=== PATIENT | female | born 1965 | race Hispanic/Latino ===

== ENCOUNTER 2018-04-03 14:35 | Inpatient (IN) | payer MEDICAID, OTHER ==
--- NOTE | 2018-04-03 15:04 | ED PDOC ---
Arrival/HPI - General Chief Complaint: Weakness/Neurological Deficit Time Seen by Provider: 04/03/18 14:37 Historian: Patient, EMS, Other (friend) - Critical Care Critical Care Minutes: 45 minutes - History of Present Illness Time/Duration: Other (years) Symptom Onset: Gradual Symptom Course: Worsening Severity Level: Severe Activities at Onset: Rest Associated Symptoms (Text): 04/03/18 15:01 patient complains of a several year history of generalized weakness and fatigue. She has increasing bilateral lower extremity edema. She had been a smoker and quit 5 months ago. She had been an alcoholic who stopped drinking 4 years ago. She reports a history of cirrhosis, and evaluation for liver transplant, but she stopped drinking and reports that she no longer needing a transplant and her symptoms were improving. She states that her edema has been getting worse and is now weeping. She had been able to get out of bed and walked down her stairs approximately 4 months ago, but has been unable to do so since then. She had been able to get out of her bed and chair and walk around her apartment until several weeks ago. Now she reports she is not even able to get out of bed. She arrives via ambulance. She has severe bilateral lower extremity elephantitis with weeping edema. She has anasarca to the level of her abdomen. She reports no medications and no allergies. Family/Social History - Physician Review Nursing Documentation Reviewed: Yes Family/Social History: Unknown Family HX Smoking Status: Former Smoker (quit 5 months ago) Hx Alcohol Use: No (quit 4 years ago) Hx Substance Use: No Allergies/Home Meds Allergies/Adverse Reactions: Allergies No Known Allergies Allergy (Verified 04/03/18 14:56) Review of Systems - Physician Review All systems were reviewed & negative as marked: Yes - Review of Systems Constitutional: Fatigue. absent: Fevers Respiratory: SOB. absent: Cough, Wheezing Cardiovascular: Edema (severe edema). absent: Chest Pain, Palpitations, Syncope Gastrointestinal: absent: Abdominal Pain, Nausea, Vomiting, Anorexia Musculoskeletal: absent: Back Pain, Neck Pain Neurological: absent: Headache, Dizziness, Focal Weakness Physical Exam Vital Signs Temp Pulse Resp BP Pulse Ox 04/03/18 14:59 98.0 F 88 18 90/53 L 98 Temperature: Afebrile Blood Pressure: Normal Pulse: Regular Respiratory Rate: Normal Appearance: Positive for: Well-Appearing, Non-Toxic, Comfortable, Unkept, Other (morbidly obese tearful and anxious) Pain Distress: None Mental Status: Positive for: Alert and Oriented X 3 - Systems Exam Head: Present: Atraumatic, Normocephalic Pupils: Present: PERRL Extroacular Muscles: Present: EOMI Conjunctiva: Present: Normal Mouth: Present: Moist Mucous Membranes Pharnyx: No: ERYTHEMA, EXUDATE, TONSILS ENLARGED Neck: Present: Normal Range of Motion Respiratory/Chest: Present: Clear to Auscultation, Good Air Exchange, Decreased Breath Sounds. No: Respiratory Distress, Accessory Muscle Use Cardiovascular: Present: Regular Rate and Rhythm, Normal S1, S2. No: Murmurs Abdomen: Present: Other (anasarca). No: Tenderness, Distention, Peritoneal Signs Upper Extremity: Present: Normal Inspection, Other (ecchymosis in various stages of healing). No: Cyanosis, Edema Lower Extremity: Present: Normal Inspection, Edema (elephantitis) Neurological: Present: GCS=15, CN II-XII Intact, Speech Normal Skin: Present: Warm, Dry, Normal Color, Pale. No: Rashes Psychiatric: Present: Alert, Oriented x 3, Normal Insight, Normal Concentration, Anxious Medical Decision Making ED Course and Treatment: 04/03/18 15:31 EKG shows normal sinus rhythm rate approximately [address] or T-wave changes. 04/03/18 16:50 after hemoglobin of 2 was obtained I went back and did a rectal exam on the patient. Her stool is black guaiac positive. 5 units of packed red blood cells have been ordered along with Protonix and a drip. Case was discussed with the hospitalist and waste collector and patient will be admitted to ICU. - RAD Interpretation Radiology Orders: 04/03/18 14:57 CHEST PORTABLE [RAD] Stat 04/03/18 14:58 DUPLEX LOWER EXTRM VEIN BILAT [US] Stat Disposition/Present on Arrival - Present on Arrival Any Indicators Present on Arrival: No History of DVT/PE: No History of Uncontrolled Diabetes: No Urinary Catheter: No History of Decub. Ulcer: No - Disposition Have Diagnosis and Disposition been Completed?: Yes Diagnosis: Renal failure, GI bleed, Anemia, Anasarca, Congestive heart failure, Obesity, Weakness, Hypotension Disposition: HOSPITALIZED Disposition Time: 16:52 Patient Plan: ICU Patient Problems: Current Active Problems Problem Status Onset Anasarca Acute Anemia Acute Congestive heart failure Acute GI bleed Acute Hypotension Acute Obesity Acute Renal failure Acute Weakness Acute Condition: CRITICAL Discharge Instructions (ExitCare): Heart Failure (ED), Weakness (ED) Forms: [employer] (Latvian)
[2018-04-03 16:05] LABS: INR 1.15; PARTIAL THROMBOPLASTIN TIME 30.7 Seconds (25.1-36.5); PROTHROMBIN TIME 13.2 SECONDS (9.4-12.5)
[2018-04-03 16:08] LABS: ALB/GLOB RATIO 0.7 (1.1-1.8); ALBUMIN 2.6 g/dL (3.0-4.8); CALCIUM 7.9 mg/dL (8.4-10.5)
[2018-04-03 16:26] LABS: CK MB% 1.7 % (2.5-3.0); TROPONIN I 0.11 ng/mL
[2018-04-03 16:48] LABS: BASO # 0.02 K/mm3 (0.0-2.0); BASO % 0.2 % (0.0-3.0); EOS # 0.3 (0.0-0.7); EOS % 2.5 % (1.5-5.0); GRAN # 7.92 (1.4-6.5); GRAN % 79.5 % (50.0-68.0); HEMOGLOBIN 2.3 g/dL (12.0-16.0); LYMPH % 10.4 % (22.0-35.0); MEAN CORPUSCULAR HEMOGLOBIN 21.3 pg (25.0-35.0); MEAN CORPUSCULAR HGB CONC 28.4 g/dl (31.0-37.0); MEAN PLATELET VOLUME 8.9 fl (7.0-11.0); MONO # 0.7 (0.1-0.6); MONO % 7.4 % (1.0-6.0); RBC 1.08 10^6/uL (3.5-6.1); RED CELL DISTRIBUTION WIDTH 24.1 % (11.5-14.5)
[2018-04-03 17:48] LABS: ARTERIAL BLOOD GAS HEMOGLOBIN < 3.0 g/dL (11.7-17.4); ARTERIAL BLOOD GAS PCO2 22 mm/Hg (35-45); ARTERIAL BLOOD GAS PH 7.26 (7.35-7.45); ARTERIAL BLOOD GAS TCO2 10.6 mmol.L (22-28)
--- NOTE | 2018-04-03 17:54 | CP.PCM.CON ---
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 Pt reports she is mostly bed-bound, and does not ambulate. Pt denies fever, chills, cough, chest pain, SOB, palpitations, AYALA, dizziness, abd pain, N/V/D. No other constitutional symptoms. Pt has been using NSAIDs for pain relief. 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, alcohol abuse (quit drinking 4y ago), depression PSHx Gastric surgery for weight loss Allergies NKDA FHx DM, Hypothyroid Social former EtOH abuse, denies drug use, smoking, Unemployed ROS as above Review of Systems - Review of Systems Review of Systems: as per HPI Past Patient History - Past Social History Smoking Status: Former Smoker (quit 5 months ago) - PSYCHIATRIC Hx Substance Use: No Meds Allergies/Adverse Reactions: Allergies Allergy/AdvReac Type Severity Reaction Status Date / Time No Known Allergies Allergy Verified 04/03/18 14:56 Physical Exam - Constitutional Appears: In Acute Distress, Older Than Stated Age, Chronically Ill - Head Exam Head Exam: ATRAUMATIC - Eye Exam Pupil Exam: NORMAL ACCOMODATION Additional comments: Pale conjuctiva - Neck Exam Neck exam: Positive for: Full Rom - Respiratory Exam Respiratory Exam: Decreased Breath Sounds, NORMAL BREATHING PATTERN - Cardiovascular Exam Cardiovascular Exam: REGULAR RHYTHM, +S1, +S2 - GI/Abdominal Exam GI & Abdominal Exam: Normal Bowel Sounds, Soft - Extremities Exam Extremities exam: Positive for: normal inspection - Back Exam Back exam: NORMAL INSPECTION - Neurological Exam Neurological exam: Alert, Oriented x3 - Psychiatric Exam Psychiatric exam: Anxious, Depressed - Skin Skin Exam: Normal Color, Warm Results - Vital Signs Recent Vital Signs: Last Vital Signs Temp 97.7 F 04/03/18 17:12 Pulse 84 04/03/18 17:12 Resp 18 04/03/18 17:12 BP 120/43 L 04/03/18 17:12 Pulse Ox 100 04/03/18 17:12 - Labs Result Diagrams: 04/03/18 16:45 04/03/18 15:44 Labs: Laboratory Results - last 24 hr 04/03/18 04/03/18 04/03/18 15:44 15:44 15:44 WBC RBC Hgb Hct MCV MCH MCHC RDW Plt Count MPV Gran % Lymph % (Auto) [place] % (Auto) Eos % (Auto) Baso % (Auto) Gran # Lymph # (Auto) [place] # (Auto) Eos # (Auto) Baso # (Auto) PT 13.2 H INR 1.15 APTT 30.7 Sodium 133 Potassium 5.0 Chloride 107 Carbon Dioxide 11 L Anion Gap 20 BUN 102 H Creatinine 7.4 H* Est GFR ( Amer) 7 Est GFR (Non-Af Amer) 6 Random Glucose 105 Calcium 7.9 L Phosphorus 9.7 H Magnesium 3.2 H Total Bilirubin 1.9 H AST 50 H ALT 31 Alkaline Phosphatase 166 H Ammonia 39 H Lactate Dehydrogenase 518 Total Creatine Kinase 291 H CK-MB (CK-2) 5.0 H CK-MB (CK-2) % 1.7 L Troponin I 0.11 NT-Pro-B Natriuret Pep 23924 H Total Protein 6.3 Albumin 2.6 L Globulin 3.7 Albumin/Globulin Ratio 0.7 L TSH 3rd Generation Alcohol, Quantitative 04/03/18 04/03/18 15:44 16:45 WBC 10.0 RBC 1.08 L Hgb 2.3 L* Hct 8.1 L* MCV 75.0 L MCH 21.3 L MCHC 28.4 L RDW 24.1 H Plt Count 164 MPV 8.9 Gran % 79.5 H Lymph % (Auto) 10.4 L [place] % (Auto) 7.4 H Eos % (Auto) 2.5 Baso % (Auto) 0.2 Gran # 7.92 H Lymph # (Auto) 1.0 L [place] # (Auto) 0.7 H Eos # (Auto) 0.3 Baso # (Auto) 0.02 PT INR APTT Sodium Potassium Chloride Carbon Dioxide Anion Gap BUN Creatinine Est GFR ( Amer) Est GFR (Non-Af Amer) Random Glucose Calcium Phosphorus Magnesium Total Bilirubin AST ALT Alkaline Phosphatase Ammonia Lactate Dehydrogenase Total Creatine Kinase CK-MB (CK-2) CK-MB (CK-2) % Troponin I NT-Pro-B Natriuret Pep Total Protein Albumin Globulin Albumin/Globulin Ratio TSH 3rd Generation 6.37 H Alcohol, Quantitative < 10 Assessment & Plan - Assessment and Plan (Free Text) Assessment: 52yo female with PMHx of Liver failure, morbid obesity, depression, etoh abuse, presents with lethargy, fatigue, multiple lab abnormalities, including anemia, ARF Anemia ARF Metabolic Acidosis Morbid Obesity GIB Hx etOH abuse Hx Depression Fatigue Lethargy - currently afebrile, BP 120/60, HD stable, in NAD, on exam markedly pale, anxious, Guiac+ - labs, imaging, chart reviewed - HH 2.3, elevated Cr, bicarb 11, ABG pending, CXR pending, CT A/P pending - given PPI IVP, prbc ordered by ER Recommend: - supp o2 as needed, duonebs PRN, frequent lung checks in setting of prbc transfusion - panculture, UCx, BCx, UA, check Procal, hold off abx for now, WBC wnl, no fever - obtain CXR - CT A/P without contrast - ECHO - NPO - check iron studies, Folate, B12, retic count, LDH, peripheral smear - transfuse total of 5u prbc, 2u FFP - GI consult - PPI gtt, Octreotide gtt - Renal consult - Obtain ABG, may need IVF with Bicarb - I/Os, currently has 100cc of urine in the lee - psych eval - maintain 2 large bore PIVs - GI ppx, - DVT ppx, SCDs - Admit to MICU Critical care time 35 minutes
[2018-04-03 17:57] LABS: URINE BILIRUBIN SMALL (NEGATIVE); URINE BLOOD MODERATE (NEGATIVE); URINE GLUCOSE (UA) NEGATIVE (NEGATIVE); URINE LEUKOCYTE ESTERASE SMALL Leu/uL (NEGATIVE); URINE PROTEIN TRACE mg/dL (<30 mg/dL); URINE UROBILINOGEN 0.2 E.U./dL (<1 E.U./dL)
[2018-04-03 17:58] LABS: URINE APPEARANCE SLIGHT-CLOUDY (CLEAR); URINE COLOR YELLOW (YELLOW)
[2018-04-03 18:00] LABS: ARTERIAL BLOOD GAS HCO3 9.9 mmol/L (21-28)
[2018-04-03] MEDS ORDERED: Sodium Bicarbonate (8.4%) 50 Meq Syringe IVP ONE ×2 (18:05→18:16)
[2018-04-03 18:09] LABS: BARBITURATES, UR NEGATIVE (NEGATIVE); BENZODIAZEPINES, UR NEGATIVE (NEGATIVE); OPIATES, UR NEGATIVE (NEGATIVE); PHENCYCLIDINE, UR NEGATIVE (NEGATIVE)
[2018-04-03 18:10] LABS: URINE BACTERIA LARGE /hpf
[2018-04-03] MEDS ORDERED: Pantoprazole 40mg/100mL NS 40 MG/100 ML BAG IVPB SCH (18:15)
--- NOTE | 2018-04-03 18:51 | RAD ---
HISTORY: sob COMPARISON: No prior. TECHNIQUE: Chest, one view. FINDINGS: Examination limited by habitus. LUNGS: No focal consolidation. Please note that chest x-ray has limited sensitivity for the detection of pulmonary masses. PLEURA: No significant pleural effusion identified. No definite pneumothorax . CARDIOVASCULAR: Mild cardiomegaly. No significant atherosclerotic calcification present. OSSEOUS STRUCTURES: No acute osseous abnormality identified. VISUALIZED UPPER ABDOMEN: Unremarkable. OTHER FINDINGS: None. IMPRESSION: Mild cardiomegaly. No focal consolidation.
--- NOTE | 2018-04-03 19:07 | CP.PCM.HP ---
<Bernabe Bueno - Last Filed: 04/03/18 20:10> History of Present Illness - History of Present Illness History of Present Illness: Medicine History and Physical for Dr. Ojeda CC: Weakness Patient is a 52 yo F with PMH with liver failure, morbid obesity, alcohol abuse and depression presents to [facility] due worsening fatigue, weakness, and dark stools. Patient states that she has had diarrhea for the past 3 days that have been black and tarry. Patient states that she has had a lot of personal issues at home that caused her to abuse alcohol 4-5 years ago, she subsequently went into liver failure. However, her liver improved without transplant and cessation of alcohol. Patient reports taking large amounts of Aleve, B6, and folate to help her weakness. Patient is mostly bed bound and only moves a few steps a day in her home. Patient does not follow with a PMD. Patient denied CP, n/v, abdominal pain, fever, chills, AYALA, or dizziness. PMH: liver failure, morbid obesity, alcohol abuse and depression Surg: Gastric surgery for weight loss All: NKDA SH: former EtOH abuse, denies drug use, smoking FHx: DM, Hypothyroid Present on Admission - Present on Admission Any Indicators Present on Admission: No Review of Systems - Review of Systems All systems: reviewed and no additional remarkable complaints except (12 point ROS reviewed and is negative other that what is stated in HPI.) Past Patient History - Past Social History Smoking Status: Former Smoker (quit 5 months ago) - RENAL Other/Comment: renal stent as child - GASTROINTESTINAL Hx Liver Failure: Yes (Patient states its resolved) - PSYCHIATRIC Hx Substance Use: No - SURGICAL HISTORY Hx Surgeries: Yes Hx Arthroscopy: Yes - ANESTHESIA Hx Anesthesia: Yes Meds Allergies/Adverse Reactions: Allergies Allergy/AdvReac Type Severity Reaction Status Date / Time No Known Allergies Allergy Verified 04/03/18 14:56 Physical Exam - Constitutional Appears: No Acute Distress - Head Exam Head Exam: NORMAL INSPECTION - Eye Exam Eye Exam: EOMI, PERRL Additional comments: conjunctival pallor - ENT Exam ENT Exam: Mucous Membranes Moist, Normal Exam - Neck Exam Neck exam: Positive for: Normal Inspection - Respiratory Exam Respiratory Exam: Clear to Auscultation Bilateral. absent: Rales, Rhonchi, Wheezes - Cardiovascular Exam Cardiovascular Exam: RRR, +S1, +S2. absent: Diastolic murmur, Gallop, Rubs, Systolic Murmur - GI/Abdominal Exam GI & Abdominal Exam: Soft. absent: Distended, Guarding, Rebound, Tenderness - Extremities Exam Extremities exam: Positive for: pedal edema Additional comments: 3+ edema diffuse, b/l LE - Back Exam Back exam: NORMAL INSPECTION - Neurological Exam Neurological exam: Alert, CN II-XII Intact, Oriented x3 - Psychiatric Exam Psychiatric exam: Depressed - Skin Skin Exam: Dry, Intact, Pallor, Pallor Results - Vital Signs Recent Vital Signs: Last Vital Signs Temp 97.7 F 04/03/18 17:12 Pulse 74 04/03/18 18:06 Resp 18 04/03/18 18:06 BP 120/53 L 04/03/18 18:06 Pulse Ox 100 04/03/18 18:06 - Labs Result Diagrams: 04/03/18 16:45 04/03/18 15:44 Labs: Laboratory Results - last 24 hr 04/03/18 04/03/18 04/03/18 15:44 15:44 15:44 WBC RBC Hgb Hct MCV MCH MCHC RDW Plt Count MPV Gran % Lymph % (Auto) Lipscomb % (Auto) Eos % (Auto) Baso % (Auto) Gran # Lymph # (Auto) Lipscomb # (Auto) Eos # (Auto) Baso # (Auto) Retic Count PT 13.2 H INR 1.15 APTT 30.7 pCO2 pO2 HCO3 ABG pH ABG Total CO2 ABG Base Excess ABG Hemoglobin FiO2 Sodium 133 Potassium 5.0 Chloride 107 Carbon Dioxide 11 L Anion Gap 20 BUN 102 H Creatinine 7.4 H* Est GFR ( Amer) 7 Est GFR (Non-Af Amer) 6 Random Glucose 105 Calcium 7.9 L Phosphorus 9.7 H Magnesium 3.2 H Total Bilirubin 1.9 H AST 50 H ALT 31 Alkaline Phosphatase 166 H Ammonia 39 H Lactate Dehydrogenase 518 Total Creatine Kinase 291 H CK-MB (CK-2) 5.0 H CK-MB (CK-2) % 1.7 L Troponin I 0.11 NT-Pro-B Natriuret Pep 38885 H Total Protein 6.3 Albumin 2.6 L Globulin 3.7 Albumin/Globulin Ratio 0.7 L TSH 3rd Generation Urine Color Urine Appearance Urine pH Ur Specific [place] Urine Protein Urine Glucose (UA) Urine Ketones Urine Blood Urine Nitrate Urine Bilirubin Urine Urobilinogen Ur Leukocyte Esterase Urine RBC Urine WBC Ur Epithelial Cells Urine Bacteria Urine Opiates Screen Urine Methadone Screen Ur Barbiturates Screen Ur Phencyclidine Scrn Ur Amphetamines Screen U Benzodiazepines Scrn U Oth Cocaine Metabols U Cannabinoids Screen Alcohol, Quantitative Blood Type Antibody Screen Crossmatch BBK History Checked 04/03/18 04/03/18 04/03/18 15:44 16:45 17:39 WBC 10.0 RBC 1.08 L Hgb 2.3 L* Hct 8.1 L* MCV 75.0 L MCH 21.3 L MCHC 28.4 L RDW 24.1 H Plt Count 164 MPV 8.9 Gran % 79.5 H Lymph % (Auto) 10.4 L Lipscomb % (Auto) 7.4 H Eos % (Auto) 2.5 Baso % (Auto) 0.2 Gran # 7.92 H Lymph # (Auto) 1.0 L Lipscomb # (Auto) 0.7 H Eos # (Auto) 0.3 Baso # (Auto) 0.02 Retic Count PT INR APTT pCO2 pO2 HCO3 ABG pH ABG Total CO2 ABG Base Excess ABG Hemoglobin FiO2 Sodium Potassium Chloride Carbon Dioxide Anion Gap BUN Creatinine Est GFR ( Amer) Est GFR (Non-Af Amer) Random Glucose Calcium Phosphorus Magnesium Total Bilirubin AST ALT Alkaline Phosphatase Ammonia Lactate Dehydrogenase Total Creatine Kinase CK-MB (CK-2) CK-MB (CK-2) % Troponin I NT-Pro-B Natriuret Pep Total Protein Albumin Globulin Albumin/Globulin Ratio TSH 3rd Generation 6.37 H Urine Color Yellow Urine Appearance Slight-cloudy Urine pH 5.0 Ur Specific [place] >= 1.030 Urine Protein Trace H Urine Glucose (UA) Negative Urine Ketones Trace H Urine Blood Moderate H Urine Nitrate Negative Urine Bilirubin Small H Urine Urobilinogen 0.2 Ur Leukocyte Esterase Small H Urine RBC 5 - 10 H Urine WBC 1 - 3 Ur Epithelial Cells 3 - 4 Urine Bacteria Large Urine Opiates Screen Urine Methadone Screen Ur Barbiturates Screen Ur Phencyclidine Scrn Ur Amphetamines Screen U Benzodiazepines Scrn U Oth Cocaine Metabols U Cannabinoids Screen Alcohol, Quantitative < 10 Blood Type Antibody Screen Crossmatch BBK History Checked 04/03/18 04/03/18 04/03/18 17:39 17:41 17:44 WBC RBC Hgb Hct MCV MCH MCHC RDW Plt Count MPV Gran % Lymph % (Auto) Lipscomb % (Auto) Eos % (Auto) Baso % (Auto) Gran # Lymph # (Auto) Lipscomb # (Auto) Eos # (Auto) Baso # (Auto) Retic Count PT INR APTT pCO2 22 L pO2 114.0 H HCO3 9.9 L* ABG pH 7.26 L ABG Total CO2 10.6 L ABG Base Excess -15.1 L ABG Hemoglobin < 3.0 L FiO2 21.0 Sodium Potassium Chloride Carbon Dioxide Anion Gap BUN Creatinine Est GFR ( Amer) Est GFR (Non-Af Amer) Random Glucose Calcium Phosphorus Magnesium Total Bilirubin AST ALT Alkaline Phosphatase Ammonia Lactate Dehydrogenase Total Creatine Kinase CK-MB (CK-2) CK-MB (CK-2) % Troponin I NT-Pro-B Natriuret Pep Total Protein Albumin Globulin Albumin/Globulin Ratio TSH 3rd Generation Urine Color Urine Appearance Urine pH Ur Specific [place] Urine Protein Urine Glucose (UA) Urine Ketones Urine Blood Urine Nitrate Urine Bilirubin Urine Urobilinogen Ur Leukocyte Esterase Urine RBC Urine WBC Ur Epithelial Cells Urine Bacteria Urine Opiates Screen Negative Urine Methadone Screen Negative Ur Barbiturates Screen Negative Ur Phencyclidine Scrn Negative Ur Amphetamines Screen Negative U Benzodiazepines Scrn Negative U Oth Cocaine Metabols Negative U Cannabinoids Screen Negative Alcohol, Quantitative Blood Type B NEGATIVE Antibody Screen Negative Crossmatch See Detail BBK History Checked No verified bt 04/03/18 18:15 WBC RBC Hgb Hct MCV MCH MCHC RDW Plt Count MPV Gran % Lymph % (Auto) Lipscomb % (Auto) Eos % (Auto) Baso % (Auto) Gran # Lymph # (Auto) Lipscomb # (Auto) Eos # (Auto) Baso # (Auto) Retic Count 5.63 H PT INR APTT pCO2 pO2 HCO3 ABG pH ABG Total CO2 ABG Base Excess ABG Hemoglobin FiO2 Sodium Potassium Chloride Carbon Dioxide Anion Gap BUN Creatinine Est GFR ( Amer) Est GFR (Non-Af Amer) Random Glucose Calcium Phosphorus Magnesium Total Bilirubin AST ALT Alkaline Phosphatase Ammonia Lactate Dehydrogenase Total Creatine Kinase CK-MB (CK-2) CK-MB (CK-2) % Troponin I NT-Pro-B Natriuret Pep Total Protein Albumin Globulin Albumin/Globulin Ratio TSH 3rd Generation Urine Color Urine Appearance Urine pH Ur Specific [place] Urine Protein Urine Glucose (UA) Urine Ketones Urine Blood Urine Nitrate Urine Bilirubin Urine Urobilinogen Ur Leukocyte Esterase Urine RBC Urine WBC Ur Epithelial Cells Urine Bacteria Urine Opiates Screen Urine Methadone Screen Ur Barbiturates Screen Ur Phencyclidine Scrn Ur Amphetamines Screen U Benzodiazepines Scrn U Oth Cocaine Metabols U Cannabinoids Screen Alcohol, Quantitative Blood Type Antibody Screen Crossmatch BBK History Checked Assessment & Plan - Assessment and Plan (Free Text) Assessment: Patient is a 52 yo F with PMH liver failure, morbid obesity, and EtOH abuse presents to [facility] for worsening weakness. Patient likely to have a GI bleed with Hgb of 2.3 and guaiac positive exam. Patient is also in renal failure. Plan: 1. Anemia - Microcytic, hypochromic - Iron studies consistent with iron deficiency - Likely 2/2 GI bleed - CBC q6h - Transfuse 6 units pRBC, 2 FFP, 1 platelets - Protonix gtt - Octreotide gtt - Abd/pelvis CT and Head CT ordered - NPO, accuchecks q6h - GI consulted 2. Acute Renal Failure - Cr 7.4, baseline unknown - Urine electrolytes to evaluate FENa - Strict I's and O's - Repeat BMP at Midnight - Nephrology consulted 3. Metabolic Acidosis - pH 7.26, HCO3 11, pCO2 22 - D5W with bicarb gtt - Repeat ABG at Midnight 4. Elevated BNP - BNP 50184 - Echo ordered 5. Depression - Psych consulted GI/DVT PPx - Protonix gtt - SCDs Patient seen and discussed in detail with Dr. Ojeda. Zacarias Bueno, PGY2 <Sagrario Ojeda - Last Filed: 04/04/18 08:46> Results - Vital Signs Recent Vital Signs: Last Vital Signs Temp 94.4 F L 04/03/18 22:18 Pulse 69 04/04/18 08:30 Resp 23 04/04/18 08:30 BP 99/43 L 04/04/18 08:30 Pulse Ox 91 L 04/04/18 08:30 - Labs Result Diagrams: 04/04/18 04:14 04/04/18 04:14 Labs: Laboratory Results - last 24 hr 04/03/18 04/03/18 04/03/18 15:44 15:44 15:44 WBC RBC Hgb Hct MCV MCH MCHC RDW Plt Count MPV Gran % Lymph % (Auto) Lipscomb % (Auto) Eos % (Auto) Baso % (Auto) Gran # Lymph # (Auto) Lipscomb # (Auto) Eos # (Auto) Baso # (Auto) Retic Count PT 13.2 H INR 1.15 APTT 30.7 pCO2 pO2 HCO3 ABG pH ABG Total CO2 ABG O2 Saturation ABG O2 Content ABG Base Excess ABG Hemoglobin ABG Carboxyhemoglobin POC ABG HHb (Measured) ABG Methemoglobin ABG O2 Capacity Hgb O2 Saturation FiO2 Sodium 133 Potassium 5.0 Chloride 107 Carbon Dioxide 11 L Anion Gap 20 BUN 102 H Creatinine 7.4 H* Est GFR ( Amer) 7 Est GFR (Non-Af Amer) 6 POC Glucose (mg/dL) Random Glucose 105 Calcium 7.9 L Phosphorus 9.7 H Magnesium 3.2 H Iron TIBC % Saturation Total Bilirubin 1.9 H AST 50 H ALT 31 Alkaline Phosphatase 166 H Ammonia 39 H Lactate Dehydrogenase 518 Total Creatine Kinase 291 H CK-MB (CK-2) 5.0 H CK-MB (CK-2) % 1.7 L Troponin I 0.11 NT-Pro-B Natriuret Pep 73200 H Total Protein 6.3 Albumin 2.6 L Globulin 3.7 Albumin/Globulin Ratio 0.7 L TSH 3rd Generation Urine Color Urine Appearance Urine pH Ur Specific [place] Urine Protein Urine Glucose (UA) Urine Ketones Urine Blood Urine Nitrate Urine Bilirubin Urine Urobilinogen Ur Leukocyte Esterase Urine RBC Urine WBC Ur Epithelial Cells Urine Bacteria Ur Random Creatinine Ur Random Sodium Ur Random Urea Nitrogn Urine Opiates Screen Urine Methadone Screen Ur Barbiturates Screen Ur Phencyclidine Scrn Ur Amphetamines Screen U Benzodiazepines Scrn U Oth Cocaine Metabols U Cannabinoids Screen Alcohol, Quantitative Blood Type Blood Type Confirm Antibody Screen Crossmatch BBK History Checked 04/03/18 04/03/18 04/03/18 15:44 16:45 17:39 WBC 10.0 RBC 1.08 L Hgb 2.3 L* Hct 8.1 L* MCV 75.0 L MCH 21.3 L MCHC 28.4 L RDW 24.1 H Plt Count 164 MPV 8.9 Gran % 79.5 H Lymph % (Auto) 10.4 L Lipscomb % (Auto) 7.4 H Eos % (Auto) 2.5 Baso % (Auto) 0.2 Gran # 7.92 H Lymph # (Auto) 1.0 L Lipscomb # (Auto) 0.7 H Eos # (Auto) 0.3 Baso # (Auto) 0.02 Retic Count PT INR APTT pCO2 pO2 HCO3 ABG pH ABG Total CO2 ABG O2 Saturation ABG O2 Content ABG Base Excess ABG Hemoglobin ABG Carboxyhemoglobin POC ABG HHb (Measured) ABG Methemoglobin ABG O2 Capacity Hgb O2 Saturation FiO2 Sodium Potassium Chloride Carbon Dioxide Anion Gap BUN Creatinine Est GFR ( Amer) Est GFR (Non-Af Amer) POC Glucose (mg/dL) Random Glucose Calcium Phosphorus Magnesium Iron TIBC % Saturation Total Bilirubin AST ALT Alkaline Phosphatase Ammonia Lactate Dehydrogenase Total Creatine Kinase CK-MB (CK-2) CK-MB (CK-2) % Troponin I NT-Pro-B Natriuret Pep Total Protein Albumin Globulin Albumin/Globulin Ratio TSH 3rd Generation 6.37 H Urine Color Yellow Urine Appearance Slight-cloudy Urine pH 5.0 Ur Specific [place] >= 1.030 Urine Protein Trace H Urine Glucose (UA) Negative Urine Ketones Trace H Urine Blood Moderate H Urine Nitrate Negative Urine Bilirubin Small H Urine Urobilinogen 0.2 Ur Leukocyte Esterase Small H Urine RBC 5 - 10 H Urine WBC 1 - 3 Ur Epithelial Cells 3 - 4 Urine Bacteria Large Ur Random Creatinine Ur Random Sodium Ur Random Urea Nitrogn Urine Opiates Screen Urine Methadone Screen Ur Barbiturates Screen Ur Phencyclidine Scrn Ur Amphetamines Screen U Benzodiazepines Scrn U Oth Cocaine Metabols U Cannabinoids Screen Alcohol, Quantitative < 10 Blood Type Blood Type Confirm Antibody Screen Crossmatch BBK History Checked 04/03/18 04/03/18 04/03/18 17:39 17:41 17:44 WBC RBC Hgb Hct MCV MCH MCHC RDW Plt Count MPV Gran % Lymph % (Auto) Lipscomb % (Auto) Eos % (Auto) Baso % (Auto) Gran # Lymph # (Auto) Lipscomb # (Auto) Eos # (Auto) Baso # (Auto) Retic Count PT INR APTT pCO2 22 L pO2 114.0 H HCO3 9.9 L* ABG pH 7.26 L ABG Total CO2 10.6 L ABG O2 Saturation ABG O2 Content ABG Base Excess -15.1 L ABG Hemoglobin < 3.0 L ABG Carboxyhemoglobin POC ABG HHb (Measured) ABG Methemoglobin ABG O2 Capacity Hgb O2 Saturation FiO2 21.0 Sodium Potassium Chloride Carbon Dioxide Anion Gap BUN Creatinine Est GFR ( Amer) Est GFR (Non-Af Amer) POC Glucose (mg/dL) Random Glucose Calcium Phosphorus Magnesium Iron TIBC % Saturation Total Bilirubin AST ALT Alkaline Phosphatase Ammonia Lactate Dehydrogenase Total Creatine Kinase CK-MB (CK-2) CK-MB (CK-2) % Troponin I NT-Pro-B Natriuret Pep Total Protein Albumin Globulin Albumin/Globulin Ratio TSH 3rd Generation Urine Color Urine Appearance Urine pH Ur Specific [place] Urine Protein Urine Glucose (UA) Urine Ketones Urine Blood Urine Nitrate Urine Bilirubin Urine Urobilinogen Ur Leukocyte Esterase Urine RBC Urine WBC Ur Epithelial Cells Urine Bacteria Ur Random Creatinine Ur Random Sodium Ur Random Urea Nitrogn Urine Opiates Screen Negative Urine Methadone Screen Negative Ur Barbiturates Screen Negative Ur Phencyclidine Scrn Negative Ur Amphetamines Screen Negative U Benzodiazepines Scrn Negative U Oth Cocaine Metabols Negative U Cannabinoids Screen Negative Alcohol, Quantitative Blood Type B NEGATIVE Blood Type Confirm Antibody Screen Negative Crossmatch See Detail BBK History Checked No verified bt 04/03/18 04/03/18 04/03/18 18:13 18:15 18:50 WBC RBC Hgb Hct MCV MCH MCHC RDW Plt Count MPV Gran % Lymph % (Auto) Lipscomb % (Auto) Eos % (Auto) Baso % (Auto) Gran # Lymph # (Auto) Lipscomb # (Auto) Eos # (Auto) Baso # (Auto) Retic Count 5.63 H PT INR APTT pCO2 pO2 HCO3 ABG pH ABG Total CO2 ABG O2 Saturation ABG O2 Content ABG Base Excess ABG Hemoglobin ABG Carboxyhemoglobin POC ABG HHb (Measured) ABG Methemoglobin ABG O2 Capacity Hgb O2 Saturation FiO2 Sodium Potassium Chloride Carbon Dioxide Anion Gap BUN Creatinine Est GFR ( Amer) Est GFR (Non-Af Amer) POC Glucose (mg/dL) Random Glucose Calcium Phosphorus Magnesium Iron 19 L TIBC 338 % Saturation 6 L Total Bilirubin AST ALT Alkaline Phosphatase Ammonia Lactate Dehydrogenase Total Creatine Kinase CK-MB (CK-2) CK-MB (CK-2) % Troponin I NT-Pro-B Natriuret Pep Total Protein Albumin Globulin Albumin/Globulin Ratio TSH 3rd Generation Urine Color Urine Appearance Urine pH Ur Specific [place] Urine Protein Urine Glucose (UA) Urine Ketones Urine Blood Urine Nitrate Urine Bilirubin Urine Urobilinogen Ur Leukocyte Esterase Urine RBC Urine WBC Ur Epithelial Cells Urine Bacteria Ur Random Creatinine Ur Random Sodium Ur Random Urea Nitrogn Urine Opiates Screen Urine Methadone Screen Ur Barbiturates Screen Ur Phencyclidine Scrn Ur Amphetamines Screen U Benzodiazepines Scrn U Oth Cocaine Metabols U Cannabinoids Screen Alcohol, Quantitative Blood Type Blood Type Confirm B NEGATIVE Antibody Screen Crossmatch BBK History Checked 04/03/18 04/04/18 04/04/18 22:58 00:40 01:30 WBC 9.9 RBC 1.38 L Hgb 3.4 L* Hct 11.1 L* MCV 80.4 D MCH 24.6 L MCHC 30.6 L RDW 26.0 H Plt Count 164 MPV 8.4 Gran % Lymph % (Auto) Lipscomb % (Auto) Eos % (Auto) Baso % (Auto) Gran # Lymph # (Auto) Lipscomb # (Auto) Eos # (Auto) Baso # (Auto) Retic Count PT INR APTT pCO2 24 L pO2 164.0 H HCO3 10.8 L ABG pH 7.26 L ABG Total CO2 11.5 L ABG O2 Saturation 98.9 H ABG O2 Content 7.2 L ABG Base Excess -15.0 L ABG Hemoglobin 5.0 L ABG Carboxyhemoglobin 2.2 H POC ABG HHb (Measured) 1.1 ABG Methemoglobin 1.2 ABG O2 Capacity 7.3 L Hgb O2 Saturation 95.5 FiO2 32.0 Sodium 131 L Potassium 5.4 H Chloride 106 Carbon Dioxide 13 L Anion Gap 18 BUN 102 H Creatinine 7.0 H Est GFR ( Amer) 7 Est GFR (Non-Af Amer) 6 POC Glucose (mg/dL) Random Glucose 120 H Calcium 7.6 L Phosphorus Magnesium Iron TIBC % Saturation Total Bilirubin AST ALT Alkaline Phosphatase Ammonia Lactate Dehydrogenase Total Creatine Kinase CK-MB (CK-2) CK-MB (CK-2) % Troponin I NT-Pro-B Natriuret Pep Total Protein Albumin Globulin Albumin/Globulin Ratio TSH 3rd Generation Urine Color Urine Appearance Urine pH Ur Specific [place] Urine Protein Urine Glucose (UA) Urine Ketones Urine Blood Urine Nitrate Urine Bilirubin Urine Urobilinogen Ur Leukocyte Esterase Urine RBC Urine WBC Ur Epithelial Cells Urine Bacteria Ur Random Creatinine Ur Random Sodium Ur Random Urea Nitrogn Urine Opiates Screen Urine Methadone Screen Ur Barbiturates Screen Ur Phencyclidine Scrn Ur Amphetamines Screen U Benzodiazepines Scrn U Oth Cocaine Metabols U Cannabinoids Screen Alcohol, Quantitative Blood Type Blood Type Confirm Antibody Screen Crossmatch BBK History Checked 04/04/18 04/04/18 04/04/18 02:17 04:14 04:14 WBC 8.8 RBC 2.06 L Hgb 5.4 L* D Hct 16.9 L* MCV 82.0 MCH 26.2 MCHC 32.0 RDW 21.1 H Plt Count 138 MPV 8.6 Gran % 75.3 H Lymph % (Auto) 11.4 L Lipscomb % (Auto) 8.9 H Eos % (Auto) 4.2 Baso % (Auto) 0.2 Gran # 6.61 H Lymph # (Auto) 1.0 L Lipscomb # (Auto) 0.8 H Eos # (Auto) 0.4 Baso # (Auto) 0.02 Retic Count PT INR APTT pCO2 pO2 HCO3 ABG pH ABG Total CO2 ABG O2 Saturation ABG O2 Content ABG Base Excess ABG Hemoglobin ABG Carboxyhemoglobin POC ABG HHb (Measured) ABG Methemoglobin ABG O2 Capacity Hgb O2 Saturation FiO2 Sodium 132 Potassium 5.3 H Chloride 106 Carbon Dioxide 13 L Anion Gap 18 BUN 101 H Creatinine 7.1 H Est GFR ( Amer) 7 Est GFR (Non-Af Amer) 6 POC Glucose (mg/dL) 154 H Random Glucose 131 H Calcium 7.8 L Phosphorus 10.1 H Magnesium 3.3 H Iron TIBC % Saturation Total Bilirubin 2.7 H AST 42 H ALT 36 Alkaline Phosphatase 153 H Ammonia Lactate Dehydrogenase Total Creatine Kinase CK-MB (CK-2) CK-MB (CK-2) % Troponin I NT-Pro-B Natriuret Pep Total Protein 6.2 Albumin 2.7 L Globulin 3.5 Albumin/Globulin Ratio 0.8 L TSH 3rd Generation Urine Color Urine Appearance Urine pH Ur Specific [place] Urine Protein Urine Glucose (UA) Urine Ketones Urine Blood Urine Nitrate Urine Bilirubin Urine Urobilinogen Ur Leukocyte Esterase Urine RBC Urine WBC Ur Epithelial Cells Urine Bacteria Ur Random Creatinine Ur Random Sodium Ur Random Urea Nitrogn Urine Opiates Screen Urine Methadone Screen Ur Barbiturates Screen Ur Phencyclidine Scrn Ur Amphetamines Screen U Benzodiazepines Scrn U Oth Cocaine Metabols U Cannabinoids Screen Alcohol, Quantitative Blood Type Blood Type Confirm Antibody Screen Crossmatch BBK History Checked 04/04/18 04/04/18 04:24 06:30 WBC RBC Hgb Hct MCV MCH MCHC RDW Plt Count MPV Gran % Lymph % (Auto) Lipscomb % (Auto) Eos % (Auto) Baso % (Auto) Gran # Lymph # (Auto) Lipscomb # (Auto) Eos # (Auto) Baso # (Auto) Retic Count PT INR APTT pCO2 pO2 HCO3 ABG pH ABG Total CO2 ABG O2 Saturation ABG O2 Content ABG Base Excess ABG Hemoglobin ABG Carboxyhemoglobin POC ABG HHb (Measured) ABG Methemoglobin ABG O2 Capacity Hgb O2 Saturation FiO2 Sodium Potassium Chloride Carbon Dioxide Anion Gap BUN Creatinine Est GFR ( Amer) Est GFR (Non-Af Amer) POC Glucose (mg/dL) 149 H Random Glucose Calcium Phosphorus Magnesium Iron TIBC % Saturation Total Bilirubin AST ALT Alkaline Phosphatase Ammonia Lactate Dehydrogenase Total Creatine Kinase CK-MB (CK-2) CK-MB (CK-2) % Troponin I NT-Pro-B Natriuret Pep Total Protein Albumin Globulin Albumin/Globulin Ratio TSH 3rd Generation Urine Color Urine Appearance Urine pH Ur Specific [place] Urine Protein Urine Glucose (UA) Urine Ketones Urine Blood Urine Nitrate Urine Bilirubin Urine Urobilinogen Ur Leukocyte Esterase Urine RBC Urine WBC Ur Epithelial Cells Urine Bacteria Ur Random Creatinine 280 Ur Random Sodium 18 Ur Random Urea Nitrogn 301 Urine Opiates Screen Urine Methadone Screen Ur Barbiturates Screen Ur Phencyclidine Scrn Ur Amphetamines Screen U Benzodiazepines Scrn U Oth Cocaine Metabols U Cannabinoids Screen Alcohol, Quantitative Blood Type Blood Type Confirm Antibody Screen Crossmatch BBK History Checked Attending/Attestation - Attestation I have personally seen and examined this patient.: Yes I have fully participated in the care of the patient.: Yes I have reviewed all pertinent clinical information: Yes Notes (Text): 04/04/18 08:41 52 yo F with PMH with liver failure, morbid obesity, alcohol abuse and depression presents to [facility] due worsening fatigue, weakness, and dark stools. Patient is found to have severe microcytic hypochromic anemia due to ongoing chronic GI bleeding, acute renal failure and severe metabolic acidosis. Hemoglobin is 2.3, Agreed with PPI infusion, octeroid infusion and PRBC transfusion, we will get GI consult. We will watch for fluid overload as BNP is elevated but patient lung sound are clear. We will start patient on Bicarbobate infusion after bolused, acute renal failure work up is ordered. We will monitor intake out put, electrolyte and will follow up CT abdomen and Pelvis. Case was discussed with ICU attending and Nephrology internal consultant. Management plan was discussed in detail with patient and family. Education was provided.
[2018-04-03] MEDS: Sodium Bicarbonate 8.4% 150 MEQ in Dextrose 5% In Water 1,000 ML IV SCH (19:13)
[2018-04-03] MEDS: Octreotide 1,250 MCG in Dextrose 5% In Water 250 ML IV SCH (19:14)
[2018-04-03] MEDS: Pantoprazole 40mg/100mL NS 40 MG/100 ML BAG IVPB SCH (19:14)
[2018-04-03 19:40] LABS: IRON 19 ug/dL (45-180)
[2018-04-03 19:49] LABS: % IRON SATURATION 6 % (20-55); TOTAL IRON BINDING CAPACITY 338 ug/dL (265-497)
[2018-04-03] MEDS: Albuterol-Ipratrop 3 mg / 0.5 (3 ml) UD IH SCH (20:20)
[2018-04-03 22:59] LABS: MEAN CELL VOLUME 80.4 fl (80.0-105.0); MEAN CORPUSCULAR HEMOGLOBIN 24.6 pg (25.0-35.0); MEAN CORPUSCULAR HGB CONC 30.6 g/dl (31.0-37.0); RBC 1.38 10^6/uL (3.5-6.1)
[2018-04-03 23:00] LABS: MEAN PLATELET VOLUME 8.4 fl (7.0-11.0)
[2018-04-03 23:01] LABS: HEMOGLOBIN 3.4 g/dL (12.0-16.0)
[2018-04-03 23:02] LABS: WHITE BLOOD COUNT 9.9 10^3/uL (4.5-11.0)
[2018-04-04 01:27] LABS: CALCIUM 7.6 mg/dL (8.4-10.5)
[2018-04-04 01:48] LABS: ARTERIAL BLOOD GAS HCO3 10.8 mmol/L (21-28); ARTERIAL BLOOD GAS O2 CAPACITY 7.3 mL/dl (16-24); ARTERIAL BLOOD GAS O2 CONTENT 7.2 ML/dl (15-23); ARTERIAL BLOOD GAS O2 SAT 98.9 % (95-98); ARTERIAL BLOOD GAS PCO2 24 mm/Hg (35-45); ARTERIAL BLOOD GAS PH 7.26 (7.35-7.45); ARTERIAL BLOOD GAS TCO2 11.5 mmol.L (22-28)
[2018-04-04] MEDS: Albuterol-Ipratrop 3 mg / 0.5 (3 ml) UD IH SCH ×4 (02:30→21:15)
[2018-04-04 03:41] VITALS: BMI 52.4
[2018-04-04] MEDS ORDERED: Dextrose 50% SYRINGE Inj (50 ml) IVP ONE (04:02)
[2018-04-04] MEDS ORDERED: Insulin Regular 1 UNITS/0.01 ML ML SC ONE (04:03)
[2018-04-04 04:35] LABS: ALB/GLOB RATIO 0.8 (1.1-1.8); ALBUMIN 2.7 g/dL (3.0-4.8); CALCIUM 7.8 mg/dL (8.4-10.5)
[2018-04-04 04:50] LABS: BASO # 0.02 K/mm3 (0.0-2.0); BASO % 0.2 % (0.0-3.0); EOS # 0.4 (0.0-0.7); EOS % 4.2 % (1.5-5.0); GRAN # 6.61 (1.4-6.5); GRAN % 75.3 % (50.0-68.0); LYMPH % 11.4 % (22.0-35.0); MEAN CORPUSCULAR HEMOGLOBIN 26.2 pg (25.0-35.0); MEAN PLATELET VOLUME 8.6 fl (7.0-11.0); MONO # 0.8 (0.1-0.6); MONO % 8.9 % (1.0-6.0); RBC 2.06 10^6/uL (3.5-6.1); RED CELL DISTRIBUTION WIDTH 21.1 % (11.5-14.5); WHITE BLOOD COUNT 8.8 10^3/uL (4.5-11.0)
[2018-04-04 04:55] LABS: HEMOGLOBIN 5.4 g/dL (12.0-16.0)
[2018-04-04] MEDS ORDERED: Sod Polystyrene Sulf 15 gm/60 ml Susp PO STA (06:29)
[2018-04-04] MEDS: Sodium Bicarbonate 8.4% 150 MEQ in Dextrose 5% In Water 1,000 ML IV SCH (06:52)
--- NOTE | 2018-04-04 07:02 | CP.CCUPN ---
<Charbel Perdue - Last Filed: 04/04/18 12:34> CCU Subjective - Physician Review Subjective (Free Text): Charbel Perdue PGY-1 Progress Note for ICU Patient seen and evaluated at bedside. No acute events reported overnight. Patient received 5 units PRBC and 2 units FFP. Denies chest pain, shortness of breath, cough, headaches, dizziness. CCU Objective - Vital Signs / Intake & Output Intake and Output (Last 8hrs): Intake & Output 04/03/18 04/03/18 04/04/18 14:59 22:59 06:59 Intake Total 301 Balance 301 Weight 136.078 kg 165.924 kg Intake: Blood Product 281 Apheresis Rbc Cp2d As3 Lr 281 1st Unit [id number] Other 20 Apheresis Rbc Cp2d As3 Lr 20 1st Unit [id number] Other: Voiding Method Indwelling Catheter - Physical Exam Head: Positive for: Atraumatic, Normocephalic Pupils: Positive for: PERRL Extroacular Muscles: Positive for: EOMI Conjunctiva: Positive for: Normal Mouth: Positive for: Moist Mucous Membranes Pharnyx: Negative for: ERYTHEMA, EXUDATE, TONSILS ENLARGED Neck: Positive for: Normal Range of Motion Respiratory/Chest: Positive for: Clear to Auscultation, Good Air Exchange, Decreased Breath Sounds. Negative for: Respiratory Distress, Accessory Muscle Use Cardiovascular: Positive for: Regular Rate and Rhythm, Normal S1, S2. Negative for: Murmurs Abdomen: Positive for: Other (anasarca). Negative for: Tenderness, Distention, Peritoneal Signs Upper Extremity: Positive for: Normal Inspection, Other (ecchymosis in various stages of healing). Negative for: Cyanosis, Edema Lower Extremity: Positive for: Normal Inspection, Edema (elephantitis with ulcers) Neurological: Positive for: GCS=15, CN II-XII Intact, Speech Normal Skin: Positive for: Warm, Dry, Pale (improved s/p transfusions). Negative for: Rashes Psychiatric: Positive for: Alert, Oriented x 3, Normal Insight, Normal Concentration, Anxious - Medications Active Medications: Active Medications Generic Name Dose Route Start Last Admin Trade Name Freq PRN Reason Stop Dose Admin Albuterol/Ipratropium 3 ml 04/03/18 20:00 04/04/18 02:30 Duoneb 3 Mg/0.5 Mg (3 Ml) Ud IH 3 ml [id number] MAKAYLA Administration Albuterol/Ipratropium 3 ml 04/03/18 18:05 Duoneb 3 Mg/0.5 Mg (3 Ml) Ud IH Q2H PRN Shortness of Breath Pantoprazole Sodium 40 mg in 100 mls @ 20 mls/hr 04/03/18 18:15 04/03/18 19:14 Protonix 40mg Ivpb IVPB 20 mls/hr .Q5H MAKAYLA Administration Sodium Bicarbonate 150 meq/ 1,150 mls @ 100 mls/hr 04/03/18 18:15 04/04/18 06:52 Dextrose IV 100 mls/hr .[id number] MAKAYLA Administration Octreotide Acetate 1,250 mcg/ 252.5 mls @ 5.05 mls/hr 04/03/18 18:15 04/03/18 19:14 Dextrose IV 25 mcg/hr .Q24H MAKAYLA 5.05 mls/hr Administration Protocol 25 MCG/HR - Patient Studies Lab Studies: Lab Studies 04/04/18 04/04/18 04/04/18 Range/Units 04:24 04:14 04:14 WBC 8.8 (4.5-11.0) 10^3/uL RBC 2.06 L (3.5-6.1) 10^6/uL Hgb 5.4 L* D (12.0-16.0) g/dL Hct 16.9 L* (36.0-48.0) % MCV 82.0 (80.0-105.0) fl MCH 26.2 (25.0-35.0) pg MCHC 32.0 (31.0-37.0) g/dl RDW 21.1 H (11.5-14.5) % Plt Count 138 (120.0-450.0) 10^3/uL MPV 8.6 (7.0-11.0) fl Gran % 75.3 H (50.0-68.0) % Lymph % (Auto) 11.4 L (22.0-35.0) % [place] % (Auto) 8.9 H (1.0-6.0) % Eos % (Auto) 4.2 (1.5-5.0) % Baso % (Auto) 0.2 (0.0-3.0) % Gran # 6.61 H (1.4-6.5) Lymph # (Auto) 1.0 L (1.2-3.4) [place] # (Auto) 0.8 H (0.1-0.6) Eos # (Auto) 0.4 (0.0-0.7) Baso # (Auto) 0.02 (0.0-2.0) K/mm3 Retic Count (0.5-1.5) % PT (9.4-12.5) SECONDS INR APTT (25.1-36.5) Seconds pCO2 (35-45) mm/Hg pO2 (80-100) mm/Hg HCO3 (21-28) mmol/L ABG pH (7.35-7.45) ABG Total CO2 (22-28) mmol.L ABG O2 Saturation (95-98) % ABG O2 Content (15-23) ML/dl ABG Base Excess (-2.0-3.0) mmol/L ABG Hemoglobin (11.7-17.4) g/dL ABG Carboxyhemoglobin (0.5-1.5) % POC ABG HHb (Measured) (0-5) % ABG Methemoglobin (0.0-3.0) % ABG O2 Capacity (16-24) mL/dl Hgb O2 Saturation (95.0-98.0) % FiO2 % Sodium 132 (132-148) mmol/L Potassium 5.3 H (3.6-5.0) mmol/L Chloride 106 (98-107) mmol/L Carbon Dioxide 13 L (21-33) mmol/L Anion Gap 18 (10-20) BUN 101 H (7-21) mg/dL Creatinine 7.1 H (0.7-1.2) mg/dl Est GFR ( Amer) 7 Est GFR (Non-Af Amer) 6 POC Glucose (mg/dL) 149 H (65-110) mg/dL Random Glucose 131 H (70-110) mg/dL Calcium 7.8 L (8.4-10.5) mg/dL Phosphorus 10.1 H (2.5-4.5) mg/dL Magnesium 3.3 H (1.7-2.2) mg/dL Iron (45-180) ug/dL TIBC (265-497) ug/dL % Saturation (20-55) % Total Bilirubin 2.7 H (0.2-1.3) mg/dL AST 42 H (14-36) U/L ALT 36 (7-56) U/L Alkaline Phosphatase 153 H (38-126) U/L Ammonia (9-33) umol/L Lactate Dehydrogenase (333-699) U/L Total Creatine Kinase (35-230) U/L CK-MB (CK-2) (0.0-3.6) ng/mL CK-MB (CK-2) % (2.5-3.0) % Troponin I ng/mL NT-Pro-B Natriuret Pep (0-450) pg/mL Total Protein 6.2 (5.8-8.3) g/dL Albumin 2.7 L (3.0-4.8) g/dL Globulin 3.5 gm/dL Albumin/Globulin Ratio 0.8 L (1.1-1.8) TSH 3rd Generation (0.46-4.68) mIU/mL Urine Color (YELLOW) Urine Appearance (CLEAR) Urine pH (4.7-8.0) Ur Specific [place] (1.005-1.035) Urine Protein (<30 mg/dL) mg/dL Urine Glucose (UA) (NEGATIVE) mg/dL Urine Ketones (NEGATIVE) mg/dL Urine Blood (NEGATIVE) Urine Nitrate (NEGATIVE) Urine Bilirubin (NEGATIVE) Urine Urobilinogen (<1 E.U./dL) E.U./dL Ur Leukocyte Esterase (NEGATIVE) Johnie/uL Urine RBC (0-2) /hpf Urine WBC (0-6) /hpf Ur Epithelial Cells (0-5) /hpf Urine Bacteria (NONE) /hpf Urine Opiates Screen (NEGATIVE) Urine Methadone Screen (NEGATIVE) Ur Barbiturates Screen (NEGATIVE) Ur Phencyclidine Scrn (NEGATIVE) Ur Amphetamines Screen (NEGATIVE) U Benzodiazepines Scrn (NEGATIVE) U Oth Cocaine Metabols (NEGATIVE) U Cannabinoids Screen (NEGATIVE) Alcohol, Quantitative (0-10) mg/dL Blood Type Blood Type Confirm Antibody Screen Crossmatch BBK History Checked 04/04/18 04/04/18 04/04/18 Range/Units 02:17 01:30 00:40 WBC (4.5-11.0) 10^3/uL RBC (3.5-6.1) 10^6/uL Hgb (12.0-16.0) g/dL Hct (36.0-48.0) % MCV (80.0-105.0) fl MCH (25.0-35.0) pg MCHC (31.0-37.0) g/dl RDW (11.5-14.5) % Plt Count (120.0-450.0) 10^3/uL MPV (7.0-11.0) fl Gran % (50.0-68.0) % Lymph % (Auto) (22.0-35.0) % [place] % (Auto) (1.0-6.0) % Eos % (Auto) (1.5-5.0) % Baso % (Auto) (0.0-3.0) % Gran # (1.4-6.5) Lymph # (Auto) (1.2-3.4) [place] # (Auto) (0.1-0.6) Eos # (Auto) (0.0-0.7) Baso # (Auto) (0.0-2.0) K/mm3 Retic Count (0.5-1.5) % PT (9.4-12.5) SECONDS INR APTT (25.1-36.5) Seconds pCO2 24 L (35-45) mm/Hg pO2 164.0 H (80-100) mm/Hg HCO3 10.8 L (21-28) mmol/L ABG pH 7.26 L (7.35-7.45) ABG Total CO2 11.5 L (22-28) mmol.L ABG O2 Saturation 98.9 H (95-98) % ABG O2 Content 7.2 L (15-23) ML/dl ABG Base Excess -15.0 L (-2.0-3.0) mmol/L ABG Hemoglobin 5.0 L (11.7-17.4) g/dL ABG Carboxyhemoglobin 2.2 H (0.5-1.5) % POC ABG HHb (Measured) 1.1 (0-5) % ABG Methemoglobin 1.2 (0.0-3.0) % ABG O2 Capacity 7.3 L (16-24) mL/dl Hgb O2 Saturation 95.5 (95.0-98.0) % FiO2 32.0 % Sodium 131 L (132-148) mmol/L Potassium 5.4 H (3.6-5.0) mmol/L Chloride 106 (98-107) mmol/L Carbon Dioxide 13 L (21-33) mmol/L Anion Gap 18 (10-20) BUN 102 H (7-21) mg/dL Creatinine 7.0 H (0.7-1.2) mg/dl Est GFR ( Amer) 7 Est GFR (Non-Af Amer) 6 POC Glucose (mg/dL) 154 H (65-110) mg/dL Random Glucose 120 H (70-110) mg/dL Calcium 7.6 L (8.4-10.5) mg/dL Phosphorus (2.5-4.5) mg/dL Magnesium (1.7-2.2) mg/dL Iron (45-180) ug/dL TIBC (265-497) ug/dL % Saturation (20-55) % Total Bilirubin (0.2-1.3) mg/dL AST (14-36) U/L ALT (7-56) U/L Alkaline Phosphatase (38-126) U/L Ammonia (9-33) umol/L Lactate Dehydrogenase (333-699) U/L Total Creatine Kinase (35-230) U/L CK-MB (CK-2) (0.0-3.6) ng/mL CK-MB (CK-2) % (2.5-3.0) % Troponin I ng/mL NT-Pro-B Natriuret Pep (0-450) pg/mL Total Protein (5.8-8.3) g/dL Albumin (3.0-4.8) g/dL Globulin gm/dL Albumin/Globulin Ratio (1.1-1.8) TSH 3rd Generation (0.46-4.68) mIU/mL Urine Color (YELLOW) Urine Appearance (CLEAR) Urine pH (4.7-8.0) Ur Specific [place] (1.005-1.035) Urine Protein (<30 mg/dL) mg/dL Urine Glucose (UA) (NEGATIVE) mg/dL Urine Ketones (NEGATIVE) mg/dL Urine Blood (NEGATIVE) Urine Nitrate (NEGATIVE) Urine Bilirubin (NEGATIVE) Urine Urobilinogen (<1 E.U./dL) E.U./dL Ur Leukocyte Esterase (NEGATIVE) Johnie/uL Urine RBC (0-2) /hpf Urine WBC (0-6) /hpf Ur Epithelial Cells (0-5) /hpf Urine Bacteria (NONE) /hpf Urine Opiates Screen (NEGATIVE) Urine Methadone Screen (NEGATIVE) Ur Barbiturates Screen (NEGATIVE) Ur Phencyclidine Scrn (NEGATIVE) Ur Amphetamines Screen (NEGATIVE) U Benzodiazepines Scrn (NEGATIVE) U Oth Cocaine Metabols (NEGATIVE) U Cannabinoids Screen (NEGATIVE) Alcohol, Quantitative (0-10) mg/dL Blood Type Blood Type Confirm Antibody Screen Crossmatch BBK History Checked 04/03/18 04/03/18 04/03/18 Range/Units 22:58 18:50 18:15 WBC 9.9 (4.5-11.0) 10^3/uL RBC 1.38 L (3.5-6.1) 10^6/uL Hgb 3.4 L* (12.0-16.0) g/dL Hct 11.1 L* (36.0-48.0) % MCV 80.4 D (80.0-105.0) fl MCH 24.6 L (25.0-35.0) pg MCHC 30.6 L (31.0-37.0) g/dl RDW 26.0 H (11.5-14.5) % Plt Count 164 (120.0-450.0) 10^3/uL MPV 8.4 (7.0-11.0) fl Gran % (50.0-68.0) % Lymph % (Auto) (22.0-35.0) % [place] % (Auto) (1.0-6.0) % Eos % (Auto) (1.5-5.0) % Baso % (Auto) (0.0-3.0) % Gran # (1.4-6.5) Lymph # (Auto) (1.2-3.4) [place] # (Auto) (0.1-0.6) Eos # (Auto) (0.0-0.7) Baso # (Auto) (0.0-2.0) K/mm3 Retic Count 5.63 H (0.5-1.5) % PT (9.4-12.5) SECONDS INR APTT (25.1-36.5) Seconds pCO2 (35-45) mm/Hg pO2 (80-100) mm/Hg HCO3 (21-28) mmol/L ABG pH (7.35-7.45) ABG Total CO2 (22-28) mmol.L ABG O2 Saturation (95-98) % ABG O2 Content (15-23) ML/dl ABG Base Excess (-2.0-3.0) mmol/L ABG Hemoglobin (11.7-17.4) g/dL ABG Carboxyhemoglobin (0.5-1.5) % POC ABG HHb (Measured) (0-5) % ABG Methemoglobin (0.0-3.0) % ABG O2 Capacity (16-24) mL/dl Hgb O2 Saturation (95.0-98.0) % FiO2 % Sodium (132-148) mmol/L Potassium (3.6-5.0) mmol/L Chloride (98-107) mmol/L Carbon Dioxide (21-33) mmol/L Anion Gap (10-20) BUN (7-21) mg/dL Creatinine (0.7-1.2) mg/dl Est GFR ( Amer) Est GFR (Non-Af Amer) POC Glucose (mg/dL) (65-110) mg/dL Random Glucose (70-110) mg/dL Calcium (8.4-10.5) mg/dL Phosphorus (2.5-4.5) mg/dL Magnesium (1.7-2.2) mg/dL Iron (45-180) ug/dL TIBC (265-497) ug/dL % Saturation (20-55) % Total Bilirubin (0.2-1.3) mg/dL AST (14-36) U/L ALT (7-56) U/L Alkaline Phosphatase (38-126) U/L Ammonia (9-33) umol/L Lactate Dehydrogenase (333-699) U/L Total Creatine Kinase (35-230) U/L CK-MB (CK-2) (0.0-3.6) ng/mL CK-MB (CK-2) % (2.5-3.0) % Troponin I ng/mL NT-Pro-B Natriuret Pep (0-450) pg/mL Total Protein (5.8-8.3) g/dL Albumin (3.0-4.8) g/dL Globulin gm/dL Albumin/Globulin Ratio (1.1-1.8) TSH 3rd Generation (0.46-4.68) mIU/mL Urine Color (YELLOW) Urine Appearance (CLEAR) Urine pH (4.7-8.0) Ur Specific [place] (1.005-1.035) Urine Protein (<30 mg/dL) mg/dL Urine Glucose (UA) (NEGATIVE) mg/dL Urine Ketones (NEGATIVE) mg/dL Urine Blood (NEGATIVE) Urine Nitrate (NEGATIVE) Urine Bilirubin (NEGATIVE) Urine Urobilinogen (<1 E.U./dL) E.U./dL Ur Leukocyte Esterase (NEGATIVE) Johnie/uL Urine RBC (0-2) /hpf Urine WBC (0-6) /hpf Ur Epithelial Cells (0-5) /hpf Urine Bacteria (NONE) /hpf Urine Opiates Screen (NEGATIVE) Urine Methadone Screen (NEGATIVE) Ur Barbiturates Screen (NEGATIVE) Ur Phencyclidine Scrn (NEGATIVE) Ur Amphetamines Screen (NEGATIVE) U Benzodiazepines Scrn (NEGATIVE) U Oth Cocaine Metabols (NEGATIVE) U Cannabinoids Screen (NEGATIVE) Alcohol, Quantitative (0-10) mg/dL Blood Type Blood Type Confirm B NEGATIVE Antibody Screen Crossmatch BBK History Checked 04/03/18 04/03/18 04/03/18 Range/Units 18:13 17:44 17:41 WBC (4.5-11.0) 10^3/uL RBC (3.5-6.1) 10^6/uL Hgb (12.0-16.0) g/dL Hct (36.0-48.0) % MCV (80.0-105.0) fl MCH (25.0-35.0) pg MCHC (31.0-37.0) g/dl RDW (11.5-14.5) % Plt Count (120.0-450.0) 10^3/uL MPV (7.0-11.0) fl Gran % (50.0-68.0) % Lymph % (Auto) (22.0-35.0) % [place] % (Auto) (1.0-6.0) % Eos % (Auto) (1.5-5.0) % Baso % (Auto) (0.0-3.0) % Gran # (1.4-6.5) Lymph # (Auto) (1.2-3.4) [place] # (Auto) (0.1-0.6) Eos # (Auto) (0.0-0.7) Baso # (Auto) (0.0-2.0) K/mm3 Retic Count (0.5-1.5) % PT (9.4-12.5) SECONDS INR APTT (25.1-36.5) Seconds pCO2 22 L (35-45) mm/Hg pO2 114.0 H (80-100) mm/Hg HCO3 9.9 L* (21-28) mmol/L ABG pH 7.26 L (7.35-7.45) ABG Total CO2 10.6 L (22-28) mmol.L ABG O2 Saturation (95-98) % ABG O2 Content (15-23) ML/dl ABG Base Excess -15.1 L (-2.0-3.0) mmol/L ABG Hemoglobin < 3.0 L (11.7-17.4) g/dL ABG Carboxyhemoglobin (0.5-1.5) % POC ABG HHb (Measured) (0-5) % ABG Methemoglobin (0.0-3.0) % ABG O2 Capacity (16-24) mL/dl Hgb O2 Saturation (95.0-98.0) % FiO2 21.0 % Sodium (132-148) mmol/L Potassium (3.6-5.0) mmol/L Chloride (98-107) mmol/L Carbon Dioxide (21-33) mmol/L Anion Gap (10-20) BUN (7-21) mg/dL Creatinine (0.7-1.2) mg/dl Est GFR ( Amer) Est GFR (Non-Af Amer) POC Glucose (mg/dL) (65-110) mg/dL Random Glucose (70-110) mg/dL Calcium (8.4-10.5) mg/dL Phosphorus (2.5-4.5) mg/dL Magnesium (1.7-2.2) mg/dL Iron 19 L (45-180) ug/dL TIBC 338 (265-497) ug/dL % Saturation 6 L (20-55) % Total Bilirubin (0.2-1.3) mg/dL AST (14-36) U/L ALT (7-56) U/L Alkaline Phosphatase (38-126) U/L Ammonia (9-33) umol/L Lactate Dehydrogenase (333-699) U/L Total Creatine Kinase (35-230) U/L CK-MB (CK-2) (0.0-3.6) ng/mL CK-MB (CK-2) % (2.5-3.0) % Troponin I ng/mL NT-Pro-B Natriuret Pep (0-450) pg/mL Total Protein (5.8-8.3) g/dL Albumin (3.0-4.8) g/dL Globulin gm/dL Albumin/Globulin Ratio (1.1-1.8) TSH 3rd Generation (0.46-4.68) mIU/mL Urine Color (YELLOW) Urine Appearance (CLEAR) Urine pH (4.7-8.0) Ur Specific [place] (1.005-1.035) Urine Protein (<30 mg/dL) mg/dL Urine Glucose (UA) (NEGATIVE) mg/dL Urine Ketones (NEGATIVE) mg/dL Urine Blood (NEGATIVE) Urine Nitrate (NEGATIVE) Urine Bilirubin (NEGATIVE) Urine Urobilinogen (<1 E.U./dL) E.U./dL Ur Leukocyte Esterase (NEGATIVE) Johnie/uL Urine RBC (0-2) /hpf Urine WBC (0-6) /hpf Ur Epithelial Cells (0-5) /hpf Urine Bacteria (NONE) /hpf Urine Opiates Screen (NEGATIVE) Urine Methadone Screen (NEGATIVE) Ur Barbiturates Screen (NEGATIVE) Ur Phencyclidine Scrn (NEGATIVE) Ur Amphetamines Screen (NEGATIVE) U Benzodiazepines Scrn (NEGATIVE) U Oth Cocaine Metabols (NEGATIVE) U Cannabinoids Screen (NEGATIVE) Alcohol, Quantitative (0-10) mg/dL Blood Type B NEGATIVE Blood Type Confirm Antibody Screen Negative Crossmatch See Detail BBK History Checked No verified bt 04/03/18 04/03/18 04/03/18 Range/Units 17:39 17:39 16:45 WBC 10.0 (4.5-11.0) 10^3/uL RBC 1.08 L (3.5-6.1) 10^6/uL Hgb 2.3 L* (12.0-16.0) g/dL Hct 8.1 L* (36.0-48.0) % MCV 75.0 L (80.0-105.0) fl MCH 21.3 L (25.0-35.0) pg MCHC 28.4 L (31.0-37.0) g/dl RDW 24.1 H (11.5-14.5) % Plt Count 164 (120.0-450.0) 10^3/uL MPV 8.9 (7.0-11.0) fl Gran % 79.5 H (50.0-68.0) % Lymph % (Auto) 10.4 L (22.0-35.0) % [place] % (Auto) 7.4 H (1.0-6.0) % Eos % (Auto) 2.5 (1.5-5.0) % Baso % (Auto) 0.2 (0.0-3.0) % Gran # 7.92 H (1.4-6.5) Lymph # (Auto) 1.0 L (1.2-3.4) [place] # (Auto) 0.7 H (0.1-0.6) Eos # (Auto) 0.3 (0.0-0.7) Baso # (Auto) 0.02 (0.0-2.0) K/mm3 Retic Count (0.5-1.5) % PT (9.4-12.5) SECONDS INR APTT (25.1-36.5) Seconds pCO2 (35-45) mm/Hg pO2 (80-100) mm/Hg HCO3 (21-28) mmol/L ABG pH (7.35-7.45) ABG Total CO2 (22-28) mmol.L ABG O2 Saturation (95-98) % ABG O2 Content (15-23) ML/dl ABG Base Excess (-2.0-3.0) mmol/L ABG Hemoglobin (11.7-17.4) g/dL ABG Carboxyhemoglobin (0.5-1.5) % POC ABG HHb (Measured) (0-5) % ABG Methemoglobin (0.0-3.0) % ABG O2 Capacity (16-24) mL/dl Hgb O2 Saturation (95.0-98.0) % FiO2 % Sodium (132-148) mmol/L Potassium (3.6-5.0) mmol/L Chloride (98-107) mmol/L Carbon Dioxide (21-33) mmol/L Anion Gap (10-20) BUN (7-21) mg/dL Creatinine (0.7-1.2) mg/dl Est GFR ( Amer) Est GFR (Non-Af Amer) POC Glucose (mg/dL) (65-110) mg/dL Random Glucose (70-110) mg/dL Calcium (8.4-10.5) mg/dL Phosphorus (2.5-4.5) mg/dL Magnesium (1.7-2.2) mg/dL Iron (45-180) ug/dL TIBC (265-497) ug/dL % Saturation (20-55) % Total Bilirubin (0.2-1.3) mg/dL AST (14-36) U/L ALT (7-56) U/L Alkaline Phosphatase (38-126) U/L Ammonia (9-33) umol/L Lactate Dehydrogenase (333-699) U/L Total Creatine Kinase (35-230) U/L CK-MB (CK-2) (0.0-3.6) ng/mL CK-MB (CK-2) % (2.5-3.0) % Troponin I ng/mL NT-Pro-B Natriuret Pep (0-450) pg/mL Total Protein (5.8-8.3) g/dL Albumin (3.0-4.8) g/dL Globulin gm/dL Albumin/Globulin Ratio (1.1-1.8) TSH 3rd Generation (0.46-4.68) mIU/mL Urine Color Yellow (YELLOW) Urine Appearance Slight-cloudy (CLEAR) Urine pH 5.0 (4.7-8.0) Ur Specific [place] >= 1.030 (1.005-1.035) Urine Protein Trace H (<30 mg/dL) mg/dL Urine Glucose (UA) Negative (NEGATIVE) mg/dL Urine Ketones Trace H (NEGATIVE) mg/dL Urine Blood Moderate H (NEGATIVE) Urine Nitrate Negative (NEGATIVE) Urine Bilirubin Small H (NEGATIVE) Urine Urobilinogen 0.2 (<1 E.U./dL) E.U./dL Ur Leukocyte Esterase Small H (NEGATIVE) Johnie/uL Urine RBC 5 - 10 H (0-2) /hpf Urine WBC 1 - 3 (0-6) /hpf Ur Epithelial Cells 3 - 4 (0-5) /hpf Urine Bacteria Large (NONE) /hpf Urine Opiates Screen Negative (NEGATIVE) Urine Methadone Screen Negative (NEGATIVE) Ur Barbiturates Screen Negative (NEGATIVE) Ur Phencyclidine Scrn Negative (NEGATIVE) Ur Amphetamines Screen Negative (NEGATIVE) U Benzodiazepines Scrn Negative (NEGATIVE) U Oth Cocaine Metabols Negative (NEGATIVE) U Cannabinoids Screen Negative (NEGATIVE) Alcohol, Quantitative (0-10) mg/dL Blood Type Blood Type Confirm Antibody Screen Crossmatch BBK History Checked 04/03/18 04/03/18 04/03/18 Range/Units 15:44 15:44 15:44 WBC (4.5-11.0) 10^3/uL RBC (3.5-6.1) 10^6/uL Hgb (12.0-16.0) g/dL Hct (36.0-48.0) % MCV (80.0-105.0) fl MCH (25.0-35.0) pg MCHC (31.0-37.0) g/dl RDW (11.5-14.5) % Plt Count (120.0-450.0) 10^3/uL MPV (7.0-11.0) fl Gran % (50.0-68.0) % Lymph % (Auto) (22.0-35.0) % [place] % (Auto) (1.0-6.0) % Eos % (Auto) (1.5-5.0) % Baso % (Auto) (0.0-3.0) % Gran # (1.4-6.5) Lymph # (Auto) (1.2-3.4) [place] # (Auto) (0.1-0.6) Eos # (Auto) (0.0-0.7) Baso # (Auto) (0.0-2.0) K/mm3 Retic Count (0.5-1.5) % PT (9.4-12.5) SECONDS INR APTT (25.1-36.5) Seconds pCO2 (35-45) mm/Hg pO2 (80-100) mm/Hg HCO3 (21-28) mmol/L ABG pH (7.35-7.45) ABG Total CO2 (22-28) mmol.L ABG O2 Saturation (95-98) % ABG O2 Content (15-23) ML/dl ABG Base Excess (-2.0-3.0) mmol/L ABG Hemoglobin (11.7-17.4) g/dL ABG Carboxyhemoglobin (0.5-1.5) % POC ABG HHb (Measured) (0-5) % ABG Methemoglobin (0.0-3.0) % ABG O2 Capacity (16-24) mL/dl Hgb O2 Saturation (95.0-98.0) % FiO2 % Sodium 133 (132-148) mmol/L Potassium 5.0 (3.6-5.0) mmol/L Chloride 107 (98-107) mmol/L Carbon Dioxide 11 L (21-33) mmol/L Anion Gap 20 (10-20) BUN 102 H (7-21) mg/dL Creatinine 7.4 H* (0.7-1.2) mg/dl Est GFR ( Amer) 7 Est GFR (Non-Af Amer) 6 POC Glucose (mg/dL) (65-110) mg/dL Random Glucose 105 (70-110) mg/dL Calcium 7.9 L (8.4-10.5) mg/dL Phosphorus 9.7 H (2.5-4.5) mg/dL Magnesium 3.2 H (1.7-2.2) mg/dL Iron (45-180) ug/dL TIBC (265-497) ug/dL % Saturation (20-55) % Total Bilirubin 1.9 H (0.2-1.3) mg/dL AST 50 H (14-36) U/L ALT 31 (7-56) U/L Alkaline Phosphatase 166 H (38-126) U/L Ammonia 39 H (9-33) umol/L Lactate Dehydrogenase 518 (333-699) U/L Total Creatine Kinase 291 H (35-230) U/L CK-MB (CK-2) 5.0 H (0.0-3.6) ng/mL CK-MB (CK-2) % 1.7 L (2.5-3.0) % Troponin I 0.11 ng/mL NT-Pro-B Natriuret Pep 78509 H (0-450) pg/mL Total Protein 6.3 (5.8-8.3) g/dL Albumin 2.6 L (3.0-4.8) g/dL Globulin 3.7 gm/dL Albumin/Globulin Ratio 0.7 L (1.1-1.8) TSH 3rd Generation 6.37 H (0.46-4.68) mIU/mL Urine Color (YELLOW) Urine Appearance (CLEAR) Urine pH (4.7-8.0) Ur Specific [place] (1.005-1.035) Urine Protein (<30 mg/dL) mg/dL Urine Glucose (UA) (NEGATIVE) mg/dL Urine Ketones (NEGATIVE) mg/dL Urine Blood (NEGATIVE) Urine Nitrate (NEGATIVE) Urine Bilirubin (NEGATIVE) Urine Urobilinogen (<1 E.U./dL) E.U./dL Ur Leukocyte Esterase (NEGATIVE) Johnie/uL Urine RBC (0-2) /hpf Urine WBC (0-6) /hpf Ur Epithelial Cells (0-5) /hpf Urine Bacteria (NONE) /hpf Urine Opiates Screen (NEGATIVE) Urine Methadone Screen (NEGATIVE) Ur Barbiturates Screen (NEGATIVE) Ur Phencyclidine Scrn (NEGATIVE) Ur Amphetamines Screen (NEGATIVE) U Benzodiazepines Scrn (NEGATIVE) U Oth Cocaine Metabols (NEGATIVE) U Cannabinoids Screen (NEGATIVE) Alcohol, Quantitative < 10 (0-10) mg/dL Blood Type Blood Type Confirm Antibody Screen Crossmatch BBK History Checked 04/03/18 Range/Units 15:44 WBC (4.5-11.0) 10^3/uL RBC (3.5-6.1) 10^6/uL Hgb (12.0-16.0) g/dL Hct (36.0-48.0) % MCV (80.0-105.0) fl MCH (25.0-35.0) pg MCHC (31.0-37.0) g/dl RDW (11.5-14.5) % Plt Count (120.0-450.0) 10^3/uL MPV (7.0-11.0) fl Gran % (50.0-68.0) % Lymph % (Auto) (22.0-35.0) % [place] % (Auto) (1.0-6.0) % Eos % (Auto) (1.5-5.0) % Baso % (Auto) (0.0-3.0) % Gran # (1.4-6.5) Lymph # (Auto) (1.2-3.4) [place] # (Auto) (0.1-0.6) Eos # (Auto) (0.0-0.7) Baso # (Auto) (0.0-2.0) K/mm3 Retic Count (0.5-1.5) % PT 13.2 H (9.4-12.5) SECONDS INR 1.15 APTT 30.7 (25.1-36.5) Seconds pCO2 (35-45) mm/Hg pO2 (80-100) mm/Hg HCO3 (21-28) mmol/L ABG pH (7.35-7.45) ABG Total CO2 (22-28) mmol.L ABG O2 Saturation (95-98) % ABG O2 Content (15-23) ML/dl ABG Base Excess (-2.0-3.0) mmol/L ABG Hemoglobin (11.7-17.4) g/dL ABG Carboxyhemoglobin (0.5-1.5) % POC ABG HHb (Measured) (0-5) % ABG Methemoglobin (0.0-3.0) % ABG O2 Capacity (16-24) mL/dl Hgb O2 Saturation (95.0-98.0) % FiO2 % Sodium (132-148) mmol/L Potassium (3.6-5.0) mmol/L Chloride (98-107) mmol/L Carbon Dioxide (21-33) mmol/L Anion Gap (10-20) BUN (7-21) mg/dL Creatinine (0.7-1.2) mg/dl Est GFR ( Amer) Est GFR (Non-Af Amer) POC Glucose (mg/dL) (65-110) mg/dL Random Glucose (70-110) mg/dL Calcium (8.4-10.5) mg/dL Phosphorus (2.5-4.5) mg/dL Magnesium (1.7-2.2) mg/dL Iron (45-180) ug/dL TIBC (265-497) ug/dL % Saturation (20-55) % Total Bilirubin (0.2-1.3) mg/dL AST (14-36) U/L ALT (7-56) U/L Alkaline Phosphatase (38-126) U/L Ammonia (9-33) umol/L Lactate Dehydrogenase (333-699) U/L Total Creatine Kinase (35-230) U/L CK-MB (CK-2) (0.0-3.6) ng/mL CK-MB (CK-2) % (2.5-3.0) % Troponin I ng/mL NT-Pro-B Natriuret Pep (0-450) pg/mL Total Protein (5.8-8.3) g/dL Albumin (3.0-4.8) g/dL Globulin gm/dL Albumin/Globulin Ratio (1.1-1.8) TSH 3rd Generation (0.46-4.68) mIU/mL Urine Color (YELLOW) Urine Appearance (CLEAR) Urine pH (4.7-8.0) Ur Specific [place] (1.005-1.035) Urine Protein (<30 mg/dL) mg/dL Urine Glucose (UA) (NEGATIVE) mg/dL Urine Ketones (NEGATIVE) mg/dL Urine Blood (NEGATIVE) Urine Nitrate (NEGATIVE) Urine Bilirubin (NEGATIVE) Urine Urobilinogen (<1 E.U./dL) E.U./dL Ur Leukocyte Esterase (NEGATIVE) Johnie/uL Urine RBC (0-2) /hpf Urine WBC (0-6) /hpf Ur Epithelial Cells (0-5) /hpf Urine Bacteria (NONE) /hpf Urine Opiates Screen (NEGATIVE) Urine Methadone Screen (NEGATIVE) Ur Barbiturates Screen (NEGATIVE) Ur Phencyclidine Scrn (NEGATIVE) Ur Amphetamines Screen (NEGATIVE) U Benzodiazepines Scrn (NEGATIVE) U Oth Cocaine Metabols (NEGATIVE) U Cannabinoids Screen (NEGATIVE) Alcohol, Quantitative (0-10) mg/dL Blood Type Blood Type Confirm Antibody Screen Crossmatch BBK History Checked Laboratory Results - last 24 hr 04/03/18 04/03/18 04/03/18 15:44 15:44 15:44 WBC RBC Hgb Hct MCV MCH MCHC RDW Plt Count MPV Gran % Lymph % (Auto) [place] % (Auto) Eos % (Auto) Baso % (Auto) Gran # Lymph # (Auto) [place] # (Auto) Eos # (Auto) Baso # (Auto) Retic Count PT 13.2 H INR 1.15 APTT 30.7 pCO2 pO2 HCO3 ABG pH ABG Total CO2 ABG O2 Saturation ABG O2 Content ABG Base Excess ABG Hemoglobin ABG Carboxyhemoglobin POC ABG HHb (Measured) ABG Methemoglobin ABG O2 Capacity Hgb O2 Saturation FiO2 Sodium 133 Potassium 5.0 Chloride 107 Carbon Dioxide 11 L Anion Gap 20 BUN 102 H Creatinine 7.4 H* Est GFR ( Amer) 7 Est GFR (Non-Af Amer) 6 POC Glucose (mg/dL) Random Glucose 105 Calcium 7.9 L Phosphorus 9.7 H Magnesium 3.2 H Iron TIBC % Saturation Total Bilirubin 1.9 H AST 50 H ALT 31 Alkaline Phosphatase 166 H Ammonia 39 H Lactate Dehydrogenase 518 Total Creatine Kinase 291 H CK-MB (CK-2) 5.0 H CK-MB (CK-2) % 1.7 L Troponin I 0.11 NT-Pro-B Natriuret Pep 53666 H Total Protein 6.3 Albumin 2.6 L Globulin 3.7 Albumin/Globulin Ratio 0.7 L TSH 3rd Generation Urine Color Urine Appearance Urine pH Ur Specific [place] Urine Protein Urine Glucose (UA) Urine Ketones Urine Blood Urine Nitrate Urine Bilirubin Urine Urobilinogen Ur Leukocyte Esterase Urine RBC Urine WBC Ur Epithelial Cells Urine Bacteria Urine Opiates Screen Urine Methadone Screen Ur Barbiturates Screen Ur Phencyclidine Scrn Ur Amphetamines Screen U Benzodiazepines Scrn U Oth Cocaine Metabols U Cannabinoids Screen Alcohol, Quantitative Blood Type Blood Type Confirm Antibody Screen Crossmatch BBK History Checked 04/03/18 04/03/18 04/03/18 15:44 16:45 17:39 WBC 10.0 RBC 1.08 L Hgb 2.3 L* Hct 8.1 L* MCV 75.0 L MCH 21.3 L MCHC 28.4 L RDW 24.1 H Plt Count 164 MPV 8.9 Gran % 79.5 H Lymph % (Auto) 10.4 L [place] % (Auto) 7.4 H Eos % (Auto) 2.5 Baso % (Auto) 0.2 Gran # 7.92 H Lymph # (Auto) 1.0 L [place] # (Auto) 0.7 H Eos # (Auto) 0.3 Baso # (Auto) 0.02 Retic Count PT INR APTT pCO2 pO2 HCO3 ABG pH ABG Total CO2 ABG O2 Saturation ABG O2 Content ABG Base Excess ABG Hemoglobin ABG Carboxyhemoglobin POC ABG HHb (Measured) ABG Methemoglobin ABG O2 Capacity Hgb O2 Saturation FiO2 Sodium Potassium Chloride Carbon Dioxide Anion Gap BUN Creatinine Est GFR ( Amer) Est GFR (Non-Af Amer) POC Glucose (mg/dL) Random Glucose Calcium Phosphorus Magnesium Iron TIBC % Saturation Total Bilirubin AST ALT Alkaline Phosphatase Ammonia Lactate Dehydrogenase Total Creatine Kinase CK-MB (CK-2) CK-MB (CK-2) % Troponin I NT-Pro-B Natriuret Pep Total Protein Albumin Globulin Albumin/Globulin Ratio TSH 3rd Generation 6.37 H Urine Color Yellow Urine Appearance Slight-cloudy Urine pH 5.0 Ur Specific [place] >= 1.030 Urine Protein Trace H Urine Glucose (UA) Negative Urine Ketones Trace H Urine Blood Moderate H Urine Nitrate Negative Urine Bilirubin Small H Urine Urobilinogen 0.2 Ur Leukocyte Esterase Small H Urine RBC 5 - 10 H Urine WBC 1 - 3 Ur Epithelial Cells 3 - 4 Urine Bacteria Large Urine Opiates Screen Urine Methadone Screen Ur Barbiturates Screen Ur Phencyclidine Scrn Ur Amphetamines Screen U Benzodiazepines Scrn U Oth Cocaine Metabols U Cannabinoids Screen Alcohol, Quantitative < 10 Blood Type Blood Type Confirm Antibody Screen Crossmatch BBK History Checked 04/03/18 04/03/18 04/03/18 17:39 17:41 17:44 WBC RBC Hgb Hct MCV MCH MCHC RDW Plt Count MPV Gran % Lymph % (Auto) [place] % (Auto) Eos % (Auto) Baso % (Auto) Gran # Lymph # (Auto) [place] # (Auto) Eos # (Auto) Baso # (Auto) Retic Count PT INR APTT pCO2 22 L pO2 114.0 H HCO3 9.9 L* ABG pH 7.26 L ABG Total CO2 10.6 L ABG O2 Saturation ABG O2 Content ABG Base Excess -15.1 L ABG Hemoglobin < 3.0 L ABG Carboxyhemoglobin POC ABG HHb (Measured) ABG Methemoglobin ABG O2 Capacity Hgb O2 Saturation FiO2 21.0 Sodium Potassium Chloride Carbon Dioxide Anion Gap BUN Creatinine Est GFR ( Amer) Est GFR (Non-Af Amer) POC Glucose (mg/dL) Random Glucose Calcium Phosphorus Magnesium Iron TIBC % Saturation Total Bilirubin AST ALT Alkaline Phosphatase Ammonia Lactate Dehydrogenase Total Creatine Kinase CK-MB (CK-2) CK-MB (CK-2) % Troponin I NT-Pro-B Natriuret Pep Total Protein Albumin Globulin Albumin/Globulin Ratio TSH 3rd Generation Urine Color Urine Appearance Urine pH Ur Specific [place] Urine Protein Urine Glucose (UA) Urine Ketones Urine Blood Urine Nitrate Urine Bilirubin Urine Urobilinogen Ur Leukocyte Esterase Urine RBC Urine WBC Ur Epithelial Cells Urine Bacteria Urine Opiates Screen Negative Urine Methadone Screen Negative Ur Barbiturates Screen Negative Ur Phencyclidine Scrn Negative Ur Amphetamines Screen Negative U Benzodiazepines Scrn Negative U Oth Cocaine Metabols Negative U Cannabinoids Screen Negative Alcohol, Quantitative Blood Type B NEGATIVE Blood Type Confirm Antibody Screen Negative Crossmatch See Detail BBK History Checked No verified bt 04/03/18 04/03/18 04/03/18 18:13 18:15 18:50 WBC RBC Hgb Hct MCV MCH MCHC RDW Plt Count MPV Gran % Lymph % (Auto) [place] % (Auto) Eos % (Auto) Baso % (Auto) Gran # Lymph # (Auto) [place] # (Auto) Eos # (Auto) Baso # (Auto) Retic Count 5.63 H PT INR APTT pCO2 pO2 HCO3 ABG pH ABG Total CO2 ABG O2 Saturation ABG O2 Content ABG Base Excess ABG Hemoglobin ABG Carboxyhemoglobin POC ABG HHb (Measured) ABG Methemoglobin ABG O2 Capacity Hgb O2 Saturation FiO2 Sodium Potassium Chloride Carbon Dioxide Anion Gap BUN Creatinine Est GFR ( Amer) Est GFR (Non-Af Amer) POC Glucose (mg/dL) Random Glucose Calcium Phosphorus Magnesium Iron 19 L TIBC 338 % Saturation 6 L Total Bilirubin AST ALT Alkaline Phosphatase Ammonia Lactate Dehydrogenase Total Creatine Kinase CK-MB (CK-2) CK-MB (CK-2) % Troponin I NT-Pro-B Natriuret Pep Total Protein Albumin Globulin Albumin/Globulin Ratio TSH 3rd Generation Urine Color Urine Appearance Urine pH Ur Specific [place] Urine Protein Urine Glucose (UA) Urine Ketones Urine Blood Urine Nitrate Urine Bilirubin Urine Urobilinogen Ur Leukocyte Esterase Urine RBC Urine WBC Ur Epithelial Cells Urine Bacteria Urine Opiates Screen Urine Methadone Screen Ur Barbiturates Screen Ur Phencyclidine Scrn Ur Amphetamines Screen U Benzodiazepines Scrn U Oth Cocaine Metabols U Cannabinoids Screen Alcohol, Quantitative Blood Type Blood Type Confirm B NEGATIVE Antibody Screen Crossmatch BBK History Checked 04/03/18 04/04/18 04/04/18 22:58 00:40 01:30 WBC 9.9 RBC 1.38 L Hgb 3.4 L* Hct 11.1 L* MCV 80.4 D MCH 24.6 L MCHC 30.6 L RDW 26.0 H Plt Count 164 MPV 8.4 Gran % Lymph % (Auto) [place] % (Auto) Eos % (Auto) Baso % (Auto) Gran # Lymph # (Auto) [place] # (Auto) Eos # (Auto) Baso # (Auto) Retic Count PT INR APTT pCO2 24 L pO2 164.0 H HCO3 10.8 L ABG pH 7.26 L ABG Total CO2 11.5 L ABG O2 Saturation 98.9 H ABG O2 Content 7.2 L ABG Base Excess -15.0 L ABG Hemoglobin 5.0 L ABG Carboxyhemoglobin 2.2 H POC ABG HHb (Measured) 1.1 ABG Methemoglobin 1.2 ABG O2 Capacity 7.3 L Hgb O2 Saturation 95.5 FiO2 32.0 Sodium 131 L Potassium 5.4 H Chloride 106 Carbon Dioxide 13 L Anion Gap 18 BUN 102 H Creatinine 7.0 H Est GFR ( Amer) 7 Est GFR (Non-Af Amer) 6 POC Glucose (mg/dL) Random Glucose 120 H Calcium 7.6 L Phosphorus Magnesium Iron TIBC % Saturation Total Bilirubin AST ALT Alkaline Phosphatase Ammonia Lactate Dehydrogenase Total Creatine Kinase CK-MB (CK-2) CK-MB (CK-2) % Troponin I NT-Pro-B Natriuret Pep Total Protein Albumin Globulin Albumin/Globulin Ratio TSH 3rd Generation Urine Color Urine Appearance Urine pH Ur Specific [place] Urine Protein Urine Glucose (UA) Urine Ketones Urine Blood Urine Nitrate Urine Bilirubin Urine Urobilinogen Ur Leukocyte Esterase Urine RBC Urine WBC Ur Epithelial Cells Urine Bacteria Urine Opiates Screen Urine Methadone Screen Ur Barbiturates Screen Ur Phencyclidine Scrn Ur Amphetamines Screen U Benzodiazepines Scrn U Oth Cocaine Metabols U Cannabinoids Screen Alcohol, Quantitative Blood Type Blood Type Confirm Antibody Screen Crossmatch BBK History Checked 04/04/18 04/04/18 04/04/18 02:17 04:14 04:14 WBC 8.8 RBC 2.06 L Hgb 5.4 L* D Hct 16.9 L* MCV 82.0 MCH 26.2 MCHC 32.0 RDW 21.1 H Plt Count 138 MPV 8.6 Gran % 75.3 H Lymph % (Auto) 11.4 L [place] % (Auto) 8.9 H Eos % (Auto) 4.2 Baso % (Auto) 0.2 Gran # 6.61 H Lymph # (Auto) 1.0 L [place] # (Auto) 0.8 H Eos # (Auto) 0.4 Baso # (Auto) 0.02 Retic Count PT INR APTT pCO2 pO2 HCO3 ABG pH ABG Total CO2 ABG O2 Saturation ABG O2 Content ABG Base Excess ABG Hemoglobin ABG Carboxyhemoglobin POC ABG HHb (Measured) ABG Methemoglobin ABG O2 Capacity Hgb O2 Saturation FiO2 Sodium 132 Potassium 5.3 H Chloride 106 Carbon Dioxide 13 L Anion Gap 18 BUN 101 H Creatinine 7.1 H Est GFR ( Amer) 7 Est GFR (Non-Af Amer) 6 POC Glucose (mg/dL) 154 H Random Glucose 131 H Calcium 7.8 L Phosphorus 10.1 H Magnesium 3.3 H Iron TIBC % Saturation Total Bilirubin 2.7 H AST 42 H ALT 36 Alkaline Phosphatase 153 H Ammonia Lactate Dehydrogenase Total Creatine Kinase CK-MB (CK-2) CK-MB (CK-2) % Troponin I NT-Pro-B Natriuret Pep Total Protein 6.2 Albumin 2.7 L Globulin 3.5 Albumin/Globulin Ratio 0.8 L TSH 3rd Generation Urine Color Urine Appearance Urine pH Ur Specific [place] Urine Protein Urine Glucose (UA) Urine Ketones Urine Blood Urine Nitrate Urine Bilirubin Urine Urobilinogen Ur Leukocyte Esterase Urine RBC Urine WBC Ur Epithelial Cells Urine Bacteria Urine Opiates Screen Urine Methadone Screen Ur Barbiturates Screen Ur Phencyclidine Scrn Ur Amphetamines Screen U Benzodiazepines Scrn U Oth Cocaine Metabols U Cannabinoids Screen Alcohol, Quantitative Blood Type Blood Type Confirm Antibody Screen Crossmatch BBK History Checked 04/04/18 04:24 WBC RBC Hgb Hct MCV MCH MCHC RDW Plt Count MPV Gran % Lymph % (Auto) [place] % (Auto) Eos % (Auto) Baso % (Auto) Gran # Lymph # (Auto) [place] # (Auto) Eos # (Auto) Baso # (Auto) Retic Count PT INR APTT pCO2 pO2 HCO3 ABG pH ABG Total CO2 ABG O2 Saturation ABG O2 Content ABG Base Excess ABG Hemoglobin ABG Carboxyhemoglobin POC ABG HHb (Measured) ABG Methemoglobin ABG O2 Capacity Hgb O2 Saturation FiO2 Sodium Potassium Chloride Carbon Dioxide Anion Gap BUN Creatinine Est GFR ( Amer) Est GFR (Non-Af Amer) POC Glucose (mg/dL) 149 H Random Glucose Calcium Phosphorus Magnesium Iron TIBC % Saturation Total Bilirubin AST ALT Alkaline Phosphatase Ammonia Lactate Dehydrogenase Total Creatine Kinase CK-MB (CK-2) CK-MB (CK-2) % Troponin I NT-Pro-B Natriuret Pep Total Protein Albumin Globulin Albumin/Globulin Ratio TSH 3rd Generation Urine Color Urine Appearance Urine pH Ur Specific [place] Urine Protein Urine Glucose (UA) Urine Ketones Urine Blood Urine Nitrate Urine Bilirubin Urine Urobilinogen Ur Leukocyte Esterase Urine RBC Urine WBC Ur Epithelial Cells Urine Bacteria Urine Opiates Screen Urine Methadone Screen Ur Barbiturates Screen Ur Phencyclidine Scrn Ur Amphetamines Screen U Benzodiazepines Scrn U Oth Cocaine Metabols U Cannabinoids Screen Alcohol, Quantitative Blood Type Blood Type Confirm Antibody Screen Crossmatch BBK History Checked Radiology Impressions: Radiology Impressions Chest X-Ray 04/03/18 14:57 IMPRESSION: Mild cardiomegaly. No focal consolidation. EKG/Cardiology Studies: Cardiology / EKG Studies 04/03/18 14:57 ELECTROCARDIOGRAM Stat Comment: Reason For Exam: weak Fingerstick Blood Sugar Results: 149 Review of Systems - Review of Systems Review of Systems: 12 point ROS completed and negative except as described in HPI. Critical Care Progress Note - Extremities/Vascular Does the Patient have a Lee Catheter?: Yes Does the Patient need a Lee Catheter?: Yes - Nutrition Nutrition: Nutrition Category Date Time Status NPO Diet [DIET] Diets 04/03/18 Dinner Ordered Assessment/Plan - Assessment and Plan (Free Text) Assessment: Patient is a 52 yo F with PMHx of Liver failure, morbid obesity, depression, past etoh abuse who presents with lethargy, fatigue, anemia, and acute kidney injury. Patient is currently under ICU management for evaluation and treatment of aforementioned abnormalities. Plan: Neuro - AAOx3 - Head CT unremarkable - Continue to monitor for signs of confusion, Neurochecks Respiratory - Duonebs PRN and Scheduled - Supplemental O2 - Keep SaO2 >90%, frequent lung checks ID - UA shows small leuk esterase, moderate blood, large amount of urine bacteria - CXR on admission 04/03 shows mild cardiomegaly - Repeat CXR 04/04 unchanged from previous - Afebrile, no leukocytosis - Panculture - F/u Procal Cardiovascular - EKG on admission NSR @ 77 bpm - Elevated BNP [id number] - Echo ordered Heme - F/U Extremity U/S 04/03 - Microcytic, hypochromic anemia - Iron studies consistent with iron deficiency, likely 2/2 GI bleed - CBC q6h - Currently Hgb 5.4 s/p 5 PRBC and 2 FFP. Repeat CBC ordered after 6th unit PRBC. 2 PRBCs pending. GI - Protonix gtt - Octreotide gtt - NPO, accuchecks q6h - Noncontrast Abd/pelvis CT shows ascites, anasarca, bilateral small pleural effusions, and upper abdominal retroperitoneal adenopathy, cardiomegaly. Limited by body habitus. - GI consulted for ? GI bleed- Dr. Melo - recommendations appreciated Nephro - Cr 7.4, baseline unknown. 7.1 this AM - Urine electrolytes to evaluate FENa - Strict I's and O's, Lee in place - Repeat BMP K 5.4, insulin 10 units and D50 given, 5.3 on repeat - hyperphosphaetemia, hypermagnesemia - UDS neg - Nephrology consulted - Dr. Salmeron - recommendations appreciated regarding ? HD in setting of renal failure - F/U Renal U/S (04/04) - Metabolic Acidosis pH 7.2, HCO3 10.8, pCO2 24 - D5W with bicarb gtt Psych - Psych consulted for depression- Dr. Maradiaga- recommendations appreciated GI/DVT PPx - Protonix gtt - SCDs Patient seen, case reviewed and plan approved by Dr. Gallegos. Charbel Perdue, PGY-1 <Handy Gallegos - Last Filed: 04/04/18 13:14> CCU Objective - Vital Signs / Intake & Output Vital Signs (Last 4 hours): Vital Signs Temp Pulse Resp BP 04/04/18 11:45 71 15 125/48 L 04/04/18 11:42 70 04/04/18 11:30 71 16 125/50 L 04/04/18 11:16 97.5 F L 04/04/18 11:15 71 14 124/53 L 04/04/18 11:00 71 16 129/59 L 04/04/18 10:56 71 18 128/56 L 04/04/18 10:45 71 23 130/60 04/04/18 10:32 74 18 132/64 04/04/18 10:30 70 19 130/59 L 04/04/18 10:15 71 24 129/57 L 04/04/18 10:14 74 26 H 04/04/18 10:00 76 23 125/61 04/04/18 09:45 72 27 H 127/59 L 04/04/18 09:41 77 20 126/45 L 04/04/18 09:30 72 19 123/53 L 04/04/18 09:20 72 19 120/48 L Intake and Output (Last 8hrs): Intake & Output 04/03/18 04/04/18 04/04/18 22:59 06:59 14:59 Intake Total 301 3540 Output Total 160 Balance 301 3380 Weight 365 lb 12.8 oz 365 lb 12.8 oz 380 lb 6.4 oz Intake: IV 1500 Left Antecubital 240 Left Hand 60 Right Antecubital 1200 Oral 200 Blood Product 281 1840 Apheresis Rbc Cp2d As3 Lr 281 1st Unit [id number] Other 20 Apheresis Rbc Cp2d As3 Lr 20 1st Unit [id number] Output: Urine 160 2-way Urethral 160 Other: Voiding Method Indwelling Catheter # Bowel Movements 0 - Medications Active Medications: Active Medications Generic Name Dose Route Start Last Admin Trade Name Freq PRN Reason Stop Dose Admin Albuterol/Ipratropium 3 ml 04/03/18 20:00 04/04/18 13:09 Duoneb 3 Mg/0.5 Mg (3 Ml) Ud IH 3 ml [id number] MAKAYLA Administration Albuterol/Ipratropium 3 ml 04/03/18 18:05 Duoneb 3 Mg/0.5 Mg (3 Ml) Ud IH Q2H PRN Shortness of Breath Pantoprazole Sodium 40 mg in 100 mls @ 20 mls/hr 04/03/18 18:15 04/04/18 11:00 Protonix 40mg Ivpb IVPB 20 mls/hr .Q5H MAKAYLA Administration Sodium Bicarbonate 150 meq/ 1,150 mls @ 100 mls/hr 04/03/18 18:15 04/04/18 06:52 Dextrose IV 100 mls/hr .[id number] MAKAYLA Administration Octreotide Acetate 1,250 mcg/ 252.5 mls @ 5.05 mls/hr 04/03/18 18:15 04/03/18 19:14 Dextrose IV 25 mcg/hr .Q24H MAKAYLA 5.05 mls/hr Administration Protocol 25 MCG/HR - Patient Studies Lab Studies: Lab Studies 04/04/18 04/04/18 04/04/18 Range/Units 06:30 04:24 04:14 WBC (4.5-11.0) 10^3/uL RBC (3.5-6.1) 10^6/uL Hgb (12.0-16.0) g/dL Hct (36.0-48.0) % MCV (80.0-105.0) fl MCH (25.0-35.0) pg MCHC (31.0-37.0) g/dl RDW (11.5-14.5) % Plt Count (120.0-450.0) 10^3/uL MPV (7.0-11.0) fl Gran % (50.0-68.0) % Lymph % (Auto) (22.0-35.0) % [place] % (Auto) (1.0-6.0) % Eos % (Auto) (1.5-5.0) % Baso % (Auto) (0.0-3.0) % Gran # (1.4-6.5) Lymph # (Auto) (1.2-3.4) [place] # (Auto) (0.1-0.6) Eos # (Auto) (0.0-0.7) Baso # (Auto) (0.0-2.0) K/mm3 Retic Count (0.5-1.5) % Haptoglobin (30.0-200.0) mg/dL PT (9.4-12.5) SECONDS INR APTT (25.1-36.5) Seconds pCO2 (35-45) mm/Hg pO2 (80-100) mm/Hg HCO3 (21-28) mmol/L ABG pH (7.35-7.45) ABG Total CO2 (22-28) mmol.L ABG O2 Saturation (95-98) % ABG O2 Content (15-23) ML/dl ABG Base Excess (-2.0-3.0) mmol/L ABG Hemoglobin (11.7-17.4) g/dL ABG Carboxyhemoglobin (0.5-1.5) % POC ABG HHb (Measured) (0-5) % ABG Methemoglobin (0.0-3.0) % ABG O2 Capacity (16-24) mL/dl Hgb O2 Saturation (95.0-98.0) % FiO2 % Sodium 132 (132-148) mmol/L Potassium 5.3 H (3.6-5.0) mmol/L Chloride 106 (98-107) mmol/L Carbon Dioxide 13 L (21-33) mmol/L Anion Gap 18 (10-20) BUN 101 H (7-21) mg/dL Creatinine 7.1 H (0.7-1.2) mg/dl Est GFR ( Amer) 7 Est GFR (Non-Af Amer) 6 POC Glucose (mg/dL) 149 H (65-110) mg/dL Random Glucose 131 H (70-110) mg/dL Calcium 7.8 L (8.4-10.5) mg/dL Phosphorus 10.1 H (2.5-4.5) mg/dL Magnesium 3.3 H (1.7-2.2) mg/dL Iron (45-180) ug/dL TIBC (265-497) ug/dL % Saturation (20-55) % Ferritin ng/mL Total Bilirubin 2.7 H (0.2-1.3) mg/dL AST 42 H (14-36) U/L ALT 36 (7-56) U/L Alkaline Phosphatase 153 H (38-126) U/L Ammonia (9-33) umol/L Lactate Dehydrogenase (333-699) U/L Total Creatine Kinase (35-230) U/L CK-MB (CK-2) (0.0-3.6) ng/mL CK-MB (CK-2) % (2.5-3.0) % Troponin I ng/mL NT-Pro-B Natriuret Pep (0-450) pg/mL Total Protein 6.2 (5.8-8.3) g/dL Albumin 2.7 L (3.0-4.8) g/dL Globulin 3.5 gm/dL Albumin/Globulin Ratio 0.8 L (1.1-1.8) TSH 3rd Generation (0.46-4.68) mIU/mL Urine Color (YELLOW) Urine Appearance (CLEAR) Urine pH (4.7-8.0) Ur Specific [place] (1.005-1.035) Urine Protein (<30 mg/dL) mg/dL Urine Glucose (UA) (NEGATIVE) mg/dL Urine Ketones (NEGATIVE) mg/dL Urine Blood (NEGATIVE) Urine Nitrate (NEGATIVE) Urine Bilirubin (NEGATIVE) Urine Urobilinogen (<1 E.U./dL) E.U./dL Ur Leukocyte Esterase (NEGATIVE) Johnie/uL Urine RBC (0-2) /hpf Urine WBC (0-6) /hpf Ur Epithelial Cells (0-5) /hpf Urine Bacteria (NONE) /hpf Ur Random Creatinine 280 mg/dL Ur Random Sodium 18 meq/L Ur Random Urea Nitrogn 301 mg/dL Urine Opiates Screen (NEGATIVE) Urine Methadone Screen (NEGATIVE) Ur Barbiturates Screen (NEGATIVE) Ur Phencyclidine Scrn (NEGATIVE) Ur Amphetamines Screen (NEGATIVE) U Benzodiazepines Scrn (NEGATIVE) U Oth Cocaine Metabols (NEGATIVE) U Cannabinoids Screen (NEGATIVE) Alcohol, Quantitative (0-10) mg/dL Blood Type Blood Type Confirm Antibody Screen Crossmatch BBK History Checked 04/04/18 04/04/18 04/04/18 Range/Units 04:14 02:17 01:30 WBC 8.8 (4.5-11.0) 10^3/uL RBC 2.06 L (3.5-6.1) 10^6/uL Hgb 5.4 L* D (12.0-16.0) g/dL Hct 16.9 L* (36.0-48.0) % MCV 82.0 (80.0-105.0) fl MCH 26.2 (25.0-35.0) pg MCHC 32.0 (31.0-37.0) g/dl RDW 21.1 H (11.5-14.5) % Plt Count 138 (120.0-450.0) 10^3/uL MPV 8.6 (7.0-11.0) fl Gran % 75.3 H (50.0-68.0) % Lymph % (Auto) 11.4 L (22.0-35.0) % [place] % (Auto) 8.9 H (1.0-6.0) % Eos % (Auto) 4.2 (1.5-5.0) % Baso % (Auto) 0.2 (0.0-3.0) % Gran # 6.61 H (1.4-6.5) Lymph # (Auto) 1.0 L (1.2-3.4) [place] # (Auto) 0.8 H (0.1-0.6) Eos # (Auto) 0.4 (0.0-0.7) Baso # (Auto) 0.02 (0.0-2.0) K/mm3 Retic Count (0.5-1.5) % Haptoglobin (30.0-200.0) mg/dL PT (9.4-12.5) SECONDS INR APTT (25.1-36.5) Seconds pCO2 24 L (35-45) mm/Hg pO2 164.0 H (80-100) mm/Hg HCO3 10.8 L (21-28) mmol/L ABG pH 7.26 L (7.35-7.45) ABG Total CO2 11.5 L (22-28) mmol.L ABG O2 Saturation 98.9 H (95-98) % ABG O2 Content 7.2 L (15-23) ML/dl ABG Base Excess -15.0 L (-2.0-3.0) mmol/L ABG Hemoglobin 5.0 L (11.7-17.4) g/dL ABG Carboxyhemoglobin 2.2 H (0.5-1.5) % POC ABG HHb (Measured) 1.1 (0-5) % ABG Methemoglobin 1.2 (0.0-3.0) % ABG O2 Capacity 7.3 L (16-24) mL/dl Hgb O2 Saturation 95.5 (95.0-98.0) % FiO2 32.0 % Sodium (132-148) mmol/L Potassium (3.6-5.0) mmol/L Chloride (98-107) mmol/L Carbon Dioxide (21-33) mmol/L Anion Gap (10-20) BUN (7-21) mg/dL Creatinine (0.7-1.2) mg/dl Est GFR ( Amer) Est GFR (Non-Af Amer) POC Glucose (mg/dL) 154 H (65-110) mg/dL Random Glucose (70-110) mg/dL Calcium (8.4-10.5) mg/dL Phosphorus (2.5-4.5) mg/dL Magnesium (1.7-2.2) mg/dL Iron (45-180) ug/dL TIBC (265-497) ug/dL % Saturation (20-55) % Ferritin ng/mL Total Bilirubin (0.2-1.3) mg/dL AST (14-36) U/L ALT (7-56) U/L Alkaline Phosphatase (38-126) U/L Ammonia (9-33) umol/L Lactate Dehydrogenase (333-699) U/L Total Creatine Kinase (35-230) U/L CK-MB (CK-2) (0.0-3.6) ng/mL CK-MB (CK-2) % (2.5-3.0) % Troponin I ng/mL NT-Pro-B Natriuret Pep (0-450) pg/mL Total Protein (5.8-8.3) g/dL Albumin (3.0-4.8) g/dL Globulin gm/dL Albumin/Globulin Ratio (1.1-1.8) TSH 3rd Generation (0.46-4.68) mIU/mL Urine Color (YELLOW) Urine Appearance (CLEAR) Urine pH (4.7-8.0) Ur Specific [place] (1.005-1.035) Urine Protein (<30 mg/dL) mg/dL Urine Glucose (UA) (NEGATIVE) mg/dL Urine Ketones (NEGATIVE) mg/dL Urine Blood (NEGATIVE) Urine Nitrate (NEGATIVE) Urine Bilirubin (NEGATIVE) Urine Urobilinogen (<1 E.U./dL) E.U./dL Ur Leukocyte Esterase (NEGATIVE) Johnie/uL Urine RBC (0-2) /hpf Urine WBC (0-6) /hpf Ur Epithelial Cells (0-5) /hpf Urine Bacteria (NONE) /hpf Ur Random Creatinine mg/dL Ur Random Sodium meq/L Ur Random Urea Nitrogn mg/dL Urine Opiates Screen (NEGATIVE) Urine Methadone Screen (NEGATIVE) Ur Barbiturates Screen (NEGATIVE) Ur Phencyclidine Scrn (NEGATIVE) Ur Amphetamines Screen (NEGATIVE) U Benzodiazepines Scrn (NEGATIVE) U Oth Cocaine Metabols (NEGATIVE) U Cannabinoids Screen (NEGATIVE) Alcohol, Quantitative (0-10) mg/dL Blood Type Blood Type Confirm Antibody Screen Crossmatch BBK History Checked 04/04/18 04/03/18 04/03/18 Range/Units 00:40 22:58 19:00 WBC 9.9 (4.5-11.0) 10^3/uL RBC 1.38 L (3.5-6.1) 10^6/uL Hgb 3.4 L* (12.0-16.0) g/dL Hct 11.1 L* (36.0-48.0) % MCV 80.4 D (80.0-105.0) fl MCH 24.6 L (25.0-35.0) pg MCHC 30.6 L (31.0-37.0) g/dl RDW 26.0 H (11.5-14.5) % Plt Count 164 (120.0-450.0) 10^3/uL MPV 8.4 (7.0-11.0) fl Gran % (50.0-68.0) % Lymph % (Auto) (22.0-35.0) % [place] % (Auto) (1.0-6.0) % Eos % (Auto) (1.5-5.0) % Baso % (Auto) (0.0-3.0) % Gran # (1.4-6.5) Lymph # (Auto) (1.2-3.4) [place] # (Auto) (0.1-0.6) Eos # (Auto) (0.0-0.7) Baso # (Auto) (0.0-2.0) K/mm3 Retic Count (0.5-1.5) % Haptoglobin 63.4 (30.0-200.0) mg/dL PT (9.4-12.5) SECONDS INR APTT (25.1-36.5) Seconds pCO2 (35-45) mm/Hg pO2 (80-100) mm/Hg HCO3 (21-28) mmol/L ABG pH (7.35-7.45) ABG Total CO2 (22-28) mmol.L ABG O2 Saturation (95-98) % ABG O2 Content (15-23) ML/dl ABG Base Excess (-2.0-3.0) mmol/L ABG Hemoglobin (11.7-17.4) g/dL ABG Carboxyhemoglobin (0.5-1.5) % POC ABG HHb (Measured) (0-5) % ABG Methemoglobin (0.0-3.0) % ABG O2 Capacity (16-24) mL/dl Hgb O2 Saturation (95.0-98.0) % FiO2 % Sodium 131 L (132-148) mmol/L Potassium 5.4 H (3.6-5.0) mmol/L Chloride 106 (98-107) mmol/L Carbon Dioxide 13 L (21-33) mmol/L Anion Gap 18 (10-20) BUN 102 H (7-21) mg/dL Creatinine 7.0 H (0.7-1.2) mg/dl Est GFR ( Amer) 7 Est GFR (Non-Af Amer) 6 POC Glucose (mg/dL) (65-110) mg/dL Random Glucose 120 H (70-110) mg/dL Calcium 7.6 L (8.4-10.5) mg/dL Phosphorus (2.5-4.5) mg/dL Magnesium (1.7-2.2) mg/dL Iron (45-180) ug/dL TIBC (265-497) ug/dL % Saturation (20-55) % Ferritin ng/mL Total Bilirubin (0.2-1.3) mg/dL AST (14-36) U/L ALT (7-56) U/L Alkaline Phosphatase (38-126) U/L Ammonia (9-33) umol/L Lactate Dehydrogenase (333-699) U/L Total Creatine Kinase (35-230) U/L CK-MB (CK-2) (0.0-3.6) ng/mL CK-MB (CK-2) % (2.5-3.0) % Troponin I ng/mL NT-Pro-B Natriuret Pep (0-450) pg/mL Total Protein (5.8-8.3) g/dL Albumin (3.0-4.8) g/dL Globulin gm/dL Albumin/Globulin Ratio (1.1-1.8) TSH 3rd Generation (0.46-4.68) mIU/mL Urine Color (YELLOW) Urine Appearance (CLEAR) Urine pH (4.7-8.0) Ur Specific [place] (1.005-1.035) Urine Protein (<30 mg/dL) mg/dL Urine Glucose (UA) (NEGATIVE) mg/dL Urine Ketones (NEGATIVE) mg/dL Urine Blood (NEGATIVE) Urine Nitrate (NEGATIVE) Urine Bilirubin (NEGATIVE) Urine Urobilinogen (<1 E.U./dL) E.U./dL Ur Leukocyte Esterase (NEGATIVE) Johnie/uL Urine RBC (0-2) /hpf Urine WBC (0-6) /hpf Ur Epithelial Cells (0-5) /hpf Urine Bacteria (NONE) /hpf Ur Random Creatinine mg/dL Ur Random Sodium meq/L Ur Random Urea Nitrogn mg/dL Urine Opiates Screen (NEGATIVE) Urine Methadone Screen (NEGATIVE) Ur Barbiturates Screen (NEGATIVE) Ur Phencyclidine Scrn (NEGATIVE) Ur Amphetamines Screen (NEGATIVE) U Benzodiazepines Scrn (NEGATIVE) U Oth Cocaine Metabols (NEGATIVE) U Cannabinoids Screen (NEGATIVE) Alcohol, Quantitative (0-10) mg/dL Blood Type Blood Type Confirm Antibody Screen Crossmatch BBK History Checked 04/03/18 04/03/18 04/03/18 Range/Units 18:50 18:15 18:13 WBC (4.5-11.0) 10^3/uL RBC (3.5-6.1) 10^6/uL Hgb (12.0-16.0) g/dL Hct (36.0-48.0) % MCV (80.0-105.0) fl MCH (25.0-35.0) pg MCHC (31.0-37.0) g/dl RDW (11.5-14.5) % Plt Count (120.0-450.0) 10^3/uL MPV (7.0-11.0) fl Gran % (50.0-68.0) % Lymph % (Auto) (22.0-35.0) % [place] % (Auto) (1.0-6.0) % Eos % (Auto) (1.5-5.0) % Baso % (Auto) (0.0-3.0) % Gran # (1.4-6.5) Lymph # (Auto) (1.2-3.4) [place] # (Auto) (0.1-0.6) Eos # (Auto) (0.0-0.7) Baso # (Auto) (0.0-2.0) K/mm3 Retic Count 5.63 H (0.5-1.5) % Haptoglobin (30.0-200.0) mg/dL PT (9.4-12.5) SECONDS INR APTT (25.1-36.5) Seconds pCO2 (35-45) mm/Hg pO2 (80-100) mm/Hg HCO3 (21-28) mmol/L ABG pH (7.35-7.45) ABG Total CO2 (22-28) mmol.L ABG O2 Saturation (95-98) % ABG O2 Content (15-23) ML/dl ABG Base Excess (-2.0-3.0) mmol/L ABG Hemoglobin (11.7-17.4) g/dL ABG Carboxyhemoglobin (0.5-1.5) % POC ABG HHb (Measured) (0-5) % ABG Methemoglobin (0.0-3.0) % ABG O2 Capacity (16-24) mL/dl Hgb O2 Saturation (95.0-98.0) % FiO2 % Sodium (132-148) mmol/L Potassium (3.6-5.0) mmol/L Chloride (98-107) mmol/L Carbon Dioxide (21-33) mmol/L Anion Gap (10-20) BUN (7-21) mg/dL Creatinine (0.7-1.2) mg/dl Est GFR ( Amer) Est GFR (Non-Af Amer) POC Glucose (mg/dL) (65-110) mg/dL Random Glucose (70-110) mg/dL Calcium (8.4-10.5) mg/dL Phosphorus (2.5-4.5) mg/dL Magnesium (1.7-2.2) mg/dL Iron (45-180) ug/dL TIBC (265-497) ug/dL % Saturation (20-55) % Ferritin 16.1 ng/mL Total Bilirubin (0.2-1.3) mg/dL AST (14-36) U/L ALT (7-56) U/L Alkaline Phosphatase (38-126) U/L Ammonia (9-33) umol/L Lactate Dehydrogenase (333-699) U/L Total Creatine Kinase (35-230) U/L CK-MB (CK-2) (0.0-3.6) ng/mL CK-MB (CK-2) % (2.5-3.0) % Troponin I ng/mL NT-Pro-B Natriuret Pep (0-450) pg/mL Total Protein (5.8-8.3) g/dL Albumin (3.0-4.8) g/dL Globulin gm/dL Albumin/Globulin Ratio (1.1-1.8) TSH 3rd Generation (0.46-4.68) mIU/mL Urine Color (YELLOW) Urine Appearance (CLEAR) Urine pH (4.7-8.0) Ur Specific [place] (1.005-1.035) Urine Protein (<30 mg/dL) mg/dL Urine Glucose (UA) (NEGATIVE) mg/dL Urine Ketones (NEGATIVE) mg/dL Urine Blood (NEGATIVE) Urine Nitrate (NEGATIVE) Urine Bilirubin (NEGATIVE) Urine Urobilinogen (<1 E.U./dL) E.U./dL Ur Leukocyte Esterase (NEGATIVE) Johnie/uL Urine RBC (0-2) /hpf Urine WBC (0-6) /hpf Ur Epithelial Cells (0-5) /hpf Urine Bacteria (NONE) /hpf Ur Random Creatinine mg/dL Ur Random Sodium meq/L Ur Random Urea Nitrogn mg/dL Urine Opiates Screen (NEGATIVE) Urine Methadone Screen (NEGATIVE) Ur Barbiturates Screen (NEGATIVE) Ur Phencyclidine Scrn (NEGATIVE) Ur Amphetamines Screen (NEGATIVE) U Benzodiazepines Scrn (NEGATIVE) U Oth Cocaine Metabols (NEGATIVE) U Cannabinoids Screen (NEGATIVE) Alcohol, Quantitative (0-10) mg/dL Blood Type Blood Type Confirm B NEGATIVE Antibody Screen Crossmatch BBK History Checked 04/03/18 04/03/18 04/03/18 Range/Units 18:13 17:44 17:41 WBC (4.5-11.0) 10^3/uL RBC (3.5-6.1) 10^6/uL Hgb (12.0-16.0) g/dL Hct (36.0-48.0) % MCV (80.0-105.0) fl MCH (25.0-35.0) pg MCHC (31.0-37.0) g/dl RDW (11.5-14.5) % Plt Count (120.0-450.0) 10^3/uL MPV (7.0-11.0) fl Gran % (50.0-68.0) % Lymph % (Auto) (22.0-35.0) % [place] % (Auto) (1.0-6.0) % Eos % (Auto) (1.5-5.0) % Baso % (Auto) (0.0-3.0) % Gran # (1.4-6.5) Lymph # (Auto) (1.2-3.4) [place] # (Auto) (0.1-0.6) Eos # (Auto) (0.0-0.7) Baso # (Auto) (0.0-2.0) K/mm3 Retic Count (0.5-1.5) % Haptoglobin (30.0-200.0) mg/dL PT (9.4-12.5) SECONDS INR APTT (25.1-36.5) Seconds pCO2 22 L (35-45) mm/Hg pO2 114.0 H (80-100) mm/Hg HCO3 9.9 L* (21-28) mmol/L ABG pH 7.26 L (7.35-7.45) ABG Total CO2 10.6 L (22-28) mmol.L ABG O2 Saturation (95-98) % ABG O2 Content (15-23) ML/dl ABG Base Excess -15.1 L (-2.0-3.0) mmol/L ABG Hemoglobin < 3.0 L (11.7-17.4) g/dL ABG Carboxyhemoglobin (0.5-1.5) % POC ABG HHb (Measured) (0-5) % ABG Methemoglobin (0.0-3.0) % ABG O2 Capacity (16-24) mL/dl Hgb O2 Saturation (95.0-98.0) % FiO2 21.0 % Sodium (132-148) mmol/L Potassium (3.6-5.0) mmol/L Chloride (98-107) mmol/L Carbon Dioxide (21-33) mmol/L Anion Gap (10-20) BUN (7-21) mg/dL Creatinine (0.7-1.2) mg/dl Est GFR ( Amer) Est GFR (Non-Af Amer) POC Glucose (mg/dL) (65-110) mg/dL Random Glucose (70-110) mg/dL Calcium (8.4-10.5) mg/dL Phosphorus (2.5-4.5) mg/dL Magnesium (1.7-2.2) mg/dL Iron 19 L (45-180) ug/dL TIBC 338 (265-497) ug/dL % Saturation 6 L (20-55) % Ferritin ng/mL Total Bilirubin (0.2-1.3) mg/dL AST (14-36) U/L ALT (7-56) U/L Alkaline Phosphatase (38-126) U/L Ammonia (9-33) umol/L Lactate Dehydrogenase (333-699) U/L Total Creatine Kinase (35-230) U/L CK-MB (CK-2) (0.0-3.6) ng/mL CK-MB (CK-2) % (2.5-3.0) % Troponin I ng/mL NT-Pro-B Natriuret Pep (0-450) pg/mL Total Protein (5.8-8.3) g/dL Albumin (3.0-4.8) g/dL Globulin gm/dL Albumin/Globulin Ratio (1.1-1.8) TSH 3rd Generation (0.46-4.68) mIU/mL Urine Color (YELLOW) Urine Appearance (CLEAR) Urine pH (4.7-8.0) Ur Specific [place] (1.005-1.035) Urine Protein (<30 mg/dL) mg/dL Urine Glucose (UA) (NEGATIVE) mg/dL Urine Ketones (NEGATIVE) mg/dL Urine Blood (NEGATIVE) Urine Nitrate (NEGATIVE) Urine Bilirubin (NEGATIVE) Urine Urobilinogen (<1 E.U./dL) E.U./dL Ur Leukocyte Esterase (NEGATIVE) Johnie/uL Urine RBC (0-2) /hpf Urine WBC (0-6) /hpf Ur Epithelial Cells (0-5) /hpf Urine Bacteria (NONE) /hpf Ur Random Creatinine mg/dL Ur Random Sodium meq/L Ur Random Urea Nitrogn mg/dL Urine Opiates Screen (NEGATIVE) Urine Methadone Screen (NEGATIVE) Ur Barbiturates Screen (NEGATIVE) Ur Phencyclidine Scrn (NEGATIVE) Ur Amphetamines Screen (NEGATIVE) U Benzodiazepines Scrn (NEGATIVE) U Oth Cocaine Metabols (NEGATIVE) U Cannabinoids Screen (NEGATIVE) Alcohol, Quantitative (0-10) mg/dL Blood Type B NEGATIVE Blood Type Confirm Antibody Screen Negative Crossmatch See Detail BBK History Checked No verified bt 04/03/18 04/03/18 04/03/18 Range/Units 17:39 17:39 16:45 WBC 10.0 (4.5-11.0) 10^3/uL RBC 1.08 L (3.5-6.1) 10^6/uL Hgb 2.3 L* (12.0-16.0) g/dL Hct 8.1 L* (36.0-48.0) % MCV 75.0 L (80.0-105.0) fl MCH 21.3 L (25.0-35.0) pg MCHC 28.4 L (31.0-37.0) g/dl RDW 24.1 H (11.5-14.5) % Plt Count 164 (120.0-450.0) 10^3/uL MPV 8.9 (7.0-11.0) fl Gran % 79.5 H (50.0-68.0) % Lymph % (Auto) 10.4 L (22.0-35.0) % [place] % (Auto) 7.4 H (1.0-6.0) % Eos % (Auto) 2.5 (1.5-5.0) % Baso % (Auto) 0.2 (0.0-3.0) % Gran # 7.92 H (1.4-6.5) Lymph # (Auto) 1.0 L (1.2-3.4) [place] # (Auto) 0.7 H (0.1-0.6) Eos # (Auto) 0.3 (0.0-0.7) Baso # (Auto) 0.02 (0.0-2.0) K/mm3 Retic Count (0.5-1.5) % Haptoglobin (30.0-200.0) mg/dL PT (9.4-12.5) SECONDS INR APTT (25.1-36.5) Seconds pCO2 (35-45) mm/Hg pO2 (80-100) mm/Hg HCO3 (21-28) mmol/L ABG pH (7.35-7.45) ABG Total CO2 (22-28) mmol.L ABG O2 Saturation (95-98) % ABG O2 Content (15-23) ML/dl ABG Base Excess (-2.0-3.0) mmol/L ABG Hemoglobin (11.7-17.4) g/dL ABG Carboxyhemoglobin (0.5-1.5) % POC ABG HHb (Measured) (0-5) % ABG Methemoglobin (0.0-3.0) % ABG O2 Capacity (16-24) mL/dl Hgb O2 Saturation (95.0-98.0) % FiO2 % Sodium (132-148) mmol/L Potassium (3.6-5.0) mmol/L Chloride (98-107) mmol/L Carbon Dioxide (21-33) mmol/L Anion Gap (10-20) BUN (7-21) mg/dL Creatinine (0.7-1.2) mg/dl Est GFR ( Amer) Est GFR (Non-Af Amer) POC Glucose (mg/dL) (65-110) mg/dL Random Glucose (70-110) mg/dL Calcium (8.4-10.5) mg/dL Phosphorus (2.5-4.5) mg/dL Magnesium (1.7-2.2) mg/dL Iron (45-180) ug/dL TIBC (265-497) ug/dL % Saturation (20-55) % Ferritin ng/mL Total Bilirubin (0.2-1.3) mg/dL AST (14-36) U/L ALT (7-56) U/L Alkaline Phosphatase (38-126) U/L Ammonia (9-33) umol/L Lactate Dehydrogenase (333-699) U/L Total Creatine Kinase (35-230) U/L CK-MB (CK-2) (0.0-3.6) ng/mL CK-MB (CK-2) % (2.5-3.0) % Troponin I ng/mL NT-Pro-B Natriuret Pep (0-450) pg/mL Total Protein (5.8-8.3) g/dL Albumin (3.0-4.8) g/dL Globulin gm/dL Albumin/Globulin Ratio (1.1-1.8) TSH 3rd Generation (0.46-4.68) mIU/mL Urine Color Yellow (YELLOW) Urine Appearance Slight-cloudy (CLEAR) Urine pH 5.0 (4.7-8.0) Ur Specific [place] >= 1.030 (1.005-1.035) Urine Protein Trace H (<30 mg/dL) mg/dL Urine Glucose (UA) Negative (NEGATIVE) mg/dL Urine Ketones Trace H (NEGATIVE) mg/dL Urine Blood Moderate H (NEGATIVE) Urine Nitrate Negative (NEGATIVE) Urine Bilirubin Small H (NEGATIVE) Urine Urobilinogen 0.2 (<1 E.U./dL) E.U./dL Ur Leukocyte Esterase Small H (NEGATIVE) Johnie/uL Urine RBC 5 - 10 H (0-2) /hpf Urine WBC 1 - 3 (0-6) /hpf Ur Epithelial Cells 3 - 4 (0-5) /hpf Urine Bacteria Large (NONE) /hpf Ur Random Creatinine mg/dL Ur Random Sodium meq/L Ur Random Urea Nitrogn mg/dL Urine Opiates Screen Negative (NEGATIVE) Urine Methadone Screen Negative (NEGATIVE) Ur Barbiturates Screen Negative (NEGATIVE) Ur Phencyclidine Scrn Negative (NEGATIVE) Ur Amphetamines Screen Negative (NEGATIVE) U Benzodiazepines Scrn Negative (NEGATIVE) U Oth Cocaine Metabols Negative (NEGATIVE) U Cannabinoids Screen Negative (NEGATIVE) Alcohol, Quantitative (0-10) mg/dL Blood Type Blood Type Confirm Antibody Screen Crossmatch BBK History Checked 04/03/18 04/03/18 04/03/18 Range/Units 15:44 15:44 15:44 WBC (4.5-11.0) 10^3/uL RBC (3.5-6.1) 10^6/uL Hgb (12.0-16.0) g/dL Hct (36.0-48.0) % MCV (80.0-105.0) fl MCH (25.0-35.0) pg MCHC (31.0-37.0) g/dl RDW (11.5-14.5) % Plt Count (120.0-450.0) 10^3/uL MPV (7.0-11.0) fl Gran % (50.0-68.0) % Lymph % (Auto) (22.0-35.0) % [place] % (Auto) (1.0-6.0) % Eos % (Auto) (1.5-5.0) % Baso % (Auto) (0.0-3.0) % Gran # (1.4-6.5) Lymph # (Auto) (1.2-3.4) [place] # (Auto) (0.1-0.6) Eos # (Auto) (0.0-0.7) Baso # (Auto) (0.0-2.0) K/mm3 Retic Count (0.5-1.5) % Haptoglobin (30.0-200.0) mg/dL PT (9.4-12.5) SECONDS INR APTT (25.1-36.5) Seconds pCO2 (35-45) mm/Hg pO2 (80-100) mm/Hg HCO3 (21-28) mmol/L ABG pH (7.35-7.45) ABG Total CO2 (22-28) mmol.L ABG O2 Saturation (95-98) % ABG O2 Content (15-23) ML/dl ABG Base Excess (-2.0-3.0) mmol/L ABG Hemoglobin (11.7-17.4) g/dL ABG Carboxyhemoglobin (0.5-1.5) % POC ABG HHb (Measured) (0-5) % ABG Methemoglobin (0.0-3.0) % ABG O2 Capacity (16-24) mL/dl Hgb O2 Saturation (95.0-98.0) % FiO2 % Sodium 133 (132-148) mmol/L Potassium 5.0 (3.6-5.0) mmol/L Chloride 107 (98-107) mmol/L Carbon Dioxide 11 L (21-33) mmol/L Anion Gap 20 (10-20) BUN 102 H (7-21) mg/dL Creatinine 7.4 H* (0.7-1.2) mg/dl Est GFR ( Amer) 7 Est GFR (Non-Af Amer) 6 POC Glucose (mg/dL) (65-110) mg/dL Random Glucose 105 (70-110) mg/dL Calcium 7.9 L (8.4-10.5) mg/dL Phosphorus 9.7 H (2.5-4.5) mg/dL Magnesium 3.2 H (1.7-2.2) mg/dL Iron (45-180) ug/dL TIBC (265-497) ug/dL % Saturation (20-55) % Ferritin ng/mL Total Bilirubin 1.9 H (0.2-1.3) mg/dL AST 50 H (14-36) U/L ALT 31 (7-56) U/L Alkaline Phosphatase 166 H (38-126) U/L Ammonia 39 H (9-33) umol/L Lactate Dehydrogenase 518 (333-699) U/L Total Creatine Kinase 291 H (35-230) U/L CK-MB (CK-2) 5.0 H (0.0-3.6) ng/mL CK-MB (CK-2) % 1.7 L (2.5-3.0) % Troponin I 0.11 ng/mL NT-Pro-B Natriuret Pep 03136 H (0-450) pg/mL Total Protein 6.3 (5.8-8.3) g/dL Albumin 2.6 L (3.0-4.8) g/dL Globulin 3.7 gm/dL Albumin/Globulin Ratio 0.7 L (1.1-1.8) TSH 3rd Generation 6.37 H (0.46-4.68) mIU/mL Urine Color (YELLOW) Urine Appearance (CLEAR) Urine pH (4.7-8.0) Ur Specific [place] (1.005-1.035) Urine Protein (<30 mg/dL) mg/dL Urine Glucose (UA) (NEGATIVE) mg/dL Urine Ketones (NEGATIVE) mg/dL Urine Blood (NEGATIVE) Urine Nitrate (NEGATIVE) Urine Bilirubin (NEGATIVE) Urine Urobilinogen (<1 E.U./dL) E.U./dL Ur Leukocyte Esterase (NEGATIVE) Johnie/uL Urine RBC (0-2) /hpf Urine WBC (0-6) /hpf Ur Epithelial Cells (0-5) /hpf Urine Bacteria (NONE) /hpf Ur Random Creatinine mg/dL Ur Random Sodium meq/L Ur Random Urea Nitrogn mg/dL Urine Opiates Screen (NEGATIVE) Urine Methadone Screen (NEGATIVE) Ur Barbiturates Screen (NEGATIVE) Ur Phencyclidine Scrn (NEGATIVE) Ur Amphetamines Screen (NEGATIVE) U Benzodiazepines Scrn (NEGATIVE) U Oth Cocaine Metabols (NEGATIVE) U Cannabinoids Screen (NEGATIVE) Alcohol, Quantitative < 10 (0-10) mg/dL Blood Type Blood Type Confirm Antibody Screen Crossmatch BBK History Checked 04/03/18 Range/Units 15:44 WBC (4.5-11.0) 10^3/uL RBC (3.5-6.1) 10^6/uL Hgb (12.0-16.0) g/dL Hct (36.0-48.0) % MCV (80.0-105.0) fl MCH (25.0-35.0) pg MCHC (31.0-37.0) g/dl RDW (11.5-14.5) % Plt Count (120.0-450.0) 10^3/uL MPV (7.0-11.0) fl Gran % (50.0-68.0) % Lymph % (Auto) (22.0-35.0) % [place] % (Auto) (1.0-6.0) % Eos % (Auto) (1.5-5.0) % Baso % (Auto) (0.0-3.0) % Gran # (1.4-6.5) Lymph # (Auto) (1.2-3.4) [place] # (Auto) (0.1-0.6) Eos # (Auto) (0.0-0.7) Baso # (Auto) (0.0-2.0) K/mm3 Retic Count (0.5-1.5) % Haptoglobin (30.0-200.0) mg/dL PT 13.2 H (9.4-12.5) SECONDS INR 1.15 APTT 30.7 (25.1-36.5) Seconds pCO2 (35-45) mm/Hg pO2 (80-100) mm/Hg HCO3 (21-28) mmol/L ABG pH (7.35-7.45) ABG Total CO2 (22-28) mmol.L ABG O2 Saturation (95-98) % ABG O2 Content (15-23) ML/dl ABG Base Excess (-2.0-3.0) mmol/L ABG Hemoglobin (11.7-17.4) g/dL ABG Carboxyhemoglobin (0.5-1.5) % POC ABG HHb (Measured) (0-5) % ABG Methemoglobin (0.0-3.0) % ABG O2 Capacity (16-24) mL/dl Hgb O2 Saturation (95.0-98.0) % FiO2 % Sodium (132-148) mmol/L Potassium (3.6-5.0) mmol/L Chloride (98-107) mmol/L Carbon Dioxide (21-33) mmol/L Anion Gap (10-20) BUN (7-21) mg/dL Creatinine (0.7-1.2) mg/dl Est GFR ( Amer) Est GFR (Non-Af Amer) POC Glucose (mg/dL) (65-110) mg/dL Random Glucose (70-110) mg/dL Calcium (8.4-10.5) mg/dL Phosphorus (2.5-4.5) mg/dL Magnesium (1.7-2.2) mg/dL Iron (45-180) ug/dL TIBC (265-497) ug/dL % Saturation (20-55) % Ferritin ng/mL Total Bilirubin (0.2-1.3) mg/dL AST (14-36) U/L ALT (7-56) U/L Alkaline Phosphatase (38-126) U/L Ammonia (9-33) umol/L Lactate Dehydrogenase (333-699) U/L Total Creatine Kinase (35-230) U/L CK-MB (CK-2) (0.0-3.6) ng/mL CK-MB (CK-2) % (2.5-3.0) % Troponin I ng/mL NT-Pro-B Natriuret Pep (0-450) pg/mL Total Protein (5.8-8.3) g/dL Albumin (3.0-4.8) g/dL Globulin gm/dL Albumin/Globulin Ratio (1.1-1.8) TSH 3rd Generation (0.46-4.68) mIU/mL Urine Color (YELLOW) Urine Appearance (CLEAR) Urine pH (4.7-8.0) Ur Specific [place] (1.005-1.035) Urine Protein (<30 mg/dL) mg/dL Urine Glucose (UA) (NEGATIVE) mg/dL Urine Ketones (NEGATIVE) mg/dL Urine Blood (NEGATIVE) Urine Nitrate (NEGATIVE) Urine Bilirubin (NEGATIVE) Urine Urobilinogen (<1 E.U./dL) E.U./dL Ur Leukocyte Esterase (NEGATIVE) Johnie/uL Urine RBC (0-2) /hpf Urine WBC (0-6) /hpf Ur Epithelial Cells (0-5) /hpf Urine Bacteria (NONE) /hpf Ur Random Creatinine mg/dL Ur Random Sodium meq/L Ur Random Urea Nitrogn mg/dL Urine Opiates Screen (NEGATIVE) Urine Methadone Screen (NEGATIVE) Ur Barbiturates Screen (NEGATIVE) Ur Phencyclidine Scrn (NEGATIVE) Ur Amphetamines Screen (NEGATIVE) U Benzodiazepines Scrn (NEGATIVE) U Oth Cocaine Metabols (NEGATIVE) U Cannabinoids Screen (NEGATIVE) Alcohol, Quantitative (0-10) mg/dL Blood Type Blood Type Confirm Antibody Screen Crossmatch BBK History Checked Laboratory Results - last 24 hr 04/03/18 04/03/18 04/03/18 15:44 15:44 15:44 WBC RBC Hgb Hct MCV MCH MCHC RDW Plt Count MPV Gran % Lymph % (Auto) [place] % (Auto) Eos % (Auto) Baso % (Auto) Gran # Lymph # (Auto) [place] # (Auto) Eos # (Auto) Baso # (Auto) Retic Count Haptoglobin PT 13.2 H INR 1.15 APTT 30.7 pCO2 pO2 HCO3 ABG pH ABG Total CO2 ABG O2 Saturation ABG O2 Content ABG Base Excess ABG Hemoglobin ABG Carboxyhemoglobin POC ABG HHb (Measured) ABG Methemoglobin ABG O2 Capacity Hgb O2 Saturation FiO2 Sodium 133 Potassium 5.0 Chloride 107 Carbon Dioxide 11 L Anion Gap 20 BUN 102 H Creatinine 7.4 H* Est GFR ( Amer) 7 Est GFR (Non-Af Amer) 6 POC Glucose (mg/dL) Random Glucose 105 Calcium 7.9 L Phosphorus 9.7 H Magnesium 3.2 H Iron TIBC % Saturation Ferritin Total Bilirubin 1.9 H AST 50 H ALT 31 Alkaline Phosphatase 166 H Ammonia 39 H Lactate Dehydrogenase 518 Total Creatine Kinase 291 H CK-MB (CK-2) 5.0 H CK-MB (CK-2) % 1.7 L Troponin I 0.11 NT-Pro-B Natriuret Pep 86789 H Total Protein 6.3 Albumin 2.6 L Globulin 3.7 Albumin/Globulin Ratio 0.7 L TSH 3rd Generation Urine Color Urine Appearance Urine pH Ur Specific [place] Urine Protein Urine Glucose (UA) Urine Ketones Urine Blood Urine Nitrate Urine Bilirubin Urine Urobilinogen Ur Leukocyte Esterase Urine RBC Urine WBC Ur Epithelial Cells Urine Bacteria Ur Random Creatinine Ur Random Sodium Ur Random Urea Nitrogn Urine Opiates Screen Urine Methadone Screen Ur Barbiturates Screen Ur Phencyclidine Scrn Ur Amphetamines Screen U Benzodiazepines Scrn U Oth Cocaine Metabols U Cannabinoids Screen Alcohol, Quantitative Blood Type Blood Type Confirm Antibody Screen Crossmatch BBK History Checked 04/03/18 04/03/18 04/03/18 15:44 16:45 17:39 WBC 10.0 RBC 1.08 L Hgb 2.3 L* Hct 8.1 L* MCV 75.0 L MCH 21.3 L MCHC 28.4 L RDW 24.1 H Plt Count 164 MPV 8.9 Gran % 79.5 H Lymph % (Auto) 10.4 L [place] % (Auto) 7.4 H Eos % (Auto) 2.5 Baso % (Auto) 0.2 Gran # 7.92 H Lymph # (Auto) 1.0 L [place] # (Auto) 0.7 H Eos # (Auto) 0.3 Baso # (Auto) 0.02 Retic Count Haptoglobin PT INR APTT pCO2 pO2 HCO3 ABG pH ABG Total CO2 ABG O2 Saturation ABG O2 Content ABG Base Excess ABG Hemoglobin ABG Carboxyhemoglobin POC ABG HHb (Measured) ABG Methemoglobin ABG O2 Capacity Hgb O2 Saturation FiO2 Sodium Potassium Chloride Carbon Dioxide Anion Gap BUN Creatinine Est GFR ( Amer) Est GFR (Non-Af Amer) POC Glucose (mg/dL) Random Glucose Calcium Phosphorus Magnesium Iron TIBC % Saturation Ferritin Total Bilirubin AST ALT Alkaline Phosphatase Ammonia Lactate Dehydrogenase Total Creatine Kinase CK-MB (CK-2) CK-MB (CK-2) % Troponin I NT-Pro-B Natriuret Pep Total Protein Albumin Globulin Albumin/Globulin Ratio TSH 3rd Generation 6.37 H Urine Color Yellow Urine Appearance Slight-cloudy Urine pH 5.0 Ur Specific [place] >= 1.030 Urine Protein Trace H Urine Glucose (UA) Negative Urine Ketones Trace H Urine Blood Moderate H Urine Nitrate Negative Urine Bilirubin Small H Urine Urobilinogen 0.2 Ur Leukocyte Esterase Small H Urine RBC 5 - 10 H Urine WBC 1 - 3 Ur Epithelial Cells 3 - 4 Urine Bacteria Large Ur Random Creatinine Ur Random Sodium Ur Random Urea Nitrogn Urine Opiates Screen Urine Methadone Screen Ur Barbiturates Screen Ur Phencyclidine Scrn Ur Amphetamines Screen U Benzodiazepines Scrn U Oth Cocaine Metabols U Cannabinoids Screen Alcohol, Quantitative < 10 Blood Type Blood Type Confirm Antibody Screen Crossmatch BBK History Checked 04/03/18 04/03/18 04/03/18 17:39 17:41 17:44 WBC RBC Hgb Hct MCV MCH MCHC RDW Plt Count MPV Gran % Lymph % (Auto) [place] % (Auto) Eos % (Auto) Baso % (Auto) Gran # Lymph # (Auto) [place] # (Auto) Eos # (Auto) Baso # (Auto) Retic Count Haptoglobin PT INR APTT pCO2 22 L pO2 114.0 H HCO3 9.9 L* ABG pH 7.26 L ABG Total CO2 10.6 L ABG O2 Saturation ABG O2 Content ABG Base Excess -15.1 L ABG Hemoglobin < 3.0 L ABG Carboxyhemoglobin POC ABG HHb (Measured) ABG Methemoglobin ABG O2 Capacity Hgb O2 Saturation FiO2 21.0 Sodium Potassium Chloride Carbon Dioxide Anion Gap BUN Creatinine Est GFR ( Amer) Est GFR (Non-Af Amer) POC Glucose (mg/dL) Random Glucose Calcium Phosphorus Magnesium Iron TIBC % Saturation Ferritin Total Bilirubin AST ALT Alkaline Phosphatase Ammonia Lactate Dehydrogenase Total Creatine Kinase CK-MB (CK-2) CK-MB (CK-2) % Troponin I NT-Pro-B Natriuret Pep Total Protein Albumin Globulin Albumin/Globulin Ratio TSH 3rd Generation Urine Color Urine Appearance Urine pH Ur Specific [place] Urine Protein Urine Glucose (UA) Urine Ketones Urine Blood Urine Nitrate Urine Bilirubin Urine Urobilinogen Ur Leukocyte Esterase Urine RBC Urine WBC Ur Epithelial Cells Urine Bacteria Ur Random Creatinine Ur Random Sodium Ur Random Urea Nitrogn Urine Opiates Screen Negative Urine Methadone Screen Negative Ur Barbiturates Screen Negative Ur Phencyclidine Scrn Negative Ur Amphetamines Screen Negative U Benzodiazepines Scrn Negative U Oth Cocaine Metabols Negative U Cannabinoids Screen Negative Alcohol, Quantitative Blood Type B NEGATIVE Blood Type Confirm Antibody Screen Negative Crossmatch See Detail BBK History Checked No verified bt 04/03/18 04/03/18 04/03/18 18:13 18:13 18:15 WBC RBC Hgb Hct MCV MCH MCHC RDW Plt Count MPV Gran % Lymph % (Auto) [place] % (Auto) Eos % (Auto) Baso % (Auto) Gran # Lymph # (Auto) [place] # (Auto) Eos # (Auto) Baso # (Auto) Retic Count 5.63 H Haptoglobin PT INR APTT pCO2 pO2 HCO3 ABG pH ABG Total CO2 ABG O2 Saturation ABG O2 Content ABG Base Excess ABG Hemoglobin ABG Carboxyhemoglobin POC ABG HHb (Measured) ABG Methemoglobin ABG O2 Capacity Hgb O2 Saturation FiO2 Sodium Potassium Chloride Carbon Dioxide Anion Gap BUN Creatinine Est GFR ( Amer) Est GFR (Non-Af Amer) POC Glucose (mg/dL) Random Glucose Calcium Phosphorus Magnesium Iron 19 L TIBC 338 % Saturation 6 L Ferritin 16.1 Total Bilirubin AST ALT Alkaline Phosphatase Ammonia Lactate Dehydrogenase Total Creatine Kinase CK-MB (CK-2) CK-MB (CK-2) % Troponin I NT-Pro-B Natriuret Pep Total Protein Albumin Globulin Albumin/Globulin Ratio TSH 3rd Generation Urine Color Urine Appearance Urine pH Ur Specific [place] Urine Protein Urine Glucose (UA) Urine Ketones Urine Blood Urine Nitrate Urine Bilirubin Urine Urobilinogen Ur Leukocyte Esterase Urine RBC Urine WBC Ur Epithelial Cells Urine Bacteria Ur Random Creatinine Ur Random Sodium Ur Random Urea Nitrogn Urine Opiates Screen Urine Methadone Screen Ur Barbiturates Screen Ur Phencyclidine Scrn Ur Amphetamines Screen U Benzodiazepines Scrn U Oth Cocaine Metabols U Cannabinoids Screen Alcohol, Quantitative Blood Type Blood Type Confirm Antibody Screen Crossmatch BBK History Checked 04/03/18 04/03/18 04/03/18 18:50 19:00 22:58 WBC 9.9 RBC 1.38 L Hgb 3.4 L* Hct 11.1 L* MCV 80.4 D MCH 24.6 L MCHC 30.6 L RDW 26.0 H Plt Count 164 MPV 8.4 Gran % Lymph % (Auto) [place] % (Auto) Eos % (Auto) Baso % (Auto) Gran # Lymph # (Auto) [place] # (Auto) Eos # (Auto) Baso # (Auto) Retic Count Haptoglobin 63.4 PT INR APTT pCO2 pO2 HCO3 ABG pH ABG Total CO2 ABG O2 Saturation ABG O2 Content ABG Base Excess ABG Hemoglobin ABG Carboxyhemoglobin POC ABG HHb (Measured) ABG Methemoglobin ABG O2 Capacity Hgb O2 Saturation FiO2 Sodium Potassium Chloride Carbon Dioxide Anion Gap BUN Creatinine Est GFR ( Amer) Est GFR (Non-Af Amer) POC Glucose (mg/dL) Random Glucose Calcium Phosphorus Magnesium Iron TIBC % Saturation Ferritin Total Bilirubin AST ALT Alkaline Phosphatase Ammonia Lactate Dehydrogenase Total Creatine Kinase CK-MB (CK-2) CK-MB (CK-2) % Troponin I NT-Pro-B Natriuret Pep Total Protein Albumin Globulin Albumin/Globulin Ratio TSH 3rd Generation Urine Color Urine Appearance Urine pH Ur Specific [place] Urine Protein Urine Glucose (UA) Urine Ketones Urine Blood Urine Nitrate Urine Bilirubin Urine Urobilinogen Ur Leukocyte Esterase Urine RBC Urine WBC Ur Epithelial Cells Urine Bacteria Ur Random Creatinine Ur Random Sodium Ur Random Urea Nitrogn Urine Opiates Screen Urine Methadone Screen Ur Barbiturates Screen Ur Phencyclidine Scrn Ur Amphetamines Screen U Benzodiazepines Scrn U Oth Cocaine Metabols U Cannabinoids Screen Alcohol, Quantitative Blood Type Blood Type Confirm B NEGATIVE Antibody Screen Crossmatch BBK History Checked 04/04/18 04/04/18 04/04/18 00:40 01:30 02:17 WBC RBC Hgb Hct MCV MCH MCHC RDW Plt Count MPV Gran % Lymph % (Auto) [place] % (Auto) Eos % (Auto) Baso % (Auto) Gran # Lymph # (Auto) [place] # (Auto) Eos # (Auto) Baso # (Auto) Retic Count Haptoglobin PT INR APTT pCO2 24 L pO2 164.0 H HCO3 10.8 L ABG pH 7.26 L ABG Total CO2 11.5 L ABG O2 Saturation 98.9 H ABG O2 Content 7.2 L ABG Base Excess -15.0 L ABG Hemoglobin 5.0 L ABG Carboxyhemoglobin 2.2 H POC ABG HHb (Measured) 1.1 ABG Methemoglobin 1.2 ABG O2 Capacity 7.3 L Hgb O2 Saturation 95.5 FiO2 32.0 Sodium 131 L Potassium 5.4 H Chloride 106 Carbon Dioxide 13 L Anion Gap 18 BUN 102 H Creatinine 7.0 H Est GFR ( Amer) 7 Est GFR (Non-Af Amer) 6 POC Glucose (mg/dL) 154 H Random Glucose 120 H Calcium 7.6 L Phosphorus Magnesium Iron TIBC % Saturation Ferritin Total Bilirubin AST ALT Alkaline Phosphatase Ammonia Lactate Dehydrogenase Total Creatine Kinase CK-MB (CK-2) CK-MB (CK-2) % Troponin I NT-Pro-B Natriuret Pep Total Protein Albumin Globulin Albumin/Globulin Ratio TSH 3rd Generation Urine Color Urine Appearance Urine pH Ur Specific [place] Urine Protein Urine Glucose (UA) Urine Ketones Urine Blood Urine Nitrate Urine Bilirubin Urine Urobilinogen Ur Leukocyte Esterase Urine RBC Urine WBC Ur Epithelial Cells Urine Bacteria Ur Random Creatinine Ur Random Sodium Ur Random Urea Nitrogn Urine Opiates Screen Urine Methadone Screen Ur Barbiturates Screen Ur Phencyclidine Scrn Ur Amphetamines Screen U Benzodiazepines Scrn U Oth Cocaine Metabols U Cannabinoids Screen Alcohol, Quantitative Blood Type Blood Type Confirm Antibody Screen Crossmatch BBK History Checked 04/04/18 04/04/18 04/04/18 04:14 04:14 04:24 WBC 8.8 RBC 2.06 L Hgb 5.4 L* D Hct 16.9 L* MCV 82.0 MCH 26.2 MCHC 32.0 RDW 21.1 H Plt Count 138 MPV 8.6 Gran % 75.3 H Lymph % (Auto) 11.4 L [place] % (Auto) 8.9 H Eos % (Auto) 4.2 Baso % (Auto) 0.2 Gran # 6.61 H Lymph # (Auto) 1.0 L [place] # (Auto) 0.8 H Eos # (Auto) 0.4 Baso # (Auto) 0.02 Retic Count Haptoglobin PT INR APTT pCO2 pO2 HCO3 ABG pH ABG Total CO2 ABG O2 Saturation ABG O2 Content ABG Base Excess ABG Hemoglobin ABG Carboxyhemoglobin POC ABG HHb (Measured) ABG Methemoglobin ABG O2 Capacity Hgb O2 Saturation FiO2 Sodium 132 Potassium 5.3 H Chloride 106 Carbon Dioxide 13 L Anion Gap 18 BUN 101 H Creatinine 7.1 H Est GFR ( Amer) 7 Est GFR (Non-Af Amer) 6 POC Glucose (mg/dL) 149 H Random Glucose 131 H Calcium 7.8 L Phosphorus 10.1 H Magnesium 3.3 H Iron TIBC % Saturation Ferritin Total Bilirubin 2.7 H AST 42 H ALT 36 Alkaline Phosphatase 153 H Ammonia Lactate Dehydrogenase Total Creatine Kinase CK-MB (CK-2) CK-MB (CK-2) % Troponin I NT-Pro-B Natriuret Pep Total Protein 6.2 Albumin 2.7 L Globulin 3.5 Albumin/Globulin Ratio 0.8 L TSH 3rd Generation Urine Color Urine Appearance Urine pH Ur Specific [place] Urine Protein Urine Glucose (UA) Urine Ketones Urine Blood Urine Nitrate Urine Bilirubin Urine Urobilinogen Ur Leukocyte Esterase Urine RBC Urine WBC Ur Epithelial Cells Urine Bacteria Ur Random Creatinine Ur Random Sodium Ur Random Urea Nitrogn Urine Opiates Screen Urine Methadone Screen Ur Barbiturates Screen Ur Phencyclidine Scrn Ur Amphetamines Screen U Benzodiazepines Scrn U Oth Cocaine Metabols U Cannabinoids Screen Alcohol, Quantitative Blood Type Blood Type Confirm Antibody Screen Crossmatch BBK History Checked 04/04/18 06:30 WBC RBC Hgb Hct MCV MCH MCHC RDW Plt Count MPV Gran % Lymph % (Auto) [place] % (Auto) Eos % (Auto) Baso % (Auto) Gran # Lymph # (Auto) [place] # (Auto) Eos # (Auto) Baso # (Auto) Retic Count Haptoglobin PT INR APTT pCO2 pO2 HCO3 ABG pH ABG Total CO2 ABG O2 Saturation ABG O2 Content ABG Base Excess ABG Hemoglobin ABG Carboxyhemoglobin POC ABG HHb (Measured) ABG Methemoglobin ABG O2 Capacity Hgb O2 Saturation FiO2 Sodium Potassium Chloride Carbon Dioxide Anion Gap BUN Creatinine Est GFR ( Amer) Est GFR (Non-Af Amer) POC Glucose (mg/dL) Random Glucose Calcium Phosphorus Magnesium Iron TIBC % Saturation Ferritin Total Bilirubin AST ALT Alkaline Phosphatase Ammonia Lactate Dehydrogenase Total Creatine Kinase CK-MB (CK-2) CK-MB (CK-2) % Troponin I NT-Pro-B Natriuret Pep Total Protein Albumin Globulin Albumin/Globulin Ratio TSH 3rd Generation Urine Color Urine Appearance Urine pH Ur Specific [place] Urine Protein Urine Glucose (UA) Urine Ketones Urine Blood Urine Nitrate Urine Bilirubin Urine Urobilinogen Ur Leukocyte Esterase Urine RBC Urine WBC Ur Epithelial Cells Urine Bacteria Ur Random Creatinine 280 Ur Random Sodium 18 Ur Random Urea Nitrogn 301 Urine Opiates Screen Urine Methadone Screen Ur Barbiturates Screen Ur Phencyclidine Scrn Ur Amphetamines Screen U Benzodiazepines Scrn U Oth Cocaine Metabols U Cannabinoids Screen Alcohol, Quantitative Blood Type Blood Type Confirm Antibody Screen Crossmatch BBK History Checked Radiology Impressions: Radiology Impressions Chest X-Ray 04/03/18 14:57 IMPRESSION: Mild cardiomegaly. No focal consolidation. Abdomen/Pelvis CT 04/03/18 18:00 IMPRESSION: Upper abdominal adenopathy in the region of the hepatic gastric ligament. Status post the gastric surgery. Cholecystectomy. Extensive ascites and anasarca. Head CT 04/03/18 18:05 IMPRESSION: Normal CT of the Head. Chest X-Ray 04/04/18 05:00 IMPRESSION: No active disease. EKG/Cardiology Studies: Cardiology / EKG Studies 04/03/18 14:57 ELECTROCARDIOGRAM Stat Comment: Reason For Exam: weak Critical Care Progress Note - Nutrition Nutrition: Nutrition Category Date Time Status NPO Diet [DIET] Diets 04/03/18 Dinner Ordered Assessment/Plan - Assessment and Plan (Free Text) Assessment: Patient seen and examined on rounds, with resident, agree with note with following additions/exceptions: 52yo female with PMHx of Liver failure, morbid obesity, depression, etoh abuse, presents with lethargy, fatigue, multiple lab abnormalities, including anemia, ARF CUrrently afebrile, BP stable, comfortable in NAD, improvement in pallor, O2 sat 99% on 2LNC Labs, imaging, chart reviewed. HH with an inappropriate response, will receive 3u PRBC GI, renal consulted Anemia ARF Metabolic Acidosis Morbid Obesity GIB Hx etOH abuse Hx Depression Fatigue Lethargy Recommend: - supp o2 as needed, duonebs PRN, frequent lung checks in setting of prbc transfusion - panculture, UCx, BCx, UA, check Procal, hold off abx for now, WBC wnl, no fevert - ECHO - NPO - transfuse additional 3u prbc - GI consult - PPI gtt, Octreotide gtt - Renal consult - cont IVF with Bicarb - I/Os, currently has 100cc of urine in the lee - psych eval - maintain 2 large bore PIVs - GI ppx, - DVT ppx, SCDs - Admit to MICU Critical care time 30 minutes
[2018-04-04 07:37] LABS: CREATININE,RANDOM URINE 280 mg/dL
--- NOTE | 2018-04-04 08:09 | CARD ---
APPROVED REPORT Date of service: 04/03/2018 EKG Measurement Heart [id number] <Conclusion> Normal sinus rhythm LAD STTW changes c/w ischemia Possible lateral AR, age unknown
--- NOTE | 2018-04-04 08:33 | CT ---
Date of service: 04/03/2018 PROCEDURE: CT HEAD WITHOUT CONTRAST. HISTORY: r/o bleed COMPARISON: None available. TECHNIQUE: Axial computed tomography images were obtained through the head/brain without intravenous contrast. Radiation dose: Total exam DLP = 1019.28 mGy-cm. This CT exam was performed using one or more of the following dose reduction techniques: Automated exposure control, adjustment of the mA and/or kV according to patient size, and/or use of iterative reconstruction technique. FINDINGS: HEMORRHAGE: No intracranial hemorrhage. BRAIN: No mass effect or edema. No atrophy or chronic microvascular ischemic changes. VENTRICLES: Unremarkable. No hydrocephalus. CALVARIUM: Unremarkable. PARANASAL SINUSES: Unremarkable as visualized. No significant inflammatory changes. MASTOID AIR CELLS: Unremarkable as visualized. No inflammatory changes. OTHER FINDINGS: None. IMPRESSION: Normal CT of the Head.
--- NOTE | 2018-04-04 08:39 | CT ---
Date of service: 04/03/2018 PROCEDURE: CT Abdomen and Pelvis without intravenous contrast HISTORY: ? abdominal bleed COMPARISON: None. TECHNIQUE: Technique. Contrast dose: Radiation dose: Total exam DLP = 1234.95 mGy-cm. This CT exam was performed using one or more of the following dose reduction techniques: Automated exposure control, adjustment of the mA and/or kV according to patient size, and/or use of iterative reconstruction technique. FINDINGS: LOWER THORAX: Unremarkable. LIVER: Unremarkable. No gross lesion or ductal dilatation. GALLBLADDER AND BILE DUCTS: Cholecystectomy. PANCREAS: Unremarkable. No gross lesion or ductal dilatation. SPLEEN: Unremarkable. ADRENALS: Unremarkable. No mass. KIDNEYS AND URETERS: Unremarkable. No hydronephrosis. No solid mass. VASCULATURE: Unremarkable. No aortic aneurysm. No aortic atherosclerotic calcification or mural plaque present. BOWEL: Unremarkable. No obstruction. No gross mural thickening. APPENDIX: Unremarkable. Normal appendix. PERITONEUM: Abdominal ascites and anasarca. LYMPH NODES: Upper abdominal adenopathy in the region of the hepatic gastric ligament. Status post the gastric surgery. BLADDER: [place] catheter in the bladder. REPRODUCTIVE: Unremarkable. BONES: No acute fracture. OTHER FINDINGS: None. IMPRESSION: Upper abdominal adenopathy in the region of the hepatic gastric ligament. Status post the gastric surgery. Cholecystectomy. Extensive ascites and anasarca.
--- NOTE | 2018-04-04 09:49 | RAD ---
Date of service: 04/04/2018 HISTORY: weakness COMPARISON: 04/03/2018 FINDINGS: LUNGS: No active pulmonary disease. PLEURA: No significant pleural effusion identified, no pneumothorax apparent. CARDIOVASCULAR: No aortic atherosclerotic calcification present. Mild cardiomegaly no pulmonary vascular congestion. OSSEOUS STRUCTURES: No significant abnormalities. VISUALIZED UPPER ABDOMEN: Normal. OTHER FINDINGS: None. IMPRESSION: No active disease.
[2018-04-04] MEDS: Pantoprazole 40mg/100mL NS 40 MG/100 ML BAG IVPB SCH ×3 (11:00→17:15)
--- NOTE | 2018-04-04 13:25 | US ---
Date of service: 04/04/2018 PROCEDURE: Ultrasound of the Kidneys HISTORY: robert COMPARISON: None available. TECHNIQUE: Sonogram of the kidneys. FINDINGS: RIGHT KIDNEY: Measures: 9.72 x 4.67 x 5.44 cm. Normal in size, contour and echogenicity. No stone, solid mass lesion or hydronephrosis visualized. LEFT KIDNEY: Measures: 9.66 x 4.90 x 4.69 cm. Normal in size, contour and echogenicity. No stone, solid mass lesion or hydronephrosis visualized. OTHER FINDINGS: None. IMPRESSION: Unremarkable renal sonogram.
[2018-04-04 13:27] LABS: BASO # 0.01 K/mm3 (0.0-2.0); BASO % 0.1 % (0.0-3.0); EOS # 0.4 (0.0-0.7); EOS % 3.7 % (1.5-5.0); GRAN # 7.39 (1.4-6.5); GRAN % 77.2 % (50.0-68.0); LYMPH % 9.9 % (22.0-35.0); MEAN CELL VOLUME 81.1 fl (80.0-105.0); MEAN CORPUSCULAR HGB CONC 32.1 g/dl (31.0-37.0); MEAN PLATELET VOLUME 8.1 fl (7.0-11.0); MONO # 0.9 (0.1-0.6); MONO % 9.1 % (1.0-6.0); RBC 2.27 10^6/uL (3.5-6.1); WHITE BLOOD COUNT 9.6 10^3/uL (4.5-11.0)
[2018-04-04 13:30] LABS: HEMOGLOBIN 5.9 g/dL (12.0-16.0)
[2018-04-04 13:39] LABS: FOLATE 13.3 ng/mL
[2018-04-04 13:56] LABS: FREE T4 0.91 ng/dL (0.78-2.19)
[2018-04-04 14:10] LABS: T3 0.53 ng/mL (0.97-1.69)
--- NOTE | 2018-04-04 16:06 | CP.PCM.CON ---
History of Present Illness - History of Present Illness History of Present Illness: Nephrology Consultation Note: Assessment: critical Acute Kidney Injury (N17.9) likely due to ATN, pre-renal state, intrasvasc hypovolemia, impaired renal perfusion anasarca severe symptomatic anemia mild hyperkalemia and HAGMA, hyperphos hx of cirrhosis and etoh intra-ab lymphadenopathy morbid obesity Plan likely will need renal replacement therapy soon,Will plan for HD tomorrow if no improvement in urine output overnight. d/w pt and consent obtained. pros/cons of HD d/w patient, she understood and agreed Maintain hemodynamics stable. Avoid hypotension. Patient not on ACEI/ARB due to recent FELIPE Monitor Input/Output, daily weights and renal function with basic metabolic panel will start phos binders once on diet PRBC as per ICU. will start IV iron GI consult pt on PPI and octreotide drip continue with bicarb drip Check HIV/Hep B and Hep C serology Dose meds/antibiotics for reduced GFR. Avoid fleets enema/magnesium based laxatives. Avoid nephrotoxins/NSAIDs/ iodinated contrast (unless needed emergently) Glycemic control Further work up/management as per primary team Thanks for allowing me to participate in care of your patient. Will follow patient with you. Please call if any Qs. had d/w team Dr Kenji Salmeron Office: [phone] Chief Complaint; fatigue Reason for consult: Acute Kidney Injury HPI: Pt is a 52 F with hx of alcoholism in past, cirrhosis (pt states got better on its own in past) but no regular follow up with PMD presented with complaints of fatigue and tiredness for last few days, found to have severe anemia and FELIPE Denies OTC/herbal meds but NSAIDs as alleve for last few days No recent iodinated contrast exposure. Noted obvious episodes of low BP. reports chronic leg swelling but more now denies smoking or etoh now ROS: c/o swelling in leg Cardiovascular: No chest pain. Pulmonary: No shortness of breath Gastrointestinal: denies abdominal pain No nausea. No vomiting. Genitourinary: No pain while urinating. Denies blood in urine. All other negative except as mentioned in HPI Physical Examination: General Appearance: Comfortable, in no acute respiratory distress, co-operative . morbid obese Vitals reviewed and noted as below Head; Atraumatic, normocephalic ENT: no ulcers no thrush. Tongue is midline. Oropharynx: no rash or ulcers. EYES: Pupils are equal, round and reactive to light accommodation. Eye muscles and extraocular movement intact. Sclera is anicteric. Neck; supple no lymphadenopathy, no thyromegaly or bruit Lungs: Normal respiratory rate/effort. Breath sounds bilateral equal and clear Heart: Normal rate. s1s2 normal. No rub or gallop. Extremities: 3+ edema. No varicose veins Neurological: Patient is alert, awake and oriented to person, place and time. No focal deficit. Strength bilateral appropriate and equal Skin: Warm and dry. Normal turgor. spider angioma rash upper chest. Palpitation: Normal elasticity for age Abdomen: Abdomen is soft. Bowel sounds +. There is no abdominal tenderness, no guarding/rigidity no organomegaly. limited due to obesity and abd wall edema Psych: normal insight and normal affect/mood MSK: no joint tenderness or swelling. Digits and nails normal, no deformity : kidney or bladder not palpable. has lee Labs/imaging reviewed. Past medical history, past surgical history, family history, social history, allergy reviewed and noted as below Family hx: no hx of CKD. Rest non-contributory fena 0.3% intra-ab lymphadenopathy Past Patient History - Past Social History Smoking Status: Former Smoker - CARDIAC Hx Congestive Heart Failure: Yes - NEUROLOGICAL Hx Neurological Disorder: No - HEENT Hx HEENT Problems: No - RENAL Hx Renal Failure: Yes - HEMATOLOGICAL/ONCOLOGICAL Hx Cirrhosis: Yes - INTEGUMENTARY Hx Dermatological Problems: No - MUSCULOSKELETAL/RHEUMATOLOGICAL Hx Musculoskeletal Disorders: No Hx Falls: Yes - GASTROINTESTINAL Hx Gastrointestinal Disorders: No - GENITOURINARY/GYNECOLOGICAL Hx Genitourinary Disorders: No - PSYCHIATRIC Hx Psychophysiologic Disorder: No Hx Depression: Yes Hx Substance Use: No - SURGICAL HISTORY Hx Surgeries: Yes Hx Cholecystectomy: Yes - ANESTHESIA Hx Anesthesia: Yes Meds Allergies/Adverse Reactions: Allergies Allergy/AdvReac Type Severity Reaction Status Date / Time No Known Allergies Allergy Verified 04/03/18 14:56 - Medications Medications: Current Medications Albuterol/Ipratropium (Duoneb 3 Mg/0.5 Mg (3 Ml) Ud) 3 ml IH [id number] Last Admin: 04/04/18 13:09 Dose: 3 ml Albuterol/Ipratropium (Duoneb 3 Mg/0.5 Mg (3 Ml) Ud) 3 ml IH Q2H PRN PRN Reason: Shortness of Breath Alprazolam (Xanax) 0.25 mg PO TID PRN; Protocol PRN Reason: anxiety/restlessness Stop: 04/11/18 18:01 Pantoprazole Sodium (Protonix 40mg Ivpb) 40 mg in 100 mls @ 20 mls/hr IVPB .Q5H MAKAYLA Last Admin: 04/04/18 11:00 Dose: 20 mls/hr Sodium Bicarbonate 150 meq/ (Dextrose) 1,150 mls @ 100 mls/hr IV .[id number] [email or web address] Last Admin: 04/04/18 06:52 Dose: 100 mls/hr Octreotide Acetate 1,250 mcg/ (Dextrose) 252.5 mls @ 5.05 mls/hr IV .Q24H [id number]; Protocol Last Admin: 04/03/18 19:14 Dose: 25 mcg/hr, 5.05 mls/hr Trazodone HCl (Desyrel) 50 mg PO HS MAKAYLA Results - Vital Signs Recent Vital Signs: Last Vital Signs Temp 97.5 F L 04/04/18 11:16 Pulse 71 04/04/18 11:45 Resp 15 04/04/18 11:45 BP 125/48 L 04/04/18 11:45 Pulse Ox 91 L 04/04/18 08:30 - Labs Result Diagrams: 04/04/18 13:10 04/04/18 04:14 Labs: Laboratory Results - last 24 hr 04/03/18 04/03/18 04/03/18 15:44 15:44 15:44 WBC RBC Hgb Hct MCV MCH MCHC RDW Plt Count MPV Gran % Lymph % (Auto) [place] % (Auto) Eos % (Auto) Baso % (Auto) Gran # Lymph # (Auto) [place] # (Auto) Eos # (Auto) Baso # (Auto) Retic Count Haptoglobin PT 13.2 H INR 1.15 APTT 30.7 pCO2 pO2 HCO3 ABG pH ABG Total CO2 ABG O2 Saturation ABG O2 Content ABG Base Excess ABG Hemoglobin ABG Carboxyhemoglobin POC ABG HHb (Measured) ABG Methemoglobin ABG O2 Capacity Hgb O2 Saturation FiO2 Sodium 133 Potassium 5.0 Chloride 107 Carbon Dioxide 11 L Anion Gap 20 BUN 102 H Creatinine 7.4 H* Est GFR ( Amer) 7 Est GFR (Non-Af Amer) 6 POC Glucose (mg/dL) Random Glucose 105 Calcium 7.9 L Phosphorus 9.7 H Magnesium 3.2 H Iron TIBC % Saturation Ferritin Total Bilirubin 1.9 H AST 50 H ALT 31 Alkaline Phosphatase 166 H Ammonia 39 H Lactate Dehydrogenase 518 Total Creatine Kinase 291 H CK-MB (CK-2) 5.0 H CK-MB (CK-2) % 1.7 L Troponin I 0.11 NT-Pro-B Natriuret Pep 35943 H Total Protein 6.3 Albumin 2.6 L Globulin 3.7 Albumin/Globulin Ratio 0.7 L Vitamin B12 Folate Procalcitonin Free T4 Total T3 TSH 3rd Generation Urine Color Urine Appearance Urine pH Ur Specific [place] Urine Protein Urine Glucose (UA) Urine Ketones Urine Blood Urine Nitrate Urine Bilirubin Urine Urobilinogen Ur Leukocyte Esterase Urine RBC Urine WBC Ur Epithelial Cells Urine Bacteria Ur Random Creatinine Ur Random Sodium Ur Random Urea Nitrogn Urine Opiates Screen Urine Methadone Screen Ur Barbiturates Screen Ur Phencyclidine Scrn Ur Amphetamines Screen U Benzodiazepines Scrn U Oth Cocaine Metabols U Cannabinoids Screen Alcohol, Quantitative Blood Type Blood Type Confirm Antibody Screen Crossmatch BBK History Checked 04/03/18 04/03/18 04/03/18 15:44 16:45 17:39 WBC 10.0 RBC 1.08 L Hgb 2.3 L* Hct 8.1 L* MCV 75.0 L MCH 21.3 L MCHC 28.4 L RDW 24.1 H Plt Count 164 MPV 8.9 Gran % 79.5 H Lymph % (Auto) 10.4 L [place] % (Auto) 7.4 H Eos % (Auto) 2.5 Baso % (Auto) 0.2 Gran # 7.92 H Lymph # (Auto) 1.0 L [place] # (Auto) 0.7 H Eos # (Auto) 0.3 Baso # (Auto) 0.02 Retic Count Haptoglobin PT INR APTT pCO2 pO2 HCO3 ABG pH ABG Total CO2 ABG O2 Saturation ABG O2 Content ABG Base Excess ABG Hemoglobin ABG Carboxyhemoglobin POC ABG HHb (Measured) ABG Methemoglobin ABG O2 Capacity Hgb O2 Saturation FiO2 Sodium Potassium Chloride Carbon Dioxide Anion Gap BUN Creatinine Est GFR ( Amer) Est GFR (Non-Af Amer) POC Glucose (mg/dL) Random Glucose Calcium Phosphorus Magnesium Iron TIBC % Saturation Ferritin Total Bilirubin AST ALT Alkaline Phosphatase Ammonia Lactate Dehydrogenase Total Creatine Kinase CK-MB (CK-2) CK-MB (CK-2) % Troponin I NT-Pro-B Natriuret Pep Total Protein Albumin Globulin Albumin/Globulin Ratio Vitamin B12 Folate Procalcitonin Free T4 Total T3 TSH 3rd Generation 6.37 H Urine Color Yellow Urine Appearance Slight-cloudy Urine pH 5.0 Ur Specific [place] >= 1.030 Urine Protein Trace H Urine Glucose (UA) Negative Urine Ketones Trace H Urine Blood Moderate H Urine Nitrate Negative Urine Bilirubin Small H Urine Urobilinogen 0.2 Ur Leukocyte Esterase Small H Urine RBC 5 - 10 H Urine WBC 1 - 3 Ur Epithelial Cells 3 - 4 Urine Bacteria Large Ur Random Creatinine Ur Random Sodium Ur Random Urea Nitrogn Urine Opiates Screen Urine Methadone Screen Ur Barbiturates Screen Ur Phencyclidine Scrn Ur Amphetamines Screen U Benzodiazepines Scrn U Oth Cocaine Metabols U Cannabinoids Screen Alcohol, Quantitative < 10 Blood Type Blood Type Confirm Antibody Screen Crossmatch BBK History Checked 04/03/18 04/03/18 04/03/18 17:39 17:41 17:44 WBC RBC Hgb Hct MCV MCH MCHC RDW Plt Count MPV Gran % Lymph % (Auto) [place] % (Auto) Eos % (Auto) Baso % (Auto) Gran # Lymph # (Auto) [place] # (Auto) Eos # (Auto) Baso # (Auto) Retic Count Haptoglobin PT INR APTT pCO2 22 L pO2 114.0 H HCO3 9.9 L* ABG pH 7.26 L ABG Total CO2 10.6 L ABG O2 Saturation ABG O2 Content ABG Base Excess -15.1 L ABG Hemoglobin < 3.0 L ABG Carboxyhemoglobin POC ABG HHb (Measured) ABG Methemoglobin ABG O2 Capacity Hgb O2 Saturation FiO2 21.0 Sodium Potassium Chloride Carbon Dioxide Anion Gap BUN Creatinine Est GFR ( Amer) Est GFR (Non-Af Amer) POC Glucose (mg/dL) Random Glucose Calcium Phosphorus Magnesium Iron TIBC % Saturation Ferritin Total Bilirubin AST ALT Alkaline Phosphatase Ammonia Lactate Dehydrogenase Total Creatine Kinase CK-MB (CK-2) CK-MB (CK-2) % Troponin I NT-Pro-B Natriuret Pep Total Protein Albumin Globulin Albumin/Globulin Ratio Vitamin B12 Folate Procalcitonin Free T4 Total T3 TSH 3rd Generation Urine Color Urine Appearance Urine pH Ur Specific [place] Urine Protein Urine Glucose (UA) Urine Ketones Urine Blood Urine Nitrate Urine Bilirubin Urine Urobilinogen Ur Leukocyte Esterase Urine RBC Urine WBC Ur Epithelial Cells Urine Bacteria Ur Random Creatinine Ur Random Sodium Ur Random Urea Nitrogn Urine Opiates Screen Negative Urine Methadone Screen Negative Ur Barbiturates Screen Negative Ur Phencyclidine Scrn Negative Ur Amphetamines Screen Negative U Benzodiazepines Scrn Negative U Oth Cocaine Metabols Negative U Cannabinoids Screen Negative Alcohol, Quantitative Blood Type B NEGATIVE Blood Type Confirm Antibody Screen Negative Crossmatch See Detail BBK History Checked No verified bt 04/03/18 04/03/18 04/03/18 18:13 18:13 18:15 WBC RBC Hgb Hct MCV MCH MCHC RDW Plt Count MPV Gran % Lymph % (Auto) [place] % (Auto) Eos % (Auto) Baso % (Auto) Gran # Lymph # (Auto) [place] # (Auto) Eos # (Auto) Baso # (Auto) Retic Count 5.63 H Haptoglobin PT INR APTT pCO2 pO2 HCO3 ABG pH ABG Total CO2 ABG O2 Saturation ABG O2 Content ABG Base Excess ABG Hemoglobin ABG Carboxyhemoglobin POC ABG HHb (Measured) ABG Methemoglobin ABG O2 Capacity Hgb O2 Saturation FiO2 Sodium Potassium Chloride Carbon Dioxide Anion Gap BUN Creatinine Est GFR ( Amer) Est GFR (Non-Af Amer) POC Glucose (mg/dL) Random Glucose Calcium Phosphorus Magnesium Iron 19 L TIBC 338 % Saturation 6 L Ferritin 16.1 Total Bilirubin AST ALT Alkaline Phosphatase Ammonia Lactate Dehydrogenase Total Creatine Kinase CK-MB (CK-2) CK-MB (CK-2) % Troponin I NT-Pro-B Natriuret Pep Total Protein Albumin Globulin Albumin/Globulin Ratio Vitamin B12 Folate Procalcitonin Free T4 Total T3 TSH 3rd Generation Urine Color Urine Appearance Urine pH Ur Specific [place] Urine Protein Urine Glucose (UA) Urine Ketones Urine Blood Urine Nitrate Urine Bilirubin Urine Urobilinogen Ur Leukocyte Esterase Urine RBC Urine WBC Ur Epithelial Cells Urine Bacteria Ur Random Creatinine Ur Random Sodium Ur Random Urea Nitrogn Urine Opiates Screen Urine Methadone Screen Ur Barbiturates Screen Ur Phencyclidine Scrn Ur Amphetamines Screen U Benzodiazepines Scrn U Oth Cocaine Metabols U Cannabinoids Screen Alcohol, Quantitative Blood Type Blood Type Confirm Antibody Screen Crossmatch BBK History Checked 04/03/18 04/03/18 04/03/18 18:50 19:00 19:00 WBC RBC Hgb Hct MCV MCH MCHC RDW Plt Count MPV Gran % Lymph % (Auto) [place] % (Auto) Eos % (Auto) Baso % (Auto) Gran # Lymph # (Auto) [place] # (Auto) Eos # (Auto) Baso # (Auto) Retic Count Haptoglobin PT INR APTT pCO2 pO2 HCO3 ABG pH ABG Total CO2 ABG O2 Saturation ABG O2 Content ABG Base Excess ABG Hemoglobin ABG Carboxyhemoglobin POC ABG HHb (Measured) ABG Methemoglobin ABG O2 Capacity Hgb O2 Saturation FiO2 Sodium Potassium Chloride Carbon Dioxide Anion Gap BUN Creatinine Est GFR ( Amer) Est GFR (Non-Af Amer) POC Glucose (mg/dL) Random Glucose Calcium Phosphorus Magnesium Iron TIBC % Saturation Ferritin Total Bilirubin AST ALT Alkaline Phosphatase Ammonia Lactate Dehydrogenase Total Creatine Kinase CK-MB (CK-2) CK-MB (CK-2) % Troponin I NT-Pro-B Natriuret Pep Total Protein Albumin Globulin Albumin/Globulin Ratio Vitamin B12 950 H Folate 13.3 Procalcitonin 0.62 H Free T4 Total T3 TSH 3rd Generation Urine Color Urine Appearance Urine pH Ur Specific [place] Urine Protein Urine Glucose (UA) Urine Ketones Urine Blood Urine Nitrate Urine Bilirubin Urine Urobilinogen Ur Leukocyte Esterase Urine RBC Urine WBC Ur Epithelial Cells Urine Bacteria Ur Random Creatinine Ur Random Sodium Ur Random Urea Nitrogn Urine Opiates Screen Urine Methadone Screen Ur Barbiturates Screen Ur Phencyclidine Scrn Ur Amphetamines Screen U Benzodiazepines Scrn U Oth Cocaine Metabols U Cannabinoids Screen Alcohol, Quantitative Blood Type Blood Type Confirm B NEGATIVE Antibody Screen Crossmatch BBK History Checked 04/03/18 04/03/18 04/04/18 19:00 22:58 00:40 WBC 9.9 RBC 1.38 L Hgb 3.4 L* Hct 11.1 L* MCV 80.4 D MCH 24.6 L MCHC 30.6 L RDW 26.0 H Plt Count 164 MPV 8.4 Gran % Lymph % (Auto) [place] % (Auto) Eos % (Auto) Baso % (Auto) Gran # Lymph # (Auto) [place] # (Auto) Eos # (Auto) Baso # (Auto) Retic Count Haptoglobin 63.4 PT INR APTT pCO2 pO2 HCO3 ABG pH ABG Total CO2 ABG O2 Saturation ABG O2 Content ABG Base Excess ABG Hemoglobin ABG Carboxyhemoglobin POC ABG HHb (Measured) ABG Methemoglobin ABG O2 Capacity Hgb O2 Saturation FiO2 Sodium 131 L Potassium 5.4 H Chloride 106 Carbon Dioxide 13 L Anion Gap 18 BUN 102 H Creatinine 7.0 H Est GFR ( Amer) 7 Est GFR (Non-Af Amer) 6 POC Glucose (mg/dL) Random Glucose 120 H Calcium 7.6 L Phosphorus Magnesium Iron TIBC % Saturation Ferritin Total Bilirubin AST ALT Alkaline Phosphatase Ammonia Lactate Dehydrogenase Total Creatine Kinase CK-MB (CK-2) CK-MB (CK-2) % Troponin I NT-Pro-B Natriuret Pep Total Protein Albumin Globulin Albumin/Globulin Ratio Vitamin B12 Folate Procalcitonin Free T4 Total T3 TSH 3rd Generation Urine Color Urine Appearance Urine pH Ur Specific [place] Urine Protein Urine Glucose (UA) Urine Ketones Urine Blood Urine Nitrate Urine Bilirubin Urine Urobilinogen Ur Leukocyte Esterase Urine RBC Urine WBC Ur Epithelial Cells Urine Bacteria Ur Random Creatinine Ur Random Sodium Ur Random Urea Nitrogn Urine Opiates Screen Urine Methadone Screen Ur Barbiturates Screen Ur Phencyclidine Scrn Ur Amphetamines Screen U Benzodiazepines Scrn U Oth Cocaine Metabols U Cannabinoids Screen Alcohol, Quantitative Blood Type Blood Type Confirm Antibody Screen Crossmatch BBK History Checked 04/04/18 04/04/18 04/04/18 01:30 02:17 04:14 WBC 8.8 RBC 2.06 L Hgb 5.4 L* D Hct 16.9 L* MCV 82.0 MCH 26.2 MCHC 32.0 RDW 21.1 H Plt Count 138 MPV 8.6 Gran % 75.3 H Lymph % (Auto) 11.4 L [place] % (Auto) 8.9 H Eos % (Auto) 4.2 Baso % (Auto) 0.2 Gran # 6.61 H Lymph # (Auto) 1.0 L [place] # (Auto) 0.8 H Eos # (Auto) 0.4 Baso # (Auto) 0.02 Retic Count Haptoglobin PT INR APTT pCO2 24 L pO2 164.0 H HCO3 10.8 L ABG pH 7.26 L ABG Total CO2 11.5 L ABG O2 Saturation 98.9 H ABG O2 Content 7.2 L ABG Base Excess -15.0 L ABG Hemoglobin 5.0 L ABG Carboxyhemoglobin 2.2 H POC ABG HHb (Measured) 1.1 ABG Methemoglobin 1.2 ABG O2 Capacity 7.3 L Hgb O2 Saturation 95.5 FiO2 32.0 Sodium Potassium Chloride Carbon Dioxide Anion Gap BUN Creatinine Est GFR ( Amer) Est GFR (Non-Af Amer) POC Glucose (mg/dL) 154 H Random Glucose Calcium Phosphorus Magnesium Iron TIBC % Saturation Ferritin Total Bilirubin AST ALT Alkaline Phosphatase Ammonia Lactate Dehydrogenase Total Creatine Kinase CK-MB (CK-2) CK-MB (CK-2) % Troponin I NT-Pro-B Natriuret Pep Total Protein Albumin Globulin Albumin/Globulin Ratio Vitamin B12 Folate Procalcitonin Free T4 Total T3 TSH 3rd Generation Urine Color Urine Appearance Urine pH Ur Specific [place] Urine Protein Urine Glucose (UA) Urine Ketones Urine Blood Urine Nitrate Urine Bilirubin Urine Urobilinogen Ur Leukocyte Esterase Urine RBC Urine WBC Ur Epithelial Cells Urine Bacteria Ur Random Creatinine Ur Random Sodium Ur Random Urea Nitrogn Urine Opiates Screen Urine Methadone Screen Ur Barbiturates Screen Ur Phencyclidine Scrn Ur Amphetamines Screen U Benzodiazepines Scrn U Oth Cocaine Metabols U Cannabinoids Screen Alcohol, Quantitative Blood Type Blood Type Confirm Antibody Screen Crossmatch BBK History Checked 04/04/18 04/04/18 04/04/18 04:14 04:24 06:30 WBC RBC Hgb Hct MCV MCH MCHC RDW Plt Count MPV Gran % Lymph % (Auto) [place] % (Auto) Eos % (Auto) Baso % (Auto) Gran # Lymph # (Auto) [place] # (Auto) Eos # (Auto) Baso # (Auto) Retic Count Haptoglobin PT INR APTT pCO2 pO2 HCO3 ABG pH ABG Total CO2 ABG O2 Saturation ABG O2 Content ABG Base Excess ABG Hemoglobin ABG Carboxyhemoglobin POC ABG HHb (Measured) ABG Methemoglobin ABG O2 Capacity Hgb O2 Saturation FiO2 Sodium 132 Potassium 5.3 H Chloride 106 Carbon Dioxide 13 L Anion Gap 18 BUN 101 H Creatinine 7.1 H Est GFR ( Amer) 7 Est GFR (Non-Af Amer) 6 POC Glucose (mg/dL) 149 H Random Glucose 131 H Calcium 7.8 L Phosphorus 10.1 H Magnesium 3.3 H Iron TIBC % Saturation Ferritin Total Bilirubin 2.7 H AST 42 H ALT 36 Alkaline Phosphatase 153 H Ammonia Lactate Dehydrogenase Total Creatine Kinase CK-MB (CK-2) CK-MB (CK-2) % Troponin I NT-Pro-B Natriuret Pep Total Protein 6.2 Albumin 2.7 L Globulin 3.5 Albumin/Globulin Ratio 0.8 L Vitamin B12 Folate Procalcitonin Free T4 Total T3 TSH 3rd Generation Urine Color Urine Appearance Urine pH Ur Specific [place] Urine Protein Urine Glucose (UA) Urine Ketones Urine Blood Urine Nitrate Urine Bilirubin Urine Urobilinogen Ur Leukocyte Esterase Urine RBC Urine WBC Ur Epithelial Cells Urine Bacteria Ur Random Creatinine 280 Ur Random Sodium 18 Ur Random Urea Nitrogn 301 Urine Opiates Screen Urine Methadone Screen Ur Barbiturates Screen Ur Phencyclidine Scrn Ur Amphetamines Screen U Benzodiazepines Scrn U Oth Cocaine Metabols U Cannabinoids Screen Alcohol, Quantitative Blood Type Blood Type Confirm Antibody Screen Crossmatch BBK History Checked 04/04/18 04/04/18 13:10 13:10 WBC 9.6 RBC 2.27 L Hgb 5.9 L* Hct 18.4 L* MCV 81.1 MCH 26.0 MCHC 32.1 RDW 20.0 H Plt Count 121 MPV 8.1 Gran % 77.2 H Lymph % (Auto) 9.9 L [place] % (Auto) 9.1 H Eos % (Auto) 3.7 Baso % (Auto) 0.1 Gran # 7.39 H Lymph # (Auto) 1.0 L [place] # (Auto) 0.9 H Eos # (Auto) 0.4 Baso # (Auto) 0.01 Retic Count Haptoglobin PT INR APTT pCO2 pO2 HCO3 ABG pH ABG Total CO2 ABG O2 Saturation ABG O2 Content ABG Base Excess ABG Hemoglobin ABG Carboxyhemoglobin POC ABG HHb (Measured) ABG Methemoglobin ABG O2 Capacity Hgb O2 Saturation FiO2 Sodium Potassium Chloride Carbon Dioxide Anion Gap BUN Creatinine Est GFR ( Amer) Est GFR (Non-Af Amer) POC Glucose (mg/dL) Random Glucose Calcium Phosphorus Magnesium Iron TIBC % Saturation Ferritin Total Bilirubin AST ALT Alkaline Phosphatase Ammonia Lactate Dehydrogenase Total Creatine Kinase CK-MB (CK-2) CK-MB (CK-2) % Troponin I NT-Pro-B Natriuret Pep Total Protein Albumin Globulin Albumin/Globulin Ratio Vitamin B12 Folate Procalcitonin Free T4 0.91 Total T3 0.53 L TSH 3rd Generation Urine Color Urine Appearance Urine pH Ur Specific [place] Urine Protein Urine Glucose (UA) Urine Ketones Urine Blood Urine Nitrate Urine Bilirubin Urine Urobilinogen Ur Leukocyte Esterase Urine RBC Urine WBC Ur Epithelial Cells Urine Bacteria Ur Random Creatinine Ur Random Sodium Ur Random Urea Nitrogn Urine Opiates Screen Urine Methadone Screen Ur Barbiturates Screen Ur Phencyclidine Scrn Ur Amphetamines Screen U Benzodiazepines Scrn U Oth Cocaine Metabols U Cannabinoids Screen Alcohol, Quantitative Blood Type Blood Type Confirm Antibody Screen Crossmatch BBK History Checked
--- NOTE | 2018-04-04 16:10 | US ---
HISTORY: Leg pain and swelling. Evaluate for DVT PHYSICIAN(S): Ramsey Ny MD. TECHNIQUE: Duplex sonography and color-flow Doppler with graded compression were used to evaluate the deep venous systems of both lower extremities. The exam is extremely limited by body habitus and the patient's inability to cooperate. FINDINGS: The visualized deep venous systems of both lower extremities are sonographically normal and compressible. Normal wave forms and augmentation are seen. There is no sonographic evidence for deep venous thrombosis in the visualized segments of both lower extremities. IMPRESSION: No sonographic evidence for deep venous thrombosis in the visualized segments of both lower extremities. Very limited study
--- NOTE | 2018-04-04 16:14 | CP.PCM.PN ---
<Nhung Anne - Last Filed: 04/04/18 16:11> Subjective - Date & Time of Evaluation Date of Evaluation: 04/04/18 Time of Evaluation: 09:44 - Subjective Subjective: Nhung Anne Y1 Hospital Progress Note Patient seen and examined this morning at bedside. No acute events reported overnight. S/p 5 units PRBC. Denies CP, SOB, abdominal pain and leg pain. Plan for HD tomorrow if urine output not improved. Plan for GI endoscopy in future. Objective - Vital Signs/Intake and Output Vital Signs (last 24 hours): Temp Pulse Resp BP Pulse Ox 97.5 F L 71 15 125/48 L 91 L 04/04/18 11:16 04/04/18 11:45 04/04/18 11:45 04/04/18 11:45 04/04/18 08:30 Intake and Output: 04/04/18 04/04/18 06:59 18:59 Intake Total 3841 Output Total 160 Balance 3681 - Medications Medications: Current Medications Albuterol/Ipratropium (Duoneb 3 Mg/0.5 Mg (3 Ml) Ud) 3 ml IH [id number] [facility] Last Admin: 04/04/18 13:09 Dose: 3 ml Albuterol/Ipratropium (Duoneb 3 Mg/0.5 Mg (3 Ml) Ud) 3 ml IH Q2H PRN PRN Reason: Shortness of Breath Alprazolam (Xanax) 0.25 mg PO TID PRN; Protocol PRN Reason: anxiety/restlessness Stop: 04/11/18 18:01 Pantoprazole Sodium (Protonix 40mg Ivpb) 40 mg in 100 mls @ 20 mls/hr IVPB .Q5H [facility] Last Admin: 04/04/18 11:00 Dose: 20 mls/hr Sodium Bicarbonate 150 meq/ (Dextrose) 1,150 mls @ 100 mls/hr IV .[id number] [facility]KAY[facility] Last Admin: 04/04/18 06:52 Dose: 100 mls/hr Octreotide Acetate 1,250 mcg/ (Dextrose) 252.5 mls @ 5.05 mls/hr IV .Q24H MAKAYLA; Protocol Last Admin: 04/03/18 19:14 Dose: 25 mcg/hr, 5.05 mls/hr Iron Sucrose 100 mg/ Sodium (Chloride) 105 mls @ 210 mls/hr IVPB DAILY MAKAYLA Stop: 04/15/18 10:01 Trazodone HCl (Desyrel) 50 mg PO HS MAKAYLA - Labs Labs: 04/04/18 13:10 04/04/18 04:14 PT 13.2 SECONDS (9.4-12.5) H 04/03/18 15:44 INR 1.15 04/03/18 15:44 APTT 30.7 Seconds (25.1-36.5) 04/03/18 15:44 - Additional Findings Additional findings: - Constitutional Appears: No Acute Distress - Head Exam Head Exam: NORMAL INSPECTION, ATRAUMATIC - Eye Exam Eye Exam: EOMI, PERRL Additional comments: conjunctival pallor noted - ENT Exam ENT Exam: Mucous Membranes Moist, Normal Exam - Neck Exam Neck exam: Positive for: Normal Inspection - Respiratory Exam Respiratory Exam: Clear to Auscultation Bilateral. absent: Rales, Rhonchi, Wheezes, respiratory distress - Cardiovascular Exam Cardiovascular Exam: Regular rhythm, +S1, +S2. absent: Systolic Murmur - GI/Abdominal Exam GI & Abdominal Exam: Soft. Bowel sounds heard in all 4 quadrants absent: Distended, Guarding, Rebound, Tenderness - Extremities Exam Extremities exam: Positive for: pedal edema Additional comments: 3+ edema diffuse noted on both lower extremities - Neurological Exam Neurological exam: Alert, CN II-XII Intact, Oriented x3 - Skin Skin Exam: Dry, Intact and Pallor Assessment and Plan - Assessment and Plan (Free Text) Assessment: Patient is a 52 yo F with PMH liver failure, morbid obesity, and EtOH abuse presents to [facility] for worsening weakness. Patient likely to have a GI bleed with Hgb of 2.3 and guaiac positive exam. Patient is also noted to be in renal failure. Plan: Microcytic Anemia -Hg is 5.9 today s/p 5 units PRBC, 2units FFP -2 additional PRBC pending -possible 2/2 to upper GI bleed from PUD - will need endoscopy to confirm. Patient admits to taking motrin regularly -iron studies shows likely iron deficiency -protonix drip -octreotide drip -Head CT is unremarkable -CTAP shows adenopathy of the hepatic gastric ligament -Extremity US shows no DVT -CBC Q6 -NPO, accuchecks q6h -panculture pending -GI on consult, Dr. Melo Acute Renal Failure -Cr 7.4, baseline unknown -Renal US is unremarkable -urine output of 160cc today -HD planned for tomorrow if urine output doesn't improve -Strict I's and O's -Repeat BMP pending -consider lasix of CXR shows worsening congestion -Nephrology on consult, Dr. Salmeron Metabolic Acidosis -initial pH 7.26, HCO3 11, pCO2 22 -Repeat ABG shows anion gap metabolic acidosis -increased bicarb drip to 150cc Elevated BNP -BNP 80416 -Echo final read is pending Depression -Psych on consult, Dr. Ramos -continue trazodone PPX -protonix, SCDs Patient seen and case discussed with Dr. Ojeda <Sagrario Ojeda - Last Filed: 04/05/18 07:52> Objective - Vital Signs/Intake and Output Vital Signs (last 24 hours): Temp Pulse Resp BP Pulse Ox 98.2 F 65 24 109/56 L 98 04/05/18 05:30 04/05/18 05:30 04/05/18 05:30 04/05/18 05:30 04/05/18 05:30 - Medications Medications: Current Medications Albuterol/Ipratropium (Duoneb 3 Mg/0.5 Mg (3 Ml) Ud) 3 ml IH [id number] [facility] Last Admin: 04/05/18 03:00 Dose: Not Given Albuterol/Ipratropium (Duoneb 3 Mg/0.5 Mg (3 Ml) Ud) 3 ml IH Q2H PRN PRN Reason: Shortness of Breath Alprazolam (Xanax) 0.25 mg PO TID PRN; Protocol PRN Reason: anxiety/restlessness Stop: 04/11/18 18:01 Last Admin: 04/04/18 19:25 Dose: 0.25 mg Pantoprazole Sodium (Protonix 40mg Ivpb) 40 mg in 100 mls @ 20 mls/hr IVPB .Q5H [facility] Last Admin: 04/05/18 05:54 Dose: 20 mls/hr Sodium Bicarbonate 150 meq/ (Dextrose) 1,150 mls @ 100 mls/hr IV .[id number] [facility] Last Admin: 04/05/18 05:49 Dose: 100 mls/hr Octreotide Acetate 1,250 mcg/ (Dextrose) 252.5 mls @ 5.05 mls/hr IV .Q24H [facility]; Protocol Last Admin: 04/03/18 19:14 Dose: 25 mcg/hr, 5.05 mls/hr Iron Sucrose 100 mg/ Sodium (Chloride) 105 mls @ 210 mls/hr IVPB DAILY MAKAYLA Stop: 04/15/18 10:01 Trazodone HCl (Desyrel) 50 mg PO HS [facility]KAYLA Last Admin: 04/04/18 22:00 Dose: Not Given - Labs Labs: 04/05/18 06:30 04/05/18 06:30 PT 13.2 SECONDS (9.4-12.5) H 04/03/18 15:44 INR 1.15 04/03/18 15:44 APTT 30.7 Seconds (25.1-36.5) 04/03/18 15:44 Attending/Attestation - Attestation I have personally seen and examined this patient.: Yes I have fully participated in the care of the patient.: Yes I have reviewed all pertinent clinical information, including history, physical exam and plan: Yes Notes (Text): 04/05/18 07:48 Medical record note made by the resident after discussion with my direction and input after the patient was personally seen and examined by me. I have reviewed the chart and agree that the record accurately reflects by personal performance of the history, physical exam, data review, and medical decision-making, in the course for the patient. I have also personally directed the plan of care. 52 yo F with PMH with liver failure, morbid obesity, alcohol abuse and depression was admitted 04/03/18 with worsening fatigue, weakness, and dark stools. Patient was found to have severe microcytic hypochromic anemia due to ongoing chronic GI bleeding, acute renal failure and severe metabolic acidosis. Hemoglobin was 2.3, Sheis SP 5 unit PRBC,Hemoglobin 5.9, there is no active bleeding Continue PPI infusion, octeroid infusion and PRBC transfusion, GI evaluation is appreciated. We will watch for fluid overload as BNP is elevated but patient lung sound are clear. Creatinin is unchanged since yesterday on Bicarbobate infusion, no evidence of hydronephrosis. Discussed with nephrology, may need hemodialysis if renal function will not improve. Management plan was discussed in detail with patient and family. Education was provided. 04/05/18 07:51
[2018-04-04 17:29] LABS: HEPATITIS B SURFACE AG Negative (NEGATIVE)
[2018-04-04 17:35] LABS: HEPATITIS A IGM NEGATIVE (NEGATIVE); HEPATITIS B CORE AB NEGATIVE (NEGATIVE)
[2018-04-04 17:47] LABS: HEPATITIS C ANTIBODY NEGATIVE (NEGATIVE)
--- NOTE | 2018-04-04 18:24 | CON ---
DATE: 04/04/2018 GASTROENTEROLOGY CONSULTATION REQUESTING PHYSICIAN: Dr. Ojeda. REASON FOR CONSULTATION: I have been asked to see this 52-year-old female with history of morbid obesity, alcoholic liver disease with history of liver failure, history of gastric bariatric surgery for weight loss, who comes to the hospital with severe fatigue, lethargy, and several days of dark tarry bowel movements. The patient states that she quit drinking several years ago. She denies any illicit drug use. She is morbidly obese and essentially bed-bound. Routine workup in the emergency room showed her hemoglobin to be 2.3 with a BUN of 102 and a creatinine of 7.4 with a phosphorus of 9.7. She denies any nausea, vomiting or hematemesis. PAST MEDICAL HISTORY: As above. SOCIAL HISTORY: She is a former alcoholic. She quit several years ago. She denies drug use. REVIEW OF SYSTEMS: Fourteen-point review of systems is notable for morbid obesity, alcoholism, alcoholic liver disease with liver failure. PHYSICAL EXAMINATION: GENERAL: Morbidly obese female, lying in bed, in no acute distress. She weighs 380 pounds. Her BMI is 54.6. HEENT: Reveal sclerae to be white. Conjunctivae pale. NECK: Supple. CHEST: Reveals distant breath sounds. HEART: Reveals a regular rate and rhythm. ABDOMEN: Obese, soft, nontender. EXTREMITIES: Show 2-3+ pedal edema with chronic stasis changes. LABORATORY DATA: Reveal hemoglobin of 5.4 after 3 units of packed red blood cells. White blood cell count of 8.8, platelet count of 138,000, reticulocyte count of 5.63. Haptoglobin of 63.4. Coags reveal PT of 13.2, INR of 1.15. Chemistries reveal BUN of 101, creatinine of 7.1, blood sugar 149, phosphorus of 10.1, total bilirubin 2.7, AST 42, alkaline phosphatase of 153. IMPRESSION: A 52-year-old female with morbid obesity with profound anemia, acute renal failure, anasarca and ascites on CT scan of the abdomen and pelvis without any obvious masses throughout her gastrointestinal tract with several days of history of melena. RECOMMENDATIONS: 1. We would transfuse packed red blood cells to a hematocrit of 27-30%. 2. Continue PPI. 3. Renal evaluation for possible hemodialysis. 4. We will schedule the patient for an upper endoscopy tentatively in the morning if her hemoglobin improves. Be Melo MD
[2018-04-04 19:04] LABS: CALCIUM 7.4 mg/dL (8.4-10.5)
[2018-04-04 19:08] LABS: HEMOGLOBIN 7.5 g/dL (12.0-16.0); MEAN CELL VOLUME 82.5 fl (80.0-105.0); MEAN CORPUSCULAR HEMOGLOBIN 27.3 pg (25.0-35.0); MEAN PLATELET VOLUME 8.3 fl (7.0-11.0); RBC 2.75 10^6/uL (3.5-6.1); RED CELL DISTRIBUTION WIDTH 19.5 % (11.5-14.5); WHITE BLOOD COUNT 10.3 10^3/uL (4.5-11.0)
--- NOTE | 2018-04-04 19:35 | CON ---
DATE: 04/04/2018 HISTORY OF PRESENT ILLNESS: In short, the patient is a 52-year-old female, multiple medical issues. The patient was admitted into ICU for generalized weakness and fatigue. The patient has worsening of bilateral lower extremity edema. Psych consult was called for evaluation of depressive symptoms, inability to function. The patient was seen and examined. The patient presented to be depressed and tearful. The patient lost her mother as well as her child as well as her job in 2013. Since that time, the patient is struggling. The patient reported that she does not have any thoughts of killing herself, but at times, the patient feels helpless because of her medical condition as well as losing her job and multiple family members. The patient had never been admitted to the psychiatric inpatient unit. The patient never tried to kill herself in the past. The patient was opened to start trazodone at the nighttime for depression as well as Xanax for anxiety. The patient is not psychotic. Labs reviewed. Medications reviewed. Treatment plan was discussed in details. MENTAL STATUS EXAMINATION: The patient presented to be alert and oriented, pleasant, at times tearful. Mood described as helpless. Affect was constricted and tearful. Mood, congruent. Thought process, coherent and goal directed. Thought content, the patient denied visual, auditory, or tactile hallucinations. Denied paranoid ideation. The patient denied thoughts of harming herself or others. Denied intent or plan. Insight and judgment seemed to be fair. Impulses are well controlled. IMPRESSION: Rule out major depressive disorder severe with no psychosis, rule out adjustment disorder, rule out mood disorder due to general medical condition, rule out anxiety due to disorder due to general medical condition. PLAN: Trazodone started, Xanax started. Risks, benefits and alternatives discussed with the patient. We will follow up and advise accordingly. Should you have any questions give me a call back. Rachel Maradiaga MD
[2018-04-05] MEDS: Albuterol-Ipratrop 3 mg / 0.5 (3 ml) UD IH SCH ×4 (03:00→20:14)
[2018-04-05] MEDS: Sodium Bicarbonate 8.4% 150 MEQ in Dextrose 5% In Water 1,000 ML IV SCH (05:49)
[2018-04-05] MEDS: Pantoprazole 40mg/100mL NS 40 MG/100 ML BAG IVPB SCH ×3 (05:54→18:57)
--- NOTE | 2018-04-05 07:07 | CP.CCUPN ---
<Charbel Perdue - Last Filed: 04/05/18 11:04> CCU Subjective - Physician Review Subjective (Free Text): Charbel Perdue PGY-1 Progress Note for ICU Patient seen and evaluated at bedside. No acute events reported overnight. Patient received 3 units PRBC yesterday and currently receiving another unit PRBC. Denies chest pain, shortness of breath, palpitations, cough, headaches, dizziness. Poor urine output overnight. CCU Objective - Vital Signs / Intake & Output Vital Signs (Last 4 hours): Vital Signs Temp Pulse Resp BP Pulse Ox 04/05/18 05:30 98.2 F 65 24 109/56 L 98 04/05/18 05:15 63 26 H 114/45 L 98 04/05/18 05:12 61 04/05/18 05:00 68 17 112/41 L 99 04/05/18 04:45 61 13 115/45 L 99 04/05/18 04:30 62 15 115/49 L 100 04/05/18 04:15 64 117/59 L 99 04/05/18 04:00 64 14 113/47 L 99 04/05/18 03:45 64 13 98/38 L 99 04/05/18 03:30 75 12 111/38 L 99 04/05/18 03:15 61 13 103/40 L 99 04/05/18 03:00 61 14 107/37 L 99 Intake and Output (Last 8hrs): Intake & Output 04/04/18 04/04/18 04/05/18 14:59 22:59 06:59 Intake Total 1620 Output Total 70 Balance 1550 Weight 172.547 kg Intake: IV 740 Left Antecubital 240 Right Antecubital 500 Blood Product 880 Output: Urine 70 2-way Urethral 70 - Physical Exam Physical Exam Limitations: Positive for: Other (Morbid obesity) Head: Positive for: Atraumatic, Normocephalic Pupils: Positive for: PERRL Extroacular Muscles: Positive for: EOMI Conjunctiva: Positive for: Normal Mouth: Positive for: Moist Mucous Membranes Pharnyx: Negative for: ERYTHEMA, EXUDATE, TONSILS ENLARGED Neck: Positive for: Normal Range of Motion Respiratory/Chest: Positive for: Clear to Auscultation, Good Air Exchange, Decreased Breath Sounds. Negative for: Respiratory Distress, Accessory Muscle Use Cardiovascular: Positive for: Regular Rate and Rhythm, Normal S1, S2. Negative for: Murmurs Abdomen: Positive for: Other (anasarca). Negative for: Tenderness, Distention, Peritoneal Signs Upper Extremity: Positive for: Normal Inspection, Other (ecchymosis in various stages of healing). Negative for: Cyanosis, Edema Lower Extremity: Positive for: Edema (elephantitis with ulcers) Neurological: Positive for: GCS=15, CN II-XII Intact, Speech Normal Skin: Positive for: Warm, Dry, Pale (improved from admission s/p transfusions). Negative for: Rashes Psychiatric: Positive for: Alert, Oriented x 3, Normal Insight, Normal Concentration, Anxious - Medications Active Medications: Active Medications Generic Name Dose Route Start Last Admin Trade Name Freq PRN Reason Stop Dose Admin Albuterol/Ipratropium 3 ml 04/03/18 20:00 04/05/18 03:00 Duoneb 3 Mg/0.5 Mg (3 Ml) Ud IH Not Given [id number] MAKAYLA Albuterol/Ipratropium 3 ml 04/03/18 18:05 Duoneb 3 Mg/0.5 Mg (3 Ml) Ud IH Q2H PRN Shortness of Breath Alprazolam 0.25 mg 04/04/18 15:44 04/04/18 19:25 Xanax PO 04/11/18 18:01 0.25 mg TID PRN Administration anxiety/restlessness Protocol Pantoprazole Sodium 40 mg in 100 mls @ 20 mls/hr 04/03/18 18:15 04/05/18 05:54 Protonix 40mg Ivpb IVPB 20 mls/hr .Q5H MAKAYLA Administration Sodium Bicarbonate 150 meq/ 1,150 mls @ 100 mls/hr 04/03/18 18:15 04/05/18 05:49 Dextrose IV 100 mls/hr .[id number] MAKAYLA Administration Octreotide Acetate 1,250 mcg/ 252.5 mls @ 5.05 mls/hr 04/03/18 18:15 04/03/18 19:14 Dextrose IV 25 mcg/hr .Q24H MAKAYLA 5.05 mls/hr Administration Protocol 25 MCG/HR Iron Sucrose 100 mg/ Sodium 105 mls @ 210 mls/hr 04/05/18 10:00 Chloride IVPB 04/15/18 10:01 DAILY MAKAYLA Trazodone HCl 50 mg 04/04/18 22:00 04/04/18 22:00 Desyrel PO Not Given HS MAKAYLA - Patient Studies Lab Studies: Microbiology Studies 04/03/18 18:35 Blood Culture - Preliminary Blood NO GROWTH AFTER 24 HOURS 04/03/18 18:30 Blood Culture - Preliminary Blood NO GROWTH AFTER 24 HOURS Lab Studies 04/05/18 04/05/18 04/04/18 Range/Units 06:13 00:18 18:39 WBC 10.3 (4.5-11.0) 10^3/uL RBC 2.75 L (3.5-6.1) 10^6/uL Hgb 7.5 L (12.0-16.0) g/dL Hct 22.7 L (36.0-48.0) % MCV 82.5 (80.0-105.0) fl MCH 27.3 (25.0-35.0) pg MCHC 33.0 (31.0-37.0) g/dl RDW 19.5 H (11.5-14.5) % Plt Count 113 L (120.0-450.0) 10^3/uL MPV 8.3 (7.0-11.0) fl Gran % (50.0-68.0) % Lymph % (Auto) (22.0-35.0) % Clayton % (Auto) (1.0-6.0) % Eos % (Auto) (1.5-5.0) % Baso % (Auto) (0.0-3.0) % Gran # (1.4-6.5) Lymph # (Auto) (1.2-3.4) Clayton # (Auto) (0.1-0.6) Eos # (Auto) (0.0-0.7) Baso # (Auto) (0.0-2.0) K/mm3 Haptoglobin (30.0-200.0) mg/dL Sodium (132-148) mmol/L Potassium (3.6-5.0) mmol/L Chloride (98-107) mmol/L Carbon Dioxide (21-33) mmol/L Anion Gap (10-20) BUN (7-21) mg/dL Creatinine (0.7-1.2) mg/dl Est GFR ( Amer) Est GFR (Non-Af Amer) POC Glucose (mg/dL) 108 113 H (65-110) mg/dL Random Glucose (70-110) mg/dL Calcium (8.4-10.5) mg/dL Ferritin ng/mL Vitamin B12 (239-931) pg/mL Folate ng/mL Procalcitonin (0.19-0.49) NG/ML Free T4 (0.78-2.19) ng/dL Total T3 (0.97-1.69) ng/mL Ur Random Creatinine mg/dL Ur Random Sodium meq/L Ur Random Urea Nitrogn mg/dL Hepatitis A IgM Ab (NEGATIVE) Hep Bs Antigen (NEGATIVE) Hep B Core IgM Ab (NEGATIVE) Hepatitis C Antibody (NEGATIVE) Blood Type Antibody Screen Crossmatch BBK History Checked 04/04/18 04/04/18 04/04/18 Range/Units 18:39 18:06 13:10 WBC 9.6 (4.5-11.0) 10^3/uL RBC 2.27 L (3.5-6.1) 10^6/uL Hgb 5.9 L* (12.0-16.0) g/dL Hct 18.4 L* (36.0-48.0) % MCV 81.1 (80.0-105.0) fl MCH 26.0 (25.0-35.0) pg MCHC 32.1 (31.0-37.0) g/dl RDW 20.0 H (11.5-14.5) % Plt Count 121 (120.0-450.0) 10^3/uL MPV 8.1 (7.0-11.0) fl Gran % 77.2 H (50.0-68.0) % Lymph % (Auto) 9.9 L (22.0-35.0) % Clayton % (Auto) 9.1 H (1.0-6.0) % Eos % (Auto) 3.7 (1.5-5.0) % Baso % (Auto) 0.1 (0.0-3.0) % Gran # 7.39 H (1.4-6.5) Lymph # (Auto) 1.0 L (1.2-3.4) Clayton # (Auto) 0.9 H (0.1-0.6) Eos # (Auto) 0.4 (0.0-0.7) Baso # (Auto) 0.01 (0.0-2.0) K/mm3 Haptoglobin (30.0-200.0) mg/dL Sodium 133 (132-148) mmol/L Potassium 5.1 H (3.6-5.0) mmol/L Chloride 105 (98-107) mmol/L Carbon Dioxide 14 L (21-33) mmol/L Anion Gap 20 (10-20) BUN 104 H (7-21) mg/dL Creatinine 7.2 H (0.7-1.2) mg/dl Est GFR ( Amer) 7 Est GFR (Non-Af Amer) 6 POC Glucose (mg/dL) 111 H (65-110) mg/dL Random Glucose 114 H (70-110) mg/dL Calcium 7.4 L (8.4-10.5) mg/dL Ferritin ng/mL Vitamin B12 (239-931) pg/mL Folate ng/mL Procalcitonin (0.19-0.49) NG/ML Free T4 (0.78-2.19) ng/dL Total T3 (0.97-1.69) ng/mL Ur Random Creatinine mg/dL Ur Random Sodium meq/L Ur Random Urea Nitrogn mg/dL Hepatitis A IgM Ab (NEGATIVE) Hep Bs Antigen (NEGATIVE) Hep B Core IgM Ab (NEGATIVE) Hepatitis C Antibody (NEGATIVE) Blood Type Antibody Screen Crossmatch BBK History Checked 04/04/18 04/04/18 04/04/18 Range/Units 13:10 13:10 11:24 WBC (4.5-11.0) 10^3/uL RBC (3.5-6.1) 10^6/uL Hgb (12.0-16.0) g/dL Hct (36.0-48.0) % MCV (80.0-105.0) fl MCH (25.0-35.0) pg MCHC (31.0-37.0) g/dl RDW (11.5-14.5) % Plt Count (120.0-450.0) 10^3/uL MPV (7.0-11.0) fl Gran % (50.0-68.0) % Lymph % (Auto) (22.0-35.0) % Clayton % (Auto) (1.0-6.0) % Eos % (Auto) (1.5-5.0) % Baso % (Auto) (0.0-3.0) % Gran # (1.4-6.5) Lymph # (Auto) (1.2-3.4) Clayton # (Auto) (0.1-0.6) Eos # (Auto) (0.0-0.7) Baso # (Auto) (0.0-2.0) K/mm3 Haptoglobin (30.0-200.0) mg/dL Sodium (132-148) mmol/L Potassium (3.6-5.0) mmol/L Chloride (98-107) mmol/L Carbon Dioxide (21-33) mmol/L Anion Gap (10-20) BUN (7-21) mg/dL Creatinine (0.7-1.2) mg/dl Est GFR ( Amer) Est GFR (Non-Af Amer) POC Glucose (mg/dL) 117 H (65-110) mg/dL Random Glucose (70-110) mg/dL Calcium (8.4-10.5) mg/dL Ferritin ng/mL Vitamin B12 (239-931) pg/mL Folate ng/mL Procalcitonin (0.19-0.49) NG/ML Free T4 0.91 (0.78-2.19) ng/dL Total T3 0.53 L (0.97-1.69) ng/mL Ur Random Creatinine mg/dL Ur Random Sodium meq/L Ur Random Urea Nitrogn mg/dL Hepatitis A IgM Ab Negative (NEGATIVE) Hep Bs Antigen Negative (NEGATIVE) Hep B Core IgM Ab Negative (NEGATIVE) Hepatitis C Antibody Negative (NEGATIVE) Blood Type Antibody Screen Crossmatch BBK History Checked 04/04/18 04/03/18 04/03/18 Range/Units 06:30 19:00 19:00 WBC (4.5-11.0) 10^3/uL RBC (3.5-6.1) 10^6/uL Hgb (12.0-16.0) g/dL Hct (36.0-48.0) % MCV (80.0-105.0) fl MCH (25.0-35.0) pg MCHC (31.0-37.0) g/dl RDW (11.5-14.5) % Plt Count (120.0-450.0) 10^3/uL MPV (7.0-11.0) fl Gran % (50.0-68.0) % Lymph % (Auto) (22.0-35.0) % Clayton % (Auto) (1.0-6.0) % Eos % (Auto) (1.5-5.0) % Baso % (Auto) (0.0-3.0) % Gran # (1.4-6.5) Lymph # (Auto) (1.2-3.4) Clayton # (Auto) (0.1-0.6) Eos # (Auto) (0.0-0.7) Baso # (Auto) (0.0-2.0) K/mm3 Haptoglobin 63.4 (30.0-200.0) mg/dL Sodium (132-148) mmol/L Potassium (3.6-5.0) mmol/L Chloride (98-107) mmol/L Carbon Dioxide (21-33) mmol/L Anion Gap (10-20) BUN (7-21) mg/dL Creatinine (0.7-1.2) mg/dl Est GFR ( Amer) Est GFR (Non-Af Amer) POC Glucose (mg/dL) (65-110) mg/dL Random Glucose (70-110) mg/dL Calcium (8.4-10.5) mg/dL Ferritin ng/mL Vitamin B12 950 H (239-931) pg/mL Folate 13.3 ng/mL Procalcitonin (0.19-0.49) NG/ML Free T4 (0.78-2.19) ng/dL Total T3 (0.97-1.69) ng/mL Ur Random Creatinine 280 mg/dL Ur Random Sodium 18 meq/L Ur Random Urea Nitrogn 301 mg/dL Hepatitis A IgM Ab (NEGATIVE) Hep Bs Antigen (NEGATIVE) Hep B Core IgM Ab (NEGATIVE) Hepatitis C Antibody (NEGATIVE) Blood Type Antibody Screen Crossmatch BBK History Checked 12/18/18 12/18/18 12/18/18 Range/Units 19:00 18:13 17:44 WBC (4.5-11.0) 10^3/uL RBC (3.5-6.1) 10^6/uL Hgb (12.0-16.0) g/dL Hct (36.0-48.0) % MCV (80.0-105.0) fl MCH (25.0-35.0) pg MCHC (31.0-37.0) g/dl RDW (11.5-14.5) % Plt Count (120.0-450.0) 10^3/uL MPV (7.0-11.0) fl Gran % (50.0-68.0) % Lymph % (Auto) (22.0-35.0) % Clayton % (Auto) (1.0-6.0) % Eos % (Auto) (1.5-5.0) % Baso % (Auto) (0.0-3.0) % Gran # (1.4-6.5) Lymph # (Auto) (1.2-3.4) Clayton # (Auto) (0.1-0.6) Eos # (Auto) (0.0-0.7) Baso # (Auto) (0.0-2.0) K/mm3 Haptoglobin (30.0-200.0) mg/dL Sodium (132-148) mmol/L Potassium (3.6-5.0) mmol/L Chloride (98-107) mmol/L Carbon Dioxide (21-33) mmol/L Anion Gap (10-20) BUN (7-21) mg/dL Creatinine (0.7-1.2) mg/dl Est GFR ( Amer) Est GFR (Non-Af Amer) POC Glucose (mg/dL) (65-110) mg/dL Random Glucose (70-110) mg/dL Calcium (8.4-10.5) mg/dL Ferritin 16.1 ng/mL Vitamin B12 (239-931) pg/mL Folate ng/mL Procalcitonin 0.62 H (0.19-0.49) NG/ML Free T4 (0.78-2.19) ng/dL Total T3 (0.97-1.69) ng/mL Ur Random Creatinine mg/dL Ur Random Sodium meq/L Ur Random Urea Nitrogn mg/dL Hepatitis A IgM Ab (NEGATIVE) Hep Bs Antigen (NEGATIVE) Hep B Core IgM Ab (NEGATIVE) Hepatitis C Antibody (NEGATIVE) Blood Type B NEGATIVE Antibody Screen Negative Crossmatch See Detail BBK History Checked No verified bt Laboratory Results - last 24 hr 04/03/18 04/03/18 04/03/18 17:44 18:13 19:00 WBC RBC Hgb Hct MCV MCH MCHC RDW Plt Count MPV Gran % Lymph % (Auto) Clayton % (Auto) Eos % (Auto) Baso % (Auto) Gran # Lymph # (Auto) Clayton # (Auto) Eos # (Auto) Baso # (Auto) Haptoglobin Sodium Potassium Chloride Carbon Dioxide Anion Gap BUN Creatinine Est GFR ( Amer) Est GFR (Non-Af Amer) POC Glucose (mg/dL) Random Glucose Calcium Ferritin 16.1 Vitamin B12 Folate Procalcitonin 0.62 H Free T4 Total T3 Ur Random Creatinine Ur Random Sodium Ur Random Urea Nitrogn Hepatitis A IgM Ab Hep Bs Antigen Hep B Core IgM Ab Hepatitis C Antibody Blood Type B NEGATIVE Antibody Screen Negative Crossmatch See Detail BBK History Checked No verified bt 04/03/18 04/03/18 04/04/18 19:00 19:00 06:30 WBC RBC Hgb Hct MCV MCH MCHC RDW Plt Count MPV Gran % Lymph % (Auto) Clayton % (Auto) Eos % (Auto) Baso % (Auto) Gran # Lymph # (Auto) Clayton # (Auto) Eos # (Auto) Baso # (Auto) Haptoglobin 63.4 Sodium Potassium Chloride Carbon Dioxide Anion Gap BUN Creatinine Est GFR ( Amer) Est GFR (Non-Af Amer) POC Glucose (mg/dL) Random Glucose Calcium Ferritin Vitamin B12 950 H Folate 13.3 Procalcitonin Free T4 Total T3 Ur Random Creatinine 280 Ur Random Sodium 18 Ur Random Urea Nitrogn 301 Hepatitis A IgM Ab Hep Bs Antigen Hep B Core IgM Ab Hepatitis C Antibody Blood Type Antibody Screen Crossmatch BBK History Checked 04/04/18 04/04/18 04/04/18 11:24 13:10 13:10 WBC RBC Hgb Hct MCV MCH MCHC RDW Plt Count MPV Gran % Lymph % (Auto) Clayton % (Auto) Eos % (Auto) Baso % (Auto) Gran # Lymph # (Auto) Clayton # (Auto) Eos # (Auto) Baso # (Auto) Haptoglobin Sodium Potassium Chloride Carbon Dioxide Anion Gap BUN Creatinine Est GFR ( Amer) Est GFR (Non-Af Amer) POC Glucose (mg/dL) 117 H Random Glucose Calcium Ferritin Vitamin B12 Folate Procalcitonin Free T4 0.91 Total T3 0.53 L Ur Random Creatinine Ur Random Sodium Ur Random Urea Nitrogn Hepatitis A IgM Ab Negative Hep Bs Antigen Negative Hep B Core IgM Ab Negative Hepatitis C Antibody Negative Blood Type Antibody Screen Crossmatch BBK History Checked 04/04/18 04/04/18 04/04/18 13:10 18:06 18:39 WBC 9.6 RBC 2.27 L Hgb 5.9 L* Hct 18.4 L* MCV 81.1 MCH 26.0 MCHC 32.1 RDW 20.0 H Plt Count 121 MPV 8.1 Gran % 77.2 H Lymph % (Auto) 9.9 L Clayton % (Auto) 9.1 H Eos % (Auto) 3.7 Baso % (Auto) 0.1 Gran # 7.39 H Lymph # (Auto) 1.0 L Clayton # (Auto) 0.9 H Eos # (Auto) 0.4 Baso # (Auto) 0.01 Haptoglobin Sodium 133 Potassium 5.1 H Chloride 105 Carbon Dioxide 14 L Anion Gap 20 BUN 104 H Creatinine 7.2 H Est GFR ( Amer) 7 Est GFR (Non-Af Amer) 6 POC Glucose (mg/dL) 111 H Random Glucose 114 H Calcium 7.4 L Ferritin Vitamin B12 Folate Procalcitonin Free T4 Total T3 Ur Random Creatinine Ur Random Sodium Ur Random Urea Nitrogn Hepatitis A IgM Ab Hep Bs Antigen Hep B Core IgM Ab Hepatitis C Antibody Blood Type Antibody Screen Crossmatch BBK History Checked 04/04/18 04/05/18 04/05/18 18:39 00:18 06:13 WBC 10.3 RBC 2.75 L Hgb 7.5 L Hct 22.7 L MCV 82.5 MCH 27.3 MCHC 33.0 RDW 19.5 H Plt Count 113 L MPV 8.3 Gran % Lymph % (Auto) Clayton % (Auto) Eos % (Auto) Baso % (Auto) Gran # Lymph # (Auto) Clayton # (Auto) Eos # (Auto) Baso # (Auto) Haptoglobin Sodium Potassium Chloride Carbon Dioxide Anion Gap BUN Creatinine Est GFR ( Amer) Est GFR (Non-Af Amer) POC Glucose (mg/dL) 113 H 108 Random Glucose Calcium Ferritin Vitamin B12 Folate Procalcitonin Free T4 Total T3 Ur Random Creatinine Ur Random Sodium Ur Random Urea Nitrogn Hepatitis A IgM Ab Hep Bs Antigen Hep B Core IgM Ab Hepatitis C Antibody Blood Type Antibody Screen Crossmatch BBK History Checked Radiology Impressions: Radiology Impressions Extremity Ultrasound 04/03/18 14:58 IMPRESSION: No sonographic evidence for deep venous thrombosis in the visualized segments of both lower extremities. Very limited study Abdomen/Pelvis CT 04/03/18 18:00 IMPRESSION: Upper abdominal adenopathy in the region of the hepatic gastric ligament. Status post the gastric surgery. Cholecystectomy. Extensive ascites and anasarca. Head CT 04/03/18 18:05 IMPRESSION: Normal CT of the Head. Chest X-Ray 04/04/18 05:00 IMPRESSION: No active disease. Renal Ultrasound 04/04/18 10:41 IMPRESSION: Unremarkable renal sonogram. Fingerstick Blood Sugar Results: 149 Review of Systems - Review of Systems Review of Systems: 12 point ROS completed and negative except as described in HPI. Critical Care Progress Note - Extremities/Vascular Does the Patient have a Eden Catheter?: Yes Does the Patient need a Eden Catheter?: Yes - Nutrition Nutrition: Nutrition Category Date Time Status NPO Diet [DIET] Diets 04/03/18 Dinner Ordered Assessment/Plan - Assessment and Plan (Free Text) Assessment: Patient is a 52 yo F with PMHx of Liver failure, morbid obesity, depression, past etoh abuse who presents with lethargy, fatigue, anemia, and acute kidney injury. Hgb with an inappropriate response s/p 5 units PRBC and 2 FFP, subsequently received 3u PRBC 04/04. Repeat Hgb this morning 7.6. 1 more unit PRBC to be given in advance of Endoscopy this morning. Permacath placement and subsequent HD planned for later today. Plan: Neuro - AAOx3 - Head CT unremarkable - Continue to monitor for signs of confusion Respiratory - Duonebs PRN and Scheduled - Supplemental O2 - Keep SaO2 >90%, frequent lung checks ID - UA shows small leuk esterase, moderate blood, large amount of urine bacteria - CXR on admission 04/03 shows mild cardiomegaly - Repeat CXR 04/04 unchanged from previous - Afebrile, no leukocytosis - Panculture - Procal 0.62 Cardiovascular - EKG on admission NSR @ 77 bpm - Elevated BNP 26147 - Echo 04/04 shows LVEF 68%, borderline LVH, moderate pulm HTN Heme - Extremity U/S 04/03 shows no evidence of DVT, limited study - Microcytic, hypochromic anemia - Iron studies consistent with iron deficiency, likely 2/2 GI bleed - Currently Hgb 7.6 s/p 8 PRBC and 2 FFP. 1 more unit currently. GI - Protonix gtt - Octreotide gtt - NPO, accuchecks q6h - Noncontrast Abd/pelvis CT shows ascites, anasarca, bilateral small pleural effusions, and upper abdominal retroperitoneal adenopathy, cardiomegaly. Limited by body habitus. - GI consulted for ? GI bleed- Dr. Melo. Plan for upper endoscopy today. F/U report. CLD. Nephro - Cr 7.4, baseline unknown. 7.3 this AM - Urine electrolytes to evaluate FENa - Strict I's and O's, Eden in place. Poor urine output 04/05 - Repeat BMP K 5.1 today - hyperphosphaetemia, hypermagnesemia - UDS neg - Nephrology consulted - Dr. Salmeron - plan for HD today, poor urine output overnight, phosphate binders, IV Iron - IR consulted (04/05) for permacath placement. Consent received from sister over phone after discussion of risks and benefits, nurse as witness. - Renal U/S (04/04) shows no stones, masses or hydronephrosis - Metabolic Acidosis pH 7.2, HCO3 10.8, pCO2 24 - D5W with bicarb gtt Psych - Psych consulted for depression- Dr. Maradiaga. - Trazodone 50 mg HS, Xanax 0.25 TID - r/o MDD GI/DVT PPx - Protonix gtt - SCDs Patient seen, case reviewed and plan approved by Dr. Gallegos. Charbel Perdue, PGY-1 <Handy Gallegos - Last Filed: 04/05/18 13:42> CCU Objective - Vital Signs / Intake & Output Vital Signs (Last 4 hours): Vital Signs Temp Pulse Resp BP Pulse Ox 04/05/18 12:53 98.1 F 04/05/18 12:46 65 17 126/60 100 04/05/18 12:32 60 20 105/48 L 100 04/05/18 12:30 64 16 95/49 L 100 04/05/18 12:15 63 20 145/68 98 04/05/18 12:12 61 22 131/74 99 04/05/18 12:01 61 15 127/64 99 04/05/18 12:00 87 24 99 04/05/18 11:50 82 36 H 04/05/18 11:45 68 17 106/42 L 100 04/05/18 10:15 64 14 137/82 100 04/05/18 10:00 65 13 137/76 100 04/05/18 09:45 71 29 H 124/67 99 Intake and Output (Last 8hrs): Intake & Output 04/04/18 04/05/18 04/05/18 22:59 06:59 14:59 Intake Total 1620 Output Total 70 Balance 1550 Intake: IV 740 Left Antecubital 240 Right Antecubital 500 Blood Product 880 Output: Urine 70 2-way Urethral 70 - Medications Active Medications: Active Medications Generic Name Dose Route Start Last Admin Trade Name Freq PRN Reason Stop Dose Admin Albuterol/Ipratropium 3 ml 04/03/18 20:00 04/05/18 13:07 Duoneb 3 Mg/0.5 Mg (3 Ml) Ud IH 3 ml [id number] MAKAYLA Administration Albuterol/Ipratropium 3 ml 04/03/18 18:05 Duoneb 3 Mg/0.5 Mg (3 Ml) Ud IH Q2H PRN Shortness of Breath Alprazolam 0.25 mg 04/04/18 15:44 04/04/18 19:25 Xanax PO 04/11/18 18:01 0.25 mg TID PRN Administration anxiety/restlessness Protocol Pantoprazole Sodium 40 mg in 100 mls @ 20 mls/hr 04/03/18 18:15 04/05/18 05:54 Protonix 40mg Ivpb IVPB 20 mls/hr .Q5H MAKAYLA Administration Octreotide Acetate 1,250 mcg/ 252.5 mls @ 5.05 mls/hr 04/03/18 18:15 04/03/18 19:14 Dextrose IV 25 mcg/hr .Q24H MAKAYLA 5.05 mls/hr Administration Protocol 25 MCG/HR Iron Sucrose 100 mg/ Sodium 105 mls @ 210 mls/hr 04/05/18 10:00 04/05/18 10:01 Chloride IVPB 04/15/18 10:01 210 mls/hr DAILY MAKAYLA Administration Sevelamer HCl 800 mg 04/05/18 14:00 Renagel PO TID MAKAYLA Trazodone HCl 50 mg 04/04/18 22:00 04/04/18 22:00 Desyrel PO Not Given HS MAKAYLA - Patient Studies Lab Studies: Microbiology Studies 04/03/18 21:54 MRSA Culture (Admit) - Final Nose MRSA NOT DETECTED 04/03/18 19:20 Urine Culture - Final Urine,Clean Catch 50-100,000 CFU/ML. MULTIPLE SPECIES. SUGGEST REPEAT SPECIMEN. 04/03/18 18:35 Blood Culture - Preliminary Blood NO GROWTH AFTER 24 HOURS 04/03/18 18:30 Blood Culture - Preliminary Blood NO GROWTH AFTER 24 HOURS Lab Studies 04/05/18 04/05/18 04/05/18 Range/Units 12:45 06:30 06:30 WBC 9.0 8.7 (4.5-11.0) 10^3/uL RBC 2.86 L 2.86 L (3.5-6.1) 10^6/uL Hgb 7.8 L 7.6 L (12.0-16.0) g/dL Hct 23.7 L 23.5 L (36.0-48.0) % MCV 82.9 82.2 (80.0-105.0) fl MCH 27.3 26.6 (25.0-35.0) pg MCHC 32.9 32.3 (31.0-37.0) g/dl RDW 19.5 H 19.7 H (11.5-14.5) % Plt Count 101 L 106 L (120.0-450.0) 10^3/uL MPV 8.1 8.9 (7.0-11.0) fl Gran % 75.9 H 73.3 H (50.0-68.0) % Lymph % (Auto) 9.1 L 10.8 L (22.0-35.0) % Clayton % (Auto) 9.8 H 10.4 H (1.0-6.0) % Eos % (Auto) 5.0 5.4 H (1.5-5.0) % Baso % (Auto) 0.2 0.1 (0.0-3.0) % Gran # 6.84 H 6.40 (1.4-6.5) Lymph # (Auto) 0.8 L 0.9 L (1.2-3.4) Clayton # (Auto) 0.9 H 0.9 H (0.1-0.6) Eos # (Auto) 0.5 0.5 (0.0-0.7) Baso # (Auto) 0.02 0.01 (0.0-2.0) K/mm3 Sodium 131 L (132-148) mmol/L Potassium 5.1 H (3.6-5.0) mmol/L Chloride 104 (98-107) mmol/L Carbon Dioxide 14 L (21-33) mmol/L Anion Gap 18 (10-20) BUN 104 H (7-21) mg/dL Creatinine 7.3 H (0.7-1.2) mg/dl Est GFR ( Amer) 7 Est GFR (Non-Af Amer) 6 POC Glucose (mg/dL) (65-110) mg/dL Random Glucose 97 (70-110) mg/dL Calcium 7.2 L (8.4-10.5) mg/dL Phosphorus 9.9 H (2.5-4.5) mg/dL Magnesium 3.2 H (1.7-2.2) mg/dL Total Bilirubin 3.7 H (0.2-1.3) mg/dL AST 38 H (14-36) U/L ALT 31 (7-56) U/L Alkaline Phosphatase 143 H (38-126) U/L Total Protein 6.2 (5.8-8.3) g/dL Albumin 2.6 L (3.0-4.8) g/dL Globulin 3.6 gm/dL Albumin/Globulin Ratio 0.7 L (1.1-1.8) Vitamin B12 (239-931) pg/mL Folate ng/mL Procalcitonin (0.19-0.49) NG/ML Free T4 (0.78-2.19) ng/dL Total T3 (0.97-1.69) ng/mL Hepatitis A IgM Ab (NEGATIVE) Hep Bs Antigen (NEGATIVE) Hep B Core IgM Ab (NEGATIVE) Hepatitis C Antibody (NEGATIVE) HIV 1&2 Ag/Ab, 4th Gen (Nonreactive) Blood Type Antibody Screen Crossmatch BBK History Checked 04/05/18 04/05/18 04/04/18 Range/Units 06:13 00:18 18:39 WBC 10.3 (4.5-11.0) 10^3/uL RBC 2.75 L (3.5-6.1) 10^6/uL Hgb 7.5 L (12.0-16.0) g/dL Hct 22.7 L (36.0-48.0) % MCV 82.5 (80.0-105.0) fl MCH 27.3 (25.0-35.0) pg MCHC 33.0 (31.0-37.0) g/dl RDW 19.5 H (11.5-14.5) % Plt Count 113 L (120.0-450.0) 10^3/uL MPV 8.3 (7.0-11.0) fl Gran % (50.0-68.0) % Lymph % (Auto) (22.0-35.0) % [place] % (Auto) (1.0-6.0) % Eos % (Auto) (1.5-5.0) % Baso % (Auto) (0.0-3.0) % Gran # (1.4-6.5) Lymph # (Auto) (1.2-3.4) [place] # (Auto) (0.1-0.6) Eos # (Auto) (0.0-0.7) Baso # (Auto) (0.0-2.0) K/mm3 Sodium (132-148) mmol/L Potassium (3.6-5.0) mmol/L Chloride (98-107) mmol/L Carbon Dioxide (21-33) mmol/L Anion Gap (10-20) BUN (7-21) mg/dL Creatinine (0.7-1.2) mg/dl Est GFR ( Amer) Est GFR (Non-Af Amer) POC Glucose (mg/dL) 108 113 H (65-110) mg/dL Random Glucose (70-110) mg/dL Calcium (8.4-10.5) mg/dL Phosphorus (2.5-4.5) mg/dL Magnesium (1.7-2.2) mg/dL Total Bilirubin (0.2-1.3) mg/dL AST (14-36) U/L ALT (7-56) U/L Alkaline Phosphatase (38-126) U/L Total Protein (5.8-8.3) g/dL Albumin (3.0-4.8) g/dL Globulin gm/dL Albumin/Globulin Ratio (1.1-1.8) Vitamin B12 (239-931) pg/mL Folate ng/mL Procalcitonin (0.19-0.49) NG/ML Free T4 (0.78-2.19) ng/dL Total T3 (0.97-1.69) ng/mL Hepatitis A IgM Ab (NEGATIVE) Hep Bs Antigen (NEGATIVE) Hep B Core IgM Ab (NEGATIVE) Hepatitis C Antibody (NEGATIVE) HIV 1&2 Ag/Ab, 4th Gen (Nonreactive) Blood Type Antibody Screen Crossmatch BBK History Checked 04/04/18 04/04/18 04/04/18 Range/Units 18:39 18:06 13:10 WBC (4.5-11.0) 10^3/uL RBC (3.5-6.1) 10^6/uL Hgb (12.0-16.0) g/dL Hct (36.0-48.0) % MCV (80.0-105.0) fl MCH (25.0-35.0) pg MCHC (31.0-37.0) g/dl RDW (11.5-14.5) % Plt Count (120.0-450.0) 10^3/uL MPV (7.0-11.0) fl Gran % (50.0-68.0) % Lymph % (Auto) (22.0-35.0) % [place] % (Auto) (1.0-6.0) % Eos % (Auto) (1.5-5.0) % Baso % (Auto) (0.0-3.0) % Gran # (1.4-6.5) Lymph # (Auto) (1.2-3.4) [place] # (Auto) (0.1-0.6) Eos # (Auto) (0.0-0.7) Baso # (Auto) (0.0-2.0) K/mm3 Sodium 133 (132-148) mmol/L Potassium 5.1 H (3.6-5.0) mmol/L Chloride 105 (98-107) mmol/L Carbon Dioxide 14 L (21-33) mmol/L Anion Gap 20 (10-20) BUN 104 H (7-21) mg/dL Creatinine 7.2 H (0.7-1.2) mg/dl Est GFR ( Amer) 7 Est GFR (Non-Af Amer) 6 POC Glucose (mg/dL) 111 H (65-110) mg/dL Random Glucose 114 H (70-110) mg/dL Calcium 7.4 L (8.4-10.5) mg/dL Phosphorus (2.5-4.5) mg/dL Magnesium (1.7-2.2) mg/dL Total Bilirubin (0.2-1.3) mg/dL AST (14-36) U/L ALT (7-56) U/L Alkaline Phosphatase (38-126) U/L Total Protein (5.8-8.3) g/dL Albumin (3.0-4.8) g/dL Globulin gm/dL Albumin/Globulin Ratio (1.1-1.8) Vitamin B12 (239-931) pg/mL Folate ng/mL Procalcitonin (0.19-0.49) NG/ML Free T4 (0.78-2.19) ng/dL Total T3 (0.97-1.69) ng/mL Hepatitis A IgM Ab (NEGATIVE) Hep Bs Antigen (NEGATIVE) Hep B Core IgM Ab (NEGATIVE) Hepatitis C Antibody (NEGATIVE) HIV 1&2 Ag/Ab, 4th Gen Nonreactive (Nonreactive) Blood Type Antibody Screen Crossmatch BBK History Checked 04/04/18 04/04/18 04/04/18 Range/Units 13:10 13:10 11:24 WBC (4.5-11.0) 10^3/uL RBC (3.5-6.1) 10^6/uL Hgb (12.0-16.0) g/dL Hct (36.0-48.0) % MCV (80.0-105.0) fl MCH (25.0-35.0) pg MCHC (31.0-37.0) g/dl RDW (11.5-14.5) % Plt Count (120.0-450.0) 10^3/uL MPV (7.0-11.0) fl Gran % (50.0-68.0) % Lymph % (Auto) (22.0-35.0) % Clayton % (Auto) (1.0-6.0) % Eos % (Auto) (1.5-5.0) % Baso % (Auto) (0.0-3.0) % Gran # (1.4-6.5) Lymph # (Auto) (1.2-3.4) Clayton # (Auto) (0.1-0.6) Eos # (Auto) (0.0-0.7) Baso # (Auto) (0.0-2.0) K/mm3 Sodium (132-148) mmol/L Potassium (3.6-5.0) mmol/L Chloride (98-107) mmol/L Carbon Dioxide (21-33) mmol/L Anion Gap (10-20) BUN (7-21) mg/dL Creatinine (0.7-1.2) mg/dl Est GFR ( Amer) Est GFR (Non-Af Amer) POC Glucose (mg/dL) 117 H (65-110) mg/dL Random Glucose (70-110) mg/dL Calcium (8.4-10.5) mg/dL Phosphorus (2.5-4.5) mg/dL Magnesium (1.7-2.2) mg/dL Total Bilirubin (0.2-1.3) mg/dL AST (14-36) U/L ALT (7-56) U/L Alkaline Phosphatase (38-126) U/L Total Protein (5.8-8.3) g/dL Albumin (3.0-4.8) g/dL Globulin gm/dL Albumin/Globulin Ratio (1.1-1.8) Vitamin B12 (239-931) pg/mL Folate ng/mL Procalcitonin (0.19-0.49) NG/ML Free T4 0.91 (0.78-2.19) ng/dL Total T3 0.53 L (0.97-1.69) ng/mL Hepatitis A IgM Ab Negative (NEGATIVE) Hep Bs Antigen Negative (NEGATIVE) Hep B Core IgM Ab Negative (NEGATIVE) Hepatitis C Antibody Negative (NEGATIVE) HIV 1&2 Ag/Ab, 4th Gen (Nonreactive) Blood Type Antibody Screen Crossmatch BBK History Checked 04/03/18 04/03/18 04/03/18 Range/Units 19:00 19:00 17:44 WBC (4.5-11.0) 10^3/uL RBC (3.5-6.1) 10^6/uL Hgb (12.0-16.0) g/dL Hct (36.0-48.0) % MCV (80.0-105.0) fl MCH (25.0-35.0) pg MCHC (31.0-37.0) g/dl RDW (11.5-14.5) % Plt Count (120.0-450.0) 10^3/uL MPV (7.0-11.0) fl Gran % (50.0-68.0) % Lymph % (Auto) (22.0-35.0) % Clayton % (Auto) (1.0-6.0) % Eos % (Auto) (1.5-5.0) % Baso % (Auto) (0.0-3.0) % Gran # (1.4-6.5) Lymph # (Auto) (1.2-3.4) Clayton # (Auto) (0.1-0.6) Eos # (Auto) (0.0-0.7) Baso # (Auto) (0.0-2.0) K/mm3 Sodium (132-148) mmol/L Potassium (3.6-5.0) mmol/L Chloride (98-107) mmol/L Carbon Dioxide (21-33) mmol/L Anion Gap (10-20) BUN (7-21) mg/dL Creatinine (0.7-1.2) mg/dl Est GFR ( Amer) Est GFR (Non-Af Amer) POC Glucose (mg/dL) (65-110) mg/dL Random Glucose (70-110) mg/dL Calcium (8.4-10.5) mg/dL Phosphorus (2.5-4.5) mg/dL Magnesium (1.7-2.2) mg/dL Total Bilirubin (0.2-1.3) mg/dL AST (14-36) U/L ALT (7-56) U/L Alkaline Phosphatase (38-126) U/L Total Protein (5.8-8.3) g/dL Albumin (3.0-4.8) g/dL Globulin gm/dL Albumin/Globulin Ratio (1.1-1.8) Vitamin B12 950 H (239-931) pg/mL Folate 13.3 ng/mL Procalcitonin 0.62 H (0.19-0.49) NG/ML Free T4 (0.78-2.19) ng/dL Total T3 (0.97-1.69) ng/mL Hepatitis A IgM Ab (NEGATIVE) Hep Bs Antigen (NEGATIVE) Hep B Core IgM Ab (NEGATIVE) Hepatitis C Antibody (NEGATIVE) HIV 1&2 Ag/Ab, 4th Gen (Nonreactive) Blood Type B NEGATIVE Antibody Screen Negative Crossmatch See Detail BBK History Checked No verified bt Laboratory Results - last 24 hr 04/03/18 04/03/18 04/03/18 17:44 19:00 19:00 WBC RBC Hgb Hct MCV MCH MCHC RDW Plt Count MPV Gran % Lymph % (Auto) Clayton % (Auto) Eos % (Auto) Baso % (Auto) Gran # Lymph # (Auto) Clayton # (Auto) Eos # (Auto) Baso # (Auto) Sodium Potassium Chloride Carbon Dioxide Anion Gap BUN Creatinine Est GFR ( Amer) Est GFR (Non-Af Amer) POC Glucose (mg/dL) Random Glucose Calcium Phosphorus Magnesium Total Bilirubin AST ALT Alkaline Phosphatase Total Protein Albumin Globulin Albumin/Globulin Ratio Vitamin B12 950 H Folate 13.3 Procalcitonin 0.62 H Free T4 Total T3 Hepatitis A IgM Ab Hep Bs Antigen Hep B Core IgM Ab Hepatitis C Antibody HIV 1&2 Ag/Ab, 4th Gen Blood Type B NEGATIVE Antibody Screen Negative Crossmatch See Detail BBK History Checked No verified bt 04/04/18 04/04/18 04/04/18 11:24 13:10 13:10 WBC RBC Hgb Hct MCV MCH MCHC RDW Plt Count MPV Gran % Lymph % (Auto) Clayton % (Auto) Eos % (Auto) Baso % (Auto) Gran # Lymph # (Auto) Clayton # (Auto) Eos # (Auto) Baso # (Auto) Sodium Potassium Chloride Carbon Dioxide Anion Gap BUN Creatinine Est GFR ( Amer) Est GFR (Non-Af Amer) POC Glucose (mg/dL) 117 H Random Glucose Calcium Phosphorus Magnesium Total Bilirubin AST ALT Alkaline Phosphatase Total Protein Albumin Globulin Albumin/Globulin Ratio Vitamin B12 Folate Procalcitonin Free T4 0.91 Total T3 0.53 L Hepatitis A IgM Ab Negative Hep Bs Antigen Negative Hep B Core IgM Ab Negative Hepatitis C Antibody Negative HIV 1&2 Ag/Ab, 4th Gen Blood Type Antibody Screen Crossmatch BBK History Checked 04/04/18 04/04/18 04/04/18 13:10 18:06 18:39 WBC RBC Hgb Hct MCV MCH MCHC RDW Plt Count MPV Gran % Lymph % (Auto) Clayton % (Auto) Eos % (Auto) Baso % (Auto) Gran # Lymph # (Auto) Clayton # (Auto) Eos # (Auto) Baso # (Auto) Sodium 133 Potassium 5.1 H Chloride 105 Carbon Dioxide 14 L Anion Gap 20 BUN 104 H Creatinine 7.2 H Est GFR ( Amer) 7 Est GFR (Non-Af Amer) 6 POC Glucose (mg/dL) 111 H Random Glucose 114 H Calcium 7.4 L Phosphorus Magnesium Total Bilirubin AST ALT Alkaline Phosphatase Total Protein Albumin Globulin Albumin/Globulin Ratio Vitamin B12 Folate Procalcitonin Free T4 Total T3 Hepatitis A IgM Ab Hep Bs Antigen Hep B Core IgM Ab Hepatitis C Antibody HIV 1&2 Ag/Ab, 4th Gen Nonreactive Blood Type Antibody Screen Crossmatch BBK History Checked 04/04/18 04/05/18 04/05/18 18:39 00:18 06:13 WBC 10.3 RBC 2.75 L Hgb 7.5 L Hct 22.7 L MCV 82.5 MCH 27.3 MCHC 33.0 RDW 19.5 H Plt Count 113 L MPV 8.3 Gran % Lymph % (Auto) Clayton % (Auto) Eos % (Auto) Baso % (Auto) Gran # Lymph # (Auto) Clayton # (Auto) Eos # (Auto) Baso # (Auto) Sodium Potassium Chloride Carbon Dioxide Anion Gap BUN Creatinine Est GFR ( Amer) Est GFR (Non-Af Amer) POC Glucose (mg/dL) 113 H 108 Random Glucose Calcium Phosphorus Magnesium Total Bilirubin AST ALT Alkaline Phosphatase Total Protein Albumin Globulin Albumin/Globulin Ratio Vitamin B12 Folate Procalcitonin Free T4 Total T3 Hepatitis A IgM Ab Hep Bs Antigen Hep B Core IgM Ab Hepatitis C Antibody HIV 1&2 Ag/Ab, 4th Gen Blood Type Antibody Screen Crossmatch BBK History Checked 04/05/18 04/05/18 04/05/18 06:30 06:30 12:45 WBC 8.7 9.0 RBC 2.86 L 2.86 L Hgb 7.6 L 7.8 L Hct 23.5 L 23.7 L MCV 82.2 82.9 MCH 26.6 27.3 MCHC 32.3 32.9 RDW 19.7 H 19.5 H Plt Count 106 L 101 L MPV 8.9 8.1 Gran % 73.3 H 75.9 H Lymph % (Auto) 10.8 L 9.1 L Clayton % (Auto) 10.4 H 9.8 H Eos % (Auto) 5.4 H 5.0 Baso % (Auto) 0.1 0.2 Gran # 6.40 6.84 H Lymph # (Auto) 0.9 L 0.8 L Clayton # (Auto) 0.9 H 0.9 H Eos # (Auto) 0.5 0.5 Baso # (Auto) 0.01 0.02 Sodium 131 L Potassium 5.1 H Chloride 104 Carbon Dioxide 14 L Anion Gap 18 BUN 104 H Creatinine 7.3 H Est GFR ( Amer) 7 Est GFR (Non-Af Amer) 6 POC Glucose (mg/dL) Random Glucose 97 Calcium 7.2 L Phosphorus 9.9 H Magnesium 3.2 H Total Bilirubin 3.7 H AST 38 H ALT 31 Alkaline Phosphatase 143 H Total Protein 6.2 Albumin 2.6 L Globulin 3.6 Albumin/Globulin Ratio 0.7 L Vitamin B12 Folate Procalcitonin Free T4 Total T3 Hepatitis A IgM Ab Hep Bs Antigen Hep B Core IgM Ab Hepatitis C Antibody HIV 1&2 Ag/Ab, 4th Gen Blood Type Antibody Screen Crossmatch BBK History Checked Radiology Impressions: Radiology Impressions Extremity Ultrasound 04/03/18 14:58 IMPRESSION: No sonographic evidence for deep venous thrombosis in the visualized segments of both lower extremities. Very limited study Critical Care Progress Note - Nutrition Nutrition: Nutrition Category Date Time Status Liquid Diet [DIET] Diets 04/05/18 Lunch Ordered Assessment/Plan - Assessment and Plan (Free Text) Assessment: atient seen and examined on rounds, with resident, agree with note with following additions/exceptions: 52yo female with PMHx of Liver failure, morbid obesity, depression, etoh abuse, presents with lethargy, fatigue, multiple lab abnormalities, including anemia, ARF Currently afebrile, BP stable, comfortable in NAD, O2 sat 99% on 2LNC Labs, imaging, chart reviewed. HH stable, 7.8, s/p 1u pRBC today Had EGD today, multiple non bleeding ulcers Had permacath placed by IR today, currently undergoing HD Anemia ARF Metabolic Acidosis Morbid Obesity GIB Hx etOH abuse Hx Depression Fatigue Lethargy Recommend: - supp o2 as needed, duonebs PRN - ECHO - clar liquid diet - PPI PO - DC PPI gtt, DC Octreotide gtt - DC IVF - maintain 2 large bore PIVs - GI ppx, - DVT ppx, SCDs - if tolerates HD, can be transferred to telemetry
[2018-04-05 07:11] LABS: BASO # 0.01 K/mm3 (0.0-2.0); BASO % 0.1 % (0.0-3.0); EOS # 0.5 (0.0-0.7); EOS % 5.4 % (1.5-5.0); GRAN # 6.4 (1.4-6.5); GRAN % 73.3 % (50.0-68.0); HEMOGLOBIN 7.6 g/dL (12.0-16.0); LYMPH # 0.9 (1.2-3.4); LYMPH % 10.8 % (22.0-35.0); MEAN CELL VOLUME 82.2 fl (80.0-105.0); MEAN CORPUSCULAR HEMOGLOBIN 26.6 pg (25.0-35.0); MEAN CORPUSCULAR HGB CONC 32.3 g/dl (31.0-37.0); MEAN PLATELET VOLUME 8.9 fl (7.0-11.0); MONO # 0.9 (0.1-0.6); MONO % 10.4 % (1.0-6.0); RBC 2.86 10^6/uL (3.5-6.1); RED CELL DISTRIBUTION WIDTH 19.7 % (11.5-14.5); WHITE BLOOD COUNT 8.7 10^3/uL (4.5-11.0)
[2018-04-05 07:35] LABS: ALB/GLOB RATIO 0.7 (1.1-1.8); ALBUMIN 2.6 g/dL (3.0-4.8); CALCIUM 7.2 mg/dL (8.4-10.5)
--- NOTE | 2018-04-05 08:50 | CARD ---
APPROVED REPORT Date of service: 04/04/2018 EXAM: Two-dimensional and M-mode echocardiogram with Doppler and color Doppler. Other Information Quality : FairRhythm : INDICATION ANASARCA 2D DIMENSIONS Left Atrium (2D)4.4 (1.6-4.0cm)IVSd1.2 (0.7-1.1cm) LVDd6.2 (3.9-5.9cm)PWd0.9 (0.7-1.1cm) LVDs3.7 (2.5-4.0cm)FS (%) 39.2 % LVEF (%)68.0 (>50%) M-Mode DIMENSIONS Aortic Root2.70 (2.2-3.7cm)Aortic Cusp Exc.1.60 (1.5-2.0cm) Aortic Valve AoV Peak Gnhdcaxz702.0cm/s Mitral Valve MV E Kszjrtec055.0cm/sMV A Zjkyklkh70.7cm/sE/A ratio1.9 TDI E/Lateral E'0.0E/Medial E'0.0 Tricuspid Valve TR Peak [id number]/sRAP [id number] Peak Gr.34mmHg [id number] LEFT VENTRICLE The left ventricle is normal size. There is borderline to mild concentric left ventricular hypertrophy. The left ventricular function is normal. The left ventricular ejection fraction is within the normal range. There is normal LV segmental wall motion. RIGHT VENTRICLE The right ventricle is not well visualized. ATRIA The left atrium is mildly dilated. The right atrium is not well visualized. AORTIC VALVE The aortic valve is normal in structure. MITRAL VALVE The mitral valve is normal in structure. Mitral regurgitation is mild. TRICUSPID VALVE The tricuspid valve is normal in structure. There is mild tricuspid regurgitation. There is mild-moderate pulmonary hypertension. PULMONIC VALVE The pulmonic valve is not well visualized. GREAT VESSELS The aortic root is normal in size. PERICARDIAL EFFUSION There is no pericardial effusion. <Conclusion> The left ventricle is normal size. There is borderline to mild concentric left ventricular hypertrophy. The left ventricular function is normal. Mitral regurgitation is mild. There is mild tricuspid regurgitation. There is mild-moderate pulmonary hypertension.
[2018-04-05] MEDS ORDERED: Etomidate 20 mg/10ml Inj IV ONE (08:53)
[2018-04-05] MEDS ORDERED: Lidocaine 2% Inj (20ml) ONE (10:07)
[2018-04-05] MEDS ORDERED: Midazolam 2 MG/2 ML VIAL ONE ×2 (10:51→11:14)
[2018-04-05 12:52] LABS: BASO # 0.02 K/mm3 (0.0-2.0); BASO % 0.2 % (0.0-3.0); EOS # 0.5 (0.0-0.7); GRAN # 6.84 (1.4-6.5); GRAN % 75.9 % (50.0-68.0); HEMOGLOBIN 7.8 g/dL (12.0-16.0); LYMPH # 0.8 (1.2-3.4); LYMPH % 9.1 % (22.0-35.0); MEAN CELL VOLUME 82.9 fl (80.0-105.0); MEAN CORPUSCULAR HEMOGLOBIN 27.3 pg (25.0-35.0); MEAN CORPUSCULAR HGB CONC 32.9 g/dl (31.0-37.0); MEAN PLATELET VOLUME 8.1 fl (7.0-11.0); MONO # 0.9 (0.1-0.6); MONO % 9.8 % (1.0-6.0); RBC 2.86 10^6/uL (3.5-6.1); RED CELL DISTRIBUTION WIDTH 19.5 % (11.5-14.5)
--- NOTE | 2018-04-05 13:14 | CP.PCM.PN ---
Subjective - Date & Time of Evaluation Date of Evaluation: 04/05/18 Time of Evaluation: 13:12 - Subjective Subjective: Nephrology Consultation Note: Assessment: critical oligoanuric Acute Kidney Injury (N17.9) likely due to ATN, pre-renal state, intrasvasc hypovolemia, impaired renal perfusion anasarca severe symptomatic anemia due to GI bleed with gastric ulcers mild hyperkalemia and HAGMA, hyperphos hx of cirrhosis and etoh intra-ab lymphadenopathy morbid obesity Plan HD 04/05/18: first session as ordered. next HD tomorrow Maintain hemodynamics stable. Avoid hypotension. Patient not on ACEI/ARB due to recent FELIPE Monitor Input/Output, daily weights and renal function with basic metabolic panel will start phos binders once on diet PRBC as per ICU. started IV iron GI consult pt on PPI discontinue bicarb drip Dose meds/antibiotics for reduced GFR. Avoid fleets enema/magnesium based laxatives. Avoid nephrotoxins/NSAIDs/ iodinated contrast (unless needed emergently) Glycemic control Further work up/management as per primary team Thanks for allowing me to participate in care of your patient. Will follow patient with you. Please call if any Qs. had d/w team Dr Kenji Salmeron Office: [phone] Chief Complaint; fatigue Reason for consult: Acute Kidney Injury HPI: Pt is a 52 F with hx of alcoholism in past, cirrhosis (pt states got better on its own in past) but no regular follow up with PMD presented with complaints of fatigue and tiredness for last few days, found to have severe anemia and FELIPE Denies OTC/herbal meds but NSAIDs as alleve for last few days No recent iodinated contrast exposure. Noted obvious episodes of low BP. reports chronic leg swelling but more now denies smoking or etoh now ROS: c/o swelling in leg. had gastric ulcers on EGD Cardiovascular: No chest pain. Pulmonary: No shortness of breath Gastrointestinal: denies abdominal pain No nausea. No vomiting. Genitourinary: No pain while urinating. Denies blood in urine. All other negative except as mentioned in HPI Physical Examination: General Appearance: Comfortable, in no acute respiratory distress, co-operative . morbid obese Vitals reviewed and noted as below Head; Atraumatic, normocephalic ENT: no ulcers no thrush. Tongue is midline. Oropharynx: no rash or ulcers. EYES: Pupils are equal, round and reactive to light accommodation. Eye muscles and extraocular movement intact. Sclera is anicteric. Neck; supple no lymphadenopathy, no thyromegaly or bruit Lungs: Normal respiratory rate/effort. Breath sounds bilateral reduced at bases Heart: Normal rate. s1s2 normal. No rub or gallop. Extremities: 3+ edema. No varicose veins Neurological: Patient is alert, awake and oriented to person, place and time. No focal deficit. Strength bilateral appropriate and equal Skin: Warm and dry. Normal turgor. spider angioma rash upper chest. Palpitation: Normal elasticity for age Abdomen: Abdomen is soft. Bowel sounds +. There is no abdominal tenderness, no guarding/rigidity no organomegaly. limited due to obesity and abd wall edema Psych: normal insight and normal affect/mood MSK: no joint tenderness or swelling. Digits and nails normal, no deformity : kidney or bladder not palpable. has lee has access as permacath Labs/imaging reviewed. Past medical history, past surgical history, family history, social history, allergy reviewed and noted as below Family hx: no hx of CKD. Rest non-contributory fena 0.3% intra-ab lymphadenopathy Objective - Vital Signs/Intake and Output Vital Signs (last 24 hours): Temp Pulse Resp BP Pulse Ox 98.1 F 65 17 126/60 100 04/05/18 12:53 04/05/18 12:46 04/05/18 12:46 04/05/18 12:46 04/05/18 12:46 - Medications Medications: Current Medications Albuterol/Ipratropium (Duoneb 3 Mg/0.5 Mg (3 Ml) Ud) 3 ml IH [id number] [facility] Last Admin: 04/05/18 13:07 Dose: 3 ml Albuterol/Ipratropium (Duoneb 3 Mg/0.5 Mg (3 Ml) Ud) 3 ml IH Q2H PRN PRN Reason: Shortness of Breath Alprazolam (Xanax) 0.25 mg PO TID PRN; Protocol PRN Reason: anxiety/restlessness Stop: 04/11/18 18:01 Last Admin: 04/04/18 19:25 Dose: 0.25 mg Pantoprazole Sodium (Protonix 40mg Ivpb) 40 mg in 100 mls @ 20 mls/hr IVPB .Q5H [facility] Last Admin: 04/05/18 05:54 Dose: 20 mls/hr Octreotide Acetate 1,250 mcg/ (Dextrose) 252.5 mls @ 5.05 mls/hr IV .Q24H [facility]; Protocol Last Admin: 04/03/18 19:14 Dose: 25 mcg/hr, 5.05 mls/hr Iron Sucrose 100 mg/ Sodium (Chloride) 105 mls @ 210 mls/hr IVPB DAILY [facility]KAYLA Stop: 04/15/18 10:01 Last Admin: 04/05/18 10:01 Dose: 210 mls/hr Trazodone HCl (Desyrel) 50 mg PO HS [facility] Last Admin: 04/04/18 22:00 Dose: Not Given - Labs Labs: 04/05/18 12:45 04/05/18 06:30 PT 13.2 SECONDS (9.4-12.5) H 04/03/18 15:44 INR 1.15 04/03/18 15:44 APTT 30.7 Seconds (25.1-36.5) 04/03/18 15:44
--- NOTE | 2018-04-05 15:12 | CP.PCM.PN ---
<Nhung Anne - Last Filed: 04/05/18 15:08> Subjective - Date & Time of Evaluation Date of Evaluation: 04/05/18 Time of Evaluation: 11:15 - Subjective Subjective: Nhung nAne PGY1 Hospital Progress Note Patient seen and examined at bedside this morning. No acute events overnight. S/p 3 units PRBC with improvement in Hg today. Continues to have poor urine output, plan for HD today. Had endoscopy and cardiac cath today. Offers no complaints today. Objective - Vital Signs/Intake and Output Vital Signs (last 24 hours): Temp Pulse Resp BP Pulse Ox 98.1 F 65 17 126/60 100 04/05/18 12:53 04/05/18 12:46 04/05/18 12:46 04/05/18 12:46 04/05/18 12:46 - Medications Medications: Current Medications Albuterol/Ipratropium (Duoneb 3 Mg/0.5 Mg (3 Ml) Ud) 3 ml IH [id number] [facility] Last Admin: 04/05/18 13:07 Dose: 3 ml Albuterol/Ipratropium (Duoneb 3 Mg/0.5 Mg (3 Ml) Ud) 3 ml IH Q2H PRN PRN Reason: Shortness of Breath Alprazolam (Xanax) 0.25 mg PO TID PRN; Protocol PRN Reason: anxiety/restlessness Stop: 04/11/18 18:01 Last Admin: 04/04/18 19:25 Dose: 0.25 mg Pantoprazole Sodium (Protonix 40mg Ivpb) 40 mg in 100 mls @ 20 mls/hr IVPB .Q5H [facility] Last Admin: 04/05/18 13:55 Dose: 20 mls/hr Octreotide Acetate 1,250 mcg/ (Dextrose) 252.5 mls @ 5.05 mls/hr IV .Q24H [facility]; Protocol Last Admin: 04/03/18 19:14 Dose: 25 mcg/hr, 5.05 mls/hr Iron Sucrose 100 mg/ Sodium (Chloride) 105 mls @ 210 mls/hr IVPB DAILY [facility]KAY[facility] Stop: 04/15/18 10:01 Last Admin: 04/05/18 10:01 Dose: 210 mls/hr Sevelamer HCl (Renagel) 800 mg PO TID [facility] Last Admin: 04/05/18 13:55 Dose: 800 mg Trazodone HCl (Desyrel) 50 mg PO HS [facility] Last Admin: 04/04/18 22:00 Dose: Not Given - Labs Labs: 04/05/18 12:45 04/05/18 06:30 PT 13.2 SECONDS (9.4-12.5) H 04/03/18 15:44 INR 1.15 04/03/18 15:44 APTT 30.7 Seconds (25.1-36.5) 04/03/18 15:44 - Additional Findings Additional findings: - Constitutional Appears: No Acute Distress - Head Exam Head Exam: NORMAL INSPECTION, ATRAUMATIC - Eye Exam Eye Exam: EOMI, PERRL Additional comments: conjunctival pallor noted, improved from yesterday - ENT Exam ENT Exam: Mucous Membranes Moist, Normal Exam - Neck Exam Neck exam: Positive for: Normal Inspection - Respiratory Exam Respiratory Exam: Clear to Auscultation Bilateral. absent: Rales, Rhonchi, Wheezes, respiratory distress - Cardiovascular Exam Cardiovascular Exam: Regular rhythm, +S1, +S2. absent: Systolic Murmur - GI/Abdominal Exam GI & Abdominal Exam: Soft. Bowel sounds heard in all 4 quadrants absent: Distended, Guarding, Rebound, Tenderness - Extremities Exam Extremities exam: Positive for: pedal edema Additional comments: 3+ edema diffuse noted on both lower extremities - unchanged - Neurological Exam Neurological exam: Alert, CN II-XII Intact, Oriented x3 - Skin Skin Exam: Dry, Intact and Pallor Assessment and Plan - Assessment and Plan (Free Text) Assessment: Patient is a 52 yo F with PMH liver failure, morbid obesity, and EtOH abuse presents to [facility] for worsening weakness. Patient likely to have a GI bleed with Hgb of 2.3 and guaiac positive exam. Patient is also noted to be in renal failure. Plan: Microcytic Anemia -Hg is 7.8 today s/p 3 units PRBC today, 8 units total -1 additional PRBC pending for today -endoscopy showed 3 non bleeding gastric ulcers, largest one 8mm. Recommendations include liquid diet -iron studies shows likely iron deficiency -continue protonix drip, octreotide drip. May stop octreotide drip tomorrow -Head CT is unremarkable -CTAP shows adenopathy of the hepatic gastric ligament -Extremity US shows no DVT -NPO, accuchecks q6h -blood culture shows no growth after 24 hours -GI on consult, Dr. Melo Acute Renal Failure -Cr 7.3, baseline unknown -HD planned for today and tomorrow -Renal US is unremarkable -urine output of 70cc today, continues to have poor output -Strict I's and O's -consider lasix of CXR shows worsening congestion -Nephrology on consult, Dr. Salmeron Metabolic Acidosis -initial pH 7.26, HCO3 11, pCO2 22 -Repeat ABG shows anion gap metabolic acidosis with negative delta delta gap significant for superimposing hyperchloremia -increased bicarb drip to 150cc on 04/04 Elevated BNP -BNP 51809 -Echo showed EF of 68%, mild TR/MR, mild pulm HTN, borderline LVH -cardiac cath done today Depression -Psych on consult, Dr. Ramos -continue trazodone PPX -protonix, SCDs Patient seen and case discussed with Dr. Ojeda <Sagrario Ojeda - Last Filed: 04/05/18 16:39> Objective - Vital Signs/Intake and Output Vital Signs (last 24 hours): Temp Pulse Resp BP Pulse Ox 98.1 F 65 17 119/54 L 99 04/05/18 12:53 04/05/18 15:30 04/05/18 15:30 04/05/18 15:30 04/05/18 15:30 - Medications Medications: Current Medications Albuterol/Ipratropium (Duoneb 3 Mg/0.5 Mg (3 Ml) Ud) 3 ml IH [id number] [facility] Last Admin: 04/05/18 13:07 Dose: 3 ml Albuterol/Ipratropium (Duoneb 3 Mg/0.5 Mg (3 Ml) Ud) 3 ml IH Q2H PRN PRN Reason: Shortness of Breath Alprazolam (Xanax) 0.25 mg PO TID PRN; Protocol PRN Reason: anxiety/restlessness Stop: 04/11/18 18:01 Last Admin: 04/04/18 19:25 Dose: 0.25 mg Pantoprazole Sodium (Protonix 40mg Ivpb) 40 mg in 100 mls @ 20 mls/hr IVPB .Q5H [facility] Last Admin: 04/05/18 13:55 Dose: 20 mls/hr Octreotide Acetate 1,250 mcg/ (Dextrose) 252.5 mls @ 5.05 mls/hr IV .Q24H [facility]; Protocol Last Admin: 04/03/18 19:14 Dose: 25 mcg/hr, 5.05 mls/hr Iron Sucrose 100 mg/ Sodium (Chloride) 105 mls @ 210 mls/hr IVPB DAILY [facility]KAYLA Stop: 04/15/18 10:01 Last Admin: 04/05/18 10:01 Dose: 210 mls/hr Sevelamer HCl (Renagel) 800 mg PO TID [facility] Last Admin: 04/05/18 13:55 Dose: 800 mg Trazodone HCl (Desyrel) 50 mg PO HS [facility] Last Admin: 04/04/18 22:00 Dose: Not Given - Labs Labs: 04/05/18 12:45 04/05/18 06:30 PT 13.2 SECONDS (9.4-12.5) H 04/03/18 15:44 INR 1.15 04/03/18 15:44 APTT 30.7 Seconds (25.1-36.5) 04/03/18 15:44 Attending/Attestation - Attestation I have personally seen and examined this patient.: Yes I have fully participated in the care of the patient.: Yes I have reviewed all pertinent clinical information, including history, physical exam and plan: Yes Notes (Text): 04/05/18 16:33 Patient was seen and examined with medical concierge. 52 yo F with PMH with liver failure, morbid obesity, alcohol abuse ,gastric bypass surgery and depression was admitted 04/03/18 with worsening fatigue, weakness, and dark stools. Patient was found to have severe microcytic hypochromic anemia due to ongoing chronic GI bleeding, acute renal failure and severe metabolic acidosis.Hemoglobin was 2.3,Creatinin was 7.4. She is SP 8unit PRBC,Hemoglobin 7.8, Patient underwent EGD today that showed multiple gastric ulcer , no active bleeding Continue PPI Will monitor Hemoglobin and hematocrit. Acute renal failure.Patient is oligouric. Creatinin is unchanged since yesterday on Bicarbobate infusion, no evidence of hydronephrosisPatient is getting first hemodialysis today. 04/05/18 16:36
--- NOTE | 2018-04-05 17:47 | VASCULAR ---
PROCEDURE: Ultrasound and fluoroscopic tunneled right IJ dialysis catheter. CLINICAL HISTORY: ESRD PHYSICIAN(S): Ramsey Ny M.D. TECHNIQUE: The relative risks and indications for the procedure were explained to the patient and informed written consent obtained. The patient was placed supine on the arteriography table and the right neck/chest was prepped and draped in the usual sterile fashion. 1% Xylocaine was used to anesthetize the skin and soft tissues at the puncture site. Conscious sedation and monitoring were provided throughout the procedure by a nurse. Under direct ultrasound guidance, the rightinternal jugular vein was punctured with a micropuncture set. A 0.035 Glidewire was advanced into the IVC. Sequential dilatation was performed with subsequent placement of a 28cm next Gen catheter with its tip in the right atrium. A retrograde tunnel below the right clavicle was performed. The catheter was trimmed and the hub attached. Both ports aspirate and inject easily. The catheter was secured and a dressing applied. The patient tolerated the procedure well. IMPRESSION: 1. Ultrasound and fluoroscopically placed right IJ tunneled dialysis catheter.
--- NOTE | 2018-04-05 19:58 | PN ---
DATE: 04/05/2018 SUBJECTIVE: The patient was followed up today. The patient reported that she had a good night sleep. The patient reported that she likes medication which she is taking right now. The patient has lot of concerns about her medical issues. The patient was diagnosed with microcytic anemia. The patient had liver failure, kidney failure, metabolic acidosis, and many more. Depression and anxiety was area of medical team concern and that is why this copy writer was involved into the patient care. OBJECTIVE: VITAL SIGNS: Seems to be stable. MENTAL STATUS EXAM: The patient presented to be alert and oriented, easily tearful. Mood described as "I have a lot of anxiety and concerns about my health." Affect was constricted, tearful, but still reactive. Thought process seems to be coherent and goal directed. Thought content, the patient denied visual, auditory, tactile hallucinations. Denied paranoid ideation. At times, the patient feels helpless, but denied any thoughts of harming herself or others. Insight and judgment seems to be fair. Impulses are well controlled. LABORATORY DATA: Labs reviewed. Hemoglobin and hematocrit 7.8 and 23.7 today. Blood gas reviewed. Chemistry reviewed. Sodium is 139 and potassium 5.1. Toxicology reviewed. Serology reviewed. MEDICATIONS: Reviewed. IMPRESSION: Rule out mood disorder due to general medical condition, rule out major depressive disorder, rule out adjustment disorder. PLAN: Xanax as needed, trazodone at the nighttime for depression and insomnia. We will follow up and advise accordingly. Thank you very much for letting me to participate in the care of your patient. Rachel Maradiaga MD SAL
[2018-04-05 20:28] LABS: PH,URINE 5.5 (4.7-8.0); URINE BILIRUBIN NEGATIVE (NEGATIVE); URINE BLOOD LARGE (NEGATIVE); URINE GLUCOSE (UA) 100 mg/dL (NEGATIVE); URINE LEUKOCYTE ESTERASE MODERATE Leu/uL (NEGATIVE); URINE PROTEIN 30 mg/dL (<30 mg/dL); URINE UROBILINOGEN 0.2 E.U./dL (<1 E.U./dL)
[2018-04-05 20:40] LABS: URINE APPEARANCE CLOUDY (CLEAR); URINE COLOR DARK YELLOW (YELLOW); URINE RBC TNTC /hpf (0-2); URINE WBC TNTC /hpf (0-6)
[2018-04-05 20:41] LABS: URINE BACTERIA MOD /hpf
[2018-04-05 21:48] LABS: HEPATITIS B SURFACE AG Negative (NEGATIVE)
[2018-04-05 21:54] LABS: HEPATITIS B CORE AB NEGATIVE (NEGATIVE)
[2018-04-05] MEDS: Octreotide 1,250 MCG in Dextrose 5% In Water 250 ML IV SCH (22:30)
[2018-04-06] MEDS: Pantoprazole 40mg/100mL NS 40 MG/100 ML BAG IVPB SCH ×2 (01:04→07:09)
[2018-04-06] MEDS: Albuterol-Ipratrop 3 mg / 0.5 (3 ml) UD IH SCH ×4 (01:32→22:03)
[2018-04-06 08:20] LABS: ALB/GLOB RATIO 0.7 (1.1-1.8); ALBUMIN 2.5 g/dL (3.0-4.8); CALCIUM 7.1 mg/dL (8.4-10.5)
[2018-04-06 09:08] LABS: BASO # 0.03 K/mm3 (0.0-2.0); BASO % 0.4 % (0.0-3.0); EOS # 0.4 (0.0-0.7); EOS % 5.9 % (1.5-5.0); GRAN # 5.15 (1.4-6.5); GRAN % 71.1 % (50.0-68.0); HEMOGLOBIN 7.5 g/dL (12.0-16.0); LYMPH # 0.9 (1.2-3.4); LYMPH % 12.3 % (22.0-35.0); MEAN CELL VOLUME 81.9 fl (80.0-105.0); MEAN CORPUSCULAR HEMOGLOBIN 27.2 pg (25.0-35.0); MEAN CORPUSCULAR HGB CONC 33.2 g/dl (31.0-37.0); MEAN PLATELET VOLUME 8.4 fl (7.0-11.0); MONO # 0.8 (0.1-0.6); MONO % 10.3 % (1.0-6.0); RBC 2.76 10^6/uL (3.5-6.1); RED CELL DISTRIBUTION WIDTH 19.5 % (11.5-14.5); WHITE BLOOD COUNT 7.3 10^3/uL (4.5-11.0)
--- NOTE | 2018-04-06 11:46 | CP.PCM.CON ---
<FroilanRosie - Last Filed: 04/06/18 12:01> History of Present Illness - History of Present Illness History of Present Illness: Podiatry Consult: Dr. Montalvo 52F patient with PMHx of CHF, former alcohol abuse, depression, gastric surgery, morbid obesity seen and evaluated for b/l edema with weeping. She states that her legs have been weeping for several weeks to no avail. She states that she is unsure how they got so large in size and why they are draining. She does not do anything for the swelling at home. She reports mild pain to the legs however attributes it to swelling. She denies any other pedal complaints at this time. Denies N/V/F/SOB/CP. PMHx: as above PSHx: Gastric surgery SHx: Former alcohol abuse, denies elicit drug use, denies tobacco use ALL: NKDA Review of Systems - Review of Systems Review of Systems: As per HPI Past Patient History - Past Social History Smoking Status: Former Smoker - CARDIAC Hx Congestive Heart Failure: Yes - NEUROLOGICAL Hx Neurological Disorder: No - HEENT Hx HEENT Problems: No - RENAL Hx Renal Failure: Yes - HEMATOLOGICAL/ONCOLOGICAL Hx Cirrhosis: Yes - INTEGUMENTARY Hx Dermatological Problems: No - MUSCULOSKELETAL/RHEUMATOLOGICAL Hx Musculoskeletal Disorders: No Hx Falls: Yes - GASTROINTESTINAL Hx Gastrointestinal Disorders: No - GENITOURINARY/GYNECOLOGICAL Hx Genitourinary Disorders: No - PSYCHIATRIC Hx Psychophysiologic Disorder: No Hx Depression: Yes Hx Substance Use: No - SURGICAL HISTORY Hx Surgeries: Yes Hx Cholecystectomy: Yes - ANESTHESIA Hx Anesthesia: Yes Meds Allergies/Adverse Reactions: Allergies Allergy/AdvReac Type Severity Reaction Status Date / Time No Known Allergies Allergy Verified 04/03/18 14:56 - Medications Medications: Current Medications Albuterol/Ipratropium (Duoneb 3 Mg/0.5 Mg (3 Ml) Ud) 3 ml IH [id number] [facility] Last Admin: 04/06/18 08:32 Dose: 3 ml Albuterol/Ipratropium (Duoneb 3 Mg/0.5 Mg (3 Ml) Ud) 3 ml IH Q2H PRN PRN Reason: Shortness of Breath Alprazolam (Xanax) 0.25 mg PO TID PRN; Protocol PRN Reason: anxiety/restlessness Stop: 04/11/18 18:01 Last Admin: 04/06/18 00:14 Dose: 0.25 mg Iron Sucrose 100 mg/ Sodium (Chloride) 105 mls @ 210 mls/hr IVPB DAILY [facility] Stop: 04/15/18 10:01 Last Admin: 04/06/18 10:48 Dose: 210 mls/hr Pantoprazole Sodium (Protonix Inj) 40 mg IVP Q12 [facility] Last Admin: 04/06/18 10:48 Dose: 40 mg Sevelamer HCl (Renagel) 800 mg PO TID [facility] Last Admin: 04/06/18 10:48 Dose: 800 mg Trazodone HCl (Desyrel) 50 mg PO HS [facility] Last Admin: 04/05/18 22:43 Dose: 50 mg Physical Exam - Constitutional Appears: Non-toxic, No Acute Distress - Head Exam Head Exam: ATRAUMATIC, NORMOCEPHALIC - Extremities Exam Additional comments: B/L lower extremity exam: Vascular: DP/PT non palpable secondary to edema, CFT < 3 seconds, TG warm to warm, no pedal hair present, +2 pitting edema to bilateral lower extremities beg inning at the tibial tuberosity and extending distally to the digits Ortho: Tenderness to palpation of b/l lower extremities, no gross deformities noted, MMT 4/5 Neuro: Gross sensation intact, protective sensation diminished Derm: Weeping superficial ulcerations appreciated circumfrentially to bilateral lower extremities, no purulence, no tunneling, no tracking, no probe to bone. Mild erythema appreciated to bilateral LE, no streaking appreciated. - Neurological Exam Neurological exam: Alert, Oriented x3 - Psychiatric Exam Psychiatric exam: Normal Affect, Normal Mood Results - Vital Signs Recent Vital Signs: Last Vital Signs Temp 98.1 F 04/05/18 16:00 Pulse 68 04/06/18 06:00 Resp 19 04/05/18 16:15 BP 118/62 04/05/18 16:30 Pulse Ox 100 04/05/18 16:30 - Labs Result Diagrams: 04/06/18 09:00 04/06/18 06:00 Labs: Laboratory Results - last 24 hr 04/03/18 04/03/18 04/05/18 17:44 18:05 11:54 WBC RBC Hgb Hct MCV MCH MCHC RDW Plt Count MPV Gran % Lymph % (Auto) [place] % (Auto) Eos % (Auto) Baso % (Auto) Gran # Lymph # (Auto) [place] # (Auto) Eos # (Auto) Baso # (Auto) Sodium Potassium Chloride Carbon Dioxide Anion Gap BUN Creatinine Est GFR ( Amer) Est GFR (Non-Af Amer) POC Glucose (mg/dL) 100 Random Glucose Calcium Phosphorus Magnesium Total Bilirubin AST ALT Alkaline Phosphatase Total Protein Albumin Globulin Albumin/Globulin Ratio Urine Color Urine Appearance Urine pH Ur Specific Ocate Urine Protein Urine Glucose (UA) Urine Ketones Urine Blood Urine Nitrate Urine Bilirubin Urine Urobilinogen Ur Leukocyte Esterase Urine RBC Urine WBC Ur Epithelial Cells Urine Bacteria Hep Bs Antigen Hep Bs Antibody Hep B Core IgM Ab Hepatitis C Antibody Hep C Ab Signal/Cutoff Blood Type B NEGATIVE Antibody Screen Negative Crossmatch See Detail See Detail BBK History Checked No verified bt 04/05/18 04/05/18 04/05/18 12:45 12:45 12:45 WBC RBC Hgb Hct MCV MCH MCHC RDW Plt Count MPV Gran % Lymph % (Auto) [place] % (Auto) Eos % (Auto) Baso % (Auto) Gran # Lymph # (Auto) [place] # (Auto) Eos # (Auto) Baso # (Auto) Sodium Potassium Chloride Carbon Dioxide Anion Gap BUN Creatinine Est GFR ( Amer) Est GFR (Non-Af Amer) POC Glucose (mg/dL) Random Glucose Calcium Phosphorus Magnesium Total Bilirubin AST ALT Alkaline Phosphatase Total Protein Albumin Globulin Albumin/Globulin Ratio Urine Color Urine Appearance Urine pH Ur Specific Ocate Urine Protein Urine Glucose (UA) Urine Ketones Urine Blood Urine Nitrate Urine Bilirubin Urine Urobilinogen Ur Leukocyte Esterase Urine RBC Urine WBC Ur Epithelial Cells Urine Bacteria Hep Bs Antigen Negative Hep Bs Antibody Negative Hep B Core IgM Ab Negative Hepatitis C Antibody Non reactive Hep C Ab Signal/Cutoff 0.05 Blood Type Antibody Screen Crossmatch BBK History Checked 04/05/18 04/05/18 04/05/18 12:45 16:31 20:20 WBC 9.0 RBC 2.86 L Hgb 7.8 L Hct 23.7 L MCV 82.9 MCH 27.3 MCHC 32.9 RDW 19.5 H Plt Count 101 L MPV 8.1 Gran % 75.9 H Lymph % (Auto) 9.1 L [place] % (Auto) 9.8 H Eos % (Auto) 5.0 Baso % (Auto) 0.2 Gran # 6.84 H Lymph # (Auto) 0.8 L [place] # (Auto) 0.9 H Eos # (Auto) 0.5 Baso # (Auto) 0.02 Sodium Potassium Chloride Carbon Dioxide Anion Gap BUN Creatinine Est GFR ( Amer) Est GFR (Non-Af Amer) POC Glucose (mg/dL) 131 H Random Glucose Calcium Phosphorus Magnesium Total Bilirubin AST ALT Alkaline Phosphatase Total Protein Albumin Globulin Albumin/Globulin Ratio Urine Color Dark yellow Urine Appearance Cloudy Urine pH 5.5 Ur Specific Ocate 1.020 Urine Protein 30 H Urine Glucose (UA) 100 H Urine Ketones Negative Urine Blood Large H Urine Nitrate Positive H Urine Bilirubin Negative Urine Urobilinogen 0.2 Ur Leukocyte Esterase Moderate H Urine RBC Tntc H Urine WBC Tntc H Ur Epithelial Cells 10 - 12 H Urine Bacteria Mod Hep Bs Antigen Hep Bs Antibody Hep B Core IgM Ab Hepatitis C Antibody Hep C Ab Signal/Cutoff Blood Type Antibody Screen Crossmatch BBK History Checked 04/05/18 04/06/18 04/06/18 23:28 05:48 06:00 WBC RBC Hgb Hct MCV MCH MCHC RDW Plt Count MPV Gran % Lymph % (Auto) [place] % (Auto) Eos % (Auto) Baso % (Auto) Gran # Lymph # (Auto) [place] # (Auto) Eos # (Auto) Baso # (Auto) Sodium 132 Potassium 4.5 Chloride 101 Carbon Dioxide 16 L Anion Gap 18 BUN 90 H Creatinine 6.8 H Est GFR ( Amer) 8 Est GFR (Non-Af Amer) 6 POC Glucose (mg/dL) 112 H 100 Random Glucose 88 Calcium 7.1 L Phosphorus 8.5 H Magnesium 2.8 H Total Bilirubin 2.6 H AST 35 ALT 27 Alkaline Phosphatase 139 H Total Protein 6.1 Albumin 2.5 L Globulin 3.6 Albumin/Globulin Ratio 0.7 L Urine Color Urine Appearance Urine pH Ur Specific Ocate Urine Protein Urine Glucose (UA) Urine Ketones Urine Blood Urine Nitrate Urine Bilirubin Urine Urobilinogen Ur Leukocyte Esterase Urine RBC Urine WBC Ur Epithelial Cells Urine Bacteria Hep Bs Antigen Hep Bs Antibody Hep B Core IgM Ab Hepatitis C Antibody Hep C Ab Signal/Cutoff Blood Type Antibody Screen Crossmatch BBK History Checked 04/06/18 04/06/18 09:00 10:00 WBC 7.3 RBC 2.76 L Hgb 7.5 L Hct 22.6 L MCV 81.9 MCH 27.2 MCHC 33.2 RDW 19.5 H Plt Count 78 L MPV 8.4 Gran % 71.1 H Lymph % (Auto) 12.3 L [place] % (Auto) 10.3 H Eos % (Auto) 5.9 H Baso % (Auto) 0.4 Gran # 5.15 Lymph # (Auto) 0.9 L [place] # (Auto) 0.8 H Eos # (Auto) 0.4 Baso # (Auto) 0.03 Sodium Potassium Chloride Carbon Dioxide Anion Gap BUN Creatinine Est GFR ( Amer) Est GFR (Non-Af Amer) POC Glucose (mg/dL) Random Glucose Calcium Phosphorus Magnesium Total Bilirubin AST ALT Alkaline Phosphatase Total Protein Albumin Globulin Albumin/Globulin Ratio Urine Color Urine Appearance Urine pH Ur Specific Ocate Urine Protein Urine Glucose (UA) Urine Ketones Urine Blood Urine Nitrate Urine Bilirubin Urine Urobilinogen Ur Leukocyte Esterase Urine RBC Urine WBC Ur Epithelial Cells Urine Bacteria Hep Bs Antigen Hep Bs Antibody Hep B Core IgM Ab Hepatitis C Antibody Hep C Ab Signal/Cutoff Blood Type B NEGATIVE Antibody Screen Negative Crossmatch See Detail BBK History Checked Patient has bt Assessment & Plan - Assessment and Plan (Free Text) Assessment: 52F patient with PMHx of alcohol abuse, depression, gastric surgery, morbid obesity seen and evaluated for b/l edema with significant weeping. Plan: Patient seen and evaluated with all questions and concerns addressed Chart, vitals, labs reviewed; afebrile, absent leukocytosis B/L LE US; no evidence of DVT to bilateral lower extremities Wound culture take from L heel; results pending Local wound care: L lower extremity dressed with DSD, PRUDENCIO, R lower extremity d ressed with Xeroform, DSD, PRUDENCIO Patient informed to keep her legs elevated at all times to help control the swelling Will continue to follow Thank you for the consult and allowing us to partake in the care of this patient - Date & Time Date: 04/06/18 Time: 11:45 <Bart Montalvo - Last Filed: 04/06/18 14:29> Meds - Medications Medications: Current Medications Albuterol/Ipratropium (Duoneb 3 Mg/0.5 Mg (3 Ml) Ud) 3 ml IH [id number] [facility] Last Admin: 04/06/18 14:16 Dose: Not Given Albuterol/Ipratropium (Duoneb 3 Mg/0.5 Mg (3 Ml) Ud) 3 ml IH Q2H PRN PRN Reason: Shortness of Breath Alprazolam (Xanax) 0.25 mg PO TID PRN; Protocol PRN Reason: anxiety/restlessness Stop: 04/11/18 18:01 Last Admin: 04/06/18 00:14 Dose: 0.25 mg Iron Sucrose 100 mg/ Sodium (Chloride) 105 mls @ 210 mls/hr IVPB DAILY [facility] Stop: 04/15/18 10:01 Last Admin: 04/06/18 10:48 Dose: 210 mls/hr Pantoprazole Sodium (Protonix Inj) 40 mg IVP Q12 [facility] Last Admin: 04/06/18 10:48 Dose: 40 mg Sevelamer HCl (Renagel) 800 mg PO TID [facility] Last Admin: 04/06/18 10:48 Dose: 800 mg Trazodone HCl (Desyrel) 50 mg PO HS [facility] Last Admin: 04/05/18 22:43 Dose: 50 mg Vitamin B Complex/Vit C/Folic Acid (Nephro-Bhupinder) 1 tab PO 0800 [facility] Results - Vital Signs Recent Vital Signs: Last Vital Signs Temp 98.1 F 04/05/18 16:00 Pulse 77 04/06/18 14:00 Resp 23 04/06/18 14:00 BP 171/89 H 04/06/18 14:00 Pulse Ox 100 04/06/18 12:01 - Labs Result Diagrams: 04/06/18 09:00 04/06/18 06:00 Labs: Laboratory Results - last 24 hr 04/03/18 04/03/18 04/05/18 17:44 18:05 11:54 WBC RBC Hgb Hct MCV MCH MCHC RDW Plt Count MPV Gran % Lymph % (Auto) [place] % (Auto) Eos % (Auto) Baso % (Auto) Gran # Lymph # (Auto) [place] # (Auto) Eos # (Auto) Baso # (Auto) Sodium Potassium Chloride Carbon Dioxide Anion Gap BUN Creatinine Est GFR ( Amer) Est GFR (Non-Af Amer) POC Glucose (mg/dL) 100 Random Glucose Calcium Phosphorus Magnesium Total Bilirubin AST ALT Alkaline Phosphatase Total Protein Albumin Globulin Albumin/Globulin Ratio Urine Color Urine Appearance Urine pH Ur Specific Ocate Urine Protein Urine Glucose (UA) Urine Ketones Urine Blood Urine Nitrate Urine Bilirubin Urine Urobilinogen Ur Leukocyte Esterase Urine RBC Urine WBC Ur Epithelial Cells Urine Bacteria Hep Bs Antigen Hep Bs Antibody Hep B Core IgM Ab Hepatitis C Antibody Hep C Ab Signal/Cutoff Blood Type B NEGATIVE Antibody Screen Negative Crossmatch See Detail See Detail BBK History Checked No verified bt 04/05/18 04/05/18 04/05/18 12:45 12:45 12:45 WBC RBC Hgb Hct MCV MCH MCHC RDW Plt Count MPV Gran % Lymph % (Auto) [place] % (Auto) Eos % (Auto) Baso % (Auto) Gran # Lymph # (Auto) [place] # (Auto) Eos # (Auto) Baso # (Auto) Sodium Potassium Chloride Carbon Dioxide Anion Gap BUN Creatinine Est GFR ( Amer) Est GFR (Non-Af Amer) POC Glucose (mg/dL) Random Glucose Calcium Phosphorus Magnesium Total Bilirubin AST ALT Alkaline Phosphatase Total Protein Albumin Globulin Albumin/Globulin Ratio Urine Color Urine Appearance Urine pH Ur Specific Ocate Urine Protein Urine Glucose (UA) Urine Ketones Urine Blood Urine Nitrate Urine Bilirubin Urine Urobilinogen Ur Leukocyte Esterase Urine RBC Urine WBC Ur Epithelial Cells Urine Bacteria Hep Bs Antigen Negative Hep Bs Antibody Negative Hep B Core IgM Ab Negative Hepatitis C Antibody Non reactive Hep C Ab Signal/Cutoff 0.05 Blood Type Antibody Screen Crossmatch BBK History Checked 04/05/18 04/05/18 04/05/18 16:31 20:20 23:28 WBC RBC Hgb Hct MCV MCH MCHC RDW Plt Count MPV Gran % Lymph % (Auto) [place] % (Auto) Eos % (Auto) Baso % (Auto) Gran # Lymph # (Auto) [place] # (Auto) Eos # (Auto) Baso # (Auto) Sodium Potassium Chloride Carbon Dioxide Anion Gap BUN Creatinine Est GFR ( Amer) Est GFR (Non-Af Amer) POC Glucose (mg/dL) 131 H 112 H Random Glucose Calcium Phosphorus Magnesium Total Bilirubin AST ALT Alkaline Phosphatase Total Protein Albumin Globulin Albumin/Globulin Ratio Urine Color Dark yellow Urine Appearance Cloudy Urine pH 5.5 Ur Specific Ocate 1.020 Urine Protein 30 H Urine Glucose (UA) 100 H Urine Ketones Negative Urine Blood Large H Urine Nitrate Positive H Urine Bilirubin Negative Urine Urobilinogen 0.2 Ur Leukocyte Esterase Moderate H Urine RBC Tntc H Urine WBC Tntc H Ur Epithelial Cells 10 - 12 H Urine Bacteria Mod Hep Bs Antigen Hep Bs Antibody Hep B Core IgM Ab Hepatitis C Antibody Hep C Ab Signal/Cutoff Blood Type Antibody Screen Crossmatch BBK History Checked 04/06/18 04/06/18 04/06/18 05:48 06:00 09:00 WBC 7.3 RBC 2.76 L Hgb 7.5 L Hct 22.6 L MCV 81.9 MCH 27.2 MCHC 33.2 RDW 19.5 H Plt Count 78 L MPV 8.4 Gran % 71.1 H Lymph % (Auto) 12.3 L [place] % (Auto) 10.3 H Eos % (Auto) 5.9 H Baso % (Auto) 0.4 Gran # 5.15 Lymph # (Auto) 0.9 L [place] # (Auto) 0.8 H Eos # (Auto) 0.4 Baso # (Auto) 0.03 Sodium 132 Potassium 4.5 Chloride 101 Carbon Dioxide 16 L Anion Gap 18 BUN 90 H Creatinine 6.8 H Est GFR ( Amer) 8 Est GFR (Non-Af Amer) 6 POC Glucose (mg/dL) 100 Random Glucose 88 Calcium 7.1 L Phosphorus 8.5 H Magnesium 2.8 H Total Bilirubin 2.6 H AST 35 ALT 27 Alkaline Phosphatase 139 H Total Protein 6.1 Albumin 2.5 L Globulin 3.6 Albumin/Globulin Ratio 0.7 L Urine Color Urine Appearance Urine pH Ur Specific Ocate Urine Protein Urine Glucose (UA) Urine Ketones Urine Blood Urine Nitrate Urine Bilirubin Urine Urobilinogen Ur Leukocyte Esterase Urine RBC Urine WBC Ur Epithelial Cells Urine Bacteria Hep Bs Antigen Hep Bs Antibody Hep B Core IgM Ab Hepatitis C Antibody Hep C Ab Signal/Cutoff Blood Type Antibody Screen Crossmatch BBK History Checked 04/06/18 04/06/18 10:00 12:08 WBC RBC Hgb Hct MCV MCH MCHC RDW Plt Count MPV Gran % Lymph % (Auto) [place] % (Auto) Eos % (Auto) Baso % (Auto) Gran # Lymph # (Auto) [place] # (Auto) Eos # (Auto) Baso # (Auto) Sodium Potassium Chloride Carbon Dioxide Anion Gap BUN Creatinine Est GFR ( Amer) Est GFR (Non-Af Amer) POC Glucose (mg/dL) 140 H Random Glucose Calcium Phosphorus Magnesium Total Bilirubin AST ALT Alkaline Phosphatase Total Protein Albumin Globulin Albumin/Globulin Ratio Urine Color Urine Appearance Urine pH Ur Specific Ocate Urine Protein Urine Glucose (UA) Urine Ketones Urine Blood Urine Nitrate Urine Bilirubin Urine Urobilinogen Ur Leukocyte Esterase Urine RBC Urine WBC Ur Epithelial Cells Urine Bacteria Hep Bs Antigen Hep Bs Antibody Hep B Core IgM Ab Hepatitis C Antibody Hep C Ab Signal/Cutoff Blood Type B NEGATIVE Antibody Screen Negative Crossmatch See Detail BBK History Checked Patient has bt Attending/Attestation - Attestation I have personally seen and examined this patient.: Yes I have fully participated in the care of the patient.: Yes I have reviewed all pertinent clinical information: Yes
--- NOTE | 2018-04-06 11:49 | CP.PCM.PN ---
Subjective - Date & Time of Evaluation Date of Evaluation: 04/06/18 Time of Evaluation: 11:48 - Subjective Subjective: Nephrology Consultation Note: Assessment: critical oligoanuric Acute Kidney Injury (N17.9) likely due to ATN, pre-renal state, intrasvasc hypovolemia, impaired renal perfusion anasarca severe symptomatic anemia due to GI bleed with gastric ulcers mild hyperkalemia and HAGMA, hyperphos hx of cirrhosis and etoh intra-ab lymphadenopathy morbid obesity Plan HD 04/05/18: first session as ordered. HD today tolerated well next HD tomorrow Maintain hemodynamics stable. Avoid hypotension. Patient not on ACEI/ARB due to recent FELIPE Monitor Input/Output, daily weights and renal function with basic metabolic panel added phos binders PRBC as per ICU. started IV iron GI consult pt on PPI work up for FELIPE and anemia as ordered Dose meds/antibiotics for reduced GFR. Avoid fleets enema/magnesium based laxatives. Avoid nephrotoxins/NSAIDs/ iodinated contrast (unless needed emergently) Glycemic control Further work up/management as per primary team Thanks for allowing me to participate in care of your patient. Will follow patient with you. Please call if any Qs. had d/w team Dr Kenji Salmeron Office: [phone] Chief Complaint; fatigue Reason for consult: Acute Kidney Injury HPI: Pt is a 52 F with hx of alcoholism in past, cirrhosis (pt states got better on its own in past) but no regular follow up with PMD presented with complaints of fatigue and tiredness for last few days, found to have severe anemia and FELIPE Denies OTC/herbal meds but NSAIDs as alleve for last few days No recent iodinated contrast exposure. Noted obvious episodes of low BP. reports chronic leg swelling but more now denies smoking or etoh now ROS: c/o swelling in leg. had gastric ulcers on EGD Cardiovascular: No chest pain. Pulmonary: No shortness of breath Gastrointestinal: denies abdominal pain No nausea. No vomiting. Genitourinary: No pain while urinating. Denies blood in urine. All other negative except as mentioned in HPI Physical Examination: General Appearance: Comfortable, in no acute respiratory distress, co-operative . morbid obese Vitals reviewed and noted as below Head; Atraumatic, normocephalic ENT: no ulcers no thrush. Tongue is midline. Oropharynx: no rash or ulcers. EYES: Pupils are equal, round and reactive to light accommodation. Eye muscles and extraocular movement intact. Sclera is anicteric. Neck; supple no lymphadenopathy, no thyromegaly or bruit Lungs: Normal respiratory rate/effort. Breath sounds bilateral reduced at bases Heart: Normal rate. s1s2 normal. No rub or gallop. Extremities: 3+ edema. No varicose veins Neurological: Patient is alert, awake and oriented to person, place and time. No focal deficit. Strength bilateral appropriate and equal Skin: Warm and dry. Normal turgor. spider angioma rash upper chest. Palpitation: Normal elasticity for age Abdomen: Abdomen is soft. Bowel sounds +. There is no abdominal tenderness, no guarding/rigidity no organomegaly. limited due to obesity and abd wall edema Psych: normal insight and normal affect/mood MSK: no joint tenderness or swelling. Digits and nails normal, no deformity : kidney or bladder not palpable. has lee has access as permacath Labs/imaging reviewed. Past medical history, past surgical history, family history, social history, allergy reviewed and noted as below Family hx: no hx of CKD. Rest non-contributory fena 0.3% intra-ab lymphadenopathy Objective - Vital Signs/Intake and Output Vital Signs (last 24 hours): Temp Pulse Resp BP Pulse Ox 98.1 F 68 19 118/62 100 04/05/18 16:00 04/06/18 06:00 04/05/18 16:15 04/05/18 16:30 04/05/18 16:30 Intake and Output: 04/06/18 04/06/18 06:59 18:59 Intake Total 300 Output Total 50 Balance 250 - Medications Medications: Current Medications Albuterol/Ipratropium (Duoneb 3 Mg/0.5 Mg (3 Ml) Ud) 3 ml IH [id number] [facility] Last Admin: 04/06/18 08:32 Dose: 3 ml Albuterol/Ipratropium (Duoneb 3 Mg/0.5 Mg (3 Ml) Ud) 3 ml IH Q2H PRN PRN Reason: Shortness of Breath Alprazolam (Xanax) 0.25 mg PO TID PRN; Protocol PRN Reason: anxiety/restlessness Stop: 04/11/18 18:01 Last Admin: 04/06/18 00:14 Dose: 0.25 mg Iron Sucrose 100 mg/ Sodium (Chloride) 105 mls @ 210 mls/hr IVPB DAILY [facility] Stop: 04/15/18 10:01 Last Admin: 04/06/18 10:48 Dose: 210 mls/hr Pantoprazole Sodium (Protonix Inj) 40 mg IVP Q12 [facility] Last Admin: 04/06/18 10:48 Dose: 40 mg Sevelamer HCl (Renagel) 800 mg PO TID [facility] Last Admin: 04/06/18 10:48 Dose: 800 mg Trazodone HCl (Desyrel) 50 mg PO HS [facility] Last Admin: 04/05/18 22:43 Dose: 50 mg - Labs Labs: 04/06/18 09:00 04/06/18 06:00 PT 13.2 SECONDS (9.4-12.5) H 04/03/18 15:44 INR 1.15 04/03/18 15:44 APTT 30.7 Seconds (25.1-36.5) 04/03/18 15:44
--- NOTE | 2018-04-06 12:50 | PN ---
DATE: 04/06/2018 SUBJECTIVE: The patient is lying in bed. She has not had any further bowel movements. She has not had any melena, hematemesis, nausea, vomiting. She is hungry and requesting to eat. She is about to undergo hemodialysis. Her hemoglobin this morning is at 7.8. She has received 9 units of packed red blood cells after being admitted to the hospital with a hemoglobin of 2.3. Upper endoscopy yesterday revealed three 8 mm ulcers in a small gastric pouch. She is status post gastric bypass for morbid obesity. PHYSICAL EXAMINATION: VITAL SIGNS: Reveal temperature of 98, heart rate of 66, blood pressure 118/62. HEENT: Reveal sclerae to be white. Conjunctivae pale. NECK: Supple. CHEST: Reveal lungs have distant breath sounds. HEART: Reveals regular rate and rhythm. ABDOMEN: Obese, soft, nontender. EXTREMITIES: Show 2+ pitting edema with elephantiasis. LABORATORY DATA: From this morning reveal BUN 90, creatinine 6.8. Serologies are negative for hepatitis A, B and C. CBC from this morning reveal hemoglobin of 7.8, white blood cell count 9. IMPRESSION: A 52-year-old female with profound anemia with an admitting hemoglobin of 2.3 with acute renal failure, anasarca, volume overload. The etiology of her anemia is multifactorial including gastrointestinal blood loss from her ulcers, kidney failure and possible iron and B12 folate deficiency given her history of gastric bypass. RECOMMENDATIONS: We will transfuse another unit of packed red blood cells. The patient also may benefit from iron infusions. Advance diet. Follow serial hematocrits. Be Melo MD
--- NOTE | 2018-04-06 14:06 | CP.PCM.PN ---
<Nhung Anne - Last Filed: 04/06/18 16:28> Subjective - Date & Time of Evaluation Date of Evaluation: 04/06/18 Time of Evaluation: 09:15 - Subjective Subjective: Nhung Anne PGY1 Hospital Progress Note Patient seen and examined at bedside this morning. No acute events overnight. Removed 2.5L from HD yesterday, receiving HD today. Tolerating diet without complaints, states she feels overall much better. Offers no complaints. Objective - Vital Signs/Intake and Output Vital Signs (last 24 hours): Temp Pulse Resp BP Pulse Ox 98.1 F 68 19 118/62 100 04/05/18 16:00 04/06/18 06:00 04/05/18 16:15 04/05/18 16:30 04/05/18 16:30 Intake and Output: 04/06/18 04/06/18 06:59 18:59 Intake Total 300 Output Total 50 Balance 250 - Medications Medications: Current Medications Albuterol/Ipratropium (Duoneb 3 Mg/0.5 Mg (3 Ml) Ud) 3 ml IH [id number] [facility] Last Admin: 04/06/18 08:32 Dose: 3 ml Albuterol/Ipratropium (Duoneb 3 Mg/0.5 Mg (3 Ml) Ud) 3 ml IH Q2H PRN PRN Reason: Shortness of Breath Alprazolam (Xanax) 0.25 mg PO TID PRN; Protocol PRN Reason: anxiety/restlessness Stop: 04/11/18 18:01 Last Admin: 04/06/18 00:14 Dose: 0.25 mg Iron Sucrose 100 mg/ Sodium (Chloride) 105 mls @ 210 mls/hr IVPB DAILY [facility] Stop: 04/15/18 10:01 Last Admin: 04/06/18 10:48 Dose: 210 mls/hr Pantoprazole Sodium (Protonix Inj) 40 mg IVP Q12 [facility] Last Admin: 04/06/18 10:48 Dose: 40 mg Sevelamer HCl (Renagel) 800 mg PO TID [facility] Last Admin: 04/06/18 10:48 Dose: 800 mg Trazodone HCl (Desyrel) 50 mg PO HS [facility] Last Admin: 04/05/18 22:43 Dose: 50 mg Vitamin B Complex/Vit C/Folic Acid (Nephro-Bhupinder) 1 tab PO 0800 [facility] - Labs Labs: 04/06/18 09:00 04/06/18 06:00 PT 13.2 SECONDS (9.4-12.5) H 04/03/18 15:44 INR 1.15 04/03/18 15:44 APTT 30.7 Seconds (25.1-36.5) 04/03/18 15:44 - Additional Findings Additional findings: - Constitutional Appears: No Acute Distress - Head Exam Head Exam: NORMAL INSPECTION, ATRAUMATIC - Eye Exam Eye Exam: EOMI, PERRL Additional comments: conjunctival pallor noted, improved from yesterday - ENT Exam ENT Exam: Mucous Membranes Moist, Normal Exam - Neck Exam Neck exam: Positive for: Normal Inspection - Respiratory Exam Respiratory Exam: Clear to Auscultation Bilateral. absent: Rales, Rhonchi, Wheezes, respiratory distress - Cardiovascular Exam Cardiovascular Exam: Regular rhythm, +S1, +S2. absent: Systolic Murmur - GI/Abdominal Exam GI & Abdominal Exam: Soft. Bowel sounds heard in all 4 quadrants absent: Distended, Guarding, Rebound, Tenderness - Extremities Exam Extremities exam: Positive for: pedal edema Additional comments: 3+ edema diffuse noted on both legs - draining clear fluid today - Neurological Exam Neurological exam: Alert, CN II-XII Intact, Oriented x3 - Skin Skin Exam: Dry, Intact and Pallor Assessment and Plan - Assessment and Plan (Free Text) Assessment: Patient is a 52 yo F with PMH liver failure, morbid obesity, and EtOH abuse [place] [facility] [place]. Patient likely to have a GI bleed with Hgb of 2.3 and guaiac positive exam. Patient is also noted to be in renal failure. Plan: Microcytic Anemia -Hg is 7.5 today from 7.8 yesterday. S/p 9 units total -octreotide drip stopped today -started IV iron today -endoscopy showed 3 non bleeding gastric ulcers, largest one 8mm. Recomm endations include liquid diet -iron studies shows likely iron deficiency -Head CT is unremarkable -CTAP shows adenopathy of the hepatic gastric ligament -Extremity US shows no DVT -blood culture shows no growth after 48 hours -GI on consult, Dr. Melo Acute Renal Failure -Cr 6.3 today, improving -HD yesterday removed 2.5L, HD in AM today and HD planned for tomorrow as well. -Renal US is unremarkable -phosphate binder (renagel) started today -urine output of 70cc today, continues to have poor output -Strict I's and O's -consider lasix of CXR shows worsening congestion -Nephrology on consult, Dr. Faviola Thomas leg fluid weeping -podiatry on consult -wound culture pending -local wound care Metabolic Acidosis -initial pH 7.26, HCO3 11, pCO2 22 -Repeat ABG shows anion gap metabolic acidosis with negative delta delta gap significant for superimposing hyperchloremia -increased bicarb drip to 150cc on 04/04 Elevated BNP -BNP 42402 -Echo showed EF of 68%, mild TR/MR, mild pulm HTN, borderline LVH Depression -Psych on consult, Dr. Ramos -continue trazodone PPX/Diet -protonix, SCDs -renal diet Patient seen and case discussed with Dr. Ross <Miko Ross - Last Filed: 04/06/18 16:43> Objective - Vital Signs/Intake and Output Vital Signs (last 24 hours): Temp Pulse Resp BP Pulse Ox 97.6 F 76 18 112/53 L 100 04/06/18 15:51 04/06/18 15:51 04/06/18 15:51 04/06/18 15:51 04/06/18 12:01 Intake and Output: 04/06/18 04/06/18 06:59 18:59 Intake Total 300 0 Output Total 50 Balance 250 0 - Medications Medications: Current Medications Albuterol/Ipratropium (Duoneb 3 Mg/0.5 Mg (3 Ml) Ud) 3 ml IH [id number] [facility] Last Admin: 04/06/18 14:16 Dose: Not Given Albuterol/Ipratropium (Duoneb 3 Mg/0.5 Mg (3 Ml) Ud) 3 ml IH Q2H PRN PRN Reason: Shortness of Breath Alprazolam (Xanax) 0.25 mg PO TID PRN; Protocol PRN Reason: anxiety/restlessness Stop: 04/11/18 18:01 Last Admin: 04/06/18 00:14 Dose: 0.25 mg Iron Sucrose 100 mg/ Sodium (Chloride) 105 mls @ 210 mls/hr IVPB DAILY [facility] Stop: 04/15/18 10:01 Last Admin: 04/06/18 10:48 Dose: 210 mls/hr Pantoprazole Sodium (Protonix Inj) 40 mg IVP Q12 [facility] Last Admin: 04/06/18 10:48 Dose: 40 mg Sevelamer HCl (Renagel) 800 mg PO TID [facility] Last Admin: 04/06/18 15:19 Dose: 800 mg Trazodone HCl (Desyrel) 50 mg PO HS [facility] Last Admin: 04/05/18 22:43 Dose: 50 mg Vitamin B Complex/Vit C/Folic Acid (Nephro-Bhupinder) 1 tab PO 0800 [facility] - Labs Labs: 04/06/18 09:00 04/06/18 06:00 PT 13.2 SECONDS (9.4-12.5) H 04/03/18 15:44 INR 1.15 04/03/18 15:44 APTT 30.7 Seconds (25.1-36.5) 04/03/18 15:44 Attending/Attestation - Attestation I have personally seen and examined this patient.: Yes I have fully participated in the care of the patient.: Yes I have reviewed all pertinent clinical information, including history, physical exam and plan: Yes Notes (Text): 04/06/18 16:36 52 year old female with past medical history of liver failure, alcohol abuse, depression and gastric bypass surgery who presented with complaint of generalized weakness, fatigue and dark stools. She was found to have acute microcytic anemia and severe metabolic acidosis with acute renal failure. She is s/p multiple PRBC transfusions. She is s/p EGD which showed multiple gastric ulcers. She is on protonix. S/p octreotide. Continue to monitory CBC closely. H/H has been stable. Patient is started on iv iron. Nephrology is following for FELPIE and metabolic acidosis. Patient has bee started on hemodialysis. Bilateral LE swelling and weeping noted on examination. Continue with local wound care. Podiatry evaluation is requested. Miko Ross MD Hospitalist.
--- NOTE | 2018-04-06 20:03 | PN ---
DATE: 04/06/2018 SUBJECTIVE: Shortly, the patient was followed up today. The patient reported that she did not have a good night sleep. The patient reported that she was feeling anxious. The patient reported that her medical issues are overwhelming for her. 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 The patient agreed. The patient is taking Xanax as needed for anxiety and tolerated that well. OBJECTIVE: VITAL SIGNS: Reviewed. Temperature 97.6, blood pressure 112/53, and respirations 18. MENTAL STATUS EXAM: The patient presented to be alert, oriented, and pleasant. Fair eye contact. Mood described as depressed and anxious. Affect at times tearful, mood congruent. Thought process coherent and goal directed. Thought content, the patient at times reported to feel helpless, but denied any thoughts of harming herself or others. The patient is not psychotic. Insight and judgments are fair. Impulses are well controlled. MEDICATIONS: Reviewed. The patient is on DuoNeb, Xanax, Protonix, Renagel, trazodone will be increased to 100 mg and vitamin B complex. LABORATORY DATA: Reviewed. Most recent was from today, still has low hemoglobin and hematocrit level. Microbiology reports reviewed. As per medical team, the patient started hemodialysis. IMPRESSION: Rule out mood disorder due to general medical condition, rule out major depressive disorder, rule out generalized anxiety disorder. PLAN: Continue current management. Continue current medications. The patient will be seen by Dr. Saxena and advise accordingly. Thank you very much for letting me to participate in the care of your patient. Rachel Maradiaga MD SAL
[2018-04-07] MEDS: Albuterol-Ipratrop 3 mg / 0.5 (3 ml) UD IH SCH ×4 (01:16→20:05)
--- NOTE | 2018-04-07 07:05 | CP.PCM.PN ---
<Ysabel Woodard L - Last Filed: 04/07/18 16:58> Subjective - Date & Time of Evaluation Date of Evaluation: 04/07/18 Time of Evaluation: 07:05 - Subjective Subjective: Resident Progress Note for Hospitalist Service Patient examined at bedside. No acute events overnight. Patient is s/p hemodialysis with 2.5 L removed. Foot dressing applied bilaterally during dialysis. Offers no complaints at this time. Denies fevers, chills, chest pain, shortness of breath, abdominal pain, diarrhea. Objective - Vital Signs/Intake and Output Vital Signs (last 24 hours): Temp Pulse Resp BP Pulse Ox 97.5 F L 70 20 107/60 94 L 04/07/18 06:00 04/07/18 06:00 04/07/18 06:00 04/07/18 06:00 04/07/18 06:00 Intake and Output: 04/07/18 04/07/18 06:59 18:59 Intake Total 240 Output Total 150 Balance 90 - Medications Medications: Current Medications Albuterol/Ipratropium (Duoneb 3 Mg/0.5 Mg (3 Ml) Ud) 3 ml IH [id number] [facility] Last Admin: 04/07/18 01:16 Dose: Not Given Albuterol/Ipratropium (Duoneb 3 Mg/0.5 Mg (3 Ml) Ud) 3 ml IH Q2H PRN PRN Reason: Shortness of Breath Alprazolam (Xanax) 0.25 mg PO TID PRN; Protocol PRN Reason: anxiety/restlessness Stop: 04/11/18 18:01 Last Admin: 04/06/18 00:14 Dose: 0.25 mg Iron Sucrose 100 mg/ Sodium (Chloride) 105 mls @ 210 mls/hr IVPB DAILY [facility] Stop: 04/15/18 10:01 Last Admin: 04/06/18 10:48 Dose: 210 mls/hr Pantoprazole Sodium (Protonix Inj) 40 mg IVP Q12 [facility] Last Admin: 04/06/18 21:39 Dose: 40 mg Sevelamer HCl (Renagel) 800 mg PO TID [facility] Last Admin: 04/06/18 17:23 Dose: 800 mg Trazodone HCl (Desyrel) 100 mg PO HS [facility] Last Admin: 04/06/18 21:39 Dose: 100 mg Vitamin B Complex/Vit C/Folic Acid (Nephro-Bhupinder) 1 tab PO 0800 [facility] - Labs Labs: 04/06/18 09:00 04/06/18 06:00 PT 13.2 SECONDS (9.4-12.5) H 04/03/18 15:44 INR 1.15 04/03/18 15:44 APTT 30.7 Seconds (25.1-36.5) 04/03/18 15:44 - Additional Findings Additional findings: - Constitutional Appears: No Acute Distress - Head Exam Head Exam: NORMAL INSPECTION, ATRAUMATIC - Eye Exam Eye Exam: EOMI - ENT Exam ENT Exam: Mucous Membranes Moist, Normal Exam - Neck Exam Neck exam: Positive for: Normal Inspection - Respiratory Exam Respiratory Exam: Clear to Auscultation Bilateral. absent: Rales, Rhonchi, Wheezes, respiratory distress - Cardiovascular Exam Cardiovascular Exam: Regular rhythm, +S1, +S2. absent: Systolic Murmur - GI/Abdominal Exam GI & Abdominal Exam: Soft. Bowel sounds heard in all 4 quadrants absent: Distended, Guarding, Rebound, Tenderness - Extremities Exam Extremities exam: Positive for: pedal edema Additional comments: 3+ edema on bilateral lower extremities, dressing applied lee in place - Neurological Exam Neurological exam: Alert, CN II-XII Intact, Oriented x3 - Skin Skin Exam: Dry, Intact and Pallor Assessment and Plan - Assessment and Plan (Free Text) Assessment: Patient is a 52 yo F with past medical history liver failure, morbid obesity, and EtOH abuse presents to [facility] [place] for worsening weakness and admitted for management of anemia and FELIPE with metabolic acidosis. Plan: Microcytic anemia -s/p 11 units pRBCs, 2 FFPs -Venofer 100 mg IV daily -endoscopy showed 3 non bleeding gastric ulcers, largest one 8mm -iron studies shows likely iron deficiency -Head CT unremarkable -CTAP shows adenopathy of the hepatic gastric ligament -Extremity US shows no DVT -BCx x2 neg to date, UCx gram neg golden -GI on consult, Dr. Melo Acute renal failure -Cr improving -HD today removed 2.5L, plan for next HD Monday -Renal US is unremarkable -Renagel 800 mg PO TID -Strict I's and O's -consider lasix of CXR shows worsening congestion -Nephrology on consult, Dr. Faviola B/L leg fluid weeping -podiatry on consult -WCx gram neg golden, gram pos cocci -local wound care Metabolic acidosis -initial pH 7.26, HCO3 11, pCO2 22 -Repeat ABG shows anion gap metabolic acidosis with negative delta delta gap significant for superimposing hyperchloremia Elevated BNP -BNP 79402 on admission -Echo showed EF of 68%, mild TR/MR, mild pulm HTN, borderline LVH Depression -Psych on consult, Dr. Ramos -continue trazodone PPX/Diet -protonix -heparin and SCDs currently contraindicated -renal diet Patient seen and case discussed with Dr. Cody Woodard PGY-1 <Miko Ross - Last Filed: 04/07/18 18:08> Objective - Vital Signs/Intake and Output Vital Signs (last 24 hours): Temp Pulse Resp BP Pulse Ox 98.5 F 77 18 112/57 L 94 L 04/07/18 12:00 04/07/18 14:00 04/07/18 12:00 04/07/18 12:00 04/07/18 06:00 Intake and Output: 04/07/18 04/07/18 06:59 18:59 Intake Total 240 Output Total 150 Balance 90 - Medications Medications: Current Medications Albuterol/Ipratropium (Duoneb 3 Mg/0.5 Mg (3 Ml) Ud) 3 ml IH [id number] [facility] Last Admin: 04/07/18 14:12 Dose: 3 ml Albuterol/Ipratropium (Duoneb 3 Mg/0.5 Mg (3 Ml) Ud) 3 ml IH Q2H PRN PRN Reason: Shortness of Breath Alprazolam (Xanax) 0.25 mg PO TID PRN; Protocol PRN Reason: anxiety/restlessness Stop: 04/11/18 18:01 Last Admin: 04/06/18 00:14 Dose: 0.25 mg Darbepoetin Fletcher (Aranesp) 100 mcg IVP QWK [facility] Last Admin: 04/07/18 12:32 Dose: 100 mcg Iron Sucrose 100 mg/ Sodium (Chloride) 105 mls @ 210 mls/hr IVPB DAILY [facility] Stop: 04/15/18 10:01 Last Admin: 04/07/18 09:04 Dose: 210 mls/hr Pantoprazole Sodium (Protonix Inj) 40 mg IVP Q12 [facility] Last Admin: 04/07/18 09:49 Dose: Not Given Sevelamer HCl (Renagel) 800 mg PO TID [facility] Last Admin: 04/07/18 17:35 Dose: 800 mg Trazodone HCl (Desyrel) 100 mg PO HS [id number] Last Admin: 04/06/18 21:39 Dose: 100 mg Vitamin B Complex/Vit C/Folic Acid (Nephro-Bhupinder) 1 tab PO 0800 [facility] Last Admin: 04/07/18 08:08 Dose: Not Given - Labs Labs: 04/07/18 08:30 04/07/18 08:30 PT 13.2 SECONDS (9.4-12.5) H 04/03/18 15:44 INR 1.15 04/03/18 15:44 APTT 30.7 Seconds (25.1-36.5) 04/03/18 15:44 Attending/Attestation - Attestation I have personally seen and examined this patient.: Yes I have fully participated in the care of the patient.: Yes I have reviewed all pertinent clinical information, including history, physical exam and plan: Yes Notes (Text): 04/07/18 18:07 52 year old female with past medical history of liver failure, alcohol abuse, depression and gastric bypass surgery who presented with complaint of generalized weakness, fatigue and dark stools. She was found to have acute microcytic anemia and severe metabolic acidosis with acute renal failure. She is s/p multiple PRBC transfusions. She is s/p EGD which showed multiple gastric ulcers. She is on protonix and s/p octreotide. Continue to monitory CBC closely. H/H has been stable. Patient is started on iv iron. Nephrology is following for FELIPE and metabolic acidosis. Patient has been started on hemodialysis. Podiatry is following for bilateral LE swelling and weeping. Continue with local wound care. Wound culture noted to be positive for gram negative rods and gram positive cocci. Will discuss with ID. Miko Ross MD Hospitalist.
[2018-04-07] MEDS: Multivitamin Vitamin B Complex (Nephro-Vite) Tab PO SCH (08:08)
[2018-04-07 09:01] LABS: BASO # 0.01 K/mm3 (0.0-2.0); BASO % 0.1 % (0.0-3.0); EOS # 0.5 (0.0-0.7); GRAN # 6.18 (1.4-6.5); GRAN % 74.3 % (50.0-68.0); HEMOGLOBIN 8.7 g/dL (12.0-16.0); LYMPH # 0.7 (1.2-3.4); LYMPH % 8.8 % (22.0-35.0); MEAN CELL VOLUME 83.9 fl (80.0-105.0); MEAN CORPUSCULAR HEMOGLOBIN 27.4 pg (25.0-35.0); MEAN CORPUSCULAR HGB CONC 32.7 g/dl (31.0-37.0); MEAN PLATELET VOLUME 8.9 fl (7.0-11.0); MONO # 0.9 (0.1-0.6); MONO % 10.8 % (1.0-6.0); RBC 3.17 10^6/uL (3.5-6.1); WHITE BLOOD COUNT 8.3 10^3/uL (4.5-11.0)
[2018-04-07 09:22] LABS: ALB/GLOB RATIO 0.7 (1.1-1.8); ALBUMIN 2.2 g/dL (3.0-4.8)
--- NOTE | 2018-04-07 10:06 | CP.PCM.PN ---
<Taylor Alfaro - Last Filed: 04/07/18 09:59> Subjective - Date & Time of Evaluation Date of Evaluation: 04/07/18 Time of Evaluation: 09:59 - Subjective Subjective: 52F patient with PMHx of CHF, former alcohol abuse, depression, gastric surgery, morbid obesity seen and evaluated for b/l edema with weeping. Denies acute overnight events, denies f/n/v/sob/cp. States she feels like the drainage in the legs are decreasing. Patient states the back of her leg is stinging. Objective - Vital Signs/Intake and Output Vital Signs (last 24 hours): Temp Pulse Resp BP Pulse Ox 97.5 F L 70 20 107/60 94 L 04/07/18 06:00 04/07/18 06:00 04/07/18 06:00 04/07/18 06:00 04/07/18 06:00 Intake and Output: 04/07/18 04/07/18 06:59 18:59 Intake Total 240 Output Total 150 Balance 90 - Medications Medications: Current Medications Albuterol/Ipratropium (Duoneb 3 Mg/0.5 Mg (3 Ml) Ud) 3 ml IH [id number] [facility] Last Admin: 04/07/18 08:31 Dose: Not Given Albuterol/Ipratropium (Duoneb 3 Mg/0.5 Mg (3 Ml) Ud) 3 ml IH Q2H PRN PRN Reason: Shortness of Breath Alprazolam (Xanax) 0.25 mg PO TID PRN; Protocol PRN Reason: anxiety/restlessness Stop: 04/11/18 18:01 Last Admin: 04/06/18 00:14 Dose: 0.25 mg Darbepoetin Fletcher (Aranesp) 100 mcg IVP QWK [facility] Iron Sucrose 100 mg/ Sodium (Chloride) 105 mls @ 210 mls/hr IVPB DAILY [facility] Stop: 04/15/18 10:01 Last Admin: 04/07/18 09:04 Dose: 210 mls/hr Pantoprazole Sodium (Protonix Inj) 40 mg IVP Q12 [facility] Last Admin: 04/07/18 09:49 Dose: Not Given Sevelamer HCl (Renagel) 800 mg PO TID [facility] Last Admin: 04/07/18 09:49 Dose: Not Given Trazodone HCl (Desyrel) 100 mg PO HS [facility] Last Admin: 04/06/18 21:39 Dose: 100 mg Vitamin B Complex/Vit C/Folic Acid (Nephro-Bhupinder) 1 tab PO 0800 [facility] Last Admin: 04/07/18 08:08 Dose: Not Given - Labs Labs: 04/07/18 08:30 04/07/18 08:30 PT 13.2 SECONDS (9.4-12.5) H 04/03/18 15:44 INR 1.15 04/03/18 15:44 APTT 30.7 Seconds (25.1-36.5) 04/03/18 15:44 - Constitutional Appears: Well, Non-toxic, No Acute Distress - Head Exam Head Exam: ATRAUMATIC, NORMOCEPHALIC - Eye Exam Eye Exam: EOMI, Normal appearance, PERRL Pupil Exam: NORMAL ACCOMODATION - Extremities Exam Extremities Exam: Pedal Edema Additional comments: B/L lower extremity exam: Vascular: DP/PT non palpable secondary to edema, CFT < 3 seconds, TG warm to warm, no pedal hair present, +2 pitting edema to bilateral lower extremities beginning at the tibial tuberosity and extending distally to the digits Ortho: Tenderness to palpation of b/l lower extremities, no gross deformities noted, MMT 4/5 Neuro: Gross sensation intact, protective sensation diminished Derm: Weeping superficial ulcerations appreciated circumfrentially to bilateral lower extremities, no purulence, no tunneling, no tracking, no probe to bone. Mild erythema appreciated to bilateral LE, no streaking appreciated. Superficial ulceration noted at the plantar aspect of the left heel measuring approximately 1.5 cm x 2.0 cm x .1 cm, necrotic base with erythema border. - Neurological Exam Neurological Exam: Alert, Awake, Oriented x3 Assessment and Plan - Assessment and Plan (Free Text) Assessment: 52F patient with PMHx of alcohol abuse, depression, gastric surgery, morbid obesity seen and evaluated for b/l edema with significant weeping Plan: Patient seen and evaluated with all questions and concerns addressed Chart, vitals, labs reviewed; afebrile, absent leukocytosis B/L LE US; no evidence of DVT to bilateral lower extremities Wound culture take from L heel; results pending Local wound care: L lower extremity dressed with maxorb, ABD DSD, PRUDENCIO, R lower extremity dressed with Xeroform, DSD, PRUDENCIO Patient informed to keep her legs elevated at all times to help control the swelling Will continue to follow <Bart Montalvo - Last Filed: 04/11/18 11:19> Objective - Vital Signs/Intake and Output Vital Signs (last 24 hours): Temp Pulse Resp BP Pulse Ox 98.4 F 85 21 106/43 L 96 04/11/18 06:00 04/11/18 10:00 04/11/18 06:00 04/11/18 06:00 04/11/18 06:00 Intake and Output: 04/11/18 04/11/18 06:59 18:59 Intake Total 2039 200 Output Total 2 2 Balance 8 -2301 - Medications Medications: Current Medications Albuterol/Ipratropium (Duoneb 3 Mg/0.5 Mg (3 Ml) Ud) 3 ml IH [id number] [facility] Last Admin: 04/11/18 07:54 Dose: Not Given Albuterol/Ipratropium (Duoneb 3 Mg/0.5 Mg (3 Ml) Ud) 3 ml IH Q2H PRN PRN Reason: Shortness of Breath Last Admin: 04/10/18 23:56 Dose: 3 ml Alprazolam (Xanax) 0.25 mg PO TID PRN; Protocol PRN Reason: anxiety/restlessness Stop: 04/11/18 18:01 Last Admin: 04/10/18 23:42 Dose: 0.25 mg Darbepoetin Fletcher (Aranesp) 100 mcg IVP QWK [facility] Last Admin: 04/09/18 09:04 Dose: 100 mcg Ergocalciferol (Drisdol 50,000 Intl Units Cap) 1 cap PO Q7D [facility] Last Admin: 04/08/18 08:12 Dose: 1 cap Iron Sucrose 100 mg/ Sodium (Chloride) 105 mls @ 210 mls/hr IVPB DAILY [facility] Stop: 04/15/18 10:01 Last Admin: 04/10/18 10:13 Dose: 210 mls/hr Midodrine (Proamatine) 10 mg PO MWF [facility] Last Admin: 04/11/18 09:26 Dose: 10 mg Pantoprazole Sodium (Protonix Ec Tab) 40 mg PO 0600,1600 [facility] Last Admin: 04/11/18 05:07 Dose: 40 mg Sevelamer HCl (Renagel) 800 mg PO TID [facility] Last Admin: 04/11/18 09:26 Dose: 800 mg Trazodone HCl (Desyrel) 100 mg PO HS [facility] Last Admin: 04/10/18 21:56 Dose: 100 mg Vitamin B Complex/Vit C/Folic Acid (Nephro-Bhupinder) 1 tab PO 0800 [facility] Last Admin: 04/11/18 08:03 Dose: 1 tab - Labs Labs: 04/10/18 08:00 04/10/18 08:00 PT 13.2 SECONDS (9.4-12.5) H 04/03/18 15:44 INR 1.15 04/03/18 15:44 APTT 30.7 Seconds (25.1-36.5) 04/03/18 15:44 Attending/Attestation - Attestation I have personally seen and examined this patient.: Yes I have fully participated in the care of the patient.: Yes I have reviewed all pertinent clinical information, including history, physical exam and plan: Yes
[2018-04-07] MEDS: Darbepoetin Alfa 100 mcg/ml Inj IVP SCH (12:32)
--- NOTE | 2018-04-07 12:33 | CP.PCM.PN ---
Subjective - Date & Time of Evaluation Date of Evaluation: 04/07/18 Time of Evaluation: 12:32 - Subjective Subjective: Nephrology Consultation Note: Assessment: stable oligoanuric Acute Kidney Injury (N17.9) likely due to ATN, pre-renal state, intrasvasc hypovolemia, impaired renal perfusion, HD 04/05/18: first session anasarca severe symptomatic anemia due to GI bleed with gastric ulcers mild hyperkalemia and HAGMA, hyperphos hx of cirrhosis and etoh intra-ab lymphadenopathy morbid obesity Plan HD today tolerated well, next HD monday Maintain hemodynamics stable. Avoid hypotension. Patient not on ACEI/ARB due to recent FELIPE Monitor Input/Output, daily weights and renal function with basic metabolic panel added phos binders PRBC as needed. started IV iron GI consult pt on PPI work up for FELIPE and anemia as ordered Dose meds/antibiotics for reduced GFR. Avoid fleets enema/magnesium based laxatives. Avoid nephrotoxins/NSAIDs/ iodinated contrast (unless needed emergently) Glycemic control Further work up/management as per primary team Thanks for allowing me to participate in care of your patient. Will follow patient with you. Please call if any Qs. had d/w team Dr Kenji Salmeron Office: [phone] Chief Complaint; fatigue Reason for consult: Acute Kidney Injury HPI: Pt is a 52 F with hx of alcoholism in past, cirrhosis (pt states got better on its own in past) but no regular follow up with PMD presented with complaints of fatigue and tiredness for last few days, found to have severe anemia and FELIPE Denies OTC/herbal meds but NSAIDs as alleve for last few days No recent iodinated contrast exposure. Noted obvious episodes of low BP. reports chronic leg swelling but more now denies smoking or etoh now ROS: c/o swelling in leg. had gastric ulcers on EGD Cardiovascular: No chest pain. Pulmonary: No shortness of breath Gastrointestinal: denies abdominal pain No nausea. No vomiting. Genitourinary: No pain while urinating. Denies blood in urine. All other negative except as mentioned in HPI Physical Examination: General Appearance: Comfortable, in no acute respiratory distress, co-operative . morbid obese Vitals reviewed and noted as below Head; Atraumatic, normocephalic ENT: no ulcers no thrush. Tongue is midline. Oropharynx: no rash or ulcers. EYES: Pupils are equal, round and reactive to light accommodation. Eye muscles and extraocular movement intact. Sclera is anicteric. Neck; supple no lymphadenopathy, no thyromegaly or bruit Lungs: Normal respiratory rate/effort. Breath sounds bilateral reduced at bases Heart: Normal rate. s1s2 normal. No rub or gallop. Extremities: 3+ edema. No varicose veins Neurological: Patient is alert, awake and oriented to person, place and time. No focal deficit. Strength bilateral appropriate and equal Skin: Warm and dry. Normal turgor. spider angioma rash upper chest. Palpitation: Normal elasticity for age Abdomen: Abdomen is soft. Bowel sounds +. There is no abdominal tenderness, no guarding/rigidity no organomegaly. limited due to obesity and abd wall edema Psych: normal insight and normal affect/mood MSK: no joint tenderness or swelling. Digits and nails normal, no deformity : kidney or bladder not palpable. has lee has access as permacath Labs/imaging reviewed. Past medical history, past surgical history, family history, social history, allergy reviewed and noted as below Family hx: no hx of CKD. Rest non-contributory fena 0.3% intra-ab lymphadenopathy Objective - Vital Signs/Intake and Output Vital Signs (last 24 hours): Temp Pulse Resp BP Pulse Ox 97.5 F L 70 20 107/60 94 L 04/07/18 06:00 04/07/18 06:00 04/07/18 06:00 04/07/18 06:00 04/07/18 06:00 Intake and Output: 04/07/18 04/07/18 06:59 18:59 Intake Total 240 Output Total 150 Balance 90 - Medications Medications: Current Medications Albuterol/Ipratropium (Duoneb 3 Mg/0.5 Mg (3 Ml) Ud) 3 ml IH [id number] [facility] Last Admin: 04/07/18 08:31 Dose: Not Given Albuterol/Ipratropium (Duoneb 3 Mg/0.5 Mg (3 Ml) Ud) 3 ml IH Q2H PRN PRN Reason: Shortness of Breath Alprazolam (Xanax) 0.25 mg PO TID PRN; Protocol PRN Reason: anxiety/restlessness Stop: 04/11/18 18:01 Last Admin: 04/06/18 00:14 Dose: 0.25 mg Darbepoetin Fletcher (Aranesp) 100 mcg IVP QWK [facility] Iron Sucrose 100 mg/ Sodium (Chloride) 105 mls @ 210 mls/hr IVPB DAILY [facility] Stop: 04/15/18 10:01 Last Admin: 04/07/18 09:04 Dose: 210 mls/hr Pantoprazole Sodium (Protonix Inj) 40 mg IVP Q12 [facility] Last Admin: 04/07/18 09:49 Dose: Not Given Sevelamer HCl (Renagel) 800 mg PO TID [facility] Last Admin: 04/07/18 09:49 Dose: Not Given Trazodone HCl (Desyrel) 100 mg PO HS [facility] Last Admin: 04/06/18 21:39 Dose: 100 mg Vitamin B Complex/Vit C/Folic Acid (Nephro-Bhupinder) 1 tab PO 0800 [facility] Last Admin: 04/07/18 08:08 Dose: Not Given - Labs Labs: 04/07/18 08:30 04/07/18 08:30 PT 13.2 SECONDS (9.4-12.5) H 04/03/18 15:44 INR 1.15 04/03/18 15:44 APTT 30.7 Seconds (25.1-36.5) 04/03/18 15:44
--- NOTE | 2018-04-07 14:24 | CON ---
DATE: 04/07/2018 HISTORY OF PRESENT ILLNESS: This is a 52-year-old female, who has psychiatrist following up for depression and anxiety symptoms with Dr. Maradiaga notes and met with the patient at bedside. She is alert and well oriented to location and circumstances. She can communicate her needs well. Demonstrates fair reactivity with good range and with mild anxiety. The patient reports that changes symptomatic by Dr. Maradiaga. I have been official specifically in taking trazodone to 100 mg at bedtime and has resulted in very good night of sleep for her. Her mood is also improved and she feels like tolerant levels have improved as well. The patient also reports that Xanax started by Dr. Maradiaga has been beneficial and taken the edge off and has not affected her alertness, which she appreciates. She is coherent. There is no perceptional disturbance. Denies any suicidal thoughts. She denies . There have been no major behavioral issues either. Her insight and judgment are considered to be fair. Labs and vital signs were reviewed. MEDICATIONS: Psychiatric medications include; trazodone 100 mg at bedtime and Xanax 0.25 mg three times a day. IMPRESSION: Rule out mood disorder, general medical condition, rule out major depressive disorder, rule out generalized anxiety disorder. PLAN: We will continue with current management. The patient reports her medications have been beneficial. She is sleeping and reports mood is little bit better, anxiety is better as it is taken off, and she does not want to change her current medication regimen. Psychiatry will continue to follow up. Next followup will be in 2 days on 04/09/2018. Kaya Saxena MD
--- NOTE | 2018-04-07 19:21 | CON ---
DATE OF CONSULTATION: 04/07/2018 The patient was seen earlier today. CHIEF COMPLAINT: Lower extremity erythema for several days. HISTORY OF PRESENT ILLNESS: This is a 52-year-old female with super morbid obesity with a BMI of 52 who also has chronic renal failure. The patient was seen in the emergency room and admitted on 04/03/2018. The patient was seen in the emergency room because of weakness and infectious disease consultation requested because of lower extremity erythema, concern for antibiotic, and the patient has no fevers and no chills. There is mild shortness of breath and no cough, no hemoptysis, no abdominal pain. During her hospitalization, the patient had an upper endoscopy, which revealed multiple gastric ulcers. Had right internal jugular dialysis catheter placed. The patient has not had any fevers, any chills, although during the hospitalization the first day she was hypothermic. She denies any chest pain. There is mild shortness of breath. No cough. PAST MEDICAL HISTORY: Significant for liver disease, alcohol abuse, depression, super morbid obesity with a BMI of 52, long-time ex-smoker. PAST SURGICAL HISTORY: Significant for gastric surgery. According to nursing care, the patient has had a cholecystectomy and has a history of congestive heart failure. MEDICATIONS AT HOME: Takes no medications at home. ALLERGIES: THE PATIENT HAS NO KNOWN ALLERGIES. REVIEW OF SYSTEMS: A 14-point review of systems is performed. PHYSICAL EXAMINATION: GENERAL: The patient is in bed in no acute distress. VITAL SIGNS: Temperature of 97, although as stated earlier on admission it was 92; heart rate of 69, it was as high as 100; respiratory rate of 20, it was as high as 25-33; blood pressure 126/50. HEENT: Unremarkable. NECK: Supple. LUNGS: Decreased breath sounds. HEART: Normal S1, S2. ABDOMEN: Soft, nontender. LOWER EXTREMITIES: Bilateral erythema, no discharge, not warm to touch, and no evidence of an active infection, just chronic changes. LABORATORY EXAMINATION: The patient's white count is 8.3, her hemoglobin was 5.9 on admission, and platelets of 121,000. Coagulation is noted. The chemistries reveal a creatinine of 5.8, it was 7.4. She did not have any laboratory . The patient has never been hospitalized in [place] according to computer today. Examination of the LFTs are normal. Urinalysis is noted to have 1-3 wbc's. Toxicology is reviewed to be negative. Complement C3 is 48, C4 is 14. HIV is negative. Hepatitis A, B, and C is negative. Microbiology reveals a urine culture with a gram-negative golden, 100,000 colonies. Leg culture is gram-negative rods and a gram-positive cocci. Review of orders reveals the patient to be on antibiotics. IMAGING STUDIES: The patient had a chest x-ray on 04/04/2018, which was negative. The patient also had a CAT scan of the abdomen and pelvis, which was reviewed at consult. ASSESSMENT/PLAN: This is a 52-year-old female with super morbid obesity with a BMI of 52 with depression, alcoholic liver disease, admitted with systemic inflammatory response syndrome with bilateral chronic erythema of the lower extremities with chronic edema, found to have gastric ulcers and anemia. No indications for this antibiotic at this time. The patient is not having any urinary symptoms at this time. We will check on the gram-negative golden in the urine. The blood culture is negative thus far. We will make further recommendations, keep the patient off of antibiotics, and we will follow closely with you. Orion Thompson MD
[2018-04-08] MEDS: Albuterol-Ipratrop 3 mg / 0.5 (3 ml) UD IH SCH ×4 (03:09→20:05)
[2018-04-08 06:46] LABS: ALB/GLOB RATIO 0.7 (1.1-1.8); ALBUMIN 2.1 g/dL (3.0-4.8); CALCIUM 7.1 mg/dL (8.4-10.5)
[2018-04-08 06:52] LABS: BASO # 0.03 K/mm3 (0.0-2.0); BASO % 0.4 % (0.0-3.0); EOS # 0.5 (0.0-0.7); EOS % 5.9 % (1.5-5.0); GRAN # 6.02 (1.4-6.5); GRAN % 71.2 % (50.0-68.0); HEMOGLOBIN 8.2 g/dL (12.0-16.0); LYMPH % 12.1 % (22.0-35.0); MEAN CELL VOLUME 85.3 fl (80.0-105.0); MEAN CORPUSCULAR HEMOGLOBIN 27.4 pg (25.0-35.0); MEAN CORPUSCULAR HGB CONC 32.2 g/dl (31.0-37.0); MONO # 0.9 (0.1-0.6); MONO % 10.4 % (1.0-6.0); RBC 2.99 10^6/uL (3.5-6.1); RED CELL DISTRIBUTION WIDTH 19.8 % (11.5-14.5); WHITE BLOOD COUNT 8.5 10^3/uL (4.5-11.0)
[2018-04-08] MEDS: Multivitamin Vitamin B Complex (Nephro-Vite) Tab PO SCH (08:11)
[2018-04-08] MEDS: Ergocalciferol 50,000 Intl Units Cap PO SCH (08:12)
--- NOTE | 2018-04-08 10:14 | CP.PCM.PN ---
<WoodardYsabel L - Last Filed: 04/08/18 14:41> Subjective - Date & Time of Evaluation Date of Evaluation: 04/08/18 Time of Evaluation: 10:14 - Subjective Subjective: Resident Progress Note for Hospitalist Service Patient examined at bedside. No acute events overnight. Patient offers no complaints at this time. Denies fevers, chills, chest pain, shortness of breath, abdominal pain, diarrhea. Objective - Vital Signs/Intake and Output Vital Signs (last 24 hours): Temp Pulse Resp BP Pulse Ox 98.5 F 72 20 95/48 L 95 04/08/18 05:46 04/08/18 05:46 04/08/18 05:46 04/08/18 05:46 04/08/18 05:46 Intake and Output: 04/08/18 04/08/18 06:59 18:59 Intake Total 1160 Output Total 150 Balance 1010 - Medications Medications: Current Medications Albuterol/Ipratropium (Duoneb 3 Mg/0.5 Mg (3 Ml) Ud) 3 ml IH [id number] [facility] Last Admin: 04/08/18 07:41 Dose: 3 ml Albuterol/Ipratropium (Duoneb 3 Mg/0.5 Mg (3 Ml) Ud) 3 ml IH Q2H PRN PRN Reason: Shortness of Breath Alprazolam (Xanax) 0.25 mg PO TID PRN; Protocol PRN Reason: anxiety/restlessness Stop: 04/11/18 18:01 Last Admin: 04/07/18 22:21 Dose: 0.25 mg Darbepoetin Fletcher (Aranesp) 100 mcg IVP QWK [facility] Last Admin: 04/07/18 12:32 Dose: 100 mcg Ergocalciferol (Drisdol 50,000 Intl Units Cap) 1 cap PO Q7D [facility] Last Admin: 04/08/18 08:12 Dose: 1 cap Iron Sucrose 100 mg/ Sodium (Chloride) 105 mls @ 210 mls/hr IVPB DAILY [facility] Stop: 04/15/18 10:01 Last Admin: 04/08/18 09:11 Dose: 210 mls/hr Pantoprazole Sodium (Protonix Inj) 40 mg IVP Q12 [facility] Last Admin: 04/08/18 09:10 Dose: 40 mg Sevelamer HCl (Renagel) 800 mg PO TID [facility] Last Admin: 04/08/18 09:10 Dose: 800 mg Trazodone HCl (Desyrel) 100 mg PO HS [facility] Last Admin: 04/07/18 22:22 Dose: 100 mg Vitamin B Complex/Vit C/Folic Acid (Nephro-Bhupinder) 1 tab PO 0800 [facility] Last Admin: 04/08/18 08:11 Dose: 1 tab - Labs Labs: 04/08/18 06:00 04/08/18 06:00 PT 13.2 SECONDS (9.4-12.5) H 04/03/18 15:44 INR 1.15 04/03/18 15:44 APTT 30.7 Seconds (25.1-36.5) 04/03/18 15:44 - Additional Findings Additional findings: - Constitutional Appears: No Acute Distress - Head Exam Head Exam: NORMAL INSPECTION, ATRAUMATIC - Eye Exam Eye Exam: EOMI - ENT Exam ENT Exam: Mucous Membranes Moist, Normal Exam - Neck Exam Neck exam: Positive for: Normal Inspection - Respiratory Exam Respiratory Exam: Clear to Auscultation Bilateral. absent: Rales, Rhonchi, Wheezes, respiratory distress - Cardiovascular Exam Cardiovascular Exam: Regular rhythm, +S1, +S2. absent: Systolic Murmur - GI/Abdominal Exam GI & Abdominal Exam: Soft. Bowel sounds heard in all 4 quadrants absent: Distended, Guarding, Rebound, Tenderness - Extremities Exam Extremities exam: Positive for: pedal edema Additional comments: 3+ edema on bilateral lower extremities, dressing applied lee in place - Neurological Exam Neurological exam: Alert, CN II-XII Intact, Oriented x3 - Skin Skin Exam: Dry, Intact and Pallor Assessment and Plan - Assessment and Plan (Free Text) Assessment: Patient is a 52 yo F with past medical history liver failure, morbid obesity, and EtOH abuse presents to [facility] [place] [facility] for worsening weakness and admitted for management of anemia and FELIPE with metabolic acidosis. Plan: Microcytic anemia -s/p 11 units pRBCs, 2 FFPs -Venofer 100 mg IV daily -endoscopy showed 3 non bleeding gastric ulcers, largest one 8mm -iron studies shows likely iron deficiency -Head CT unremarkable -CTAP shows adenopathy of the hepatic gastric ligament -Extremity US shows no DVT -BCx x2 neg to date, UCx gram neg golden -GI on consult, Dr. Melo Acute renal failure -Cr improving -HD today removed 2.5L, plan for next HD tomorrow -Renal US is unremarkable -Renagel 800 mg PO TID -Strict I's and O's -consider lasix of CXR shows worsening congestion -Nephrology on consult, Dr. Salmeron -UCx grew E.Coli B/L leg fluid weeping -podiatry on consult -WCx WCx grew Enterobacter Cloacae, E. faecalis -local wound care Metabolic acidosis -initial pH 7.26, HCO3 11, pCO2 22 -Repeat ABG shows anion gap metabolic acidosis with negative delta delta gap significant for superimposing hyperchloremia Elevated BNP -BNP 60846 on admission -Echo showed EF of 68%, mild TR/MR, mild pulm HTN, borderline LVH Depression -Psych on consult, Dr. Ramos -continue trazodone PPX/Diet -protonix -heparin and SCDs currently contraindicated -renal diet Patient seen and case discussed with Dr. Cody Woodard PGY-1 <Miko Ross - Last Filed: 04/08/18 15:23> Objective - Vital Signs/Intake and Output Vital Signs (last 24 hours): Temp Pulse Resp BP Pulse Ox 97.5 F L 73 18 95/56 L 95 04/08/18 12:00 04/08/18 12:00 04/08/18 12:00 04/08/18 12:00 04/08/18 05:46 Intake and Output: 04/08/18 04/08/18 06:59 18:59 Intake Total 1160 Output Total 150 Balance 1010 - Medications Medications: Current Medications Albuterol/Ipratropium (Duoneb 3 Mg/0.5 Mg (3 Ml) Ud) 3 ml IH [id number] [facility] Last Admin: 04/08/18 13:43 Dose: 3 ml Albuterol/Ipratropium (Duoneb 3 Mg/0.5 Mg (3 Ml) Ud) 3 ml IH Q2H PRN PRN Reason: Shortness of Breath Alprazolam (Xanax) 0.25 mg PO TID PRN; Protocol PRN Reason: anxiety/restlessness Stop: 04/11/18 18:01 Last Admin: 04/07/18 22:21 Dose: 0.25 mg Darbepoetin Fletcher (Aranesp) 100 mcg IVP QWK [facility] Last Admin: 04/07/18 12:32 Dose: 100 mcg Ergocalciferol (Drisdol 50,000 Intl Units Cap) 1 cap PO Q7D [facility] Last Admin: 04/08/18 08:12 Dose: 1 cap Iron Sucrose 100 mg/ Sodium (Chloride) 105 mls @ 210 mls/hr IVPB DAILY [facility] Stop: 04/15/18 10:01 Last Admin: 04/08/18 09:11 Dose: 210 mls/hr Pantoprazole Sodium (Protonix Inj) 40 mg IVP Q12 [facility] Last Admin: 04/08/18 09:10 Dose: 40 mg Sevelamer HCl (Renagel) 800 mg PO TID [facility] Last Admin: 04/08/18 14:19 Dose: 800 mg Trazodone HCl (Desyrel) 100 mg PO HS [facility] Last Admin: 04/07/18 22:22 Dose: 100 mg Vitamin B Complex/Vit C/Folic Acid (Nephro-Bhupinder) 1 tab PO 0800 [facility] Last Admin: 04/08/18 08:11 Dose: 1 tab - Labs Labs: 04/08/18 06:00 04/08/18 06:00 PT 13.2 SECONDS (9.4-12.5) H 04/03/18 15:44 INR 1.15 04/03/18 15:44 APTT 30.7 Seconds (25.1-36.5) 04/03/18 15:44 Attending/Attestation - Attestation I have personally seen and examined this patient.: Yes I have fully participated in the care of the patient.: Yes I have reviewed all pertinent clinical information, including history, physical exam and plan: Yes Notes (Text): 04/08/18 15:20 52 year old female with past medical history of liver failure, alcohol abuse, depression and gastric bypass surgery who presented with complaint of generalized weakness, fatigue and dark stools. She was found to have acute microcytic anemia and severe metabolic acidosis with acute renal failure. She is s/p multiple PRBC transfusions. She is s/p EGD which showed multiple gastric ulcers. She is on protonix and s/p octreotide. Continue to monitory CBC closely. H/H has been stable. Patient is started on iv iron. Nephrology is following for FLEIPE and metabolic acidosis. Patient has been started on hemodialysis. Podiatry is following for bilateral LE swelling and weeping. Continue with local wound care. Wound culture noted to be positive for Enterobacter cloacae abd Enterococcus faecalis. Urine culture is growing E coli. However patient is asymptomatic. Monitor off antibiotics as per ID. PT evaluation is requested for d/c planning. Miko Ross MD Hospitalist.
--- NOTE | 2018-04-08 11:24 | CP.PCM.PN ---
Subjective - Date & Time of Evaluation Date of Evaluation: 04/08/18 Time of Evaluation: 11:23 - Subjective Subjective: Nephrology Consultation Note: Assessment: stable oligoanuric Acute Kidney Injury (N17.9) likely due to ATN, pre-renal state, intrasvasc hypovolemia, impaired renal perfusion, HD 04/05/18: first session anasarca severe symptomatic anemia due to GI bleed with gastric ulcers mild hyperkalemia and HAGMA, hyperphos hx of cirrhosis and etoh intra-ab lymphadenopathy morbid obesity Plan HD tolerated well so far, next HD monday Maintain hemodynamics stable. Avoid hypotension. Patient not on ACEI/ARB due to recent FELIPE Monitor Input/Output, daily weights and renal function with basic metabolic panel added phos binders PRBC as needed. started IV iron GI consult pt on PPI work up for FELIPE and anemia as ordered started weely vit d Dose meds/antibiotics for reduced GFR. Avoid fleets enema/magnesium based laxatives. Avoid nephrotoxins/NSAIDs/ iodinated contrast (unless needed emergently) Glycemic control Further work up/management as per primary team Thanks for allowing me to participate in care of your patient. Will follow patient with you. Please call if any Qs. had d/w team Dr Kenji Salmeron Office: [phone] Chief Complaint; fatigue Reason for consult: Acute Kidney Injury HPI: Pt is a 52 F with hx of alcoholism in past, cirrhosis (pt states got better on its own in past) but no regular follow up with PMD presented with complaints of fatigue and tiredness for last few days, found to have severe anemia and FELIPE Denies OTC/herbal meds but NSAIDs as alleve for last few days No recent iodinated contrast exposure. Noted obvious episodes of low BP. reports chronic leg swelling but more now denies smoking or etoh now ROS: c/o swelling in leg. had gastric ulcers on EGD Cardiovascular: No chest pain. Pulmonary: No shortness of breath Gastrointestinal: denies abdominal pain No nausea. No vomiting. Genitourinary: No pain while urinating. Denies blood in urine. All other negative except as mentioned in HPI Physical Examination: General Appearance: Comfortable, in no acute respiratory distress, co-operative . morbid obese Vitals reviewed and noted as below Head; Atraumatic, normocephalic ENT: no ulcers no thrush. Tongue is midline. Oropharynx: no rash or ulcers. EYES: Pupils are equal, round and reactive to light accommodation. Eye muscles and extraocular movement intact. Sclera is anicteric. Neck; supple no lymphadenopathy, no thyromegaly or bruit Lungs: Normal respiratory rate/effort. Breath sounds bilateral reduced at bases Heart: Normal rate. s1s2 normal. No rub or gallop. Extremities: 3+ edema. No varicose veins Neurological: Patient is alert, awake and oriented to person, place and time. No focal deficit. Strength bilateral appropriate and equal Skin: Warm and dry. Normal turgor. spider angioma rash upper chest. Palpitation: Normal elasticity for age Abdomen: Abdomen is soft. Bowel sounds +. There is no abdominal tenderness, no guarding/rigidity no organomegaly. limited due to obesity and abd wall edema Psych: normal insight and normal affect/mood MSK: no joint tenderness or swelling. Digits and nails normal, no deformity : kidney or bladder not palpable. has lee has access as permacath Labs/imaging reviewed. Past medical history, past surgical history, family history, social history, allergy reviewed and noted as below Family hx: no hx of CKD. Rest non-contributory fena 0.3% intra-ab lymphadenopathy Objective - Vital Signs/Intake and Output Vital Signs (last 24 hours): Temp Pulse Resp BP Pulse Ox 98.5 F 72 20 95/48 L 95 04/08/18 05:46 04/08/18 05:46 04/08/18 05:46 04/08/18 05:46 04/08/18 05:46 Intake and Output: 04/08/18 04/08/18 06:59 18:59 Intake Total 1160 Output Total 150 Balance 1010 - Medications Medications: Current Medications Albuterol/Ipratropium (Duoneb 3 Mg/0.5 Mg (3 Ml) Ud) 3 ml IH [id number] [facility] Last Admin: 04/08/18 07:41 Dose: 3 ml Albuterol/Ipratropium (Duoneb 3 Mg/0.5 Mg (3 Ml) Ud) 3 ml IH Q2H PRN PRN Reason: Shortness of Breath Alprazolam (Xanax) 0.25 mg PO TID PRN; Protocol PRN Reason: anxiety/restlessness Stop: 04/11/18 18:01 Last Admin: 04/07/18 22:21 Dose: 0.25 mg Darbepoetin Fletcher (Aranesp) 100 mcg IVP QWK [facility] Last Admin: 04/07/18 12:32 Dose: 100 mcg Ergocalciferol (Drisdol 50,000 Intl Units Cap) 1 cap PO Q7D [facility] Last Admin: 04/08/18 08:12 Dose: 1 cap Iron Sucrose 100 mg/ Sodium (Chloride) 105 mls @ 210 mls/hr IVPB DAILY [facility] Stop: 04/15/18 10:01 Last Admin: 04/08/18 09:11 Dose: 210 mls/hr Pantoprazole Sodium (Protonix Inj) 40 mg IVP Q12 [facility] Last Admin: 04/08/18 09:10 Dose: 40 mg Sevelamer HCl (Renagel) 800 mg PO TID [facility] Last Admin: 04/08/18 09:10 Dose: 800 mg Trazodone HCl (Desyrel) 100 mg PO HS [facility] Last Admin: 04/07/18 22:22 Dose: 100 mg Vitamin B Complex/Vit C/Folic Acid (Nephro-Bhupinder) 1 tab PO 0800 [facility] Last Admin: 04/08/18 08:11 Dose: 1 tab - Labs Labs: 04/08/18 06:00 04/08/18 06:00 PT 13.2 SECONDS (9.4-12.5) H 04/03/18 15:44 INR 1.15 04/03/18 15:44 APTT 30.7 Seconds (25.1-36.5) 04/03/18 15:44
--- NOTE | 2018-04-08 12:40 | PN ---
DATE: 04/08/2018 SUBJECTIVE: The patient is in bed in no acute distress. The patient is in room 265, bed 1. The patient had no fevers, no chills and uneventful night. PHYSICAL EXAMINATION: VITAL SIGNS: Temperature is 98, blood pressure is 100/40, respiratory rate of 20, heart rate of 60. HEENT: Unremarkable. NECK: Supple. LUNGS: Have decreased breath sounds. HEART: Normal S1, S2. ABDOMEN: Soft. LABORATORY EXAMINATION: Reveals a white count of 8.5, hemoglobin of 8, platelets of 66 and the chemistries reveals a BUN of 62, creatinine of 5.1. HIV is negative. Hepatitis C is negative. Hepatitis B is negative and microbiology reveals Gram-negative golden and Gram-positive cocci from the left leg and Gram-negative golden in the urine. Review of orders reveals the patient to be off of antibiotics. ASSESSMENT AND PLAN: This is a 52-year-old female with super morbid obesity, BMI of 52 and chronic renal failure and rather renal disease and who is admitted with systemic inflammatory response syndrome, bilateral chronic erythema and chronic lower extremity edema and found to have gastric ulcers and anemia and lower extremities are not infected just chronic changes. The patient does have a Gram-negative golden in the urine. However, as the patient is asymptomatic. No urinary symptoms and currently off of antibiotics, afebrile and will follow with you. Orion Thompson MD
--- NOTE | 2018-04-08 12:43 | CP.PCM.PN ---
<Taylor Alfaro - Last Filed: 04/08/18 12:40> Subjective - Date & Time of Evaluation Date of Evaluation: 04/08/18 Time of Evaluation: 12:40 - Subjective Subjective: 52F patient with PMHx of CHF, former alcohol abuse, depression, gastric surgery, morbid obesity seen and evaluated for b/l edema with weeping. Denies acute overnight events, denies f/n/v/sob/cp. States she feels like the drainage in the legs is decreasing. Objective - Vital Signs/Intake and Output Vital Signs (last 24 hours): Temp Pulse Resp BP Pulse Ox 97.5 F L 73 18 95/56 L 95 04/08/18 12:00 04/08/18 12:00 04/08/18 12:00 04/08/18 12:00 04/08/18 05:46 Intake and Output: 04/08/18 04/08/18 06:59 18:59 Intake Total 1160 Output Total 150 Balance 1010 - Medications Medications: Current Medications Albuterol/Ipratropium (Duoneb 3 Mg/0.5 Mg (3 Ml) Ud) 3 ml IH [id number] [facility] Last Admin: 04/08/18 07:41 Dose: 3 ml Albuterol/Ipratropium (Duoneb 3 Mg/0.5 Mg (3 Ml) Ud) 3 ml IH Q2H PRN PRN Reason: Shortness of Breath Alprazolam (Xanax) 0.25 mg PO TID PRN; Protocol PRN Reason: anxiety/restlessness Stop: 04/11/18 18:01 Last Admin: 04/07/18 22:21 Dose: 0.25 mg Darbepoetin Fletcher (Aranesp) 100 mcg IVP QWK [facility] Last Admin: 04/07/18 12:32 Dose: 100 mcg Ergocalciferol (Drisdol 50,000 Intl Units Cap) 1 cap PO Q7D [facility] Last Admin: 04/08/18 08:12 Dose: 1 cap Iron Sucrose 100 mg/ Sodium (Chloride) 105 mls @ 210 mls/hr IVPB DAILY [facility] Stop: 04/15/18 10:01 Last Admin: 04/08/18 09:11 Dose: 210 mls/hr Pantoprazole Sodium (Protonix Inj) 40 mg IVP Q12 [facility] Last Admin: 04/08/18 09:10 Dose: 40 mg Sevelamer HCl (Renagel) 800 mg PO TID [facility] Last Admin: 04/08/18 09:10 Dose: 800 mg Trazodone HCl (Desyrel) 100 mg PO HS [facility] Last Admin: 04/07/18 22:22 Dose: 100 mg Vitamin B Complex/Vit C/Folic Acid (Nephro-Bhupinder) 1 tab PO 0800 [facility] Last Admin: 04/08/18 08:11 Dose: 1 tab - Labs Labs: 04/08/18 06:00 04/08/18 06:00 PT 13.2 SECONDS (9.4-12.5) H 04/03/18 15:44 INR 1.15 04/03/18 15:44 APTT 30.7 Seconds (25.1-36.5) 04/03/18 15:44 - Constitutional Appears: Well, Non-toxic, No Acute Distress - Head Exam Head Exam: ATRAUMATIC, NORMOCEPHALIC - Eye Exam Eye Exam: EOMI, Normal appearance Pupil Exam: NORMAL ACCOMODATION - ENT Exam ENT Exam: Mucous Membranes Moist - Cardiovascular Exam Cardiovascular Exam: REGULAR RHYTHM - Extremities Exam Additional comments: Dressing left clean, dry and intact from previous note: B/L lower extremity exam: Vascular: DP/PT non palpable secondary to edema, CFT < 3 seconds, TG warm to warm, no pedal hair present, +2 pitting edema to bilateral lower extremities beginning at the tibial tuberosity and extending distally to the digits Ortho: Tenderness to palpation of b/l lower extremities, no gross deformities noted, MMT 4/5 Neuro: Gross sensation intact, protective sensation diminished Derm: Weeping superficial ulcerations appreciated circumfrentially to bilateral lower extremities, no purulence, no tunneling, no tracking, no probe to bone. Mild erythema appreciated to bilateral LE, no streaking appreciated- healing of the superficial ulcerations noted Superficial ulceration noted at the plantar aspect of the left heel measuring a pproximately 1.5 cm x 2.0 cm x .1 cm, with granular base Assessment and Plan - Assessment and Plan (Free Text) Assessment: 52F patient with PMHx of alcohol abuse, depression, gastric surgery, morbid obesity seen and evaluated for b/l edema with significant weeping Plan: Patient seen and evaluated with all questions and concerns addressed Chart, vitals, labs reviewed; afebrile, absent leukocytosis B/L LE US; no evidence of DVT to bilateral lower extremities Wound culture take from L heel; e cloacae, e faecalis Local wound care: L lower extremity dressed with maxorb, ABD DSD, PRUDENCIO, R lower extremity dressed with Xeroform, DSD, PRUDENCIO Patient informed to keep her legs elevated at all times to help control the swelling Will continue to follow Stable for discharge from podiatry point of view. <Darline Rice - Last Filed: 04/09/18 14:27> Objective - Vital Signs/Intake and Output Vital Signs (last 24 hours): Temp Pulse Resp BP Pulse Ox 98.5 F 58 L 19 93/44 L 96 04/09/18 12:00 04/09/18 12:00 04/09/18 12:00 04/09/18 12:00 04/09/18 06:00 Intake and Output: 04/09/18 04/09/18 06:59 18:59 Intake Total 240 Balance 240 - Medications Medications: Current Medications Albuterol/Ipratropium (Duoneb 3 Mg/0.5 Mg (3 Ml) Ud) 3 ml IH [id number] [facility] Last Admin: 04/09/18 13:08 Dose: Not Given Albuterol/Ipratropium (Duoneb 3 Mg/0.5 Mg (3 Ml) Ud) 3 ml IH Q2H PRN PRN Reason: Shortness of Breath Alprazolam (Xanax) 0.25 mg PO TID PRN; Protocol PRN Reason: anxiety/restlessness Stop: 04/11/18 18:01 Last Admin: 04/08/18 21:12 Dose: 0.25 mg Darbepoetin Fletcher (Aranesp) 100 mcg IVP QWK [facility] Last Admin: 04/09/18 09:04 Dose: 100 mcg Ergocalciferol (Drisdol 50,000 Intl Units Cap) 1 cap PO Q7D [facility] Last Admin: 04/08/18 08:12 Dose: 1 cap Iron Sucrose 100 mg/ Sodium (Chloride) 105 mls @ 210 mls/hr IVPB DAILY [facility] Stop: 04/15/18 10:01 Last Admin: 04/08/18 09:11 Dose: 210 mls/hr Pantoprazole Sodium (Protonix Inj) 40 mg IVP Q12 [facility] Last Admin: 04/08/18 21:13 Dose: 40 mg Sevelamer HCl (Renagel) 800 mg PO TID [facility] Last Admin: 04/09/18 13:38 Dose: Not Given Trazodone HCl (Desyrel) 100 mg PO HS [facility] Last Admin: 04/08/18 21:13 Dose: 100 mg Vitamin B Complex/Vit C/Folic Acid (Nephro-Bhupinder) 1 tab PO 0800 [facility] Last Admin: 04/08/18 08:11 Dose: 1 tab - Labs Labs: 04/09/18 08:30 04/09/18 08:30 PT 13.2 SECONDS (9.4-12.5) H 04/03/18 15:44 INR 1.15 04/03/18 15:44 APTT 30.7 Seconds (25.1-36.5) 04/03/18 15:44 Attending/Attestation - Attestation I have personally seen and examined this patient.: No I have fully participated in the care of the patient.: No I have reviewed all pertinent clinical information, including history, physical exam and plan: No
[2018-04-09] MEDS: Albuterol-Ipratrop 3 mg / 0.5 (3 ml) UD IH SCH ×4 (01:11→20:13)
[2018-04-09 08:56] LABS: BASO # 0.02 K/mm3 (0.0-2.0); BASO % 0.2 % (0.0-3.0); EOS # 0.5 (0.0-0.7); EOS % 6.1 % (1.5-5.0); GRAN # 6.07 (1.4-6.5); HEMOGLOBIN 8.4 g/dL (12.0-16.0); LYMPH # 0.8 (1.2-3.4); LYMPH % 9.3 % (22.0-35.0); MEAN CELL VOLUME 86.1 fl (80.0-105.0); MEAN CORPUSCULAR HEMOGLOBIN 27.7 pg (25.0-35.0); MEAN CORPUSCULAR HGB CONC 32.2 g/dl (31.0-37.0); MEAN PLATELET VOLUME 8.9 fl (7.0-11.0); MONO # 0.8 (0.1-0.6); MONO % 9.4 % (1.0-6.0); RBC 3.03 10^6/uL (3.5-6.1); RED CELL DISTRIBUTION WIDTH 20.3 % (11.5-14.5); WHITE BLOOD COUNT 8.1 10^3/uL (4.5-11.0)
[2018-04-09] MEDS: Darbepoetin Alfa 100 mcg/ml Inj IVP SCH (09:04)
[2018-04-09 09:09] LABS: ALB/GLOB RATIO 0.7 (1.1-1.8); ALBUMIN 2.1 g/dL (3.0-4.8); CALCIUM 7.6 mg/dL (8.4-10.5)
--- NOTE | 2018-04-09 10:48 | CP.PCM.PN ---
<AlfaroTaylor - Last Filed: 04/09/18 15:51> Subjective - Date & Time of Evaluation Date of Evaluation: 04/09/18 Time of Evaluation: 10:44 - Subjective Subjective: 52F patient with PMHx of CHF, former alcohol abuse, depression, gastric surgery, morbid obesity seen and evaluated for b/l edema with weeping. Denies acute overnight events, denies f/n/v/sob/cp. States she feels like the drainage in the legs is decreasing. Patient admits to minimal pain in her leg. Objective - Vital Signs/Intake and Output Vital Signs (last 24 hours): Temp Pulse Resp BP Pulse Ox 98.1 F 67 20 93/40 L 96 04/09/18 06:00 04/09/18 06:00 04/09/18 06:00 04/09/18 06:00 04/09/18 06:00 Intake and Output: 04/09/18 04/09/18 06:59 18:59 Intake Total 240 Balance 240 - Medications Medications: Current Medications Albuterol/Ipratropium (Duoneb 3 Mg/0.5 Mg (3 Ml) Ud) 3 ml IH [id number] [facility] Last Admin: 04/09/18 08:12 Dose: Not Given Albuterol/Ipratropium (Duoneb 3 Mg/0.5 Mg (3 Ml) Ud) 3 ml IH Q2H PRN PRN Reason: Shortness of Breath Alprazolam (Xanax) 0.25 mg PO TID PRN; Protocol PRN Reason: anxiety/restlessness Stop: 04/11/18 18:01 Last Admin: 04/08/18 21:12 Dose: 0.25 mg Darbepoetin Fletcher (Aranesp) 100 mcg IVP QWK [facility] Last Admin: 04/09/18 09:04 Dose: 100 mcg Ergocalciferol (Drisdol 50,000 Intl Units Cap) 1 cap PO Q7D [facility] Last Admin: 04/08/18 08:12 Dose: 1 cap Iron Sucrose 100 mg/ Sodium (Chloride) 105 mls @ 210 mls/hr IVPB DAILY [facility] Stop: 04/15/18 10:01 Last Admin: 04/08/18 09:11 Dose: 210 mls/hr Pantoprazole Sodium (Protonix Inj) 40 mg IVP Q12 [facility] Last Admin: 04/08/18 21:13 Dose: 40 mg Sevelamer HCl (Renagel) 800 mg PO TID [facility] Last Admin: 04/08/18 17:26 Dose: 800 mg Trazodone HCl (Desyrel) 100 mg PO HS [facility] Last Admin: 04/08/18 21:13 Dose: 100 mg Vitamin B Complex/Vit C/Folic Acid (Nephro-Bhupinder) 1 tab PO 0800 [facility] Last Admin: 04/08/18 08:11 Dose: 1 tab - Labs Labs: 04/09/18 08:30 04/09/18 08:30 PT 13.2 SECONDS (9.4-12.5) H 04/03/18 15:44 INR 1.15 04/03/18 15:44 APTT 30.7 Seconds (25.1-36.5) 04/03/18 15:44 - Constitutional Appears: Well, Non-toxic, No Acute Distress - Head Exam Head Exam: ATRAUMATIC, NORMOCEPHALIC - Eye Exam Eye Exam: Normal appearance Pupil Exam: NORMAL ACCOMODATION - ENT Exam ENT Exam: Mucous Membranes Moist - Respiratory Exam Respiratory Exam: Clear to Ausculation Bilateral, NORMAL BREATHING PATTERN - Cardiovascular Exam Cardiovascular Exam: REGULAR RHYTHM - Extremities Exam Additional comments: B/L lower extremity exam: Vascular: DP/PT non palpable secondary to edema, CFT < 3 seconds, TG warm to warm, no pedal hair present, +2 pitting edema to bilateral lower extremities beginning at the tibial tuberosity and extending distally to the digits Ortho: Tenderness to palpation of b/l lower extremities, no gross deformities noted, MMT 4/5 Neuro: Gross sensation intact, protective sensation diminished Derm: Weeping superficial ulcerations appreciated circumferentially to bilateral lower extremities, no purulence, no tunneling, no tracking, no probe to bone. Mild erythema appreciated to bilateral LE, no streaking appreciated- healing of the superficial ulcerations noted Superficial ulceration noted at the plantar aspect of the left heel measuring approximately 1.5 cm x 2.0 cm x .1 cm, with granular base Assessment and Plan - Assessment and Plan (Free Text) Assessment: 52F patient with PMHx of alcohol abuse, depression, gastric surgery, morbid obesity seen and evaluated for b/l edema with significant weeping Plan: Patient seen and evaluated with all questions and concerns addressed Chart, vitals, labs reviewed; afebrile, absent leukocytosis B/L LE US; no evidence of DVT to bilateral lower extremities B/l LE arterial US ordered Unna boots ordered;if arterial doppler is WNL unna boots juan carlos be applied Wound culture take from L heel; e cloacae, e faecalis - heavy growth Local wound care: L lower extremity dressed with maxorb, ABD DSD, PRUDENCIO, R lower extremity dressed with Xeroform, DSD, PRUDENCIO Patient informed to keep her legs elevated at all times to help control the swelling ID on board; appreciate recs Will continue to follow the patient Stable for discharge from podiatry point of view <Darline Rice - Last Filed: 04/15/18 18:09> Objective - Vital Signs/Intake and Output Vital Signs (last 24 hours): Temp Pulse Resp BP Pulse Ox 98.6 F 80 20 107/54 L 95 04/15/18 14:00 04/15/18 14:00 04/15/18 14:00 04/15/18 14:00 04/15/18 14:00 Intake and Output: 04/15/18 04/15/18 06:59 18:59 Intake Total 180 Balance 180 - Medications Medications: Current Medications Acetaminophen (Tylenol 325mg Tab) 650 mg PO Q6 PRN PRN Reason: Fever >100.4 F Last Admin: 04/13/18 05:56 Dose: 650 mg Albuterol/Ipratropium (Duoneb 3 Mg/0.5 Mg (3 Ml) Ud) 3 ml IH [id number] [facility] Last Admin: 04/15/18 13:27 Dose: 3 ml Albuterol/Ipratropium (Duoneb 3 Mg/0.5 Mg (3 Ml) Ud) 3 ml IH Q2H PRN PRN Reason: Shortness of Breath Last Admin: 04/10/18 23:56 Dose: 3 ml Alprazolam (Xanax) 0.25 mg PO TID PRN; Protocol PRN Reason: Anxiety Last Admin: 04/12/18 22:31 Dose: 0.25 mg Darbepoetin Fletcher (Aranesp) 150 mcg IVP QWK [facility] Last Admin: 04/14/18 11:54 Dose: 150 mcg Ergocalciferol (Drisdol 50,000 Intl Units Cap) 1 cap PO Q7D [facility] Last Admin: 04/15/18 14:05 Dose: 1 cap Ferrous Sulfate (Feosol) 324 mg PO WM [facility] Heparin Sodium (Porcine) (Heparin) 5,000 units SC Q8 [facility]; Protocol Last Admin: 04/15/18 14:05 Dose: 5,000 units Cefepime HCl (Maxipime 2gm) 2 gm in 100 mls @ 100 mls/hr IVPB DAILY [facility]; Protocol Stop: 04/18/18 09:01 Last Admin: 04/15/18 10:04 Dose: 100 mls/hr Midodrine (Proamatine) 10 mg PO MWF [facility] Last Admin: 04/13/18 10:00 Dose: Not Given Nystatin (Nystop Topical Powder) 0 gm TOP BID [facility] Last Admin: 04/15/18 10:02 Dose: 1 appl Oseltamivir Phosphate (Tamiflu Cap) 30 mg PO DAILY [facility]; Protocol Last Admin: 04/15/18 10:01 Dose: 30 mg Pantoprazole Sodium (Protonix Ec Tab) 40 mg PO 0600,1600 [facility] Last Admin: 04/15/18 08:43 Dose: 40 mg Sevelamer HCl (Renagel) 800 mg PO TID [facility] Last Admin: 04/15/18 14:05 Dose: 800 mg Spironolactone (Aldactone) 50 mg PO DAILY [facility] Last Admin: 04/15/18 10:01 Dose: 50 mg Trazodone HCl (Desyrel) 100 mg PO HS [facility] Last Admin: 04/14/18 22:57 Dose: 100 mg Vitamin B Complex/Vit C/Folic Acid (Nephro-Bhupinder) 1 tab PO 0800 [facility] Last Admin: 04/15/18 10:01 Dose: 1 tab - Labs Labs: 04/14/18 06:00 04/14/18 06:00 PT 13.2 SECONDS (9.4-12.5) H 04/03/18 15:44 INR 1.15 04/03/18 15:44 APTT 30.7 Seconds (25.1-36.5) 04/03/18 15:44 Attending/Attestation - Attestation I have personally seen and examined this patient.: Yes I have fully participated in the care of the patient.: Yes I have reviewed all pertinent clinical information, including history, physical exam and plan: Yes
[2018-04-09 11:19] LABS: ALBUMIN (PEP) 2.1 g/dL (3.8-4.8); ALPHA-1-GLOBULIN (PEP) 0.4 g/dL (0.2-0.3)
--- NOTE | 2018-04-09 12:05 | PN ---
DATE: 04/09/2018 SUBJECTIVE: The patient is in bed in no acute distress, nontoxic. PHYSICAL EXAMINATION: VITAL SIGNS: Temperature is 98, blood pressure is 93/40, respiratory rate of 20. HEENT: Unremarkable. NECK: Supple. LUNGS: Have decreased breath sounds. HEART: Normal S1, S2. ABDOMEN: Soft, nontender. LABORATORY EXAMINATION: Reveals a white count of 8.1, hemoglobin of 8, platelets of 81. Chemistries is reviewed. BUN of 69, creatinine of 5.5 and urinalysis is noted and toxicology is noted. Serology is reviewed. Microbiology is noted and review of orders reveals the patient to have be off of antibiotics. ASSESSMENT/PLAN: A 52-year-old female with super morbid obesity, BMI of 52, chronic renal failure, renal disease, admitted with systemic inflammatory response is syndrome, bilateral chronic erythema and lower extremity edema, found to have gastric ulcers and anemia, chronic changes and with Escherichia coli in the urine, pansensitive except resistance to Bactrim and Enterobacter and Enterococcus in the leg, there is chronic changes, no evidence of infection, currently off of antibiotics, afebrile. We will follow with you. The patient is at risk for developing nosocomial infections. Orion Thompson MD
--- NOTE | 2018-04-09 13:53 | CP.PCM.PN ---
Subjective - Date & Time of Evaluation Date of Evaluation: 04/09/18 Time of Evaluation: 13:48 - Subjective Subjective: Nephrology Consultation Note: Assessment: stable oligoanuric Acute Kidney Injury (N17.9) likely due to ATN, pre-renal state, intrasvasc hypovolemia, impaired renal perfusion, HD 04/05/18: first session anasarca severe symptomatic anemia due to GI bleed with gastric ulcers mild hyperkalemia and HAGMA, hyperphos hx of cirrhosis and etoh intra-ab lymphadenopathy morbid obesity Plan HD tolerated well so far, on MWF schedule Maintain hemodynamics stable. Avoid hypotension. Patient not on ACEI/ARB due to recent FELIPE Monitor Input/Output, daily weights and renal function with basic metabolic panel added phos binders PRBC as needed. started IV iron. on weekly aranesp GI consult pt on PPI work up for FELIPE and anemia as ordered started weekly vit d Dose meds/antibiotics for reduced GFR. Avoid fleets enema/magnesium based laxatives. Avoid nephrotoxins/NSAIDs/ iodinated contrast (unless needed emergently) Glycemic control Further work up/management as per primary team SW for outpt hd placement. can f/up as outpt for renal recovery. stable from renal perspective. Thanks for allowing me to participate in care of your patient. Will follow patient with you. Please call if any Qs. had d/w team Dr Kenji Salmeron Office: [phone] Chief Complaint; fatigue Reason for consult: Acute Kidney Injury HPI: Pt is a 52 F with hx of alcoholism in past, cirrhosis (pt states got better on its own in past) but no regular follow up with PMD presented with complaints of fatigue and tiredness for last few days, found to have severe anemia and FELIPE Denies OTC/herbal meds but NSAIDs as alleve for last few days No recent iodinated contrast exposure. Noted obvious episodes of low BP. reports chronic leg swelling but more now denies smoking or etoh now ROS: c/o swelling in leg. had gastric ulcers on EGD Cardiovascular: No chest pain. Pulmonary: No shortness of breath Gastrointestinal: denies abdominal pain No nausea. No vomiting. Genitourinary: No pain while urinating. Denies blood in urine. All other negative except as mentioned in HPI Physical Examination: General Appearance: Comfortable, in no acute respiratory distress, co-operative . morbid obese Vitals reviewed and noted as below Head; Atraumatic, normocephalic ENT: no ulcers no thrush. Tongue is midline. Oropharynx: no rash or ulcers. EYES: Pupils are equal, round and reactive to light accommodation. Eye muscles and extraocular movement intact. Sclera is anicteric. Neck; supple no lymphadenopathy, no thyromegaly or bruit Lungs: Normal respiratory rate/effort. Breath sounds bilateral reduced at bases Heart: Normal rate. s1s2 normal. No rub or gallop. Extremities: 3+ edema. No varicose veins Neurological: Patient is alert, awake and oriented to person, place and time. No focal deficit. Strength bilateral appropriate and equal Skin: Warm and dry. Normal turgor. spider angioma rash upper chest. Palpitation: Normal elasticity for age Abdomen: Abdomen is soft. Bowel sounds +. There is no abdominal tenderness, no guarding/rigidity no organomegaly. limited due to obesity and abd wall edema Psych: normal insight and normal affect/mood MSK: no joint tenderness or swelling. Digits and nails normal, no deformity : kidney or bladder not palpable. has lee has access as permacath Labs/imaging reviewed. Past medical history, past surgical history, family history, social history, allergy reviewed and noted as below Family hx: no hx of CKD. Rest non-contributory fena 0.3% intra-ab lymphadenopathy Objective - Vital Signs/Intake and Output Vital Signs (last 24 hours): Temp Pulse Resp BP Pulse Ox 98.1 F 76 20 93/40 L 96 04/09/18 06:00 04/09/18 10:00 04/09/18 06:00 04/09/18 06:00 04/09/18 06:00 Intake and Output: 04/09/18 04/09/18 06:59 18:59 Intake Total 240 Balance 240 - Medications Medications: Current Medications Albuterol/Ipratropium (Duoneb 3 Mg/0.5 Mg (3 Ml) Ud) 3 ml IH [id number] [facility] Last Admin: 04/09/18 13:08 Dose: Not Given Albuterol/Ipratropium (Duoneb 3 Mg/0.5 Mg (3 Ml) Ud) 3 ml IH Q2H PRN PRN Reason: Shortness of Breath Alprazolam (Xanax) 0.25 mg PO TID PRN; Protocol PRN Reason: anxiety/restlessness Stop: 04/11/18 18:01 Last Admin: 04/08/18 21:12 Dose: 0.25 mg Darbepoetin Fletcher (Aranesp) 100 mcg IVP QWK [facility] Last Admin: 04/09/18 09:04 Dose: 100 mcg Ergocalciferol (Drisdol 50,000 Intl Units Cap) 1 cap PO Q7D [facility] Last Admin: 04/08/18 08:12 Dose: 1 cap Iron Sucrose 100 mg/ Sodium (Chloride) 105 mls @ 210 mls/hr IVPB DAILY [facility] Stop: 04/15/18 10:01 Last Admin: 04/08/18 09:11 Dose: 210 mls/hr Pantoprazole Sodium (Protonix Inj) 40 mg IVP Q12 [facility] Last Admin: 04/08/18 21:13 Dose: 40 mg Sevelamer HCl (Renagel) 800 mg PO TID [facility] Last Admin: 04/09/18 13:38 Dose: Not Given Trazodone HCl (Desyrel) 100 mg PO HS [facility] Last Admin: 04/08/18 21:13 Dose: 100 mg Vitamin B Complex/Vit C/Folic Acid (Nephro-Bhupinder) 1 tab PO 0800 [facility] Last Admin: 04/08/18 08:11 Dose: 1 tab - Labs Labs: 04/09/18 08:30 04/09/18 08:30 PT 13.2 SECONDS (9.4-12.5) H 04/03/18 15:44 INR 1.15 04/03/18 15:44 APTT 30.7 Seconds (25.1-36.5) 04/03/18 15:44
[2018-04-09] MEDS: Multivitamin Vitamin B Complex (Nephro-Vite) Tab PO SCH (14:33)
--- NOTE | 2018-04-09 15:08 | CP.PCM.PCO ---
Physician Communication Note - Physician Communication Note Physician Communication Note: pt was at HD today, as per staff pt is doing better, no agitation, will f/u
--- NOTE | 2018-04-09 15:54 | CP.PCM.PN ---
<Nhung Anne - Last Filed: 04/09/18 15:46> Subjective - Date & Time of Evaluation Date of Evaluation: 04/09/18 Time of Evaluation: 10:55 - Subjective Subjective: Nhung Anne PGY1 Hospital Progress Note Patient seen and examined at bedside this morning. No acute events overnight. Offers no complaints today. Received 4th HD today. On MWF schedule for now. Objective - Vital Signs/Intake and Output Vital Signs (last 24 hours): Temp Pulse Resp BP Pulse Ox 98.5 F 58 L 19 93/44 L 96 04/09/18 12:00 04/09/18 12:00 04/09/18 12:00 04/09/18 12:00 04/09/18 06:00 Intake and Output: 04/09/18 04/09/18 06:59 18:59 Intake Total 240 Balance 240 - Medications Medications: Current Medications Albuterol/Ipratropium (Duoneb 3 Mg/0.5 Mg (3 Ml) Ud) 3 ml IH [id number] [facility] Last Admin: 04/09/18 13:08 Dose: Not Given Albuterol/Ipratropium (Duoneb 3 Mg/0.5 Mg (3 Ml) Ud) 3 ml IH Q2H PRN PRN Reason: Shortness of Breath Alprazolam (Xanax) 0.25 mg PO TID PRN; Protocol PRN Reason: anxiety/restlessness Stop: 04/11/18 18:01 Last Admin: 04/08/18 21:12 Dose: 0.25 mg Darbepoetin Fletcher (Aranesp) 100 mcg IVP QWK [facility] Last Admin: 04/09/18 09:04 Dose: 100 mcg Ergocalciferol (Drisdol 50,000 Intl Units Cap) 1 cap PO Q7D [facility] Last Admin: 04/08/18 08:12 Dose: 1 cap Iron Sucrose 100 mg/ Sodium (Chloride) 105 mls @ 210 mls/hr IVPB DAILY [facility] Stop: 04/15/18 10:01 Last Admin: 04/09/18 14:34 Dose: 210 mls/hr Pantoprazole Sodium (Protonix Inj) 40 mg IVP Q12 [facility] Last Admin: 04/09/18 14:33 Dose: 40 mg Sevelamer HCl (Renagel) 800 mg PO TID [facility] Last Admin: 04/09/18 14:33 Dose: 800 mg Trazodone HCl (Desyrel) 100 mg PO HS [facility] Last Admin: 04/08/18 21:13 Dose: 100 mg Vitamin B Complex/Vit C/Folic Acid (Nephro-Bhupinder) 1 tab PO 0800 [facility] Last Admin: 04/09/18 14:33 Dose: 1 tab - Labs Labs: 04/09/18 08:30 04/09/18 08:30 PT 13.2 SECONDS (9.4-12.5) H 04/03/18 15:44 INR 1.15 04/03/18 15:44 APTT 30.7 Seconds (25.1-36.5) 04/03/18 15:44 - Additional Findings Additional findings: - Constitutional Appears: No Acute Distress - Head Exam Head Exam: NORMAL INSPECTION, ATRAUMATIC - Eye Exam Eye Exam: EOMI, PERRL - ENT Exam ENT Exam: Mucous Membranes Moist, Normal Exam - Neck Exam Neck exam: Positive for: Normal Inspection - Respiratory Exam Respiratory Exam: Clear to Auscultation Bilateral. absent: Rales, Rhonchi, Wheezes, respiratory distress - Cardiovascular Exam Cardiovascular Exam: Regular rhythm, +S1, +S2. absent: Systolic Murmur - GI/Abdominal Exam GI & Abdominal Exam: Soft. Bowel sounds heard in all 4 quadrants absent: Distended, Guarding, Rebound, Tenderness - Extremities Exam Extremities exam: Positive for: pedal edema Additional comments: 3+ edema diffuse noted on both legs - draining minimal clear fluid - Neurological Exam Neurological exam: Alert, CN II-XII Intact, Oriented x3 - Skin Skin Exam: Dry, Intact and Pallor Assessment and Plan - Assessment and Plan (Free Text) Assessment: Patient is a 52 yo F with past medical history liver failure, morbid obesity, and EtOH abuse presents to [facility] [place] for worsening weakness and admitted for management of anemia and FELIPE with metabolic acidosis. Plan: Acute renal failure -s/p 4th HD today, 2.7 L removed. 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 Salmeron -UCx grew E.Coli Microcytic anemia -s/p total 11 units pRBCs, 2 FFPs -endoscopy showed 3 non bleeding gastric ulcers, largest one 8mm -iron studies shows likely iron deficiency -Venofer 100 mg IV daily -Head CT unremarkable -CTAP shows adenopathy of the hepatic gastric ligament -GI on consult, Dr. Melo B/L leg fluid weeping -repeat ext US today, final read pending -podiatry on consult -WCx WCx grew Enterobacter Cloacae, E. faecalis -local wound care -no antibx for now as per ID -PT eval for d/c planning Metabolic acidosis -initial pH 7.26, HCO3 11, pCO2 22 -Repeat ABG shows anion gap metabolic acidosis with negative delta delta gap significant for superimposing hyperchloremia Elevated BNP -BNP 58906 on admission -Echo showed EF of 68%, mild TR/MR, mild pulm HTN, borderline LVH Depression -Psych on consult, Dr. Ramos -continue trazodone PPX/Diet -protonix (deferring heparin and SCDs) -renal diet Patient seen and case discussed with attending, Dr. Ross <Miko Ross - Last Filed: 04/09/18 16:17> Objective - Vital Signs/Intake and Output Vital Signs (last 24 hours): Temp Pulse Resp BP Pulse Ox 98.5 F 58 L 19 93/44 L 96 04/09/18 12:00 04/09/18 12:00 04/09/18 12:00 04/09/18 12:00 04/09/18 06:00 Intake and Output: 04/09/18 04/09/18 06:59 18:59 Intake Total 240 Balance 240 - Medications Medications: Current Medications Albuterol/Ipratropium (Duoneb 3 Mg/0.5 Mg (3 Ml) Ud) 3 ml IH [id number] [facility] Last Admin: 04/09/18 13:08 Dose: Not Given Albuterol/Ipratropium (Duoneb 3 Mg/0.5 Mg (3 Ml) Ud) 3 ml IH Q2H PRN PRN Reason: Shortness of Breath Alprazolam (Xanax) 0.25 mg PO TID PRN; Protocol PRN Reason: anxiety/restlessness Stop: 04/11/18 18:01 Last Admin: 04/08/18 21:12 Dose: 0.25 mg Darbepoetin Fletcher (Aranesp) 100 mcg IVP QWK [facility] Last Admin: 04/09/18 09:04 Dose: 100 mcg Ergocalciferol (Drisdol 50,000 Intl Units Cap) 1 cap PO Q7D [facility] Last Admin: 04/08/18 08:12 Dose: 1 cap Iron Sucrose 100 mg/ Sodium (Chloride) 105 mls @ 210 mls/hr IVPB DAILY [facility] Stop: 04/15/18 10:01 Last Admin: 04/09/18 14:34 Dose: 210 mls/hr Pantoprazole Sodium (Protonix Inj) 40 mg IVP Q12 [facility] Last Admin: 04/09/18 14:33 Dose: 40 mg Sevelamer HCl (Renagel) 800 mg PO TID [facility] Last Admin: 04/09/18 14:33 Dose: 800 mg Trazodone HCl (Desyrel) 100 mg PO HS [facility] Last Admin: 04/08/18 21:13 Dose: 100 mg Vitamin B Complex/Vit C/Folic Acid (Nephro-Bhupinder) 1 tab PO 0800 [facility] Last Admin: 04/09/18 14:33 Dose: 1 tab - Labs Labs: 04/09/18 08:30 04/09/18 08:30 PT 13.2 SECONDS (9.4-12.5) H 04/03/18 15:44 INR 1.15 04/03/18 15:44 APTT 30.7 Seconds (25.1-36.5) 04/03/18 15:44 Attending/Attestation - Attestation I have personally seen and examined this patient.: Yes I have fully participated in the care of the patient.: Yes I have reviewed all pertinent clinical information, including history, physical exam and plan: Yes Notes (Text): 04/09/18 16:16 52 year old female with past medical history of liver failure, alcohol abuse, depression and gastric bypass surgery who presented with complaint of generalized weakness, fatigue and dark stools. She was found to have acute microcytic anemia and severe metabolic acidosis with acute renal failure. She is s/p multiple PRBC transfusions. She is s/p EGD which showed multiple gastric ulcers. She is on protonix and s/p octreotide. Continue to monitory CBC closely. H/H has been stable. Patient was started on iv iron. Nephrology is following for FELIPE and metabolic acidosis. Patient has been start ed on hemodialysis. Podiatry is following for bilateral LE swelling and weeping. Continue with loc al wound care. Wound culture noted to be positive for Enterobacter cloacae abd Enterococcus faecalis. LE dopplers ordered for today. Urine culture is growing E coli. However patient is asymptomatic. Monitor off antibiotics as per ID. PT evaluation was appreciated who recommended JENNA. Miko Ross MD Hospitalist.
--- NOTE | 2018-04-09 16:15 | US ---
PROCEDURE: Lower extremity KIRK exam HISTORY: Peripheral vascular disease with ischemic pain PHYSICIAN(S): Ramsey Ny MD. FINDINGS: The exam is limited by cuff evaluation at the calf ankle and metatarsal levels only. The PVR waveforms are limited by artifact The right resting KIRK is mildly abnormal, 0.85. The left resting KIRK is normal, 0.9 The brachial systolic pressures are symmetric. There is a 63 mm difference between the calf pressures, lower on the right. This could represent right SFA occlusive disease. Interestingly, the metatarsal waveforms are normal bilaterally. This suggests that there is not significant occlusive disease present IMPRESSION: 1. Limited study due to artifact. 2. Possible right SFA occlusive disease 3. The metatarsal waveforms are normal and symmetric
[2018-04-09 20:41] LABS: ANCA SCREEN NEGATIVE (NEGATIVE)
[2018-04-10] MEDS: Albuterol-Ipratrop 3 mg / 0.5 (3 ml) UD IH SCH ×4 (01:40→19:31)
[2018-04-10 08:24] LABS: ALB/GLOB RATIO 0.6 (1.1-1.8); ALBUMIN 2.1 g/dL (3.0-4.8); CALCIUM 7.6 mg/dL (8.4-10.5)
[2018-04-10 08:35] LABS: BASO # 0.02 K/mm3 (0.0-2.0); BASO % 0.2 % (0.0-3.0); EOS # 0.6 (0.0-0.7); EOS % 6.9 % (1.5-5.0); GRAN # 6.12 (1.4-6.5); GRAN % 72.7 % (50.0-68.0); HEMOGLOBIN 8.5 g/dL (12.0-16.0); LYMPH # 0.8 (1.2-3.4); LYMPH % 8.9 % (22.0-35.0); MEAN CELL VOLUME 86.9 fl (80.0-105.0); MEAN CORPUSCULAR HEMOGLOBIN 27.9 pg (25.0-35.0); MEAN CORPUSCULAR HGB CONC 32.1 g/dl (31.0-37.0); MEAN PLATELET VOLUME 8.6 fl (7.0-11.0); MONO % 11.3 % (1.0-6.0); RBC 3.05 10^6/uL (3.5-6.1); RED CELL DISTRIBUTION WIDTH 20.9 % (11.5-14.5); WHITE BLOOD COUNT 8.4 10^3/uL (4.5-11.0)
[2018-04-10] MEDS: Multivitamin Vitamin B Complex (Nephro-Vite) Tab PO SCH (10:12)
--- NOTE | 2018-04-10 12:20 | CP.PCM.PN ---
<Nhung Anne - Last Filed: 04/10/18 12:49> Subjective - Date & Time of Evaluation Date of Evaluation: 04/10/18 Time of Evaluation: 08:16 - Subjective Subjective: Nhung Anne Y1 Hospital Progress Note Patient seen and examined at bedside this morning. No acute events reported overnight. Currently on MWF HD schedule. Working with supportive employment case manager to find outpatient HD set up. Offers no complaints today. Objective - Vital Signs/Intake and Output Vital Signs (last 24 hours): Temp Pulse Resp BP Pulse Ox 98.2 F 92 H 20 92/43 L 96 04/10/18 06:00 04/10/18 10:00 04/10/18 06:00 04/10/18 06:00 04/10/18 06:00 Intake and Output: 04/10/18 04/10/18 06:59 18:59 Intake Total 420 100 Balance 420 100 - Medications Medications: Current Medications Albuterol/Ipratropium (Duoneb 3 Mg/0.5 Mg (3 Ml) Ud) 3 ml IH [id number] [facility] Last Admin: 04/10/18 07:49 Dose: 3 ml Albuterol/Ipratropium (Duoneb 3 Mg/0.5 Mg (3 Ml) Ud) 3 ml IH Q2H PRN PRN Reason: Shortness of Breath Alprazolam (Xanax) 0.25 mg PO TID PRN; Protocol PRN Reason: anxiety/restlessness Stop: 04/11/18 18:01 Last Admin: 04/08/18 21:12 Dose: 0.25 mg Darbepoetin Fletcher (Aranesp) 100 mcg IVP QWK [facility] Last Admin: 04/09/18 09:04 Dose: 100 mcg Ergocalciferol (Drisdol 50,000 Intl Units Cap) 1 cap PO Q7D [facility] Last Admin: 04/08/18 08:12 Dose: 1 cap Iron Sucrose 100 mg/ Sodium (Chloride) 105 mls @ 210 mls/hr IVPB DAILY [facility] Stop: 04/15/18 10:01 Last Admin: 04/10/18 10:13 Dose: 210 mls/hr Midodrine (Proamatine) 10 mg PO [facility] [place] Pantoprazole Sodium (Protonix Inj) 40 mg IVP Q12 [facility] Last Admin: 04/10/18 10:12 Dose: 40 mg Sevelamer HCl (Renagel) 800 mg PO TID [facility] Last Admin: 04/10/18 10:13 Dose: 800 mg Trazodone HCl (Desyrel) 100 mg PO HS [facility] Last Admin: 04/09/18 21:20 Dose: 100 mg Vitamin B Complex/Vit C/Folic Acid (Nephro-Bhupinder) 1 tab PO 0800 [facility] Last Admin: 04/10/18 10:12 Dose: 1 tab - Labs Labs: 04/10/18 08:00 04/10/18 08:00 PT 13.2 SECONDS (9.4-12.5) H 04/03/18 15:44 INR 1.15 04/03/18 15:44 APTT 30.7 Seconds (25.1-36.5) 04/03/18 15:44 - Additional Findings Additional findings: - Constitutional Appears: No Acute Distress - Head Exam Head Exam: NORMAL INSPECTION, ATRAUMATIC - Eye Exam Eye Exam: EOMI, PERRL - ENT Exam ENT Exam: Mucous Membranes Moist, Normal Exam - Neck Exam Neck exam: Positive for: Normal Inspection - Respiratory Exam Respiratory Exam: Clear to Auscultation Bilateral. absent: Rales, Rhonchi, Wheezes, respiratory distress - Cardiovascular Exam Cardiovascular Exam: Regular rhythm, +S1, +S2. absent: Systolic Murmur - GI/Abdominal Exam GI & Abdominal Exam: Soft. Bowel sounds heard in all 4 quadrants absent: Distended, Guarding, Rebound, Tenderness - Extremities Exam Extremities exam: Positive for: pedal edema Additional comments: 3+ edema diffuse noted on both legs -no draining noted on lower extremities today - Neurological Exam Neurological exam: Alert, CN II-XII Intact, Oriented x3 - Skin Skin Exam: Dry, Intact and Pallor Assessment and Plan - Assessment and Plan (Free Text) Assessment: Patient is a 52 yo F with past medical history liver failure, morbid obesity, and EtOH abuse [place] [facility] [place] and admitted for management of anemia and FELIPE with metabolic acidosis. Focusing on outpatient HD and PT. Plan: Acute renal failure -Will start MWF HD schedule -s/p 4th HD on 04/09/18 2.7 L removed -working with supportive employment case manager for outpatient HD setup -BUN/Cr at baseline -Renal US is unremarkable -Renagel 800 mg PO TID -Strict I's and O's -Nephrology on consult, Dr. Salmeron -UCx positive for E.Coli B/L leg swelling - improved -repeat ext US shows possible right SFA occlusive disease, limited study due to artifact -podiatry on consult, no further recommendations, local wound care for now - not currently draining -wound culture grew Enterobacter Cloacae, E. faecalis -no antibx for now as per ID -PT eval for d/c planning, recommend skilled PT services Microcytic anemia -s/p total 11 units pRBCs, 2 FFPs -endoscopy showed 3 non bleeding gastric ulcers, largest one 8mm -iron studies shows likely iron deficiency -Venofer 100 mg IV daily -Head CT unremarkable -CTAP shows adenopathy of the hepatic gastric ligament -GI on consult, Dr. Melo Metabolic acidosis -initial pH 7.26, HCO3 11, pCO2 22 -Repeat ABG shows anion gap metabolic acidosis with negative delta delta gap significant for superimposing hyperchloremia Elevated BNP -BNP 58414 on admission -Echo showed EF of 68%, mild TR/MR, mild pulm HTN, borderline LVH Depression -Psych on consult, Dr. Ramos -continue trazodone PPX/Diet -protonix (deferring heparin and SCD's at this time) -renal diet Patient seen and case discussed with attending, Dr. Ross <Miko Ross - Last Filed: 04/10/18 13:19> Objective - Vital Signs/Intake and Output Vital Signs (last 24 hours): Temp Pulse Resp BP Pulse Ox 98.8 F 81 18 113/55 L 96 04/10/18 12:00 04/10/18 12:00 04/10/18 12:00 04/10/18 12:00 04/10/18 06:00 Intake and Output: 04/10/18 04/10/18 06:59 18:59 Intake Total 420 100 Balance 420 100 - Medications Medications: Current Medications Albuterol/Ipratropium (Duoneb 3 Mg/0.5 Mg (3 Ml) Ud) 3 ml IH [id number] [facility] Last Admin: 04/10/18 13:00 Dose: 3 ml Albuterol/Ipratropium (Duoneb 3 Mg/0.5 Mg (3 Ml) Ud) 3 ml IH Q2H PRN PRN Reason: Shortness of Breath Alprazolam (Xanax) 0.25 mg PO TID PRN; Protocol PRN Reason: anxiety/restlessness Stop: 04/11/18 18:01 Last Admin: 04/08/18 21:12 Dose: 0.25 mg Darbepoetin Fletcher (Aranesp) 100 mcg IVP QWK [facility] Last Admin: 04/09/18 09:04 Dose: 100 mcg Ergocalciferol (Drisdol 50,000 Intl Units Cap) 1 cap PO Q7D [facility] Last Admin: 04/08/18 08:12 Dose: 1 cap Iron Sucrose 100 mg/ Sodium (Chloride) 105 mls @ 210 mls/hr IVPB DAILY [facility] Stop: 04/15/18 10:01 Last Admin: 04/10/18 10:13 Dose: 210 mls/hr Midodrine (Proamatine) 10 mg PO MWF [facility] Pantoprazole Sodium (Protonix Inj) 40 mg IVP Q12 [facility] Last Admin: 04/10/18 10:12 Dose: 40 mg Sevelamer HCl (Renagel) 800 mg PO TID [facility] Last Admin: 04/10/18 10:13 Dose: 800 mg Trazodone HCl (Desyrel) 100 mg PO HS [facility] Last Admin: 04/09/18 21:20 Dose: 100 mg Vitamin B Complex/Vit C/Folic Acid (Nephro-Bhupinder) 1 tab PO 0800 [facility] Last Admin: 04/10/18 10:12 Dose: 1 tab - Labs Labs: 04/10/18 08:00 04/10/18 08:00 PT 13.2 SECONDS (9.4-12.5) H 04/03/18 15:44 INR 1.15 04/03/18 15:44 APTT 30.7 Seconds (25.1-36.5) 04/03/18 15:44 Attending/Attestation - Attestation I have personally seen and examined this patient.: Yes I have fully participated in the care of the patient.: Yes I have reviewed all pertinent clinical information, including history, physical exam and plan: Yes Notes (Text): 04/10/18 13:17 52 year old female with past medical history of liver failure, alcohol abuse, depression and gastric bypass surgery who presented with complaint of gene ralized weakness, fatigue and dark stools. She was found to have acute microcytic anemia and severe metabolic acidosis with acute renal failure. She is s/p multiple PRBC transfusions. She is s/p EGD which showed multiple gastric ulcers. She is on protonix and s/p octreotide. Continue to monitory CBC closely. H/H has been stable. Patient was started on iv iron. Nephrology is following for FELIPE and metabolic acidosis. Patient has been started on hemodialysis. Will need outpatient dialysis set up for d/c planning. Podiatry is following for bilateral LE swelling and weeping. Continue with local wound care. Wound culture noted to be positive for Enterobacter cloacae abd Enterococcus faecalis. Urine culture is growing E coli. However patient is asymptomatic. Monitor off antibiotics as per ID. PT evaluation was appreciated who recommended JENNA. Will need to discuss with CMx/Sw regarding d/c planning in addition to outpatient dialysis set up. Miko Ross MD Hospitalist.
--- NOTE | 2018-04-10 13:27 | PN ---
DATE: 04/10/2018 SUBJECTIVE: The patient is in bed in no acute distress, nontoxic. No fevers and chills. PHYSICAL EXAMINATION: VITAL SIGNS: Temperature is 98, blood pressure is 113/50, respiratory rate of 20, heart rate of 92. HEENT: Unremarkable. NECK: Supple. LUNGS: Have decreased breath sounds. HEART: Normal S1, S2. ABDOMEN: Soft. LABORATORY EXAMINATION: Reveals the patient's white count is 8.5, hemoglobin is noted and platelets of 90,000. Chemistries are noted. The creatinine is 4.5 and microbiology is noted with Enterobacter cloacae and Enterococcus from the left leg and urine culture is Escherichia coli in the urine cultures relatively katz sensitive except for resistance to Bactrim. Review of orders reveals the patient to be off of antibiotics. ASSESSMENT AND PLAN: This is a 52-year-old female with obesity with a BMI of 52, super morbid obesity with a chronic renal failure, renal disease with systemic inflammatory response syndrome, bilateral chronic erythema lower extremity edema, found to have gastric ulcers, anemia, chronic changes of the lower extremities and Escherichia coli in the urine which is pansensitive except for Bactrim resistance, currently off of antibiotics, afebrile with chronic lower extremity edema and chronic changes. No indication for antibiotics at this point. However, the patient is at risk for developing nosocomial infections. We will follow with you. Orion Thompson MD
--- NOTE | 2018-04-10 13:41 | CP.PCM.PN ---
Subjective - Date & Time of Evaluation Date of Evaluation: 04/10/18 Time of Evaluation: 13:40 - Subjective Subjective: Nephrology Consultation Note: Assessment: stable oligoanuric Acute Kidney Injury (N17.9) likely due to ATN, pre-renal state, intrasvasc hypovolemia, impaired renal perfusion, HD 04/05/18: first session anasarca severe symptomatic anemia due to GI bleed with gastric ulcers mild hyperkalemia and HAGMA, hyperphos hx of cirrhosis and etoh intra-ab lymphadenopathy morbid obesity Plan HD tolerated well so far, on MWF schedule Maintain hemodynamics stable. Avoid hypotension. Patient not on ACEI/ARB due to recent FELIPE. added midodrine pre HD Monitor Input/Output, daily weights and renal function with basic metabolic panel added phos binders PRBC as needed. started IV iron. on weekly aranesp GI consult pt on PPI work up for FELIPE and anemia as ordered. GN work up neg hence will defer kidney biopsy. also pt with liver disease and morbidly obese. started weekly vit d Dose meds/antibiotics for reduced GFR. Avoid fleets enema/magnesium based laxatives. Avoid nephrotoxins/NSAIDs/ iodinated contrast (unless needed emergently) Glycemic control Further work up/management as per primary team SW for outpt hd placement. can f/up as outpt for renal recovery. stable from renal perspective. Thanks for allowing me to participate in care of your patient. Will follow patient with you. Please call if any Qs. had d/w team Dr Kenji Salmeron Office: [phone] Chief Complaint; fatigue Reason for consult: Acute Kidney Injury HPI: Pt is a 52 F with hx of alcoholism in past, cirrhosis (pt states got better on its own in past) but no regular follow up with PMD presented with complaints of fatigue and tiredness for last few days, found to have severe anemia and FELIPE Denies OTC/herbal meds but NSAIDs as alleve for last few days No recent iodinated contrast exposure. Noted obvious episodes of low BP. reports chronic leg swelling but more now denies smoking or etoh now ROS: c/o swelling in leg. had gastric ulcers on EGD Cardiovascular: No chest pain. Pulmonary: No shortness of breath Gastrointestinal: denies abdominal pain No nausea. No vomiting. Genitourinary: No pain while urinating. Denies blood in urine. All other negative except as mentioned in HPI Physical Examination: General Appearance: Comfortable, in no acute respiratory distress, co-operative . morbid obese Vitals reviewed and noted as below Head; Atraumatic, normocephalic ENT: no ulcers no thrush. Tongue is midline. Oropharynx: no rash or ulcers. EYES: Pupils are equal, round and reactive to light accommodation. Eye muscles and extraocular movement intact. Sclera is anicteric. Neck; supple no lymphadenopathy, no thyromegaly or bruit Lungs: Normal respiratory rate/effort. Breath sounds bilateral reduced at bases Heart: Normal rate. s1s2 normal. No rub or gallop. Extremities: 3+ edema. Neurological: Patient is alert, awake and oriented to person, place and time. No focal deficit. Strength bilateral appropriate and equal Skin: Warm and dry. Normal turgor. spider angioma rash upper chest. Palpitation: Normal elasticity for age Abdomen: Abdomen is soft. Bowel sounds +. There is no abdominal tenderness, no guarding/rigidity no organomegaly. limited due to obesity and abd wall edema Psych: normal insight and normal affect/mood MSK: no joint tenderness or swelling. Digits and nails normal, no deformity : kidney or bladder not palpable. has lee has access as permacath Labs/imaging reviewed. Past medical history, past surgical history, family history, social history, allergy reviewed and noted as below Family hx: no hx of CKD. Rest non-contributory fena 0.3% intra-ab lymphadenopathy Objective - Vital Signs/Intake and Output Vital Signs (last 24 hours): Temp Pulse Resp BP Pulse Ox 98.8 F 81 18 113/55 L 96 04/10/18 12:00 04/10/18 12:00 04/10/18 12:00 04/10/18 12:00 04/10/18 06:00 Intake and Output: 04/10/18 04/10/18 06:59 18:59 Intake Total 420 100 Balance 420 100 - Medications Medications: Current Medications Albuterol/Ipratropium (Duoneb 3 Mg/0.5 Mg (3 Ml) Ud) 3 ml IH [id number] [facility] Last Admin: 04/10/18 13:00 Dose: 3 ml Albuterol/Ipratropium (Duoneb 3 Mg/0.5 Mg (3 Ml) Ud) 3 ml IH Q2H PRN PRN Reason: Shortness of Breath Alprazolam (Xanax) 0.25 mg PO TID PRN; Protocol PRN Reason: anxiety/restlessness Stop: 04/11/18 18:01 Last Admin: 04/08/18 21:12 Dose: 0.25 mg Darbepoetin Fletcher (Aranesp) 100 mcg IVP QWK [facility] Last Admin: 04/09/18 09:04 Dose: 100 mcg Ergocalciferol (Drisdol 50,000 Intl Units Cap) 1 cap PO Q7D [facility] Last Admin: 04/08/18 08:12 Dose: 1 cap Iron Sucrose 100 mg/ Sodium (Chloride) 105 mls @ 210 mls/hr IVPB DAILY [facility] Stop: 04/15/18 10:01 Last Admin: 04/10/18 10:13 Dose: 210 mls/hr Midodrine (Proamatine) 10 mg PO MWF [facility] Pantoprazole Sodium (Protonix Inj) 40 mg IVP Q12 [facility] Last Admin: 04/10/18 10:12 Dose: 40 mg Sevelamer HCl (Renagel) 800 mg PO TID [facility] Last Admin: 04/10/18 10:13 Dose: 800 mg Trazodone HCl (Desyrel) 100 mg PO HS [facility] Last Admin: 04/09/18 21:20 Dose: 100 mg Vitamin B Complex/Vit C/Folic Acid (Nephro-Bhupinder) 1 tab PO 0800 [facility] Last Admin: 04/10/18 10:12 Dose: 1 tab - Labs Labs: 04/10/18 08:00 04/10/18 08:00 PT 13.2 SECONDS (9.4-12.5) H 04/03/18 15:44 INR 1.15 04/03/18 15:44 APTT 30.7 Seconds (25.1-36.5) 04/03/18 15:44
--- NOTE | 2018-04-10 13:56 | PN ---
DATE: 04/10/2018 SUBJECTIVE: The patient is 52-year-old female, multiple medical issues, history of liver failure, morbid obesity, history of alcohol abuse. The patient was admitted on ICU for worsening of weakness. The patient was found to have anemia and acute kidney injury as with metabolic acidosis, acute renal failure. At present moment, the patient is on hemodialysis. The patient was found to have microcytic anemia. The patient had bilateral leg fluid weeping, metabolic acidosis, elevated BMP, depression for what this director underwriter sales was consulted. The patient was seen today. The patient presented to be alert and oriented, pleasant, cooperative. The patient reported that Xanax is helping her with her anxiety. The patient reports that she sleeps better on trazodone. The patient reported that overall she is feeling a little bit better. The patient denied being depressed. The patient denied being hopeless or helpless. The patient is very pleased with this director underwriter sales services and asked her to follow up on her every other day. PHYSICAL EXAMINATION: VITAL SIGNS: Seems to be stable. Temperature 98.2, pulse 70, blood pressure 92/43, respiration 26 and saturation is 96. MEDICATIONS: Reviewed. The patient is on DuoNeb, Xanax 0.25 mg three times day as needed. The patient is on Drisdol, Protonix, Renagel, trazodone 100 mg at the nighttime and Nephro-Bhupinder. LABORATORY DATA: Labs reviewed. Most recent was from today. MENTAL STATUS EXAM: The patient presented to be alert, pleasant, cooperative. Fair eye contact. Mood described as "I feel better." Affect was more reactive, mood congruent. Thought process, coherent and goal directed. Thought content, the patient denied visual, auditory or tactile hallucinations. Denied paranoid ideation. Denied thoughts of harming herself or others and intent or plan. Insight and judgment seems to be improving. Impulses are well controlled. IMPRESSION: Rule out major depressive disorder, rule out adjustment disorder, rule out mood disorder due to general medical condition and anxiety disorder due to general medical condition. PLAN: Continue trazodone 100 mg at the nighttime. Continue Xanax 0.25 mg three times day as needed for anxiety. The patient is on hemodialysis and multiple medical issues. We will follow up on this patient every other day. The patient pose no imminent danger to self or others. Thank you very much for letting me participate in care of your patient. Should you have any questions give me a call back. Rachel Maradiaga MD SAL
--- NOTE | 2018-04-10 16:59 | CP.PCM.PN ---
<AlfaroTaylor - Last Filed: 04/10/18 16:56> Subjective - Date & Time of Evaluation Date of Evaluation: 04/10/18 Time of Evaluation: 16:56 - Subjective Subjective: 52F patient with PMHx of CHF, former alcohol abuse, depression, gastric surgery, morbid obesity seen and evaluated for b/l edema with left heel ulcer. Denies acute overnight events, denies f/n/v/sob/cp. States she feels like the drainage in the legs has decreased. Patient admits to minimal pain in her leg. Objective - Vital Signs/Intake and Output Vital Signs (last 24 hours): Temp Pulse Resp BP Pulse Ox 98.8 F 81 18 113/55 L 96 04/10/18 12:00 04/10/18 14:00 04/10/18 12:00 04/10/18 12:00 04/10/18 06:00 Intake and Output: 04/10/18 04/10/18 06:59 18:59 Intake Total 420 100 Balance 420 100 - Medications Medications: Current Medications Albuterol/Ipratropium (Duoneb 3 Mg/0.5 Mg (3 Ml) Ud) 3 ml IH [id number] [facility] Last Admin: 04/10/18 13:00 Dose: 3 ml Albuterol/Ipratropium (Duoneb 3 Mg/0.5 Mg (3 Ml) Ud) 3 ml IH Q2H PRN PRN Reason: Shortness of Breath Alprazolam (Xanax) 0.25 mg PO TID PRN; Protocol PRN Reason: anxiety/restlessness Stop: 04/11/18 18:01 Last Admin: 04/08/18 21:12 Dose: 0.25 mg Darbepoetin Fletcher (Aranesp) 100 mcg IVP QWK [facility] Last Admin: 04/09/18 09:04 Dose: 100 mcg Ergocalciferol (Drisdol 50,000 Intl Units Cap) 1 cap PO Q7D [facility] Last Admin: 04/08/18 08:12 Dose: 1 cap Iron Sucrose 100 mg/ Sodium (Chloride) 105 mls @ 210 mls/hr IVPB DAILY [facility] Stop: 04/15/18 10:01 Last Admin: 04/10/18 10:13 Dose: 210 mls/hr Midodrine (Proamatine) 10 mg PO MWF [facility] Pantoprazole Sodium (Protonix Inj) 40 mg IVP Q12 [facility] Last Admin: 04/10/18 10:12 Dose: 40 mg Sevelamer HCl (Renagel) 800 mg PO TID [facility] Last Admin: 04/10/18 14:29 Dose: 800 mg Trazodone HCl (Desyrel) 100 mg PO HS [facility] Last Admin: 04/09/18 21:20 Dose: 100 mg Vitamin B Complex/Vit C/Folic Acid (Nephro-Bhupinder) 1 tab PO 0800 [facility] Last Admin: 04/10/18 10:12 Dose: 1 tab - Labs Labs: 04/10/18 08:00 04/10/18 08:00 PT 13.2 SECONDS (9.4-12.5) H 04/03/18 15:44 INR 1.15 04/03/18 15:44 APTT 30.7 Seconds (25.1-36.5) 04/03/18 15:44 - Constitutional Appears: Well, Non-toxic, No Acute Distress - Head Exam Head Exam: ATRAUMATIC, NORMOCEPHALIC - Eye Exam Eye Exam: EOMI, Normal appearance Pupil Exam: NORMAL ACCOMODATION - ENT Exam ENT Exam: Mucous Membranes Moist - Neck Exam Neck Exam: Normal Inspection - Respiratory Exam Respiratory Exam: Clear to Ausculation Bilateral - Extremities Exam Additional comments: B/L lower extremity exam: Vascular: DP/PT non palpable secondary to edema, CFT < 3 seconds, TG warm to warm, no pedal hair present, +2 pitting edema to bilateral lower extremities beginning at the tibial tuberosity and extending distally to the digits Ortho: Tenderness to palpation of b/l lower extremities, no gross deformities noted, MMT 4/5 Neuro: Gross sensation intact, protective sensation diminished Derm: thinning of the skin noted on the posterior aspect of b/l legs, no purulence, no tunneling, no tracking, no probe to bone. Mild erythema appreciated to bilateral LE, no streaking appreciated- healing of the superficial ulcerations noted Superficial ulceration noted at the plantar aspect of the left heel measuring approximately 1.5 cm x 2.0 cm x .1 cm, with granular base - Neurological Exam Neurological Exam: Alert, Awake Assessment and Plan - Assessment and Plan (Free Text) Assessment: 52F patient with PMHx of alcohol abuse, depression, gastric surgery, morbid obesity seen and evaluated for b/l edema with left heel ulcer Plan: Patient seen and evaluated with all questions and concerns addressed Chart, vitals, labs reviewed; afebrile, absent leukocytosis B/L LE US; no evidence of DVT to bilateral lower extremities B/l LE arterial US ordered: Right SfA occlusive disease Unna boots ordered;if arterial doppler is WNL unna boots juan carlos be applied Wound culture take from L heel; e cloacae, e faecalis - heavy growth Local wound care: L lower extremity dressed with maxorb, ABD DSD, PRUDENCIO, R lower extremity dressed with Xeroform, DSD, PRUDENCIO Patient informed to keep her legs elevated at all times to help control the swelling ID on board; appreciate recs Will continue to follow the patient Stable for discharge from podiatry point of view <Bart Montalvo - Last Filed: 04/11/18 11:19> Objective - Vital Signs/Intake and Output Vital Signs (last 24 hours): Temp Pulse Resp BP Pulse Ox 98.4 F 85 21 106/43 L 96 04/11/18 06:00 04/11/18 10:00 04/11/18 06:00 04/11/18 06:00 04/11/18 06:00 Intake and Output: 04/11/18 04/11/18 06:59 18:59 Intake Total 2040 200 Output Total 2 2502 Balance 2038 -2302 - Medications Medications: Current Medications Albuterol/Ipratropium (Duoneb 3 Mg/0.5 Mg (3 Ml) Ud) 3 ml IH [id number] [facility] Last Admin: 04/11/18 07:54 Dose: Not Given Albuterol/Ipratropium (Duoneb 3 Mg/0.5 Mg (3 Ml) Ud) 3 ml IH Q2H PRN PRN Reason: Shortness of Breath Last Admin: 04/10/18 23:56 Dose: 3 ml Alprazolam (Xanax) 0.25 mg PO TID PRN; Protocol PRN Reason: anxiety/restlessness Stop: 04/11/18 18:01 Last Admin: 04/10/18 23:42 Dose: 0.25 mg Darbepoetin Fletcher (Aranesp) 100 mcg IVP QWK [facility] Last Admin: 04/09/18 09:04 Dose: 100 mcg Ergocalciferol (Drisdol 50,000 Intl Units Cap) 1 cap PO Q7D [facility] Last Admin: 04/08/18 08:12 Dose: 1 cap Iron Sucrose 100 mg/ Sodium (Chloride) 105 mls @ 210 mls/hr IVPB DAILY [facility] Stop: 04/15/18 10:01 Last Admin: 04/10/18 10:13 Dose: 210 mls/hr Midodrine (Proamatine) 10 mg PO MWF [facility] Last Admin: 04/11/18 09:26 Dose: 10 mg Pantoprazole Sodium (Protonix Ec Tab) 40 mg PO 0600,1600 [facility] Last Admin: 04/11/18 05:07 Dose: 40 mg Sevelamer HCl (Renagel) 800 mg PO TID [facility] Last Admin: 04/11/18 09:26 Dose: 800 mg Trazodone HCl (Desyrel) 100 mg PO HS [facility] Last Admin: 04/10/18 21:56 Dose: 100 mg Vitamin B Complex/Vit C/Folic Acid (Nephro-Bhupinder) 1 tab PO 0800 [facility] Last Admin: 04/11/18 08:03 Dose: 1 tab - Labs Labs: 04/10/18 08:00 04/10/18 08:00 PT 13.2 SECONDS (9.4-12.5) H 04/03/18 15:44 INR 1.15 04/03/18 15:44 APTT 30.7 Seconds (25.1-36.5) 04/03/18 15:44 Attending/Attestation - Attestation I have personally seen and examined this patient.: Yes I have fully participated in the care of the patient.: Yes I have reviewed all pertinent clinical information, including history, physical exam and plan: Yes
[2018-04-10] MEDS: Albuterol-Ipratrop 3 mg / 0.5 (3 ml) UD IH PRN (23:56)
[2018-04-11] MEDS: Albuterol-Ipratrop 3 mg / 0.5 (3 ml) UD IH SCH ×4 (01:00→19:20)
[2018-04-11] MEDS: Pantoprazole 40 mg EC Tab PO SCH ×3 (05:07→22:31)
[2018-04-11] MEDS: Multivitamin Vitamin B Complex (Nephro-Vite) Tab PO SCH (08:03)
--- NOTE | 2018-04-11 11:36 | CP.PCM.PN ---
<Rosie Mcgovern - Last Filed: 04/11/18 11:33> Subjective - Date & Time of Evaluation Date of Evaluation: 04/11/18 Time of Evaluation: 11:33 - Subjective Subjective: Podiatry Progress Note for Dr. Rice: 52F patient seen and evaluated at [facility] for b/l edema and L heel ulceration. She states that the draining has decreased. She denies any new pedal complaints at this time. Denies N/V/F/SOB/CP. Objective - Vital Signs/Intake and Output Vital Signs (last 24 hours): Temp Pulse Resp BP Pulse Ox 98.4 F 85 21 106/43 L 96 04/11/18 06:00 04/11/18 10:00 04/11/18 06:00 04/11/18 06:00 04/11/18 06:00 Intake and Output: 04/11/18 04/11/18 06:59 18:59 Intake Total 2040 200 Output Total 2 2502 Balance 2038 -2302 - Medications Medications: Current Medications Albuterol/Ipratropium (Duoneb 3 Mg/0.5 Mg (3 Ml) Ud) 3 ml IH [id number] [facility] Last Admin: 04/11/18 07:54 Dose: Not Given Albuterol/Ipratropium (Duoneb 3 Mg/0.5 Mg (3 Ml) Ud) 3 ml IH Q2H PRN PRN Reason: Shortness of Breath Last Admin: 04/10/18 23:56 Dose: 3 ml Alprazolam (Xanax) 0.25 mg PO TID PRN; Protocol PRN Reason: anxiety/restlessness Stop: 04/11/18 18:01 Last Admin: 04/10/18 23:42 Dose: 0.25 mg Darbepoetin Fletcher (Aranesp) 100 mcg IVP QWK [facility] Last Admin: 04/09/18 09:04 Dose: 100 mcg Ergocalciferol (Drisdol 50,000 Intl Units Cap) 1 cap PO Q7D [facility] Last Admin: 04/08/18 08:12 Dose: 1 cap Iron Sucrose 100 mg/ Sodium (Chloride) 105 mls @ 210 mls/hr IVPB DAILY [facility] Stop: 04/15/18 10:01 Last Admin: 04/10/18 10:13 Dose: 210 mls/hr Midodrine (Proamatine) 10 mg PO MWF [facility] Last Admin: 04/11/18 09:26 Dose: 10 mg Pantoprazole Sodium (Protonix Ec Tab) 40 mg PO 0600,1600 [facility] Last Admin: 04/11/18 05:07 Dose: 40 mg Sevelamer HCl (Renagel) 800 mg PO TID [facility] Last Admin: 04/11/18 09:26 Dose: 800 mg Trazodone HCl (Desyrel) 100 mg PO HS [facility] Last Admin: 04/10/18 21:56 Dose: 100 mg Vitamin B Complex/Vit C/Folic Acid (Nephro-Bhupinder) 1 tab PO 0800 [facility] Last Admin: 04/11/18 08:03 Dose: 1 tab - Labs Labs: 04/10/18 08:00 04/10/18 08:00 PT 13.2 SECONDS (9.4-12.5) H 04/03/18 15:44 INR 1.15 04/03/18 15:44 APTT 30.7 Seconds (25.1-36.5) 04/03/18 15:44 - Constitutional Appears: Non-toxic, No Acute Distress - Head Exam Head Exam: ATRAUMATIC, NORMOCEPHALIC - Extremities Exam Additional comments: B/L lower extremity exam: Vascular: DP/PT non palpable secondary to edema, CFT < 3 seconds, TG warm to warm, no pedal hair present, +2 pitting edema to bilateral lower extremities beginning at the tibial tuberosity and extending distally to the digits Ortho: Tenderness to palpation of b/l lower extremities, MMT 4/5 Neuro: Gross sensation intact, protective sensation diminished Derm: Friable skin noted to posterior aspect of b/l legs, no purulence, no tunneling, no tracking, no probe to bone. Mild erythema appreciated to bilateral LE, no streaking appreciated- healing of the superficial ulcerations noted Superficial ulceration noted at the plantar aspect of the left heel measuring approximately 1.5 cm x 2.0 cm x .1 cm, with granular base - Neurological Exam Neurological Exam: Alert, Awake, Oriented x3 Assessment and Plan - Assessment and Plan (Free Text) Assessment: 52F patient seen and evaluated for b/l edema with left heel ulcer Plan: Patient seen and evaluated with all questions and concerns addressed Chart, vitals, labs reviewed; afebrile, absent leukocytosis B/L LE US; no evidence of DVT to bilateral lower extremities B/l LE arterial US ordered: Right SFA occlusive disease Wound culture take from L heel; e cloacae, e faecalis - heavy growth Local wound care: L lower extremity ulceration dressed with optifoam Patient informed to keep her legs elevated at all times to help control the swelling ID on board; appreciate recs Will continue to follow the patient while in house, stable for discharge from podiatry point of view <Darline Rice - Last Filed: 04/15/18 18:08> Objective - Vital Signs/Intake and Output Vital Signs (last 24 hours): Temp Pulse Resp BP Pulse Ox 98.6 F 80 20 107/54 L 95 04/15/18 14:00 04/15/18 14:00 04/15/18 14:00 04/15/18 14:00 04/15/18 14:00 Intake and Output: 04/15/18 04/15/18 06:59 18:59 Intake Total 180 Balance 180 - Medications Medications: Current Medications Acetaminophen (Tylenol 325mg Tab) 650 mg PO Q6 PRN PRN Reason: Fever >100.4 F Last Admin: 04/13/18 05:56 Dose: 650 mg Albuterol/Ipratropium (Duoneb 3 Mg/0.5 Mg (3 Ml) Ud) 3 ml IH [id number] [facility] Last Admin: 04/15/18 13:27 Dose: 3 ml Albuterol/Ipratropium (Duoneb 3 Mg/0.5 Mg (3 Ml) Ud) 3 ml IH Q2H PRN PRN Reason: Shortness of Breath Last Admin: 04/10/18 23:56 Dose: 3 ml Alprazolam (Xanax) 0.25 mg PO TID PRN; Protocol PRN Reason: Anxiety Last Admin: 04/12/18 22:31 Dose: 0.25 mg Darbepoetin Fletcher (Aranesp) 150 mcg IVP QWK [facility] Last Admin: 04/14/18 11:54 Dose: 150 mcg Ergocalciferol (Drisdol 50,000 Intl Units Cap) 1 cap PO Q7D [facility] Last Admin: 04/15/18 14:05 Dose: 1 cap Ferrous Sulfate (Feosol) 324 mg PO WM [facility] Heparin Sodium (Porcine) (Heparin) 5,000 units SC Q8 [facility]; Protocol Last Admin: 04/15/18 14:05 Dose: 5,000 units Cefepime HCl (Maxipime 2gm) 2 gm in 100 mls @ 100 mls/hr IVPB DAILY [facility]; Rosendo col Stop: 04/18/18 09:01 Last Admin: 04/15/18 10:04 Dose: 100 mls/hr Midodrine (Proamatine) 10 mg PO MWF [facility] Last Admin: 04/13/18 10:00 Dose: Not Given Nystatin (Nystop Topical Powder) 0 gm TOP BID [facility] Last Admin: 04/15/18 10:02 Dose: 1 appl Oseltamivir Phosphate (Tamiflu Cap) 30 mg PO DAILY [facility]; Protocol Last Admin: 04/15/18 10:01 Dose: 30 mg Pantoprazole Sodium (Protonix Ec Tab) 40 mg PO 0600,1600 [facility] Last Admin: 04/15/18 08:43 Dose: 40 mg Sevelamer HCl (Renagel) 800 mg PO TID [facility] Last Admin: 04/15/18 14:05 Dose: 800 mg Spironolactone (Aldactone) 50 mg PO DAILY [facility] Last Admin: 04/15/18 10:01 Dose: 50 mg Trazodone HCl (Desyrel) 100 mg PO HS [facility] Last Admin: 04/14/18 22:57 Dose: 100 mg Vitamin B Complex/Vit C/Folic Acid (Nephro-Bhupinder) 1 tab PO 0800 [facility] Last Admin: 04/15/18 10:01 Dose: 1 tab - Labs Labs: 04/14/18 06:00 04/14/18 06:00 PT 13.2 SECONDS (9.4-12.5) H 04/03/18 15:44 INR 1.15 04/03/18 15:44 APTT 30.7 Seconds (25.1-36.5) 04/03/18 15:44 Attending/Attestation - Attestation I have personally seen and examined this patient.: Yes I have fully participated in the care of the patient.: Yes I have reviewed all pertinent clinical information, including history, physical exam and plan: Yes
--- NOTE | 2018-04-11 11:58 | CP.PCM.PN ---
<Nhung Anne - Last Filed: 04/11/18 11:50> Subjective - Date & Time of Evaluation Date of Evaluation: 04/11/18 Time of Evaluation: 10:16 - Subjective Subjective: Nhung Anne PGY1 Hospital Progress Note Patient seen and examined at bedside this morning. No acute events reported overnight. Offers no complaints today. Plan for HD today. Objective - Vital Signs/Intake and Output Vital Signs (last 24 hours): Temp Pulse Resp BP Pulse Ox 98.4 F 85 21 106/43 L 96 04/11/18 06:00 04/11/18 10:00 04/11/18 06:00 04/11/18 06:00 04/11/18 06:00 Intake and Output: 04/11/18 04/11/18 06:59 18:59 Intake Total 2040 200 Output Total 2 2502 Balance 2038 -2302 - Medications Medications: Current Medications Albuterol/Ipratropium (Duoneb 3 Mg/0.5 Mg (3 Ml) Ud) 3 ml IH [id number] [facility] Last Admin: 04/11/18 07:54 Dose: Not Given Albuterol/Ipratropium (Duoneb 3 Mg/0.5 Mg (3 Ml) Ud) 3 ml IH Q2H PRN PRN Reason: Shortness of Breath Last Admin: 04/10/18 23:56 Dose: 3 ml Alprazolam (Xanax) 0.25 mg PO TID PRN; Protocol PRN Reason: anxiety/restlessness Stop: 04/11/18 18:01 Last Admin: 04/10/18 23:42 Dose: 0.25 mg Darbepoetin Fletcher (Aranesp) 100 mcg IVP QWK [facility] Last Admin: 04/09/18 09:04 Dose: 100 mcg Ergocalciferol (Drisdol 50,000 Intl Units Cap) 1 cap PO Q7D [facility] Last Admin: 04/08/18 08:12 Dose: 1 cap Iron Sucrose 100 mg/ Sodium (Chloride) 105 mls @ 210 mls/hr IVPB DAILY [facility] Stop: 04/15/18 10:01 Last Admin: 04/10/18 10:13 Dose: 210 mls/hr Midodrine (Proamatine) 10 mg PO MWF [facility] Last Admin: 04/11/18 09:26 Dose: 10 mg Pantoprazole Sodium (Protonix Ec Tab) 40 mg PO 0600,1600 [facility] Last Admin: 04/11/18 05:07 Dose: 40 mg Sevelamer HCl (Renagel) 800 mg PO TID [facility] Last Admin: 04/11/18 09:26 Dose: 800 mg Trazodone HCl (Desyrel) 100 mg PO HS [facility] Last Admin: 04/10/18 21:56 Dose: 100 mg Vitamin B Complex/Vit C/Folic Acid (Nephro-Bhupinder) 1 tab PO 0800 [facility] Last Admin: 04/11/18 08:03 Dose: 1 tab - Labs Labs: 04/10/18 08:00 04/10/18 08:00 PT 13.2 SECONDS (9.4-12.5) H 04/03/18 15:44 INR 1.15 04/03/18 15:44 APTT 30.7 Seconds (25.1-36.5) 04/03/18 15:44 - Additional Findings Additional findings: - Constitutional Appears: No Acute Distress - Head Exam Head Exam: NORMAL INSPECTION, ATRAUMATIC - Eye Exam Eye Exam: EOMI, PERRL - ENT Exam ENT Exam: Mucous Membranes Moist, Normal Exam - Neck Exam Neck exam: Positive for: Normal Inspection - Respiratory Exam Respiratory Exam: Clear to Auscultation Bilateral. absent: Rales, Rhonchi, Wheezes, respiratory distress - Cardiovascular Exam Cardiovascular Exam: Regular rhythm, +S1, +S2. absent: Systolic Murmur - GI/Abdominal Exam GI & Abdominal Exam: Soft. Bowel sounds heard in all 4 quadrants absent: Distended, Guarding, Rebound, Tenderness - Extremities Exam Extremities exam: Positive for: pedal edema Additional comments: 2+ edema diffuse noted on both legs -no draining/weeping noted on lower extremities - Neurological Exam Neurological exam: Alert, CN II-XII Intact, Oriented x3 - Skin Skin Exam: Dry, Intact and Pallor Assessment and Plan - Assessment and Plan (Free Text) Assessment: Patient is a 52 yo F with past medical history liver failure, morbid obesity, and EtOH abuse presents to [facility] for worsening weakness and admitted for management of anemia and FELIPE with metabolic acidosis. Focusing on outpatient HD and PT. Plan: Acute renal failure - improved -BUN/Cr is improving Cr is 4.5 today from 5.5 yesterday -plan for HD today, on MWF schedule -s/p 4th HD on 04/09/18 2.7 L removed -continuing to work with dependency case manager for outpatient HD setup -Renal US is unremarkable -Renagel 800 mg PO TID -Strict I's and O's -Nephrology on consult, Dr. Salmeron B/L leg swelling - improved -podiatry on consult, no further recommendations, local wound care for now - not currently draining/weeping -repeat ext US shows possible right SFA occlusive disease, limited study due to artifact -wound culture grew Enterobacter Cloacae, E. faecalis -no antibx for now as per ID -PT eval for d/c planning, recommend JENNA. Patient not able to get out of bed with PT Microcytic anemia -s/p total 11 units pRBCs, 2 FFPs -endoscopy showed 3 non bleeding gastric ulcers, largest one 8mm -iron studies shows likely iron deficiency -Venofer 100 mg IV daily -Head CT unremarkable -CTAP shows adenopathy of the hepatic gastric ligament -GI on consult, Dr. Melo Elevated BNP -BNP 64219 on admission -Echo showed EF of 68%, mild TR/MR, mild pulm HTN, borderline LVH Depression -Psych on consult, Dr. Ramos -continue trazodone PPX/Diet -protonix (deferring heparin and SCD's at this time in light of recent UGIB and B/L swelling/wound care) -renal diet Patient seen and case discussed with attending, Dr. Ojeda <Sagrario Ojeda - Last Filed: 04/13/18 15:10> Objective - Vital Signs/Intake and Output Vital Signs (last 24 hours): Temp Pulse Resp BP Pulse Ox 98.9 F 78 20 141/61 96 04/13/18 14:00 04/13/18 14:00 04/13/18 14:00 04/13/18 14:00 04/13/18 14:00 Intake and Output: 04/13/18 04/13/18 06:59 18:59 Intake Total 540 Balance 540 - Medications Medications: Current Medications Acetaminophen (Tylenol 325mg Tab) 650 mg PO Q6 PRN PRN Reason: Fever >100.4 F Last Admin: 04/13/18 05:56 Dose: 650 mg Albuterol/Ipratropium (Duoneb 3 Mg/0.5 Mg (3 Ml) Ud) 3 ml IH [id number] [facility] Last Admin: 04/13/18 13:42 Dose: 3 ml Albuterol/Ipratropium (Duoneb 3 Mg/0.5 Mg (3 Ml) Ud) 3 ml IH Q2H PRN PRN Reason: Shortness of Breath Last Admin: 04/10/18 23:56 Dose: 3 ml Alprazolam (Xanax) 0.25 mg PO TID PRN; Protocol PRN Reason: Anxiety Last Admin: 04/12/18 22:31 Dose: 0.25 mg Darbepoetin Fletcher (Aranesp) 150 mcg IVP QWK [facility] Ergocalciferol (Drisdol 50,000 Intl Units Cap) 1 cap PO Q7D [facility] Last Admin: 04/08/18 08:12 Dose: 1 cap Heparin Sodium (Porcine) (Heparin) 5,000 units SC Q8 [facility]; Protocol Last Admin: 04/13/18 13:24 Dose: 5,000 units Iron Sucrose 100 mg/ Sodium (Chloride) 105 mls @ 210 mls/hr IVPB DAILY [facility] Stop: 04/15/18 10:01 Last Admin: 04/13/18 14:45 Dose: 210 mls/hr Cefepime HCl (Maxipime 2gm) 2 gm in 100 mls @ 100 mls/hr IVPB DAILY [facility]; Protocol Stop: 04/18/18 09:01 Last Admin: 04/13/18 13:27 Dose: 100 mls/hr Midodrine (Proamatine) 10 mg PO MWF [facility] Last Admin: 04/13/18 10:00 Dose: Not Given Pantoprazole Sodium (Protonix Ec Tab) 40 mg PO 0600,1600 [facility] Last Admin: 04/13/18 05:56 Dose: 40 mg Sevelamer HCl (Renagel) 800 mg PO TID [facility] Last Admin: 04/13/18 13:25 Dose: 800 mg Spironolactone (Aldactone) 50 mg PO DAILY [facility] Last Admin: 04/13/18 13:38 Dose: 50 mg Trazodone HCl (Desyrel) 100 mg PO HS [facility] Last Admin: 04/13/18 02:31 Dose: 100 mg Vitamin B Complex/Vit C/Folic Acid (Nephro-Bhupinder) 1 tab PO 0800 [facility] Last Admin: 04/13/18 08:26 Dose: 1 tab - Labs Labs: 04/13/18 09:15 04/13/18 09:15 PT 13.2 SECONDS (9.4-12.5) H 04/03/18 15:44 INR 1.15 04/03/18 15:44 APTT 30.7 Seconds (25.1-36.5) 04/03/18 15:44 Attending/Attestation - Attestation I have personally seen and examined this patient.: Yes I have fully participated in the care of the patient.: Yes I have reviewed all pertinent clinical information, including history, physical exam and plan: Yes Notes (Text): 04/13/18 15:10 Medical record note made by the resident after discussion with my direction and input after the patient was personally seen and examined by me. I have reviewed the chart and agree that the record accurately reflects by personal performance of the history, physical exam, data review, and medical decision-making, in the course for the patient. I have also personally directed the plan of care.
--- NOTE | 2018-04-11 12:20 | CP.PCM.PN ---
Subjective - Date & Time of Evaluation Date of Evaluation: 04/11/18 Time of Evaluation: 10:10 - Subjective Subjective: Comfortable in bed, no fevers. Objective - Vital Signs/Intake and Output Vital Signs (last 24 hours): Temp Pulse Resp BP Pulse Ox 98.4 F 85 21 106/43 L 96 04/11/18 06:00 04/11/18 10:00 04/11/18 06:00 04/11/18 06:00 04/11/18 06:00 Intake and Output: 04/11/18 04/11/18 06:59 18:59 Intake Total 2040 200 Output Total 2 2502 Balance 8 -230 - Medications Medications: Current Medications Albuterol/Ipratropium (Duoneb 3 Mg/0.5 Mg (3 Ml) Ud) 3 ml IH [id number] [facility] Last Admin: 04/11/18 07:54 Dose: Not Given Albuterol/Ipratropium (Duoneb 3 Mg/0.5 Mg (3 Ml) Ud) 3 ml IH Q2H PRN PRN Reason: Shortness of Breath Last Admin: 04/10/18 23:56 Dose: 3 ml Alprazolam (Xanax) 0.25 mg PO TID PRN; Protocol PRN Reason: anxiety/restlessness Stop: 04/11/18 18:01 Last Admin: 04/10/18 23:42 Dose: 0.25 mg Darbepoetin Fletcher (Aranesp) 100 mcg IVP QWK [facility] Last Admin: 04/09/18 09:04 Dose: 100 mcg Ergocalciferol (Drisdol 50,000 Intl Units Cap) 1 cap PO Q7D [facility] Last Admin: 04/08/18 08:12 Dose: 1 cap Iron Sucrose 100 mg/ Sodium (Chloride) 105 mls @ 210 mls/hr IVPB DAILY [facility] Stop: 04/15/18 10:01 Last Admin: 04/11/18 11:53 Dose: 210 mls/hr Midodrine (Proamatine) 10 mg PO MWF [facility] Last Admin: 04/11/18 09:26 Dose: 10 mg Pantoprazole Sodium (Protonix Ec Tab) 40 mg PO 0600,1600 [facility] Last Admin: 04/11/18 05:07 Dose: 40 mg Sevelamer HCl (Renagel) 800 mg PO TID [facility] Last Admin: 04/11/18 09:26 Dose: 800 mg Trazodone HCl (Desyrel) 100 mg PO HS [facility] Last Admin: 04/10/18 21:56 Dose: 100 mg Vitamin B Complex/Vit C/Folic Acid (Nephro-Bhupinder) 1 tab PO 0800 [facility] Last Admin: 04/11/18 08:03 Dose: 1 tab - Labs Labs: 04/10/18 08:00 04/10/18 08:00 PT 13.2 SECONDS (9.4-12.5) H 04/03/18 15:44 INR 1.15 04/03/18 15:44 APTT 30.7 Seconds (25.1-36.5) 04/03/18 15:44 - Constitutional Appears: Chronically Ill - Head Exam Head Exam: NORMAL INSPECTION - Respiratory Exam Respiratory Exam: Decreased Breath Sounds - Cardiovascular Exam Cardiovascular Exam: +S1, +S2 - GI/Abdominal Exam GI & Abdominal Exam: Soft. absent: Tenderness Assessment and Plan - Assessment and Plan (Free Text) Plan: Assessment chronic lymphedema of lower extremities without evidence of cellulitis morbid obesity with BMI 52 chronic renal failure R/O peripheral vascular disease Plan continue to monitor off antibiotics; cultures taken from the lower extremities are superficial swabs, therefore bacteria are colonizers
[2018-04-11 13:03] LABS: BASO # 0.02 K/mm3 (0.0-2.0); BASO % 0.2 % (0.0-3.0); EOS # 0.5 (0.0-0.7); EOS % 6.2 % (1.5-5.0); GRAN # 6.59 (1.4-6.5); GRAN % 76.7 % (50.0-68.0); HEMOGLOBIN 8.6 g/dL (12.0-16.0); LYMPH # 0.6 (1.2-3.4); LYMPH % 7.2 % (22.0-35.0); MEAN CORPUSCULAR HEMOGLOBIN 27.9 pg (25.0-35.0); MEAN CORPUSCULAR HGB CONC 31.7 g/dl (31.0-37.0); MEAN PLATELET VOLUME 8.4 fl (7.0-11.0); MONO # 0.8 (0.1-0.6); MONO % 9.7 % (1.0-6.0); RBC 3.08 10^6/uL (3.5-6.1); RED CELL DISTRIBUTION WIDTH 21.3 % (11.5-14.5); WHITE BLOOD COUNT 8.6 10^3/uL (4.5-11.0)
[2018-04-11 13:12] LABS: ALB/GLOB RATIO 0.6 (1.1-1.8); ALBUMIN 2.1 g/dL (3.0-4.8); CALCIUM 7.6 mg/dL (8.4-10.5)
--- NOTE | 2018-04-11 15:50 | CP.PCM.PN ---
Subjective - Date & Time of Evaluation Date of Evaluation: 04/11/18 Time of Evaluation: 15:49 - Subjective Subjective: Nephrology Consultation Note: Assessment: stable oligoanuric Acute Kidney Injury (N17.9) likely due to ATN, pre-renal state, intrasvasc hypovolemia, impaired renal perfusion, HD 04/05/18: first session anasarca severe symptomatic anemia due to GI bleed with gastric ulcers mild hyperkalemia and HAGMA, hyperphos hx of cirrhosis and etoh intra-ab lymphadenopathy morbid obesity Plan HD tolerated well so far, on MWF schedule Maintain hemodynamics stable. Avoid hypotension. Patient not on ACEI/ARB due to recent FELIPE. added midodrine pre HD Monitor Input/Output, daily weights and renal function with basic metabolic panel added phos binders PRBC as needed. started IV iron. on weekly aranesp GI consult pt on PPI work up for FELIPE and anemia as ordered. GN work up neg hence will defer kidney biopsy. also pt with liver disease and morbidly obese. started weekly vit d Dose meds/antibiotics for reduced GFR. Avoid fleets enema/magnesium based laxatives. Avoid nephrotoxins/NSAIDs/ iodinated contrast (unless needed emergently) Glycemic control Further work up/management as per primary team SW for outpt hd placement. can f/up as outpt for renal recovery. stable for d/c from renal perspective once arranged for outpt HD. Thanks for allowing me to participate in care of your patient. Will follow patient with you. Please call if any Qs. had d/w team Dr Kenji Salmeron Office: [phone] Chief Complaint; fatigue Reason for consult: Acute Kidney Injury HPI: Pt is a 52 F with hx of alcoholism in past, cirrhosis (pt states got better on its own in past) but no regular follow up with PMD presented with complaints of fatigue and tiredness for last few days, found to have severe anemia and FELIPE Denies OTC/herbal meds but NSAIDs as alleve for last few days No recent iodinated contrast exposure. Noted obvious episodes of low BP. reports chronic leg swelling but more now denies smoking or etoh now ROS: c/o swelling in leg. had gastric ulcers on EGD Cardiovascular: No chest pain. Pulmonary: No shortness of breath Gastrointestinal: denies abdominal pain No nausea. No vomiting. Genitourinary: No pain while urinating. Denies blood in urine. All other negative except as mentioned in HPI Physical Examination: seen on HD General Appearance: Comfortable, in no acute respiratory distress, co-operative . morbid obese Vitals reviewed and noted as below Head; Atraumatic, normocephalic ENT: no ulcers no thrush. Tongue is midline. Oropharynx: no rash or ulcers. EYES: Pupils are equal, round and reactive to light accommodation. Eye muscles and extraocular movement intact. Sclera is anicteric. Neck; supple no lymphadenopathy, no thyromegaly or bruit Lungs: Normal respiratory rate/effort. Breath sounds bilateral reduced at bases Heart: Normal rate. s1s2 normal. No rub or gallop. Extremities: 3+ edema. Neurological: Patient is alert, awake and oriented to person, place and time. No focal deficit. Strength bilateral appropriate and equal Skin: Warm and dry. Normal turgor. spider angioma rash upper chest. Palpitation: Normal elasticity for age Abdomen: Abdomen is soft. Bowel sounds +. There is no abdominal tenderness, no guarding/rigidity no organomegaly. limited due to obesity and abd wall edema Psych: normal insight and normal affect/mood MSK: no joint tenderness or swelling. Digits and nails normal, no deformity : kidney or bladder not palpable. has access as permacath Labs/imaging reviewed. Past medical history, past surgical history, family history, social history, allergy reviewed and noted as below Family hx: no hx of CKD. Rest non-contributory fena 0.3% intra-ab lymphadenopathy Objective - Vital Signs/Intake and Output Vital Signs (last 24 hours): Temp Pulse Resp BP Pulse Ox 98.1 F 84 18 112/50 L 96 04/11/18 12:00 04/11/18 12:00 04/11/18 12:00 04/11/18 12:00 04/11/18 06:00 Intake and Output: 04/11/18 04/11/18 06:59 18:59 Intake Total 2040 200 Output Total 2 2502 Balance 2037 -230 - Medications Medications: Current Medications Albuterol/Ipratropium (Duoneb 3 Mg/0.5 Mg (3 Ml) Ud) 3 ml IH [id number] [facility] Last Admin: 04/11/18 13:04 Dose: 3 ml Albuterol/Ipratropium (Duoneb 3 Mg/0.5 Mg (3 Ml) Ud) 3 ml IH Q2H PRN PRN Reason: Shortness of Breath Last Admin: 04/10/18 23:56 Dose: 3 ml Alprazolam (Xanax) 0.25 mg PO TID PRN; Protocol PRN Reason: anxiety/restlessness Stop: 04/11/18 18:01 Last Admin: 04/10/18 23:42 Dose: 0.25 mg Darbepoetin Fletcher (Aranesp) 100 mcg IVP QWK [facility] Last Admin: 04/09/18 09:04 Dose: 100 mcg Ergocalciferol (Drisdol 50,000 Intl Units Cap) 1 cap PO Q7D [facility] Last Admin: 04/08/18 08:12 Dose: 1 cap Iron Sucrose 100 mg/ Sodium (Chloride) 105 mls @ 210 mls/hr IVPB DAILY [facility] Stop: 04/15/18 10:01 Last Admin: 04/11/18 11:53 Dose: 210 mls/hr Midodrine (Proamatine) 10 mg PO MWF [facility] Last Admin: 04/11/18 09:26 Dose: 10 mg Pantoprazole Sodium (Protonix Ec Tab) 40 mg PO 0600,1600 [facility] Last Admin: 04/11/18 05:07 Dose: 40 mg Sevelamer HCl (Renagel) 800 mg PO TID [facility] Last Admin: 04/11/18 14:41 Dose: Not Given Trazodone HCl (Desyrel) 100 mg PO HS [facility] Last Admin: 04/10/18 21:56 Dose: 100 mg Vitamin B Complex/Vit C/Folic Acid (Nephro-Bhupinder) 1 tab PO 0800 [facility] Last Admin: 04/11/18 08:03 Dose: 1 tab - Labs Labs: 04/11/18 12:50 04/11/18 12:50 PT 13.2 SECONDS (9.4-12.5) H 04/03/18 15:44 INR 1.15 04/03/18 15:44 APTT 30.7 Seconds (25.1-36.5) 04/03/18 15:44
[2018-04-12] MEDS: Albuterol-Ipratrop 3 mg / 0.5 (3 ml) UD IH SCH ×4 (01:13→20:22)
[2018-04-12] MEDS: Pantoprazole 40 mg EC Tab PO SCH ×2 (06:04→17:00)
[2018-04-12 07:19] LABS: ALB/GLOB RATIO 0.7 (1.1-1.8); ALBUMIN 2.1 g/dL (3.0-4.8); CALCIUM 7.5 mg/dL (8.4-10.5)
[2018-04-12 07:21] LABS: BASO # 0.01 K/mm3 (0.0-2.0); BASO % 0.1 % (0.0-3.0); EOS # 0.4 (0.0-0.7); EOS % 4.3 % (1.5-5.0); GRAN # 7.23 (1.4-6.5); GRAN % 84.3 % (50.0-68.0); HEMOGLOBIN 8.3 g/dL (12.0-16.0); LYMPH # 0.4 (1.2-3.4); LYMPH % 4.1 % (22.0-35.0); MEAN CELL VOLUME 88.9 fl (80.0-105.0); MEAN CORPUSCULAR HEMOGLOBIN 27.9 pg (25.0-35.0); MEAN CORPUSCULAR HGB CONC 31.3 g/dl (31.0-37.0); MONO # 0.6 (0.1-0.6); MONO % 7.2 % (1.0-6.0); PLATELET COUNT 107 10^3/uL (120.0-450.0); RBC 2.98 10^6/uL (3.5-6.1); RED CELL DISTRIBUTION WIDTH 21.5 % (11.5-14.5); WHITE BLOOD COUNT 8.6 10^3/uL (4.5-11.0)
[2018-04-12 08:01] LABS: EOSINOPHIL 4 % (0.0-3.0); LYMPHOCYTE 1 % (22.0-35.0); MONOCYTE 7 % (1.0-6.0); NEUTROPHIL 88 % (50.0-70.0)
[2018-04-12 08:02] LABS: ANISOCYTOSIS 1+; PLATELET ESTIMATE LOW (NORMAL)
--- NOTE | 2018-04-12 08:07 | CP.PCM.PN ---
<Rosie Mcgovern - Last Filed: 04/12/18 08:04> Subjective - Date & Time of Evaluation Date of Evaluation: 04/12/18 Time of Evaluation: 08:04 - Subjective Subjective: Podiatry Progress Note for Dr. Rice: 52F patient seen and evaluated at bedside for b/l edema and L heel ulceration. Patient denies any new weeping from b/l lower extremities. She denies any pain to b/l lower extremities. Denies N/V/F. Objective - Vital Signs/Intake and Output Vital Signs (last 24 hours): Temp Pulse Resp BP Pulse Ox 99.1 F 93 H 22 120/48 L 97 04/12/18 06:00 04/12/18 06:00 04/12/18 06:00 04/12/18 06:00 04/12/18 06:00 Intake and Output: 04/12/18 04/12/18 06:59 18:59 Intake Total 1140 Balance 1140 - Medications Medications: Current Medications Albuterol/Ipratropium (Duoneb 3 Mg/0.5 Mg (3 Ml) Ud) 3 ml IH [id number] [facility] Last Admin: 04/12/18 07:34 Dose: 3 ml Albuterol/Ipratropium (Duoneb 3 Mg/0.5 Mg (3 Ml) Ud) 3 ml IH Q2H PRN PRN Reason: Shortness of Breath Last Admin: 04/10/18 23:56 Dose: 3 ml Alprazolam (Xanax) 0.25 mg PO TID PRN; Protocol PRN Reason: Anxiety Last Admin: 04/12/18 04:36 Dose: 0.25 mg Darbepoetin Fletcher (Aranesp) 100 mcg IVP QWK [facility] Last Admin: 04/09/18 09:04 Dose: 100 mcg Ergocalciferol (Drisdol 50,000 Intl Units Cap) 1 cap PO Q7D [facility] Last Admin: 04/08/18 08:12 Dose: 1 cap Iron Sucrose 100 mg/ Sodium (Chloride) 105 mls @ 210 mls/hr IVPB DAILY [facility] Stop: 04/15/18 10:01 Last Admin: 04/11/18 11:53 Dose: 210 mls/hr Midodrine (Proamatine) 10 mg PO MWF [facility] Last Admin: 04/11/18 09:26 Dose: 10 mg Pantoprazole Sodium (Protonix Ec Tab) 40 mg PO 0600,1600 [facility] Last Admin: 04/12/18 06:04 Dose: 40 mg Sevelamer HCl (Renagel) 800 mg PO TID [facility] Last Admin: 04/11/18 22:31 Dose: 800 mg Trazodone HCl (Desyrel) 100 mg PO HS [facility] Last Admin: 04/11/18 22:31 Dose: 100 mg Vitamin B Complex/Vit C/Folic Acid (Nephro-Bhupinder) 1 tab PO 0800 [facility] Last Admin: 04/11/18 08:03 Dose: 1 tab - Labs Labs: 04/12/18 06:00 04/12/18 06:00 PT 13.2 SECONDS (9.4-12.5) H 04/03/18 15:44 INR 1.15 04/03/18 15:44 APTT 30.7 Seconds (25.1-36.5) 04/03/18 15:44 - Constitutional Appears: Well, Non-toxic, No Acute Distress - Head Exam Head Exam: ATRAUMATIC, NORMOCEPHALIC - Extremities Exam Additional comments: B/L lower extremity exam: Vascular: DP/PT non palpable secondary to edema, CFT < 3 seconds, TG warm to warm, no pedal hair present, +2 pitting edema to bilateral lower extremities beginning at the tibial tuberosity and extending distally to the digits Ortho: Tenderness to palpation of b/l lower extremities, MMT 4/5 Neuro: Gross sensation intact, protective sensation diminished Derm: Friable skin noted to posterior aspect of b/l legs, no purulence, no tunneling, no tracking, no probe to bone. Superficial ulceration noted at the plantar aspect of the left heel measuring approximately 1.5 cm x 1.0 cm x .1 cm, with granular base - Neurological Exam Neurological Exam: Alert, Awake, Oriented x3 - Psychiatric Exam Psychiatric exam: Normal Affect, Normal Mood Assessment and Plan - Assessment and Plan (Free Text) Assessment: 52F patient seen and evaluated for b/l edema with left heel ulcer Plan: Patient seen and evaluated with all questions and concerns addressed Chart, vitals, labs reviewed; afebrile, absent leukocytosis B/L LE US; no evidence of DVT to bilateral lower extremities B/l LE arterial US ordered: Right SFA occlusive disease Wound culture take from L heel; e cloacae, e faecalis - heavy growth Local wound care: L lower extremity ulceration dressed with optifoam Patient informed to keep her legs elevated at all times to help control the swelling ID on board; continue to monitor off antibiotics Will continue to follow the patient while in house, stable for discharge from p odiatry point of view <Darline Rice - Last Filed: 04/15/18 18:08> Objective - Vital Signs/Intake and Output Vital Signs (last 24 hours): Temp Pulse Resp BP Pulse Ox 98.6 F 80 20 107/54 L 95 04/15/18 14:00 04/15/18 14:00 04/15/18 14:00 04/15/18 14:00 04/15/18 14:00 Intake and Output: 04/15/18 04/15/18 06:59 18:59 Intake Total 180 Balance 180 - Medications Medications: Current Medications Acetaminophen (Tylenol 325mg Tab) 650 mg PO Q6 PRN PRN Reason: Fever >100.4 F Last Admin: 04/13/18 05:56 Dose: 650 mg Albuterol/Ipratropium (Duoneb 3 Mg/0.5 Mg (3 Ml) Ud) 3 ml IH [id number] [facility] Last Admin: 04/15/18 13:27 Dose: 3 ml Albuterol/Ipratropium (Duoneb 3 Mg/0.5 Mg (3 Ml) Ud) 3 ml IH Q2H PRN PRN Reason: Shortness of Breath Last Admin: 04/10/18 23:56 Dose: 3 ml Alprazolam (Xanax) 0.25 mg PO TID PRN; Protocol PRN Reason: Anxiety Last Admin: 04/12/18 22:31 Dose: 0.25 mg Darbepoetin Fletcher (Aranesp) 150 mcg IVP QWK [facility] Last Admin: 04/14/18 11:54 Dose: 150 mcg Ergocalciferol (Drisdol 50,000 Intl Units Cap) 1 cap PO Q7D [facility] Last Admin: 04/15/18 14:05 Dose: 1 cap Ferrous Sulfate (Feosol) 324 mg PO WM [facility] Heparin Sodium (Porcine) (Heparin) 5,000 units SC Q8 [facility]; Protocol Last Admin: 04/15/18 14:05 Dose: 5,000 units Cefepime HCl (Maxipime 2gm) 2 gm in 100 mls @ 100 mls/hr IVPB DAILY [facility]; Protocol Stop: 04/18/18 09:01 Last Admin: 04/15/18 10:04 Dose: 100 mls/hr Midodrine (Proamatine) 10 mg PO MWF [facility] Last Admin: 04/13/18 10:00 Dose: Not Given Nystatin (Nystop Topical Powder) 0 gm TOP BID [facility] Last Admin: 04/15/18 10:02 Dose: 1 appl Oseltamivir Phosphate (Tamiflu Cap) 30 mg PO DAILY [facility]; Protocol Last Admin: 04/15/18 10:01 Dose: 30 mg Pantoprazole Sodium (Protonix Ec Tab) 40 mg PO 0600,1600 [facility] Last Admin: 04/15/18 08:43 Dose: 40 mg Sevelamer HCl (Renagel) 800 mg PO TID [facility] Last Admin: 04/15/18 14:05 Dose: 800 mg Spironolactone (Aldactone) 50 mg PO DAILY [facility] Last Admin: 04/15/18 10:01 Dose: 50 mg Trazodone HCl (Desyrel) 100 mg PO HS [facility] Last Admin: 04/14/18 22:57 Dose: 100 mg Vitamin B Complex/Vit C/Folic Acid (Nephro-Bhupinder) 1 tab PO 0800 [facility] Last Admin: 04/15/18 10:01 Dose: 1 tab - Labs Labs: 04/14/18 06:00 04/14/18 06:00 PT 13.2 SECONDS (9.4-12.5) H 04/03/18 15:44 INR 1.15 04/03/18 15:44 APTT 30.7 Seconds (25.1-36.5) 04/03/18 15:44 Attending/Attestation - Attestation I have personally seen and examined this patient.: Yes I have fully participated in the care of the patient.: Yes I have reviewed all pertinent clinical information, including history, physical exam and plan: Yes
[2018-04-12] MEDS: Multivitamin Vitamin B Complex (Nephro-Vite) Tab PO SCH (08:45)
--- NOTE | 2018-04-12 10:57 | RAD ---
Date of service: 04/12/2018 HISTORY: cough COMPARISON: 04/04/2018 FINDINGS: LUNGS: No active pulmonary disease. PLEURA: No significant pleural effusion identified, no pneumothorax apparent. CARDIOVASCULAR: No aortic atherosclerotic calcification present. Moderate cardiomegaly moderate vascular congestion OSSEOUS STRUCTURES: No significant abnormalities. VISUALIZED UPPER ABDOMEN: Normal. OTHER FINDINGS: Right-sided dialysis catheter IMPRESSION: Moderate cardiomegaly and moderate vascular congestion
--- NOTE | 2018-04-12 12:26 | CP.PCM.PN ---
Subjective - Date & Time of Evaluation Date of Evaluation: 04/12/18 Time of Evaluation: 10:45 - Subjective Subjective: Comfortable, afebrile. Objective - Vital Signs/Intake and Output Vital Signs (last 24 hours): Temp Pulse Resp BP Pulse Ox 98.4 F 85 21 106/43 L 96 04/11/18 06:00 04/11/18 10:00 04/11/18 06:00 04/11/18 06:00 04/11/18 06:00 Intake and Output: 04/11/18 04/11/18 06:59 18:59 Intake Total 2040 200 Output Total 2 2502 Balance 8 -2302 - Medications Medications: Current Medications Albuterol/Ipratropium (Duoneb 3 Mg/0.5 Mg (3 Ml) Ud) 3 ml IH [id number] [facility] Last Admin: 04/11/18 07:54 Dose: Not Given Albuterol/Ipratropium (Duoneb 3 Mg/0.5 Mg (3 Ml) Ud) 3 ml IH Q2H PRN PRN Reason: Shortness of Breath Last Admin: 04/10/18 23:56 Dose: 3 ml Alprazolam (Xanax) 0.25 mg PO TID PRN; Protocol PRN Reason: anxiety/restlessness Stop: 04/11/18 18:01 Last Admin: 04/10/18 23:42 Dose: 0.25 mg Darbepoetin Fletcher (Aranesp) 100 mcg IVP QWK [facility] Last Admin: 04/09/18 09:04 Dose: 100 mcg Ergocalciferol (Drisdol 50,000 Intl Units Cap) 1 cap PO Q7D [facility] Last Admin: 04/08/18 08:12 Dose: 1 cap Iron Sucrose 100 mg/ Sodium (Chloride) 105 mls @ 210 mls/hr IVPB DAILY [facility] Stop: 04/15/18 10:01 Last Admin: 04/11/18 11:53 Dose: 210 mls/hr Midodrine (Proamatine) 10 mg PO MWF [facility] Last Admin: 04/11/18 09:26 Dose: 10 mg Pantoprazole Sodium (Protonix Ec Tab) 40 mg PO 0600,1600 [facility] Last Admin: 04/11/18 05:07 Dose: 40 mg Sevelamer HCl (Renagel) 800 mg PO TID [facility] Last Admin: 04/11/18 09:26 Dose: 800 mg Trazodone HCl (Desyrel) 100 mg PO HS [facility] Last Admin: 04/10/18 21:56 Dose: 100 mg Vitamin B Complex/Vit C/Folic Acid (Nephro-Bhupinder) 1 tab PO 0800 [facility] Last Admin: 04/11/18 08:03 Dose: 1 tab - Labs Labs: 04/10/18 08:00 04/10/18 08:00 PT 13.2 SECONDS (9.4-12.5) H 04/03/18 15:44 INR 1.15 04/03/18 15:44 APTT 30.7 Seconds (25.1-36.5) 04/03/18 15:44 - Constitutional Appears: Chronically Ill - Head Exam Head Exam: NORMAL INSPECTION - Respiratory Exam Respiratory Exam: Decreased Breath Sounds - Cardiovascular Exam Cardiovascular Exam: +S1, +S2 - GI/Abdominal Exam GI & Abdominal Exam: Soft. absent: Tenderness Assessment and Plan - Assessment and Plan (Free Text) Plan: Assessment chronic lymphedema of lower extremities without evidence of cellulitis morbid obesity with BMI 52 chronic renal failure R/O peripheral vascular disease Plan continue to monitor off antibiotics; cultures taken from the lower extremities are superficial swabs, therefore bacteria are colonizers
--- NOTE | 2018-04-12 13:04 | CP.PCM.PN ---
<Nhung Anne - Last Filed: 04/12/18 13:00> Subjective - Date & Time of Evaluation Date of Evaluation: 04/12/18 Time of Evaluation: 10:42 - Subjective Subjective: Nhung Anne PGY1 Hospital Progress Note Patient seen and examined at bedside this morning. No acute events reported overnight. S/p HD yesterday. Offers no complaints today. Objective - Vital Signs/Intake and Output Vital Signs (last 24 hours): Temp Pulse Resp BP Pulse Ox 99.1 F 93 H 22 120/48 L 97 04/12/18 06:00 04/12/18 06:00 04/12/18 06:00 04/12/18 06:00 04/12/18 06:00 Intake and Output: 04/12/18 04/12/18 06:59 18:59 Intake Total 1140 Balance 1140 - Medications Medications: Current Medications Albuterol/Ipratropium (Duoneb 3 Mg/0.5 Mg (3 Ml) Ud) 3 ml IH [id number] [facility] Last Admin: 04/12/18 07:34 Dose: 3 ml Albuterol/Ipratropium (Duoneb 3 Mg/0.5 Mg (3 Ml) Ud) 3 ml IH Q2H PRN PRN Reason: Shortness of Breath Last Admin: 04/10/18 23:56 Dose: 3 ml Alprazolam (Xanax) 0.25 mg PO TID PRN; Protocol PRN Reason: Anxiety Last Admin: 04/12/18 12:50 Dose: 0.25 mg Darbepoetin Fletcher (Aranesp) 150 mcg IVP QWK [facility] Ergocalciferol (Drisdol 50,000 Intl Units Cap) 1 cap PO Q7D [facility] Last Admin: 04/08/18 08:12 Dose: 1 cap Heparin Sodium (Porcine) (Heparin) 5,000 units SC Q8 [facility]; Protocol Iron Sucrose 100 mg/ Sodium (Chloride) 105 mls @ 210 mls/hr IVPB DAILY [facility] Stop: 04/15/18 10:01 Last Admin: 04/12/18 09:52 Dose: 210 mls/hr Midodrine (Proamatine) 10 mg PO MWF [facility] Last Admin: 04/11/18 09:26 Dose: 10 mg Pantoprazole Sodium (Protonix Ec Tab) 40 mg PO 0600,1600 [facility] Last Admin: 04/12/18 06:04 Dose: 40 mg Sevelamer HCl (Renagel) 800 mg PO TID [facility] Last Admin: 04/12/18 09:35 Dose: 800 mg Spironolactone (Aldactone) 50 mg PO DAILY [facility] Last Admin: 04/12/18 12:48 Dose: 50 mg Trazodone HCl (Desyrel) 100 mg PO HS [facility] Last Admin: 04/11/18 22:31 Dose: 100 mg Vitamin B Complex/Vit C/Folic Acid (Nephro-Bhupinder) 1 tab PO 0800 [facility] Last Admin: 04/12/18 08:45 Dose: 1 tab - Labs Labs: 04/12/18 06:00 04/12/18 06:00 PT 13.2 SECONDS (9.4-12.5) H 04/03/18 15:44 INR 1.15 04/03/18 15:44 APTT 30.7 Seconds (25.1-36.5) 04/03/18 15:44 - Additional Findings Additional findings: - Constitutional Appears: No Acute Distress - Head Exam Head Exam: NORMAL INSPECTION, ATRAUMATIC - Eye Exam Eye Exam: EOMI, PERRL - ENT Exam ENT Exam: Mucous Membranes Moist, Normal Exam - Neck Exam Neck exam: Positive for: Normal Inspection - Respiratory Exam Respiratory Exam: Clear to Auscultation Bilateral. absent: Rales, Rhonchi, Wheezes, respiratory distress - Cardiovascular Exam Cardiovascular Exam: Regular rhythm, +S1, +S2. absent: Systolic Murmur - GI/Abdominal Exam GI & Abdominal Exam: Soft. Bowel sounds heard in all 4 quadrants absent: Distended, Guarding, Rebound, Tenderness - Extremities Exam Extremities exam: Positive for: pedal edema Additional comments: 2+ edema diffuse noted on both legs -no draining/weeping/pus noted on lower extremities - Neurological Exam Neurological exam: Alert, CN II-XII Intact, Oriented x3 - Skin Skin Exam: Dry, Intact and Pallor Assessment and Plan - Assessment and Plan (Free Text) Assessment: Patient is a 52 yo F with past medical history liver failure, morbid obesity, and EtOH abuse presents to [facility] for worsening weakness and admitted for management of anemia and FELIPE with metabolic acidosis. Focusing on outpatient HD and PT at this time. Plan: Acute renal failure - improved -Improving Cr 3.7 today from 4.7 yesterday -plan for HD tomorrow, MWF schedule -Working with caser for outpatient HD setup -Renal US is unremarkable -Renagel 800 mg PO TID -Strict I's and O's -Nephrology on consult, Dr. Salmeron Chronic lymphedema of B/L legs -podiatry on consult, no further recommendations, local wound care for now - not currently draining/weeping -repeat ext US shows possible right SFA occlusive disease, limited study due to artifact -wound culture grew Enterobacter Cloacae, E. faecalis - superficial bacteria colonizers -no antibx for now as per ID -PT recommends JENNA -daily PT rehab Microcytic anemia -s/p total 11 units pRBCs, 2 FFPs -endoscopy showed 3 non bleeding gastric ulcers, largest one 8mm -iron studies shows likely iron deficiency -Venofer 100 mg IV daily. Will transition to oral iron in 3 days -Head CT unremarkable -CTAP shows adenopathy of the hepatic gastric ligament -GI on consult, Dr. Melo Elevated BNP -BNP 75073 on admission -Echo showed EF of 68%, mild TR/MR, mild pulm HTN, borderline LVH Depression -Psych on consult, Dr. Ramos -continue trazodone PPX/Diet -protonix, heparin -renal diet Patient seen and case discussed with attending, Dr. Ojeda <Sagrario Ojeda - Last Filed: 04/13/18 15:09> Objective - Vital Signs/Intake and Output Vital Signs (last 24 hours): Temp Pulse Resp BP Pulse Ox 98.9 F 78 20 141/61 96 04/13/18 14:00 04/13/18 14:00 04/13/18 14:00 04/13/18 14:00 04/13/18 14:00 Intake and Output: 04/13/18 04/13/18 06:59 18:59 Intake Total 540 Balance 540 - Medications Medications: Current Medications Acetaminophen (Tylenol 325mg Tab) 650 mg PO Q6 PRN PRN Reason: Fever >100.4 F Last Admin: 04/13/18 05:56 Dose: 650 mg Albuterol/Ipratropium (Duoneb 3 Mg/0.5 Mg (3 Ml) Ud) 3 ml IH [id number] [facility] Last Admin: 04/13/18 13:42 Dose: 3 ml Albuterol/Ipratropium (Duoneb 3 Mg/0.5 Mg (3 Ml) Ud) 3 ml IH Q2H PRN PRN Reason: Shortness of Breath Last Admin: 04/10/18 23:56 Dose: 3 ml Alprazolam (Xanax) 0.25 mg PO TID PRN; Protocol PRN Reason: Anxiety Last Admin: 04/12/18 22:31 Dose: 0.25 mg Darbepoetin Fletcher (Aranesp) 150 mcg IVP QWK [facility] Ergocalciferol (Drisdol 50,000 Intl Units Cap) 1 cap PO Q7D [facility] Last Admin: 04/08/18 08:12 Dose: 1 cap Heparin Sodium (Porcine) (Heparin) 5,000 units SC Q8 [facility]; Protocol Last Admin: 04/13/18 13:24 Dose: 5,000 units Iron Sucrose 100 mg/ Sodium (Chloride) 105 mls @ 210 mls/hr IVPB DAILY [facility] Stop: 04/15/18 10:01 Last Admin: 04/13/18 14:45 Dose: 210 mls/hr Cefepime HCl (Maxipime 2gm) 2 gm in 100 mls @ 100 mls/hr IVPB DAILY [facility]; Protocol Stop: 04/18/18 09:01 Last Admin: 04/13/18 13:27 Dose: 100 mls/hr Midodrine (Proamatine) 10 mg PO MWF [facility] Last Admin: 04/13/18 10:00 Dose: Not Given Pantoprazole Sodium (Protonix Ec Tab) 40 mg PO 0600,1600 [facility] Last Admin: 04/13/18 05:56 Dose: 40 mg Sevelamer HCl (Renagel) 800 mg PO TID [facility] Last Admin: 04/13/18 13:25 Dose: 800 mg Spironolactone (Aldactone) 50 mg PO DAILY [facility] Last Admin: 04/13/18 13:38 Dose: 50 mg Trazodone HCl (Desyrel) 100 mg PO HS [facility] Last Admin: 04/13/18 02:31 Dose: 100 mg Vitamin B Complex/Vit C/Folic Acid (Nephro-Bhupinder) 1 tab PO 0800 [facility] Last Admin: 04/13/18 08:26 Dose: 1 tab - Labs Labs: 04/13/18 09:15 04/13/18 09:15 PT 13.2 SECONDS (9.4-12.5) H 04/03/18 15:44 INR 1.15 04/03/18 15:44 APTT 30.7 Seconds (25.1-36.5) 04/03/18 15:44 Attending/Attestation - Attestation I have personally seen and examined this patient.: Yes I have fully participated in the care of the patient.: Yes I have reviewed all pertinent clinical information, including history, physical exam and plan: Yes Notes (Text): 04/13/18 15:09 Medical record note made by the resident after discussion with my direction and input after the patient was personally seen and examined by me. I have reviewed the chart and agree that the record accurately reflects by personal performance of the history, physical exam, data review, and medical decision-making, in the course for the patient. I have also personally directed the plan of care.
--- NOTE | 2018-04-12 14:25 | CP.PCM.PN ---
Subjective - Date & Time of Evaluation Date of Evaluation: 04/12/18 Time of Evaluation: 14:23 - Subjective Subjective: Nephrology Consultation Note: Assessment: stable oligoanuric Acute Kidney Injury (N17.9) likely due to ATN, pre-renal state, intrasvasc hypovolemia, impaired renal perfusion, HD 04/05/18: first session anasarca severe symptomatic anemia due to GI bleed with gastric ulcers mild hyperkalemia and HAGMA, hyperphos hx of cirrhosis and etoh intra-ab lymphadenopathy morbid obesity Plan HD tolerated well so far, on MWF schedule Maintain hemodynamics stable. Avoid hypotension. Patient not on ACEI/ARB due to recent FELIPE. added midodrine pre HD Monitor Input/Output, daily weights and renal function with basic metabolic panel added phos binders PRBC as needed. started IV iron. on weekly aranesp GI consult pt on PPI work up for FELIPE and anemia as ordered. GN work up neg hence will defer kidney biopsy. also pt with liver disease and morbidly obese. started weekly vit d consider further work up for ascites. started on aldactone 50 mg/d to reduce portal HTN Dose meds/antibiotics for reduced GFR. Avoid fleets enema/magnesium based la xatives. Avoid nephrotoxins/NSAIDs/ iodinated contrast (unless needed emergently) Glycemic control Further work up/management as per primary team SW for outpt hd placement. can f/up as outpt for renal recovery. stable for d/c from renal perspective once arranged for outpt HD. Av access will be planned later as outpt if no renal reovery in 3 months Thanks for allowing me to participate in care of your patient. Will follow patient with you. Please call if any Qs. had d/w team Dr Kenji Salmeron Office: [phone] Chief Complaint; fatigue Reason for consult: Acute Kidney Injury HPI: Pt is a 52 F with hx of alcoholism in past, cirrhosis (pt states got better on its own in past) but no regular follow up with PMD presented with complaints of fatigue and tiredness for last few days, found to have severe anemia and FELIPE Denies OTC/herbal meds but NSAIDs as alleve for last few days No recent iodinated contrast exposure. Noted obvious episodes of low BP. reports chronic leg swelling but more now denies smoking or etoh now ROS: c/o swelling in leg. had gastric ulcers on EGD Cardiovascular: No chest pain. Pulmonary: No shortness of breath Gastrointestinal: denies abdominal pain No nausea. No vomiting. Genitourinary: No pain while urinating. Denies blood in urine. All other negative except as mentioned in HPI Physical Examination: General Appearance: Comfortable, in no acute respiratory distress, co-operative . morbid obese Vitals reviewed and noted as below Head; Atraumatic, normocephalic ENT: no ulcers no thrush. Tongue is midline. Oropharynx: no rash or ulcers. EYES: Pupils are equal, round and reactive to light accommodation. Eye muscles and extraocular movement intact. Sclera is anicteric. Neck; supple no lymphadenopathy, no thyromegaly or bruit Lungs: Normal respiratory rate/effort. Breath sounds bilateral reduced at bases Heart: Normal rate. s1s2 normal. No rub or gallop. Extremities: 3+ edema. Neurological: Patient is alert, awake and oriented to person, place and time. No focal deficit. Strength bilateral appropriate and equal Skin: Warm and dry. Normal turgor. spider angioma rash upper chest. Palpitation: Normal elasticity for age Abdomen: Abdomen is soft. Bowel sounds +. There is no abdominal tenderness, no guarding/rigidity no organomegaly. limited due to obesity and abd wall edema Psych: normal insight and normal affect/mood MSK: no joint tenderness or swelling. Digits and nails normal, no deformity : kidney or bladder not palpable. has access as permacath Labs/imaging reviewed. Past medical history, past surgical history, family history, social history, allergy reviewed and noted as below Family hx: no hx of CKD. Rest non-contributory fena 0.3% intra-ab lymphadenopathy Objective - Vital Signs/Intake and Output Vital Signs (last 24 hours): Temp Pulse Resp BP Pulse Ox 99.1 F 90 19 95/49 L 97 04/12/18 12:00 04/12/18 12:00 04/12/18 12:00 04/12/18 12:00 04/12/18 06:00 Intake and Output: 04/12/18 04/12/18 06:59 18:59 Intake Total 1140 Balance 1140 - Medications Medications: Current Medications Albuterol/Ipratropium (Duoneb 3 Mg/0.5 Mg (3 Ml) Ud) 3 ml IH [id number] [facility] Last Admin: 04/12/18 13:11 Dose: 3 ml Albuterol/Ipratropium (Duoneb 3 Mg/0.5 Mg (3 Ml) Ud) 3 ml IH Q2H PRN PRN Reason: Shortness of Breath Last Admin: 04/10/18 23:56 Dose: 3 ml Alprazolam (Xanax) 0.25 mg PO TID PRN; Protocol PRN Reason: Anxiety Last Admin: 04/12/18 12:50 Dose: 0.25 mg Darbepoetin Fletcher (Aranesp) 150 mcg IVP QWK [facility] Ergocalciferol (Drisdol 50,000 Intl Units Cap) 1 cap PO Q7D [facility] Last Admin: 04/08/18 08:12 Dose: 1 cap Heparin Sodium (Porcine) (Heparin) 5,000 units SC Q8 [facility]; Protocol Iron Sucrose 100 mg/ Sodium (Chloride) 105 mls @ 210 mls/hr IVPB DAILY [facility] Stop: 04/15/18 10:01 Last Admin: 04/12/18 09:52 Dose: 210 mls/hr Midodrine (Proamatine) 10 mg PO MWF [facility] Last Admin: 04/11/18 09:26 Dose: 10 mg Pantoprazole Sodium (Protonix Ec Tab) 40 mg PO 0600,1600 [facility] Last Admin: 04/12/18 06:04 Dose: 40 mg Sevelamer HCl (Renagel) 800 mg PO TID [facility] Last Admin: 04/12/18 09:35 Dose: 800 mg Spironolactone (Aldactone) 50 mg PO DAILY [facility] Last Admin: 04/12/18 12:48 Dose: 50 mg Trazodone HCl (Desyrel) 100 mg PO HS [facility] Last Admin: 04/11/18 22:31 Dose: 100 mg Vitamin B Complex/Vit C/Folic Acid (Nephro-Bhupinder) 1 tab PO 0800 [facility] Last Admin: 04/12/18 08:45 Dose: 1 tab - Labs Labs: 04/12/18 06:00 04/12/18 06:00 PT 13.2 SECONDS (9.4-12.5) H 04/03/18 15:44 INR 1.15 04/03/18 15:44 APTT 30.7 Seconds (25.1-36.5) 12/18/18 15:44
--- NOTE | 2018-04-12 19:21 | PN ---
DATE: 04/12/2018 SUBJECTIVE: The patient was seen today. Patient reported that she was feeling anxious overnight. The patient reported that trazodone and Xanax were not helping her. The patient reported at the moment of the interview, she is feeling better. The patient reported that she has future oriented plans. She wants to start feeling better. The patient wants to be out of bed, but it depends on physical therapy evaluation. The patient denied feeling of hopelessness or helplessness. Denied suicidal ideation. OBJECTIVE: VITAL SIGNS: Reviewed. Temperature 100, pulse is 98, blood pressure 95/49, respirations 19, and oxygen saturation is 97. MEDICATIONS: Reviewed. The patient is on Xanax 0.25 mg three times a day as needed for anxiety as well as trazodone 100 mg at nighttime for depression and insomnia. LABORATORY DATA: Reviewed. MENTAL STATUS EXAMINATION: The patient presented to be alert, pleasant, cooperative. Mood described as feeling more optimistic. Affect was reactive. Mood congruent. Thought process was coherent and goal directed. Thought content, the patient denied visual, auditory, tactile hallucinations. Denied paranoid ideation. The patient denied thoughts of harming herself or others. Denied intent or plan. Insight and judgment seems to be fair. Impulse well controlled. IMPRESSION: Rule out mood disorder and anxiety disorder due to general medical condition. PLAN: Continue current management. Continue current medication. Continue Xanax, continue trazodone. We will follow up every other day. The patient is not suicidal, not homicidal. Supportive therapy provided. The patient needs to be seen by Psychiatry on Monday, on 04/14/2018. Rachel Maradiaga MD
[2018-04-13] MEDS: Albuterol-Ipratrop 3 mg / 0.5 (3 ml) UD IH SCH ×4 (01:52→19:54)
[2018-04-13] MEDS: Pantoprazole 40 mg EC Tab PO SCH ×2 (05:56→17:33)
--- NOTE | 2018-04-13 08:15 | CP.PCM.PN ---
Subjective - Date & Time of Evaluation Date of Evaluation: 04/13/18 Time of Evaluation: 08:13 - Subjective Subjective: Nephrology Consultation Note: Assessment: stable oligoanuric Acute Kidney Injury (N17.9) likely due to ATN, pre-renal state, intrasvasc hypovolemia, impaired renal perfusion, HD 04/05/18: first session anasarca severe symptomatic anemia due to GI bleed with gastric ulcers mild hyperkalemia and HAGMA, hyperphos hx of cirrhosis and etoh intra-ab lymphadenopathy morbid obesity Plan HD MWF Maintain hemodynamics stable. Avoid hypotension. Patient not on ACEI/ARB due to recent FELIPE. on midodrine pre HD Monitor Input/Output, daily weights and renal function with basic metabolic panel on phos binders PRBC as needed. started IV iron. on weekly aranesp GI consult pt on PPI work up for FELIPE and anemia as ordered. GN work up neg hence will defer kidney biopsy. also pt with liver disease and morbidly obese. started weekly vit d consider further work up for ascites. started on aldactone 50 mg/d to reduce portal HTN Dose meds/antibiotics for reduced GFR. Avoid fleets enema/magnesium based laxatives. Avoid nephrotoxins/NSAIDs/ iodinated contrast (unless needed emergently) Glycemic control Further work up/management as per primary team SW for outpt hd placement. can f/up as outpt for renal recovery. stable for d/c from renal perspective once arranged for outpt HD. Av access will be planned later as outpt if no renal recovery in 3 months s: seen and examined anxisou to wnat to get strenghtback Physical Examination: General Appearance: Comfortable, in no acute respiratory distress, co-operative . morbid obese Vitals reviewed and noted as below Head; Atraumatic, normocephalic ENT: no ulcers no thrush. Tongue is midline. Oropharynx: no rash or ulcers. EYES: Pupils are equal, round and reactive to light accommodation. Eye muscles and extraocular movement intact. Sclera is anicteric. Neck; supple no lymphadenopathy, no thyromegaly or bruit Lungs: Normal respiratory rate/effort. Breath sounds bilateral reduced at bases Heart: Normal rate. s1s2 normal. No rub or gallop. Extremities: 3+ edema. Neurological: Patient is alert, awake and oriented to person, place and time. No focal deficit. Strength bilateral appropriate and equal Skin: Warm and dry. Normal turgor. spider angioma rash upper chest. Palpitation: Normal elasticity for age Abdomen: Abdomen is soft. Bowel sounds +. There is no abdominal tenderness, no guarding/rigidity no organomegaly. limited due to obesity and abd wall edema Psych: normal insight and normal affect/mood MSK: no joint tenderness or swelling. Digits and nails normal, no deformity : kidney or bladder not palpable. has access as permacath Labs/imaging reviewed. Past medical history, past surgical history, family history, social history, allergy reviewed and noted as below Family hx: no hx of CKD. Rest non-contributory fena 0.3% intra-ab lymphadenopathy Objective - Vital Signs/Intake and Output Vital Signs (last 24 hours): Temp Pulse Resp BP Pulse Ox 101.2 F H 92 H 18 100/43 L 98 04/13/18 05:56 04/12/18 23:20 04/12/18 23:20 04/12/18 23:20 04/12/18 23:20 Intake and Output: 04/13/18 04/13/18 06:59 18:59 Intake Total 540 Balance 540 - Medications Medications: Current Medications Acetaminophen (Tylenol 325mg Tab) 650 mg PO Q6 PRN PRN Reason: Fever >100.4 F Last Admin: 04/13/18 05:56 Dose: 650 mg Albuterol/Ipratropium (Duoneb 3 Mg/0.5 Mg (3 Ml) Ud) 3 ml IH [id number] Last Admin: 04/13/18 08:09 Dose: 3 ml Albuterol/Ipratropium (Duoneb 3 Mg/0.5 Mg (3 Ml) Ud) 3 ml IH Q2H PRN PRN Reason: Shortness of Breath Last Admin: 04/10/18 23:56 Dose: 3 ml Alprazolam (Xanax) 0.25 mg PO TID PRN; Protocol PRN Reason: Anxiety Last Admin: 04/12/18 22:31 Dose: 0.25 mg Darbepoetin Fletcher (Aranesp) 150 mcg IVP QWK [facility] Ergocalciferol (Drisdol 50,000 Intl Units Cap) 1 cap PO Q7D [facility] Last Admin: 04/08/18 08:12 Dose: 1 cap Heparin Sodium (Porcine) (Heparin) 5,000 units SC Q8 [facility]; Protocol Last Admin: 04/13/18 05:55 Dose: 5,000 units Iron Sucrose 100 mg/ Sodium (Chloride) 105 mls @ 210 mls/hr IVPB DAILY [facility] Stop: 04/15/18 10:01 Last Admin: 04/12/18 09:52 Dose: 210 mls/hr Midodrine (Proamatine) 10 mg PO MWF [facility] Last Admin: 04/11/18 09:26 Dose: 10 mg Pantoprazole Sodium (Protonix Ec Tab) 40 mg PO 0600,1600 [facility] Last Admin: 04/13/18 05:56 Dose: 40 mg Sevelamer HCl (Renagel) 800 mg PO TID [facility] Last Admin: 04/12/18 17:15 Dose: 800 mg Spironolactone (Aldactone) 50 mg PO DAILY [facility] Last Admin: 04/12/18 12:48 Dose: 50 mg Trazodone HCl (Desyrel) 100 mg PO HS [facility] Last Admin: 04/13/18 02:31 Dose: 100 mg Vitamin B Complex/Vit C/Folic Acid (Nephro-Bhupinder) 1 tab PO 0800 [facility] Last Admin: 04/12/18 08:45 Dose: 1 tab - Labs Labs: 04/12/18 06:00 04/12/18 06:00 PT 13.2 SECONDS (9.4-12.5) H 04/03/18 15:44 INR 1.15 04/03/18 15:44 APTT 30.7 Seconds (25.1-36.5) 04/03/18 15:44
[2018-04-13] MEDS: Multivitamin Vitamin B Complex (Nephro-Vite) Tab PO SCH (08:26)
--- NOTE | 2018-04-13 08:30 | CP.PCM.PN ---
Subjective - Date & Time of Evaluation Date of Evaluation: 04/13/18 Time of Evaluation: 08:27 - Subjective Subjective: Podiatry Progress Note for Dr. Montalvo: 52F patient seen and evaluated at bedside for b/l chronic lymphedema, without evidence of cellulitis, and L heel ulceration. Objective - Vital Signs/Intake and Output Vital Signs (last 24 hours): Temp Pulse Resp BP Pulse Ox 101.2 F H 92 H 18 100/43 L 98 04/13/18 05:56 04/12/18 23:20 04/12/18 23:20 04/12/18 23:20 04/12/18 23:20 Intake and Output: 04/13/18 04/13/18 06:59 18:59 Intake Total 540 Balance 540 - Medications Medications: Current Medications Acetaminophen (Tylenol 325mg Tab) 650 mg PO Q6 PRN PRN Reason: Fever >100.4 F Last Admin: 04/13/18 05:56 Dose: 650 mg Albuterol/Ipratropium (Duoneb 3 Mg/0.5 Mg (3 Ml) Ud) 3 ml IH [id number] [facility]KAYLA Last Admin: 04/13/18 08:09 Dose: 3 ml Albuterol/Ipratropium (Duoneb 3 Mg/0.5 Mg (3 Ml) Ud) 3 ml IH Q2H PRN PRN Reason: Shortness of Breath Last Admin: 04/10/18 23:56 Dose: 3 ml Alprazolam (Xanax) 0.25 mg PO TID PRN; Protocol PRN Reason: Anxiety Last Admin: 04/12/18 22:31 Dose: 0.25 mg Darbepoetin Fletcher (Aranesp) 150 mcg IVP QWK [facility] Ergocalciferol (Drisdol 50,000 Intl Units Cap) 1 cap PO Q7D [facility] Last Admin: 04/08/18 08:12 Dose: 1 cap Heparin Sodium (Porcine) (Heparin) 5,000 units SC Q8 [facility]; Protocol Last Admin: 04/13/18 05:55 Dose: 5,000 units Iron Sucrose 100 mg/ Sodium (Chloride) 105 mls @ 210 mls/hr IVPB DAILY [facility] Stop: 04/15/18 10:01 Last Admin: 04/12/18 09:52 Dose: 210 mls/hr Midodrine (Proamatine) 10 mg PO MWF [facility] Last Admin: 04/11/18 09:26 Dose: 10 mg Pantoprazole Sodium (Protonix Ec Tab) 40 mg PO 0600,1600 [facility] Last Admin: 04/13/18 05:56 Dose: 40 mg Sevelamer HCl (Renagel) 800 mg PO TID [facility] Last Admin: 04/12/18 17:15 Dose: 800 mg Spironolactone (Aldactone) 50 mg PO DAILY [facility] Last Admin: 04/12/18 12:48 Dose: 50 mg Trazodone HCl (Desyrel) 100 mg PO HS [facility] Last Admin: 04/13/18 02:31 Dose: 100 mg Vitamin B Complex/Vit C/Folic Acid (Nephro-Bhupinder) 1 tab PO 0800 [facility] Last Admin: 04/12/18 08:45 Dose: 1 tab - Labs Labs: 04/12/18 06:00 04/12/18 06:00 PT 13.2 SECONDS (9.4-12.5) H 04/03/18 15:44 INR 1.15 04/03/18 15:44 APTT 30.7 Seconds (25.1-36.5) 04/03/18 15:44 - Constitutional Appears: Non-toxic, No Acute Distress - Head Exam Head Exam: ATRAUMATIC, NORMOCEPHALIC - Extremities Exam Additional comments: B/L lower extremity exam: Vascular: DP/PT faintly palpable secondary to edema, CFT < 3 seconds, TG warm to warm, no pedal hair present, +2 pitting edema to bilateral lower extremities beginning at the tibial tuberosity and extending distally to the digits Ortho: Generalized tenderness upon palpation of b/l lower extremities, MMT 4/5, no pain upon calf compression Neuro: Gross sensation intact, protective sensation diminished Derm: Superficial ulceration noted at the plantar aspect of the left heel measuring approximately 1.5 cm x 1.0 cm x .1 cm, with granular base. Friable skin noted to posterior aspect of legs bilaterally, no purulence, no drainage, no tunneling, no tracking, no probe to bone. - Neurological Exam Neurological Exam: Alert, Awake, Oriented x3 - Psychiatric Exam Psychiatric exam: Normal Affect, Normal Mood Assessment and Plan - Assessment and Plan (Free Text) Assessment: 52F patient with b/l chronic lymphedema, without evidence of cellulitis, and L heel ulceration. Plan: Patient seen and evaluated with Dr. Montalvo Febrile this morning, 101.2, WBC 8.2 B/L LE US; no evidence of DVT B/L LE arterial US ordered: Right SFA occlusive disease Wound culture take from L heel; e cloacae, e faecalis, heavy growth ID reccs appreciated; Cultures taken from the lower extremities are superficial swabs, therefore bacteria are colonizers. Continue to monitor off antibiotics Local wound care: L lower extremity ulceration dressed with optifoam, b/l legs left open to air Patient informed to keep her legs elevated at all times to help control the swelling Will continue to follow the patient while in house, stable for discharge from podiatry point of view
[2018-04-13] MEDS ORDERED: Vancomycin 2 GM in Sodium Chloride 0.9% 500 ML IVPB ONE (09:00)
[2018-04-13 09:22] LABS: BASO # 0.04 K/mm3 (0.0-2.0); BASO % 0.6 % (0.0-3.0); EOS # 0.2 (0.0-0.7); EOS % 3.3 % (1.5-5.0); GRAN # 5.56 (1.4-6.5); GRAN % 80.4 % (50.0-68.0); HEMOGLOBIN 8.2 g/dL (12.0-16.0); LYMPH # 0.5 (1.2-3.4); LYMPH % 7.5 % (22.0-35.0); MEAN CELL VOLUME 89.4 fl (80.0-105.0); MEAN CORPUSCULAR HEMOGLOBIN 28.1 pg (25.0-35.0); MEAN CORPUSCULAR HGB CONC 31.4 g/dl (31.0-37.0); MEAN PLATELET VOLUME 8.4 fl (7.0-11.0); MONO # 0.6 (0.1-0.6); MONO % 8.2 % (1.0-6.0); RBC 2.92 10^6/uL (3.5-6.1); RED CELL DISTRIBUTION WIDTH 21.8 % (11.5-14.5); WHITE BLOOD COUNT 6.9 10^3/uL (4.5-11.0)
[2018-04-13 09:42] LABS: ALB/GLOB RATIO 0.6 (1.1-1.8); CALCIUM 7.5 mg/dL (8.4-10.5)
--- NOTE | 2018-04-13 11:29 | CP.PCM.PN ---
<Nhung Anne - Last Filed: 04/13/18 11:26> Subjective - Date & Time of Evaluation Date of Evaluation: 04/13/18 Time of Evaluation: 10:34 - Subjective Subjective: Nhung Anne PGY1 Hospital Progress Note Patient seen and examined at bedside. Had a Tmax of 101.2F overnight. Denies nausea, vomiting, cough, SOB, diarrhea, constipation and chills. Blood cultures, urine culture pending. Started on IV vancomycin and cefepime. Offers no complaints today. Receiving hemodialysis. Objective - Vital Signs/Intake and Output Vital Signs (last 24 hours): Temp Pulse Resp BP Pulse Ox 101.2 F H 90 20 97/50 L 95 04/13/18 06:00 04/13/18 06:00 04/13/18 06:00 04/13/18 06:00 04/13/18 06:00 Intake and Output: 04/13/18 04/13/18 06:59 18:59 Intake Total 540 Balance 540 - Medications Medications: Current Medications Acetaminophen (Tylenol 325mg Tab) 650 mg PO Q6 PRN PRN Reason: Fever >100.4 F Last Admin: 04/13/18 05:56 Dose: 650 mg Albuterol/Ipratropium (Duoneb 3 Mg/0.5 Mg (3 Ml) Ud) 3 ml IH [id number] [facility]KAYLA Last Admin: 04/13/18 08:09 Dose: 3 ml Albuterol/Ipratropium (Duoneb 3 Mg/0.5 Mg (3 Ml) Ud) 3 ml IH Q2H PRN PRN Reason: Shortness of Breath Last Admin: 04/10/18 23:56 Dose: 3 ml Alprazolam (Xanax) 0.25 mg PO TID PRN; Protocol PRN Reason: Anxiety Last Admin: 04/12/18 22:31 Dose: 0.25 mg Darbepoetin Fletcher (Aranesp) 150 mcg IVP QWK [facility] Ergocalciferol (Drisdol 50,000 Intl Units Cap) 1 cap PO Q7D [facility] Last Admin: 04/08/18 08:12 Dose: 1 cap Heparin Sodium (Porcine) (Heparin) 5,000 units SC Q8 [facility]; Protocol Last Admin: 04/13/18 05:55 Dose: 5,000 units Iron Sucrose 100 mg/ Sodium (Chloride) 105 mls @ 210 mls/hr IVPB DAILY [facility] Stop: 04/15/18 10:01 Last Admin: 04/12/18 09:52 Dose: 210 mls/hr Vancomycin HCl 2 gm/ Sodium (Chloride) 500 mls @ 170 mls/hr IVPB ONCE ONE; Protocol Stop: 04/13/18 11:56 Cefepime HCl (Maxipime 2gm) 2 gm in 100 mls @ 100 mls/hr IVPB DAILY [facility]; Protocol Stop: 04/18/18 09:01 Midodrine (Proamatine) 10 mg PO MWF [facility] Last Admin: 04/13/18 08:27 Dose: 10 mg Pantoprazole Sodium (Protonix Ec Tab) 40 mg PO 0600,1600 [facility] Last Admin: 04/13/18 05:56 Dose: 40 mg Sevelamer HCl (Renagel) 800 mg PO TID [facility] Last Admin: 04/13/18 08:27 Dose: 800 mg Spironolactone (Aldactone) 50 mg PO DAILY [facility] Last Admin: 04/12/18 12:48 Dose: 50 mg Trazodone HCl (Desyrel) 100 mg PO HS [facility] Last Admin: 04/13/18 02:31 Dose: 100 mg Vitamin B Complex/Vit C/Folic Acid (Nephro-Bhupinder) 1 tab PO 0800 [facility] Last Admin: 04/13/18 08:26 Dose: 1 tab - Labs Labs: 04/13/18 09:15 04/13/18 09:15 PT 13.2 SECONDS (9.4-12.5) H 04/03/18 15:44 INR 1.15 04/03/18 15:44 APTT 30.7 Seconds (25.1-36.5) 04/03/18 15:44 - Additional Findings Additional findings: - Constitutional Appears: No Acute Distress - Head Exam Head Exam: NORMAL INSPECTION, ATRAUMATIC - Eye Exam Eye Exam: EOMI, PERRL - ENT Exam ENT Exam: Mucous Membranes Moist, Normal Exam - Neck Exam Neck exam: Positive for: Normal Inspection - Respiratory Exam Respiratory Exam: Clear to Auscultation Bilateral. absent: Rales, Rhonchi, Wheezes, respiratory distress - Cardiovascular Exam Cardiovascular Exam: Regular rhythm, +S1, +S2. absent: Systolic Murmur - GI/Abdominal Exam GI & Abdominal Exam: Soft. Bowel sounds heard in all 4 quadrants absent: Distended, Guarding, Rebound, Tenderness - Extremities Exam Extremities exam: Positive for: pedal edema Additional comments: 2+ edema diffuse noted on both legs -no draining/weeping/pus noted on lower extremities - Neurological Exam Neurological exam: Alert, CN II-XII Intact, Oriented x3 - Skin Skin Exam: Dry, Intact and Pallor Assessment and Plan - Assessment and Plan (Free Text) Assessment: Patient is a 52 yo F with past medical history liver failure, morbid obesity, and EtOH abuse presents to [facility] [place] worsening weakness and admitted for management of anemia and FELIPE with metabolic acidosis. Focusing on outpatient HD and PT at this time. Plan: Fever 101.2F -unknown source, no WBC -blood culture, urine culture pending -procalcitonin pending -started on IV vancomycin, cefepime day 1 Acute renal failure - improved -Cr is 4.2 from 3.7 yesterday -plan for HD today, on [facility] schedule -Working with pillowcase cleaner for outpatient HD setup -Renal US is unremarkable -Renagel 800 mg PO TID -Strict I's and O's -Nephrology on consult, Dr. Salmeron Chronic lymphedema of B/L legs -podiatry on consult, no further recommendations, local wound care for now - not currently draining/weeping -repeat ext US shows possible right SFA occlusive disease, limited study due to artifact -wound culture grew Enterobacter Cloacae, E. faecalis - superficial bacteria colonizers, repeat wound culture -PT recommends JENNA -daily PT rehab Microcytic anemia -s/p total 11 units pRBCs, 2 FFPs -endoscopy showed 3 non bleeding gastric ulcers, largest one 8mm -iron studies shows likely iron deficiency -Venofer 100 mg IV daily. Will transition to oral iron in 2 days -Head CT unremarkable -CTAP shows adenopathy of the hepatic gastric ligament -GI on consult, Dr. Melo Elevated BNP -BNP [id number] on admission -Echo showed EF of 68%, mild TR/MR, mild pulm HTN, borderline LVH Depression -Psych on consult, Dr. Ramos -continue trazodone PPX/Diet -protonix, heparin -renal diet Patient seen and case discussed with attending, Dr. Ojeda <Sagrario Ojeda - Last Filed: 04/13/18 15:09> Objective - Vital Signs/Intake and Output Vital Signs (last 24 hours): Temp Pulse Resp BP Pulse Ox 98.9 F 78 20 141/61 96 04/13/18 14:00 04/13/18 14:00 04/13/18 14:00 04/13/18 14:00 04/13/18 14:00 Intake and Output: 04/13/18 04/13/18 06:59 18:59 Intake Total 540 Balance 540 - Medications Medications: Current Medications Acetaminophen (Tylenol 325mg Tab) 650 mg PO Q6 PRN PRN Reason: Fever >100.4 F Last Admin: 04/13/18 05:56 Dose: 650 mg Albuterol/Ipratropium (Duoneb 3 Mg/0.5 Mg (3 Ml) Ud) 3 ml IH [id number] [facility]AYLA Last Admin: 04/13/18 13:42 Dose: 3 ml Albuterol/Ipratropium (Duoneb 3 Mg/0.5 Mg (3 Ml) Ud) 3 ml IH Q2H PRN PRN Reason: Shortness of Breath Last Admin: 04/10/18 23:56 Dose: 3 ml Alprazolam (Xanax) 0.25 mg PO TID PRN; Protocol PRN Reason: Anxiety Last Admin: 04/12/18 22:31 Dose: 0.25 mg Darbepoetin Fletcher (Aranesp) 150 mcg IVP QWK [facility] Ergocalciferol (Drisdol 50,000 Intl Units Cap) 1 cap PO Q7D [facility] Last Admin: 04/08/18 08:12 Dose: 1 cap Heparin Sodium (Porcine) (Heparin) 5,000 units SC Q8 [facility]; Protocol Last Admin: 04/13/18 13:24 Dose: 5,000 units Iron Sucrose 100 mg/ Sodium (Chloride) 105 mls @ 210 mls/hr IVPB DAILY [facility] Stop: 04/15/18 10:01 Last Admin: 04/13/18 14:45 Dose: 210 mls/hr Cefepime HCl (Maxipime 2gm) 2 gm in 100 mls @ 100 mls/hr IVPB DAILY [facility]; Protocol Stop: 04/18/18 09:01 Last Admin: 04/13/18 13:27 Dose: 100 mls/hr Midodrine (Proamatine) 10 mg PO MWF [facility] Last Admin: 04/13/18 10:00 Dose: Not Given Pantoprazole Sodium (Protonix Ec Tab) 40 mg PO 0600,1600 [facility] Last Admin: 04/13/18 05:56 Dose: 40 mg Sevelamer HCl (Renagel) 800 mg PO TID [facility] Last Admin: 04/13/18 13:25 Dose: 800 mg Spironolactone (Aldactone) 50 mg PO DAILY [facility] Last Admin: 04/13/18 13:38 Dose: 50 mg Trazodone HCl (Desyrel) 100 mg PO HS [facility] Last Admin: 04/13/18 02:31 Dose: 100 mg Vitamin B Complex/Vit C/Folic Acid (Nephro-Bhupinder) 1 tab PO 0800 [facility] Last Admin: 04/13/18 08:26 Dose: 1 tab - Labs Labs: 04/13/18 09:15 04/13/18 09:15 PT 13.2 SECONDS (9.4-12.5) H 04/03/18 15:44 INR 1.15 04/03/18 15:44 APTT 30.7 Seconds (25.1-36.5) 04/03/18 15:44 Attending/Attestation - Attestation I have personally seen and examined this patient.: Yes I have fully participated in the care of the patient.: Yes I have reviewed all pertinent clinical information, including history, physical exam and plan: Yes Notes (Text): 04/13/18 15:04 Medical record note made by the resident after discussion with my direction and input after the patient was personally seen and examined by me. I have reviewed the chart and agree that the record accurately reflects by personal performance of the history, physical exam, data review, and medical decision-making, in the course for the patient. I have also personally directed the plan of care. 52 year old female with past medical history of liver failure, alcohol abuse, depression and gastric bypass surgery who presented with complaint of generalized weakness, fatigue and dark stools. She was found to have acute microcytic anemia and severe metabolic acidosis with acute renal failure. She is s/p multiple PRBC transfusions. She is s/p EGD which showed multiple gastric ulcers. She is on protonix Hemoglobin is stable. Continue to monitory CBC closely. Patient was started on iv iron. Nephrology is following for Renal failure and metabolic acidosis. Patient has been started on hemodialysis. Will need outpatient dialysis set up for d/c planning. Case was discussed with Nephrology yesterday, there is no plan for AV graft at this time as it is possible that patient may not need veterinary physiologist dialysis. Podiatry is following for bilateral LE swelling and weeping. Continue with local wound care. Wound culture noted to be positive for Enterobacter cloacae and Enterococcus faecalis. ,Patient spike Fever 101 .2 F last night, sepsis work up is ordered,Chest X ray was negative for Pneumonia and catheter site looks clean.Patient is started on IV antibiotics vancomycin and cefepime. We will follow up cultures. ID is following, PT evaluation was appreciated who recommended JENNA. Management plan was discussed in detail with patient. Education was provided
--- NOTE | 2018-04-13 12:35 | CP.PCM.PN ---
Subjective - Date & Time of Evaluation Date of Evaluation: 04/13/18 Time of Evaluation: 07:40 - Subjective Subjective: Patient developed fever overnight but no chills, no cough. No diarrhea, no nausea. For dialysis today. Objective - Vital Signs/Intake and Output Vital Signs (last 24 hours): Temp Pulse Resp BP Pulse Ox 99.1 F 93 H 22 120/48 L 97 04/12/18 06:00 04/12/18 06:00 04/12/18 06:00 04/12/18 06:00 04/12/18 06:00 Intake and Output: 04/12/18 04/12/18 06:59 18:59 Intake Total 1140 Balance 1140 - Medications Medications: Current Medications Albuterol/Ipratropium (Duoneb 3 Mg/0.5 Mg (3 Ml) Ud) 3 ml IH [id number] [facility] Last Admin: 04/12/18 07:34 Dose: 3 ml Albuterol/Ipratropium (Duoneb 3 Mg/0.5 Mg (3 Ml) Ud) 3 ml IH Q2H PRN PRN Reason: Shortness of Breath Last Admin: 04/10/18 23:56 Dose: 3 ml Alprazolam (Xanax) 0.25 mg PO TID PRN; Protocol PRN Reason: Anxiety Last Admin: 04/12/18 04:36 Dose: 0.25 mg Darbepoetin Fletcher (Aranesp) 150 mcg IVP QWK [facility] Ergocalciferol (Drisdol 50,000 Intl Units Cap) 1 cap PO Q7D [facility] Last Admin: 04/08/18 08:12 Dose: 1 cap Heparin Sodium (Porcine) (Heparin) 5,000 units SC Q8 [facility]; Protocol Iron Sucrose 100 mg/ Sodium (Chloride) 105 mls @ 210 mls/hr IVPB DAILY [facility] Stop: 04/15/18 10:01 Last Admin: 04/12/18 09:52 Dose: 210 mls/hr Midodrine (Proamatine) 10 mg PO MWF [facility] Last Admin: 04/11/18 09:26 Dose: 10 mg Pantoprazole Sodium (Protonix Ec Tab) 40 mg PO 0600,1600 [facility] Last Admin: 04/12/18 06:04 Dose: 40 mg Sevelamer HCl (Renagel) 800 mg PO TID [facility] Last Admin: 04/12/18 09:35 Dose: 800 mg Spironolactone (Aldactone) 50 mg PO DAILY [facility] Trazodone HCl (Desyrel) 100 mg PO HS [facility] Last Admin: 04/11/18 22:31 Dose: 100 mg Vitamin B Complex/Vit C/Folic Acid (Nephro-Bhupinder) 1 tab PO 0800 [facility] Last Admin: 04/12/18 08:45 Dose: 1 tab - Labs Labs: 04/12/18 06:00 04/12/18 06:00 PT 13.2 SECONDS (9.4-12.5) H 04/03/18 15:44 INR 1.15 04/03/18 15:44 APTT 30.7 Seconds (25.1-36.5) 04/03/18 15:44 - Constitutional Appears: Chronically Ill - Head Exam Head Exam: NORMAL INSPECTION - Respiratory Exam Respiratory Exam: Decreased Breath Sounds - Cardiovascular Exam Cardiovascular Exam: +S1, +S2 - GI/Abdominal Exam GI & Abdominal Exam: Soft. absent: Tenderness Assessment and Plan - Assessment and Plan (Free Text) Plan: Assessment new onset SIRS, R/O sepsis, source to be determined chronic lymphedema of lower extremities without evidence of cellulitis morbid obesity with BMI 52 chronic renal failure R/O peripheral vascular disease Plan gave a dose of IV Vancomycin and Cefepime pending blood, urine cx, PCT, CXR, rapid influenza test will monitor clinically
[2018-04-13] MEDS: Cefepime IV 2 gm in NS 2 GM/100 ML BAG IVPB SCH (13:27)
--- NOTE | 2018-04-13 14:34 | RAD ---
Date of service: 04/13/2018 HISTORY: rule out pneumonia COMPARISON: 04/12/2018 FINDINGS: LUNGS: No active pulmonary disease. PLEURA: No significant pleural effusion identified, no pneumothorax apparent. CARDIOVASCULAR: No aortic atherosclerotic calcification present. Moderate cardiomegaly moderate vascular congestion OSSEOUS STRUCTURES: No significant abnormalities. VISUALIZED UPPER ABDOMEN: Normal. OTHER FINDINGS: Right-sided dialysis catheter IMPRESSION: Moderate cardiomegaly and moderate vascular congestion
[2018-04-13 17:34] LABS: PH,URINE 5.5 (4.7-8.0); URINE BILIRUBIN MODERATE (NEGATIVE); URINE BLOOD LARGE (NEGATIVE); URINE GLUCOSE (UA) NEGATIVE (NEGATIVE); URINE LEUKOCYTE ESTERASE MODERATE Leu/uL (NEGATIVE); URINE PROTEIN 100 mg/dL (<30 mg/dL)
[2018-04-13 17:35] LABS: URINE APPEARANCE CLOUDY (CLEAR); URINE COLOR LIGHT BROWN (YELLOW)
[2018-04-13 17:36] LABS: URINE BACTERIA MANY /hpf; URINE RBC 25 - 30 /hpf (0-2); URINE WBC TNTC /hpf (0-6)
[2018-04-14] MEDS: Albuterol-Ipratrop 3 mg / 0.5 (3 ml) UD IH SCH ×5 (01:50→20:16)
[2018-04-14] MEDS: Pantoprazole 40 mg EC Tab PO SCH ×2 (06:16→17:28)
[2018-04-14 06:58] LABS: BASO # 0.04 K/mm3 (0.0-2.0); BASO % 0.8 % (0.0-3.0); EOS # 0.3 (0.0-0.7); GRAN # 3.56 (1.4-6.5); GRAN % 70.8 % (50.0-68.0); HEMOGLOBIN 8.6 g/dL (12.0-16.0); LYMPH # 0.6 (1.2-3.4); LYMPH % 12.4 % (22.0-35.0); MEAN CORPUSCULAR HEMOGLOBIN 27.8 pg (25.0-35.0); MEAN CORPUSCULAR HGB CONC 31.3 g/dl (31.0-37.0); MEAN PLATELET VOLUME 8.9 fl (7.0-11.0); MONO # 0.5 (0.1-0.6); RBC 3.09 10^6/uL (3.5-6.1); RED CELL DISTRIBUTION WIDTH 21.6 % (11.5-14.5)
[2018-04-14 07:00] LABS: ALB/GLOB RATIO 0.7 (1.1-1.8); ALBUMIN 2.1 g/dL (3.0-4.8); CALCIUM 7.5 mg/dL (8.4-10.5)
--- NOTE | 2018-04-14 09:21 | CP.PCM.PN ---
<Дмитрий Finney - Last Filed: 04/14/18 10:12> Subjective - Date & Time of Evaluation Date of Evaluation: 04/14/18 Time of Evaluation: 09:21 - Subjective Subjective: Podiatry Progress Note for Dr. Montalvo 52F patient seen and evaluated at bedside for b/l edema and L heel ulceration. Resting comfortably without weeping from legs. She denies any pain to b/l lower extremities. Denies N/V/F. Objective - Vital Signs/Intake and Output Vital Signs (last 24 hours): Temp Pulse Resp BP Pulse Ox 98.6 F 84 18 103/46 L 96 04/14/18 06:00 04/14/18 06:00 04/14/18 06:00 04/14/18 06:00 04/14/18 06:00 Intake and Output: 04/14/18 04/14/18 06:59 18:59 Intake Total 240 Balance 240 - Medications Medications: Current Medications Acetaminophen (Tylenol 325mg Tab) 650 mg PO Q6 PRN PRN Reason: Fever >100.4 F Last Admin: 04/13/18 05:56 Dose: 650 mg Albuterol/Ipratropium (Duoneb 3 Mg/0.5 Mg (3 Ml) Ud) 3 ml IH [id number] MAKAYLA Last Admin: 04/14/18 07:54 Dose: 3 ml Albuterol/Ipratropium (Duoneb 3 Mg/0.5 Mg (3 Ml) Ud) 3 ml IH Q2H PRN PRN Reason: Shortness of Breath Last Admin: 04/10/18 23:56 Dose: 3 ml Alprazolam (Xanax) 0.25 mg PO TID PRN; Protocol PRN Reason: Anxiety Last Admin: 04/12/18 22:31 Dose: 0.25 mg Darbepoetin Fletcher (Aranesp) 150 mcg IVP QWK [facility] Ergocalciferol (Drisdol 50,000 Intl Units Cap) 1 cap PO Q7D [facility]KAYLA Last Admin: 04/08/18 08:12 Dose: 1 cap Heparin Sodium (Porcine) (Heparin) 5,000 units SC Q8 [facility]; Protocol Last Admin: 04/14/18 06:16 Dose: 5,000 units Iron Sucrose 100 mg/ Sodium (Chloride) 105 mls @ 210 mls/hr IVPB DAILY [facility] Stop: 04/15/18 10:01 Last Admin: 04/13/18 14:45 Dose: 210 mls/hr Cefepime HCl (Maxipime 2gm) 2 gm in 100 mls @ 100 mls/hr IVPB DAILY [facility]; Protocol Stop: 04/18/18 09:01 Last Admin: 04/13/18 13:27 Dose: 100 mls/hr Midodrine (Proamatine) 10 mg PO MWF [facility] Last Admin: 04/13/18 10:00 Dose: Not Given Oseltamivir Phosphate (Tamiflu Cap) 30 mg PO DAILY [facility]; Protocol Last Admin: 04/13/18 19:12 Dose: 30 mg Pantoprazole Sodium (Protonix Ec Tab) 40 mg PO 0600,1600 [facility] Last Admin: 04/14/18 06:16 Dose: 40 mg Sevelamer HCl (Renagel) 800 mg PO TID [facility] Last Admin: 04/13/18 17:33 Dose: 800 mg Spironolactone (Aldactone) 50 mg PO DAILY [facility] Last Admin: 04/13/18 13:38 Dose: 50 mg Trazodone HCl (Desyrel) 100 mg PO HS [facility] Last Admin: 04/13/18 22:55 Dose: 100 mg Vitamin B Complex/Vit C/Folic Acid (Nephro-Bhupinder) 1 tab PO 0800 [facility] Last Admin: 04/13/18 08:26 Dose: 1 tab - Labs Labs: 04/14/18 06:00 04/14/18 06:00 PT 13.2 SECONDS (9.4-12.5) H 04/03/18 15:44 INR 1.15 04/03/18 15:44 APTT 30.7 Seconds (25.1-36.5) 04/03/18 15:44 - Constitutional Appears: Well, Non-toxic, No Acute Distress - Head Exam Head Exam: ATRAUMATIC, NORMOCEPHALIC - Extremities Exam Additional comments: Vascular: DP/PT non palpable secondary to edema, CFT < 3 seconds, TG warm to warm, no pedal hair present, +2 pitting edema to bilateral lower extremities beginning at the tibial tuberosity and extending distally to the digits Ortho: Tenderness to palpation of b/l lower extremities, MMT 4/5 Neuro: Gross sensation intact, protective sensation diminished Derm: Friable skin noted to posterior aspect of b/l legs, no purulence, no tunneling, no tracking, no probe to bone. Superficial ulceration noted at the plantar aspect of the left heel measuring approximately 1.5 cm x 1.0 cm x .1 cm, with granular base - Neurological Exam Neurological Exam: Alert, Awake, Oriented x3 - Psychiatric Exam Psychiatric exam: Normal Affect, Normal Mood Assessment and Plan - Assessment and Plan (Free Text) Assessment: 52F with b/l LE edema and left heel ulcer Plan: Patient seen and evaluated with Dr. Montalvo Afebrile, absent leukocytosis B/L LE US; no evidence of DVT to bilateral lower extremities B/l LE arterial US ordered: Right SFA occlusive disease Wound culture take from L heel; e cloacae, e faecalis - heavy growth Local wound care: L LE ulceration cleansed with sterile saline and dressed with optifoam Patient informed to keep her legs elevated at all times to help control the swelling ID on board; recs appreciated, continue medications Will continue to follow the patient while in house, stable for discharge from podiatry point of view <Bart Montalvo - Last Filed: 04/18/18 17:48> Objective - Vital Signs/Intake and Output Vital Signs (last 24 hours): Temp Pulse Resp BP Pulse Ox 97.8 F 47 L 20 116/54 L 97 04/18/18 13:54 04/18/18 13:54 04/18/18 13:54 04/18/18 13:54 04/18/18 13:54 Intake and Output: 04/18/18 04/18/18 06:59 18:59 Intake Total 480 Output Total 900 Balance -420 - Medications Medications: Current Medications Acetaminophen (Tylenol 325mg Tab) 650 mg PO Q6 PRN PRN Reason: Fever >100.4 F Last Admin: 04/13/18 05:56 Dose: 650 mg Albuterol/Ipratropium (Duoneb 3 Mg/0.5 Mg (3 Ml) Ud) 3 ml IH [id number] [facility]KAYLA Last Admin: 04/18/18 07:28 Dose: 3 ml Albuterol/Ipratropium (Duoneb 3 Mg/0.5 Mg (3 Ml) Ud) 3 ml IH Q2H PRN PRN Reason: Shortness of Breath Last Admin: 04/10/18 23:56 Dose: 3 ml Alprazolam (Xanax) 0.25 mg PO TID PRN; Protocol PRN Reason: Anxiety Last Admin: 04/18/18 13:58 Dose: 0.25 mg Darbepoetin Fletcher (Aranesp) 150 mcg IVP QWK [facility] Last Admin: 04/16/18 08:56 Dose: 150 mcg Ergocalciferol (Drisdol 50,000 Intl Units Cap) 1 cap PO Q7D [facility] Last Admin: 04/15/18 14:05 Dose: 1 cap Heparin Sodium (Porcine) (Heparin) 5,000 units SC Q8 [facility]; Protocol Last Admin: 04/18/18 14:41 Dose: 5,000 units Meropenem/Sodium Chloride (Merrem Iv 500 Mg/Ns 50 Ml) 500 mg in 50 mls @ 100 mls/hr IVPB Q24H [facility]; Protocol Last Admin: 04/18/18 14:42 Dose: 100 mls/hr Iron Sucrose 100 mg/ Sodium (Chloride) 105 mls @ 210 mls/hr IVPB QWK [facility] Stop: 05/18/18 10:29 Midodrine (Proamatine) 10 mg PO MWF [facility] Last Admin: 04/18/18 14:00 Dose: Not Given Multi-Ingredient Ointment (Hydrophor Oint) 0 gm TOP Q12 [facility] Nystatin (Nystop Topical Powder) 0 gm TOP BID [facility] Last Admin: 04/18/18 17:01 Dose: 1 appl Pantoprazole Sodium (Protonix Ec Tab) 40 mg PO 0600,1600 [facility] Last Admin: 04/18/18 17:00 Dose: 40 mg Sevelamer HCl (Renagel) 800 mg PO TID [facility] Last Admin: 04/18/18 17:00 Dose: 800 mg Spironolactone (Aldactone) 50 mg PO DAILY [facility] Last Admin: 04/18/18 13:37 Dose: Not Given Trazodone HCl (Desyrel) 100 mg PO HS [facility] Last Admin: 04/17/18 22:33 Dose: 100 mg Vitamin B Complex/Vit C/Folic Acid (Nephro-Bhupinder) 1 tab PO 0800 [facility] Last Admin: 04/18/18 14:00 Dose: Not Given - Labs Labs: 04/18/18 06:10 04/18/18 06:10 PT 13.2 SECONDS (9.4-12.5) H 04/03/18 15:44 INR 1.15 04/03/18 15:44 APTT 30.7 Seconds (25.1-36.5) 04/03/18 15:44 Attending/Attestation - Attestation I have personally seen and examined this patient.: Yes I have fully participated in the care of the patient.: Yes I have reviewed all pertinent clinical information, including history, physical exam and plan: Yes
[2018-04-14] MEDS: Cefepime IV 2 gm in NS 2 GM/100 ML BAG IVPB SCH (09:50)
[2018-04-14] MEDS: Multivitamin Vitamin B Complex (Nephro-Vite) Tab PO SCH (09:51)
[2018-04-14] MEDS: Darbepoetin Alfa 100 mcg/ml Inj IVP SCH (11:54)
--- NOTE | 2018-04-14 13:42 | CP.PCM.PN ---
<Nhung Anne - Last Filed: 04/14/18 13:38> Subjective - Date & Time of Evaluation Date of Evaluation: 04/14/18 Time of Evaluation: 10:51 - Subjective Subjective: Nhung Anne PGY1 Hospital Progress Note Patient seen and examined at bedside this morning. No acute events reported overnight. S/p HD yesterday. Resting comfortably in bed. Offers no complaints today. Tested positive for flu, started on tamilfu. Objective - Vital Signs/Intake and Output Vital Signs (last 24 hours): Temp Pulse Resp BP Pulse Ox 98.6 F 84 18 103/46 L 96 04/14/18 06:00 04/14/18 06:00 04/14/18 06:00 04/14/18 06:00 04/14/18 06:00 Intake and Output: 04/14/18 04/14/18 06:59 18:59 Intake Total 240 Balance 240 - Medications Medications: Current Medications Acetaminophen (Tylenol 325mg Tab) 650 mg PO Q6 PRN PRN Reason: Fever >100.4 F Last Admin: 04/13/18 05:56 Dose: 650 mg Albuterol/Ipratropium (Duoneb 3 Mg/0.5 Mg (3 Ml) Ud) 3 ml IH [id number] MAKAYLA Last Admin: 04/14/18 07:54 Dose: 3 ml Albuterol/Ipratropium (Duoneb 3 Mg/0.5 Mg (3 Ml) Ud) 3 ml IH Q2H PRN PRN Reason: Shortness of Breath Last Admin: 04/10/18 23:56 Dose: 3 ml Alprazolam (Xanax) 0.25 mg PO TID PRN; Protocol PRN Reason: Anxiety Last Admin: 04/12/18 22:31 Dose: 0.25 mg Darbepoetin Fletcher (Aranesp) 150 mcg IVP QWK [facility] Last Admin: 04/14/18 11:54 Dose: 150 mcg Ergocalciferol (Drisdol 50,000 Intl Units Cap) 1 cap PO Q7D [facility]LA Last Admin: 04/08/18 08:12 Dose: 1 cap Heparin Sodium (Porcine) (Heparin) 5,000 units SC Q8 [facility]; Protocol Last Admin: 04/14/18 06:16 Dose: 5,000 units Iron Sucrose 100 mg/ Sodium (Chloride) 105 mls @ 210 mls/hr IVPB DAILY [facility] Stop: 04/15/18 10:01 Last Admin: 04/14/18 11:54 Dose: 210 mls/hr Cefepime HCl (Maxipime 2gm) 2 gm in 100 mls @ 100 mls/hr IVPB DAILY [facility]; Protocol Stop: 04/18/18 09:01 Last Admin: 04/14/18 09:50 Dose: 100 mls/hr Midodrine (Proamatine) 10 mg PO MWF [facility] Last Admin: 04/13/18 10:00 Dose: Not Given Oseltamivir Phosphate (Tamiflu Cap) 30 mg PO DAILY [facility]; Protocol Last Admin: 04/14/18 09:51 Dose: 30 mg Pantoprazole Sodium (Protonix Ec Tab) 40 mg PO 0600,1600 [facility] Last Admin: 04/14/18 06:16 Dose: 40 mg Sevelamer HCl (Renagel) 800 mg PO TID [facility] Last Admin: 04/14/18 09:51 Dose: 800 mg Spironolactone (Aldactone) 50 mg PO DAILY [facility] Last Admin: 04/14/18 11:53 Dose: 50 mg Trazodone HCl (Desyrel) 100 mg PO HS [facility] Last Admin: 04/13/18 22:55 Dose: 100 mg Vitamin B Complex/Vit C/Folic Acid (Nephro-Bhupinder) 1 tab PO 0800 [facility] Last Admin: 04/14/18 09:51 Dose: 1 tab - Labs Labs: 04/14/18 06:00 04/14/18 06:00 PT 13.2 SECONDS (9.4-12.5) H 04/03/18 15:44 INR 1.15 04/03/18 15:44 APTT 30.7 Seconds (25.1-36.5) 04/03/18 15:44 - Additional Findings Additional findings: - Constitutional Appears: No Acute Distress - Head Exam Head Exam: NORMAL INSPECTION, ATRAUMATIC - Eye Exam Eye Exam: EOMI, PERRL - ENT Exam ENT Exam: Mucous Membranes Moist, Normal Exam - Neck Exam Neck exam: Positive for: Normal Inspection - Respiratory Exam Respiratory Exam: Clear to Auscultation Bilateral. absent: Rales, Rhonchi, Wheezes, respiratory distress - Cardiovascular Exam Cardiovascular Exam: Regular rhythm, +S1, +S2. absent: Systolic Murmur - GI/Abdominal Exam GI & Abdominal Exam: Soft. Bowel sounds heard in all 4 quadrants absent: Distended, Guarding, Rebound, Tenderness - Extremities Exam Extremities exam: Positive for: pedal edema Additional comments: 2+ edema diffuse noted on both legs -no draining/weeping/pus noted on lower extremities - Neurological Exam Neurological exam: Alert, CN II-XII Intact, Oriented x3 - Skin Skin Exam: Dry, Intact and Pallor Assessment and Plan - Assessment and Plan (Free Text) Assessment: Patient is a 52 yo F with past medical history liver failure, morbid obesity, and EtOH abuse presents to [facility] for worsening weakness and admitted for management of anemia and FELIPE with metabolic acidosis. Focusing on outpatient HD and PT at this time. Plan: Fever -no fever overnight/today, no WBC -positive flu type A, tamiflu day 2 -CXR showed moderate cardiomegaly, vascular congestion -blood culture shows no growth after 24 hours -urine culture pending -U/A positive leuk esterase, patient is asymptomatic -procalcitonin mildly elevated -cefepime day 2 Acute renal failure - improved -Cr is 3.3 today from 4.2 yesterday -s/p HD yesterday, on MWF schedule -Working with rehabilitation case coordinator for outpatient HD setup -Renal US is unremarkable -Renagel 800 mg PO TID -Strict I's and O's -Nephrology on consult, Dr. Salmeron Chronic lymphedema of B/L legs -podiatry on consult, no further recommendations, local wound care for now - not currently draining/weeping -repeat ext US shows possible right SFA occlusive disease, limited study due to artifact -wound culture grew Enterobacter Cloacae, E. faecalis - superficial bacteria colonizers, repeat wound culture -PT recommends [facility]NA -daily PT rehab Microcytic anemia -s/p total 11 units pRBCs, 2 FFPs -endoscopy showed 3 non bleeding gastric ulcers, largest one 8mm -iron studies shows likely iron deficiency -Venofer 100 mg IV daily. Will transition to oral iron in 2 days -Head CT unremarkable -CTAP shows adenopathy of the hepatic gastric ligament -GI on consult, Dr. Melo Elevated BNP -BNP [id number] on admission -Echo showed EF of 68%, mild TR/MR, mild pulm HTN, borderline LVH Depression -Psych on consult, Dr. Ramos -continue trazodone PPX/Diet -protonix, heparin -renal diet Patient seen and case discussed with attending, Dr. Ross <Miko Ross - Last Filed: 04/14/18 15:00> Objective - Vital Signs/Intake and Output Vital Signs (last 24 hours): Temp Pulse Resp BP Pulse Ox 98.6 F 84 18 103/46 L 96 04/14/18 06:00 04/14/18 06:00 04/14/18 06:00 04/14/18 06:00 04/14/18 06:00 Intake and Output: 04/14/18 04/14/18 06:59 18:59 Intake Total 240 Balance 240 - Medications Medications: Current Medications Acetaminophen (Tylenol 325mg Tab) 650 mg PO Q6 PRN PRN Reason: Fever >100.4 F Last Admin: 04/13/18 05:56 Dose: 650 mg Albuterol/Ipratropium (Duoneb 3 Mg/0.5 Mg (3 Ml) Ud) 3 ml IH [id number] MAKAYLA Last Admin: 04/14/18 07:54 Dose: 3 ml Albuterol/Ipratropium (Duoneb 3 Mg/0.5 Mg (3 Ml) Ud) 3 ml IH Q2H PRN PRN Reason: Shortness of Breath Last Admin: 04/10/18 23:56 Dose: 3 ml Alprazolam (Xanax) 0.25 mg PO TID PRN; Protocol PRN Reason: Anxiety Last Admin: 04/12/18 22:31 Dose: 0.25 mg Darbepoetin Fletcher (Aranesp) 150 mcg IVP QWK [facility] Last Admin: 04/14/18 11:54 Dose: 150 mcg Ergocalciferol (Drisdol 50,000 Intl Units Cap) 1 cap PO Q7D [facility] Last Admin: 04/08/18 08:12 Dose: 1 cap Heparin Sodium (Porcine) (Heparin) 5,000 units SC Q8 [facility]; Protocol Last Admin: 04/14/18 06:16 Dose: 5,000 units Iron Sucrose 100 mg/ Sodium (Chloride) 105 mls @ 210 mls/hr IVPB DAILY [facility] Stop: 04/15/18 10:01 Last Admin: 04/14/18 11:54 Dose: 210 mls/hr Cefepime HCl (Maxipime 2gm) 2 gm in 100 mls @ 100 mls/hr IVPB DAILY [facility]; Protocol Stop: 04/18/18 09:01 Last Admin: 04/14/18 09:50 Dose: 100 mls/hr Midodrine (Proamatine) 10 mg PO MWF [facility] Last Admin: 04/13/18 10:00 Dose: Not Given Oseltamivir Phosphate (Tamiflu Cap) 30 mg PO DAILY [facility]; Protocol Last Admin: 04/14/18 09:51 Dose: 30 mg Pantoprazole Sodium (Protonix Ec Tab) 40 mg PO 0600,1600 [facility] Last Admin: 04/14/18 06:16 Dose: 40 mg Sevelamer HCl (Renagel) 800 mg PO TID [facility] Last Admin: 04/14/18 09:51 Dose: 800 mg Spironolactone (Aldactone) 50 mg PO DAILY [facility] Last Admin: 04/14/18 11:53 Dose: 50 mg Trazodone HCl (Desyrel) 100 mg PO HS [facility] Last Admin: 04/13/18 22:55 Dose: 100 mg Vitamin B Complex/Vit C/Folic Acid (Nephro-Bhupinder) 1 tab PO 0800 [facility] Last Admin: 04/14/18 09:51 Dose: 1 tab - Labs Labs: 04/14/18 06:00 04/14/18 06:00 PT 13.2 SECONDS (9.4-12.5) H 04/03/18 15:44 INR 1.15 04/03/18 15:44 APTT 30.7 Seconds (25.1-36.5) 04/03/18 15:44 Attending/Attestation - Attestation I have personally seen and examined this patient.: Yes I have fully participated in the care of the patient.: Yes I have reviewed all pertinent clinical information, including history, physical exam and plan: Yes Notes (Text): 04/14/18 14:52 52 year old female with past medical history of liver failures, alcohol abuse, depression and gastric bypass surgery who presented with generalized weakness, fatigue and dark stools. She was found to have acute anemia and severe metabolic acidosis and acute renal failure. She is s/p multiple PRBC transfusions. She is s/p EGD which showed multiple gastric ulcers. She is on protonix. H/H has been stable. She was started on iv iron. Continue with hemodialysis as per nephrology. Patient will need outpatient dialysis set up which Yudi/Ander is working on. Podiatry is following for bilateral LE swelling and weeping. Continue with lo suki wound care. Wound culture was positive for Enterobacter Clocae and Enterococcus Faecalis. Yesterday morning she was noted to have fever and started on iv antibiotics by ID. Repeat BCx and UCx is pending. UA was noted. PT evaluation was appreciated who recommended [facility]. Will discuss with Yudi/Ander. Miko Ross MD Hospitalist.
--- NOTE | 2018-04-14 14:02 | CP.PCM.PN ---
Subjective - Date & Time of Evaluation Date of Evaluation: 04/14/18 Time of Evaluation: 14:01 - Subjective Subjective: Nephrology Consultation Note: Assessment: stable oligoanuric Acute Kidney Injury (N17.9) likely due to ATN, pre-renal state, intrasvasc hypovolemia, impaired renal perfusion, HD 04/05/18: first session anasarca severe symptomatic anemia due to GI bleed with gastric ulcers mild hyperkalemia and HAGMA, hyperphos hx of cirrhosis and etoh intra-ab lymphadenopathy morbid obesity Plan HD MWF Maintain hemodynamics stable. Avoid hypotension. Patient not on ACEI/ARB due to recent FELIPE. on midodrine pre HD Monitor Input/Output, daily weights and renal function with basic metabolic panel on phos binders PRBC as needed. started IV iron. on weekly aranesp vit d Dose meds/antibiotics for reduced GFR. Avoid fleets enema/magnesium based l axatives. Avoid nephrotoxins/NSAIDs/ iodinated contrast (unless needed emergently) Glycemic control Further work up/management as per primary team SW for outpt hd placement. can f/up as outpt for renal recovery. stable for d/c from renal perspective once arranged for outpt HD. Av access will be planned later as outpt if no renal recovery in 3 months s: seen and examined no complaints Physical Examination: General Appearance: Comfortable, in no acute respiratory distress, co-operative . morbid obese Vitals reviewed and noted as below Head; Atraumatic, normocephalic ENT: no ulcers no thrush. Tongue is midline. Oropharynx: no rash or ulcers. EYES: Pupils are equal, round and reactive to light accommodation. Eye muscles and extraocular movement intact. Sclera is anicteric. Neck; supple no lymphadenopathy, no thyromegaly or bruit Lungs: Normal respiratory rate/effort. Breath sounds bilateral reduced at bases Heart: Normal rate. s1s2 normal. No rub or gallop. Extremities: 3+ edema. Neurological: Patient is alert, awake and oriented to person, place and time. No focal deficit. Strength bilateral appropriate and equal Skin: Warm and dry. Normal turgor. spider angioma rash upper chest. Palpitation: Normal elasticity for age Abdomen: Abdomen is soft. Bowel sounds +. There is no abdominal tenderness, no guarding/rigidity no organomegaly. limited due to obesity and abd wall edema Psych: normal insight and normal affect/mood MSK: lymphedemaouts changes b/l LE ext : kidney or bladder not palpable. has access as permacath Labs/imaging reviewed. Past medical history, past surgical history, family history, social history, allergy reviewed and noted as below Family hx: no hx of CKD. Rest non-contributory fena 0.3% intra-ab lymphadenopathy Objective - Vital Signs/Intake and Output Vital Signs (last 24 hours): Temp Pulse Resp BP Pulse Ox 98.6 F 84 18 103/46 L 96 04/14/18 06:00 04/14/18 06:00 04/14/18 06:00 04/14/18 06:00 04/14/18 06:00 Intake and Output: 04/14/18 04/14/18 06:59 18:59 Intake Total 240 Balance 240 - Medications Medications: Current Medications Acetaminophen (Tylenol 325mg Tab) 650 mg PO Q6 PRN PRN Reason: Fever >100.4 F Last Admin: 04/13/18 05:56 Dose: 650 mg Albuterol/Ipratropium (Duoneb 3 Mg/0.5 Mg (3 Ml) Ud) 3 ml IH [id number] MAKAYLA Last Admin: 04/14/18 07:54 Dose: 3 ml Albuterol/Ipratropium (Duoneb 3 Mg/0.5 Mg (3 Ml) Ud) 3 ml IH Q2H PRN PRN Reason: Shortness of Breath Last Admin: 04/10/18 23:56 Dose: 3 ml Alprazolam (Xanax) 0.25 mg PO TID PRN; Protocol PRN Reason: Anxiety Last Admin: 04/12/18 22:31 Dose: 0.25 mg Darbepoetin Fletcher (Aranesp) 150 mcg IVP QWK [facility] Last Admin: 04/14/18 11:54 Dose: 150 mcg Ergocalciferol (Drisdol 50,000 Intl Units Cap) 1 cap PO Q7D [facility] Last Admin: 04/08/18 08:12 Dose: 1 cap Heparin Sodium (Porcine) (Heparin) 5,000 units SC Q8 [facility]; Protocol Last Admin: 04/14/18 06:16 Dose: 5,000 units Iron Sucrose 100 mg/ Sodium (Chloride) 105 mls @ 210 mls/hr IVPB DAILY [facility] Stop: 04/15/18 10:01 Last Admin: 04/14/18 11:54 Dose: 210 mls/hr Cefepime HCl (Maxipime 2gm) 2 gm in 100 mls @ 100 mls/hr IVPB DAILY [facility]; [facility] col Stop: 04/18/18 09:01 Last Admin: 04/14/18 09:50 Dose: 100 mls/hr Midodrine (Proamatine) 10 mg PO MWF [facility] Last Admin: 04/13/18 10:00 Dose: Not Given Oseltamivir Phosphate (Tamiflu Cap) 30 mg PO DAILY [facility]; Protocol Last Admin: 04/14/18 09:51 Dose: 30 mg Pantoprazole Sodium (Protonix Ec Tab) 40 mg PO 0600,1600 [facility] Last Admin: 04/14/18 06:16 Dose: 40 mg Sevelamer HCl (Renagel) 800 mg PO TID [facility] Last Admin: 04/14/18 09:51 Dose: 800 mg Spironolactone (Aldactone) 50 mg PO DAILY [facility] Last Admin: 04/14/18 11:53 Dose: 50 mg Trazodone HCl (Desyrel) 100 mg PO HS [facility] Last Admin: 04/13/18 22:55 Dose: 100 mg Vitamin B Complex/Vit C/Folic Acid (Nephro-Bhupinder) 1 tab PO 0800 [facility] Last Admin: 04/14/18 09:51 Dose: 1 tab - Labs Labs: 04/14/18 06:00 04/14/18 06:00 PT 13.2 SECONDS (9.4-12.5) H 04/03/18 15:44 INR 1.15 04/03/18 15:44 APTT 30.7 Seconds (25.1-36.5) 04/03/18 15:44
[2018-04-15] MEDS: Albuterol-Ipratrop 3 mg / 0.5 (3 ml) UD IH SCH ×4 (01:49→19:36)
--- NOTE | 2018-04-15 02:51 | PN ---
DATE: 04/14/2018 SUBJECTIVE: The patient is in bed, in no acute distress. Nontoxic. The patient was seen earlier this morning. PHYSICAL EXAMINATION: VITAL SIGNS: Temperature is 98, blood pressure is 115/60, respiratory rate of 20. HEENT: Unremarkable. NECK: Supple. LUNGS: Decreased breath sounds. HEART: Normal S1, S2. ABDOMEN: Soft. LABORATORY EXAMINATION: Reveals white count of 5, hemoglobin of 8, BUN of 35, creatinine of 3.4. Urinalysis is noted. Microbiology is reviewed. Review of orders are noted. ASSESSMENT AND PLAN: A 52-year-old female with new onset of thirst, rule out sepsis, source to be determined, chronic lymphedema of lower extremity. The patient's fever has subsided. Blood cultures, no growth. Influenza is positive. The patient was started on Tamiflu. We will check on the urine culture, on cefepime 01/16. Vancomycin was given one dose. We will follow with you. Orion Thompson MD
[2018-04-15] MEDS: Pantoprazole 40 mg EC Tab PO SCH ×2 (08:43→18:10)
[2018-04-15] MEDS: Multivitamin Vitamin B Complex (Nephro-Vite) Tab PO SCH (10:01)
[2018-04-15] MEDS: Nystatin 100,000 Units/gm Topical Pow(15 gm) TOP SCH ×2 (10:02→18:11)
[2018-04-15] MEDS: Cefepime IV 2 gm in NS 2 GM/100 ML BAG IVPB SCH (10:04)
--- NOTE | 2018-04-15 13:12 | CP.PCM.PN ---
<Nhung Anne - Last Filed: 04/15/18 13:00> Subjective - Date & Time of Evaluation Date of Evaluation: 04/15/18 Time of Evaluation: 09:42 - Subjective Subjective: Nhung Anne PGY1 Hospital Progress Note Patient seen and examined at bedside this morning. No acute events reported overnight. Resting comfortably in bed. Offers no complaints today. Objective - Vital Signs/Intake and Output Vital Signs (last 24 hours): Temp Pulse Resp BP Pulse Ox 97.8 F 84 18 101/50 L 95 04/14/18 23:26 04/14/18 23:26 04/14/18 23:26 04/14/18 23:26 04/14/18 23:26 Intake and Output: 04/15/18 04/15/18 06:59 18:59 Intake Total 180 Balance 180 - Medications Medications: Current Medications Acetaminophen (Tylenol 325mg Tab) 650 mg PO Q6 PRN PRN Reason: Fever >100.4 F Last Admin: 04/13/18 05:56 Dose: 650 mg Albuterol/Ipratropium (Duoneb 3 Mg/0.5 Mg (3 Ml) Ud) 3 ml IH [id number] MAKAYLA Last Admin: 04/15/18 07:40 Dose: 3 ml Albuterol/Ipratropium (Duoneb 3 Mg/0.5 Mg (3 Ml) Ud) 3 ml IH Q2H PRN PRN Reason: Shortness of Breath Last Admin: 04/10/18 23:56 Dose: 3 ml Alprazolam (Xanax) 0.25 mg PO TID PRN; Protocol PRN Reason: Anxiety Last Admin: 04/12/18 22:31 Dose: 0.25 mg Darbepoetin Fletcher (Aranesp) 150 mcg IVP QWK MAKAYLA Last Admin: 04/14/18 11:54 Dose: 150 mcg Ergocalciferol (Drisdol 50,000 Intl Units Cap) 1 cap PO Q7D MAKAYLA Last Admin: 04/08/18 08:12 Dose: 1 cap Heparin Sodium (Porcine) (Heparin) 5,000 units SC Q8 MAKAYLA; Protocol Last Admin: 04/15/18 06:17 Dose: 5,000 units Cefepime HCl (Maxipime 2gm) 2 gm in 100 mls @ 100 mls/hr IVPB DAILY MAKAYLA; Protocol Stop: 04/18/18 09:01 Last Admin: 04/15/18 10:04 Dose: 100 mls/hr Midodrine (Proamatine) 10 mg PO MWF [facility] Last Admin: 04/13/18 10:00 Dose: Not Given Nystatin (Nystop Topical Powder) 0 gm TOP BID [facility] Last Admin: 04/15/18 10:02 Dose: 1 appl Oseltamivir Phosphate (Tamiflu Cap) 30 mg PO DAILY [facility]; Protocol Last Admin: 04/15/18 10:01 Dose: 30 mg Pantoprazole Sodium (Protonix Ec Tab) 40 mg PO 0600,1600 [facility] Last Admin: 04/15/18 08:43 Dose: 40 mg Sevelamer HCl (Renagel) 800 mg PO TID [facility] Last Admin: 04/15/18 10:04 Dose: 800 mg Spironolactone (Aldactone) 50 mg PO DAILY [facility] Last Admin: 04/15/18 10:01 Dose: 50 mg Trazodone HCl (Desyrel) 100 mg PO HS [facility] Last Admin: 04/14/18 22:57 Dose: 100 mg Vitamin B Complex/Vit C/Folic Acid (Nephro-Bhupinder) 1 tab PO 0800 [facility] Last Admin: 04/15/18 10:01 Dose: 1 tab - Labs Labs: 04/14/18 06:00 04/14/18 06:00 PT 13.2 SECONDS (9.4-12.5) H 04/03/18 15:44 INR 1.15 04/03/18 15:44 APTT 30.7 Seconds (25.1-36.5) 04/03/18 15:44 - Additional Findings Additional findings: - Constitutional Appears: No Acute Distress - Head Exam Head Exam: NORMAL INSPECTION, ATRAUMATIC - Eye Exam Eye Exam: EOMI, PERRL - ENT Exam ENT Exam: Mucous Membranes Moist, Normal Exam - Neck Exam Neck exam: Positive for: Normal Inspection - Respiratory Exam Respiratory Exam: Clear to Auscultation Bilateral. absent: Rales, Rhonchi, Wheezes, respiratory distress - Cardiovascular Exam Cardiovascular Exam: Regular rhythm, +S1, +S2. absent: Systolic Murmur - GI/Abdominal Exam GI & Abdominal Exam: Soft. Bowel sounds heard in all 4 quadrants absent: Distended, Guarding, Rebound, Tenderness - Extremities Exam Extremities exam: Positive for: pedal edema Additional comments: 2+ edema noted on both legs -no draining/weeping/pus noted on lower extremities - Neurological Exam Neurological exam: Alert, CN II-XII Intact, Oriented x3 - Skin Skin Exam: Dry, Intact and Pallor Assessment and Plan - Assessment and Plan (Free Text) Assessment: Patient is a 52 yo F with past medical history liver failure, morbid obesity, and EtOH abuse presents to [facility] for worsening weakness and admitted for management of anemia and FELIPE with metabolic acidosis. Focusing on outpatient HD and PT at this time. Plan: Fever -no fever overnight/today, no WBC -positive flu type A, tamiflu day 3 out of 5 -cefepime day 3 -CXR showed moderate cardiomegaly, vascular congestion -blood culture shows no growth after 48 hours -urine culture growing gram neg and yeast, f/u sensitivities. Patient asymptomatic -procalcitonin mildly elevated Acute renal failure - improved -on HD MWF -Working with trimming caser for outpatient HD setup -Renal US is unremarkable -Renagel 800 mg PO TID -Strict I's and O's -Nephrology on consult, Dr. Salmeron Chronic lymphedema of B/L legs -podiatry on consult, no further recommendations, local wound care for now - not currently draining/weeping -repeat ext US shows possible right SFA occlusive disease, limited study due to artifact -wound culture grew Enterobacter Cloacae, E. faecalis - superficial bacteria colonizers, repeat wound culture -PT recommends [facility]ENNA -daily PT rehab Microcytic anemia -s/p total 11 units pRBCs, 2 FFPs -oral iron started -endoscopy showed 3 non bleeding gastric ulcers, largest one 8mm -iron studies shows likely iron deficiency -Head CT unremarkable -CTAP shows adenopathy of the hepatic gastric ligament -GI on consult, Dr. Melo Elevated BNP -BNP [id number] on admission -Echo showed EF of 68%, mild TR/MR, mild pulm HTN, borderline LVH Depression -Psych on consult, Dr. Ramos -continue trazodone PPX/Diet -protonix, heparin -renal diet Patient seen and case discussed with attending, Dr. Ross <Miko Ross - Last Filed: 04/15/18 13:52> Objective - Vital Signs/Intake and Output Vital Signs (last 24 hours): Temp Pulse Resp BP Pulse Ox 97.8 F 84 18 101/50 L 95 04/14/18 23:26 04/14/18 23:26 04/14/18 23:26 04/14/18 23:26 04/14/18 23:26 Intake and Output: 04/15/18 04/15/18 06:59 18:59 Intake Total 180 Balance 180 - Medications Medications: Current Medications Acetaminophen (Tylenol 325mg Tab) 650 mg PO Q6 PRN PRN Reason: Fever >100.4 F Last Admin: 04/13/18 05:56 Dose: 650 mg Albuterol/Ipratropium (Duoneb 3 Mg/0.5 Mg (3 Ml) Ud) 3 ml IH [id number] MAKAYLA Last Admin: 04/15/18 13:27 Dose: 3 ml Albuterol/Ipratropium (Duoneb 3 Mg/0.5 Mg (3 Ml) Ud) 3 ml IH Q2H PRN PRN Reason: Shortness of Breath Last Admin: 04/10/18 23:56 Dose: 3 ml Alprazolam (Xanax) 0.25 mg PO TID PRN; Protocol PRN Reason: Anxiety Last Admin: 04/12/18 22:31 Dose: 0.25 mg Darbepoetin Fletcher (Aranesp) 150 mcg IVP QWK MAKAYLA Last Admin: 04/14/18 11:54 Dose: 150 mcg Ergocalciferol (Drisdol 50,000 Intl Units Cap) 1 cap PO Q7D MAKAYLA Last Admin: 04/08/18 08:12 Dose: 1 cap Ferrous Sulfate (Feosol) 324 mg PO WM [facility] Heparin Sodium (Porcine) (Heparin) 5,000 units SC Q8 MAKAYLA; Protocol Last Admin: 04/15/18 06:17 Dose: 5,000 units Cefepime HCl (Maxipime 2gm) 2 gm in 100 mls @ 100 mls/hr IVPB DAILY [facility]; Protocol Stop: 04/18/18 09:01 Last Admin: 04/15/18 10:04 Dose: 100 mls/hr Midodrine (Proamatine) 10 mg PO MWF [facility] Last Admin: 04/13/18 10:00 Dose: Not Given Nystatin (Nystop Topical Powder) 0 gm TOP BID [facility] Last Admin: 04/15/18 10:02 Dose: 1 appl Oseltamivir Phosphate (Tamiflu Cap) 30 mg PO DAILY [facility]; Protocol Last Admin: 04/15/18 10:01 Dose: 30 mg Pantoprazole Sodium (Protonix Ec Tab) 40 mg PO 0600,1600 [facility] Last Admin: 04/15/18 08:43 Dose: 40 mg Sevelamer HCl (Renagel) 800 mg PO TID [facility] Last Admin: 04/15/18 10:04 Dose: 800 mg Spironolactone (Aldactone) 50 mg PO DAILY [facility] Last Admin: 04/15/18 10:01 Dose: 50 mg Trazodone HCl (Desyrel) 100 mg PO HS [facility] Last Admin: 04/14/18 22:57 Dose: 100 mg Vitamin B Complex/Vit C/Folic Acid (Nephro-Bhupinder) 1 tab PO 0800 [facility] Last Admin: 04/15/18 10:01 Dose: 1 tab - Labs Labs: 04/14/18 06:00 04/14/18 06:00 PT 13.2 SECONDS (9.4-12.5) H 04/03/18 15:44 INR 1.15 04/03/18 15:44 APTT 30.7 Seconds (25.1-36.5) 04/03/18 15:44 Attending/Attestation - Attestation I have personally seen and examined this patient.: Yes I have fully participated in the care of the patient.: Yes I have reviewed all pertinent clinical information, including history, physical exam and plan: Yes Notes (Text): 04/15/18 13:50 52 year old female with past medical history of liver failures, alcohol abuse, depression and gastric bypass surgery who presented with generalized weakness, fatigue and dark stools. She was found to have acute anemia and severe metabolic acidosis and acute renal failure. She is s/p multiple PRBC transfusions. She is s/p EGD which showed multiple gastric ulcers. She is on protonix. H/H has been stable. She is on po iron. Continue with hemodialysis as per nephrology. Patient will need outpatient dialysis set up which CMx/Ander is working on. Podiatry is following for bilateral LE swelling and weeping. Continue with local wound care. Wound culture was positive for Enterobacter Clocae and Enterococcus Faecalis. Patient has been afebrile x 48 hrs. Workup was positive for flu for which she is on tamiflu. She is also on cefepime. ID is following. PT evaluation was appreciated who recommended [facility]. Will discuss with CMx/Sw. Miko Ross MD Hospitalist.
--- NOTE | 2018-04-15 13:50 | PN ---
DATE: 04/15/2018 SUBJECTIVE: The patient is in bed, in no acute distress, nontoxic. PHYSICAL EXAMINATION: VITAL SIGNS: Temperature is 97, blood pressure is 101/50, respiratory rate of 20. HEENT: Unremarkable. NECK: Supple. LUNGS: Decreased breath sounds. HEART: Normal S1, S2. ABDOMEN: Soft, nontender. LABORATORY DATA: The urine culture is gram-negative golden and yeast and the blood cultures are negative. MEDICATION: The patient is on cefepime and Tamiflu. ASSESSMENT AND PLAN: A 52-year-old female, seen earlier today with new onset of systemic inflammatory response syndrome with gram-negative golden in the urine with chronic lymphedema of lower extremity, the patient with influenza positive, on Tamiflu. Today is day #3 of 5 days of Tamiflu and the gram-negative golden in the urine with day #3 of cefepime. Awaiting for identification of the gram-negative golden in the urine and we will make further recommendations. Orion Thompson MD
[2018-04-15] MEDS: Ergocalciferol 50,000 Intl Units Cap PO SCH (14:05)
--- NOTE | 2018-04-15 14:54 | CP.PCM.PN ---
<Дмитрий Finney - Last Filed: 04/15/18 16:00> Subjective - Date & Time of Evaluation Date of Evaluation: 04/15/18 Time of Evaluation: 14:52 - Subjective Subjective: Podiatry Progress Note for Dr. Rice 52F patient seen and evaluated at bedside for b/l edema and L heel ulceration. Resting comfortably. Denies any pain to b/l lower extremities. Denies N/V/F. Objective - Vital Signs/Intake and Output Vital Signs (last 24 hours): Temp Pulse Resp BP Pulse Ox 97.8 F 84 18 101/50 L 95 04/14/18 23:26 04/14/18 23:26 04/14/18 23:26 04/14/18 23:26 04/14/18 23:26 Intake and Output: 04/15/18 04/15/18 06:59 18:59 Intake Total 180 Balance 180 - Medications Medications: Current Medications Acetaminophen (Tylenol 325mg Tab) 650 mg PO Q6 PRN PRN Reason: Fever >100.4 F Last Admin: 04/13/18 05:56 Dose: 650 mg Albuterol/Ipratropium (Duoneb 3 Mg/0.5 Mg (3 Ml) Ud) 3 ml IH [id number] MAKAYLA Last Admin: 04/15/18 13:27 Dose: 3 ml Albuterol/Ipratropium (Duoneb 3 Mg/0.5 Mg (3 Ml) Ud) 3 ml IH Q2H PRN PRN Reason: Shortness of Breath Last Admin: 04/10/18 23:56 Dose: 3 ml Alprazolam (Xanax) 0.25 mg PO TID PRN; Protocol PRN Reason: Anxiety Last Admin: 04/12/18 22:31 Dose: 0.25 mg Darbepoetin Fletcher (Aranesp) 150 mcg IVP QWK MAKAYLA Last Admin: 04/14/18 11:54 Dose: 150 mcg Ergocalciferol (Drisdol 50,000 Intl Units Cap) 1 cap PO Q7D MAKAYLA Last Admin: 04/15/18 14:05 Dose: 1 cap Ferrous Sulfate (Feosol) 324 mg PO WM MAKAYLA Heparin Sodium (Porcine) (Heparin) 5,000 units SC Q8 MAKAYLA; Protocol Last Admin: 04/15/18 14:05 Dose: 5,000 units Cefepime HCl (Maxipime 2gm) 2 gm in 100 mls @ 100 mls/hr IVPB DAILY [facility]; Protocol Stop: 04/18/18 09:01 Last Admin: 04/15/18 10:04 Dose: 100 mls/hr Midodrine (Proamatine) 10 mg PO MWF [facility] Last Admin: 04/13/18 10:00 Dose: Not Given Nystatin (Nystop Topical Powder) 0 gm TOP BID [facility] Last Admin: 04/15/18 10:02 Dose: 1 appl Oseltamivir Phosphate (Tamiflu Cap) 30 mg PO DAILY [facility]; Protocol Last Admin: 04/15/18 10:01 Dose: 30 mg Pantoprazole Sodium (Protonix Ec Tab) 40 mg PO 0600,1600 [facility] Last Admin: 04/15/18 08:43 Dose: 40 mg Sevelamer HCl (Renagel) 800 mg PO TID [facility] Last Admin: 04/15/18 14:05 Dose: 800 mg Spironolactone (Aldactone) 50 mg PO DAILY [facility] Last Admin: 04/15/18 10:01 Dose: 50 mg Trazodone HCl (Desyrel) 100 mg PO HS [facility] Last Admin: 04/14/18 22:57 Dose: 100 mg Vitamin B Complex/Vit C/Folic Acid (Nephro-Bhupinder) 1 tab PO 0800 [facility] Last Admin: 04/15/18 10:01 Dose: 1 tab - Labs Labs: 04/14/18 06:00 04/14/18 06:00 PT 13.2 SECONDS (9.4-12.5) H 04/03/18 15:44 INR 1.15 04/03/18 15:44 APTT 30.7 Seconds (25.1-36.5) 04/03/18 15:44 - Constitutional Appears: Non-toxic, No Acute Distress - Head Exam Head Exam: ATRAUMATIC, NORMOCEPHALIC - Extremities Exam Additional comments: Vascular: DP/PT non palpable secondary to edema, CFT < 3 seconds, TG warm to warm, no pedal hair present, +2 pitting edema to bilateral lower extremities beginning at the tibial tuberosity and extending distally to the digits Ortho: Tenderness to palpation of b/l lower extremities, MMT 4/5 Neuro: Gross sensation intact, protective sensation diminished Derm: Friable skin noted to posterior aspect of b/l legs, no purulence, no tunneling, no tracking, no probe to bone. Superficial ulceration noted at the plantar aspect of the left heel measuring approximately 1.5 cm x 1.0 cm x .1 cm, with granular base - Neurological Exam Neurological Exam: Alert, Awake, Oriented x3 - Psychiatric Exam Psychiatric exam: Normal Affect, Normal Mood Assessment and Plan - Assessment and Plan (Free Text) Assessment: 52F with b/l LE edema and left heel ulcer Plan: Patient seen and evaluated Discussed in detail with Dr. Rice Afebrile, absent leukocytosis B/L LE US; no evidence of DVT to bilateral lower extremities B/l LE arterial US ordered: Right SFA occlusive disease Wound culture take from L heel; e cloacae, e faecalis - heavy growth Local wound care: L LE ulceration cleansed with sterile saline and dressed with optifoam Patient informed to keep her legs elevated at all times to help control the swelling ID on board; recs appreciated, continue medications Will continue to follow the patient while in house, stable for discharge from podiatry point of view <Darline Rice - Last Filed: 04/15/18 18:07> Objective - Vital Signs/Intake and Output Vital Signs (last 24 hours): Temp Pulse Resp BP Pulse Ox 98.6 F 80 20 107/54 L 95 04/15/18 14:00 04/15/18 14:00 04/15/18 14:00 04/15/18 14:00 04/15/18 14:00 Intake and Output: 04/15/18 04/15/18 06:59 18:59 Intake Total 180 Balance 180 - Medications Medications: Current Medications Acetaminophen (Tylenol 325mg Tab) 650 mg PO Q6 PRN PRN Reason: Fever >100.4 F Last Admin: 04/13/18 05:56 Dose: 650 mg Albuterol/Ipratropium (Duoneb 3 Mg/0.5 Mg (3 Ml) Ud) 3 ml IH [id number] MAKAYLA Last Admin: 04/15/18 13:27 Dose: 3 ml Albuterol/Ipratropium (Duoneb 3 Mg/0.5 Mg (3 Ml) Ud) 3 ml IH Q2H PRN PRN Reason: Shortness of Breath Last Admin: 04/10/18 23:56 Dose: 3 ml Alprazolam (Xanax) 0.25 mg PO TID PRN; Protocol PRN Reason: Anxiety Last Admin: 04/12/18 22:31 Dose: 0.25 mg Darbepoetin Fletcher (Aranesp) 150 mcg IVP QWK MAKAYLA Last Admin: 04/14/18 11:54 Dose: 150 mcg Ergocalciferol (Drisdol 50,000 Intl Units Cap) 1 cap PO Q7D MAKAYLA Last Admin: 04/15/18 14:05 Dose: 1 cap Ferrous Sulfate (Feosol) 324 mg PO WM [facility] Heparin Sodium (Porcine) (Heparin) 5,000 units SC Q8 [facility]KAYLA; Protocol Last Admin: 04/15/18 14:05 Dose: 5,000 units Cefepime HCl (Maxipime 2gm) 2 gm in 100 mls @ 100 mls/hr IVPB DAILY [facility]; Protocol Stop: 04/18/18 09:01 Last Admin: 04/15/18 10:04 Dose: 100 mls/hr Midodrine (Proamatine) 10 mg PO MWF [facility] Last Admin: 04/13/18 10:00 Dose: Not Given Nystatin (Nystop Topical Powder) 0 gm TOP BID [facility] Last Admin: 04/15/18 10:02 Dose: 1 appl Oseltamivir Phosphate (Tamiflu Cap) 30 mg PO DAILY [facility]; Protocol Last Admin: 04/15/18 10:01 Dose: 30 mg Pantoprazole Sodium (Protonix Ec Tab) 40 mg PO 0600,1600 [facility] Last Admin: 04/15/18 08:43 Dose: 40 mg Sevelamer HCl (Renagel) 800 mg PO TID [facility]LA Last Admin: 04/15/18 14:05 Dose: 800 mg Spironolactone (Aldactone) 50 mg PO DAILY [facility] Last Admin: 04/15/18 10:01 Dose: 50 mg Trazodone HCl (Desyrel) 100 mg PO HS [facility] Last Admin: 04/14/18 22:57 Dose: 100 mg Vitamin B Complex/Vit C/Folic Acid (Nephro-Bhupinder) 1 tab PO 0800 [facility] Last Admin: 04/15/18 10:01 Dose: 1 tab - Labs Labs: 04/14/18 06:00 04/14/18 06:00 PT 13.2 SECONDS (9.4-12.5) H 04/03/18 15:44 INR 1.15 04/03/18 15:44 APTT 30.7 Seconds (25.1-36.5) 04/03/18 15:44 Attending/Attestation - Attestation I have personally seen and examined this patient.: Yes I have fully participated in the care of the patient.: Yes I have reviewed all pertinent clinical information, including history, physical exam and plan: Yes
[2018-04-16] MEDS: Albuterol-Ipratrop 3 mg / 0.5 (3 ml) UD IH SCH ×4 (01:27→19:53)
[2018-04-16] MEDS: Pantoprazole 40 mg EC Tab PO SCH ×2 (05:11→17:50)
[2018-04-16 08:11] LABS: BASO # 0.03 K/mm3 (0.0-2.0); BASO % 0.7 % (0.0-3.0); EOS # 0.4 (0.0-0.7); EOS % 9.3 % (1.5-5.0); GRAN # 2.81 (1.4-6.5); GRAN % 62.1 % (50.0-68.0); HEMOGLOBIN 8.7 g/dL (12.0-16.0); LYMPH # 0.9 (1.2-3.4); LYMPH % 19.5 % (22.0-35.0); MEAN CELL VOLUME 89.2 fl (80.0-105.0); MEAN CORPUSCULAR HEMOGLOBIN 27.7 pg (25.0-35.0); MEAN CORPUSCULAR HGB CONC 31.1 g/dl (31.0-37.0); MEAN PLATELET VOLUME 9.2 fl (7.0-11.0); MONO # 0.4 (0.1-0.6); MONO % 8.4 % (1.0-6.0); RBC 3.14 10^6/uL (3.5-6.1); RED CELL DISTRIBUTION WIDTH 21.5 % (11.5-14.5); WHITE BLOOD COUNT 4.5 10^3/uL (4.5-11.0)
[2018-04-16] MEDS: Darbepoetin Alfa 100 mcg/ml Inj IVP SCH (08:56)
[2018-04-16] MEDS ORDERED: Iron Complex Polysacch 150mg Cap PO SCH (10:00)
[2018-04-16 10:14] LABS: ALB/GLOB RATIO 0.7 (1.1-1.8); ALBUMIN 2.1 g/dL (3.0-4.8); CALCIUM 7.4 mg/dL (8.4-10.5)
[2018-04-16] MEDS: Nystatin 100,000 Units/gm Topical Pow(15 gm) TOP SCH ×2 (11:07→17:50)
--- NOTE | 2018-04-16 12:55 | CP.PCM.PN ---
<Nhung Anne - Last Filed: 04/16/18 13:01> Subjective - Date & Time of Evaluation Date of Evaluation: 04/16/18 Time of Evaluation: 10:46 - Subjective Subjective: Nhung Anne PGY1 Hospital Progress Note Patient seen and examined at bedside this morning. No acute events reported overnight. Offers no complaints today. Under evaluation for outpatient HD. Objective - Vital Signs/Intake and Output Vital Signs (last 24 hours): Temp Pulse Resp BP Pulse Ox 98 F 82 20 110/64 95 04/15/18 22:05 04/15/18 22:05 04/15/18 22:05 04/15/18 22:05 04/15/18 22:05 Intake and Output: 04/16/18 04/16/18 06:59 18:59 Intake Total 540 Output Total 350 Balance 190 - Medications Medications: Current Medications Acetaminophen (Tylenol 325mg Tab) 650 mg PO Q6 PRN PRN Reason: Fever >100.4 F Last Admin: 04/13/18 05:56 Dose: 650 mg Albuterol/Ipratropium (Duoneb 3 Mg/0.5 Mg (3 Ml) Ud) 3 ml IH [id number] MAKAYLA Last Admin: 04/16/18 07:40 Dose: 3 ml Albuterol/Ipratropium (Duoneb 3 Mg/0.5 Mg (3 Ml) Ud) 3 ml IH Q2H PRN PRN Reason: Shortness of Breath Last Admin: 04/10/18 23:56 Dose: 3 ml Alprazolam (Xanax) 0.25 mg PO TID PRN; Protocol PRN Reason: Anxiety Last Admin: 04/16/18 05:11 Dose: 0.25 mg Darbepoetin Fletcher (Aranesp) 150 mcg IVP QWK MAKAYLA Last Admin: 04/16/18 08:56 Dose: 150 mcg Ergocalciferol (Drisdol 50,000 Intl Units Cap) 1 cap PO Q7D MAKAYLA Last Admin: 04/15/18 14:05 Dose: 1 cap Ferrous Sulfate (Feosol) 324 mg PO WM [facility] Last Admin: 04/16/18 11:07 Dose: Not Given Heparin Sodium (Porcine) (Heparin) 5,000 units SC Q8 MAKAYLA; Protocol Last Admin: 04/16/18 05:12 Dose: 5,000 units Cefepime HCl (Maxipime 2gm) 2 gm in 100 mls @ 100 mls/hr IVPB DAILY [facility]; Protocol Stop: 04/18/18 09:01 Last Admin: 04/15/18 10:04 Dose: 100 mls/hr Midodrine (Proamatine) 10 mg PO MWF [facility] Last Admin: 04/13/18 10:00 Dose: Not Given Nystatin (Nystop Topical Powder) 0 gm TOP BID [facility] Last Admin: 04/16/18 11:07 Dose: Not Given Oseltamivir Phosphate (Tamiflu Cap) 30 mg PO DAILY [facility]; Protocol Last Admin: 04/15/18 10:01 Dose: 30 mg Pantoprazole Sodium (Protonix Ec Tab) 40 mg PO 0600,1600 [facility] Last Admin: 04/16/18 05:11 Dose: 40 mg Sevelamer HCl (Renagel) 800 mg PO TID [facility] Last Admin: 04/16/18 11:07 Dose: Not Given Spironolactone (Aldactone) 50 mg PO DAILY [facility] Last Admin: 04/15/18 10:01 Dose: 50 mg Trazodone HCl (Desyrel) 100 mg PO HS [facility] Last Admin: 04/15/18 22:41 Dose: 100 mg Vitamin B Complex/Vit C/Folic Acid (Nephro-Bhupinder) 1 tab PO 0800 [facility] Last Admin: 04/15/18 10:01 Dose: 1 tab - Labs Labs: 04/16/18 08:00 04/16/18 08:00 PT 13.2 SECONDS (9.4-12.5) H 04/03/18 15:44 INR 1.15 04/03/18 15:44 APTT 30.7 Seconds (25.1-36.5) 04/03/18 15:44 - Additional Findings Additional findings: - Constitutional Appears: No Acute Distress - Head Exam Head Exam: NORMAL INSPECTION, ATRAUMATIC - Eye Exam Eye Exam: EOMI, PERRL - ENT Exam ENT Exam: Mucous Membranes Moist, Normal Exam - Neck Exam Neck exam: Positive for: Normal Inspection - Respiratory Exam Respiratory Exam: Clear to Auscultation Bilateral. absent: Rales, Rhonchi, Wheezes, respiratory distress - Cardiovascular Exam Cardiovascular Exam: Regular rhythm, +S1, +S2. absent: Systolic Murmur - GI/Abdominal Exam GI & Abdominal Exam: Soft. Bowel sounds heard in all 4 quadrants absent: Distended, Guarding, Rebound, Tenderness - Extremities Exam Extremities exam: Positive for: pedal edema Additional comments: 2+ edema noted on both legs -no draining/weeping/pus noted on lower extremities - Neurological Exam Neurological exam: Alert, CN II-XII Intact, Oriented x3 - Skin Skin Exam: Dry, Intact and Pallor Assessment and Plan - Assessment and Plan (Free Text) Assessment: Patient is a 52 yo F with past medical history liver failure, morbid obesity, and EtOH abuse presents to [facility] for worsening weakness and admitted for management of anemia and FELIPE with metabolic acidosis. Focusing on outpatient HD and PT at this time. Plan: Acute renal failure - improved -on HD MWF -Working with telephonic nurse case manager for outpatient HD setup, currently under evaluation -Renal US is unremarkable -Renagel 800 mg PO TID -Strict I's and O's -Nephrology on consult, Dr. Salmeron Fever - resolved -afebrile > 48hours -positive flu type A, tamiflu day 4 out of 5 -urine culture growing gram neg and yeast, will change antibiotic. Patient asymptomatic -CXR showed moderate cardiomegaly, vascular congestion -blood culture shows no growth after 3 days -procalcitonin mildly elevated Chronic lymphedema of B/L legs -podiatry on consult, no further recommendations, local wound care for now - not currently draining/weeping -repeat ext US shows possible right SFA occlusive disease, limited study due to artifact -wound culture grew Enterobacter Cloacae, E. faecalis - superficial bacteria colonizers, repeat wound culture -PT recommends JENNA -daily PT rehab Microcytic anemia -s/p total 11 units pRBCs, 2 FFPs -oral iron started -endoscopy showed 3 non bleeding gastric ulcers, largest one 8mm -iron studies shows likely iron deficiency -Head CT unremarkable -CTAP shows adenopathy of the hepatic gastric ligament -GI on consult, Dr. Melo Elevated BNP -BNP 40460 on admission -Echo showed EF of 68%, mild TR/MR, mild pulm HTN, borderline LVH Depression -Psych on consult, Dr. Ramos -continue trazodone PPX/Diet -protonix, heparin -renal diet Patient seen and case discussed with attending, Dr. Ross <Miko Ross - Last Filed: 04/16/18 17:39> Objective - Vital Signs/Intake and Output Vital Signs (last 24 hours): Temp Pulse Resp BP Pulse Ox 98.2 F 85 20 119/57 L 95 04/16/18 14:00 04/16/18 14:00 04/16/18 14:00 04/16/18 14:00 04/16/18 14:00 Intake and Output: 04/16/18 04/16/18 06:59 18:59 Intake Total 540 Output Total 350 Balance 190 - Medications Medications: Current Medications Acetaminophen (Tylenol 325mg Tab) 650 mg PO Q6 PRN PRN Reason: Fever >100.4 F Last Admin: 04/13/18 05:56 Dose: 650 mg Albuterol/Ipratropium (Duoneb 3 Mg/0.5 Mg (3 Ml) Ud) 3 ml IH [id number] MAKAYLA Last Admin: 04/16/18 13:44 Dose: 3 ml Albuterol/Ipratropium (Duoneb 3 Mg/0.5 Mg (3 Ml) Ud) 3 ml IH Q2H PRN PRN Reason: Shortness of Breath Last Admin: 04/10/18 23:56 Dose: 3 ml Alprazolam (Xanax) 0.25 mg PO TID PRN; Protocol PRN Reason: Anxiety Last Admin: 04/16/18 15:53 Dose: 0.25 mg Darbepoetin Fletcher (Aranesp) 150 mcg IVP QWK MAKAYLA Last Admin: 04/16/18 08:56 Dose: 150 mcg Ergocalciferol (Drisdol 50,000 Intl Units Cap) 1 cap PO Q7D MAKAYLA Last Admin: 04/15/18 14:05 Dose: 1 cap Ferrous Sulfate (Feosol) 324 mg PO WM [facility] Last Admin: 04/16/18 17:13 Dose: Not Given Heparin Sodium (Porcine) (Heparin) 5,000 units SC Q8 [facility]AYLA; Protocol Last Admin: 04/16/18 15:47 Dose: 5,000 units Meropenem/Sodium Chloride (Merrem Iv 500 Mg/Ns 50 Ml) 500 mg in 50 mls @ 100 mls/hr IVPB Q24H [facility]AYLA; Protocol Last Admin: 04/16/18 15:47 Dose: 100 mls/hr Midodrine (Proamatine) 10 mg PO MWF [facility] Last Admin: 04/16/18 15:46 Dose: 10 mg Nystatin (Nystop Topical Powder) 0 gm TOP BID [facility] Last Admin: 04/16/18 11:07 Dose: Not Given Oseltamivir Phosphate (Tamiflu Cap) 30 mg PO DAILY [facility]; Protocol Last Admin: 04/16/18 15:45 Dose: 30 mg Pantoprazole Sodium (Protonix Ec Tab) 40 mg PO 0600,1600 [facility] Last Admin: 04/16/18 05:11 Dose: 40 mg Sevelamer HCl (Renagel) 800 mg PO TID [facility] Last Admin: 04/16/18 15:47 Dose: 800 mg Spironolactone (Aldactone) 50 mg PO DAILY [facility] Last Admin: 04/16/18 15:46 Dose: 50 mg Trazodone HCl (Desyrel) 100 mg PO HS [facility] Last Admin: 04/15/18 22:41 Dose: 100 mg Vitamin B Complex/Vit C/Folic Acid (Nephro-Bhupinder) 1 tab PO 0800 [facility] Last Admin: 04/16/18 15:46 Dose: 1 tab - Labs Labs: 04/16/18 08:00 04/16/18 08:00 PT 13.2 SECONDS (9.4-12.5) H 04/03/18 15:44 INR 1.15 04/03/18 15:44 APTT 30.7 Seconds (25.1-36.5) 04/03/18 15:44 Attending/Attestation - Attestation I have personally seen and examined this patient.: Yes I have fully participated in the care of the patient.: Yes I have reviewed all pertinent clinical information, including history, physical exam and plan: Yes Notes (Text): 04/16/18 17:38 52 year old female with past medical history of liver failures, alcohol abuse, depression and gastric bypass surgery who presented with generalized weakness, fatigue and dark stools. She was found to have acute anemia and severe metabolic acidosis and acute renal failure. She is s/p multiple PRBC transfusions. She is s/p EGD which showed multiple gastric ulcers. She is on protonix. H/H has been stable. She is on po iron. Continue with hemodialysis as per nephrology. Patient will need outpatient dialysis set up which CMx/Sw is working on. Podiatry is following for bilateral LE swelling and weeping. Continue with local wound care. Wound culture was positive for Enterobacter Clocae and Enterococcus Faecalis. Ucx positive for Klebsiella. Antiobiotics switched to meropenem per ID. She is on tamiflu for influenza. PT evaluation was appreciated who recommended [facility]EN[facility]. Will follow up with CMx/Sw. Miko Ross MD Hospitalist.
--- NOTE | 2018-04-16 12:56 | CP.PCM.PN ---
Subjective - Date & Time of Evaluation Date of Evaluation: 04/16/18 Time of Evaluation: 12:55 - Subjective Subjective: Nephrology Consultation Note: Assessment: stable oligoanuric Acute Kidney Injury (N17.9) likely due to ATN, pre-renal state, intrasvasc hypovolemia, impaired renal perfusion, HD 04/05/18: first session anasarca severe symptomatic anemia due to GI bleed with gastric ulcers mild hyperkalemia and HAGMA, hyperphos hx of cirrhosis and etoh intra-ab lymphadenopathy morbid obesity Plan HD MWF Maintain hemodynamics stable. Avoid hypotension. Patient not on ACEI/ARB due to recent FELIPE. on midodrine pre HD Monitor Input/Output, daily weights and renal function with basic metabolic panel on phos binders, phos improved PRBC as needed. started IV iron. on weekly aranesp vit d Dose meds/antibiotics for reduced GFR. Avoid fleets enema/magnesium based laxatives. Avoid nephrotoxins/NSAIDs/ iodinated contrast (unless needed emergently) Glycemic control Further work up/management as per primary team SW for outpt hd placement. can f/up as outpt for renal recovery. stable for d/c from renal perspective once arranged for outpt HD. Av access will be planned later as outpt if no renal recovery in 3 months s: seen and examined no complaints Physical Examination: General Appearance: Comfortable, in no acute respiratory distress, co-operative . morbid obese Vitals reviewed and noted as below Head; Atraumatic, normocephalic ENT: no ulcers no thrush. Tongue is midline. Oropharynx: no rash or ulcers. EYES: Pupils are equal, round and reactive to light accommodation. Eye muscles and extraocular movement intact. Sclera is anicteric. Neck; supple no lymphadenopathy, no thyromegaly or bruit Lungs: Normal respiratory rate/effort. Breath sounds bilateral reduced at bases Heart: Normal rate. s1s2 normal. No rub or gallop. Extremities: 3+ edema. Neurological: Patient is alert, awake and oriented to person, place and time. No focal deficit. Strength bilateral appropriate and equal Skin: Warm and dry. Normal turgor. spider angioma rash upper chest. Palpitation: Normal elasticity for age Abdomen: Abdomen is soft. Bowel sounds +. There is no abdominal tenderness, no guarding/rigidity no organomegaly. limited due to obesity and abd wall edema Psych: normal insight and normal affect/mood MSK: lymphedemaouts changes b/l LE ext : kidney or bladder not palpable. has access as permacath Labs/imaging reviewed. Past medical history, past surgical history, family history, social history, allergy reviewed and noted as below Family hx: no hx of CKD. Rest non-contributory fena 0.3% intra-ab lymphadenopathy Objective - Vital Signs/Intake and Output Vital Signs (last 24 hours): Temp Pulse Resp BP Pulse Ox 98 F 82 20 110/64 95 04/15/18 22:05 04/15/18 22:05 04/15/18 22:05 04/15/18 22:05 04/15/18 22:05 Intake and Output: 04/16/18 04/16/18 06:59 18:59 Intake Total 540 Output Total 350 Balance 190 - Medications Medications: Current Medications Acetaminophen (Tylenol 325mg Tab) 650 mg PO Q6 PRN PRN Reason: Fever >100.4 F Last Admin: 04/13/18 05:56 Dose: 650 mg Albuterol/Ipratropium (Duoneb 3 Mg/0.5 Mg (3 Ml) Ud) 3 ml IH [id number] MAKAYLA Last Admin: 04/16/18 07:40 Dose: 3 ml Albuterol/Ipratropium (Duoneb 3 Mg/0.5 Mg (3 Ml) Ud) 3 ml IH Q2H PRN PRN Reason: Shortness of Breath Last Admin: 04/10/18 23:56 Dose: 3 ml Alprazolam (Xanax) 0.25 mg PO TID PRN; Protocol PRN Reason: Anxiety Last Admin: 04/16/18 05:11 Dose: 0.25 mg Darbepoetin Fletcher (Aranesp) 150 mcg IVP QWK MAKAYLA Last Admin: 04/16/18 08:56 Dose: 150 mcg Ergocalciferol (Drisdol 50,000 Intl Units Cap) 1 cap PO Q7D MAKAYLA Last Admin: 04/15/18 14:05 Dose: 1 cap Ferrous Sulfate (Feosol) 324 mg PO WM [facility] Last Admin: 04/16/18 11:07 Dose: Not Given Heparin Sodium (Porcine) (Heparin) 5,000 units SC Q8 MAKAYLA; Protocol Last Admin: 04/16/18 05:12 Dose: 5,000 units Cefepime HCl (Maxipime 2gm) 2 gm in 100 mls @ 100 mls/hr IVPB DAILY [facility]; Protocol Stop: 04/18/18 09:01 Last Admin: 04/15/18 10:04 Dose: 100 mls/hr Midodrine (Proamatine) 10 mg PO MWF [facility] Last Admin: 04/13/18 10:00 Dose: Not Given Nystatin (Nystop Topical Powder) 0 gm TOP BID [facility] Last Admin: 04/16/18 11:07 Dose: Not Given Oseltamivir Phosphate (Tamiflu Cap) 30 mg PO DAILY [facility]; Protocol Last Admin: 04/15/18 10:01 Dose: 30 mg Pantoprazole Sodium (Protonix Ec Tab) 40 mg PO 0600,1600 [facility] Last Admin: 04/16/18 05:11 Dose: 40 mg Sevelamer HCl (Renagel) 800 mg PO TID [facility] Last Admin: 04/16/18 11:07 Dose: Not Given Spironolactone (Aldactone) 50 mg PO DAILY [facility] Last Admin: 04/15/18 10:01 Dose: 50 mg Trazodone HCl (Desyrel) 100 mg PO HS [facility] Last Admin: 04/15/18 22:41 Dose: 100 mg Vitamin B Complex/Vit C/Folic Acid (Nephro-Bhupinder) 1 tab PO 0800 [facility] Last Admin: 04/15/18 10:01 Dose: 1 tab - Labs Labs: 04/16/18 08:00 04/16/18 08:00 PT 13.2 SECONDS (9.4-12.5) H 04/03/18 15:44 INR 1.15 04/03/18 15:44 APTT 30.7 Seconds (25.1-36.5) 04/03/18 15:44
--- NOTE | 2018-04-16 14:05 | CP.PCM.PN ---
Subjective - Date & Time of Evaluation Date of Evaluation: 04/16/18 Time of Evaluation: 10:10 - Subjective Subjective: Comfortable, afebrile, no nausea. Objective - Vital Signs/Intake and Output Vital Signs (last 24 hours): Temp Pulse Resp BP Pulse Ox 98 F 82 20 110/64 95 04/15/18 22:05 04/15/18 22:05 04/15/18 22:05 04/15/18 22:05 04/15/18 22:05 Intake and Output: 04/16/18 04/16/18 06:59 18:59 Intake Total 540 Output Total 350 Balance 190 - Medications Medications: Current Medications Acetaminophen (Tylenol 325mg Tab) 650 mg PO Q6 PRN PRN Reason: Fever >100.4 F Last Admin: 04/13/18 05:56 Dose: 650 mg Albuterol/Ipratropium (Duoneb 3 Mg/0.5 Mg (3 Ml) Ud) 3 ml IH [id number] MAKAYLA Last Admin: 04/16/18 07:40 Dose: 3 ml Albuterol/Ipratropium (Duoneb 3 Mg/0.5 Mg (3 Ml) Ud) 3 ml IH Q2H PRN PRN Reason: Shortness of Breath Last Admin: 04/10/18 23:56 Dose: 3 ml Alprazolam (Xanax) 0.25 mg PO TID PRN; Protocol PRN Reason: Anxiety Last Admin: 04/16/18 05:11 Dose: 0.25 mg Darbepoetin Fletcher (Aranesp) 150 mcg IVP QWK MAKAYLA Last Admin: 04/16/18 08:56 Dose: 150 mcg Ergocalciferol (Drisdol 50,000 Intl Units Cap) 1 cap PO Q7D [facility]KAYLA Last Admin: 04/15/18 14:05 Dose: 1 cap Ferrous Sulfate (Feosol) 324 mg PO WM [facility] Last Admin: 04/15/18 18:10 Dose: 324 mg Heparin Sodium (Porcine) (Heparin) 5,000 units SC Q8 MAKAYLA; Protocol Last Admin: 04/16/18 05:12 Dose: 5,000 units Cefepime HCl (Maxipime 2gm) 2 gm in 100 mls @ 100 mls/hr IVPB DAILY [facility]; Protocol Stop: 04/18/18 09:01 Last Admin: 04/15/18 10:04 Dose: 100 mls/hr Midodrine (Proamatine) 10 mg PO MWF [facility] Last Admin: 04/13/18 10:00 Dose: Not Given Nystatin (Nystop Topical Powder) 0 gm TOP BID [facility] Last Admin: 04/15/18 18:11 Dose: 1 appl Oseltamivir Phosphate (Tamiflu Cap) 30 mg PO DAILY [facility]; Protocol Last Admin: 04/15/18 10:01 Dose: 30 mg Pantoprazole Sodium (Protonix Ec Tab) 40 mg PO 0600,1600 [facility] Last Admin: 04/16/18 05:11 Dose: 40 mg Sevelamer HCl (Renagel) 800 mg PO TID [facility] Last Admin: 04/15/18 18:10 Dose: 800 mg Spironolactone (Aldactone) 50 mg PO DAILY [facility] Last Admin: 04/15/18 10:01 Dose: 50 mg Trazodone HCl (Desyrel) 100 mg PO HS [facility] Last Admin: 04/15/18 22:41 Dose: 100 mg Vitamin B Complex/Vit C/Folic Acid (Nephro-Bhupinder) 1 tab PO 0800 [facility] Last Admin: 04/15/18 10:01 Dose: 1 tab - Labs Labs: 04/16/18 08:00 04/16/18 08:00 PT 13.2 SECONDS (9.4-12.5) H 04/03/18 15:44 INR 1.15 04/03/18 15:44 APTT 30.7 Seconds (25.1-36.5) 04/03/18 15:44 - Constitutional Appears: Chronically Ill - Head Exam Head Exam: NORMAL INSPECTION - Respiratory Exam Respiratory Exam: Decreased Breath Sounds - Cardiovascular Exam Cardiovascular Exam: +S1, +S2 - GI/Abdominal Exam GI & Abdominal Exam: Soft. absent: Tenderness Assessment and Plan - Assessment and Plan (Free Text) Plan: Assessment new onset SIRS probably from Influenza A infection as well UTI with Klebsiella chronic lymphedema of lower extremities without evidence of cellulitis morbid obesity with BMI 52 chronic renal failure R/O peripheral vascular disease Plan will change Cefepime to Merrem to complete 3-5 days continue Tamiflu day 4 of 5 days will continue to monitor clinically
[2018-04-16] MEDS: Multivitamin Vitamin B Complex (Nephro-Vite) Tab PO SCH (15:46)
[2018-04-16] MEDS: MEROPENEM 500 MG in NS 500 MG/50 ML BAG IVPB SCH (15:47)
[2018-04-17] MEDS: Albuterol-Ipratrop 3 mg / 0.5 (3 ml) UD IH SCH ×4 (01:31→20:01)
[2018-04-17] MEDS: Pantoprazole 40 mg EC Tab PO SCH ×2 (05:52→16:16)
--- NOTE | 2018-04-17 07:20 | CP.PCM.PN ---
<WoodardYsabel L - Last Filed: 04/17/18 12:12> Subjective - Date & Time of Evaluation Date of Evaluation: 04/17/18 Time of Evaluation: 07:19 - Subjective Subjective: Resident Progress Note for Hospitalist Service Patient examined at bedside. No acute events overnight. Patient offers no complaints. States that she is compliant with physical therapy however still feels generalized weakness. Pending coordination of outpatient dialysis. Objective - Vital Signs/Intake and Output Vital Signs (last 24 hours): Temp Pulse Resp BP Pulse Ox 98.9 F 88 20 114/72 94 L 04/16/18 23:21 04/16/18 23:21 04/16/18 23:21 04/16/18 23:21 04/16/18 23:21 Intake and Output: 04/17/18 04/17/18 06:59 18:59 Intake Total 480 Balance 480 - Medications Medications: Current Medications Acetaminophen (Tylenol 325mg Tab) 650 mg PO Q6 PRN PRN Reason: Fever >100.4 F Last Admin: 04/13/18 05:56 Dose: 650 mg Albuterol/Ipratropium (Duoneb 3 Mg/0.5 Mg (3 Ml) Ud) 3 ml IH [id number] [facility] Last Admin: 04/17/18 01:31 Dose: 3 ml Albuterol/Ipratropium (Duoneb 3 Mg/0.5 Mg (3 Ml) Ud) 3 ml IH Q2H PRN PRN Reason: Shortness of Breath Last Admin: 04/10/18 23:56 Dose: 3 ml Alprazolam (Xanax) 0.25 mg PO TID PRN; Protocol PRN Reason: Anxiety Last Admin: 04/16/18 15:53 Dose: 0.25 mg Darbepoetin Fletcher (Aranesp) 150 mcg IVP QWK [facility] Last Admin: 04/16/18 08:56 Dose: 150 mcg Ergocalciferol (Drisdol 50,000 Intl Units Cap) 1 cap PO Q7D [facility] Last Admin: 04/15/18 14:05 Dose: 1 cap Ferrous Sulfate (Feosol) 324 mg PO WM [facility] Last Admin: 04/16/18 17:13 Dose: Not Given Heparin Sodium (Porcine) (Heparin) 5,000 units SC Q8 [facility]; Protocol Last Admin: 04/17/18 05:51 Dose: 5,000 units Meropenem/Sodium Chloride (Merrem Iv 500 Mg/Ns 50 Ml) 500 mg in 50 mls @ 100 mls/hr IVPB Q24H [facility]; Protocol Last Admin: 04/16/18 15:47 Dose: 100 mls/hr Midodrine (Proamatine) 10 mg PO MWF [facility] Last Admin: 04/16/18 15:46 Dose: 10 mg Nystatin (Nystop Topical Powder) 0 gm TOP BID [facility] Last Admin: 04/16/18 17:50 Dose: 1 appl Oseltamivir Phosphate (Tamiflu Cap) 30 mg PO DAILY [facility]; Protocol Last Admin: 04/16/18 15:45 Dose: 30 mg Pantoprazole Sodium (Protonix Ec Tab) 40 mg PO 0600,1600 [facility] Last Admin: 04/17/18 05:52 Dose: 40 mg Sevelamer HCl (Renagel) 800 mg PO TID [facility] Last Admin: 04/16/18 17:50 Dose: 800 mg Spironolactone (Aldactone) 50 mg PO DAILY [facility] Last Admin: 04/16/18 15:46 Dose: 50 mg Trazodone HCl (Desyrel) 100 mg PO HS [facility] Last Admin: 04/16/18 22:14 Dose: 100 mg Vitamin B Complex/Vit C/Folic Acid (Nephro-Bhupinder) 1 tab PO 0800 [facility] Last Admin: 04/16/18 15:46 Dose: 1 tab - Labs Labs: 04/16/18 08:00 04/16/18 08:00 PT 13.2 SECONDS (9.4-12.5) H 04/03/18 15:44 INR 1.15 04/03/18 15:44 APTT 30.7 Seconds (25.1-36.5) 04/03/18 15:44 - Additional Findings Additional findings: - Constitutional Appears: No Acute Distress - Head Exam Head Exam: NORMAL INSPECTION, ATRAUMATIC - Eye Exam Eye Exam: EOMI - ENT Exam ENT Exam: Mucous Membranes Moist, Normal Exam - Neck Exam Neck exam: Positive for: Normal Inspection - Respiratory Exam Respiratory Exam: Clear to Auscultation Bilateral. absent: Rales, Rhonchi, Wheezes, respiratory distress - Cardiovascular Exam Cardiovascular Exam: Regular rhythm, +S1, +S2. absent: Systolic Murmur - GI/Abdominal Exam GI & Abdominal Exam: Soft. Bowel sounds present absent: Distended, Guarding, Rebound, Tenderness - Extremities Exam Extremities exam: Positive for: pedal edema Additional comments: 2+ edema noted on both legs -no draining/weeping/pus noted on lower extremities - Neurological Exam Neurological exam: Alert, CN II-XII Intact, Oriented x3 - Skin Skin Exam: Dry, Intact and Pallor Assessment and Plan - Assessment and Plan (Free Text) Assessment: Patient is a 52 yo F with past medical history liver failure, morbid obesity, and EtOH abuse presents to [facility] for worsening weakness and admitted for [facility] of anemia and FELIPE with metabolic acidosis. Focusing on outpatient HD and PT at this time. Plan: Acute renal failure - improved -on HD MWF -Working with [facility] for outpatient HD setup, currently under evaluation -Renal US is unremarkable -Renagel 800 mg PO TID -Strict I's and O's -Nephrology on consult, Dr. Salmeron Fever - resolved -afebrile > 48hours -positive flu type A, tamiflu day 5 out of 5 -urine culture growing klebsiella, yeast. Patient asymptomatic -CXR showed moderate cardiomegaly, vascular congestion -blood culture shows no growth after 3 days -procalcitonin mildly elevated -meropenem 500 mg IV Q24H Chronic lymphedema of B/L legs -podiatry on consult, no further recommendations, local wound care for now - not currently draining/weeping -repeat ext US shows possible right SFA occlusive disease, limited study due to artifact -wound culture grew Enterobacter Cloacae, E. faecalis - superficial bacteria colonizers, repeat wound culture -PT recommends [facility] -daily PT rehab Microcytic anemia -s/p total 11 units pRBCs, 2 FFPs -oral iron started -endoscopy showed 3 non bleeding gastric ulcers, largest one 8mm -iron studies shows likely iron deficiency -Head CT unremarkable -CTAP shows adenopathy of the hepatic gastric ligament -GI on consult, Dr. Melo Elevated BNP -BNP [phone] on admission -Echo showed EF of 68%, mild TR/MR, mild pulm HTN, borderline LVH Depression -Psych on consult, Dr. Ramos -continue trazodone PPX/Diet -protonix, heparin -renal diet Case discussed with Dr. Cody Woodard PGY-1 <Miko Ross - Last Filed: 04/17/18 12:34> Objective - Vital Signs/Intake and Output Vital Signs (last 24 hours): Temp Pulse Resp BP Pulse Ox 98.9 F 88 20 114/72 94 L 04/16/18 23:21 04/16/18 23:21 04/16/18 23:21 04/16/18 23:21 04/16/18 23:21 Intake and Output: 04/17/18 04/17/18 06:59 18:59 Intake Total 480 Balance 480 - Medications Medications: Current Medications Acetaminophen (Tylenol 325mg Tab) 650 mg PO Q6 PRN PRN Reason: Fever >100.4 F Last Admin: 04/13/18 05:56 Dose: 650 mg Albuterol/Ipratropium (Duoneb 3 Mg/0.5 Mg (3 Ml) Ud) 3 ml IH [id number] MAKAYLA Last Admin: 04/17/18 07:47 Dose: 3 ml Albuterol/Ipratropium (Duoneb 3 Mg/0.5 Mg (3 Ml) Ud) 3 ml IH Q2H PRN PRN Reason: Shortness of Breath Last Admin: 04/10/18 23:56 Dose: 3 ml Alprazolam (Xanax) 0.25 mg PO TID PRN; Protocol PRN Reason: Anxiety Last Admin: 04/16/18 15:53 Dose: 0.25 mg Darbepoetin Fletcher (Aranesp) 150 mcg IVP QWK [facility] Last Admin: 04/16/18 08:56 Dose: 150 mcg Ergocalciferol (Drisdol 50,000 Intl Units Cap) 1 cap PO Q7D [facility] Last Admin: 04/15/18 14:05 Dose: 1 cap Ferrous Sulfate (Feosol) 324 mg PO WM [facility] Last Admin: 04/17/18 12:00 Dose: 324 mg Heparin Sodium (Porcine) (Heparin) 5,000 units SC Q8 [facility]; Protocol Last Admin: 04/17/18 05:51 Dose: 5,000 units Meropenem/Sodium Chloride (Merrem Iv 500 Mg/Ns 50 Ml) 500 mg in 50 mls @ 100 mls/hr IVPB Q24H [facility]; Protocol Last Admin: 04/16/18 15:47 Dose: 100 mls/hr Midodrine (Proamatine) 10 mg PO MWF [facility] Last Admin: 04/16/18 15:46 Dose: 10 mg Nystatin (Nystop Topical Powder) 0 gm TOP BID [facility] Last Admin: 04/16/18 17:50 Dose: 1 appl Oseltamivir Phosphate (Tamiflu Cap) 30 mg PO DAILY [facility]; Protocol Last Admin: 04/17/18 11:56 Dose: 30 mg Pantoprazole Sodium (Protonix Ec Tab) 40 mg PO 0600,1600 [facility] Last Admin: 04/17/18 05:52 Dose: 40 mg Sevelamer HCl (Renagel) 800 mg PO TID [facility] Last Admin: 04/17/18 11:56 Dose: 800 mg Spironolactone (Aldactone) 50 mg PO DAILY [facility] Last Admin: 04/16/18 15:46 Dose: 50 mg Trazodone HCl (Desyrel) 100 mg PO HS [facility] Last Admin: 04/16/18 22:14 Dose: 100 mg Vitamin B Complex/Vit C/Folic Acid (Nephro-Bhupinder) 1 tab PO 0800 [facility] Last Admin: 04/17/18 08:11 Dose: 1 tab - Labs Labs: 04/17/18 07:30 04/17/18 07:30 PT 13.2 SECONDS (9.4-12.5) H 04/03/18 15:44 INR 1.15 04/03/18 15:44 APTT 30.7 Seconds (25.1-36.5) 04/03/18 15:44 Attending/Attestation - Attestation I have personally seen and examined this patient.: Yes I have fully participated in the care of the patient.: Yes I have reviewed all pertinent clinical information, including history, physical exam and plan: Yes Notes (Text): 04/17/18 12:18 52 year old female with past medical history of liver failures, alcohol abuse, depression and gastric bypass surgery who presented with generalized weakness, f atigue and dark stools. She was found to have acute anemia and severe metabolic acidosis and acute renal failure. She is s/p multiple PRBC transfusions. She is s/p EGD which showed multiple gastric ulcers. She is on protonix. H/H has been stable. She is on po iron. Continue with hemodialysis as per nephrology. Patient will need outpatient dialysis set up which CMaubrey/Sw is working on. Podiatry is following for bilateral LE swelling and weeping. Continue with local wound care. Wound culture was positive for Enterobacter Clocae and Enterococcus Faecalis. Ucx positive for Klebsiella. Antiobiotics switched from cefepime to meropenem per ID. She is on tamiflu for influenza. PT evaluation was appreciated who recommended [facility]. Will follow up with [facility]/An[facility]. Miko Ross MD Hospitalist.
[2018-04-17] MEDS: Multivitamin Vitamin B Complex (Nephro-Vite) Tab PO SCH (08:11)
[2018-04-17 08:33] LABS: BASO # 0.03 K/mm3 (0.0-2.0); BASO % 0.7 % (0.0-3.0); EOS # 0.4 (0.0-0.7); EOS % 9.3 % (1.5-5.0); GRAN # 2.57 (1.4-6.5); GRAN % 61.2 % (50.0-68.0); HEMOGLOBIN 8.6 g/dL (12.0-16.0); LYMPH # 0.8 (1.2-3.4); LYMPH % 18.6 % (22.0-35.0); MEAN CELL VOLUME 88.6 fl (80.0-105.0); MEAN CORPUSCULAR HEMOGLOBIN 27.2 pg (25.0-35.0); MEAN CORPUSCULAR HGB CONC 30.7 g/dl (31.0-37.0); MEAN PLATELET VOLUME 8.7 fl (7.0-11.0); MONO # 0.4 (0.1-0.6); MONO % 10.2 % (1.0-6.0); RBC 3.16 10^6/uL (3.5-6.1); RED CELL DISTRIBUTION WIDTH 21.2 % (11.5-14.5); WHITE BLOOD COUNT 4.2 10^3/uL (4.5-11.0)
[2018-04-17 08:54] LABS: ALB/GLOB RATIO 0.6 (1.1-1.8); CALCIUM 7.4 mg/dL (8.4-10.5)
--- NOTE | 2018-04-17 10:24 | CP.PCM.PN ---
Subjective - Date & Time of Evaluation Date of Evaluation: 04/17/18 Time of Evaluation: 10:23 - Subjective Subjective: Nephrology Consultation Note: Assessment: stable oligoanuric Acute Kidney Injury (N17.9) likely due to ATN, pre-renal state, intrasvasc hypovolemia, impaired renal perfusion, HD 04/05/18: first session anasarca severe symptomatic anemia due to GI bleed with gastric ulcers mild hyperkalemia and HAGMA, hyperphos hx of cirrhosis and etoh intra-ab lymphadenopathy morbid obesity Plan HD MWF Maintain hemodynamics stable. Avoid hypotension. Patient not on ACEI/ARB due to recent FELIPE. on midodrine pre HD Monitor Input/Output, daily weights and renal function with basic metabolic panel on phos binders, phos stable PRBC as needed. started IV iron. on weekly aranesp vit d Dose meds/antibiotics for reduced GFR. Avoid fleets enema/magnesium based laxatives. Avoid nephrotoxins/NSAIDs/ iodinated contrast (unless needed emergently) Glycemic control Further work up/management as per primary team SW for outpt hd placement. can f/up as outpt for renal recovery. stable for d/c from renal perspective once arranged for outpt HD. Av access will be planned later as outpt if no renal recovery in 3 months s: seen and examined resting comfortably Physical Examination: General Appearance: Comfortable, in no acute respiratory distress, co-operative . morbid obese Vitals reviewed and noted as below Head; Atraumatic, normocephalic ENT: no ulcers no thrush. Tongue is midline. Oropharynx: no rash or ulcers. EYES: Pupils are equal, round and reactive to light accommodation. Eye muscles and extraocular movement intact. Sclera is anicteric. Neck; supple no lymphadenopathy, no thyromegaly or bruit Lungs: Normal respiratory rate/effort. Breath sounds bilateral reduced at bases Heart: Normal rate. s1s2 normal. No rub or gallop. Extremities: 2+ edema. Neurological: Patient is alert, awake and oriented to person, place and time. No focal deficit. Strength bilateral appropriate and equal Skin: Warm and dry. Normal turgor. spider angioma rash upper chest. Palpitation: Normal elasticity for age Abdomen: Abdomen is soft. Bowel sounds +. There is no abdominal tenderness, no guarding/rigidity no organomegaly. limited due to obesity and abd wall edema Psych: normal insight and normal affect/mood MSK: lymphedemaous changes b/l LE ext : kidney or bladder not palpable. has access as permacath Labs/imaging reviewed. Past medical history, past surgical history, family history, social history, allergy reviewed and noted as below Family hx: no hx of CKD. Rest non-contributory fena 0.3% intra-ab lymphadenopathy Objective - Vital Signs/Intake and Output Vital Signs (last 24 hours): Temp Pulse Resp BP Pulse Ox 98.9 F 88 20 114/72 94 L 04/16/18 23:21 04/16/18 23:21 04/16/18 23:21 04/16/18 23:21 04/16/18 23:21 Intake and Output: 04/17/18 04/17/18 06:59 18:59 Intake Total 480 Balance 480 - Medications Medications: Current Medications Acetaminophen (Tylenol 325mg Tab) 650 mg PO Q6 PRN PRN Reason: Fever >100.4 F Last Admin: 04/13/18 05:56 Dose: 650 mg Albuterol/Ipratropium (Duoneb 3 Mg/0.5 Mg (3 Ml) Ud) 3 ml IH [id number] MAKAYLA Last Admin: 04/17/18 07:47 Dose: 3 ml Albuterol/Ipratropium (Duoneb 3 Mg/0.5 Mg (3 Ml) Ud) 3 ml IH Q2H PRN PRN Reason: Shortness of Breath Last Admin: 04/10/18 23:56 Dose: 3 ml Alprazolam (Xanax) 0.25 mg PO TID PRN; Protocol PRN Reason: Anxiety Last Admin: 04/16/18 15:53 Dose: 0.25 mg Darbepoetin Fletcher (Aranesp) 150 mcg IVP QWK [facility] Last Admin: 04/16/18 08:56 Dose: 150 mcg Ergocalciferol (Drisdol 50,000 Intl Units Cap) 1 cap PO Q7D [facility] Last Admin: 04/15/18 14:05 Dose: 1 cap Ferrous Sulfate (Feosol) 324 mg PO WM [facility] Last Admin: 04/17/18 08:11 Dose: 324 mg Heparin Sodium (Porcine) (Heparin) 5,000 units SC Q8 [facility]; Protocol Last Admin: 04/17/18 05:51 Dose: 5,000 units Meropenem/Sodium Chloride (Merrem Iv 500 Mg/Ns 50 Ml) 500 mg in 50 mls @ 100 mls/hr IVPB Q24H [facility]; Protocol Last Admin: 04/16/18 15:47 Dose: 100 mls/hr Midodrine (Proamatine) 10 mg PO MWF [facility] Last Admin: 04/16/18 15:46 Dose: 10 mg Nystatin (Nystop Topical Powder) 0 gm TOP BID [facility] Last Admin: 04/16/18 17:50 Dose: 1 appl Oseltamivir Phosphate (Tamiflu Cap) 30 mg PO DAILY [facility]; Protocol Last Admin: 04/16/18 15:45 Dose: 30 mg Pantoprazole Sodium (Protonix Ec Tab) 40 mg PO 0600,1600 [facility] Last Admin: 04/17/18 05:52 Dose: 40 mg Sevelamer HCl (Renagel) 800 mg PO TID [facility] Last Admin: 04/16/18 17:50 Dose: 800 mg Spironolactone (Aldactone) 50 mg PO DAILY [facility] Last Admin: 04/16/18 15:46 Dose: 50 mg Trazodone HCl (Desyrel) 100 mg PO HS [facility] Last Admin: 04/16/18 22:14 Dose: 100 mg Vitamin B Complex/Vit C/Folic Acid (Nephro-Bhupinder) 1 tab PO 0800 [facility] Last Admin: 04/17/18 08:11 Dose: 1 tab - Labs Labs: 04/17/18 07:30 04/17/18 07:30 PT 13.2 SECONDS (9.4-12.5) H 04/03/18 15:44 INR 1.15 04/03/18 15:44 APTT 30.7 Seconds (25.1-36.5) 04/03/18 15:44
[2018-04-17] MEDS: Nystatin 100,000 Units/gm Topical Pow(15 gm) TOP SCH ×2 (11:00→17:49)
[2018-04-17] MEDS ORDERED: Potassium Chloride 20 mEq ER Tab PO STA (12:07)
[2018-04-17] MEDS: MEROPENEM 500 MG in NS 500 MG/50 ML BAG IVPB SCH (13:31)
--- NOTE | 2018-04-17 16:51 | PN ---
DATE: 04/17/2018 SUBJECTIVE: The patient is in bed in no acute distress, nontoxic. PHYSICAL EXAMINATION: VITAL SIGNS: On exam, temperature is 98, blood pressure is 114/70, respiratory rate 20, heart rate of 88. HEENT: Examination of HEENT is unremarkable. NECK: Supple. LUNGS: Have decreased breath sounds. HEART: Normal S1, S2. ABDOMEN: Soft, nontender. LABORATORY DATA: Laboratory examination reveals a white count of 4.2, hemoglobin of 8, platelets of 78. BUN of 32. Creatinine is 3. Procalcitonin is 0.77. Microbiology is noted. Review of orders reveals the patient to be on meropenem and Tamiflu. ASSESSMENT/PLAN: This is 52-year-old female with sepsis with influenza A and Klebsiella urinary tract infection. The patient with chronic lymphedema of lower extremities without any evidence of cellulitis. Currently on meropenem and today is day #5 of Tamiflu. Can discontinue the Tamiflu after today's one last dose. The Klebsiella in the urine sensitive to meropenem. Today is day #2 of meropenem. Would complete 3 to 5 days' of meropenem, today is day #2. Orion Thompson MD
[2018-04-18] MEDS: Albuterol-Ipratrop 3 mg / 0.5 (3 ml) UD IH SCH ×3 (03:35→20:25)
[2018-04-18] MEDS: Pantoprazole 40 mg EC Tab PO SCH ×2 (05:46→17:00)
[2018-04-18 06:49] LABS: ALB/GLOB RATIO 0.6 (1.1-1.8); CALCIUM 7.6 mg/dL (8.4-10.5)
[2018-04-18 07:09] LABS: BASO # 0.01 K/mm3 (0.0-2.0); BASO % 0.2 % (0.0-3.0); EOS # 0.4 (0.0-0.7); EOS % 7.6 % (1.5-5.0); GRAN # 3.41 (1.4-6.5); GRAN % 63.5 % (50.0-68.0); HEMOGLOBIN 8.8 g/dL (12.0-16.0); LYMPH % 17.9 % (22.0-35.0); MEAN CELL VOLUME 89.4 fl (80.0-105.0); MEAN CORPUSCULAR HEMOGLOBIN 27.5 pg (25.0-35.0); MEAN CORPUSCULAR HGB CONC 30.8 g/dl (31.0-37.0); MONO # 0.6 (0.1-0.6); MONO % 10.8 % (1.0-6.0); RBC 3.2 10^6/uL (3.5-6.1); RED CELL DISTRIBUTION WIDTH 21.1 % (11.5-14.5); WHITE BLOOD COUNT 5.4 10^3/uL (4.5-11.0)
--- NOTE | 2018-04-18 13:02 | CP.PCM.PN ---
<Taylor Alfaro - Last Filed: 04/18/18 15:05> Subjective - Date & Time of Evaluation Date of Evaluation: 04/18/18 Time of Evaluation: 12:41 - Subjective Subjective: Podiatry Progress Note for Dr. Rice 52F patient seen and evaluated at bedside for b/l edema and L heel ulceration. Resting comfortably. Denies any pain to b/l lower extremities. Denies N/V/F. Objective - Vital Signs/Intake and Output Vital Signs (last 24 hours): Temp Pulse Resp BP Pulse Ox 98.3 F 84 20 119/59 L 97 04/18/18 06:00 04/18/18 06:00 04/18/18 06:00 04/18/18 06:00 04/18/18 06:00 Intake and Output: 04/18/18 04/18/18 06:59 18:59 Intake Total 480 Output Total 900 Balance -420 - Medications Medications: Current Medications Acetaminophen (Tylenol 325mg Tab) 650 mg PO Q6 PRN PRN Reason: Fever >100.4 F Last Admin: 04/13/18 05:56 Dose: 650 mg Albuterol/Ipratropium (Duoneb 3 Mg/0.5 Mg (3 Ml) Ud) 3 ml IH [id number] [facility] Last Admin: 04/18/18 07:28 Dose: 3 ml Albuterol/Ipratropium (Duoneb 3 Mg/0.5 Mg (3 Ml) Ud) 3 ml IH Q2H PRN PRN Reason: Shortness of Breath Last Admin: 04/10/18 23:56 Dose: 3 ml Alprazolam (Xanax) 0.25 mg PO TID PRN; Protocol PRN Reason: Anxiety Last Admin: 04/18/18 01:51 Dose: 0.25 mg Darbepoetin Fletcher (Aranesp) 150 mcg IVP QWK [facility] Last Admin: 04/16/18 08:56 Dose: 150 mcg Ergocalciferol (Drisdol 50,000 Intl Units Cap) 1 cap PO Q7D [facility] Last Admin: 04/15/18 14:05 Dose: 1 cap Ferrous Sulfate (Feosol) 324 mg PO WM [facility] Last Admin: 04/17/18 17:45 Dose: 324 mg Heparin Sodium (Porcine) (Heparin) 5,000 units SC Q8 [facility]; Protocol Last Admin: 04/18/18 05:46 Dose: 5,000 units Meropenem/Sodium Chloride (Merrem Iv 500 Mg/Ns 50 Ml) 500 mg in 50 mls @ 100 mls/hr IVPB Q24H [facility]; Protocol Last Admin: 04/17/18 13:31 Dose: 100 mls/hr Midodrine (Proamatine) 10 mg PO MWF [facility] Last Admin: 04/16/18 15:46 Dose: 10 mg Nystatin (Nystop Topical Powder) 0 gm TOP BID [facility] Last Admin: 04/17/18 17:49 Dose: 1 appl Oseltamivir Phosphate (Tamiflu Cap) 30 mg PO DAILY [facility]; Protocol Last Admin: 04/17/18 11:56 Dose: 30 mg Pantoprazole Sodium (Protonix Ec Tab) 40 mg PO 0600,1600 [facility] Last Admin: 04/18/18 05:46 Dose: 40 mg Sevelamer HCl (Renagel) 800 mg PO TID [facility] Last Admin: 04/17/18 17:45 Dose: 800 mg Spironolactone (Aldactone) 50 mg PO DAILY [facility] Last Admin: 04/17/18 13:27 Dose: Not Given Trazodone HCl (Desyrel) 100 mg PO HS [facility] Last Admin: 04/17/18 22:33 Dose: 100 mg Vitamin B Complex/Vit C/Folic Acid (Nephro-Bhupinder) 1 tab PO 0800 [facility] Last Admin: 04/17/18 08:11 Dose: 1 tab - Labs Labs: 04/18/18 06:10 04/18/18 06:10 PT 13.2 SECONDS (9.4-12.5) H 04/03/18 15:44 INR 1.15 04/03/18 15:44 APTT 30.7 Seconds (25.1-36.5) 04/03/18 15:44 - Constitutional Appears: Well, Non-toxic, No Acute Distress - Head Exam Head Exam: ATRAUMATIC, NORMOCEPHALIC - Eye Exam Eye Exam: Normal appearance Pupil Exam: NORMAL ACCOMODATION - ENT Exam ENT Exam: Mucous Membranes Moist - Respiratory Exam Respiratory Exam: NORMAL BREATHING PATTERN - Cardiovascular Exam Cardiovascular Exam: REGULAR RHYTHM - Extremities Exam Additional comments: Vascular: DP/PT non palpable secondary to edema, CFT < 3 seconds, TG warm to warm, no pedal hair present, +2 pitting edema to bilateral lower extremities beginning at the tibial tuberosity and extending distally to the digits Ortho: Tenderness to palpation of b/l lower extremities, MMT 4/5 Neuro: Gross sensation intact, protective sensation diminished Derm: left ulcer healed, no open lesions no clinical signs of infection. Assessment and Plan - Assessment and Plan (Free Text) Assessment: 52F with b/l LE edema and left heel ulcer Plan: Patient seen and evaluated Discussed in detail with Dr. Rice Afebrile, absent leukocytosis B/L LE US; no evidence of DVT to bilateral lower extremities B/l LE arterial US ordered: Right SFA occlusive disease Wound culture take from L heel; e cloacae, e faecalis - heavy growth Patient informed to keep her legs elevated at all times to help control the swelling ID on board; recs appreciated, continue medications stable for discharge from podiatry point of view Podiatry will sign off, please reconsult if necessary <Darline Rice - Last Filed: 04/21/18 14:15> Objective - Vital Signs/Intake and Output Vital Signs (last 24 hours): Temp Pulse Resp BP Pulse Ox 99 F 90 20 108/52 L 99 04/21/18 06:00 04/21/18 06:00 04/21/18 06:00 04/21/18 09:13 04/21/18 06:00 Intake and Output: 04/21/18 04/21/18 06:59 18:59 Intake Total 240 Balance 240 - Medications Medications: Current Medications Acetaminophen (Tylenol 325mg Tab) 650 mg PO Q6 PRN PRN Reason: Fever >100.4 F Last Admin: 04/13/18 05:56 Dose: 650 mg Albuterol/Ipratropium (Duoneb 3 Mg/0.5 Mg (3 Ml) Ud) 3 ml IH [id number] [facility] Last Admin: 04/21/18 09:24 Dose: 3 ml Albuterol/Ipratropium (Duoneb 3 Mg/0.5 Mg (3 Ml) Ud) 3 ml IH Q2H PRN PRN Reason: Shortness of Breath Last Admin: 04/21/18 00:50 Dose: 3 ml Alprazolam (Xanax) 0.25 mg PO TID PRN; Protocol PRN Reason: Anxiety Last Admin: 04/21/18 06:25 Dose: 0.25 mg Darbepoetin Fletcher (Aranesp) 200 mcg IVP QWK [facility] Ergocalciferol (Drisdol 50,000 Intl Units Cap) 1 cap PO Q7D [facility] Last Admin: 04/15/18 14:05 Dose: 1 cap Furosemide (Lasix) 40 mg IVP DAILY [facility] Last Admin: 04/21/18 09:13 Dose: 40 mg Heparin Sodium (Porcine) (Heparin) 5,000 units SC Q8 [facility]; Protocol Last Admin: 04/21/18 14:04 Dose: 5,000 units Iron Sucrose 100 mg/ Sodium (Chloride) 105 mls @ 210 mls/hr IVPB QWK [facility] Stop: 05/18/18 10:29 Last Admin: 04/20/18 13:06 Dose: 210 mls/hr Midodrine (Proamatine) 10 mg PO MWF [facility] Last Admin: 04/20/18 09:24 Dose: 10 mg Multi-Ingredient Ointment (Hydrophor Oint) 0 gm TOP Q12 [facility] Last Admin: 04/21/18 09:11 Dose: 1 units Nystatin (Nystop Topical Powder) 0 gm TOP BID [facility] Last Admin: 04/21/18 09:12 Dose: 1 appl Pantoprazole Sodium (Protonix Ec Tab) 40 mg PO 0600,1600 [facility] Last Admin: 04/21/18 06:25 Dose: 40 mg Sevelamer HCl (Renagel) 800 mg PO TID [facility] Last Admin: 04/21/18 14:03 Dose: 800 mg Spironolactone (Aldactone) 50 mg PO DAILY [facility] Last Admin: 04/21/18 09:13 Dose: 50 mg Trazodone HCl (Desyrel) 100 mg PO HS [facility] Last Admin: 04/20/18 21:50 Dose: 100 mg Vitamin B Complex/Vit C/Folic Acid (Nephro-Bhupinder) 1 tab PO 0800 [facility] Last Admin: 04/21/18 09:13 Dose: 1 tab - Labs Labs: 04/21/18 06:00 04/21/18 06:00 PT 13.2 SECONDS (9.4-12.5) H 04/03/18 15:44 INR 1.15 04/03/18 15:44 APTT 30.7 Seconds (25.1-36.5) 04/03/18 15:44 Attending/Attestation - Attestation I have personally seen and examined this patient.: Yes I have fully participated in the care of the patient.: Yes I have reviewed all pertinent clinical information, including history, physical exam and plan: Yes
[2018-04-18] MEDS: Nystatin 100,000 Units/gm Topical Pow(15 gm) TOP SCH ×2 (14:00→17:01)
[2018-04-18] MEDS: Multivitamin Vitamin B Complex (Nephro-Vite) Tab PO SCH (14:00)
--- NOTE | 2018-04-18 14:20 | CP.PCM.HP ---
History of Present Illness - History of Present Illness History of Present Illness: Nhung Anne, PGY1 Hospital Progress Note Patient seen and examined at bedside this morning. No acute events reported overnight. Offers no complaints today. Received HD today - 3.5L removed. Past Patient History - Past Social History Smoking Status: Former Smoker - CARDIAC Hx Congestive Heart Failure: Yes - NEUROLOGICAL Hx Neurological Disorder: No - HEENT Hx HEENT Problems: No - RENAL Hx Renal Failure: Yes - HEMATOLOGICAL/ONCOLOGICAL Hx Cirrhosis: Yes - INTEGUMENTARY Hx Dermatological Problems: No - MUSCULOSKELETAL/RHEUMATOLOGICAL Hx Musculoskeletal Disorders: No Hx Falls: Yes - GASTROINTESTINAL Hx Gastrointestinal Disorders: No - GENITOURINARY/GYNECOLOGICAL Hx Genitourinary Disorders: No - PSYCHIATRIC Hx Psychophysiologic Disorder: No Hx Depression: Yes Hx Substance Use: No - SURGICAL HISTORY Hx Surgeries: Yes Hx Cholecystectomy: Yes - ANESTHESIA Hx Anesthesia: Yes Meds Allergies/Adverse Reactions: Allergies Allergy/AdvReac Type Severity Reaction Status Date / Time No Known Allergies Allergy Verified 04/03/18 14:56 Results - Vital Signs Recent Vital Signs: Last Vital Signs Temp 97.8 F 04/18/18 13:54 Pulse 47 L 04/18/18 13:54 Resp 20 04/18/18 13:54 BP 116/54 L 04/18/18 13:54 Pulse Ox 97 04/18/18 13:54 - Labs Result Diagrams: 04/18/18 06:10 04/18/18 06:10 Labs: Laboratory Results - last 24 hr 04/18/18 04/18/18 06:10 06:10 WBC 5.4 D RBC 3.20 L Hgb 8.8 L Hct 28.6 L MCV 89.4 MCH 27.5 MCHC 30.8 L RDW 21.1 H Plt Count 91 L MPV 9.0 Gran % 63.5 Lymph % (Auto) 17.9 L [place] % (Auto) 10.8 H Eos % (Auto) 7.6 H Baso % (Auto) 0.2 Gran # 3.41 Lymph # (Auto) 1.0 L [place] # (Auto) 0.6 Eos # (Auto) 0.4 Baso # (Auto) 0.01 Sodium 132 Potassium 3.8 Chloride 102 Carbon Dioxide 25 Anion Gap 9 L BUN 35 H Creatinine 3.1 H Est GFR ( Amer) 19 Est GFR (Non-Af Amer) 16 Random Glucose 83 Calcium 7.6 L Total Bilirubin 1.4 H AST 34 ALT 23 Alkaline Phosphatase 218 H Total Protein 5.3 L Albumin 2.0 L Globulin 3.3 Albumin/Globulin Ratio 0.6 L
--- NOTE | 2018-04-18 14:21 | CP.PCM.PN ---
<Nhung Anne - Last Filed: 04/18/18 14:22> Subjective - Date & Time of Evaluation Date of Evaluation: 04/18/18 Time of Evaluation: 11:45 - Subjective Subjective: Nhung Anne PGY1 Hospital Progress Note Patient seen and examined at bedside this morning. No acute events reported overnight. Offers no complaints today. Received HD today - 3L removed. Objective - Vital Signs/Intake and Output Vital Signs (last 24 hours): Temp Pulse Resp BP Pulse Ox 97.8 F 47 L 20 116/54 L 97 04/18/18 13:54 04/18/18 13:54 04/18/18 13:54 04/18/18 13:54 04/18/18 13:54 Intake and Output: 04/18/18 04/18/18 06:59 18:59 Intake Total 480 Output Total 900 Balance -420 - Medications Medications: Current Medications Acetaminophen (Tylenol 325mg Tab) 650 mg PO Q6 PRN PRN Reason: Fever >100.4 F Last Admin: 04/13/18 05:56 Dose: 650 mg Albuterol/Ipratropium (Duoneb 3 Mg/0.5 Mg (3 Ml) Ud) 3 ml IH [id number] [facility] Last Admin: 04/18/18 07:28 Dose: 3 ml Albuterol/Ipratropium (Duoneb 3 Mg/0.5 Mg (3 Ml) Ud) 3 ml IH Q2H PRN PRN Reason: Shortness of Breath Last Admin: 04/10/18 23:56 Dose: 3 ml Alprazolam (Xanax) 0.25 mg PO TID PRN; Protocol PRN Reason: Anxiety Last Admin: 04/18/18 13:58 Dose: 0.25 mg Darbepoetin Fletcher (Aranesp) 150 mcg IVP QWK [facility] Last Admin: 04/16/18 08:56 Dose: 150 mcg Ergocalciferol (Drisdol 50,000 Intl Units Cap) 1 cap PO Q7D [facility] Last Admin: 04/15/18 14:05 Dose: 1 cap Ferrous Sulfate (Feosol) 324 mg PO WM [facility]KAYLA Last Admin: 04/18/18 13:38 Dose: Not Given Heparin Sodium (Porcine) (Heparin) 5,000 units SC Q8 [facility]; Protocol Last Admin: 04/18/18 05:46 Dose: 5,000 units Meropenem/Sodium Chloride (Merrem Iv 500 Mg/Ns 50 Ml) 500 mg in 50 mls @ 100 mls/hr IVPB Q24H [facility]; Protocol Last Admin: 04/17/18 13:31 Dose: 100 mls/hr Midodrine (Proamatine) 10 mg PO MWF [facility] Last Admin: 04/18/18 14:00 Dose: Not Given Nystatin (Nystop Topical Powder) 0 gm TOP BID [facility] Last Admin: 04/18/18 14:00 Dose: Not Given Oseltamivir Phosphate (Tamiflu Cap) 30 mg PO DAILY [facility]; Protocol Last Admin: 04/18/18 14:01 Dose: Not Given Pantoprazole Sodium (Protonix Ec Tab) 40 mg PO 0600,1600 [facility] Last Admin: 04/18/18 05:46 Dose: 40 mg Sevelamer HCl (Renagel) 800 mg PO TID [facility] Last Admin: 04/18/18 14:01 Dose: Not Given Spironolactone (Aldactone) 50 mg PO DAILY [facility] Last Admin: 04/18/18 13:37 Dose: Not Given Trazodone HCl (Desyrel) 100 mg PO HS [facility] Last Admin: 04/17/18 22:33 Dose: 100 mg Vitamin B Complex/Vit C/Folic Acid (Nephro-Bhupinder) 1 tab PO 0800 [facility] Last Admin: 04/18/18 14:00 Dose: Not Given - Labs Labs: 04/18/18 06:10 04/18/18 06:10 PT 13.2 SECONDS (9.4-12.5) H 04/03/18 15:44 INR 1.15 04/03/18 15:44 APTT 30.7 Seconds (25.1-36.5) 04/03/18 15:44 - Additional Findings Additional findings: - Constitutional Appears: No Acute Distress - Head Exam Head Exam: NORMAL INSPECTION, ATRAUMATIC - Eye Exam Eye Exam: EOMI, PERRL - ENT Exam ENT Exam: Mucous Membranes Moist, Normal Exam - Neck Exam Neck exam: Positive for: Normal Inspection - Respiratory Exam Respiratory Exam: Clear to Auscultation Bilateral. absent: Rales, Rhonchi, Wheezes, respiratory distress - Cardiovascular Exam Cardiovascular Exam: Regular rhythm, +S1, +S2. absent: Systolic Murmur - GI/Abdominal Exam GI & Abdominal Exam: Soft. Bowel sounds heard in all 4 quadrants absent: Distended, Guarding, Rebound, Tenderness - Extremities Exam Extremities exam: Positive for: pedal edema Additional comments: 2+ edema noted on both legs -no draining/weeping/pus noted on lower extremities - Neurological Exam Neurological exam: Alert, CN II-XII Intact, Oriented x3 - Skin Skin Exam: Dry, Intact and Pallor Assessment and Plan - Assessment and Plan (Free Text) Assessment: Patient is a 52 yo F with past medical history liver failure, morbid obesity, and EtOH abuse presents to [facility] for worsening weakness and admitted for management of anemia and FELIPE with metabolic acidosis. Focusing on outpatient HD and PT at this time. Plan: Acute renal failure - improved -on HD MWF, removed 3L today -Working with watch caser for outpatient HD setup, currently under evaluation -Renal US is unremarkable -Renagel 800 mg PO TID -Strict I's and O's -Nephrology on consult, Dr. Salmeron Fever - resolved -afebrile > 48hours -positive flu type A, completed course of tamiflu -urine culture growing klebsiella and yeast, on merrem day 3 -CXR showed moderate cardiomegaly, vascular congestion -blood culture shows no growth after 5 days -procalcitonin mildly elevated Chronic lymphedema of B/L legs -podiatry on consult, no further recommendations, local wound care for now - not currently draining/weeping -repeat ext US shows possible right SFA occlusive disease, limited study due to artifact -wound culture grew Enterobacter Cloacae, E. faecalis - superficial bacteria colonizers, repeat wound culture -PT recommends [facility] -daily PT rehab Microcytic anemia -s/p total 11 units pRBCs, 2 FFPs -oral iron started -endoscopy showed 3 non bleeding gastric ulcers, largest one 8mm -iron studies shows likely iron deficiency -Head CT unremarkable -CTAP shows adenopathy of the hepatic gastric ligament -GI on consult, Dr. Melo Elevated BNP -BNP 59098 on admission -Echo showed EF of 68%, mild TR/MR, mild pulm HTN, borderline LVH Depression -Psych on consult, Dr. Ramos -continue trazodone PPX/Diet -protonix, heparin -renal diet Patient seen and case discussed with attending, Dr. Rosado <Gerry Rosado - Last Filed: 04/23/18 17:18> Objective - Vital Signs/Intake and Output Vital Signs (last 24 hours): Temp Pulse Resp BP Pulse Ox 98.4 F 91 H 18 113/49 L 96 04/23/18 13:40 04/23/18 15:34 04/23/18 13:40 04/23/18 15:34 04/23/18 13:40 - Medications Medications: Current Medications Acetaminophen (Tylenol 325mg Tab) 650 mg PO Q6 PRN PRN Reason: Fever >100.4 F Last Admin: 04/13/18 05:56 Dose: 650 mg Albuterol/Ipratropium (Duoneb 3 Mg/0.5 Mg (3 Ml) Ud) 3 ml IH [id number] [facility] Last Admin: 04/23/18 13:39 Dose: 3 ml Albuterol/Ipratropium (Duoneb 3 Mg/0.5 Mg (3 Ml) Ud) 3 ml IH Q2H PRN PRN Reason: Shortness of Breath Last Admin: 04/21/18 00:50 Dose: 3 ml Alprazolam (Xanax) 0.25 mg PO TID PRN; Protocol PRN Reason: Anxiety Last Admin: 04/23/18 13:45 Dose: 0.25 mg Benzonatate (Tessalon Perles) 100 mg PO TID PRN PRN Reason: Cough Last Admin: 04/23/18 16:12 Dose: 100 mg Darbepoetin Fletcher (Aranesp) 200 mcg IVP QWK [facility] Ergocalciferol (Drisdol 50,000 Intl Units Cap) 1 cap PO Q7D [facility] Last Admin: 04/22/18 17:07 Dose: 1 cap Heparin Sodium (Porcine) (Heparin) 5,000 units SC Q8 [facility]; Protocol Last Admin: 04/23/18 13:46 Dose: 5,000 units Heparin Sodium (Porcine) (Heparin) 2,000 units IVP F [facility]; Protocol Iron Sucrose 100 mg/ Sodium (Chloride) 105 mls @ 210 mls/hr IVPB QWK [facility] Stop: 05/18/18 10:29 Last Admin: 04/20/18 13:06 Dose: 210 mls/hr Midodrine (Proamatine) 10 mg PO MWF [facility] Last Admin: 04/23/18 10:41 Dose: Not Given Multi-Ingredient Ointment (Hydrophor Oint) 0 gm TOP Q12 [facility] Last Admin: 04/23/18 10:41 Dose: Not Given Nystatin (Nystop Topical Powder) 0 gm TOP BID [facility] Last Admin: 04/23/18 10:41 Dose: Not Given Pantoprazole Sodium (Protonix Ec Tab) 40 mg PO 0600,1600 [facility] Last Admin: 04/23/18 15:04 Dose: 40 mg Sevelamer HCl (Renagel) 800 mg PO TID [facility] Last Admin: 04/23/18 13:45 Dose: 800 mg Spironolactone (Aldactone) 50 mg PO DAILY [facility] Last Admin: 04/23/18 10:41 Dose: Not Given Trazodone HCl (Desyrel) 100 mg PO HS [facility] Last Admin: 04/22/18 21:32 Dose: 100 mg Vitamin B Complex/Vit C/Folic Acid (Nephro-Bhupinder) 1 tab PO 0800 [facility] Last Admin: 04/23/18 08:48 Dose: 1 tab - Labs Labs: 04/22/18 07:00 04/22/18 07:00 PT 13.2 SECONDS (9.4-12.5) H 04/03/18 15:44 INR 1.15 04/03/18 15:44 APTT 30.7 Seconds (25.1-36.5) 04/03/18 15:44 Attending/Attestation - Attestation I have personally seen and examined this patient.: Yes I have fully participated in the care of the patient.: Yes I have reviewed all pertinent clinical information, including history, physical exam and plan: Yes Notes (Text): 52 y/o f with PMH of EtOH abuse, liver failure. Acute renal failure Acute blood loss anemia GI Bleed Chronic B/L lymphedema c/w HD as per nephro s/p EGD which showed 3 non-bleeding gastric ulcers monitor Hgb closely PT on board
[2018-04-18] MEDS: MEROPENEM 500 MG in NS 500 MG/50 ML BAG IVPB SCH (14:42)
--- NOTE | 2018-04-18 15:42 | CP.PCM.PN ---
Subjective - Date & Time of Evaluation Date of Evaluation: 04/18/18 Time of Evaluation: 15:41 - Subjective Subjective: Nephrology Consultation Note: Assessment: stable oligoanuric Acute Kidney Injury (N17.9) likely due to ATN, pre-renal state, intrasvasc hypovolemia, impaired renal perfusion, HD 04/05/18: first session anasarca severe symptomatic anemia due to GI bleed with gastric ulcers mild hyperkalemia and HAGMA, hyperphos hx of cirrhosis and etoh intra-ab lymphadenopathy morbid obesity acute influenza Plan HD tolerated well so far, on MWF schedule Maintain hemodynamics stable. Avoid hypotension. Patient not on ACEI/ARB due to recent FELIPE. added midodrine pre HD Monitor Input/Output, daily weights and renal function with basic metabolic pa madeleine added phos binders PRBC as needed. s/p 1 gram IV iron. on weekly aranesp GI consult pt on PPI work up for FELIPE and anemia as ordered. GN work up neg hence will defer kidney biopsy. also pt with liver disease and morbidly obese. started weekly vit d consider further work up for ascites. started on aldactone 50 mg/d to reduce portal HTN Dose meds/antibiotics for reduced GFR. Avoid fleets enema/magnesium based laxatives. Avoid nephrotoxins/NSAIDs/ iodinated contrast (unless needed emergently) Glycemic control Further work up/management as per primary team SW for outpt hd placement. can f/up as outpt for renal recovery. stable for d/c from renal perspective once arranged for outpt HD. Av access will be planned later as outpt if no renal recovery in 3 months Thanks for allowing me to participate in care of your patient. Will follow patient with you. Please call if any Qs. had d/w team Dr Kenji Salmeron Office: [phone] Chief Complaint; fatigue Reason for consult: Acute Kidney Injury HPI: Pt is a 52 F with hx of alcoholism in past, cirrhosis (pt states got better on its own in past) but no regular follow up with PMD presented with complaints of fatigue and tiredness for last few days, found to have severe anemia and FELIPE Denies OTC/herbal meds but NSAIDs as alleve for last few days No recent iodinated contrast exposure. Noted obvious episodes of low BP. reports chronic leg swelling but more now denies smoking or etoh now ROS: c/o swelling in leg. had gastric ulcers on EGD Cardiovascular: No chest pain. Pulmonary: c/o shortness of breath with c ough Gastrointestinal: denies abdominal pain No nausea. No vomiting. Genitourinary: No pain while urinating. Denies blood in urine. All other negative except as mentioned in HPI Physical Examination: General Appearance: Comfortable, in no acute respiratory distress, co-operative . morbid obese Vitals reviewed and noted as below Head; Atraumatic, normocephalic ENT: no ulcers no thrush. Tongue is midline. Oropharynx: no rash or ulcers. EYES: Pupils are equal, round and reactive to light accommodation. Eye muscles and extraocular movement intact. Sclera is anicteric. Neck; supple no lymphadenopathy, no thyromegaly or bruit Lungs: Normal respiratory rate/effort. Breath sounds bilateral with wheeze Heart: Normal rate. s1s2 normal. No rub or gallop. Extremities: 2+ edema. Neurological: Patient is alert, awake and oriented to person, place and time. No focal deficit. Strength bilateral appropriate and equal Skin: Warm and dry. Normal turgor. spider angioma rash upper chest. Palpitation: Normal elasticity for age Abdomen: Abdomen is soft. Bowel sounds +. There is no abdominal tenderness, no guarding/rigidity no organomegaly. limited due to obesity and abd wall edema Psych: normal insight and normal affect/mood MSK: no joint tenderness or swelling. Digits and nails normal, no deformity : kidney or bladder not palpable. has access as permacath Labs/imaging reviewed. Past medical history, past surgical history, family history, social history, allergy reviewed and noted as below Family hx: no hx of CKD. Rest non-contributory fena 0.3% intra-ab lymphadenopathy Objective - Vital Signs/Intake and Output Vital Signs (last 24 hours): Temp Pulse Resp BP Pulse Ox 97.8 F 47 L 20 116/54 L 97 04/18/18 13:54 04/18/18 13:54 04/18/18 13:54 04/18/18 13:54 04/18/18 13:54 Intake and Output: 04/18/18 04/18/18 06:59 18:59 Intake Total 480 Output Total 900 Balance -420 - Medications Medications: Current Medications Acetaminophen (Tylenol 325mg Tab) 650 mg PO Q6 PRN PRN Reason: Fever >100.4 F Last Admin: 04/13/18 05:56 Dose: 650 mg Albuterol/Ipratropium (Duoneb 3 Mg/0.5 Mg (3 Ml) Ud) 3 ml IH [id number] [facility] Last Admin: 04/18/18 07:28 Dose: 3 ml Albuterol/Ipratropium (Duoneb 3 Mg/0.5 Mg (3 Ml) Ud) 3 ml IH Q2H PRN PRN Reason: Shortness of Breath Last Admin: 04/10/18 23:56 Dose: 3 ml Alprazolam (Xanax) 0.25 mg PO TID PRN; Protocol PRN Reason: Anxiety Last Admin: 04/18/18 13:58 Dose: 0.25 mg Darbepoetin Fletcher (Aranesp) 150 mcg IVP QWK [facility] Last Admin: 04/16/18 08:56 Dose: 150 mcg Ergocalciferol (Drisdol 50,000 Intl Units Cap) 1 cap PO Q7D [facility] Last Admin: 04/15/18 14:05 Dose: 1 cap Ferrous Sulfate (Feosol) 324 mg PO WM [facility] Last Admin: 04/18/18 13:38 Dose: Not Given Heparin Sodium (Porcine) (Heparin) 5,000 units SC Q8 [facility]; Protocol Last Admin: 04/18/18 14:41 Dose: 5,000 units Meropenem/Sodium Chloride (Merrem Iv 500 Mg/Ns 50 Ml) 500 mg in 50 mls @ 100 ml s/hr IVPB Q24H [facility]; Protocol Last Admin: 04/18/18 14:42 Dose: 100 mls/hr Midodrine (Proamatine) 10 mg PO MWF [facility] Last Admin: 04/18/18 14:00 Dose: Not Given Multi-Ingredient Ointment (Hydrophor Oint) 0 gm TOP Q12 [facility] Nystatin (Nystop Topical Powder) 0 gm TOP BID [facility] Last Admin: 04/18/18 14:00 Dose: Not Given Pantoprazole Sodium (Protonix Ec Tab) 40 mg PO 0600,1600 [facility] Last Admin: 04/18/18 05:46 Dose: 40 mg Sevelamer HCl (Renagel) 800 mg PO TID [facility] Last Admin: 04/18/18 14:42 Dose: 800 mg Spironolactone (Aldactone) 50 mg PO DAILY [facility] Last Admin: 04/18/18 13:37 Dose: Not Given Trazodone HCl (Desyrel) 100 mg PO HS [facility] Last Admin: 04/17/18 22:33 Dose: 100 mg Vitamin B Complex/Vit C/Folic Acid (Nephro-Bhupinder) 1 tab PO 0800 [facility] Last Admin: 04/18/18 14:00 Dose: Not Given - Labs Labs: 04/18/18 06:10 04/18/18 06:10 PT 13.2 SECONDS (9.4-12.5) H 04/03/18 15:44 INR 1.15 04/03/18 15:44 APTT 30.7 Seconds (25.1-36.5) 04/03/18 15:44
--- NOTE | 2018-04-18 21:21 | PN ---
DATE: 04/18/2018 SUBJECTIVE: The patient in bed, in no acute distress. PHYSICAL EXAMINATION VITAL SIGNS: Temperature is 97, blood pressure is 116/50, respiratory rate 20, heart rate of 84. HEENT: Unremarkable. NECK: Supple. LUNGS: Have decreased breath sounds. HEART: Normal S1, S2. ABDOMEN: Soft, nontender. LABORATORY DATA: Reveals a white count of 5.4, hemoglobin of 8, and platelets of 91. BUN of 35 and creatinine of 3.1 Procalcitonin is 0.77. Urinalysis is noted. Immunology is reviewed. ASSESSMENT AND PLAN: This is a 52-year-old female with sepsis with influenza A and Klebsiella urinary tract infection and chronic lymphedema without any evidence of cellulitis of the lower extremity, on meropenem, today is day #3 of 3 to 5 days of meropenem. Orion Thompson MD
[2018-04-18] MEDS: Petrolatum-Mineral Oil Oint (100gm) TOP SCH (23:09)
[2018-04-19] MEDS ORDERED: POLYETHYLENE GLYCOL 3350 17 GM/Dose PACKET PO STA (02:02)
[2018-04-19] MEDS ORDERED: POLYETHYLENE GLYCOL 3350 17 GM/Dose PACKET ONE (02:20)
[2018-04-19] MEDS: Albuterol-Ipratrop 3 mg / 0.5 (3 ml) UD IH SCH ×4 (02:45→19:37)
[2018-04-19] MEDS: Pantoprazole 40 mg EC Tab PO SCH ×2 (06:04→15:10)
[2018-04-19 07:07] LABS: BASO # 0.02 K/mm3 (0.0-2.0); BASO % 0.3 % (0.0-3.0); EOS # 0.4 (0.0-0.7); EOS % 5.3 % (1.5-5.0); GRAN # 5.62 (1.4-6.5); LYMPH # 0.9 (1.2-3.4); LYMPH % 11.3 % (22.0-35.0); MEAN CORPUSCULAR HEMOGLOBIN 27.4 pg (25.0-35.0); MEAN CORPUSCULAR HGB CONC 30.8 g/dl (31.0-37.0); MONO # 0.7 (0.1-0.6); MONO % 9.1 % (1.0-6.0); RBC 3.28 10^6/uL (3.5-6.1); RED CELL DISTRIBUTION WIDTH 21.3 % (11.5-14.5); WHITE BLOOD COUNT 7.6 10^3/uL (4.5-11.0)
[2018-04-19 07:26] LABS: ALB/GLOB RATIO 0.6 (1.1-1.8); ALBUMIN 2.1 g/dL (3.0-4.8); CALCIUM 7.7 mg/dL (8.4-10.5)
[2018-04-19] MEDS: Multivitamin Vitamin B Complex (Nephro-Vite) Tab PO SCH (10:10)
[2018-04-19] MEDS: Petrolatum-Mineral Oil Oint (100gm) TOP SCH ×2 (10:11→21:47)
[2018-04-19] MEDS: Nystatin 100,000 Units/gm Topical Pow(15 gm) TOP SCH (10:12)
--- NOTE | 2018-04-19 13:12 | CP.PCM.PN ---
Subjective - Date & Time of Evaluation Date of Evaluation: 04/19/18 Time of Evaluation: 13:10 - Subjective Subjective: Nephrology Consultation Note: Assessment: stable oligoanuric Acute Kidney Injury (N17.9) likely due to ATN, pre-renal state, intrasvasc hypovolemia, impaired renal perfusion, HD 04/05/18: first session anasarca severe symptomatic anemia due to GI bleed with gastric ulcers mild hyperkalemia and HAGMA, hyperphos hx of cirrhosis and etoh intra-ab lymphadenopathy morbid obesity acute influenza Plan HD tolerated well so far, on MWF schedule. check 24 hr crcl. pt also started on lasix. urine output better Maintain hemodynamics stable. Avoid hypotension. Patient not on ACEI/ARB due to recent FELIPE. added midodrine pre HD Monitor Input/Output, daily weights and renal function with basic metabolic panel added phos binders PRBC as needed. s/p 1 gram IV iron, now on weekly aranesp/IV iron GI consult, pt on PPI work up for FELIPE and anemia as ordered. GN work up neg hence will defer kidney biopsy. also pt with liver disease and morbidly obese. started weekly vit d consider further work up for ascites. started on aldactone 50 mg/d to reduce portal HTN Dose meds/antibiotics for reduced GFR. Avoid fleets enema/magnesium based laxat harsha. Avoid nephrotoxins/NSAIDs/ iodinated contrast (unless needed emergently) Glycemic control Further work up/management as per primary team SW for outpt hd placement. can f/up as outpt for renal recovery. stable for d/c from renal perspective once arranged for outpt HD. Av access will be planned later as outpt if no renal recovery in 3 months Thanks for allowing me to participate in care of your patient. Will follow patient with you. Please call if any Qs. had d/w team Dr Kenji Salmeron Office: [phone] Chief Complaint; fatigue Reason for consult: Acute Kidney Injury HPI: Pt is a 52 F with hx of alcoholism in past, cirrhosis (pt states got better on its own in past) but no regular follow up with PMD presented with complaints of fatigue and tiredness for last few days, found to have severe anemia and FELIPE Denies OTC/herbal meds but NSAIDs as alleve for last few days No recent iodinated contrast exposure. Noted obvious episodes of low BP. reports chronic leg swelling but more now denies smoking or etoh now ROS: c/o swelling in leg. had gastric ulcers on EGD Cardiovascular: No chest pain. Pulmonary: improved shortness of breath with cough Gastrointestinal: denies abdominal pain No nausea. No vomiting. Genitourinary: No pain while urinating. Denies blood in urine. All other negative except as mentioned in HPI Physical Examination: General Appearance: Comfortable, in no acute respiratory distress, co-operative . morbid obese Vitals reviewed and noted as below Head; Atraumatic, normocephalic ENT: no ulcers no thrush. Tongue is midline. Oropharynx: no rash or ulcers. EYES: Pupils are equal, round and reactive to light accommodation. Eye muscles and extraocular movement intact. Sclera is anicteric. Neck; supple no lymphadenopathy, no thyromegaly or bruit Lungs: Normal respiratory rate/effort. Breath sounds bilateral with wheeze Heart: Normal rate. s1s2 normal. No rub or gallop. Extremities: 2+ edema. Neurological: Patient is alert, awake and oriented to person, place and time. No focal deficit. Strength bilateral appropriate and equal Skin: Warm and dry. Normal turgor. spider angioma rash upper chest. Palpitation: Normal elasticity for age Abdomen: Abdomen is soft. Bowel sounds +. There is no abdominal tenderness, no guarding/rigidity no organomegaly. limited due to obesity and abd wall edema Psych: normal insight and normal affect/mood MSK: no joint tenderness or swelling. Digits and nails normal, no deformity : kidney or bladder not palpable. has access as permacath Labs/imaging reviewed. Past medical history, past surgical history, family history, social history, allergy reviewed and noted as below Family hx: no hx of CKD. Rest non-contributory fena 0.3% intra-ab lymphadenopathy Objective - Vital Signs/Intake and Output Vital Signs (last 24 hours): Temp Pulse Resp BP Pulse Ox 98.4 F 79 20 128/60 97 04/19/18 06:00 04/19/18 06:00 04/19/18 06:00 04/19/18 12:07 04/19/18 06:00 - Medications Medications: Current Medications Acetaminophen (Tylenol 325mg Tab) 650 mg PO Q6 PRN PRN Reason: Fever >100.4 F Last Admin: 12/28/18 05:56 Dose: 650 mg Albuterol/Ipratropium (Duoneb 3 Mg/0.5 Mg (3 Ml) Ud) 3 ml IH [id number] [facility] Last Admin: 04/19/18 07:20 Dose: 3 ml Albuterol/Ipratropium (Duoneb 3 Mg/0.5 Mg (3 Ml) Ud) 3 ml IH Q2H PRN PRN Reason: Shortness of Breath Last Admin: 04/10/18 23:56 Dose: 3 ml Alprazolam (Xanax) 0.25 mg PO TID PRN; Protocol PRN Reason: Anxiety Last Admin: 04/18/18 13:58 Dose: 0.25 mg Darbepoetin Fletcher (Aranesp) 150 mcg IVP QWK [facility] Last Admin: 04/16/18 08:56 Dose: 150 mcg Ergocalciferol (Drisdol 50,000 Intl Units Cap) 1 cap PO Q7D [facility] Last Admin: 04/15/18 14:05 Dose: 1 cap Furosemide (Lasix) 40 mg IVP DAILY [facility] Last Admin: 04/19/18 12:07 Dose: 40 mg Heparin Sodium (Porcine) (Heparin) 5,000 units SC Q8 [facility]; Protocol Last Admin: 04/19/18 06:04 Dose: 5,000 units Meropenem/Sodium Chloride (Merrem Iv 500 Mg/Ns 50 Ml) 500 mg in 50 mls @ 100 mls/hr IVPB Q24H [facility]; Protocol Last Admin: 04/18/18 14:42 Dose: 100 mls/hr Iron Sucrose 100 mg/ Sodium (Chloride) 105 mls @ 210 mls/hr IVPB QWK [facility] Stop: 05/18/18 10:29 Midodrine (Proamatine) 10 mg PO MWF [facility] Last Admin: 04/18/18 14:00 Dose: Not Given Multi-Ingredient Ointment (Hydrophor Oint) 0 gm TOP Q12 [facility] Last Admin: 04/19/18 10:11 Dose: 1 units Nystatin (Nystop Topical Powder) 0 gm TOP BID [facility] Last Admin: 04/19/18 10:12 Dose: 1 appl Pantoprazole Sodium (Protonix Ec Tab) 40 mg PO 0600,1600 [facility] Last Admin: 04/19/18 06:04 Dose: 40 mg Sevelamer HCl (Renagel) 800 mg PO TID [facility] Last Admin: 04/19/18 10:11 Dose: 800 mg Spironolactone (Aldactone) 50 mg PO DAILY [facility] Last Admin: 04/19/18 10:10 Dose: 50 mg Trazodone HCl (Desyrel) 100 mg PO HS [facility] Last Admin: 04/18/18 23:09 Dose: 100 mg Vitamin B Complex/Vit C/Folic Acid (Nephro-Bhupinder) 1 tab PO 0800 [facility] Last Admin: 04/19/18 10:10 Dose: 1 tab - Labs Labs: 04/19/18 06:20 04/19/18 06:20 PT 13.2 SECONDS (9.4-12.5) H 04/03/18 15:44 INR 1.15 04/03/18 15:44 APTT 30.7 Seconds (25.1-36.5) 04/03/18 15:44
[2018-04-19] MEDS: MEROPENEM 500 MG in NS 500 MG/50 ML BAG IVPB SCH (13:45)
--- NOTE | 2018-04-19 15:18 | CP.PCM.PN ---
<Nhung Anne - Last Filed: 04/19/18 15:15> Subjective - Date & Time of Evaluation Date of Evaluation: 04/19/18 Time of Evaluation: 10:47 - Subjective Subjective: Nhung Anne PGY1 Hospital Progress Note Patient seen and examined at bedside this morning. No acute events reported overnight. Offers no complaints today. Objective - Vital Signs/Intake and Output Vital Signs (last 24 hours): Temp Pulse Resp BP Pulse Ox 99.2 F 94 H 20 124/54 L 98 04/19/18 14:00 04/19/18 14:00 04/19/18 14:00 04/19/18 14:00 04/19/18 14:00 - Medications Medications: Current Medications Acetaminophen (Tylenol 325mg Tab) 650 mg PO Q6 PRN PRN Reason: Fever >100.4 F Last Admin: 04/13/18 05:56 Dose: 650 mg Albuterol/Ipratropium (Duoneb 3 Mg/0.5 Mg (3 Ml) Ud) 3 ml IH [id number] [facility] Last Admin: 04/19/18 13:22 Dose: 3 ml Albuterol/Ipratropium (Duoneb 3 Mg/0.5 Mg (3 Ml) Ud) 3 ml IH Q2H PRN PRN Reason: Shortness of Breath Last Admin: 04/10/18 23:56 Dose: 3 ml Alprazolam (Xanax) 0.25 mg PO TID PRN; Protocol PRN Reason: Anxiety Last Admin: 04/18/18 13:58 Dose: 0.25 mg Darbepoetin Fletcher (Aranesp) 150 mcg IVP QWK [facility] Last Admin: 04/16/18 08:56 Dose: 150 mcg Ergocalciferol (Drisdol 50,000 Intl Units Cap) 1 cap PO Q7D [facility] Last Admin: 04/15/18 14:05 Dose: 1 cap Furosemide (Lasix) 40 mg IVP DAILY [facility] Last Admin: 04/19/18 12:07 Dose: 40 mg Heparin Sodium (Porcine) (Heparin) 5,000 units SC Q8 [facility]; Protocol Last Admin: 04/19/18 13:41 Dose: 5,000 units Meropenem/Sodium Chloride (Merrem Iv 500 Mg/Ns 50 Ml) 500 mg in 50 mls @ 100 mls/hr IVPB Q24H [facility]; Protocol Last Admin: 04/19/18 13:45 Dose: 100 mls/hr Iron Sucrose 100 mg/ Sodium (Chloride) 105 mls @ 210 mls/hr IVPB QWK [facility] Stop: 05/18/18 10:29 Midodrine (Proamatine) 10 mg PO MWF [facility] Last Admin: 04/18/18 14:00 Dose: Not Given Multi-Ingredient Ointment (Hydrophor Oint) 0 gm TOP Q12 [facility] Last Admin: 04/19/18 10:11 Dose: 1 units Nystatin (Nystop Topical Powder) 0 gm TOP BID [facility] Last Admin: 04/19/18 10:12 Dose: 1 appl Pantoprazole Sodium (Protonix Ec Tab) 40 mg PO 0600,1600 [facility] Last Admin: 04/19/18 15:10 Dose: 40 mg Sevelamer HCl (Renagel) 800 mg PO TID [facility] Last Admin: 04/19/18 13:41 Dose: 800 mg Spironolactone (Aldactone) 50 mg PO DAILY [facility] Last Admin: 04/19/18 10:10 Dose: 50 mg Trazodone HCl (Desyrel) 100 mg PO HS [facility] Last Admin: 04/18/18 23:09 Dose: 100 mg Vitamin B Complex/Vit C/Folic Acid (Nephro-Bhupinder) 1 tab PO 0800 [facility] Last Admin: 04/19/18 10:10 Dose: 1 tab - Labs Labs: 04/19/18 06:20 04/19/18 06:20 PT 13.2 SECONDS (9.4-12.5) H 04/03/18 15:44 INR 1.15 04/03/18 15:44 APTT 30.7 Seconds (25.1-36.5) 04/03/18 15:44 - Additional Findings Additional findings: - Constitutional Appears: No Acute Distress - Head Exam Head Exam: NORMAL INSPECTION, ATRAUMATIC - Eye Exam Eye Exam: EOMI, PERRL - ENT Exam ENT Exam: Mucous Membranes Moist, Normal Exam - Neck Exam Neck exam: Positive for: Normal Inspection - Respiratory Exam Respiratory Exam: Clear to Auscultation Bilateral. absent: Rales, Rhonchi, Wheezes, respiratory distress - Cardiovascular Exam Cardiovascular Exam: Regular rhythm, +S1, +S2. absent: Systolic Murmur - GI/Abdominal Exam GI & Abdominal Exam: Soft. Bowel sounds heard in all 4 quadrants absent: Distended, Guarding, Rebound, Tenderness - Extremities Exam Extremities exam: Positive for: pedal edema Additional comments: 2+ edema noted on both legs -no draining/weeping/pus noted on lower extremities - Neurological Exam Neurological exam: Alert, CN II-XII Intact, Oriented x3 - Skin Skin Exam: Dry, Intact and Pallor Assessment and Plan - Assessment and Plan (Free Text) Assessment: Patient is a 52 yo F with past medical history liver failure, morbid obesity, an d EtOH abuse presents to [facility] for worsening weakness and admitted for management of anemia and FELIPE with metabolic acidosis. Focusing on outpatient HD and PT at this time. Plan: Acute renal failure - improved -on HD MWF, next planned for tomorrow -continuing to work with community case manager for outpatient HD setup, working on placement -started on lasix 40mg IV daily -Renal US is unremarkable -Renagel 800 mg PO TID -Strict I's and O's -Nephrology on consult, Dr. Salmeron Fever - resolved -afebrile > 48hours -positive flu type A, completed course of tamiflu -urine culture growing klebsiella and yeast, on merrem day 4 -CXR showed moderate cardiomegaly, vascular congestion -blood culture shows no growth after 5 days -procalcitonin mildly elevated Chronic lymphedema of B/L legs -podiatry on consult, no further recommendations, local wound care for now - not currently draining/weeping -repeat ext US shows possible right SFA occlusive disease, limited study due to artifact -wound culture grew Enterobacter Cloacae, E. faecalis - superficial bacteria colonizers, repeat wound culture -PT recommends [facility] -daily PT rehab Microcytic anemia -s/p total 11 units pRBCs, 2 FFPs -oral iron started -endoscopy showed 3 non bleeding gastric ulcers, largest one 8mm -iron studies shows likely iron deficiency -Head CT unremarkable -CTAP shows adenopathy of the hepatic gastric ligament -GI on consult, Dr. Melo Elevated BNP -BNP [id number] on admission -Echo showed EF of 68%, mild TR/MR, mild pulm HTN, borderline LVH Depression -Psych on consult, Dr. Ramos -continue trazodone PPX/Diet -protonix, heparin -renal diet Patient seen and case discussed with attending, Dr. Heredia <Adrian Heredia - Last Filed: 04/19/18 15:22> Objective - Vital Signs/Intake and Output Vital Signs (last 24 hours): Temp Pulse Resp BP Pulse Ox 99.2 F 94 H 20 124/54 L 98 04/19/18 14:00 04/19/18 14:00 04/19/18 14:00 04/19/18 14:00 04/19/18 14:00 - Medications Medications: Current Medications Acetaminophen (Tylenol 325mg Tab) 650 mg PO Q6 PRN PRN Reason: Fever >100.4 F Last Admin: 04/13/18 05:56 Dose: 650 mg Albuterol/Ipratropium (Duoneb 3 Mg/0.5 Mg (3 Ml) Ud) 3 ml IH [id number] [facility] Last Admin: 04/19/18 13:22 Dose: 3 ml Albuterol/Ipratropium (Duoneb 3 Mg/0.5 Mg (3 Ml) Ud) 3 ml IH Q2H PRN PRN Reason: Shortness of Breath Last Admin: 04/10/18 23:56 Dose: 3 ml Alprazolam (Xanax) 0.25 mg PO TID PRN; Protocol PRN Reason: Anxiety Last Admin: 04/18/18 13:58 Dose: 0.25 mg Darbepoetin Fletcher (Aranesp) 150 mcg IVP QWK [facility] Last Admin: 04/16/18 08:56 Dose: 150 mcg Ergocalciferol (Drisdol 50,000 Intl Units Cap) 1 cap PO Q7D [facility] Last Admin: 04/15/18 14:05 Dose: 1 cap Furosemide (Lasix) 40 mg IVP DAILY [facility] Last Admin: 04/19/18 12:07 Dose: 40 mg Heparin Sodium (Porcine) (Heparin) 5,000 units SC Q8 [facility]; Protocol Last Admin: 04/19/18 13:41 Dose: 5,000 units Meropenem/Sodium Chloride (Merrem Iv 500 Mg/Ns 50 Ml) 500 mg in 50 mls @ 100 ml s/hr IVPB Q24H [facility]; Protocol Last Admin: 04/19/18 13:45 Dose: 100 mls/hr Iron Sucrose 100 mg/ Sodium (Chloride) 105 mls @ 210 mls/hr IVPB QWK [facility] Stop: 02/01/19 10:29 Midodrine (Proamatine) 10 mg PO MWF [facility] Last Admin: 04/18/18 14:00 Dose: Not Given Multi-Ingredient Ointment (Hydrophor Oint) 0 gm TOP Q12 [facility] Last Admin: 04/19/18 10:11 Dose: 1 units Nystatin (Nystop Topical Powder) 0 gm TOP BID [facility] Last Admin: 04/19/18 10:12 Dose: 1 appl Pantoprazole Sodium (Protonix Ec Tab) 40 mg PO 0600,1600 [facility] Last Admin: 04/19/18 15:10 Dose: 40 mg Sevelamer HCl (Renagel) 800 mg PO TID [facility] Last Admin: 04/19/18 13:41 Dose: 800 mg Spironolactone (Aldactone) 50 mg PO DAILY [facility] Last Admin: 04/19/18 10:10 Dose: 50 mg Trazodone HCl (Desyrel) 100 mg PO HS [facility] Last Admin: 04/18/18 23:09 Dose: 100 mg Vitamin B Complex/Vit C/Folic Acid (Nephro-Bhupinder) 1 tab PO 0800 [facility] Last Admin: 04/19/18 10:10 Dose: 1 tab - Labs Labs: 04/19/18 06:20 04/19/18 06:20 PT 13.2 SECONDS (9.4-12.5) H 04/03/18 15:44 INR 1.15 04/03/18 15:44 APTT 30.7 Seconds (25.1-36.5) 04/03/18 15:44 Attending/Attestation - Attestation I have personally seen and examined this patient.: Yes I have fully participated in the care of the patient.: Yes I have reviewed all pertinent clinical information, including history, physical exam and plan: Yes
--- NOTE | 2018-04-19 20:59 | PN ---
DATE: 04/19/2018 SUBJECTIVE: The patient is in bed, in no acute distress, nontoxic. PHYSICAL EXAMINATION VITAL SIGNS: Temperature is 99, blood pressure is 120/50, respiratory rate of 20, heart rate of 94. HEENT: Unremarkable. NECK: Supple. LUNGS: Have decreased breath sounds. HEART: Normal S1 and S2. ABDOMEN: Soft. LABORATORY EXAMINATION: Reveals white count of 7.6, hemoglobin of 9; BUN of 26, creatinine of 2.4. Urinalysis is noted. Toxicology is noted. Serology is reviewed. REVIEW OF ORDERS: Reveals the patient to be on meropenem and Tamiflu has been completed. ASSESSMENT AND PLAN: This is a 52-year-old female seen earlier today with sepsis, with influenza A, and Klebsiella urinary tract infection, has completed the Tamiflu therapy, currently on meropenem; today is day #4. Would complete 3-5 days of antibiotics, day #4 of meropenem. Orion Thompson MD
[2018-04-20] MEDS: Albuterol-Ipratrop 3 mg / 0.5 (3 ml) UD IH SCH ×4 (01:10→20:32)
[2018-04-20] MEDS: Pantoprazole 40 mg EC Tab PO SCH ×2 (05:43→17:24)
[2018-04-20 06:48] LABS: BASO # 0.02 K/mm3 (0.0-2.0); BASO % 0.3 % (0.0-3.0); EOS # 0.4 (0.0-0.7); EOS % 5.2 % (1.5-5.0); GRAN # 5.56 (1.4-6.5); HEMOGLOBIN 8.6 g/dL (12.0-16.0); LYMPH # 1.1 (1.2-3.4); LYMPH % 13.9 % (22.0-35.0); MEAN CELL VOLUME 88.7 fl (80.0-105.0); MEAN CORPUSCULAR HGB CONC 30.5 g/dl (31.0-37.0); MEAN PLATELET VOLUME 8.8 fl (7.0-11.0); MONO # 0.8 (0.1-0.6); MONO % 9.6 % (1.0-6.0); RBC 3.18 10^6/uL (3.5-6.1); RED CELL DISTRIBUTION WIDTH 21.1 % (11.5-14.5); WHITE BLOOD COUNT 7.8 10^3/uL (4.5-11.0)
[2018-04-20 07:15] LABS: ALB/GLOB RATIO 0.6 (1.1-1.8); CALCIUM 7.7 mg/dL (8.4-10.5)
--- NOTE | 2018-04-20 11:58 | CP.PCM.PN ---
<Nhung Anne - Last Filed: 04/20/18 11:57> Subjective - Date & Time of Evaluation Date of Evaluation: 04/20/18 Time of Evaluation: 10:22 - Subjective Subjective: Nhung Anne PGY1 Hospital Progress Note Patient seen and examined at bedside this morning. No acute events reported overnight. Offers no complaints today. Plan for HD today. Objective - Vital Signs/Intake and Output Vital Signs (last 24 hours): Temp Pulse Resp BP Pulse Ox 99.1 F 88 20 120/59 L 99 04/20/18 06:00 04/20/18 06:00 04/20/18 06:00 04/20/18 06:00 04/20/18 06:00 Intake and Output: 04/20/18 04/20/18 06:59 18:59 Intake Total 780 Output Total 300 Balance 480 - Medications Medications: Current Medications Acetaminophen (Tylenol 325mg Tab) 650 mg PO Q6 PRN PRN Reason: Fever >100.4 F Last Admin: 04/13/18 05:56 Dose: 650 mg Albuterol/Ipratropium (Duoneb 3 Mg/0.5 Mg (3 Ml) Ud) 3 ml IH [id number] MAKAYLA Last Admin: 04/20/18 07:29 Dose: 3 ml Albuterol/Ipratropium (Duoneb 3 Mg/0.5 Mg (3 Ml) Ud) 3 ml IH Q2H PRN PRN Reason: Shortness of Breath Last Admin: 04/10/18 23:56 Dose: 3 ml Alprazolam (Xanax) 0.25 mg PO TID PRN; Protocol PRN Reason: Anxiety Last Admin: 04/18/18 13:58 Dose: 0.25 mg Darbepoetin Fletcher (Aranesp) 200 mcg IVP QWK [facility] Ergocalciferol (Drisdol 50,000 Intl Units Cap) 1 cap PO Q7D [facility] Last Admin: 04/15/18 14:05 Dose: 1 cap Furosemide (Lasix) 40 mg IVP DAILY [facility] Last Admin: 04/19/18 12:07 Dose: 40 mg Heparin Sodium (Porcine) (Heparin) 5,000 units SC Q8 [facility]; Protocol Last Admin: 04/20/18 05:43 Dose: 5,000 units Meropenem/Sodium Chloride (Merrem Iv 500 Mg/Ns 50 Ml) 500 mg in 50 mls @ 100 mls/hr IVPB Q24H [facility]; Protocol Last Admin: 04/19/18 13:45 Dose: 100 mls/hr Iron Sucrose 100 mg/ Sodium (Chloride) 105 mls @ 210 mls/hr IVPB QWK [facility] Stop: 05/18/18 10:29 Midodrine (Proamatine) 10 mg PO MWF [facility] Last Admin: 04/20/18 09:24 Dose: 10 mg Multi-Ingredient Ointment (Hydrophor Oint) 0 gm TOP Q12 [facility] Last Admin: 04/19/18 21:47 Dose: 1 units Nystatin (Nystop Topical Powder) 0 gm TOP BID [facility] Last Admin: 04/19/18 10:12 Dose: 1 appl Pantoprazole Sodium (Protonix Ec Tab) 40 mg PO 0600,1600 [facility] Last Admin: 04/20/18 05:43 Dose: 40 mg Sevelamer HCl (Renagel) 800 mg PO TID [facility] Last Admin: 04/19/18 13:41 Dose: 800 mg Spironolactone (Aldactone) 50 mg PO DAILY [facility] Last Admin: 04/19/18 10:10 Dose: 50 mg Trazodone HCl (Desyrel) 100 mg PO HS [facility] Last Admin: 04/19/18 21:46 Dose: 100 mg Vitamin B Complex/Vit C/Folic Acid (Nephro-Bhupinder) 1 tab PO 0800 [facility] Last Admin: 04/19/18 10:10 Dose: 1 tab - Labs Labs: 04/20/18 06:20 04/20/18 06:20 PT 13.2 SECONDS (9.4-12.5) H 04/03/18 15:44 INR 1.15 04/03/18 15:44 APTT 30.7 Seconds (25.1-36.5) 04/03/18 15:44 - Additional Findings Additional findings: - Constitutional Appears: No Acute Distress - Head Exam Head Exam: NORMAL INSPECTION, ATRAUMATIC - Eye Exam Eye Exam: EOMI, PERRL - ENT Exam ENT Exam: Mucous Membranes Moist, Normal Exam - Neck Exam Neck exam: Positive for: Normal Inspection - Respiratory Exam Respiratory Exam: Clear to Auscultation Bilateral. absent: Rales, Rhonchi, Wheezes, respiratory distress - Cardiovascular Exam Cardiovascular Exam: Regular rhythm, +S1, +S2. absent: Systolic Murmur - GI/Abdominal Exam GI & Abdominal Exam: Soft. Bowel sounds heard in all 4 quadrants absent: Distended, Guarding, Rebound, Tenderness - Extremities Exam Extremities exam: Positive for: pedal edema Additional comments: 2+ edema noted on both legs -no draining/weeping/pus noted on lower extremities - Neurological Exam Neurological exam: Alert, CN II-XII Intact, Oriented x3 - Skin Skin Exam: Dry, Intact and Pallor Assessment and Plan - Assessment and Plan (Free Text) Assessment: Patient is a 52 yo F with past medical history liver failure, morbid obesity, and EtOH abuse presents to [facility] for worsening weakness and admitted for management of anemia and FELIPE with metabolic acidosis. Focusing on outpatient HD and PT at this time. Plan: Acute renal failure - improved -on HD MWF, receiving HD today -continuing to work with senior case manager for outpatient HD setup, working on placement -started on lasix 40mg IV daily -Renal US is unremarkable -Renagel 800 mg PO TID -Strict I's and O's -Nephrology on consult, Dr. Salmeron Fever - resolved -afebrile > 48hours -positive flu type A, completed course of tamiflu -urine culture growing klebsiella and yeast, on merrem day 4 -CXR showed moderate cardiomegaly, vascular congestion -blood culture shows no growth after 5 days -procalcitonin mildly elevated Chronic lymphedema of B/L legs -podiatry on consult, no further recommendations, local wound care for now - not currently draining/weeping -repeat ext US shows possible right SFA occlusive disease, limited study due to artifact -wound culture grew Enterobacter Cloacae, E. faecalis - superficial bacteria colonizers, repeat wound culture -PT recommends JENNA -daily PT rehab Microcytic anemia -s/p total 11 units pRBCs, 2 FFPs -oral iron started -endoscopy showed 3 non bleeding gastric ulcers, largest one 8mm -iron studies shows likely iron deficiency -Head CT unremarkable -CTAP shows adenopathy of the hepatic gastric ligament -GI on consult, Dr. Melo Elevated BNP -BNP 90306 on admission -Echo showed EF of 68%, mild TR/MR, mild pulm HTN, borderline LVH Depression -Psych on consult, Dr. Ramos -continue trazodone PPX/Diet -protonix, heparin -renal diet Patient seen and case discussed with attending, Dr. Heredia <Adrian Heredia - Last Filed: 04/20/18 14:16> Objective - Vital Signs/Intake and Output Vital Signs (last 24 hours): Temp Pulse Resp BP Pulse Ox 99.1 F 88 20 115/50 L 99 04/20/18 06:00 04/20/18 06:00 04/20/18 06:00 04/20/18 13:12 04/20/18 06:00 Intake and Output: 04/20/18 04/20/18 06:59 18:59 Intake Total 780 Output Total 300 Balance 480 - Medications Medications: Current Medications Acetaminophen (Tylenol 325mg Tab) 650 mg PO Q6 PRN PRN Reason: Fever >100.4 F Last Admin: 04/13/18 05:56 Dose: 650 mg Albuterol/Ipratropium (Duoneb 3 Mg/0.5 Mg (3 Ml) Ud) 3 ml IH [id number] MAKAYLA Last Admin: 04/20/18 13:22 Dose: 3 ml Albuterol/Ipratropium (Duoneb 3 Mg/0.5 Mg (3 Ml) Ud) 3 ml IH Q2H PRN PRN Reason: Shortness of Breath Last Admin: 04/10/18 23:56 Dose: 3 ml Alprazolam (Xanax) 0.25 mg PO TID PRN; Protocol PRN Reason: Anxiety Last Admin: 04/18/18 13:58 Dose: 0.25 mg Darbepoetin Fletcher (Aranesp) 200 mcg IVP QWK [facility] Ergocalciferol (Drisdol 50,000 Intl Units Cap) 1 cap PO Q7D [facility] Last Admin: 04/15/18 14:05 Dose: 1 cap Furosemide (Lasix) 40 mg IVP DAILY [facility] Last Admin: 04/20/18 13:12 Dose: 40 mg Heparin Sodium (Porcine) (Heparin) 5,000 units SC Q8 [facility]; Protocol Last Admin: 04/20/18 13:12 Dose: 5,000 units Meropenem/Sodium Chloride (Merrem Iv 500 Mg/Ns 50 Ml) 500 mg in 50 mls @ 100 ml s/hr IVPB Q24H [facility]; Protocol Last Admin: 04/20/18 13:17 Dose: 100 mls/hr Iron Sucrose 100 mg/ Sodium (Chloride) 105 mls @ 210 mls/hr IVPB QWK [facility] Stop: 05/18/18 10:29 Last Admin: 04/20/18 13:06 Dose: 210 mls/hr Midodrine (Proamatine) 10 mg PO MWF [facility] Last Admin: 04/20/18 09:24 Dose: 10 mg Multi-Ingredient Ointment (Hydrophor Oint) 0 gm TOP Q12 [facility] Last Admin: 04/20/18 13:10 Dose: 1 units Nystatin (Nystop Topical Powder) 0 gm TOP BID [facility] Last Admin: 04/20/18 13:11 Dose: 1 appl Pantoprazole Sodium (Protonix Ec Tab) 40 mg PO 0600,1600 [facility] Last Admin: 04/20/18 05:43 Dose: 40 mg Sevelamer HCl (Renagel) 800 mg PO TID [facility] Last Admin: 04/20/18 13:10 Dose: 800 mg Spironolactone (Aldactone) 50 mg PO DAILY [facility] Last Admin: 04/20/18 13:09 Dose: 50 mg Trazodone HCl (Desyrel) 100 mg PO HS [facility] Last Admin: 04/19/18 21:46 Dose: 100 mg Vitamin B Complex/Vit C/Folic Acid (Nephro-Bhupinder) 1 tab PO 0800 [facility] Last Admin: 04/20/18 13:10 Dose: 1 tab - Labs Labs: 04/20/18 06:20 04/20/18 06:20 PT 13.2 SECONDS (9.4-12.5) H 04/03/18 15:44 INR 1.15 04/03/18 15:44 APTT 30.7 Seconds (25.1-36.5) 04/03/18 15:44 Attending/Attestation - Attestation I have personally seen and examined this patient.: Yes I have fully participated in the care of the patient.: Yes I have reviewed all pertinent clinical information, including history, physical exam and plan: Yes
[2018-04-20] MEDS: Multivitamin Vitamin B Complex (Nephro-Vite) Tab PO SCH (13:10)
[2018-04-20] MEDS: Petrolatum-Mineral Oil Oint (100gm) TOP SCH ×2 (13:10→21:50)
[2018-04-20] MEDS: Nystatin 100,000 Units/gm Topical Pow(15 gm) TOP SCH ×2 (13:11→17:24)
--- NOTE | 2018-04-20 13:33 | CP.PCM.PN ---
Subjective - Date & Time of Evaluation Date of Evaluation: 04/20/18 Time of Evaluation: 09:35 - Subjective Subjective: For HD today, no fevers, not in distress. Objective - Vital Signs/Intake and Output Vital Signs (last 24 hours): Temp Pulse Resp BP Pulse Ox 99.1 F 88 20 120/59 L 99 04/20/18 06:00 04/20/18 06:00 04/20/18 06:00 04/20/18 06:00 04/20/18 06:00 Intake and Output: 04/20/18 04/20/18 06:59 18:59 Intake Total 780 Output Total 300 Balance 480 - Medications Medications: Current Medications Acetaminophen (Tylenol 325mg Tab) 650 mg PO Q6 PRN PRN Reason: Fever >100.4 F Last Admin: 04/13/18 05:56 Dose: 650 mg Albuterol/Ipratropium (Duoneb 3 Mg/0.5 Mg (3 Ml) Ud) 3 ml IH [id number] MAKYALA Last Admin: 04/20/18 07:29 Dose: 3 ml Albuterol/Ipratropium (Duoneb 3 Mg/0.5 Mg (3 Ml) Ud) 3 ml IH Q2H PRN PRN Reason: Shortness of Breath Last Admin: 04/10/18 23:56 Dose: 3 ml Alprazolam (Xanax) 0.25 mg PO TID PRN; Protocol PRN Reason: Anxiety Last Admin: 04/18/18 13:58 Dose: 0.25 mg Darbepoetin Fletcher (Aranesp) 150 mcg IVP QWK [facility] Last Admin: 04/16/18 08:56 Dose: 150 mcg Ergocalciferol (Drisdol 50,000 Intl Units Cap) 1 cap PO Q7D [facility] Last Admin: 04/15/18 14:05 Dose: 1 cap Furosemide (Lasix) 40 mg IVP DAILY [facility] Last Admin: 04/19/18 12:07 Dose: 40 mg Heparin Sodium (Porcine) (Heparin) 5,000 units SC Q8 [facility]; Protocol Last Admin: 04/20/18 05:43 Dose: 5,000 units Meropenem/Sodium Chloride (Merrem Iv 500 Mg/Ns 50 Ml) 500 mg in 50 mls @ 100 mls/hr IVPB Q24H [facility]; Protocol Last Admin: 04/19/18 13:45 Dose: 100 mls/hr Iron Sucrose 100 mg/ Sodium (Chloride) 105 mls @ 210 mls/hr IVPB QWK [facility] Stop: 05/18/18 10:29 Midodrine (Proamatine) 10 mg PO MWF [facility] Last Admin: 04/20/18 09:24 Dose: 10 mg Multi-Ingredient Ointment (Hydrophor Oint) 0 gm TOP Q12 [facility] Last Admin: 04/19/18 21:47 Dose: 1 units Nystatin (Nystop Topical Powder) 0 gm TOP BID [facility] Last Admin: 04/19/18 10:12 Dose: 1 appl Pantoprazole Sodium (Protonix Ec Tab) 40 mg PO 0600,1600 [facility] Last Admin: 04/20/18 05:43 Dose: 40 mg Sevelamer HCl (Renagel) 800 mg PO TID [facility] Last Admin: 04/19/18 13:41 Dose: 800 mg Spironolactone (Aldactone) 50 mg PO DAILY [facility] Last Admin: 04/19/18 10:10 Dose: 50 mg Trazodone HCl (Desyrel) 100 mg PO HS [facility] Last Admin: 04/19/18 21:46 Dose: 100 mg Vitamin B Complex/Vit C/Folic Acid (Nephro-Bhupinder) 1 tab PO 0800 [facility] Last Admin: 04/19/18 10:10 Dose: 1 tab - Labs Labs: 04/20/18 06:20 04/20/18 06:20 PT 13.2 SECONDS (9.4-12.5) H 04/03/18 15:44 INR 1.15 04/03/18 15:44 APTT 30.7 Seconds (25.1-36.5) 04/03/18 15:44 - Constitutional Appears: Chronically Ill - Head Exam Head Exam: NORMAL INSPECTION - Respiratory Exam Respiratory Exam: Decreased Breath Sounds - Cardiovascular Exam Cardiovascular Exam: +S1, +S2 - GI/Abdominal Exam GI & Abdominal Exam: Soft. absent: Tenderness Assessment and Plan - Assessment and Plan (Free Text) Plan: Assessment S/P treatment of Influenza A infection UTI with Klebsiella chronic lymphedema of lower extremities without evidence of cellulitis morbid obesity with BMI 52 chronic renal failure on dialysis R/O peripheral vascular disease Plan continue Merrem day 5 of 5 days completed 5 days of Tamiflu will continue to monitor clinically
--- NOTE | 2018-04-20 13:46 | PN ---
DATE: 04/20/2018 SUBJECTIVE: The patient is 52-year-old female with multiple medical issues including history of liver failure, morbidly obese, history of alcohol abuse. The patient was initially admitted for worsening of the weakness and inability to walk. The patient was found to have anemia, acute kidney injury with metabolic acidosis. The patient is currently on hemodialysis. The patient was seen by psychiatrist for depression as well as anxiety and inability to sleep. Decided to initiate trazodone, which slowly was increased to 100 mg at the nighttime for depression as well as for insomnia as well as small doses of Xanax for anxiety. The patient was seen today at hemodialysis. The patient presented to be alert, oriented, pleasant, cooperative. The patient reports that she still has difficulty to fall asleep and to stay asleep, but when compared with the time of admission, right now the patient feels better. In regards of anxiety, the patient feels much better. The patient reported that she has future oriented plans. She wants to feel better. The patient also reported that she wants to become stronger and be there for her daughter. Besides that the patient denied that she is feeling hopeless or helpless. PHYSICAL EXAMINATION: GENERAL: The patient is very pleasant, cooperative. VITAL SIGNS: Stable. Temperature 99.1, pulse 88, blood pressure 120/59, respirations 26, oxygen saturation is 99. MEDICATIONS: Medications reviewed. The patient is on Tylenol, DuoNeb, Xanax 0.25 mg three times as needed for anxiety. The patient is on Lasix, heparin, Merrem, ProAmatine, Nystatin, Protonix, Renagel, Aldactone, trazodone 100 mg as well as vitamin B complex. LABORATORY DATA: Labs reviewed. The patient's most recent lab was today. Hemoglobin 8.6, hematocrit 28.2. Chemistry was reviewed; sodium 130. Urinalysis reviewed, most recent was on 04/13/2018. MENTAL STATUS EXAM: The patient presented to be alert and oriented, pleasant, cooperative. Socially appropriate. Good eye contact. Mood described as I feel the same. Affect was reactive. Mood congruent. Thought process was coherent and goal directed. Thought content, the patient denied visual or tactile hallucinations. Denied paranoid ideation. The patient denied thoughts of harming herself or others. Denied intents or plan. The patient does not present to be psychotic or agitated. Insight and judgment improving. Impulses are well controlled. IMPRESSION: Rule out mood disorder due to general medical condition, rule out anxiety disorder due to general medical condition. The patient has multiple medical comorbidities. Please see medical team notes for more detailed information. PLAN: Continue trazodone. Continue Xanax. [employer] Supervisor are seeing the patient. The patient signed power of staff attorney. The patient might benefit from physical therapy evaluation. The patient reported that the last time the patient walked was two days prior to coming to the hospital. Meanwhile the patient is not in any imminent danger to self or others. Psychiatry team will be following patient every other day. Next followup is Monday. Thank you very much for letting me participate in care of your patient. Should you have any questions, give me a call back. Rachel Maradiaga MD [facility]
[2018-04-20] MEDS: MEROPENEM 500 MG in NS 500 MG/50 ML BAG IVPB SCH (14:30)
--- NOTE | 2018-04-20 14:48 | CP.PCM.PN ---
Subjective - Date & Time of Evaluation Date of Evaluation: 04/20/18 Time of Evaluation: 14:47 - Subjective Subjective: Nephrology Consultation Note: Assessment: stable oligoanuric Acute Kidney Injury (N17.9) likely due to ATN, pre-renal state, intrasvasc hypovolemia, impaired renal perfusion, HD 04/05/18: first session anasarca severe symptomatic anemia due to GI bleed with gastric ulcers mild hyperkalemia and HAGMA, hyperphos hx of cirrhosis and etoh intra-ab lymphadenopathy morbid obesity acute influenza Plan HD tolerated well so far, on MWF schedule. check 24 hr crcl. pt also started on lasix: may be d/c it since urine output low again Maintain hemodynamics stable. Avoid hypotension. Patient not on ACEI/ARB due to recent FELIPE. added midodrine pre HD Monitor Input/Output, daily weights and renal function with basic metabolic panel added phos binders PRBC as needed. s/p 1 gram IV iron, now on weekly aranesp/IV iron GI consult, pt on PPI work up for FELIPE and anemia as ordered. GN work up neg hence will defer kidney biopsy. also pt with liver disease and morbidly obese. started weekly vit d consider further work up for ascites. started on aldactone 50 mg/d to reduce portal HTN Dose meds/antibiotics for reduced GFR. Avoid fleets enema/magnesium based laxatives. Avoid nephrotoxins/NSAIDs/ iodinated contrast (unless needed emergently) Glycemic control Further work up/management as per primary team SW for outpt hd placement. can f/up as outpt for renal recovery. stable for d/c from renal perspective once arranged for outpt HD. Av access will be planned later as outpt if no renal recovery in 3 months Thanks for allowing me to participate in care of your patient. Will follow patient with you. Please call if any Qs. had d/w team Dr Kenji Salmeron Office: [phone] Chief Complaint; fatigue Reason for consult: Acute Kidney Injury HPI: Pt is a 52 F with hx of alcoholism in past, cirrhosis (pt states got better on its own in past) but no regular follow up with PMD presented with complaints of fatigue and tiredness for last few days, found to have severe anemia and FELIPE Denies OTC/herbal meds but NSAIDs as alleve for last few days No recent iodinated contrast exposure. Noted obvious episodes of low BP. reports chronic leg swelling but more now denies smoking or etoh now ROS: c/o swelling in leg. had gastric ulcers on EGD Cardiovascular: No chest pain. Pulmonary: improved shortness of breath with cough Gastrointestinal: denies abdominal pain No nausea. No vomiting. Genitourinary: No pain while urinating. Denies blood in urine. not much UOP All other negative except as mentioned in HPI Physical Examination: General Appearance: Comfortable, in no acute respiratory distress, co-operative . morbid obese Vitals reviewed and noted as below Head; Atraumatic, normocephalic ENT: no ulcers no thrush. Tongue is midline. Oropharynx: no rash or ulcers. EYES: Pupils are equal, round and reactive to light accommodation. Eye muscles and extraocular movement intact. Sclera is anicteric. Neck; supple no lymphadenopathy, no thyromegaly or bruit Lungs: Normal respiratory rate/effort. Breath sounds bilateral with wheeze Heart: Normal rate. s1s2 normal. No rub or gallop. Extremities: 2+ edema. Neurological: Patient is alert, awake and oriented to person, place and time. No focal deficit. Strength bilateral appropriate and equal Skin: Warm and dry. Normal turgor. spider angioma rash upper chest. Palpitation: Normal elasticity for age Abdomen: Abdomen is soft. Bowel sounds +. There is no abdominal tenderness, no guarding/rigidity no organomegaly. limited due to obesity and abd wall edema Psych: normal insight and normal affect/mood MSK: no joint tenderness or swelling. Digits and nails normal, no deformity : kidney or bladder not palpable. has access as permacat Labs/imaging reviewed. Past medical history, past surgical history, family history, social history, allergy reviewed and noted as below Family hx: no hx of CKD. Rest non-contributory fena 0.3% intra-ab lymphadenopathy Objective - Vital Signs/Intake and Output Vital Signs (last 24 hours): Temp Pulse Resp BP Pulse Ox 99.1 F 88 20 115/50 L 99 04/20/18 06:00 04/20/18 06:00 04/20/18 06:00 04/20/18 13:12 04/20/18 06:00 Intake and Output: 04/20/18 04/20/18 06:59 18:59 Intake Total 780 Output Total 300 Balance 480 - Medications Medications: Current Medications Acetaminophen (Tylenol 325mg Tab) 650 mg PO Q6 PRN PRN Reason: Fever >100.4 F Last Admin: 04/13/18 05:56 Dose: 650 mg Albuterol/Ipratropium (Duoneb 3 Mg/0.5 Mg (3 Ml) Ud) 3 ml IH [id number] MAKAYLA Last Admin: 04/20/18 13:22 Dose: 3 ml Albuterol/Ipratropium (Duoneb 3 Mg/0.5 Mg (3 Ml) Ud) 3 ml IH Q2H PRN PRN Reason: Shortness of Breath Last Admin: 04/10/18 23:56 Dose: 3 ml Alprazolam (Xanax) 0.25 mg PO TID PRN; Protocol PRN Reason: Anxiety Last Admin: 04/18/18 13:58 Dose: 0.25 mg Darbepoetin Fletcher (Aranesp) 200 mcg IVP QWK [facility] Ergocalciferol (Drisdol 50,000 Intl Units Cap) 1 cap PO Q7D [facility] Last Admin: 04/15/18 14:05 Dose: 1 cap Furosemide (Lasix) 40 mg IVP DAILY [facility] Last Admin: 04/20/18 13:12 Dose: 40 mg Heparin Sodium (Porcine) (Heparin) 5,000 units SC Q8 [facility]; Protocol Last Admin: 04/20/18 13:12 Dose: 5,000 units Meropenem/Sodium Chloride (Merrem Iv 500 Mg/Ns 50 Ml) 500 mg in 50 mls @ 100 mls/hr IVPB Q24H [facility]; Protocol Last Admin: 04/20/18 13:17 Dose: 100 mls/hr Iron Sucrose 100 mg/ Sodium (Chloride) 105 mls @ 210 mls/hr IVPB QWK [facility] Stop: 05/18/18 10:29 Last Admin: 04/20/18 13:06 Dose: 210 mls/hr Midodrine (Proamatine) 10 mg PO MWF [facility] Last Admin: 04/20/18 09:24 Dose: 10 mg Multi-Ingredient Ointment (Hydrophor Oint) 0 gm TOP Q12 [facility] Last Admin: 04/20/18 13:10 Dose: 1 units Nystatin (Nystop Topical Powder) 0 gm TOP BID [facility] Last Admin: 04/20/18 13:11 Dose: 1 appl Pantoprazole Sodium (Protonix Ec Tab) 40 mg PO 0600,1600 [facility] Last Admin: 04/20/18 05:43 Dose: 40 mg Sevelamer HCl (Renagel) 800 mg PO TID [facility] Last Admin: 04/20/18 13:10 Dose: 800 mg Spironolactone (Aldactone) 50 mg PO DAILY [facility] Last Admin: 04/20/18 13:09 Dose: 50 mg Trazodone HCl (Desyrel) 100 mg PO HS [facility] Last Admin: 04/19/18 21:46 Dose: 100 mg Vitamin B Complex/Vit C/Folic Acid (Nephro-Bhupinder) 1 tab PO 0800 [facility] Last Admin: 04/20/18 13:10 Dose: 1 tab - Labs Labs: 04/20/18 06:20 04/20/18 06:20 PT 13.2 SECONDS (9.4-12.5) H 04/03/18 15:44 INR 1.15 04/03/18 15:44 APTT 30.7 Seconds (25.1-36.5) 04/03/18 15:44
[2018-04-20 19:02] LABS: URINE CREATININE 136.3 mg/dL
[2018-04-21] MEDS: Albuterol-Ipratrop 3 mg / 0.5 (3 ml) UD IH PRN (00:50)
[2018-04-21] MEDS: Pantoprazole 40 mg EC Tab PO SCH ×2 (06:25→16:44)
[2018-04-21 07:09] LABS: ALB/GLOB RATIO 0.6 (1.1-1.8); CALCIUM 7.7 mg/dL (8.4-10.5)
[2018-04-21 07:14] LABS: BASO # 0.01 K/mm3 (0.0-2.0); BASO % 0.1 % (0.0-3.0); EOS # 0.3 (0.0-0.7); EOS % 4.8 % (1.5-5.0); GRAN # 4.53 (1.4-6.5); GRAN % 67.7 % (50.0-68.0); HEMOGLOBIN 8.7 g/dL (12.0-16.0); LYMPH # 0.9 (1.2-3.4); LYMPH % 13.3 % (22.0-35.0); MEAN CELL VOLUME 88.3 fl (80.0-105.0); MEAN CORPUSCULAR HEMOGLOBIN 26.9 pg (25.0-35.0); MEAN CORPUSCULAR HGB CONC 30.4 g/dl (31.0-37.0); MEAN PLATELET VOLUME 8.7 fl (7.0-11.0); MONO # 0.9 (0.1-0.6); MONO % 14.1 % (1.0-6.0); RBC 3.24 10^6/uL (3.5-6.1); RED CELL DISTRIBUTION WIDTH 21.1 % (11.5-14.5); WHITE BLOOD COUNT 6.7 10^3/uL (4.5-11.0)
[2018-04-21] MEDS: Petrolatum-Mineral Oil Oint (100gm) TOP SCH ×2 (09:11→23:36)
[2018-04-21] MEDS: Nystatin 100,000 Units/gm Topical Pow(15 gm) TOP SCH ×2 (09:12→17:31)
[2018-04-21] MEDS: Multivitamin Vitamin B Complex (Nephro-Vite) Tab PO SCH (09:13)
[2018-04-21] MEDS: Albuterol-Ipratrop 3 mg / 0.5 (3 ml) UD IH SCH ×4 (09:24→20:41)
--- NOTE | 2018-04-21 13:31 | CP.PCM.PN ---
<Misha Alfaro - Last Filed: 04/21/18 13:25> Subjective - Date & Time of Evaluation Date of Evaluation: 04/21/18 Time of Evaluation: 06:00 - Subjective Subjective: Patient seen and examined at bedside this morning. No acute events overnight. Patient does not have any complaints today. Objective - Vital Signs/Intake and Output Vital Signs (last 24 hours): Temp Pulse Resp BP Pulse Ox 99 F 90 20 108/52 L 99 04/21/18 06:00 04/21/18 06:00 04/21/18 06:00 04/21/18 09:13 04/21/18 06:00 Intake and Output: 04/21/18 04/21/18 06:59 18:59 Intake Total 240 Balance 240 - Medications Medications: Current Medications Acetaminophen (Tylenol 325mg Tab) 650 mg PO Q6 PRN PRN Reason: Fever >100.4 F Last Admin: 04/13/18 05:56 Dose: 650 mg Albuterol/Ipratropium (Duoneb 3 Mg/0.5 Mg (3 Ml) Ud) 3 ml IH [id number] [facility] Last Admin: 04/21/18 09:24 Dose: 3 ml Albuterol/Ipratropium (Duoneb 3 Mg/0.5 Mg (3 Ml) Ud) 3 ml IH Q2H PRN PRN Reason: Shortness of Breath Last Admin: 04/21/18 00:50 Dose: 3 ml Alprazolam (Xanax) 0.25 mg PO TID PRN; Protocol PRN Reason: Anxiety Last Admin: 04/21/18 06:25 Dose: 0.25 mg Darbepoetin Fletcher (Aranesp) 200 mcg IVP QWK [facility] Ergocalciferol (Drisdol 50,000 Intl Units Cap) 1 cap PO Q7D [facility] Last Admin: 04/15/18 14:05 Dose: 1 cap Furosemide (Lasix) 40 mg IVP DAILY [facility] Last Admin: 04/21/18 09:13 Dose: 40 mg Heparin Sodium (Porcine) (Heparin) 5,000 units SC Q8 [facility]; Protocol Last Admin: 04/21/18 06:24 Dose: 5,000 units Iron Sucrose 100 mg/ Sodium (Chloride) 105 mls @ 210 mls/hr IVPB QWK [facility] Stop: 05/18/18 10:29 Last Admin: 04/20/18 13:06 Dose: 210 mls/hr Midodrine (Proamatine) 10 mg PO MWF [facility] Last Admin: 04/20/18 09:24 Dose: 10 mg Multi-Ingredient Ointment (Hydrophor Oint) 0 gm TOP Q12 [facility] Last Admin: 04/21/18 09:11 Dose: 1 units Nystatin (Nystop Topical Powder) 0 gm TOP BID [facility] Last Admin: 04/21/18 09:12 Dose: 1 appl Pantoprazole Sodium (Protonix Ec Tab) 40 mg PO 0600,1600 [facility] Last Admin: 04/21/18 06:25 Dose: 40 mg Sevelamer HCl (Renagel) 800 mg PO TID [facility] Last Admin: 04/21/18 09:13 Dose: 800 mg Spironolactone (Aldactone) 50 mg PO DAILY [facility] Last Admin: 04/21/18 09:13 Dose: 50 mg Trazodone HCl (Desyrel) 100 mg PO HS [facility] Last Admin: 04/20/18 21:50 Dose: 100 mg Vitamin B Complex/Vit C/Folic Acid (Nephro-Bhupinder) 1 tab PO 0800 [facility] Last Admin: 04/21/18 09:13 Dose: 1 tab - Labs Labs: 04/21/18 06:00 04/21/18 06:00 PT 13.2 SECONDS (9.4-12.5) H 04/03/18 15:44 INR 1.15 04/03/18 15:44 APTT 30.7 Seconds (25.1-36.5) 04/03/18 15:44 - Constitutional Appears: No Acute Distress - Head Exam Head Exam: ATRAUMATIC, NORMAL INSPECTION, NORMOCEPHALIC - Eye Exam Eye Exam: EOMI, Normal appearance - ENT Exam ENT Exam: Mucous Membranes Moist - Respiratory Exam Respiratory Exam: Clear to Ausculation Bilateral, NORMAL BREATHING PATTERN - Cardiovascular Exam Cardiovascular Exam: +S1, +S2 - Extremities Exam Extremities Exam: Joint Swelling Additional comments: 2+ edema noted on both legs -no draining/weeping/pus noted on lower extremities - Neurological Exam Neurological Exam: Alert, Awake, Oriented x3 Assessment and Plan - Assessment and Plan (Free Text) Assessment: Patient is a 52 yo F with past medical history liver failure, morbid obesity, and EtOH abuse presents to [facility] for worsening weakness and admitted for management of anemia and FELIPE with metabolic acidosis. Focusing on outpatient HD and PT at this time. Plan: Acute renal failure - improved -on HD MWF -continuing to work with social work case manager for outpatient HD setup, working on placement -started on lasix 40mg IV daily -Renal US is unremarkable -Renagel 800 mg PO TID -Strict I's and O's -Nephrology on consult, Dr. Salmeron Fever - resolved -afebrile > 48hours -positive flu type A, completed course of tamiflu -urine culture showed growing klebsiella and yeast -DC Merrem -CXR showed moderate cardiomegaly, vascular congestion -blood culture shows no growth after 5 days -procalcitonin mildly elevated Chronic lymphedema of B/L legs -podiatry on consult, no further recommendations, local wound care for now - not currently draining/weeping -repeat ext US shows possible right SFA occlusive disease, limited study due to artifact -wound culture grew Enterobacter Cloacae, E. faecalis - superficial bacteria colonizers, repeat wound culture -PT recommends [facility]ENNA -daily PT rehab Microcytic anemia -s/p total 11 units pRBCs, 2 FFPs -oral iron started -endoscopy showed 3 non bleeding gastric ulcers, largest one 8mm -iron studies shows likely iron deficiency -Head CT unremarkable -CTAP shows adenopathy of the hepatic gastric ligament -GI on consult, Dr. Melo Elevated BNP -BNP [id number] on admission -Echo showed EF of 68%, mild TR/MR, mild pulm HTN, borderline LVH Depression -Psych on consult, Dr. Ramos -continue trazodone PPX/Diet -protonix, heparin -renal diet <Adrian Heredia - Last Filed: 04/21/18 17:40> Objective - Vital Signs/Intake and Output Vital Signs (last 24 hours): Temp Pulse Resp BP Pulse Ox 99.4 F 91 H 18 106/57 L 98 04/21/18 09:15 04/21/18 14:00 04/21/18 14:00 04/21/18 14:00 04/21/18 14:00 Intake and Output: 04/21/18 04/21/18 06:59 18:59 Intake Total 240 Balance 240 - Medications Medications: Current Medications Acetaminophen (Tylenol 325mg Tab) 650 mg PO Q6 PRN PRN Reason: Fever >100.4 F Last Admin: 04/13/18 05:56 Dose: 650 mg Albuterol/Ipratropium (Duoneb 3 Mg/0.5 Mg (3 Ml) Ud) 3 ml IH [id number] [facility] Last Admin: 04/21/18 14:22 Dose: 3 ml Albuterol/Ipratropium (Duoneb 3 Mg/0.5 Mg (3 Ml) Ud) 3 ml IH Q2H PRN PRN Reason: Shortness of Breath Last Admin: 04/21/18 00:50 Dose: 3 ml Alprazolam (Xanax) 0.25 mg PO TID PRN; Protocol PRN Reason: Anxiety Last Admin: 04/21/18 06:25 Dose: 0.25 mg Darbepoetin Fletcher (Aranesp) 200 mcg IVP QWK [facility] Ergocalciferol (Drisdol 50,000 Intl Units Cap) 1 cap PO Q7D [facility] Last Admin: 04/15/18 14:05 Dose: 1 cap Furosemide (Lasix) 40 mg IVP DAILY [facility] Last Admin: 04/21/18 09:13 Dose: 40 mg Heparin Sodium (Porcine) (Heparin) 5,000 units SC Q8 [facility]; Protocol Last Admin: 04/21/18 14:04 Dose: 5,000 units Iron Sucrose 100 mg/ Sodium (Chloride) 105 mls @ 210 mls/hr IVPB QWK [facility] Stop: 05/18/18 10:29 Last Admin: 04/20/18 13:06 Dose: 210 mls/hr Midodrine (Proamatine) 10 mg PO MWF [facility] Last Admin: 04/20/18 09:24 Dose: 10 mg Multi-Ingredient Ointment (Hydrophor Oint) 0 gm TOP Q12 [facility] Last Admin: 04/21/18 09:11 Dose: 1 units Nystatin (Nystop Topical Powder) 0 gm TOP BID [facility] Last Admin: 04/21/18 17:31 Dose: 1 appl Pantoprazole Sodium (Protonix Ec Tab) 40 mg PO 0600,1600 [facility] Last Admin: 04/21/18 16:44 Dose: 40 mg Sevelamer HCl (Renagel) 800 mg PO TID [facility] Last Admin: 04/21/18 17:31 Dose: 800 mg Spironolactone (Aldactone) 50 mg PO DAILY [facility] Last Admin: 04/21/18 09:13 Dose: 50 mg Trazodone HCl (Desyrel) 100 mg PO HS [facility] Last Admin: 04/20/18 21:50 Dose: 100 mg Vitamin B Complex/Vit C/Folic Acid (Nephro-Bhupinder) 1 tab PO 0800 [facility] Last Admin: 04/21/18 09:13 Dose: 1 tab - Labs Labs: 04/21/18 06:00 04/21/18 06:00 PT 13.2 SECONDS (9.4-12.5) H 04/03/18 15:44 INR 1.15 04/03/18 15:44 APTT 30.7 Seconds (25.1-36.5) 04/03/18 15:44 Attending/Attestation - Attestation I have personally seen and examined this patient.: Yes I have fully participated in the care of the patient.: Yes I have reviewed all pertinent clinical information, including history, physical exam and plan: Yes Notes (Text): Patient seen and examined with the residents, agree with above no acute events overnight, no complaints offered continue with HD schedule with [facility] for outpt HD placement which has been difficult Nephrology following
--- NOTE | 2018-04-21 14:01 | CP.PCM.PN ---
Subjective - Date & Time of Evaluation Date of Evaluation: 04/21/18 Time of Evaluation: 13:58 - Subjective Subjective: Nephrology Consultation Note: Assessment: stable Acute Kidney Injury (N17.9) likely due to ATN, pre-renal state, intrasvasc hypovolemia, impaired renal perfusion, HD 04/05/18: first session anasarca severe symptomatic anemia due to GI bleed with gastric ulcers mild hyperkalemia and HAGMA, hyperphos hx of cirrhosis and etoh intra-ab lymphadenopathy morbid obesity influenza Plan HD MWF schedule.monitor uop, she is reporting urinary incontinence and abdominal discomfort, i have ordered bladder usg to rule out retention Maintain hemodynamics stable. midodrine pre hd Monitor Input/Output continue phos binders PRBC as needed. s/p 1 gram IV iron, now on weekly aranesp/IV iron work up for FELIPE and anemia as ordered. GN work up neg hence will defer kidney biopsy. also pt with liver disease and morbidly obese. started weekly vit d consider further work up for ascites. started on aldactone 50 mg/d to reduce portal HTN Dose meds/antibiotics for reduced GFR. SW for outpt hd placement. can f/up as outpt for renal recovery. stable for d/c from renal perspective once arranged for outpt HD. Av access will be planned later as outpt if no renal recovery in 3 months ROS: All other negative except as mentioned in HPI Physical Examination: General Appearance: Comfortable, in no acute respiratory distress, co-operative . morbid obese Vitals reviewed and noted as below Head; Atraumatic, normocephalic ENT: no ulcers no thrush. Tongue is midline. Oropharynx: no rash or ulcers. EYES: Pupils are equal, round and reactive to light accommodation. Eye muscles and extraocular movement intact. Sclera is anicteric. Neck; supple no lymphadenopathy, no thyromegaly or bruit Lungs: Normal respiratory rate/effort. Breath sounds bilateral with wheeze Heart: Normal rate. s1s2 normal. No rub or gallop. Extremities: 2+ edema. Neurological: Patient is alert, awake and oriented to person, place and time. No focal deficit. Strength bilateral appropriate and equal Skin: Warm and dry. Normal turgor. spider angioma rash upper chest. Palpitation: Normal elasticity for age Abdomen: Abdomen is soft. Bowel sounds +. There is no abdominal tenderness, no guarding/rigidity no organomegaly. limited due to obesity and abd wall edema Psych: normal insight and normal affect/mood MSK: no joint tenderness or swelling Objective - Vital Signs/Intake and Output Vital Signs (last 24 hours): Temp Pulse Resp BP Pulse Ox 99 F 90 20 108/52 L 99 04/21/18 06:00 04/21/18 06:00 04/21/18 06:00 04/21/18 09:13 04/21/18 06:00 Intake and Output: 04/21/18 04/21/18 06:59 18:59 Intake Total 240 Balance 240 - Medications Medications: Current Medications Acetaminophen (Tylenol 325mg Tab) 650 mg PO Q6 PRN PRN Reason: Fever >100.4 F Last Admin: 04/13/18 05:56 Dose: 650 mg Albuterol/Ipratropium (Duoneb 3 Mg/0.5 Mg (3 Ml) Ud) 3 ml IH [id number] [facility] Last Admin: 04/21/18 09:24 Dose: 3 ml Albuterol/Ipratropium (Duoneb 3 Mg/0.5 Mg (3 Ml) Ud) 3 ml IH Q2H PRN PRN Reason: Shortness of Breath Last Admin: 04/21/18 00:50 Dose: 3 ml Alprazolam (Xanax) 0.25 mg PO TID PRN; Protocol PRN Reason: Anxiety Last Admin: 04/21/18 06:25 Dose: 0.25 mg Darbepoetin Fletcher (Aranesp) 200 mcg IVP QWK [facility] Ergocalciferol (Drisdol 50,000 Intl Units Cap) 1 cap PO Q7D [facility] Last Admin: 04/15/18 14:05 Dose: 1 cap Furosemide (Lasix) 40 mg IVP DAILY [facility] Last Admin: 04/21/18 09:13 Dose: 40 mg Heparin Sodium (Porcine) (Heparin) 5,000 units SC Q8 [facility]; Protocol Last Admin: 04/21/18 06:24 Dose: 5,000 units Iron Sucrose 100 mg/ Sodium (Chloride) 105 mls @ 210 mls/hr IVPB QWK [facility] Stop: 05/18/18 10:29 Last Admin: 04/20/18 13:06 Dose: 210 mls/hr Midodrine (Proamatine) 10 mg PO MWF [facility] Last Admin: 04/20/18 09:24 Dose: 10 mg Multi-Ingredient Ointment (Hydrophor Oint) 0 gm TOP Q12 [facility] Last Admin: 04/21/18 09:11 Dose: 1 units Nystatin (Nystop Topical Powder) 0 gm TOP BID [facility] Last Admin: 04/21/18 09:12 Dose: 1 appl Pantoprazole Sodium (Protonix Ec Tab) 40 mg PO 0600,1600 [facility] Last Admin: 04/21/18 06:25 Dose: 40 mg Sevelamer HCl (Renagel) 800 mg PO TID [facility] Last Admin: 04/21/18 09:13 Dose: 800 mg Spironolactone (Aldactone) 50 mg PO DAILY [facility] Last Admin: 04/21/18 09:13 Dose: 50 mg Trazodone HCl (Desyrel) 100 mg PO HS [facility] Last Admin: 04/20/18 21:50 Dose: 100 mg Vitamin B Complex/Vit C/Folic Acid (Nephro-Bhupinder) 1 tab PO 0800 [facility] Last Admin: 04/21/18 09:13 Dose: 1 tab - Labs Labs: 04/21/18 06:00 04/21/18 06:00 PT 13.2 SECONDS (9.4-12.5) H 04/03/18 15:44 INR 1.15 04/03/18 15:44 APTT 30.7 Seconds (25.1-36.5) 04/03/18 15:44
--- NOTE | 2018-04-21 22:30 | PN ---
DATE: 04/21/2018 SUBJECTIVE: The patient is seen in bed, in no acute distress, and nontoxic. OBJECTIVE: VITAL SIGNS: Temperature is 98, blood pressure is 106/50, and respiratory rate of 18. HEENT: Unremarkable. NECK: Supple. LUNGS: Have decreased breath sounds. HEART: Normal S1 and S2. ABDOMEN: Soft. LABORATORY DATA: Reveals the patient's white count is 6.7 and hemoglobin of 8. BUN of 21 and creatinine of 2.5. The urinalysis is noted. REVIEW OF ORDERS: Reveals the patient to be on no antibiotics. ASSESSMENT AND PLAN: A 52-year-old female with status post treatment influenza A, Klebsiella urinary tract infection, chronic lower extremity edema and chronic renal failure, on dialysis and currently has completed antibiotic therapy. We will monitor off of antibiotic therapy. The patient is at risk for developing nosocomial infections. Orion Thompson MD
[2018-04-22] MEDS: Albuterol-Ipratrop 3 mg / 0.5 (3 ml) UD IH SCH ×4 (02:55→19:46)
[2018-04-22] MEDS: Pantoprazole 40 mg EC Tab PO SCH ×2 (06:56→17:02)
[2018-04-22 07:59] LABS: BASO # 0.04 K/mm3 (0.0-2.0); BASO % 0.6 % (0.0-3.0); EOS # 0.4 (0.0-0.7); GRAN # 4.53 (1.4-6.5); GRAN % 64.8 % (50.0-68.0); HEMOGLOBIN 9.3 g/dL (12.0-16.0); LYMPH % 14.3 % (22.0-35.0); MEAN CELL VOLUME 89.2 fl (80.0-105.0); MEAN CORPUSCULAR HEMOGLOBIN 27.2 pg (25.0-35.0); MEAN CORPUSCULAR HGB CONC 30.5 g/dl (31.0-37.0); MEAN PLATELET VOLUME 8.9 fl (7.0-11.0); MONO # 1.1 (0.1-0.6); MONO % 15.3 % (1.0-6.0); RBC 3.42 10^6/uL (3.5-6.1); RED CELL DISTRIBUTION WIDTH 20.9 % (11.5-14.5)
--- NOTE | 2018-04-22 08:00 | CP.PCM.PN ---
<Misha Alfaro - Last Filed: 04/22/18 12:55> Subjective - Date & Time of Evaluation Date of Evaluation: 04/22/18 Time of Evaluation: 06:00 - Subjective Subjective: Patient seen and examined bedside. No acute issues overnight. Patient denies any complaints. Objective - Vital Signs/Intake and Output Vital Signs (last 24 hours): Temp Pulse Resp BP Pulse Ox 100.0 F H 99 H 20 123/52 L 94 L 04/21/18 22:00 04/21/18 22:00 04/21/18 22:00 04/21/18 22:00 04/21/18 22:00 Intake and Output: 04/22/18 04/22/18 06:59 18:59 Intake Total 420 Balance 420 - Medications Medications: Current Medications Acetaminophen (Tylenol 325mg Tab) 650 mg PO Q6 PRN PRN Reason: Fever >100.4 F Last Admin: 04/13/18 05:56 Dose: 650 mg Albuterol/Ipratropium (Duoneb 3 Mg/0.5 Mg (3 Ml) Ud) 3 ml IH [id number] [facility] Last Admin: 04/22/18 07:50 Dose: 3 ml Albuterol/Ipratropium (Duoneb 3 Mg/0.5 Mg (3 Ml) Ud) 3 ml IH Q2H PRN PRN Reason: Shortness of Breath Last Admin: 04/21/18 00:50 Dose: 3 ml Alprazolam (Xanax) 0.25 mg PO TID PRN; Protocol PRN Reason: Anxiety Last Admin: 04/21/18 06:25 Dose: 0.25 mg Darbepoetin Fletcher (Aranesp) 200 mcg IVP QWK [facility] Ergocalciferol (Drisdol 50,000 Intl Units Cap) 1 cap PO Q7D [facility] Last Admin: 04/15/18 14:05 Dose: 1 cap Furosemide (Lasix) 40 mg IVP DAILY [facility] Last Admin: 04/21/18 09:13 Dose: 40 mg Heparin Sodium (Porcine) (Heparin) 5,000 units SC Q8 [facility]; Protocol Last Admin: 04/22/18 06:56 Dose: 5,000 units Iron Sucrose 100 mg/ Sodium (Chloride) 105 mls @ 210 mls/hr IVPB QWK [facility] Stop: 05/18/18 10:29 Last Admin: 04/20/18 13:06 Dose: 210 mls/hr Midodrine (Proamatine) 10 mg PO MWF [facility] Last Admin: 04/20/18 09:24 Dose: 10 mg Multi-Ingredient Ointment (Hydrophor Oint) 0 gm TOP Q12 [facility] Last Admin: 04/21/18 23:36 Dose: 1 units Nystatin (Nystop Topical Powder) 0 gm TOP BID [facility] Last Admin: 04/21/18 17:31 Dose: 1 appl Pantoprazole Sodium (Protonix Ec Tab) 40 mg PO 0600,1600 [facility] Last Admin: 04/22/18 06:56 Dose: 40 mg Sevelamer HCl (Renagel) 800 mg PO TID [facility] Last Admin: 04/21/18 17:31 Dose: 800 mg Spironolactone (Aldactone) 50 mg PO DAILY [facility] Last Admin: 04/21/18 09:13 Dose: 50 mg Trazodone HCl (Desyrel) 100 mg PO HS [facility] Last Admin: 04/21/18 23:35 Dose: 100 mg Vitamin B Complex/Vit C/Folic Acid (Nephro-Bhupinder) 1 tab PO 0800 [facility] Last Admin: 04/21/18 09:13 Dose: 1 tab - Labs Labs: 04/21/18 06:00 04/21/18 06:00 PT 13.2 SECONDS (9.4-12.5) H 04/03/18 15:44 INR 1.15 04/03/18 15:44 APTT 30.7 Seconds (25.1-36.5) 04/03/18 15:44 - Constitutional Appears: No Acute Distress - Eye Exam Eye Exam: EOMI, Normal appearance - ENT Exam ENT Exam: Mucous Membranes Moist - Respiratory Exam Respiratory Exam: Clear to Ausculation Bilateral, NORMAL BREATHING PATTERN - Cardiovascular Exam Cardiovascular Exam: REGULAR RHYTHM - GI/Abdominal Exam GI & Abdominal Exam: Soft - Extremities Exam Extremities Exam: Pedal Edema Additional comments: 2+ edema noted on both legs -no draining/weeping/pus noted on lower extremities - Neurological Exam Neurological Exam: Alert, Awake, Oriented x3 Assessment and Plan - Assessment and Plan (Free Text) Assessment: Patient is a 52 yo F with past medical history liver failure, morbid obesity, and EtOH abuse presents to [facility] for worsening weakness and admitted for management of anemia and FELIPE with metabolic acidosis. Focusing on outpatient HD and PT at this time. Plan: Acute renal failure - improved -on HD MWF -continuing to work with piano case maker for outpatient HD setup, working on placement -started on lasix 40mg IV daily -Renal US is unremarkable -Renagel 800 mg PO TID -Strict I's and O's -Nephrology on consult, Dr. Salmeron Fever - resolved -afebrile > 48hours -positive flu type A, completed course of tamiflu -urine culture showed growing klebsiella and yeast -DC Merrem -CXR showed moderate cardiomegaly, vascular congestion -blood culture shows no growth after 5 days -procalcitonin mildly elevated Chronic lymphedema of B/L legs -podiatry on consult, no further recommendations, local wound care for now - not currently draining/weeping -repeat ext US shows possible right SFA occlusive disease, limited study due to artifact -wound culture grew Enterobacter Cloacae, E. faecalis - superficial bacteria colonizers, repeat wound culture -PT recommends [facility]NA -daily PT rehab Microcytic anemia -s/p total 11 units pRBCs, 2 FFPs -oral iron started -endoscopy showed 3 non bleeding gastric ulcers, largest one 8mm -iron studies shows likely iron deficiency -Head CT unremarkable -CTAP shows adenopathy of the hepatic gastric ligament -GI on consult, Dr. Melo Elevated BNP -BNP [id number] on admission -Echo showed EF of 68%, mild TR/MR, mild pulm HTN, borderline LVH Depression -Psych on consult, Dr. Ramos -continue trazodone PPX/Diet -protonix, heparin -renal diet Pending placement for dialysis <Sagrario Ojeda - Last Filed: 04/22/18 13:17> Objective - Vital Signs/Intake and Output Vital Signs (last 24 hours): Temp Pulse Resp BP Pulse Ox 99.4 F 95 H 20 109/58 L 94 L 04/22/18 06:00 04/22/18 06:00 04/22/18 06:00 04/22/18 11:42 04/22/18 06:00 Intake and Output: 04/22/18 04/22/18 06:59 18:59 Intake Total 420 Balance 420 - Medications Medications: Current Medications Acetaminophen (Tylenol 325mg Tab) 650 mg PO Q6 PRN PRN Reason: Fever >100.4 F Last Admin: 04/13/18 05:56 Dose: 650 mg Albuterol/Ipratropium (Duoneb 3 Mg/0.5 Mg (3 Ml) Ud) 3 ml IH [id number] [facility] Last Admin: 04/22/18 07:50 Dose: 3 ml Albuterol/Ipratropium (Duoneb 3 Mg/0.5 Mg (3 Ml) Ud) 3 ml IH Q2H PRN PRN Reason: Shortness of Breath Last Admin: 04/21/18 00:50 Dose: 3 ml Alprazolam (Xanax) 0.25 mg PO TID PRN; Protocol PRN Reason: Anxiety Last Admin: 04/22/18 11:42 Dose: 0.25 mg Darbepoetin Fletcher (Aranesp) 200 mcg IVP QWK [facility] Ergocalciferol (Drisdol 50,000 Intl Units Cap) 1 cap PO Q7D [facility] Last Admin: 04/15/18 14:05 Dose: 1 cap Furosemide (Lasix) 40 mg IVP DAILY [facility] Last Admin: 04/22/18 11:42 Dose: 40 mg Heparin Sodium (Porcine) (Heparin) 5,000 units SC Q8 [facility]; Protocol Last Admin: 04/22/18 06:56 Dose: 5,000 units Iron Sucrose 100 mg/ Sodium (Chloride) 105 mls @ 210 mls/hr IVPB QWK [facility] Stop: 05/18/18 10:29 Last Admin: 04/20/18 13:06 Dose: 210 mls/hr Midodrine (Proamatine) 10 mg PO MWF [facility] Last Admin: 04/20/18 09:24 Dose: 10 mg Multi-Ingredient Ointment (Hydrophor Oint) 0 gm TOP Q12 [facility] Last Admin: 04/21/18 23:36 Dose: 1 units Nystatin (Nystop Topical Powder) 0 gm TOP BID [facility] Last Admin: 04/21/18 17:31 Dose: 1 appl Pantoprazole Sodium (Protonix Ec Tab) 40 mg PO 0600,1600 [facility] Last Admin: 04/22/18 06:56 Dose: 40 mg Sevelamer HCl (Renagel) 800 mg PO TID [facility] Last Admin: 04/22/18 11:41 Dose: 800 mg Spironolactone (Aldactone) 50 mg PO DAILY [facility] Last Admin: 04/22/18 11:41 Dose: 50 mg Trazodone HCl (Desyrel) 100 mg PO HS [facility] Last Admin: 04/21/18 23:35 Dose: 100 mg Vitamin B Complex/Vit C/Folic Acid (Nephro-Bhupinder) 1 tab PO 0800 [facility] Last Admin: 04/22/18 11:41 Dose: 1 tab - Labs Labs: 04/22/18 07:00 04/22/18 07:00 PT 13.2 SECONDS (9.4-12.5) H 04/03/18 15:44 INR 1.15 04/03/18 15:44 APTT 30.7 Seconds (25.1-36.5) 04/03/18 15:44 Attending/Attestation - Attestation I have personally seen and examined this patient.: Yes I have fully participated in the care of the patient.: Yes I have reviewed all pertinent clinical information, including history, physical exam and plan: Yes Notes (Text): 04/22/18 13:16 Medical record note made by the resident after discussion with my direction and input after the patient was personally seen and examined by me. I have reviewed the chart and agree that the record accurately reflects by personal performance of the history, physical exam, data review, and medical decision-making, in the course for the patient. I have also personally directed the plan of care.
[2018-04-22 08:25] LABS: ALB/GLOB RATIO 0.6 (1.1-1.8); ALBUMIN 2.2 g/dL (3.0-4.8); CALCIUM 7.6 mg/dL (8.4-10.5)
[2018-04-22] MEDS: Nystatin 100,000 Units/gm Topical Pow(15 gm) TOP SCH ×2 (10:01→17:01)
[2018-04-22] MEDS: Multivitamin Vitamin B Complex (Nephro-Vite) Tab PO SCH (11:41)
--- NOTE | 2018-04-22 13:56 | CON ---
DATE: 04/22/2018 HISTORY OF PRESENT ILLNESS: The patient is a 52-year-old female who has been followed by Psychiatry with symptoms of depression and anxiety. I reviewed Dr. Maradiaga's notes from 04/20/2018, and met with the patient again today, on 04/22/2018 to follow up on the patient's symptoms and it seems to be consistently improved. I met with the patient at bedside, and she is calm, cooperative, alert, and oriented to month, year, location and circumstances. thought process is coherent, responses are relevant and consistent. The patient continues to report that she is feeling better, and depression and anxiety are improving. She is tolerating medications well and she feels that the current dose is beneficial. She denies any new concern. She defers on any changes to her medication regimen. In general, she indicates that she has good days and bad days, but generally feels like she has more good days, though she is feeling on being hospitalized for so long. Her insight and judgment are fair. Labs and vital signs are reviewed. PSYCHIATRIC MEDICATIONS: Include Xanax 0.25 mg 3 times daily p.r.n., trazodone 100 mg at bedtime. IMPRESSION: Rule out mood disorder due to general medical condition, rule out anxiety disorder due to general medical condition. Improving symptoms. PLAN: Continue Xanax and trazodone. The patient appears to be psychiatrically stable at this time without any new acute psychiatric issues. Psychiatrist , please reconsult p.r.n. Kaya Saxena MD
--- NOTE | 2018-04-22 16:42 | US ---
Indication: c/o incontinence with lower abd pain r/o retention Technique: Bladder only/residual urine ultrasound Comparison: None Findings: Prevoid urinary bladder: 284.1 cc Postvoid urinary bladder: Could not be assessed as the patient unable to void Bilateral ureteral jets are not identified. Impression: Prevoid urinary bladder: 284.1 cc Postvoid urinary bladder: Could not be assessed as the patient unable to void Bilateral ureteral jets are not identified.
[2018-04-22] MEDS: Petrolatum-Mineral Oil Oint (100gm) TOP SCH ×2 (17:00→21:41)
[2018-04-22] MEDS: Ergocalciferol 50,000 Intl Units Cap PO SCH (17:07)
--- NOTE | 2018-04-23 03:24 | PN ---
DATE: 04/22/2018 SUBJECTIVE: The patient was seen earlier today in 565, bed 1. No fevers, no chills. No nausea or vomiting. PHYSICAL EXAMINATION: VITAL SIGNS: Temperature is 99, blood pressure is 111/60, respiratory rate of 18. HEENT: Unremarkable. NECK: Supple. LUNGS: Have decreased breath sounds. HEART: Normal, S1, S2. ABDOMEN: Soft. LABORATORY DATA: Examination is reviewed. ASSESSMENT AND PLAN: A 52-year-old female status post treatment of influenza and Klebsiella urinary tract infection, has completed antibiotic therapy, currently off antibiotics, did have low-grade fevers. We will continue to monitor and check her complete blood count in the morning. Currently off antibiotics. We will follow with you. Orion Thompson MD
[2018-04-23] MEDS: Albuterol-Ipratrop 3 mg / 0.5 (3 ml) UD IH SCH ×4 (04:55→19:52)
[2018-04-23] MEDS: Pantoprazole 40 mg EC Tab PO SCH ×2 (06:25→15:04)
[2018-04-23] MEDS: Multivitamin Vitamin B Complex (Nephro-Vite) Tab PO SCH (08:48)
--- NOTE | 2018-04-23 09:08 | CP.PCM.PCO ---
Physician Communication Note - Physician Communication Note Physician Communication Note: psychiatric team signed off
[2018-04-23] MEDS: Petrolatum-Mineral Oil Oint (100gm) TOP SCH ×2 (10:41→21:46)
[2018-04-23] MEDS: Nystatin 100,000 Units/gm Topical Pow(15 gm) TOP SCH ×2 (10:41→17:31)
[2018-04-23] MEDS ORDERED: Darbepoetin Alfa 100 mcg/ml Inj IVP SCH ×2 (11:50)
--- NOTE | 2018-04-23 13:25 | CP.PCM.PN ---
<Nhung Anne - Last Filed: 04/23/18 13:22> Subjective - Date & Time of Evaluation Date of Evaluation: 04/23/18 Time of Evaluation: 10:45 - Subjective Subjective: Nhung Anne PGY1 Hospital Progress Note Patient seen and examined bedside. No acute issues overnight. Patient denies any complaints at this time. HD today. Objective - Vital Signs/Intake and Output Vital Signs (last 24 hours): Temp Pulse Resp BP Pulse Ox 98.7 F 92 H 18 108/55 L 95 04/23/18 06:00 04/23/18 06:00 04/23/18 06:00 04/23/18 06:00 04/23/18 06:00 - Medications Medications: Current Medications Acetaminophen (Tylenol 325mg Tab) 650 mg PO Q6 PRN PRN Reason: Fever >100.4 F Last Admin: 04/13/18 05:56 Dose: 650 mg Albuterol/Ipratropium (Duoneb 3 Mg/0.5 Mg (3 Ml) Ud) 3 ml IH [id number] [facility] Last Admin: 04/23/18 07:57 Dose: Not Given Albuterol/Ipratropium (Duoneb 3 Mg/0.5 Mg (3 Ml) Ud) 3 ml IH Q2H PRN PRN Reason: Shortness of Breath Last Admin: 04/21/18 00:50 Dose: 3 ml Alprazolam (Xanax) 0.25 mg PO TID PRN; Protocol PRN Reason: Anxiety Last Admin: 04/23/18 03:16 Dose: 0.25 mg Darbepoetin Fletcher (Aranesp) 200 mcg IVP [facility] Ergocalciferol (Drisdol 50,000 Intl Units Cap) 1 cap PO Q7D [facility] Last Admin: 04/22/18 17:07 Dose: 1 cap Heparin Sodium (Porcine) (Heparin) 5,000 units SC Q8 [facility]; Protocol Last Admin: 04/23/18 06:24 Dose: 5,000 units Iron Sucrose 100 mg/ Sodium (Chloride) 105 mls @ 210 mls/hr IVPB [facility] Stop: 05/18/18 10:29 Last Admin: 04/20/18 13:06 Dose: 210 mls/hr Midodrine (Proamatine) 10 mg PO MWF [facility] Last Admin: 04/23/18 10:41 Dose: Not Given Multi-Ingredient Ointment (Hydrophor Oint) 0 gm TOP Q12 [facility] Last Admin: 04/23/18 10:41 Dose: Not Given Nystatin (Nystop Topical Powder) 0 gm TOP BID [facility] Last Admin: 04/23/18 10:41 Dose: Not Given Pantoprazole Sodium (Protonix Ec Tab) 40 mg PO 0600,1600 [facility] Last Admin: 04/23/18 06:25 Dose: 40 mg Sevelamer HCl (Renagel) 800 mg PO TID [facility] Last Admin: 04/23/18 10:42 Dose: Not Given Spironolactone (Aldactone) 50 mg PO DAILY [facility] Last Admin: 04/23/18 10:41 Dose: Not Given Trazodone HCl (Desyrel) 100 mg PO HS [facility] Last Admin: 04/22/18 21:32 Dose: 100 mg Vitamin B Complex/Vit C/Folic Acid (Nephro-Bhupinder) 1 tab PO 0800 [facility] Last Admin: 04/23/18 08:48 Dose: 1 tab - Labs Labs: 04/22/18 07:00 04/22/18 07:00 PT 13.2 SECONDS (9.4-12.5) H 04/03/18 15:44 INR 1.15 04/03/18 15:44 APTT 30.7 Seconds (25.1-36.5) 04/03/18 15:44 - Additional Findings Additional findings: - Constitutional Appears: No Acute Distress - Head Exam Head Exam: NORMAL INSPECTION, ATRAUMATIC - Eye Exam Eye Exam: EOMI, PERRL - ENT Exam ENT Exam: Mucous Membranes Moist, Normal Exam - Neck Exam Neck exam: Positive for: Normal Inspection - Respiratory Exam Respiratory Exam: Clear to Auscultation Bilateral. absent: Rales, Rhonchi, Wheezes, respiratory distress - Cardiovascular Exam Cardiovascular Exam: Regular rhythm, +S1, +S2. absent: Systolic Murmur - GI/Abdominal Exam GI & Abdominal Exam: Soft. Bowel sounds heard in all 4 quadrants absent: Distended, Guarding, Rebound, Tenderness - Extremities Exam Extremities exam: Positive for: pedal edema Additional comments: 2+ edema noted on both legs -no draining/weeping/pus noted on lower extremities - Neurological Exam Neurological exam: Alert, CN II-XII Intact, Oriented x3 - Skin Skin Exam: Dry, Intact and Pallor Assessment and Plan - Assessment and Plan (Free Text) Assessment: Patient is a 52 yo F with past medical history liver failure, morbid obesity, and EtOH abuse presents to [facility] [place] for worsening weakness and admitted for management of anemia and FELIPE with metabolic acidosis. Focusing on outpatient HD placement and PT at this time. Plan: Acute renal failure - improved -on HD MWF, currently receiving HD today -Working with disability case manager for outpatient HD setup, working on placement -lasix stopped -Renal US is unremarkable -Renagel 800 mg PO TID -Strict I's and O's -Nephrology on consult, Dr. Salmeron Chronic lymphedema of B/L legs -podiatry on consult, no further recommendations, local wound care for now - not currently draining/weeping -repeat ext US shows possible right SFA occlusive disease, limited study due to artifact -wound culture grew Enterobacter Cloacae, E. faecalis - superficial bacteria colonizers, repeat wound culture -PT recommends JENNA -daily PT rehab Microcytic anemia -s/p total 11 units pRBCs, 2 FFPs -oral iron started -endoscopy showed 3 non bleeding gastric ulcers, largest one 8mm -iron studies shows likely iron deficiency -Head CT unremarkable -CTAP shows adenopathy of the hepatic gastric ligament -GI on consult, Dr. Melo Fever - resolved -afebrile > 48hours -positive flu type A, completed course of tamiflu -urine culture growing klebsiella and yeast, on merrem day 4 -CXR showed moderate cardiomegaly, vascular congestion -blood culture shows no growth after 5 days -procalcitonin mildly elevated Elevated BNP -BNP 18652 on admission -Echo showed EF of 68%, mild TR/MR, mild pulm HTN, borderline LVH Depression -Psych on consult, Dr. Ramos -continue trazodone PPX/Diet -protonix, heparin -renal diet Patient seen and case discussed with attending, Dr. Ojeda <Sagrario Ojeda - Last Filed: 04/23/18 16:16> Objective - Vital Signs/Intake and Output Vital Signs (last 24 hours): Temp Pulse Resp BP Pulse Ox 98.4 F 91 H 18 113/49 L 96 04/23/18 13:40 04/23/18 15:34 04/23/18 13:40 04/23/18 15:34 04/23/18 13:40 - Medications Medications: Current Medications Acetaminophen (Tylenol 325mg Tab) 650 mg PO Q6 PRN PRN Reason: Fever >100.4 F Last Admin: 04/13/18 05:56 Dose: 650 mg Albuterol/Ipratropium (Duoneb 3 Mg/0.5 Mg (3 Ml) Ud) 3 ml IH [id number] Last Admin: 04/23/18 13:39 Dose: 3 ml Albuterol/Ipratropium (Duoneb 3 Mg/0.5 Mg (3 Ml) Ud) 3 ml IH Q2H PRN PRN Reason: Shortness of Breath Last Admin: 04/21/18 00:50 Dose: 3 ml Alprazolam (Xanax) 0.25 mg PO TID PRN; Protocol PRN Reason: Anxiety Last Admin: 04/23/18 13:45 Dose: 0.25 mg Benzonatate (Tessalon Perles) 100 mg PO TID PRN PRN Reason: Cough Last Admin: 04/23/18 16:12 Dose: 100 mg Darbepoetin Feltcher (Aranesp) 200 mcg IVP [facility] Ergocalciferol (Drisdol 50,000 Intl Units Cap) 1 cap PO Q7D [facility] Last Admin: 04/22/18 17:07 Dose: 1 cap Heparin Sodium (Porcine) (Heparin) 5,000 units SC Q8 [facility]; Protocol Last Admin: 04/23/18 13:46 Dose: 5,000 units Heparin Sodium (Porcine) (Heparin) 2,000 units IVP [facility] [place]; Protocol Iron Sucrose 100 mg/ Sodium (Chloride) 105 mls @ 210 mls/hr IVPB [facility]WK [facility] Stop: 05/18/18 10:29 Last Admin: 04/20/18 13:06 Dose: 210 mls/hr Midodrine (Proamatine) 10 mg PO MWF [facility] Last Admin: 04/23/18 10:41 Dose: Not Given Multi-Ingredient Ointment (Hydrophor Oint) 0 gm TOP Q12 [facility] Last Admin: 04/23/18 10:41 Dose: Not Given Nystatin (Nystop Topical Powder) 0 gm TOP BID [facility] Last Admin: 04/23/18 10:41 Dose: Not Given Pantoprazole Sodium (Protonix Ec Tab) 40 mg PO 0600,1600 [facility] Last Admin: 04/23/18 15:04 Dose: 40 mg Sevelamer HCl (Renagel) 800 mg PO TID [facility] Last Admin: 04/23/18 13:45 Dose: 800 mg Spironolactone (Aldactone) 50 mg PO DAILY [facility] Last Admin: 04/23/18 10:41 Dose: Not Given Trazodone HCl (Desyrel) 100 mg PO HS [facility] Last Admin: 04/22/18 21:32 Dose: 100 mg Vitamin B Complex/Vit C/Folic Acid (Nephro-Bhupinder) 1 tab PO 0800 [facility] Last Admin: 04/23/18 08:48 Dose: 1 tab - Labs Labs: 04/22/18 07:00 04/22/18 07:00 PT 13.2 SECONDS (9.4-12.5) H 04/03/18 15:44 INR 1.15 04/03/18 15:44 APTT 30.7 Seconds (25.1-36.5) 04/03/18 15:44 Attending/Attestation - Attestation I have personally seen and examined this patient.: Yes I have fully participated in the care of the patient.: Yes I have reviewed all pertinent clinical information, including history, physical exam and plan: Yes Notes (Text): 04/23/18 16:16 Medical record note made by the resident after discussion with my direction and input after the patient was personally seen and examined by me. I have reviewed the chart and agree that the record accurately reflects by personal performance of the history, physical exam, data review, and medical decision-making, in the course for the patient. I have also personally directed the plan of care.
--- NOTE | 2018-04-23 14:43 | CP.PCM.PN ---
Subjective - Date & Time of Evaluation Date of Evaluation: 04/23/18 Time of Evaluation: 14:42 - Subjective Subjective: Nephrology Consultation Note: Assessment: stable oligoanuric Acute Kidney Injury (N17.9) likely due to ATN, pre-renal state, intrasvasc hypovolemia, impaired renal perfusion, HD 04/05/18: first session anasarca severe symptomatic anemia due to GI bleed with gastric ulcers mild hyperkalemia and HAGMA, hyperphos hx of cirrhosis and etoh intra-ab lymphadenopathy morbid obesity acute influenza Plan HD tolerated well so far, on MWF schedule. 24 hr crcl: 6 and volme 200 mL. Maintain hemodynamics stable. Avoid hypotension. Patient not on ACEI/ARB due to recent FELIPE. added midodrine pre HD Monitor Input/Output, daily weights and renal function with basic metabolic panel added phos binders PRBC as needed. s/p 1 gram IV iron, now on weekly aranesp/IV iron GI consult, pt on PPI work up for FELIPE and anemia as ordered. GN work up neg hence will defer kidney biopsy. also pt with liver disease and morbidly obese. started weekly vit d consider further work up for ascites. started on aldactone 50 mg/d to reduce portal HTN d/c lasix Dose meds/antibiotics for reduced GFR. Avoid fleets enema/magnesium based laxatives. Avoid nephrotoxins/NSAIDs/ iodinated contrast (unless needed emergently) Glycemic control Further work up/management as per primary team SW for outpt hd placement. can f/up as outpt for renal recovery. stable for d/c from renal perspective once arranged for outpt HD. Av access will be planned later as outpt if no renal recovery in 3 months Thanks for allowing me to participate in care of your patient. Will follow patient with you. Please call if any Qs. had d/w team Dr Kenji Salmeron Office: [phone] Chief Complaint; fatigue Reason for consult: Acute Kidney Injury HPI: Pt is a 52 F with hx of alcoholism in past, cirrhosis (pt states got better on its own in past) but no regular follow up with PMD presented with complaints of fatigue and tiredness for last few days, found to have severe anemia and FELIPE Denies OTC/herbal meds but NSAIDs as alleve for last few days No recent iodinated contrast exposure. Noted obvious episodes of low BP. reports chronic leg swelling but more now denies smoking or etoh now ROS: c/o swelling in leg. had gastric ulcers on EGD Cardiovascular: No chest pain. Pulmonary: improved shortness of breath but with cough Gastrointestinal: denies abdominal pain No nausea. No vomiting. Genitourinary: No pain while urinating. Denies blood in urine. not much UOP All other negative except as mentioned in HPI Physical Examination: General Appearance: Comfortable, in no acute respiratory distress, co-operative . morbid obese Vitals reviewed and noted as below Head; Atraumatic, normocephalic ENT: no ulcers no thrush. Tongue is midline. Oropharynx: no rash or ulcers. EYES: Pupils are equal, round and reactive to light accommodation. Eye muscles and extraocular movement intact. Sclera is anicteric. Neck; supple no lymphadenopathy, no thyromegaly or bruit Lungs: Normal respiratory rate/effort. Breath sounds bilateral clear Heart: Normal rate. s1s2 normal. No rub or gallop. Extremities: 2-3+ edema. Neurological: Patient is alert, awake and oriented to person, place and time. No focal deficit. Strength bilateral appropriate and equal Skin: Warm and dry. Normal turgor. spider angioma rash upper chest. Palpitation: Normal elasticity for age Abdomen: Abdomen is soft. Bowel sounds +. There is no abdominal tenderness, no guarding/rigidity no organomegaly. limited due to obesity and abd wall edema Psych: normal insight and normal affect/mood MSK: no joint tenderness or swelling. Digits and nails normal, no deformity : kidney or bladder not palpable. has access as permacath Labs/imaging reviewed. Past medical history, past surgical history, family history, social history, allergy reviewed and noted as below Family hx: no hx of CKD. Rest non-contributory fena 0.3% intra-ab lymphadenopathy Objective - Vital Signs/Intake and Output Vital Signs (last 24 hours): Temp Pulse Resp BP Pulse Ox 98.4 F 91 H 18 104/49 L 96 04/23/18 13:40 04/23/18 13:40 04/23/18 13:40 04/23/18 13:40 04/23/18 13:40 - Medications Medications: Current Medications Acetaminophen (Tylenol 325mg Tab) 650 mg PO Q6 PRN PRN Reason: Fever >100.4 F Last Admin: 04/13/18 05:56 Dose: 650 mg Albuterol/Ipratropium (Duoneb 3 Mg/0.5 Mg (3 Ml) Ud) 3 ml IH [id number] [facility] Last Admin: 04/23/18 13:39 Dose: 3 ml Albuterol/Ipratropium (Duoneb 3 Mg/0.5 Mg (3 Ml) Ud) 3 ml IH Q2H PRN PRN Reason: Shortness of Breath Last Admin: 04/21/18 00:50 Dose: 3 ml Alprazolam (Xanax) 0.25 mg PO TID PRN; Protocol PRN Reason: Anxiety Last Admin: 04/23/18 13:45 Dose: 0.25 mg Darbepoetin Fletcher (Aranesp) 200 mcg IVP QWK [facility] Ergocalciferol (Drisdol 50,000 Intl Units Cap) 1 cap PO Q7D [facility] Last Admin: 04/22/18 17:07 Dose: 1 cap Heparin Sodium (Porcine) (Heparin) 5,000 units SC Q8 [facility]; Protocol Last Admin: 04/23/18 13:46 Dose: 5,000 units Iron Sucrose 100 mg/ Sodium (Chloride) 105 mls @ 210 mls/hr IVPB QWK [facility] Stop: 05/18/18 10:29 Last Admin: 04/20/18 13:06 Dose: 210 mls/hr Midodrine (Proamatine) 10 mg PO MWF [facility] Last Admin: 04/23/18 10:41 Dose: Not Given Multi-Ingredient Ointment (Hydrophor Oint) 0 gm TOP Q12 [facility] Last Admin: 04/23/18 10:41 Dose: Not Given Nystatin (Nystop Topical Powder) 0 gm TOP BID [facility] Last Admin: 04/23/18 10:41 Dose: Not Given Pantoprazole Sodium (Protonix Ec Tab) 40 mg PO 0600,1600 [facility] Last Admin: 04/23/18 06:25 Dose: 40 mg Sevelamer HCl (Renagel) 800 mg PO TID [facility] Last Admin: 04/23/18 13:45 Dose: 800 mg Spironolactone (Aldactone) 50 mg PO DAILY [facility] Last Admin: 04/23/18 10:41 Dose: Not Given Trazodone HCl (Desyrel) 100 mg PO HS [facility] Last Admin: 04/22/18 21:32 Dose: 100 mg Vitamin B Complex/Vit C/Folic Acid (Nephro-Bhupinder) 1 tab PO 0800 [facility] Last Admin: 04/23/18 08:48 Dose: 1 tab - Labs Labs: 04/22/18 07:00 04/22/18 07:00 PT 13.2 SECONDS (9.4-12.5) H 04/03/18 15:44 INR 1.15 04/03/18 15:44 APTT 30.7 Seconds (25.1-36.5) 04/03/18 15:44
--- NOTE | 2018-04-23 16:46 | CP.PCM.PN ---
Subjective - Date & Time of Evaluation Date of Evaluation: 04/23/18 Time of Evaluation: 09:35 - Subjective Subjective: Afebrile, not in distress. Objective - Vital Signs/Intake and Output Vital Signs (last 24 hours): Temp Pulse Resp BP Pulse Ox 98.4 F 91 H 18 113/49 L 96 04/23/18 13:40 04/23/18 15:34 04/23/18 13:40 04/23/18 15:34 04/23/18 13:40 - Medications Medications: Current Medications Acetaminophen (Tylenol 325mg Tab) 650 mg PO Q6 PRN PRN Reason: Fever >100.4 F Last Admin: 04/13/18 05:56 Dose: 650 mg Albuterol/Ipratropium (Duoneb 3 Mg/0.5 Mg (3 Ml) Ud) 3 ml IH [id number] [facility] Last Admin: 04/23/18 13:39 Dose: 3 ml Albuterol/Ipratropium (Duoneb 3 Mg/0.5 Mg (3 Ml) Ud) 3 ml IH Q2H PRN PRN Reason: Shortness of Breath Last Admin: 04/21/18 00:50 Dose: 3 ml Alprazolam (Xanax) 0.25 mg PO TID PRN; Protocol PRN Reason: Anxiety Last Admin: 04/23/18 13:45 Dose: 0.25 mg Benzonatate (Tessalon Perles) 100 mg PO TID PRN PRN Reason: Cough Last Admin: 04/23/18 16:12 Dose: 100 mg Darbepoetin Fletcher (Aranesp) 200 mcg IVP QWK [facility] Ergocalciferol (Drisdol 50,000 Intl Units Cap) 1 cap PO Q7D [facility] Last Admin: 04/22/18 17:07 Dose: 1 cap Heparin Sodium (Porcine) (Heparin) 5,000 units SC Q8 [facility]; Protocol Last Admin: 04/23/18 13:46 Dose: 5,000 units Heparin Sodium (Porcine) (Heparin) 2,000 units IVP MWF [facility]; Protocol Iron Sucrose 100 mg/ Sodium (Chloride) 105 mls @ 210 mls/hr IVPB QWK [facility] Stop: 05/18/18 10:29 Last Admin: 04/20/18 13:06 Dose: 210 mls/hr Midodrine (Proamatine) 10 mg PO MWF [facility] Last Admin: 04/23/18 10:41 Dose: Not Given Multi-Ingredient Ointment (Hydrophor Oint) 0 gm TOP Q12 [facility] Last Admin: 04/23/18 10:41 Dose: Not Given Nystatin (Nystop Topical Powder) 0 gm TOP BID [facility] Last Admin: 04/23/18 10:41 Dose: Not Given Pantoprazole Sodium (Protonix Ec Tab) 40 mg PO 0600,1600 [facility] Last Admin: 04/23/18 15:04 Dose: 40 mg Sevelamer HCl (Renagel) 800 mg PO TID [facility] Last Admin: 04/23/18 13:45 Dose: 800 mg Spironolactone (Aldactone) 50 mg PO DAILY [facility] Last Admin: 04/23/18 10:41 Dose: Not Given Trazodone HCl (Desyrel) 100 mg PO HS [facility] Last Admin: 04/22/18 21:32 Dose: 100 mg Vitamin B Complex/Vit C/Folic Acid (Nephro-Bhupinder) 1 tab PO 0800 [facility] Last Admin: 04/23/18 08:48 Dose: 1 tab - Labs Labs: 04/22/18 07:00 04/22/18 07:00 PT 13.2 SECONDS (9.4-12.5) H 04/03/18 15:44 INR 1.15 04/03/18 15:44 APTT 30.7 Seconds (25.1-36.5) 04/03/18 15:44 - Constitutional Appears: Chronically Ill - Head Exam Head Exam: NORMAL INSPECTION - Neck Exam Neck Exam: absent: Meningismus - Respiratory Exam Respiratory Exam: Decreased Breath Sounds - Cardiovascular Exam Cardiovascular Exam: +S1, +S2 - GI/Abdominal Exam GI & Abdominal Exam: Soft. absent: Tenderness Assessment and Plan - Assessment and Plan (Free Text) Plan: Assessment S/P treatment of Influenza A infection S/P UTI with Klebsiella chronic lymphedema of lower extremities without evidence of cellulitis morbid obesity with BMI 52 chronic renal failure on dialysis R/O peripheral vascular disease Plan will continue to monitor clinically off antibiotics since she is at risk for nosocomial infections
[2018-04-24] MEDS: Albuterol-Ipratrop 3 mg / 0.5 (3 ml) UD IH SCH ×4 (01:07→19:12)
[2018-04-24] MEDS: Pantoprazole 40 mg EC Tab PO SCH ×2 (05:30→16:10)
[2018-04-24 07:05] LABS: BASO # 0.04 K/mm3 (0.0-2.0); BASO % 0.4 % (0.0-3.0); EOS # 0.3 (0.0-0.7); EOS % 3.2 % (1.5-5.0); GRAN # 7.93 (1.4-6.5); GRAN % 74.6 % (50.0-68.0); HEMOGLOBIN 8.4 g/dL (12.0-16.0); LYMPH # 1.1 (1.2-3.4); LYMPH % 10.1 % (22.0-35.0); MEAN CELL VOLUME 89.1 fl (80.0-105.0); MEAN CORPUSCULAR HGB CONC 30.3 g/dl (31.0-37.0); MEAN PLATELET VOLUME 8.5 fl (7.0-11.0); MONO # 1.2 (0.1-0.6); MONO % 11.7 % (1.0-6.0); RBC 3.11 10^6/uL (3.5-6.1); RED CELL DISTRIBUTION WIDTH 19.7 % (11.5-14.5); WHITE BLOOD COUNT 10.6 10^3/uL (4.5-11.0)
[2018-04-24 07:25] LABS: ALB/GLOB RATIO 0.6 (1.1-1.8); ALBUMIN 1.9 g/dL (3.0-4.8); CALCIUM 7.5 mg/dL (8.4-10.5)
[2018-04-24] MEDS: Multivitamin Vitamin B Complex (Nephro-Vite) Tab PO SCH (10:54)
[2018-04-24] MEDS: Nystatin 100,000 Units/gm Topical Pow(15 gm) TOP SCH ×2 (10:55→18:36)
[2018-04-24] MEDS: Petrolatum-Mineral Oil Oint (100gm) TOP SCH ×2 (10:55→22:01)
--- NOTE | 2018-04-24 11:21 | CP.PCM.PN ---
Subjective - Date & Time of Evaluation Date of Evaluation: 04/24/18 Time of Evaluation: 11:18 - Subjective Subjective: Nephrology Consultation Note: Assessment: stable oligoanuric Acute Kidney Injury (N17.9) likely due to ATN, pre-renal state, intrasvasc hypovolemia, impaired renal perfusion, HD 04/05/18: first session anasarca severe symptomatic anemia due to GI bleed with gastric ulcers mild hyperkalemia and HAGMA, hyperphos hx of cirrhosis and etoh intra-ab lymphadenopathy morbid obesity acute influenza Plan HD tolerated well so far, on MWF schedule. 24 hr crcl: 6 and volme 200 mL. Maintain hemodynamics stable. Avoid hypotension. Patient not on ACEI/ARB due to recent FELIPE. added midodrine pre HD Monitor Input/Output, daily weights and renal function with basic metabolic panel added phos binders PRBC as needed. s/p 1 gram IV iron, now on weekly aranesp/IV iron GI consult, pt on PPI work up for FELIPE and anemia as ordered. GN work up neg hence will defer kidney biopsy. also pt with liver disease and morbidly obese. started weekly vit d consider further work up for ascites. started on aldactone 50 mg/d to reduce portal HTN d/c lasix. stool for c.diff sent Dose meds/antibiotics for reduced GFR. Avoid fleets enema/magnesium based laxa tives. Avoid nephrotoxins/NSAIDs/ iodinated contrast (unless needed emergently) Glycemic control Further work up/management as per primary team can f/up as outpt for renal recovery. stable for d/c from renal perspective, she is arranged for outpt HD. Av access will be planned later as outpt if no renal recovery in 3 months Thanks for allowing me to participate in care of your patient. Will follow patient with you. Please call if any Qs. had d/w team Dr Kenji Salmeron Office: [phone] Chief Complaint; fatigue Reason for consult: Acute Kidney Injury HPI: Pt is a 52 F with hx of alcoholism in past, cirrhosis (pt states got better on its own in past) but no regular follow up with PMD presented with complaints of fatigue and tiredness for last few days, found to have severe anemia and FELIPE Denies OTC/herbal meds but NSAIDs as alleve for last few days No recent iodinated contrast exposure. Noted obvious episodes of low BP. reports chronic leg swelling but more now denies smoking or etoh now ROS: c/o swelling in leg. had gastric ulcers on EGD Cardiovascular: No chest pain. Pulmonary: improved shortness of breath but with cough Gastrointestinal: denies abdominal pain No nausea. No vomiting. had loose stool multiple episodes Genitourinary: No pain while urinating. Denies blood in urine. not much UOP All other negative except as mentioned in HPI feels sad that she is still bedbound Physical Examination: General Appearance: Comfortable, in no acute respiratory distress, co-operative . morbid obese Vitals reviewed and noted as below Head; Atraumatic, normocephalic ENT: no ulcers no thrush. Tongue is midline. Oropharynx: no rash or ulcers. EYES: Pupils are equal, round and reactive to light accommodation. Eye muscles and extraocular movement intact. Sclera is anicteric. Neck; supple no lymphadenopathy, no thyromegaly or bruit Lungs: Normal respiratory rate/effort. Breath sounds bilateral clear Heart: Normal rate. s1s2 normal. No rub or gallop. Extremities: 2-3+ edema. Neurological: Patient is alert, awake and oriented to person, place and time. No focal deficit. Strength bilateral appropriate and equal Skin: Warm and dry. Normal turgor. spider angioma rash upper chest. Palpitation: Normal elasticity for age Abdomen: Abdomen is soft. Bowel sounds +. There is no abdominal tenderness, no guarding/rigidity no organomegaly. limited due to obesity and abd wall edema Psych: normal insight and normal affect/mood MSK: no joint tenderness or swelling. Digits and nails normal, no deformity : kidney or bladder not palpable. has access as permacat Labs/imaging reviewed. Past medical history, past surgical history, family history, social history, allergy reviewed and noted as below Family hx: no hx of CKD. Rest non-contributory fena 0.3% intra-ab lymphadenopathy Objective - Vital Signs/Intake and Output Vital Signs (last 24 hours): Temp Pulse Resp BP Pulse Ox 99.7 F H 94 H 20 104/54 L 94 L 04/24/18 06:00 04/24/18 06:00 04/24/18 06:00 04/24/18 06:30 04/24/18 06:00 Intake and Output: 04/24/18 04/24/18 06:59 18:59 Intake Total 240 Balance 240 - Medications Medications: Current Medications Acetaminophen (Tylenol 325mg Tab) 650 mg PO Q6 PRN PRN Reason: Fever >100.4 F Last Admin: 04/13/18 05:56 Dose: 650 mg Albuterol/Ipratropium (Duoneb 3 Mg/0.5 Mg (3 Ml) Ud) 3 ml IH [id number] [facility] Last Admin: 04/24/18 08:13 Dose: 3 ml Albuterol/Ipratropium (Duoneb 3 Mg/0.5 Mg (3 Ml) Ud) 3 ml IH Q2H PRN PRN Reason: Shortness of Breath Last Admin: 04/21/18 00:50 Dose: 3 ml Alprazolam (Xanax) 0.25 mg PO TID PRN; Protocol PRN Reason: Anxiety Last Admin: 04/23/18 13:45 Dose: 0.25 mg Benzonatate (Tessalon Perles) 100 mg PO TID PRN PRN Reason: Cough Last Admin: 04/23/18 16:12 Dose: 100 mg Darbepoetin Fletcher (Aranesp) 200 mcg IVP QWK [facility] Ergocalciferol (Drisdol 50,000 Intl Units Cap) 1 cap PO Q7D [facility] Last Admin: 04/22/18 17:07 Dose: 1 cap Heparin Sodium (Porcine) (Heparin) 5,000 units SC Q8 [facility]; Protocol Last Admin: 04/24/18 05:29 Dose: 5,000 units Heparin Sodium (Porcine) (Heparin) 2,000 units IVP MWF [facility]; Protocol Iron Sucrose 100 mg/ Sodium (Chloride) 105 mls @ 210 mls/hr IVPB QWK [facility] Stop: 05/18/18 10:29 Last Admin: 04/20/18 13:06 Dose: 210 mls/hr Midodrine (Proamatine) 10 mg PO MWF [facility] Last Admin: 04/23/18 10:41 Dose: Not Given Multi-Ingredient Ointment (Hydrophor Oint) 0 gm TOP Q12 [facility] Last Admin: 04/24/18 10:55 Dose: 1 units Nystatin (Nystop Topical Powder) 0 gm TOP BID [facility] Last Admin: 04/24/18 10:55 Dose: 1 appl Pantoprazole Sodium (Protonix Ec Tab) 40 mg PO 0600,1600 [facility] Last Admin: 04/24/18 05:30 Dose: 40 mg Sevelamer HCl (Renagel) 800 mg PO BID [facility] Last Admin: 04/24/18 10:54 Dose: 800 mg Spironolactone (Aldactone) 50 mg PO DAILY [facility] Last Admin: 04/24/18 10:56 Dose: Not Given Trazodone HCl (Desyrel) 100 mg PO HS [facility] Last Admin: 04/23/18 21:39 Dose: 100 mg Vitamin B Complex/Vit C/Folic Acid (Nephro-Bhupinder) 1 tab PO 0800 [facility] Last Admin: 04/24/18 10:54 Dose: 1 tab - Labs Labs: 04/24/18 06:30 04/24/18 06:30 PT 13.2 SECONDS (9.4-12.5) H 04/03/18 15:44 INR 1.15 04/03/18 15:44 APTT 30.7 Seconds (25.1-36.5) 04/03/18 15:44
[2018-04-24] MEDS: Potassium Chloride 20 mEq ER Tab PO SCH ×2 (12:14→18:35)
[2018-04-24] MEDS ORDERED: Vancomycin 25 MG/ML PO SCH ×2 (14:00→18:00)
--- NOTE | 2018-04-24 15:37 | CP.PCM.PN ---
<Nhung Anne - Last Filed: 04/24/18 15:33> Subjective - Date & Time of Evaluation Date of Evaluation: 04/24/18 Time of Evaluation: 09:30 - Subjective Subjective: Nhung Anne Y1 Hospital Progress Note Patient seen and examined bedside. Admits to diarrhea overnight and c. diff antigen/toxin is positive. Started on vancomycin. Objective - Vital Signs/Intake and Output Vital Signs (last 24 hours): Temp Pulse Resp BP Pulse Ox 100.0 F H 95 H 20 115/54 L 94 L 04/24/18 14:00 04/24/18 14:00 04/24/18 14:00 04/24/18 14:00 04/24/18 14:00 Intake and Output: 04/24/18 04/24/18 06:59 18:59 Intake Total 240 Balance 240 - Medications Medications: Current Medications Acetaminophen (Tylenol 325mg Tab) 650 mg PO Q6 PRN PRN Reason: Fever >100.4 F Last Admin: 04/13/18 05:56 Dose: 650 mg Albuterol/Ipratropium (Duoneb 3 Mg/0.5 Mg (3 Ml) Ud) 3 ml IH [id number] [facility] Last Admin: 04/24/18 13:06 Dose: 3 ml Albuterol/Ipratropium (Duoneb 3 Mg/0.5 Mg (3 Ml) Ud) 3 ml IH Q2H PRN PRN Reason: Shortness of Breath Last Admin: 04/21/18 00:50 Dose: 3 ml Alprazolam (Xanax) 0.25 mg PO TID PRN; Protocol PRN Reason: Anxiety Last Admin: 04/23/18 13:45 Dose: 0.25 mg Benzonatate (Tessalon Perles) 100 mg PO TID PRN PRN Reason: Cough Last Admin: 04/23/18 16:12 Dose: 100 mg Darbepoetin Fletcher (Aranesp) 200 mcg IVP QWK [facility] Ergocalciferol (Drisdol 50,000 Intl Units Cap) 1 cap PO Q7D [facility] Last Admin: 04/22/18 17:07 Dose: 1 cap Heparin Sodium (Porcine) (Heparin) 5,000 units SC Q8 [facility]; Protocol Last Admin: 04/24/18 13:41 Dose: 5,000 units Heparin Sodium (Porcine) (Heparin) 2,000 units IVP [facility]; Protocol Iron Sucrose 100 mg/ Sodium (Chloride) 105 mls @ 210 mls/hr IVPB QWK [facility] Stop: 05/18/18 10:29 Last Admin: 04/20/18 13:06 Dose: 210 mls/hr Midodrine (Proamatine) 10 mg PO [facility] Last Admin: 04/23/18 10:41 Dose: Not Given Multi-Ingredient Ointment (Hydrophor Oint) 0 gm TOP Q12 [facility] Last Admin: 04/24/18 10:55 Dose: 1 units Nystatin (Nystop Topical Powder) 0 gm TOP BID [facility] Last Admin: 04/24/18 10:55 Dose: 1 appl Pantoprazole Sodium (Protonix Ec Tab) 40 mg PO 0600,1600 [facility] Last Admin: 04/24/18 05:30 Dose: 40 mg Potassium Chloride (K-Dur 20 Meq Er Tab) 20 meq PO BID [facility] Stop: 04/24/18 18:01 Last Admin: 04/24/18 12:14 Dose: 20 meq Sevelamer HCl (Renagel) 800 mg PO BID [facility] Last Admin: 04/24/18 10:54 Dose: 800 mg Spironolactone (Aldactone) 50 mg PO DAILY [facility] Last Admin: 04/24/18 10:56 Dose: Not Given Trazodone HCl (Desyrel) 100 mg PO HS [facility] Last Admin: 04/23/18 21:39 Dose: 100 mg Vancomycin HCl (Vancocin 25 Mg/Ml (Oral Use)) 250 mg PO QID [facility]; Protocol Stop: 05/04/18 14:00 Vitamin B Complex/Vit C/Folic Acid (Nephro-Bhupinder) 1 tab PO 0800 [facility] Last Admin: 04/24/18 10:54 Dose: 1 tab - Labs Labs: 04/24/18 06:30 04/24/18 06:30 PT 13.2 SECONDS (9.4-12.5) H 04/03/18 15:44 INR 1.15 04/03/18 15:44 APTT 30.7 Seconds (25.1-36.5) 04/03/18 15:44 - Additional Findings Additional findings: - Constitutional Appears: No Acute Distress - Head Exam Head Exam: NORMAL INSPECTION, ATRAUMATIC - Eye Exam Eye Exam: EOMI, PERRL - ENT Exam ENT Exam: Mucous Membranes Moist, Normal Exam - Neck Exam Neck exam: Positive for: Normal Inspection - Respiratory Exam Respiratory Exam: Clear to Auscultation Bilateral. absent: Rales, Rhonchi, Wheezes, respiratory distress - Cardiovascular Exam Cardiovascular Exam: Regular rhythm, +S1, +S2. absent: Systolic Murmur - GI/Abdominal Exam GI & Abdominal Exam: Soft. Bowel sounds heard in all 4 quadrants absent: Distended, Guarding, Rebound, Tenderness - Extremities Exam Extremities exam: Positive for: pedal edema Additional comments: 2+ edema noted on both legs -no draining/weeping/pus noted on lower extremities Assessment and Plan - Assessment and Plan (Free Text) Assessment: Patient is a 52 yo F with past medical history liver failure, morbid obesity, and EtOH abuse presents to [facility] for worsening weakness and admitted for management of anemia and FELIPE with metabolic acidosis. Focusing on outpatient HD placement and PT at this time. Plan: C. Diff -cdiff antigen and toxin positive -PO vancomycine day 1 out of 10 -admits to several episodes of watery diarrhea on 04/23/18 Acute renal failure - improved -on HD MWF -Working with case operator for outpatient HD setup, working on placement -Renal US is unremarkable -Renagel 800 mg PO TID -Strict I's and O's -Nephrology on consult, Dr. Salmeron Chronic lymphedema of B/L legs -podiatry on consult, no further recommendations, local wound care for now - not currently draining/weeping -repeat ext US shows possible right SFA occlusive disease, limited study due to artifact -wound culture grew Enterobacter Cloacae, E. faecalis - superficial bacteria colonizers -PT recommends [facility] -daily PT rehab Microcytic anemia -s/p total 11 units pRBCs, 2 FFPs -oral iron started -endoscopy showed 3 non bleeding gastric ulcers, largest one 8mm -iron studies shows likely iron deficiency -Head CT unremarkable -CTAP shows adenopathy of the hepatic gastric ligament -GI on consult, Dr. Melo Fever - resolved -afebrile, no WBC -positive flu type A, completed course of tamiflu -completed course of merrem for UTI with klebsiella -CXR showed moderate cardiomegaly, vascular congestion -blood culture shows no growth after 5 days -procalcitonin mildly elevated Elevated BNP -BNP 99999 on admission -Echo showed EF of 68%, mild TR/MR, mild pulm HTN, borderline LVH Depression -Psych on consult, Dr. Ramos -continue trazodone PPX/Diet -protonix, heparin -renal diet Patient seen and case discussed with attending, Dr. Ojeda <Sagrario Ojeda - Last Filed: 04/28/18 15:09> Objective - Vital Signs/Intake and Output Vital Signs (last 24 hours): Temp Pulse Resp BP Pulse Ox 98.2 F 88 16 99/46 L 100 04/27/18 22:00 04/27/18 22:00 04/27/18 22:00 04/27/18 22:00 04/27/18 22:00 - Medications Medications: Current Medications Acetaminophen (Tylenol 325mg Tab) 650 mg PO Q6 PRN PRN Reason: Fever >100.4 F Last Admin: 04/13/18 05:56 Dose: 650 mg Albuterol/Ipratropium (Duoneb 3 Mg/0.5 Mg (3 Ml) Ud) 3 ml IH [id number] [facility] Last Admin: 04/28/18 13:29 Dose: 3 ml Albuterol/Ipratropium (Duoneb 3 Mg/0.5 Mg (3 Ml) Ud) 3 ml IH Q2H PRN PRN Reason: Shortness of Breath Last Admin: 04/21/18 00:50 Dose: 3 ml Alprazolam (Xanax) 0.25 mg PO TID PRN; Protocol PRN Reason: Anxiety Last Admin: 04/27/18 17:13 Dose: 0.25 mg Benzonatate (Tessalon Perles) 100 mg PO TID PRN PRN Reason: Cough Last Admin: 04/25/18 15:43 Dose: 100 mg Darbepoetin Fletcher (Aranesp) 200 mcg IVP QWK [facility] Ergocalciferol (Drisdol 50,000 Intl Units Cap) 1 cap PO Q7D [facility] Last Admin: 04/22/18 17:07 Dose: 1 cap Fluoxetine HCl (Prozac) 10 mg PO DAILY [facility] Last Admin: 04/28/18 09:56 Dose: 10 mg Heparin Sodium (Porcine) (Heparin) 5,000 units SC Q8 [facility]; Protocol Last Admin: 04/28/18 14:25 Dose: 5,000 units Heparin Sodium (Porcine) (Heparin) 2,000 units IVP [facility]; Protocol Last Admin: 04/25/18 12:25 Dose: 2,000 units Iron Sucrose 100 mg/ Sodium (Chloride) 105 mls @ 210 mls/hr IVPB QWK [facility] Stop: 05/18/18 10:29 Last Admin: 04/27/18 11:13 Dose: 210 mls/hr Midodrine (Proamatine) 10 mg PO F [facility] Last Admin: 04/27/18 12:14 Dose: 10 mg Multi-Ingredient Ointment (Hydrophor Oint) 0 gm TOP Q12 [facility] Last Admin: 04/28/18 11:00 Dose: Not Given Nystatin (Nystop Topical Powder) 0 gm TOP BID [facility] Last Admin: 04/28/18 11:00 Dose: Not Given Pantoprazole Sodium (Protonix Ec Tab) 40 mg PO 0600,1600 [facility] Last Admin: 04/28/18 05:37 Dose: 40 mg Spironolactone (Aldactone) 50 mg PO DAILY [facility] Stop: 05/25/18 10:01 Last Admin: 04/28/18 09:56 Dose: Not Given Vancomycin HCl (Vancocin 25 Mg/Ml (Oral Use)) 125 mg PO QID [facility]; Protocol Stop: 05/04/18 14:00 Last Admin: 04/28/18 14:26 Dose: 125 mg Vitamin B Complex/Vit C/Folic Acid (Nephro-Bhupinder) 1 tab PO 0800 [facility] Last Admin: 04/28/18 09:55 Dose: 1 tab Zolpidem Tartrate (Ambien) 5 mg PO HS [facility]; Protocol Last Admin: 04/27/18 21:19 Dose: 5 mg - Labs Labs: 04/28/18 06:30 04/28/18 06:30 PT 13.2 SECONDS (9.4-12.5) H 04/03/18 15:44 INR 1.15 04/03/18 15:44 APTT 30.7 Seconds (25.1-36.5) 04/03/18 15:44 Attending/Attestation - Attestation I have personally seen and examined this patient.: Yes I have fully participated in the care of the patient.: Yes I have reviewed all pertinent clinical information, including history, physical exam and plan: Yes Notes (Text): 04/28/18 15:09 Medical record note made by the resident after discussion with my direction and input after the patient was personally seen and examined by me. I have reviewed the chart and agree that the record accurately reflects by personal performance of the history, physical exam, data review, and medical decision-making, in the course for the patient. I have also personally directed the plan of care.
[2018-04-24] MEDS: Vancomycin 25 MG/ML PO SCH ×2 (18:31→22:00)
--- NOTE | 2018-04-24 20:03 | PN ---
DATE: 04/24/2018 SUBJECTIVE: The patient is in bed in no acute distress. PHYSICAL EXAMINATION: VITAL SIGNS: The patient has a temperature of 100.2, blood pressure is 115/50, respiratory 18. HEENT: Unremarkable. NECK: Supple. HEART: Normal S1, S2. LUNGS: Have decreased breath sounds. ABDOMEN: Soft and nontender. LABORATORY DATA: Laboratory examination reveals a white count of 10,000. Chemistries are noted. Urinalysis is reviewed. Serology is noted. Positive for influenza and microbiology is reviewed. The patient's stool for Clostridium difficile antigen and toxin are both positive. ASSESSMENT AND PLAN: This 52-year-old female, status post treatment, influenza A infection and urinary tract infection with Klebsiella, chronic lower extremity edema and now with pseudomembranous colitis on p.o. vancomycin day #1 of 10 days. We will follow with you. Orion Thompson MD
[2018-04-25] MEDS: Albuterol-Ipratrop 3 mg / 0.5 (3 ml) UD IH SCH ×4 (01:08→20:14)
[2018-04-25] MEDS: Pantoprazole 40 mg EC Tab PO SCH ×2 (05:28→18:12)
[2018-04-25 07:08] LABS: BASO # 0.05 K/mm3 (0.0-2.0); BASO % 0.4 % (0.0-3.0); EOS # 0.4 (0.0-0.7); EOS % 3.2 % (1.5-5.0); GRAN # 10.23 (1.4-6.5); GRAN % 75.5 % (50.0-68.0); HEMOGLOBIN 8.8 g/dL (12.0-16.0); LYMPH # 1.3 (1.2-3.4); LYMPH % 9.7 % (22.0-35.0); MEAN CELL VOLUME 88.6 fl (80.0-105.0); MEAN CORPUSCULAR HEMOGLOBIN 27.1 pg (25.0-35.0); MEAN CORPUSCULAR HGB CONC 30.6 g/dl (31.0-37.0); MEAN PLATELET VOLUME 8.3 fl (7.0-11.0); MONO # 1.5 (0.1-0.6); MONO % 11.2 % (1.0-6.0); RBC 3.25 10^6/uL (3.5-6.1); RED CELL DISTRIBUTION WIDTH 19.3 % (11.5-14.5); WHITE BLOOD COUNT 13.6 10^3/uL (4.5-11.0)
[2018-04-25 07:44] LABS: ALB/GLOB RATIO 0.6 (1.1-1.8); ALBUMIN 1.9 g/dL (3.0-4.8); CALCIUM 7.5 mg/dL (8.4-10.5)
[2018-04-25] MEDS: Multivitamin Vitamin B Complex (Nephro-Vite) Tab PO SCH (08:01)
[2018-04-25] MEDS: Petrolatum-Mineral Oil Oint (100gm) TOP SCH ×2 (11:35→22:02)
[2018-04-25] MEDS: Nystatin 100,000 Units/gm Topical Pow(15 gm) TOP SCH (11:35)
[2018-04-25] MEDS: Vancomycin 25 MG/ML PO SCH ×4 (11:36→22:03)
--- NOTE | 2018-04-25 14:30 | CP.PCM.PN ---
<Nhung Anne - Last Filed: 04/25/18 14:24> Subjective - Date & Time of Evaluation Date of Evaluation: 04/25/18 Time of Evaluation: 11:30 - Subjective Subjective: Nhung Anne PGY1 Hospital Progress Note Patient seen and examined at bedside today. Admits to 3 episodes of watery diarrhea overnight. States her mood is down. Receiving HD today. Offers no new complaints. Objective - Vital Signs/Intake and Output Vital Signs (last 24 hours): Temp Pulse Resp BP Pulse Ox 99 F 93 H 18 97/47 L 97 04/25/18 06:00 04/25/18 06:00 04/25/18 06:00 04/25/18 06:00 04/25/18 06:00 Intake and Output: 04/25/18 04/25/18 06:59 18:59 Intake Total 30 Balance 30 - Medications Medications: Current Medications Acetaminophen (Tylenol 325mg Tab) 650 mg PO Q6 PRN PRN Reason: Fever >100.4 F Last Admin: 04/13/18 05:56 Dose: 650 mg Albuterol/Ipratropium (Duoneb 3 Mg/0.5 Mg (3 Ml) Ud) 3 ml IH [id number] MAKAYLA Last Admin: 04/25/18 13:41 Dose: 3 ml Albuterol/Ipratropium (Duoneb 3 Mg/0.5 Mg (3 Ml) Ud) 3 ml IH Q2H PRN PRN Reason: Shortness of Breath Last Admin: 04/21/18 00:50 Dose: 3 ml Alprazolam (Xanax) 0.25 mg PO TID PRN; Protocol PRN Reason: Anxiety Last Admin: 04/24/18 16:08 Dose: 0.25 mg Benzonatate (Tessalon Perles) 100 mg PO TID PRN PRN Reason: Cough Last Admin: 04/23/18 16:12 Dose: 100 mg Darbepoetin Fletcher (Aranesp) 200 mcg IVP QWK [facility] Ergocalciferol (Drisdol 50,000 Intl Units Cap) 1 cap PO Q7D MAKAYLA Last Admin: 04/22/18 17:07 Dose: 1 cap Heparin Sodium (Porcine) (Heparin) 5,000 units SC Q8 [facility]; Protocol Last Admin: 04/25/18 05:26 Dose: 5,000 units Heparin Sodium (Porcine) (Heparin) 2,000 units IVP [facility]; Protocol Last Admin: 04/25/18 11:35 Dose: Not Given Iron Sucrose 100 mg/ Sodium (Chloride) 105 mls @ 210 mls/hr IVPB QWK [facility] Stop: 05/18/18 10:29 Last Admin: 04/20/18 13:06 Dose: 210 mls/hr Midodrine (Proamatine) 10 mg PO F [facility] Last Admin: 04/25/18 08:01 Dose: 10 mg Multi-Ingredient Ointment (Hydrophor Oint) 0 gm TOP Q12 [facility] Last Admin: 04/25/18 11:35 Dose: Not Given Nystatin (Nystop Topical Powder) 0 gm TOP BID [facility] Last Admin: 04/25/18 11:35 Dose: Not Given Pantoprazole Sodium (Protonix Ec Tab) 40 mg PO 0600,1600 [facility] Last Admin: 04/25/18 05:28 Dose: 40 mg Spironolactone (Aldactone) 50 mg PO DAILY [facility] Last Admin: 04/25/18 11:35 Dose: Not Given Trazodone HCl (Desyrel) 100 mg PO HS [facility] Last Admin: 04/24/18 22:01 Dose: 100 mg Vancomycin HCl (Vancocin 25 Mg/Ml (Oral Use)) 125 mg PO QID [facility]; Protocol Stop: 05/04/18 14:00 Last Admin: 04/25/18 11:36 Dose: Not Given Vitamin B Complex/Vit C/Folic Acid (Nephro-Bhupinder) 1 tab PO 0800 [facility] Last Admin: 04/25/18 08:01 Dose: 1 tab - Labs Labs: 04/25/18 06:45 04/25/18 06:45 PT 13.2 SECONDS (9.4-12.5) H 04/03/18 15:44 INR 1.15 04/03/18 15:44 APTT 30.7 Seconds (25.1-36.5) 04/03/18 15:44 - Additional Findings Additional findings: - Constitutional Appears: No Acute Distress - Head Exam Head Exam: NORMAL INSPECTION, ATRAUMATIC - Eye Exam Eye Exam: EOMI, PERRL - ENT Exam ENT Exam: Mucous Membranes Moist, Normal Exam - Neck Exam Neck exam: Positive for: Normal Inspection - Respiratory Exam Respiratory Exam: Clear to Auscultation Bilateral. absent: Rales, Rhonchi, Wheezes, respiratory distress - Cardiovascular Exam Cardiovascular Exam: Regular rhythm, +S1, +S2. absent: Systolic Murmur - GI/Abdominal Exam GI & Abdominal Exam: Soft. Bowel sounds heard in all 4 quadrants absent: Distended, Guarding, Rebound, Tenderness - Extremities Exam Extremities exam: Positive for: pedal edema Additional comments: 2+ edema noted on both legs -no draining/weeping/pus noted on lower extremities Assessment and Plan - Assessment and Plan (Free Text) Assessment: Patient is a 52 yo F with past medical history liver failure, morbid obesity, and EtOH abuse presents to [facility] for worsening weakness and admitted for manage ment of anemia and FELIPE with metabolic acidosis. Focusing on outpatient HD placement and PT at this time. Psych put on consult for depressed mood. Plan: C. Diff -cdiff antigen and toxin positive -PO vancomycine day 2 out of 10 -admits to 3 episodes of watery diarrhea overnight -mild leukocytosis likely 2/2 c diff infection, afebrile Acute renal failure - improved -on HD MWF -Working with corrections caseworker for outpatient HD setup, working on placement -Renal US is unremarkable -Renagel 800 mg PO TID -Strict I's and O's -Nephrology on consult, Dr. Salmeron Chronic lymphedema of B/L legs -podiatry on consult, no further recommendations, local wound care for now - not currently draining/weeping -repeat ext US shows possible right SFA occlusive disease, limited study due to artifact -wound culture grew Enterobacter Cloacae, E. faecalis - superficial bacteria colonizers -PT recommends JENNA -daily PT rehab Microcytic anemia -s/p total 11 units pRBCs, 2 FFPs -oral iron started -endoscopy showed 3 non bleeding gastric ulcers, largest one 8mm -iron studies shows likely iron deficiency -Head CT unremarkable -CTAP shows adenopathy of the hepatic gastric ligament -GI on consult, Dr. Melo Fever - resolved -afebrile, no WBC -positive flu type A, completed course of tamiflu -completed course of merrem for UTI with klebsiella -CXR showed moderate cardiomegaly, vascular congestion -blood culture shows no growth after 5 days -procalcitonin mildly elevated Elevated BNP -BNP 00372 on admission -Echo showed EF of 68%, mild TR/MR, mild pulm HTN, borderline LVH Depression -Psych on consult, Dr. Ramos -continue trazodone PPX/Diet -protonix, heparin -renal diet Patient seen and case discussed with attending, Dr. Ojeda <Sagrario Ojeda - Last Filed: 04/28/18 15:09> Objective - Vital Signs/Intake and Output Vital Signs (last 24 hours): Temp Pulse Resp BP Pulse Ox 98.2 F 88 16 99/46 L 100 04/27/18 22:00 04/27/18 22:00 04/27/18 22:00 04/27/18 22:00 04/27/18 22:00 - Medications Medications: Current Medications Acetaminophen (Tylenol 325mg Tab) 650 mg PO Q6 PRN PRN Reason: Fever >100.4 F Last Admin: 04/13/18 05:56 Dose: 650 mg Albuterol/Ipratropium (Duoneb 3 Mg/0.5 Mg (3 Ml) Ud) 3 ml IH [id number] MAKAYLA Last Admin: 04/28/18 13:29 Dose: 3 ml Albuterol/Ipratropium (Duoneb 3 Mg/0.5 Mg (3 Ml) Ud) 3 ml IH Q2H PRN PRN Reason: Shortness of Breath Last Admin: 04/21/18 00:50 Dose: 3 ml Alprazolam (Xanax) 0.25 mg PO TID PRN; Protocol PRN Reason: Anxiety Last Admin: 04/27/18 17:13 Dose: 0.25 mg Benzonatate (Tessalon Perles) 100 mg PO TID PRN PRN Reason: Cough Last Admin: 04/25/18 15:43 Dose: 100 mg Darbepoetin Fletcher (Aranesp) 200 mcg IVP QWK [facility] Ergocalciferol (Drisdol 50,000 Intl Units Cap) 1 cap PO Q7D [facility] Last Admin: 04/22/18 17:07 Dose: 1 cap Fluoxetine HCl (Prozac) 10 mg PO DAILY [facility] Last Admin: 04/28/18 09:56 Dose: 10 mg Heparin Sodium (Porcine) (Heparin) 5,000 units SC Q8 [facility]; Protocol Last Admin: 04/28/18 14:25 Dose: 5,000 units Heparin Sodium (Porcine) (Heparin) 2,000 units IVP [facility]; Protocol Last Admin: 04/25/18 12:25 Dose: 2,000 units Iron Sucrose 100 mg/ Sodium (Chloride) 105 mls @ 210 mls/hr IVPB QWK [facility] Stop: 05/18/18 10:29 Last Admin: 04/27/18 11:13 Dose: 210 mls/hr Midodrine (Proamatine) 10 mg PO MWF [facility] Last Admin: 04/27/18 12:14 Dose: 10 mg Multi-Ingredient Ointment (Hydrophor Oint) 0 gm TOP Q12 [facility] Last Admin: 04/28/18 11:00 Dose: Not Given Nystatin (Nystop Topical Powder) 0 gm TOP BID [facility] Last Admin: 04/28/18 11:00 Dose: Not Given Pantoprazole Sodium (Protonix Ec Tab) 40 mg PO 0600,1600 [facility] Last Admin: 04/28/18 05:37 Dose: 40 mg Spironolactone (Aldactone) 50 mg PO DAILY [facility] Stop: 05/25/18 10:01 Last Admin: 04/28/18 09:56 Dose: Not Given Vancomycin HCl (Vancocin 25 Mg/Ml (Oral Use)) 125 mg PO QID [facility]; Protocol Stop: 05/04/18 14:00 Last Admin: 04/28/18 14:26 Dose: 125 mg Vitamin B Complex/Vit C/Folic Acid (Nephro-Bhupinder) 1 tab PO 0800 [facility] Last Admin: 04/28/18 09:55 Dose: 1 tab Zolpidem Tartrate (Ambien) 5 mg PO HS [facility]; Protocol Last Admin: 04/27/18 21:19 Dose: 5 mg - Labs Labs: 04/28/18 06:30 04/28/18 06:30 PT 13.2 SECONDS (9.4-12.5) H 04/03/18 15:44 INR 1.15 04/03/18 15:44 APTT 30.7 Seconds (25.1-36.5) 04/03/18 15:44 Attending/Attestation - Attestation I have personally seen and examined this patient.: Yes I have fully participated in the care of the patient.: Yes I have reviewed all pertinent clinical information, including history, physical exam and plan: Yes Notes (Text): 04/28/18 15:09 Medical record note made by the resident after discussion with my direction and input after the patient was personally seen and examined by me. I have reviewed the chart and agree that the record accurately reflects by personal performance of the history, physical exam, data review, and medical decision-making, in the course for the patient. I have also personally directed the plan of care.
--- NOTE | 2018-04-25 14:51 | CP.PCM.PN ---
Subjective - Date & Time of Evaluation Date of Evaluation: 04/25/18 Time of Evaluation: 14:48 - Subjective Subjective: ID progress note PGY-[address] Thompson Pt was tearful and feeling deflated for no strength to stand. provided verbal comfort. no acute complaint Objective - Vital Signs/Intake and Output Vital Signs (last 24 hours): Temp Pulse Resp BP Pulse Ox 99 F 93 H 18 97/47 L 97 04/25/18 06:00 04/25/18 06:00 04/25/18 06:00 04/25/18 06:00 04/25/18 06:00 Intake and Output: 04/25/18 04/25/18 06:59 18:59 Intake Total 30 Balance 30 - Medications Medications: Current Medications Acetaminophen (Tylenol 325mg Tab) 650 mg PO Q6 PRN PRN Reason: Fever >100.4 F Last Admin: 04/13/18 05:56 Dose: 650 mg Albuterol/Ipratropium (Duoneb 3 Mg/0.5 Mg (3 Ml) Ud) 3 ml IH [id number] MAKAYLA Last Admin: 04/25/18 13:41 Dose: 3 ml Albuterol/Ipratropium (Duoneb 3 Mg/0.5 Mg (3 Ml) Ud) 3 ml IH Q2H PRN PRN Reason: Shortness of Breath Last Admin: 04/21/18 00:50 Dose: 3 ml Alprazolam (Xanax) 0.25 mg PO TID PRN; Protocol PRN Reason: Anxiety Last Admin: 04/24/18 16:08 Dose: 0.25 mg Benzonatate (Tessalon Perles) 100 mg PO TID PRN PRN Reason: Cough Last Admin: 04/23/18 16:12 Dose: 100 mg Darbepoetin Fletcher (Aranesp) 200 mcg IVP QWK [facility] Ergocalciferol (Drisdol 50,000 Intl Units Cap) 1 cap PO Q7D [facility] Last Admin: 04/22/18 17:07 Dose: 1 cap Heparin Sodium (Porcine) (Heparin) 5,000 units SC Q8 [facility]; Protocol Last Admin: 04/25/18 05:26 Dose: 5,000 units Heparin Sodium (Porcine) (Heparin) 2,[address] [facility]; Protocol Last Admin: 04/25/18 11:35 Dose: Not Given Iron Sucrose 100 mg/ Sodium (Chloride) 105 mls @ 210 mls/hr IVPB QWK [facility] Stop: 05/18/18 10:29 Last Admin: 04/20/18 13:06 Dose: 210 mls/hr Midodrine (Proamatine) [address] [facility] Last Admin: 04/25/18 08:01 Dose: 10 mg Multi-Ingredient Ointment (Hydrophor Oint) [address] [facility] Last Admin: 04/25/18 11:35 Dose: Not Given Nystatin (Nystop Topical Powder) [address] [facility] Last Admin: 04/25/18 11:35 Dose: Not Given Pantoprazole Sodium (Protonix Ec Tab) 40 mg PO 0600,1600 [facility] Last Admin: 04/25/18 05:28 Dose: 40 mg Spironolactone (Aldactone) [address] [facility] Last Admin: 04/25/18 11:35 Dose: Not Given Trazodone HCl (Desyrel) [address] [facility] Last Admin: 04/24/18 22:01 Dose: 100 mg Vancomycin HCl (Vancocin 25 Mg/Ml (Oral Use)) [address] [facility]; Protocol Stop: 05/04/18 14:00 Last Admin: 04/25/18 11:36 Dose: Not Given Vitamin B Complex/Vit C/Folic Acid (Nephro-Bhupinder) [address] [facility] Last Admin: 04/25/18 08:01 Dose: 1 tab - Labs Labs: 04/25/18 06:45 04/25/18 06:45 PT 13.2 SECONDS (9.4-12.5) H 04/03/18 15:44 INR 1.15 04/03/18 15:44 APTT 30.7 Seconds (25.1-36.5) 04/03/18 15:44 - Constitutional Appears: No Acute Distress - Head Exam Head Exam: ATRAUMATIC, NORMAL INSPECTION, NORMOCEPHALIC - Eye Exam Eye Exam: EOMI, Normal appearance, PERRL - ENT Exam ENT Exam: Mucous Membranes Moist - Neck Exam Additional comments: supple - Respiratory Exam Respiratory Exam: Clear to Ausculation Bilateral. absent: Rales, Rhonchi, Wheezes - Cardiovascular Exam Cardiovascular Exam: REGULAR RHYTHM, +S1, +S2. absent: Murmur - GI/Abdominal Exam GI & Abdominal Exam: Soft, Normal Bowel Sounds. absent: Guarding, Rigid, Tenderness - Extremities Exam Extremities Exam: Pedal Edema (pain chronic) - Back Exam Back Exam: absent: CVA tenderness (L), CVA tenderness (R) - Neurological Exam Neurological Exam: Alert, Awake, Oriented x3 - Psychiatric Exam Psychiatric exam: Normal Affect, Normal Mood - Skin Skin Exam: Dry, Warm Assessment and Plan - Assessment and Plan (Free Text) Plan: Ms Maguire, 52 yo F with PMHx ETOH abuse with liver failure, morbid obesity c/o worsening weakness and admitted for management of anemia and FELIPE with metabolic acidosis. A: C diff colitis Leukocytosis 13.6 S/P treatment of Influenza A infection S/P UTI with Klebsiella chronic lymphedema of lower extremities without evidence of cellulitis morbid obesity with BMI 52 Oligoanuric FELIPE with anasarca, new on dialysis via cath (03/2018, 1st session), HD MWF Dialysis catheter on chest Plan Vanco PO (day 05/27) trend Temp, WBC s/r/d/w Dr Thompson
--- NOTE | 2018-04-25 15:22 | CP.PCM.PN ---
Subjective - Date & Time of Evaluation Date of Evaluation: 04/25/18 Time of Evaluation: 15:21 - Subjective Subjective: Nephrology Consultation Note: Assessment: stable oligoanuric Acute Kidney Injury (N17.9) likely due to ATN, pre-renal state, intrasvasc hypovolemia, impaired renal perfusion, HD 04/05/18: first session anasarca severe symptomatic anemia due to GI bleed with gastric ulcers mild hyperkalemia and HAGMA, hyperphos hx of cirrhosis and etoh intra-ab lymphadenopathy morbid obesity acute influenza C diff colitis Plan HD tolerated well so far, on MWF schedule. 24 hr crcl: 6 and volme 200 mL. Maintain hemodynamics stable. Avoid hypotension. Patient not on ACEI/ARB due to recent FELIPE. added midodrine pre HD Monitor Input/Output, daily weights and renal function with basic metabolic panel added phos binders PRBC as needed. s/p 1 gram IV iron, now on weekly aranesp/IV iron GI consult, pt on PPI work up for FELIPE and anemia as ordered. GN work up neg hence will defer kidney biopsy. also pt with liver disease and morbidly obese. started weekly vit d consider further work up for ascites. started on aldactone 50 mg/d to reduce portal HTN Dose meds/antibiotics for reduced GFR. Avoid fleets enema/magnesium based laxatives. Avoid nephrotoxins/NSAIDs/ iodinated contrast (unless needed emergently) Glycemic control Further work up/management as per primary team she is arranged for outpt HD. Av access will be planned later as outpt if no renal recovery in 3 months Thanks for allowing me to participate in care of your patient. Will follow patient with you. Please call if any Qs. had d/w team Dr Kenji Salmeron Office: [phone] Chief Complaint; fatigue Reason for consult: Acute Kidney Injury HPI: Pt is a 52 F with hx of alcoholism in past, cirrhosis (pt states got better on its own in past) but no regular follow up with PMD presented with complaints of fatigue and tiredness for last few days, found to have severe anemia and FELIPE Denies OTC/herbal meds but NSAIDs as alleve for last few days No recent iodinated contrast exposure. Noted obvious episodes of low BP. reports chronic leg swelling but more now denies smoking or etoh now ROS: c/o swelling in leg. had gastric ulcers on EGD Cardiovascular: No chest pain. Pulmonary: improved shortness of breath but with cough Gastrointestinal: denies abdominal pain No nausea. No vomiting. had loose stool multiple episodes, slight better Genitourinary: No pain while urinating. Denies blood in urine. not much UOP All other negative except as mentioned in HPI feels sad that she is still bedbound Physical Examination: General Appearance: Comfortable, in no acute respiratory distress, co-operative . morbid obese Vitals reviewed and noted as below Head; Atraumatic, normocephalic ENT: no ulcers no thrush. Tongue is midline. Oropharynx: no rash or ulcers. EYES: Pupils are equal, round and reactive to light accommodation. Eye muscles and extraocular movement intact. Sclera is anicteric. Neck; supple no lymphadenopathy, no thyromegaly or bruit Lungs: Normal respiratory rate/effort. Breath sounds bilateral clear Heart: Normal rate. s1s2 normal. No rub or gallop. Extremities: 2-3+ edema. Neurological: Patient is alert, awake and oriented to person, place and time. No focal deficit. Strength bilateral appropriate and equal Skin: Warm and dry. Normal turgor. spider angioma rash upper chest. Palpitation: Normal elasticity for age Abdomen: Abdomen is soft. Bowel sounds +. There is no abdominal tenderness, no guarding/rigidity no organomegaly. limited due to obesity and abd wall edema Psych: normal insight and normal affect/mood MSK: no joint tenderness or swelling. Digits and nails normal, no deformity : kidney or bladder not palpable. has access as permacath Labs/imaging reviewed. Past medical history, past surgical history, family history, social history, allergy reviewed and noted as below Family hx: no hx of CKD. Rest non-contributory fena 0.3% intra-ab lymphadenopathy Objective - Vital Signs/Intake and Output Vital Signs (last 24 hours): Temp Pulse Resp BP Pulse Ox 99 F 93 H 18 97/47 L 97 04/25/18 06:00 04/25/18 06:00 04/25/18 06:00 04/25/18 06:00 04/25/18 06:00 Intake and Output: 04/25/18 04/25/18 06:59 18:59 Intake Total 30 Balance 30 - Medications Medications: Current Medications Acetaminophen (Tylenol 325mg Tab) 650 mg PO Q6 PRN PRN Reason: Fever >100.4 F Last Admin: 04/13/18 05:56 Dose: 650 mg Albuterol/Ipratropium (Duoneb 3 Mg/0.5 Mg (3 Ml) Ud) 3 ml IH [id number] [facility] Last Admin: 04/25/18 13:41 Dose: 3 ml Albuterol/Ipratropium (Duoneb 3 Mg/0.5 Mg (3 Ml) Ud) 3 ml IH Q2H PRN PRN Reason: Shortness of Breath Last Admin: 04/21/18 00:50 Dose: 3 ml Alprazolam (Xanax) 0.25 mg PO TID PRN; Protocol PRN Reason: Anxiety Last Admin: 04/24/18 16:08 Dose: 0.25 mg Benzonatate (Tessalon Perles) 100 mg PO TID PRN PRN Reason: Cough Last Admin: 04/23/18 16:12 Dose: 100 mg Darbepoetin Fletcher (Aranesp) 200 mcg IVP QWK [facility] Ergocalciferol (Drisdol 50,000 Intl Units Cap) 1 cap PO Q7D [facility] Last Admin: 04/22/18 17:07 Dose: 1 cap Heparin Sodium (Porcine) (Heparin) 5,000 units SC Q8 [facility]; Protocol Last Admin: 04/25/18 05:26 Dose: 5,000 units Heparin Sodium (Porcine) (Heparin) 2,000 units IVP MWF [facility]; Protocol Last Admin: 04/25/18 12:25 Dose: 2,000 units Iron Sucrose 100 mg/ Sodium (Chloride) 105 mls @ 210 mls/hr IVPB QWK [facility] Stop: 05/18/18 10:29 Last Admin: 04/20/18 13:06 Dose: 210 mls/hr Midodrine (Proamatine) 10 mg PO MWF [facility] Last Admin: 04/25/18 08:01 Dose: 10 mg Multi-Ingredient Ointment (Hydrophor Oint) 0 gm TOP Q12 [facility] Last Admin: 04/25/18 11:35 Dose: Not Given Nystatin (Nystop Topical Powder) 0 gm TOP BID [facility] Last Admin: 04/25/18 11:35 Dose: Not Given Pantoprazole Sodium (Protonix Ec Tab) 40 mg PO 0600,1600 [facility] Last Admin: 04/25/18 05:28 Dose: 40 mg Spironolactone (Aldactone) 50 mg PO DAILY [facility] Last Admin: 04/25/18 11:35 Dose: Not Given Trazodone HCl (Desyrel) 100 mg PO HS [facility] Last Admin: 04/24/18 22:01 Dose: 100 mg Vancomycin HCl (Vancocin 25 Mg/Ml (Oral Use)) 125 mg PO QID [facility]; Protocol Stop: 05/04/18 14:00 Last Admin: 04/25/18 11:36 Dose: Not Given Vitamin B Complex/Vit C/Folic Acid (Nephro-Bhupinder) 1 tab PO 0800 [facility] Last Admin: 04/25/18 08:01 Dose: 1 tab - Labs Labs: 04/25/18 06:45 04/25/18 06:45 PT 13.2 SECONDS (9.4-12.5) H 04/03/18 15:44 INR 1.15 04/03/18 15:44 APTT 30.7 Seconds (25.1-36.5) 04/03/18 15:44
--- NOTE | 2018-04-25 16:32 | PN ---
DATE: 04/25/2018 SUBJECTIVE: The patient is in bed in no acute distress. PHYSICAL EXAMINATION: VITAL SIGNS: Temperature is 100, blood pressure is 97/40, respiratory rate of 18. HEENT: Unremarkable. NECK: Supple. LUNGS: Have decreased breath sounds. HEART: Normal S1, S2. ABDOMEN: Soft. LABORATORY EXAMINATION: Reviewed. ASSESSMENT AND PLAN: This is a 52-year-old status post treatment for influenza A and urinary tract infection with Klebsiella, chronic lower extremity edema and pseudomembranous colitis, now on p.o. vancomycin day #2 of 10 days. Review of orders reveals the patient to be on p.o. vancomycin. We will follow with you. Orion Thompson MD
[2018-04-26] MEDS: Albuterol-Ipratrop 3 mg / 0.5 (3 ml) UD IH SCH ×4 (01:03→20:16)
[2018-04-26] MEDS: Pantoprazole 40 mg EC Tab PO SCH ×2 (05:47→16:43)
[2018-04-26 07:24] LABS: BASO # 0.05 K/mm3 (0.0-2.0); BASO % 0.4 % (0.0-3.0); EOS # 0.6 (0.0-0.7); EOS % 4.3 % (1.5-5.0); GRAN # 10.35 (1.4-6.5); GRAN % 74.5 % (50.0-68.0); LYMPH # 1.2 (1.2-3.4); LYMPH % 8.7 % (22.0-35.0); MEAN CELL VOLUME 89.5 fl (80.0-105.0); MEAN CORPUSCULAR HEMOGLOBIN 26.9 pg (25.0-35.0); MEAN CORPUSCULAR HGB CONC 30.1 g/dl (31.0-37.0); MEAN PLATELET VOLUME 8.6 fl (7.0-11.0); MONO # 1.7 (0.1-0.6); MONO % 12.1 % (1.0-6.0); RBC 3.34 10^6/uL (3.5-6.1); RED CELL DISTRIBUTION WIDTH 19.5 % (11.5-14.5); WHITE BLOOD COUNT 13.9 10^3/uL (4.5-11.0)
[2018-04-26 07:48] LABS: ALB/GLOB RATIO 0.6 (1.1-1.8); CALCIUM 7.7 mg/dL (8.4-10.5)
[2018-04-26] MEDS: Multivitamin Vitamin B Complex (Nephro-Vite) Tab PO SCH (08:27)
[2018-04-26] MEDS: Petrolatum-Mineral Oil Oint (100gm) TOP SCH ×2 (11:04→21:41)
[2018-04-26] MEDS: Vancomycin 25 MG/ML PO SCH ×4 (11:04→21:41)
[2018-04-26] MEDS: Nystatin 100,000 Units/gm Topical Pow(15 gm) TOP SCH ×2 (11:04→17:53)
[2018-04-26] MEDS: Potassium Chloride 20 mEq ER Tab PO SCH ×2 (12:39→17:53)
--- NOTE | 2018-04-26 13:39 | CP.PCM.PN ---
<Nhung Anne - Last Filed: 04/26/18 13:34> Subjective - Date & Time of Evaluation Date of Evaluation: 04/26/18 Time of Evaluation: 11:20 - Subjective Subjective: Nhung Anne PGY1 Hospital Progress Note Patient seen and examined at bedside today. Admits to 3 episodes of watery diarrhea yesterday, but denies any diarrhea today. Offers no complaints today. Will order blood work every other day. Objective - Vital Signs/Intake and Output Vital Signs (last 24 hours): Temp Pulse Resp BP Pulse Ox 98.4 F 98 H 20 99/86 L 99 04/26/18 06:00 04/26/18 06:00 04/26/18 06:00 04/26/18 06:00 04/26/18 06:00 - Medications Medications: Current Medications Acetaminophen (Tylenol 325mg Tab) 650 mg PO Q6 PRN PRN Reason: Fever >100.4 F Last Admin: 04/13/18 05:56 Dose: 650 mg Albuterol/Ipratropium (Duoneb 3 Mg/0.5 Mg (3 Ml) Ud) 3 ml IH [id number] [facility] Last Admin: 04/26/18 13:22 Dose: 3 ml Albuterol/Ipratropium (Duoneb 3 Mg/0.5 Mg (3 Ml) Ud) 3 ml IH Q2H PRN PRN Reason: Shortness of Breath Last Admin: 04/21/18 00:50 Dose: 3 ml Alprazolam (Xanax) 0.25 mg PO TID PRN; Protocol PRN Reason: Anxiety Last Admin: 04/26/18 02:59 Dose: 0.25 mg Benzonatate (Tessalon Perles) 100 mg PO TID PRN PRN Reason: Cough Last Admin: 04/25/18 15:43 Dose: 100 mg Darbepoetin Fletcher (Aranesp) 200 mcg IVP QWK [facility] Ergocalciferol (Drisdol 50,000 Intl Units Cap) 1 cap PO Q7D [facility] Last Admin: 04/22/18 17:07 Dose: 1 cap Fluoxetine HCl (Prozac) 10 mg PO DAILY [facility] Last Admin: 04/26/18 12:39 Dose: 10 mg Heparin Sodium (Porcine) (Heparin) 5,000 units SC Q8 [facility]; Protocol Last Admin: 04/26/18 05:45 Dose: 5,000 units Heparin Sodium (Porcine) (Heparin) 2,000 units IVP F [facility]; Protocol Last Admin: 04/25/18 12:25 Dose: 2,000 units Iron Sucrose 100 mg/ Sodium (Chloride) 105 mls @ 210 mls/hr IVPB QWK [facility] Stop: 05/18/18 10:29 Last Admin: 04/20/18 13:06 Dose: 210 mls/hr Midodrine (Proamatine) 10 mg PO MWF [facility] Last Admin: 04/25/18 08:01 Dose: 10 mg Multi-Ingredient Ointment (Hydrophor Oint) 0 gm TOP Q12 [facility] Last Admin: 04/26/18 11:04 Dose: 1 appl Nystatin (Nystop Topical Powder) 0 gm TOP BID [facility] Last Admin: 04/26/18 11:04 Dose: 1 appl Pantoprazole Sodium (Protonix Ec Tab) 40 mg PO 0600,1600 [facility] Last Admin: 04/26/18 05:47 Dose: 40 mg Potassium Chloride (K-Dur 20 Meq Er Tab) 20 meq PO BID [facility] Stop: 04/26/18 18:01 Last Admin: 04/26/18 12:39 Dose: 20 meq Spironolactone (Aldactone) 50 mg PO DAILY [facility] Stop: 05/25/18 10:01 Last Admin: 04/26/18 11:05 Dose: 50 mg Vancomycin HCl (Vancocin 25 Mg/Ml (Oral Use)) 125 mg PO QID [facility]; Protocol Stop: 05/04/18 14:00 Last Admin: 04/26/18 11:04 Dose: 125 mg Vitamin B Complex/Vit C/Folic Acid (Nephro-Bhupinder) 1 tab PO 0800 [facility] Last Admin: 04/26/18 08:27 Dose: 1 tab Zolpidem Tartrate (Ambien) 5 mg PO HS [facility]; Protocol - Labs Labs: 04/26/18 06:45 04/26/18 06:45 PT 13.2 SECONDS (9.4-12.5) H 04/03/18 15:44 INR 1.15 04/03/18 15:44 APTT 30.7 Seconds (25.1-36.5) 04/03/18 15:44 - Additional Findings Additional findings: - Constitutional Appears: No Acute Distress - Head Exam Head Exam: NORMAL INSPECTION, ATRAUMATIC - Eye Exam Eye Exam: EOMI, PERRL - ENT Exam ENT Exam: Mucous Membranes Moist, Normal Exam - Neck Exam Neck exam: Positive for: Normal Inspection - Respiratory Exam Respiratory Exam: Clear to Auscultation Bilateral. absent: Rales, Rhonchi, Wheezes, respiratory distress - Cardiovascular Exam Cardiovascular Exam: Regular rhythm, +S1, +S2. absent: Systolic Murmur - GI/Abdominal Exam GI & Abdominal Exam: Soft. Bowel sounds heard in all 4 quadrants absent: Distended, Guarding, Rebound, Tenderness - Extremities Exam Extremities exam: Positive for: pedal edema Additional comments: Assessment and Plan - Assessment and Plan (Free Text) Assessment: Patient is a 52 yo F with past medical history liver failure, morbid obesity, and EtOH abuse presents to [facility] for worsening weakness and admitted for management of anemia and FELIPE with metabolic acidosis. Focusing on outpatient HD placement and PT at this time. Psych put on consult for depressed mood. Plan: C. Diff -cdiff antigen and toxin positive -PO vancomycine day 3 out of 10 -admits to 3 episodes of watery diarrhea yesterday, abdominal discomfort improved today -mild leukocytosis 13.9 likely 2/2 c diff infection, afebrile -contact precautions Acute renal failure - improved -on HD MWF -Working with machine adjuster leader case trim for outpatient HD setup, working on placement -will get blood work every other day -Renal US is unremarkable -Renagel 800 mg PO TID -Strict I's and O's -Nephrology on consult, Dr. Salmeron Chronic lymphedema of B/L legs -podiatry on consult, no further recommendations, local wound care for now - not currently draining/weeping -repeat ext US shows possible right SFA occlusive disease, limited study due to artifact -wound culture grew Enterobacter Cloacae, E. faecalis - superficial bacteria colonizers -PT recommends JENNA -daily PT rehab Microcytic anemia -s/p total 11 units pRBCs, 2 FFPs -oral iron started -endoscopy showed 3 non bleeding gastric ulcers, largest one 8mm -iron studies shows likely iron deficiency -Head CT unremarkable -CTAP shows adenopathy of the hepatic gastric ligament -GI on consult, Dr. Melo Fever - resolved -afebrile, no WBC -positive flu type A, completed course of tamiflu -completed course of merrem for UTI with klebsiella -CXR showed moderate cardiomegaly, vascular congestion -blood culture shows no growth after 5 days -procalcitonin mildly elevated Elevated BNP -BNP 35296 on admission -Echo showed EF of 68%, mild TR/MR, mild pulm HTN, borderline LVH Depression -Psych on consult, Dr. Ramos -continue trazodone PPX/Diet -protonix, heparin -renal diet Patient seen and case discussed with attending, Dr. Ojeda <Sagrario Ojeda - Last Filed: 04/28/18 15:09> Objective - Vital Signs/Intake and Output Vital Signs (last 24 hours): Temp Pulse Resp BP Pulse Ox 98.2 F 88 16 99/46 L 100 04/27/18 22:00 04/27/18 22:00 04/27/18 22:00 04/27/18 22:00 04/27/18 22:00 - Medications Medications: Current Medications Acetaminophen (Tylenol 325mg Tab) 650 mg PO Q6 PRN PRN Reason: Fever >100.4 F Last Admin: 04/13/18 05:56 Dose: 650 mg Albuterol/Ipratropium (Duoneb 3 Mg/0.5 Mg (3 Ml) Ud) 3 ml IH [id number] Last Admin: 04/28/18 13:29 Dose: 3 ml Albuterol/Ipratropium (Duoneb 3 Mg/0.5 Mg (3 Ml) Ud) 3 ml IH Q2H PRN PRN Reason: Shortness of Breath Last Admin: 04/21/18 00:50 Dose: 3 ml Alprazolam (Xanax) 0.25 mg PO TID PRN; Protocol PRN Reason: Anxiety Last Admin: 04/27/18 17:13 Dose: 0.25 mg Benzonatate (Tessalon Perles) 100 mg PO TID PRN PRN Reason: Cough Last Admin: 04/25/18 15:43 Dose: 100 mg Darbepoetin Fletcher (Aranesp) 200 mcg IVP QWK [facility] Ergocalciferol (Drisdol 50,000 Intl Units Cap) 1 cap PO Q7D [facility] Last Admin: 04/22/18 17:07 Dose: 1 cap Fluoxetine HCl (Prozac) 10 mg PO DAILY [facility] Last Admin: 04/28/18 09:56 Dose: 10 mg Heparin Sodium (Porcine) (Heparin) 5,000 units SC Q8 [facility]; Protocol Last Admin: 04/28/18 14:25 Dose: 5,000 units Heparin Sodium (Porcine) (Heparin) 2,000 units IVP MWF [facility]; Protocol Last Admin: 04/25/18 12:25 Dose: 2,000 units Iron Sucrose 100 mg/ Sodium (Chloride) 105 mls @ 210 mls/hr IVPB QWK [facility] Stop: 05/18/18 10:29 Last Admin: 04/27/18 11:13 Dose: 210 mls/hr Midodrine (Proamatine) 10 mg PO MWF [facility] Last Admin: 04/27/18 12:14 Dose: 10 mg Multi-Ingredient Ointment (Hydrophor Oint) 0 gm TOP Q12 [facility] Last Admin: 04/28/18 11:00 Dose: Not Given Nystatin (Nystop Topical Powder) 0 gm TOP BID [facility] Last Admin: 04/28/18 11:00 Dose: Not Given Pantoprazole Sodium (Protonix Ec Tab) 40 mg PO 0600,1600 [facility] Last Admin: 04/28/18 05:37 Dose: 40 mg Spironolactone (Aldactone) 50 mg PO DAILY [facility] Stop: 05/25/18 10:01 Last Admin: 04/28/18 09:56 Dose: Not Given Vancomycin HCl (Vancocin 25 Mg/Ml (Oral Use)) 125 mg PO QID [facility]; Protocol Stop: 05/04/18 14:00 Last Admin: 04/28/18 14:26 Dose: 125 mg Vitamin B Complex/Vit C/Folic Acid (Nephro-Bhupinder) 1 tab PO 0800 [facility] Last Admin: 04/28/18 09:55 Dose: 1 tab Zolpidem Tartrate (Ambien) 5 mg PO HS [facility]; Protocol Last Admin: 04/27/18 21:19 Dose: 5 mg - Labs Labs: 04/28/18 06:30 04/28/18 06:30 PT 13.2 SECONDS (9.4-12.5) H 04/03/18 15:44 INR 1.15 04/03/18 15:44 APTT 30.7 Seconds (25.1-36.5) 04/03/18 15:44 Attending/Attestation - Attestation I have personally seen and examined this patient.: Yes I have fully participated in the care of the patient.: Yes I have reviewed all pertinent clinical information, including history, physical exam and plan: Yes Notes (Text): 04/28/18 15:09 Medical record note made by the resident after discussion with my direction and input after the patient was personally seen and examined by me. I have reviewed the chart and agree that the record accurately reflects by personal performance of the history, physical exam, data review, and medical decision-making, in the course for the patient. I have also personally directed the plan of care.
--- NOTE | 2018-04-26 14:39 | CP.PCM.PN ---
Subjective - Date & Time of Evaluation Date of Evaluation: 04/26/18 Time of Evaluation: 14:38 - Subjective Subjective: Nephrology Consultation Note: Assessment: stable oligoanuric Acute Kidney Injury (N17.9) likely due to ATN, pre-renal state, intrasvasc hypovolemia, impaired renal perfusion, HD 04/05/18: first session anasarca severe symptomatic anemia due to GI bleed with gastric ulcers mild hyperkalemia and HAGMA, hyperphos hx of cirrhosis and etoh intra-ab lymphadenopathy morbid obesity acute influenza C diff colitis Plan HD tolerated well so far, on MWF schedule. 24 hr crcl: 6 and volume 200 mL. Maintain hemodynamics stable. Avoid hypotension. Patient not on ACEI/ARB due to recent FELIPE. added midodrine pre HD Monitor Input/Output, daily weights and renal function with basic metabolic panel held phos binders due to diarrhoea PRBC as needed. s/p 1 gram IV iron, now on weekly aranesp/IV iron GI consult, pt on PPI work up for FELIPE and anemia as ordered. GN work up neg hence will defer kidney biopsy. also pt with liver disease and morbidly obese. started weekly vit d consider further work up for ascites. started on aldactone 50 mg/d to reduce portal HTN Dose meds/antibiotics for reduced GFR. Avoid fleets enema/magnesium based laxat harsha. Avoid nephrotoxins/NSAIDs/ iodinated contrast (unless needed emergently) Glycemic control Further work up/management as per primary team she is arranged for outpt HD. Av access will be planned later as outpt if no renal recovery in 3 months Thanks for allowing me to participate in care of your patient. Will follow patient with you. Please call if any Qs. had d/w team Dr Kenji Salmeron Office: [phone] Chief Complaint; fatigue Reason for consult: Acute Kidney Injury HPI: Pt is a 52 F with hx of alcoholism in past, cirrhosis (pt states got better on its own in past) but no regular follow up with PMD presented with complaints of fatigue and tiredness for last few days, found to have severe anemia and FELIPE Denies OTC/herbal meds but NSAIDs as alleve for last few days No recent iodinated contrast exposure. Noted obvious episodes of low BP. reports chronic leg swelling but more now denies smoking or etoh now ROS: c/o swelling in leg. had gastric ulcers on EGD Cardiovascular: No chest pain. Pulmonary: improved shortness of breath but with cough Gastrointestinal: denies abdominal pain No nausea. No vomiting. had loose stool multiple episodes, but better Genitourinary: not much UOP All other negative except as mentioned in HPI feels sad that she is still bedbound Physical Examination: General Appearance: Comfortable, in no acute respiratory distress, co-operative . morbid obese Vitals reviewed and noted as below Head; Atraumatic, normocephalic ENT: no ulcers no thrush. Tongue is midline. Oropharynx: no rash or ulcers. EYES: Pupils are equal, round and reactive to light accommodation. Eye muscles and extraocular movement intact. Sclera is anicteric. Neck; supple no lymphadenopathy, no thyromegaly or bruit Lungs: Normal respiratory rate/effort. Breath sounds bilateral clear Heart: Normal rate. s1s2 normal. No rub or gallop. Extremities: 2-3+ edema. Neurological: Patient is alert, awake and oriented to person, place and time. No focal deficit. Strength bilateral appropriate and equal Skin: Warm and dry. Normal turgor. spider angioma rash upper chest. Palpitation: Normal elasticity for age Abdomen: Abdomen is soft. Bowel sounds +. There is no abdominal tenderness, no guarding/rigidity no organomegaly. limited due to obesity and abd wall edema Psych: normal insight and flat affect/mood MSK: no joint tenderness or swelling. Digits and nails normal, no deformity : kidney or bladder not palpable. has access as permacath Labs/imaging reviewed. Past medical history, past surgical history, family history, social history, allergy reviewed and noted as below Family hx: no hx of CKD. Rest non-contributory fena 0.3% intra-ab lymphadenopathy Objective - Vital Signs/Intake and Output Vital Signs (last 24 hours): Temp Pulse Resp BP Pulse Ox 98.4 F 98 H 20 99/86 L 99 04/26/18 06:00 04/26/18 06:00 04/26/18 06:00 04/26/18 06:00 04/26/18 06:00 - Medications Medications: Current Medications Acetaminophen (Tylenol 325mg Tab) 650 mg PO Q6 PRN PRN Reason: Fever >100.4 F Last Admin: 04/13/18 05:56 Dose: 650 mg Albuterol/Ipratropium (Duoneb 3 Mg/0.5 Mg (3 Ml) Ud) 3 ml IH [id number] [facility] Last Admin: 04/26/18 13:22 Dose: 3 ml Albuterol/Ipratropium (Duoneb 3 Mg/0.5 Mg (3 Ml) Ud) 3 ml IH Q2H PRN PRN Reason: Shortness of Breath Last Admin: 04/21/18 00:50 Dose: 3 ml Alprazolam (Xanax) 0.25 mg PO TID PRN; Protocol PRN Reason: Anxiety Last Admin: 04/26/18 02:59 Dose: 0.25 mg Benzonatate (Tessalon Perles) 100 mg PO TID PRN PRN Reason: Cough Last Admin: 04/25/18 15:43 Dose: 100 mg Darbepoetin Fletcher (Aranesp) 200 mcg IVP QWK [facility] Ergocalciferol (Drisdol 50,000 Intl Units Cap) 1 cap PO Q7D [facility] Last Admin: 04/22/18 17:07 Dose: 1 cap Fluoxetine HCl (Prozac) 10 mg PO DAILY [facility] Last Admin: 04/26/18 12:39 Dose: 10 mg Heparin Sodium (Porcine) (Heparin) 5,000 units SC Q8 [facility]; Protocol Last Admin: 04/26/18 13:33 Dose: 5,000 units Heparin Sodium (Porcine) (Heparin) 2,000 units IVP MWF [facility]; Protocol Last Admin: 04/25/18 12:25 Dose: 2,000 units Iron Sucrose 100 mg/ Sodium (Chloride) 105 mls @ 210 mls/hr IVPB QWK [facility] Stop: 05/18/18 10:29 Last Admin: 04/20/18 13:06 Dose: 210 mls/hr Midodrine (Proamatine) 10 mg PO MWF [facility] Last Admin: 04/25/18 08:01 Dose: 10 mg Multi-Ingredient Ointment (Hydrophor Oint) 0 gm TOP Q12 [facility] Last Admin: 04/26/18 11:04 Dose: 1 appl Nystatin (Nystop Topical Powder) 0 gm TOP BID [facility] Last Admin: 04/26/18 11:04 Dose: 1 appl Pantoprazole Sodium (Protonix Ec Tab) 40 mg PO 0600,1600 [facility] Last Admin: 04/26/18 05:47 Dose: 40 mg Potassium Chloride (K-Dur 20 Meq Er Tab) 20 meq PO BID [facility] Stop: 04/26/18 18:01 Last Admin: 04/26/18 12:39 Dose: 20 meq Spironolactone (Aldactone) 50 mg PO DAILY [facility] Stop: 05/25/18 10:01 Last Admin: 04/26/18 11:05 Dose: 50 mg Vancomycin HCl (Vancocin 25 Mg/Ml (Oral Use)) 125 mg PO QID [facility]; Protocol Stop: 05/04/18 14:00 Last Admin: 04/26/18 13:33 Dose: 125 mg Vitamin B Complex/Vit C/Folic Acid (Nephro-Bhupinder) 1 tab PO 0800 [facility] Last Admin: 04/26/18 08:27 Dose: 1 tab Zolpidem Tartrate (Ambien) 5 mg PO HS [facility]; Protocol - Labs Labs: 04/26/18 06:45 04/26/18 06:45 PT 13.2 SECONDS (9.4-12.5) H 04/03/18 15:44 INR 1.15 04/03/18 15:44 APTT 30.7 Seconds (25.1-36.5) 04/03/18 15:44
--- NOTE | 2018-04-26 17:33 | PN ---
DATE: 04/26/2018 SUBJECTIVE: The patient is in bed in no acute distress, nontoxic. PHYSICAL EXAMINATION: VITAL SIGNS: Temperature is 99, blood pressure is 100/60, respiratory 20. HEENT: Unremarkable. NECK: Supple. LUNGS: Have decreased breath sounds. HEART: Normal S1, S2. ABDOMEN: Soft. LABORATORY DATA: Laboratory examination reveals a white count of 13,000. Chemistries are noted and urine is noted and toxicology is noted. The patient is on p.o. vancomycin. ASSESSMENT AND PLAN: This is a 52-year-old, status post treatment for influenza and Klebsiella urinary tract infection, chronic lower extremity edema, now has pseudomembranous colitis, on day #3 of p.o. vancomycin, would complete 10 days of p.o. vancomycin and follow the WBCs. Orion Thompson MD
--- NOTE | 2018-04-26 21:09 | PN ---
DATE: 04/26/2018 SUBJECTIVE: Marybel is a 52-year-old female, multiple medical issues. The patient was seen by this service writer for depressive symptoms. This service writer signed off because the patient was doing better. Medical team consulted this service writer because the patient presented more depressed and the patient was making hopeless statements. This service writer is very familiar with this patient from the prior hospitalization to [facility]. The patient was admitted on medical site on . Since that time, patient was diagnosed with multiple medical issues. The patient right now is on hemodialysis due to chronic lymphedema and microcytic anemia. The patient had elevated BNP. The patient is morbidly obese as well. The patient was seen today. The patient presented to be withdrawn, apathetic, the patient was making hopeless statements such as "I wish never been born". The patient adamantly denied any thoughts of harming herself, but the patient feels hopeless about her medical condition. Emotional support and empathic listening was provided. This service writer will adjust medications. Xanax will be the same. Trazodone will be discontinued. Ambien started. This service writer will implement Prozac. Risks, benefits and alternatives discussed with the patient. The patient was given some assignment for CBT. Meanwhile, the patient did not want to participate in interview that much. OBJECTIVE: VITAL SIGNS: Stable. Temperature 98, pulse 91, blood pressure 99/48, respiration 20 and saturation is 94. MEDICATIONS REVIEWED: Tylenol, DuoNeb, Xanax, Prozac 10 mg daily, heparin, ProAmatine, nystatin, K-Dur, Aldactone, vancomycin, Ambien was started at the nighttime. LABORATORY DATA: Reviewed. The patient has leukocytosis. Coagulation reviewed. Chemistry reviewed. Urinalysis reviewed. Toxicology reviewed. Serology reviewed. Microbiology reviewed. MENTAL STATUS: The patient presented to be withdrawn, apathetic, depressed. Mood described as "I wish never been born because I am suffering so much". Thought process seems to be coherent and goal directed. Thought content, the patient denied visual, auditory, tactile hallucinations. Denied paranoid ideation. The patient denied thoughts of harming herself or others, but the patient expressed wish to be . Insight and judgment limited. Impulses are well controlled. IMPRESSION: Rule out major depressive disorder, rule out mood disorder due to general medical condition, rule out adjustment disorder with depressed and anxious mood. PLAN: Prozac started. Trazodone discontinued. Ambien started. Xanax will be continued. We will follow up. We will provide CBT as well as empathic listening and supportive therapy. Thank you very much for letting me participate in care of your patient. Should you have any questions give me a call back. Rachel Maradiaga MD
[2018-04-27] MEDS: Albuterol-Ipratrop 3 mg / 0.5 (3 ml) UD IH SCH ×4 (01:25→19:53)
[2018-04-27] MEDS: Pantoprazole 40 mg EC Tab PO SCH ×2 (05:53→16:39)
[2018-04-27] MEDS: Multivitamin Vitamin B Complex (Nephro-Vite) Tab PO SCH (08:34)
[2018-04-27] MEDS: Vancomycin 25 MG/ML PO SCH ×4 (11:05→21:18)
[2018-04-27] MEDS: Nystatin 100,000 Units/gm Topical Pow(15 gm) TOP SCH ×2 (11:08→18:27)
[2018-04-27] MEDS: Petrolatum-Mineral Oil Oint (100gm) TOP SCH ×2 (11:08→21:18)
--- NOTE | 2018-04-27 12:06 | CP.PCM.PN ---
<Nhung Anne - Last Filed: 04/27/18 12:02> Subjective - Date & Time of Evaluation Date of Evaluation: 04/27/18 Time of Evaluation: 10:45 - Subjective Subjective: Nhung Anne Y1 Hospital Progress Note Patient seen and examined at bedside this morning. Admits to one episode of this morning. Abdominal pain is resolved. Mood is better today. Offers no complaints today. Objective - Vital Signs/Intake and Output Vital Signs (last 24 hours): Temp Pulse Resp BP Pulse Ox 98.4 F 85 20 100/54 L 97 04/27/18 06:00 04/27/18 06:00 04/27/18 06:00 04/27/18 06:00 04/27/18 06:00 Intake and Output: 04/27/18 04/27/18 06:59 18:59 Intake Total 300 Balance 300 - Medications Medications: Current Medications Acetaminophen (Tylenol 325mg Tab) 650 mg PO Q6 PRN PRN Reason: Fever >100.4 F Last Admin: 04/13/18 05:56 Dose: 650 mg Albuterol/Ipratropium (Duoneb 3 Mg/0.5 Mg (3 Ml) Ud) 3 ml IH [id number] [facility] Last Admin: 04/27/18 07:23 Dose: Not Given Albuterol/Ipratropium (Duoneb 3 Mg/0.5 Mg (3 Ml) Ud) 3 ml IH Q2H PRN PRN Reason: Shortness of Breath Last Admin: 04/21/18 00:50 Dose: 3 ml Alprazolam (Xanax) 0.25 mg PO TID PRN; Protocol PRN Reason: Anxiety Last Admin: 04/27/18 00:18 Dose: 0.25 mg Benzonatate (Tessalon Perles) 100 mg PO TID PRN PRN Reason: Cough Last Admin: 04/25/18 15:43 Dose: 100 mg Darbepoetin Fletcher (Aranesp) 200 mcg IVP QWK [facility] Ergocalciferol (Drisdol 50,000 Intl Units Cap) 1 cap PO Q7D [facility] Last Admin: 04/22/18 17:07 Dose: 1 cap Fluoxetine HCl (Prozac) 10 mg PO DAILY [facility] Last Admin: 04/27/18 11:05 Dose: 10 mg Heparin Sodium (Porcine) (Heparin) 5,000 units SC Q8 [facility]; Protocol Last Admin: 04/27/18 05:53 Dose: 5,000 units Heparin Sodium (Porcine) (Heparin) 2,000 units IVP [facility]; Protocol Last Admin: 04/25/18 12:25 Dose: 2,000 units Iron Sucrose 100 mg/ Sodium (Chloride) 105 mls @ 210 mls/hr IVPB QWK [facility] Stop: 05/18/18 10:29 Last Admin: 04/27/18 11:13 Dose: 210 mls/hr Midodrine (Proamatine) 10 mg PO MWF [facility] Last Admin: 04/25/18 08:01 Dose: 10 mg Multi-Ingredient Ointment (Hydrophor Oint) 0 gm TOP Q12 [facility] Last Admin: 04/27/18 11:08 Dose: 1 appl Nystatin (Nystop Topical Powder) 0 gm TOP BID [facility] Last Admin: 04/27/18 11:08 Dose: 1 appl Pantoprazole Sodium (Protonix Ec Tab) 40 mg PO 0600,1600 [facility] Last Admin: 04/27/18 05:53 Dose: 40 mg Spironolactone (Aldactone) 50 mg PO DAILY [facility] Stop: 05/25/18 10:01 Last Admin: 04/27/18 11:11 Dose: 50 mg Vancomycin HCl (Vancocin 25 Mg/Ml (Oral Use)) 125 mg PO QID [facility]; Protocol Stop: 05/04/18 14:00 Last Admin: 04/27/18 11:05 Dose: 125 mg Vitamin B Complex/Vit C/Folic Acid (Nephro-Bhupinder) 1 tab PO 0800 [facility] Last Admin: 04/27/18 08:34 Dose: 1 tab Zolpidem Tartrate (Ambien) 5 mg PO HS [facility]; Protocol Last Admin: 04/26/18 21:42 Dose: 5 mg - Labs Labs: 04/26/18 06:45 04/26/18 06:45 PT 13.2 SECONDS (9.4-12.5) H 04/03/18 15:44 INR 1.15 04/03/18 15:44 APTT 30.7 Seconds (25.1-36.5) 04/03/18 15:44 - Additional Findings Additional findings: - Constitutional Appears: No Acute Distress - Head Exam Head Exam: NORMAL INSPECTION, ATRAUMATIC - Eye Exam Eye Exam: EOMI, PERRL - ENT Exam ENT Exam: Mucous Membranes Moist, Normal Exam - Neck Exam Neck exam: Positive for: Normal Inspection - Respiratory Exam Respiratory Exam: Clear to Auscultation Bilateral. absent: Rales, Rhonchi, Wheezes, respiratory distress - Cardiovascular Exam Cardiovascular Exam: Regular rhythm, +S1, +S2. absent: Systolic Murmur - GI/Abdominal Exam GI & Abdominal Exam: Soft. Bowel sounds heard in all 4 quadrants absent: Distended, Guarding, Rebound, Tenderness - Extremities Exam Extremities exam: Positive for: pedal edema Additional comments: Skin Exam Skin exam: stage 2 ulcer on the right thigh, non draining/bleeding/pus Assessment and Plan - Assessment and Plan (Free Text) Assessment: Patient is a 52 yo F with past medical history liver failure, morbid obesity, and EtOH abuse presents to [facility] [place] for worsening weakness and admitted for management of anemia and FELIPE with metabolic acidosis. Focusing on outpatient HD placement and PT at this time. Psych put on consult for depressed mood. Plan: C. Diff -cdiff antigen and toxin positive -PO vancomycine day 4 out of 10 -admits to 1 episode of diarrhea this morning, denies abdominal pain -mild leukocytosis 13.9 yesterday likely 2/2 c diff infection, afebrile -contact precautions Depression -Psych on consult, Dr. Ramos -started on xanax prn, prozac and ambien Acute renal failure - improved -on HD MWF, HD today -Working with manager of case management for outpatient HD setup, working on placement -will get blood work every other day -Renal US is unremarkable -Renagel 800 mg PO TID -Strict I's and O's -Nephrology on consult, Dr. Salmeron Chronic lymphedema of B/L legs -podiatry on consult, no further recommendations, local wound care for now - not currently draining/weeping -repeat ext US shows possible right SFA occlusive disease, limited study due to artifact -wound culture grew Enterobacter Cloacae, E. faecalis - superficial bacteria colonizers -PT recommends JENNA -daily PT rehab Microcytic anemia -s/p total 11 units pRBCs, 2 FFPs -oral iron started -endoscopy showed 3 non bleeding gastric ulcers, largest one 8mm -iron studies shows likely iron deficiency -Head CT unremarkable -CTAP shows adenopathy of the hepatic gastric ligament -GI on consult, Dr. Melo Fever - resolved -afebrile, no WBC -positive flu type A, completed course of tamiflu -completed course of merrem for UTI with klebsiella -CXR showed moderate cardiomegaly, vascular congestion -blood culture shows no growth after 5 days Elevated BNP -BNP 28172 on admission -Echo showed EF of 68%, mild TR/MR, mild pulm HTN, borderline LVH PPX/Diet -protonix, heparin -renal, fiber diet Patient seen and case discussed with attending, Dr. Ojeda <Sagrario Ojeda - Last Filed: 04/28/18 15:08> Objective - Vital Signs/Intake and Output Vital Signs (last 24 hours): Temp Pulse Resp BP Pulse Ox 98.2 F 88 16 99/46 L 100 04/27/18 22:00 04/27/18 22:00 04/27/18 22:00 04/27/18 22:00 04/27/18 22:00 - Medications Medications: Current Medications Acetaminophen (Tylenol 325mg Tab) 650 mg PO Q6 PRN PRN Reason: Fever >100.4 F Last Admin: 04/13/18 05:56 Dose: 650 mg Albuterol/Ipratropium (Duoneb 3 Mg/0.5 Mg (3 Ml) Ud) 3 ml IH [id number] [facility] Last Admin: 04/28/18 13:29 Dose: 3 ml Albuterol/Ipratropium (Duoneb 3 Mg/0.5 Mg (3 Ml) Ud) 3 ml IH Q2H PRN PRN Reason: Shortness of Breath Last Admin: 04/21/18 00:50 Dose: 3 ml Alprazolam (Xanax) 0.25 mg PO TID PRN; Protocol PRN Reason: Anxiety Last Admin: 04/27/18 17:13 Dose: 0.25 mg Benzonatate (Tessalon Perles) 100 mg PO TID PRN PRN Reason: Cough Last Admin: 04/25/18 15:43 Dose: 100 mg Darbepoetin Fletcher (Aranesp) 200 mcg IVP QWK [facility] Ergocalciferol (Drisdol 50,000 Intl Units Cap) 1 cap PO Q7D [facility] Last Admin: 04/22/18 17:07 Dose: 1 cap Fluoxetine HCl (Prozac) 10 mg PO DAILY [facility] Last Admin: 04/28/18 09:56 Dose: 10 mg Heparin Sodium (Porcine) (Heparin) 5,000 units SC Q8 [facility]; Protocol Last Admin: 04/28/18 14:25 Dose: 5,000 units Heparin Sodium (Porcine) (Heparin) 2,000 units IVP MWF [facility]; Protocol Last Admin: 04/25/18 12:25 Dose: 2,000 units Iron Sucrose 100 mg/ Sodium (Chloride) 105 mls @ 210 mls/hr IVPB QWK [facility] Stop: 05/18/18 10:29 Last Admin: 04/27/18 11:13 Dose: 210 mls/hr Midodrine (Proamatine) 10 mg PO MWF [facility] Last Admin: 04/27/18 12:14 Dose: 10 mg Multi-Ingredient Ointment (Hydrophor Oint) 0 gm TOP Q12 [facility] Last Admin: 04/28/18 11:00 Dose: Not Given Nystatin (Nystop Topical Powder) 0 gm TOP BID [facility] Last Admin: 04/28/18 11:00 Dose: Not Given Pantoprazole Sodium (Protonix Ec Tab) 40 mg PO 0600,1600 [facility] Last Admin: 04/28/18 05:37 Dose: 40 mg Spironolactone (Aldactone) 50 mg PO DAILY [facility] Stop: 05/25/18 10:01 Last Admin: 04/28/18 09:56 Dose: Not Given Vancomycin HCl (Vancocin 25 Mg/Ml (Oral Use)) 125 mg PO QID [facility]; Protocol Stop: 05/04/18 14:00 Last Admin: 04/28/18 14:26 Dose: 125 mg Vitamin B Complex/Vit C/Folic Acid (Nephro-Bhupinder) 1 tab PO 0800 [facility] Last Admin: 04/28/18 09:55 Dose: 1 tab Zolpidem Tartrate (Ambien) 5 mg PO HS [facility]; Protocol Last Admin: 04/27/18 21:19 Dose: 5 mg - Labs Labs: 04/28/18 06:30 04/28/18 06:30 PT 13.2 SECONDS (9.4-12.5) H 04/03/18 15:44 INR 1.15 04/03/18 15:44 APTT 30.7 Seconds (25.1-36.5) 04/03/18 15:44 Attending/Attestation - Attestation I have personally seen and examined this patient.: Yes I have fully participated in the care of the patient.: Yes I have reviewed all pertinent clinical information, including history, physical exam and plan: Yes Notes (Text): 04/28/18 15:08 Medical record note made by the resident after discussion with my direction and input after the patient was personally seen and examined by me. I have reviewed the chart and agree that the record accurately reflects by personal performance of the history, physical exam, data review, and medical decision-making, in the course for the patient. I have also personally directed the plan of care.
--- NOTE | 2018-04-27 13:47 | CP.PCM.PN ---
Subjective - Date & Time of Evaluation Date of Evaluation: 04/27/18 Time of Evaluation: 13:46 - Subjective Subjective: Nephrology Consultation Note: Assessment: stable oligoanuric Acute Kidney Injury (N17.9) likely due to ATN, pre-renal state, intrasvasc hypovolemia, impaired renal perfusion, HD 04/05/18: first session anasarca severe symptomatic anemia due to GI bleed with gastric ulcers mild hyperkalemia and HAGMA, hyperphos hx of cirrhosis and etoh intra-ab lymphadenopathy morbid obesity acute influenza C diff colitis Plan HD tolerated well so far, on MWF schedule. 24 hr crcl: 6 and volume 200 mL. Maintain hemodynamics stable. Avoid hypotension. Patient not on ACEI/ARB due to recent FELIPE. added midodrine pre HD Monitor Input/Output, daily weights and renal function with basic metabolic panel held phos binders due to diarrhoea PRBC as needed. s/p 1 gram IV iron, now on weekly aranesp/IV iron GI consult, pt on PPI work up for FELIPE and anemia as ordered. GN work up neg hence will defer kidney biopsy. also pt with liver disease and morbidly obese. started weekly vit d consider further work up for ascites. started on aldactone 50 mg/d to reduce portal HTN Dose meds/antibiotics for reduced GFR. Avoid fleets enema/magnesium based laxat harsha. Avoid nephrotoxins/NSAIDs/ iodinated contrast (unless needed emergently) Glycemic control Further work up/management as per primary team she is arranged for outpt HD. Av access will be planned later as outpt if no renal recovery in 3 months Thanks for allowing me to participate in care of your patient. Will follow patient with you. Please call if any Qs. had d/w team Dr Kenji Salmeron Office: [phone] Chief Complaint; fatigue Reason for consult: Acute Kidney Injury HPI: Pt is a 52 F with hx of alcoholism in past, cirrhosis (pt states got better on its own in past) but no regular follow up with PMD presented with complaints of fatigue and tiredness for last few days, found to have severe anemia and FELIPE Denies OTC/herbal meds but NSAIDs as alleve for last few days No recent iodinated contrast exposure. Noted obvious episodes of low BP. reports chronic leg swelling but more now denies smoking or etoh now ROS: c/o swelling in leg. had gastric ulcers on EGD Cardiovascular: No chest pain. Pulmonary: improved shortness of breath but with cough Gastrointestinal: denies abdominal pain No nausea. No vomiting. had loose stool multiple episodes, but better Genitourinary: not much UOP All other negative except as mentioned in HPI feels sad that she is still bedbound Physical Examination: General Appearance: Comfortable, in no acute respiratory distress, co-operative . morbid obese Vitals reviewed and noted as below Head; Atraumatic, normocephalic ENT: no ulcers no thrush. Tongue is midline. Oropharynx: no rash or ulcers. EYES: Pupils are equal, round and reactive to light accommodation. Eye muscles and extraocular movement intact. Sclera is anicteric. Neck; supple no lymphadenopathy, no thyromegaly or bruit Lungs: Normal respiratory rate/effort. Breath sounds bilateral clear Heart: Normal rate. s1s2 normal. No rub or gallop. Extremities: 2-3+ edema. Neurological: Patient is alert, awake and oriented to person, place and time. No focal deficit. Strength bilateral appropriate and equal Skin: Warm and dry. Normal turgor. spider angioma rash upper chest. Palpitation: Normal elasticity for age Abdomen: Abdomen is soft. Bowel sounds +. There is no abdominal tenderness, no guarding/rigidity no organomegaly. limited due to obesity and abd wall edema Psych: normal insight and flat affect/mood MSK: no joint tenderness or swelling. Digits and nails normal, no deformity : kidney or bladder not palpable. has access as permacath Labs/imaging reviewed. Past medical history, past surgical history, family history, social history, allergy reviewed and noted as below Family hx: no hx of CKD. Rest non-contributory fena 0.3% intra-ab lymphadenopathy Objective - Vital Signs/Intake and Output Vital Signs (last 24 hours): Temp Pulse Resp BP Pulse Ox 98.4 F 85 20 100/54 L 97 04/27/18 06:00 04/27/18 06:00 04/27/18 06:00 04/27/18 06:00 04/27/18 06:00 Intake and Output: 04/27/18 04/27/18 06:59 18:59 Intake Total 300 Balance 300 - Medications Medications: Current Medications Acetaminophen (Tylenol 325mg Tab) 650 mg PO Q6 PRN PRN Reason: Fever >100.4 F Last Admin: 04/13/18 05:56 Dose: 650 mg Albuterol/Ipratropium (Duoneb 3 Mg/0.5 Mg (3 Ml) Ud) 3 ml IH [id number] [facility] Last Admin: 04/27/18 13:05 Dose: Not Given Albuterol/Ipratropium (Duoneb 3 Mg/0.5 Mg (3 Ml) Ud) 3 ml IH Q2H PRN PRN Reason: Shortness of Breath Last Admin: 04/21/18 00:50 Dose: 3 ml Alprazolam (Xanax) 0.25 mg PO TID PRN; Protocol PRN Reason: Anxiety Last Admin: 04/27/18 00:18 Dose: 0.25 mg Benzonatate (Tessalon Perles) 100 mg PO TID PRN PRN Reason: Cough Last Admin: 04/25/18 15:43 Dose: 100 mg Darbepoetin Fletcher (Aranesp) 200 mcg IVP QWK [facility] Ergocalciferol (Drisdol 50,000 Intl Units Cap) 1 cap PO Q7D [facility] Last Admin: 04/22/18 17:07 Dose: 1 cap Fluoxetine HCl (Prozac) 10 mg PO DAILY [facility] Last Admin: 04/27/18 11:05 Dose: 10 mg Heparin Sodium (Porcine) (Heparin) 5,000 units SC Q8 [facility]; Protocol Last Admin: 04/27/18 05:53 Dose: 5,000 units Heparin Sodium (Porcine) (Heparin) 2,000 units IVP MWF [facility]; Protocol Last Admin: 04/25/18 12:25 Dose: 2,000 units Iron Sucrose 100 mg/ Sodium (Chloride) 105 mls @ 210 mls/hr IVPB QWK [facility] Stop: 05/18/18 10:29 Last Admin: 04/27/18 11:13 Dose: 210 mls/hr Midodrine (Proamatine) 10 mg PO MWF [facility] Last Admin: 04/27/18 12:14 Dose: 10 mg Multi-Ingredient Ointment (Hydrophor Oint) 0 gm TOP Q12 [facility] Last Admin: 04/27/18 11:08 Dose: 1 appl Nystatin (Nystop Topical Powder) 0 gm TOP BID [facility] Last Admin: 04/27/18 11:08 Dose: 1 appl Pantoprazole Sodium (Protonix Ec Tab) 40 mg PO 0600,1600 [facility] Last Admin: 04/27/18 05:53 Dose: 40 mg Spironolactone (Aldactone) 50 mg PO DAILY [facility] Stop: 05/25/18 10:01 Last Admin: 04/27/18 11:11 Dose: 50 mg Vancomycin HCl (Vancocin 25 Mg/Ml (Oral Use)) 125 mg PO QID [facility]; Protocol Stop: 05/04/18 14:00 Last Admin: 04/27/18 11:05 Dose: 125 mg Vitamin B Complex/Vit C/Folic Acid (Nephro-Bhupinder) 1 tab PO 0800 [facility] Last Admin: 04/27/18 08:34 Dose: 1 tab Zolpidem Tartrate (Ambien) 5 mg PO HS [facility]; Protocol Last Admin: 04/26/18 21:42 Dose: 5 mg - Labs Labs: 04/26/18 06:45 04/26/18 06:45 PT 13.2 SECONDS (9.4-12.5) H 04/03/18 15:44 INR 1.15 04/03/18 15:44 APTT 30.7 Seconds (25.1-36.5) 04/03/18 15:44
--- NOTE | 2018-04-27 17:02 | CP.PCM.PN ---
<Collette Sales - Last Filed: 04/27/18 16:59> Subjective - Date & Time of Evaluation Date of Evaluation: 04/27/18 Time of Evaluation: 16:59 - Subjective Subjective: ID progress note PGY-[address] Arceo Pt is in better mood. 4 diarrhea yesterday. 1 diarrhea this AM. no other acute complaint Objective - Vital Signs/Intake and Output Vital Signs (last 24 hours): Temp Pulse Resp BP Pulse Ox 98.4 F 85 20 100/54 L 97 04/27/18 06:00 04/27/18 06:00 04/27/18 06:00 04/27/18 06:00 04/27/18 06:00 Intake and Output: 04/27/18 04/27/18 06:59 18:59 Intake Total 300 Balance 300 - Medications Medications: Current Medications Acetaminophen (Tylenol 325mg Tab) 650 mg PO Q6 PRN PRN Reason: Fever >100.4 F Last Admin: 04/13/18 05:56 Dose: 650 mg Albuterol/Ipratropium (Duoneb 3 Mg/0.5 Mg (3 Ml) Ud) 3 ml IH [id number] MAKAYLA Last Admin: 04/27/18 13:05 Dose: Not Given Albuterol/Ipratropium (Duoneb 3 Mg/0.5 Mg (3 Ml) Ud) 3 ml IH Q2H PRN PRN Reason: Shortness of Breath Last Admin: 04/21/18 00:50 Dose: 3 ml Alprazolam (Xanax) 0.25 mg PO TID PRN; Protocol PRN Reason: Anxiety Last Admin: 04/27/18 00:18 Dose: 0.25 mg Benzonatate (Tessalon Perles) 100 mg PO TID PRN PRN Reason: Cough Last Admin: 04/25/18 15:43 Dose: 100 mg Darbepoetin Fletcher (Aranesp) 200 mcg IVP QWK [facility] Ergocalciferol (Drisdol 50,000 Intl Units Cap) 1 cap PO Q7D [facility] Last Admin: 04/22/18 17:07 Dose: 1 cap Fluoxetine HCl (Prozac) 10 mg PO DAILY MAKAYLA Last Admin: 04/27/18 11:05 Dose: 10 mg Heparin Sodium (Porcine) (Heparin) 5,000 units SC Q8 [facility]; Protocol Last Admin: 04/27/18 15:48 Dose: Not Given Heparin Sodium (Porcine) (Heparin) 2,000 [place] [facility] [place] Last Admin: 04/25/18 12:25 Dose: 2,000 units Iron Sucrose 100 mg/ Sodium (Chloride) 105 mls @ 210 mls/hr IVPB QWK [facility] Stop: 05/18/18 10:29 Last Admin: 04/27/18 11:13 Dose: 210 mls/hr Midodrine (Proamatine) 10 mg PO MWF [facility] Last Admin: 04/27/18 12:14 Dose: 10 mg Multi-Ingredient Ointment (Hydrophor Oint) 0 gm TOP Q12 [facility] Last Admin: 04/27/18 11:08 Dose: 1 appl Nystatin (Nystop Topical Powder) 0 gm TOP BID [facility] Last Admin: 04/27/18 11:08 Dose: 1 appl Pantoprazole Sodium (Protonix Ec Tab) 40 mg PO 0600,1600 [facility] Last Admin: 04/27/18 16:39 Dose: 40 mg Spironolactone (Aldactone) 50 mg PO DAILY [facility] Stop: 05/25/18 10:01 Last Admin: 04/27/18 11:11 Dose: 50 mg Vancomycin HCl (Vancocin 25 Mg/Ml (Oral Use)) 125 mg PO QID [facility]; Protocol Stop: 05/04/18 14:00 Last Admin: 04/27/18 15:50 Dose: Not Given Vitamin B Complex/Vit C/Folic Acid (Nephro-Bhupinder) 1 tab PO 0800 [facility] Last Admin: 04/27/18 08:34 Dose: 1 tab Zolpidem Tartrate (Ambien) 5 mg PO HS [facility]; Protocol Last Admin: 04/26/18 21:42 Dose: 5 mg - Labs Labs: 04/26/18 06:45 04/26/18 06:45 PT 13.2 SECONDS (9.4-12.5) H 04/03/18 15:44 INR 1.15 04/03/18 15:44 APTT 30.7 Seconds (25.1-36.5) 04/03/18 15:44 - Constitutional Appears: No Acute Distress - Head Exam Head Exam: ATRAUMATIC, NORMAL INSPECTION, NORMOCEPHALIC - Eye Exam Eye Exam: EOMI, Normal appearance, PERRL. absent: Scleral icterus Pupil Exam: NORMAL ACCOMODATION - ENT Exam ENT Exam: Mucous Membranes Moist - Neck Exam Additional comments: supple - Respiratory Exam Respiratory Exam: Decreased Breath Sounds (b/l lung bases), Clear to Ausculation Bilateral - Cardiovascular Exam Cardiovascular Exam: REGULAR RHYTHM, +S1, +S2 - GI/Abdominal Exam GI & Abdominal Exam: Soft, Tenderness (mild), Hypoactive Bowel Sounds - Extremities Exam Extremities Exam: Pedal Edema - Neurological Exam Neurological Exam: Alert, Awake, Oriented x3 - Psychiatric Exam Psychiatric exam: Normal Affect, Normal Mood - Skin Skin Exam: Dry, Warm Assessment and Plan - Assessment and Plan (Free Text) Plan: Ms Maguire, 52 yo F with PMHx ETOH abuse with liver failure, morbid obesity c/o worsening weakness and admitted for management of anemia and FELIPE with metabolic acidosis. A: C diff colitis Leukocytosis 13.9 S/P treatment of Influenza A infection S/P UTI with Klebsiella chronic lymphedema of lower extremities without evidence of cellulitis morbid obesity with BMI 52 Oligoanuric FELIPE with anasarca, new on dialysis via cath (03/2018, 1st session), HD MWF Dialysis catheter on chest Plan Vanco PO (day 07/25) trend Temp, WBC Contact precaution s/r/d/w Dr Arceo <Raman Arceo S - Last Filed: 04/27/18 23:13> Objective - Vital Signs/Intake and Output Vital Signs (last 24 hours): Temp Pulse Resp BP Pulse Ox 98.2 F 88 16 99/46 L 100 04/27/18 22:00 04/27/18 22:00 04/27/18 22:00 04/27/18 22:00 04/27/18 22:00 - Medications Medications: Current Medications Acetaminophen (Tylenol 325mg Tab) 650 mg PO Q6 PRN PRN Reason: Fever >100.4 F Last Admin: 04/13/18 05:56 Dose: 650 mg Albuterol/Ipratropium (Duoneb 3 Mg/0.5 Mg (3 Ml) Ud) 3 ml IH [id number] MAKAYLA Last Admin: 04/27/18 19:53 Dose: 3 ml Albuterol/Ipratropium (Duoneb 3 Mg/0.5 Mg (3 Ml) Ud) 3 ml IH Q2H PRN PRN Reason: Shortness of Breath Last Admin: 04/21/18 00:50 Dose: 3 ml Alprazolam (Xanax) 0.25 mg PO TID PRN; Protocol PRN Reason: Anxiety Last Admin: 04/27/18 17:13 Dose: 0.25 mg Benzonatate (Tessalon Perles) 100 mg PO TID PRN PRN Reason: Cough Last Admin: 04/25/18 15:43 Dose: 100 mg Darbepoetin Fletcher (Aranesp) 200 mcg IVP QWK [facility] Ergocalciferol (Drisdol 50,000 Intl Units Cap) 1 cap PO Q7D [facility] Last Admin: 04/22/18 17:07 Dose: 1 cap Fluoxetine HCl (Prozac) 10 mg PO DAILY [facility] Last Admin: 04/27/18 11:05 Dose: 10 mg Heparin Sodium (Porcine) (Heparin) 5,000 units SC Q8 [facility]; Protocol Last Admin: 04/27/18 21:18 Dose: 5,000 units Heparin Sodium (Porcine) (Heparin) 2,000 units IVP MWF [facility]; Protocol Last Admin: 04/25/18 12:25 Dose: 2,000 units Iron Sucrose 100 mg/ Sodium (Chloride) 105 mls @ 210 mls/hr IVPB QWK [facility] Stop: 05/18/18 10:29 Last Admin: 04/27/18 11:13 Dose: 210 mls/hr Midodrine (Proamatine) 10 mg PO MWF [facility] Last Admin: 04/27/18 12:14 Dose: 10 mg Multi-Ingredient Ointment (Hydrophor Oint) 0 gm TOP Q12 [facility] Last Admin: 04/27/18 21:18 Dose: 1 appl Nystatin (Nystop Topical Powder) 0 gm TOP BID [facility] Last Admin: 04/27/18 18:27 Dose: Not Given Pantoprazole Sodium (Protonix Ec Tab) 40 mg PO 0600,1600 [facility] Last Admin: 04/27/18 16:39 Dose: 40 mg Spironolactone (Aldactone) 50 mg PO DAILY [facility] Stop: 05/25/18 10:01 Last Admin: 04/27/18 11:11 Dose: 50 mg Vancomycin HCl (Vancocin 25 Mg/Ml (Oral Use)) 125 mg PO QID [facility]; Protocol Stop: 05/04/18 14:00 Last Admin: 04/27/18 21:18 Dose: 125 mg Vitamin B Complex/Vit C/Folic Acid (Nephro-Bhupinder) 1 tab PO 0800 [facility] Last Admin: 04/27/18 08:34 Dose: 1 tab Zolpidem Tartrate (Ambien) 5 mg PO HS [facility]; Protocol Last Admin: 04/27/18 21:19 Dose: 5 mg - Labs Labs: 04/26/18 06:45 04/26/18 06:45 PT 13.2 SECONDS (9.4-12.5) H 04/03/18 15:44 INR 1.15 04/03/18 15:44 APTT 30.7 Seconds (25.1-36.5) 04/03/18 15:44 Assessment and Plan - Assessment and Plan (Free Text) Plan: Infectious diseases Attending Physician Attestation Patient seen and examined, discussed with medical program specialist. I have reviewed the patient's history of present illness, past medical, social, personal and family histories, pertinent physical exam findings, course so far in this hospital admission, pertinent laboratory and imaging results. I agree with the above fi ndings, assessment and plan. In addition, complete total 10 days of PO Vancomycin for C. diff. colitis (day 4 today).
--- NOTE | 2018-04-27 17:33 | PN ---
DATE: 04/27/2018 SUBJECTIVE: The patient was seen today. The patient reported that she had a good night sleep with Ambien and she considered 3-4 hours of night sleep as good response. This video games storywriter discontinued trazodone because it was not effective. This video games storywriter started Prozac for this patient. So far the patient tolerates medications well. Denied any side effects. The patient still appears very depressed. Yesterday, the patient was making statements such as "I wish never been born" and "I just want to ." The patient denied that she has any intent or plan to kill herself, but wished to be . The patient denied any psychotic symptoms. Anxiety is under control with the Xanax. OBJECTIVE: VITAL SIGNS: Reviewed. Temperature is 98.4, pulse is 85, blood pressure 100/54, respiration 26 and saturation is 97%. MEDICATIONS: Reviewed. From a psychiatric standpoint, the patient is on 0.25 mg of Xanax three times a day, Prozac was started at 10 mg daily and Ambien was started 5 mg at the nighttime. So far the patient tolerates medications well. The patient still has leukocytosis. LABORATORY DATA: Chemistry reviewed. Microbiology. The patient is on contact isolation for MRSA. MENTAL STATUS EXAMINATION: The patient at present appears to be depressed and disengaged, flat affect. Mood described as depressed. Thought process concrete. Thought content, the patient denied visual, auditory, or tactile hallucinations. Reported feeling of hopelessness and helplessness. The patient wants to be , but denied any intent or plan to kill herself. Insight and judgment seems to be limited. Impulses are well controlled. IMPRESSION: Rule out mood disorder due to general medical condition, rule out major depressive disorder. PLAN: Prozac needs to be continued with a plan to increase dose slowly. Ambien should be continued. Xanax should be continued. Emotional support and empathic listening provided. The patient reported that she tried her best to exercise today and CBT provided. The patient was educated how transform her negative thinking to something positive. The patient was receptive. Follow up with Dr. Saxena over the weekend. Thank you very much for letting me participate in the care of your patient. Rachel Maradiaga MD [facility] # [phone]
[2018-04-28] MEDS: Albuterol-Ipratrop 3 mg / 0.5 (3 ml) UD IH SCH ×4 (01:36→19:32)
[2018-04-28] MEDS: Pantoprazole 40 mg EC Tab PO SCH ×2 (05:37→17:11)
[2018-04-28 06:58] LABS: ALB/GLOB RATIO 0.6 (1.1-1.8); ALBUMIN 1.9 g/dL (3.0-4.8); CALCIUM 7.6 mg/dL (8.4-10.5)
[2018-04-28 06:59] LABS: BASO # 0.07 K/mm3 (0.0-2.0); BASO % 0.7 % (0.0-3.0); EOS # 0.5 (0.0-0.7); EOS % 5.6 % (1.5-5.0); GRAN # 6.98 (1.4-6.5); GRAN % 71.8 % (50.0-68.0); HEMOGLOBIN 8.7 g/dL (12.0-16.0); LYMPH # 1.2 (1.2-3.4); LYMPH % 12.3 % (22.0-35.0); MEAN CELL VOLUME 89.1 fl (80.0-105.0); MEAN CORPUSCULAR HEMOGLOBIN 27.9 pg (25.0-35.0); MEAN CORPUSCULAR HGB CONC 31.3 g/dl (31.0-37.0); MEAN PLATELET VOLUME 8.3 fl (7.0-11.0); MONO # 0.9 (0.1-0.6); MONO % 9.6 % (1.0-6.0); RBC 3.12 10^6/uL (3.5-6.1); RED CELL DISTRIBUTION WIDTH 19.5 % (11.5-14.5); WHITE BLOOD COUNT 9.7 10^3/uL (4.5-11.0)
[2018-04-28] MEDS: Multivitamin Vitamin B Complex (Nephro-Vite) Tab PO SCH (09:55)
[2018-04-28] MEDS: Vancomycin 25 MG/ML PO SCH ×4 (09:55→22:02)
--- NOTE | 2018-04-28 10:55 | CP.PCM.PN ---
Subjective - Date & Time of Evaluation Date of Evaluation: 04/28/18 Time of Evaluation: 10:54 - Subjective Subjective: Nephrology Consultation Note: Assessment: stable oligoanuric Acute Kidney Injury (N17.9) likely due to ATN, pre-renal state, intrasvasc hypovolemia, impaired renal perfusion, HD 04/05/18: first session anasarca severe symptomatic anemia due to GI bleed with gastric ulcers mild hyperkalemia and HAGMA, hyperphos hx of cirrhosis and etoh intra-ab lymphadenopathy morbid obesity acute influenza C diff colitis Plan HD tolerated well so far, on MWF schedule. 24 hr crcl: 6 and volume 200 mL. Maintain hemodynamics stable. Avoid hypotension. Patient not on ACEI/ARB due to recent FELIPE. added midodrine pre HD Monitor Input/Output, daily weights and renal function with basic metabolic panel held phos binders due to diarrhoea PRBC as needed. s/p 1 gram IV iron, now on weekly aranesp/IV iron GI consult, pt on PPI work up for FELIPE and anemia as ordered. GN work up neg hence will defer kidney biopsy. also pt with liver disease and morbidly obese. started weekly vit d consider further work up for ascites. started on aldactone 50 mg/d to reduce portal HTN Dose meds/antibiotics for reduced GFR. Avoid fleets enema/magnesium based laxat harsha. Avoid nephrotoxins/NSAIDs/ iodinated contrast (unless needed emergently) Glycemic control Further work up/management as per primary team she is arranged for outpt HD. Av access will be planned later as outpt if no renal recovery in 3 months Thanks for allowing me to participate in care of your patient. Will follow patient with you. Please call if any Qs. had d/w team Dr Kenji Salmeron Office: [phone] Chief Complaint; fatigue Reason for consult: Acute Kidney Injury HPI: Pt is a 52 F with hx of alcoholism in past, cirrhosis (pt states got better on its own in past) but no regular follow up with PMD presented with complaints of fatigue and tiredness for last few days, found to have severe anemia and FELIPE Denies OTC/herbal meds but NSAIDs as alleve for last few days No recent iodinated contrast exposure. Noted obvious episodes of low BP. reports chronic leg swelling but more now denies smoking or etoh now ROS: c/o swelling in leg. had gastric ulcers on EGD Cardiovascular: No chest pain. Pulmonary: improved shortness of breath but with cough Gastrointestinal: denies abdominal pain No nausea. No vomiting. had loose stool multiple episodes, but better Genitourinary: not much UOP All other negative except as mentioned in HPI feels sad that she is still bed-bound Physical Examination: General Appearance: Comfortable, in no acute respiratory distress, co-operative . morbid obese Vitals reviewed and noted as below Head; Atraumatic, normocephalic ENT: no ulcers no thrush. Tongue is midline. Oropharynx: no rash or ulcers. EYES: Pupils are equal, round and reactive to light accommodation. Eye muscles and extraocular movement intact. Sclera is anicteric. Neck; supple no lymphadenopathy, no thyromegaly or bruit Lungs: Normal respiratory rate/effort. Breath sounds bilateral clear Heart: Normal rate. s1s2 normal. No rub or gallop. Extremities: 2-3+ edema. Neurological: Patient is alert, awake and oriented to person, place and time. No focal deficit. Strength bilateral appropriate and equal Skin: Warm and dry. Normal turgor. spider angioma rash upper chest. Palpitation: Normal elasticity for age Abdomen: Abdomen is soft. Bowel sounds +. There is no abdominal tenderness, no guarding/rigidity no organomegaly. limited due to obesity and abd wall edema Psych: normal insight and flat affect/mood MSK: no joint tenderness or swelling. Digits and nails normal, no deformity : kidney or bladder not palpable. has access as permacath Labs/imaging reviewed. Past medical history, past surgical history, family history, social history, allergy reviewed and noted as below Family hx: no hx of CKD. Rest non-contributory fena 0.3% intra-ab lymphadenopathy Objective - Vital Signs/Intake and Output Vital Signs (last 24 hours): Temp Pulse Resp BP Pulse Ox 98.2 F 88 16 99/46 L 100 04/27/18 22:00 04/27/18 22:00 04/27/18 22:00 04/27/18 22:00 04/27/18 22:00 - Medications Medications: Current Medications Acetaminophen (Tylenol 325mg Tab) 650 mg PO Q6 PRN PRN Reason: Fever >100.4 F Last Admin: 04/13/18 05:56 Dose: 650 mg Albuterol/Ipratropium (Duoneb 3 Mg/0.5 Mg (3 Ml) Ud) 3 ml IH [id number] [facility] Last Admin: 04/28/18 07:34 Dose: 3 ml Albuterol/Ipratropium (Duoneb 3 Mg/0.5 Mg (3 Ml) Ud) 3 ml IH Q2H PRN PRN Reason: Shortness of Breath Last Admin: 04/21/18 00:50 Dose: 3 ml Alprazolam (Xanax) 0.25 mg PO TID PRN; Protocol PRN Reason: Anxiety Last Admin: 04/27/18 17:13 Dose: 0.25 mg Benzonatate (Tessalon Perles) 100 mg PO TID PRN PRN Reason: Cough Last Admin: 04/25/18 15:43 Dose: 100 mg Darbepoetin Fletcher (Aranesp) 200 mcg IVP QWK [facility] Ergocalciferol (Drisdol 50,000 Intl Units Cap) 1 cap PO Q7D [facility] Last Admin: 04/22/18 17:07 Dose: 1 cap Fluoxetine HCl (Prozac) 10 mg PO DAILY [facility] Last Admin: 04/28/18 09:56 Dose: 10 mg Heparin Sodium (Porcine) (Heparin) 5,000 units SC Q8 [facility]; Protocol Last Admin: 04/28/18 05:37 Dose: 5,000 units Heparin Sodium (Porcine) (Heparin) 2,000 units IVP MWF [facility]; Protocol Last Admin: 04/25/18 12:25 Dose: 2,000 units Iron Sucrose 100 mg/ Sodium (Chloride) 105 mls @ 210 mls/hr IVPB QWK [facility] Stop: 05/18/18 10:29 Last Admin: 04/27/18 11:13 Dose: 210 mls/hr Midodrine (Proamatine) 10 mg PO MWF [facility] Last Admin: 04/27/18 12:14 Dose: 10 mg Multi-Ingredient Ointment (Hydrophor Oint) 0 gm TOP Q12 [facility] Last Admin: 04/27/18 21:18 Dose: 1 appl Nystatin (Nystop Topical Powder) 0 gm TOP BID [facility] Last Admin: 04/27/18 18:27 Dose: Not Given Pantoprazole Sodium (Protonix Ec Tab) 40 mg PO 0600,1600 [facility] Last Admin: 04/28/18 05:37 Dose: 40 mg Spironolactone (Aldactone) 50 mg PO DAILY [facility] Stop: 05/25/18 10:01 Last Admin: 04/28/18 09:56 Dose: Not Given Vancomycin HCl (Vancocin 25 Mg/Ml (Oral Use)) 125 mg PO QID [facility]; Protocol Stop: 05/04/18 14:00 Last Admin: 04/28/18 09:55 Dose: 125 mg Vitamin B Complex/Vit C/Folic Acid (Nephro-Bhupinder) 1 tab PO 0800 [facility] Last Admin: 04/28/18 09:55 Dose: 1 tab Zolpidem Tartrate (Ambien) 5 mg PO HS [facility]; Protocol Last Admin: 04/27/18 21:19 Dose: 5 mg - Labs Labs: 04/28/18 06:30 04/28/18 06:30 PT 13.2 SECONDS (9.4-12.5) H 04/03/18 15:44 INR 1.15 04/03/18 15:44 APTT 30.7 Seconds (25.1-36.5) 04/03/18 15:44
[2018-04-28] MEDS: Petrolatum-Mineral Oil Oint (100gm) TOP SCH ×2 (11:00→22:01)
[2018-04-28] MEDS: Nystatin 100,000 Units/gm Topical Pow(15 gm) TOP SCH ×2 (11:00→17:14)
--- NOTE | 2018-04-28 12:08 | CP.PCM.PN ---
<Nhung Anne - Last Filed: 04/28/18 12:02> Subjective - Date & Time of Evaluation Date of Evaluation: 04/28/18 Time of Evaluation: 09:30 - Subjective Subjective: Nhung Anne Y1 Hospital Progress Note Patient seen and examined at bedside this morning. Admits to one episode of diarrhea this morning. Denies abdominal pain. Offers no complaints today. Objective - Vital Signs/Intake and Output Vital Signs (last 24 hours): Temp Pulse Resp BP Pulse Ox 98.2 F 88 16 99/46 L 100 04/27/18 22:00 04/27/18 22:00 04/27/18 22:00 04/27/18 22:00 04/27/18 22:00 - Medications Medications: Current Medications Acetaminophen (Tylenol 325mg Tab) 650 mg PO Q6 PRN PRN Reason: Fever >100.4 F Last Admin: 04/13/18 05:56 Dose: 650 mg Albuterol/Ipratropium (Duoneb 3 Mg/0.5 Mg (3 Ml) Ud) 3 ml IH [id number] MAKAYLA Last Admin: 04/28/18 07:34 Dose: 3 ml Albuterol/Ipratropium (Duoneb 3 Mg/0.5 Mg (3 Ml) Ud) 3 ml IH Q2H PRN PRN Reason: Shortness of Breath Last Admin: 04/21/18 00:50 Dose: 3 ml Alprazolam (Xanax) 0.25 mg PO TID PRN; Protocol PRN Reason: Anxiety Last Admin: 04/27/18 17:13 Dose: 0.25 mg Benzonatate (Tessalon Perles) 100 mg PO TID PRN PRN Reason: Cough Last Admin: 04/25/18 15:43 Dose: 100 mg Darbepoetin Fletcher (Aranesp) 200 mcg IVP QWK MAKAYLA Ergocalciferol (Drisdol 50,000 Intl Units Cap) 1 cap PO Q7D [facility] Last Admin: 04/22/18 17:07 Dose: 1 cap Fluoxetine HCl (Prozac) 10 mg PO DAILY [facility] Last Admin: 04/28/18 09:56 Dose: 10 mg Heparin Sodium (Porcine) (Heparin) 5,000 units SC Q8 [facility]; Protocol Last Admin: 04/28/18 05:37 Dose: 5,000 units Heparin Sodium (Porcine) (Heparin) 2,000 units IVP [facility] [place]; Protocol Last Admin: 04/25/18 12:25 Dose: 2,000 units Iron Sucrose 100 mg/ Sodium (Chloride) 105 mls @ 210 mls/hr IVPB QWK [facility] Stop: 05/18/18 10:29 Last Admin: 04/27/18 11:13 Dose: 210 mls/hr Midodrine (Proamatine) 10 mg PO MWF [facility] Last Admin: 04/27/18 12:14 Dose: 10 mg Multi-Ingredient Ointment (Hydrophor Oint) 0 gm TOP Q12 [facility] Last Admin: 04/27/18 21:18 Dose: 1 appl Nystatin (Nystop Topical Powder) 0 gm TOP BID [facility] Last Admin: 04/27/18 18:27 Dose: Not Given Pantoprazole Sodium (Protonix Ec Tab) 40 mg PO 0600,1600 [facility] Last Admin: 04/28/18 05:37 Dose: 40 mg Spironolactone (Aldactone) 50 mg PO DAILY [facility] Stop: 05/25/18 10:01 Last Admin: 04/28/18 09:56 Dose: Not Given Vancomycin HCl (Vancocin 25 Mg/Ml (Oral Use)) 125 mg PO QID [facility]; Protocol Stop: 05/04/18 14:00 Last Admin: 04/28/18 09:55 Dose: 125 mg Vitamin B Complex/Vit C/Folic Acid (Nephro-Bhupinder) 1 tab PO 0800 [facility] Last Admin: 04/28/18 09:55 Dose: 1 tab Zolpidem Tartrate (Ambien) 5 mg PO HS [facility]; Protocol Last Admin: 04/27/18 21:19 Dose: 5 mg - Labs Labs: 04/28/18 06:30 04/28/18 06:30 PT 13.2 SECONDS (9.4-12.5) H 04/03/18 15:44 INR 1.15 04/03/18 15:44 APTT 30.7 Seconds (25.1-36.5) 04/03/18 15:44 - Additional Findings Additional findings: - Constitutional Appears: No Acute Distress - Head Exam Head Exam: NORMAL INSPECTION, ATRAUMATIC - Eye Exam Eye Exam: EOMI, PERRL - ENT Exam ENT Exam: Mucous Membranes Moist, Normal Exam - Neck Exam Neck exam: Positive for: Normal Inspection - Respiratory Exam Respiratory Exam: Clear to Auscultation Bilateral. absent: Rales, Rhonchi, Wheezes, respiratory distress - Cardiovascular Exam Cardiovascular Exam: Regular rhythm, +S1, +S2. absent: Systolic Murmur - GI/Abdominal Exam GI & Abdominal Exam: Soft. Bowel sounds heard in all 4 quadrants absent: Distended, Guarding, Rebound, Tenderness - Extremities Exam Extremities exam: Positive for: pedal edema Additional comments: Skin Exam Skin exam: stage 1-2 ulcer on the right thigh, non draining/bleeding/pus Assessment and Plan - Assessment and Plan (Free Text) Assessment: Patient is a 52 yo F with past medical history liver failure, morbid obesity, and EtOH abuse presents to [facility] for worsening weakness and admitted for management of anemia and FELIPE with metabolic acidosis. Focusing on outpatient HD placement and PT at this time. Psych put on consult for depressed mood. Plan: C. Diff -cdiff antigen and toxin positive -PO vancomycine day 5 out of 10 -had one episode of watery diarrhea this AM, improved from yesterday -leukocytosis downtrending -contact precautions Depression -Psych on consult, Dr. Ramos -continue xanax prn, prozac and ambien Acute renal failure - improved -on HD MWF -Working with pillowcase sewer for outpatient HD setup, working on placement -will get blood work every other day -Renal US is unremarkable -Renagel 800 mg PO TID -Strict I's and O's -Nephrology on consult, Dr. Salmeron Chronic lymphedema of B/L legs -podiatry on consult, no further recommendations, local wound care for now - not currently draining/weeping -repeat ext US shows possible right SFA occlusive disease, limited study due to artifact -wound culture grew Enterobacter Cloacae, E. faecalis - superficial bacteria colonizers -PT recommends [facility] -daily PT rehab Microcytic anemia -s/p total 11 units pRBCs, 2 FFPs -oral iron started -endoscopy showed 3 non bleeding gastric ulcers, largest one 8mm -iron studies shows likely iron deficiency -Head CT unremarkable -CTAP shows adenopathy of the hepatic gastric ligament -GI on consult, Dr. Melo Fever - resolved -afebrile, no WBC -positive flu type A, completed course of tamiflu -completed course of merrem for UTI with klebsiella -CXR showed moderate cardiomegaly, vascular congestion -blood culture shows no growth after 5 days Elevated BNP -BNP 43032 on admission -Echo showed EF of 68%, mild TR/MR, mild pulm HTN, borderline LVH PPX/Diet -protonix, heparin -renal, fiber diet Patient seen and case discussed with attending, Dr. Ojeda <Sagrario Ojeda - Last Filed: 04/28/18 15:08> Objective - Vital Signs/Intake and Output Vital Signs (last 24 hours): Temp Pulse Resp BP Pulse Ox 98.2 F 88 16 99/46 L 100 04/27/18 22:00 04/27/18 22:00 04/27/18 22:00 04/27/18 22:00 04/27/18 22:00 - Medications Medications: Current Medications Acetaminophen (Tylenol 325mg Tab) 650 mg PO Q6 PRN PRN Reason: Fever >100.4 F Last Admin: 04/13/18 05:56 Dose: 650 mg Albuterol/Ipratropium (Duoneb 3 Mg/0.5 Mg (3 Ml) Ud) 3 ml IH [id number] [facility] Last Admin: 04/28/18 13:29 Dose: 3 ml Albuterol/Ipratropium (Duoneb 3 Mg/0.5 Mg (3 Ml) Ud) 3 ml IH Q2H PRN PRN Reason: Shortness of Breath Last Admin: 04/21/18 00:50 Dose: 3 ml Alprazolam (Xanax) 0.25 mg PO TID PRN; Protocol PRN Reason: Anxiety Last Admin: 04/27/18 17:13 Dose: 0.25 mg Benzonatate (Tessalon Perles) 100 mg PO TID PRN PRN Reason: Cough Last Admin: 04/25/18 15:43 Dose: 100 mg Darbepoetin Fletcher (Aranesp) 200 mcg IVP QWK [facility] Ergocalciferol (Drisdol 50,000 Intl Units Cap) 1 cap PO Q7D [facility] Last Admin: 04/22/18 17:07 Dose: 1 cap Fluoxetine HCl (Prozac) 10 mg PO DAILY [facility] Last Admin: 04/28/18 09:56 Dose: 10 mg Heparin Sodium (Porcine) (Heparin) 5,000 units SC Q8 [facility]; Protocol Last Admin: 04/28/18 14:25 Dose: 5,000 units Heparin Sodium (Porcine) (Heparin) 2,000 units IVP [facility] [place]; Protocol Last Admin: 04/25/18 12:25 Dose: 2,000 units Iron Sucrose 100 mg/ Sodium (Chloride) 105 mls @ 210 mls/hr IVPB QWK [facility] Stop: 05/18/18 10:29 Last Admin: 04/27/18 11:13 Dose: 210 mls/hr Midodrine (Proamatine) 10 mg PO MWF [facility] Last Admin: 04/27/18 12:14 Dose: 10 mg Multi-Ingredient Ointment (Hydrophor Oint) 0 gm TOP Q12 [facility] Last Admin: 04/28/18 11:00 Dose: Not Given Nystatin (Nystop Topical Powder) 0 gm TOP BID [facility] Last Admin: 04/28/18 11:00 Dose: Not Given Pantoprazole Sodium (Protonix Ec Tab) 40 mg PO 0600,1600 [facility] Last Admin: 04/28/18 05:37 Dose: 40 mg Spironolactone (Aldactone) 50 mg PO DAILY [facility] Stop: 05/25/18 10:01 Last Admin: 04/28/18 09:56 Dose: Not Given Vancomycin HCl (Vancocin 25 Mg/Ml (Oral Use)) 125 mg PO QID [facility]; Protocol Stop: 05/04/18 14:00 Last Admin: 04/28/18 14:26 Dose: 125 mg Vitamin B Complex/Vit C/Folic Acid (Nephro-Bhupinder) 1 tab PO 0800 [facility] Last Admin: 04/28/18 09:55 Dose: 1 tab Zolpidem Tartrate (Ambien) 5 mg PO HS [facility]; Protocol Last Admin: 04/27/18 21:19 Dose: 5 mg - Labs Labs: 04/28/18 06:30 04/28/18 06:30 PT 13.2 SECONDS (9.4-12.5) H 04/03/18 15:44 INR 1.15 04/03/18 15:44 APTT 30.7 Seconds (25.1-36.5) 04/03/18 15:44 Attending/Attestation - Attestation I have personally seen and examined this patient.: Yes I have fully participated in the care of the patient.: Yes I have reviewed all pertinent clinical information, including history, physical exam and plan: Yes Notes (Text): 04/28/18 15:03 Medical record note made by the resident after discussion with my direction and input after the patient was personally seen and examined by me. I have reviewed the chart and agree that the record accurately reflects by personal performance of the history, physical exam, data review, and medical decision-making, in the course for the patient. I have also personally directed the plan of care. 52 year old female with past medical history of liver failure, alcohol abuse, depression and gastric bypass surgery who presented with complaint of generalized weakness, fatigue and dark stools. She was found to have acute microcytic anemia and severe metabolic acidosis with acute renal failure. She is s/p multiple PRBC transfusions. She is s/p EGD which showed multiple gastric ulcers. Patient developed diarrhea and is found to have C diff colitis. C diff colitis. Diarrhea is improving, on oral Vancomycin. Anemia. She is on protonix and H/H has been stable. Nephrology is following for FELIPE and metabolic acidosis. Patient is on hemodialysis 3 times a week MW. PT evaluation was appreciated who recommended [facility] ,Patient is awaiting placement. Management plan was discussed in detail with patient. Education was provided.
--- NOTE | 2018-04-28 19:14 | PN ---
DATE: 04/28/2018 SUBJECTIVE: The patient is in bed, in no acute distress. PHYSICAL EXAMINATION: VITAL SIGNS: Temperature of 98, blood pressure is 93/40, and respiratory rate of 18. HEENT: Unremarkable. NECK: Supple. LUNGS: Decreased breath sounds. HEART: Normal S1 and S2. ABDOMEN: Soft. LABORATORY DATA: Reveals a white count 9.7 and hemoglobin of 8. Creatinine of 2.8. Urinalysis is noted. Influenza is positive. Review of orders reveals the patient to be on p.o. vancomycin. ASSESSMENT AND PLAN: This is a 52-year-old female with pseudomembranous colitis on p.o. vancomycin day #5 of 10 days. We will follow with you. Orion Thompson MD
[2018-04-29] MEDS: Albuterol-Ipratrop 3 mg / 0.5 (3 ml) UD IH SCH ×4 (01:18→20:20)
[2018-04-29] MEDS: Pantoprazole 40 mg EC Tab PO SCH ×2 (05:36→17:36)
[2018-04-29] MEDS: Multivitamin Vitamin B Complex (Nephro-Vite) Tab PO SCH (08:30)
[2018-04-29] MEDS: Ergocalciferol 50,000 Intl Units Cap PO SCH (08:33)
[2018-04-29] MEDS: Vancomycin 25 MG/ML PO SCH ×3 (11:09→17:36)
[2018-04-29] MEDS: Petrolatum-Mineral Oil Oint (100gm) TOP SCH ×2 (11:10→21:20)
[2018-04-29] MEDS: Nystatin 100,000 Units/gm Topical Pow(15 gm) TOP SCH ×2 (11:11→17:42)
--- NOTE | 2018-04-29 11:40 | CP.PCM.PN ---
<Nhung Anne - Last Filed: 04/29/18 11:36> Subjective - Date & Time of Evaluation Date of Evaluation: 04/29/18 Time of Evaluation: 09:30 - Subjective Subjective: Nhung Anne PGY1 Hospital Progress Note Patient seen and examined at bedside this morning. Admits to one episode of loose BM this morning and a total of three loose BM yesterday. Patient continues to have fecal incontinence, agrees with use of rectal tube. Offers no new complaints today. Objective - Vital Signs/Intake and Output Vital Signs (last 24 hours): Temp Pulse Resp BP Pulse Ox 98 F 60 20 100/64 97 04/29/18 06:00 04/29/18 06:00 04/29/18 06:00 04/29/18 06:00 04/29/18 06:00 - Medications Medications: Current Medications Acetaminophen (Tylenol 325mg Tab) 650 mg PO Q6 PRN PRN Reason: Fever >100.4 F Last Admin: 04/13/18 05:56 Dose: 650 mg Albuterol/Ipratropium (Duoneb 3 Mg/0.5 Mg (3 Ml) Ud) 3 ml IH [id number] [facility]KAYLA Last Admin: 04/29/18 07:24 Dose: 3 ml Albuterol/Ipratropium (Duoneb 3 Mg/0.5 Mg (3 Ml) Ud) 3 ml IH Q2H PRN PRN Reason: Shortness of Breath Last Admin: 04/21/18 00:50 Dose: 3 ml Alprazolam (Xanax) 0.25 mg PO TID PRN; Protocol PRN Reason: Anxiety Last Admin: 04/28/18 18:29 Dose: 0.25 mg Benzonatate (Tessalon Perles) 100 mg PO TID PRN PRN Reason: Cough Last Admin: 04/25/18 15:43 Dose: 100 mg Darbepoetin Fletcher (Aranesp) 200 mcg IVP QWK [facility] Ergocalciferol (Drisdol 50,000 Intl Units Cap) 1 cap PO Q7D [facility] Last Admin: 04/29/18 08:33 Dose: 1 cap Fluoxetine HCl (Prozac) 20 mg PO DAILY [facility] Heparin Sodium (Porcine) (Heparin) 5,000 units SC Q8 [facility]; Protocol Last Admin: 04/28/18 21:57 Dose: 5,000 units Heparin Sodium (Porcine) (Heparin) 2,000 units IVP [facility]; Protocol Last Admin: 04/25/18 12:25 Dose: 2,000 units Iron Sucrose 100 mg/ Sodium (Chloride) 105 mls @ 210 mls/hr IVPB QWK [facility] Stop: 05/18/18 10:29 Last Admin: 04/27/18 11:13 Dose: 210 mls/hr Midodrine (Proamatine) 10 mg PO [facility] Last Admin: 04/27/18 12:14 Dose: 10 mg Multi-Ingredient Ointment (Hydrophor Oint) 0 gm TOP Q12 [facility] Last Admin: 04/29/18 11:10 Dose: 1 appl Nystatin (Nystop Topical Powder) 0 gm TOP BID [facility] Last Admin: 04/29/18 11:11 Dose: 1 appl Pantoprazole Sodium (Protonix Ec Tab) 40 mg PO 0600,1600 [facility] Last Admin: 04/29/18 05:36 Dose: 40 mg Spironolactone (Aldactone) 50 mg PO DAILY [facility] Stop: 05/25/18 10:01 Last Admin: 04/29/18 11:10 Dose: 50 mg Vancomycin HCl (Vancocin 25 Mg/Ml (Oral Use)) 125 mg PO QID [facility]; Protocol Stop: 05/04/18 14:00 Last Admin: 04/29/18 11:09 Dose: 125 mg Vitamin B Complex/Vit C/Folic Acid (Nephro-Bhupinder) 1 tab PO 0800 [facility] Last Admin: 04/29/18 08:30 Dose: 1 tab Zolpidem Tartrate (Ambien) 10 mg PO HS [facility]; Protocol - Labs Labs: 04/28/18 06:30 04/28/18 06:30 PT 13.2 SECONDS (9.4-12.5) H 04/03/18 15:44 INR 1.15 04/03/18 15:44 APTT 30.7 Seconds (25.1-36.5) 04/03/18 15:44 - Psychiatric Exam Additional comments: - Constitutional Appears: No Acute Distress - Head Exam Head Exam: NORMAL INSPECTION, ATRAUMATIC - Eye Exam Eye Exam: EOMI, PERRL - ENT Exam ENT Exam: Mucous Membranes Moist, Normal Exam - Neck Exam Neck exam: Positive for: Normal Inspection - Respiratory Exam Respiratory Exam: Clear to Auscultation Bilateral. absent: Rales, Rhonchi, Wheezes, respiratory distress - Cardiovascular Exam Cardiovascular Exam: Regular rhythm, +S1, +S2. absent: Systolic Murmur - GI/Abdominal Exam GI & Abdominal Exam: Soft. Bowel sounds heard in all 4 quadrants absent: Distended, Guarding, Rebound, Tenderness - Extremities Exam Extremities exam: Positive for: pedal edema Additional comments: Skin Exam Skin exam: stage 1-2 ulcer on the right thigh, non draining/bleeding/pus Assessment and Plan - Assessment and Plan (Free Text) Assessment: Patient is a 52 yo F with past medical history liver failure, morbid obesity, and EtOH abuse presents to [facility] for worsening weakness and admitted for management of anemia and FELIPE with metabolic acidosis. Focusing on outpatient HD placement and PT at this time. Psych put on consult for depressed mood. Will get blood work every other day. Plan: C. Diff -cdiff antigen and toxin positive -PO vancomycine day 6 out of 10 -continues to have fecal incontinence, multiples episodes of loose BM. Consents to use of rectal tube -leukocytosis downtrending, afebrile -contact precautions Depression -Psych on consult, Dr. Ramos -continue xanax prn, prozac and ambien Acute renal failure - improved -on HD MWF -Working with business case analyst for outpatient HD setup, working on placement; awaiting approval -will get blood work every other day -Renal US is unremarkable -Renagel 800 mg PO TID -Strict I's and O's -Nephrology on consult, Dr. Salmeron Chronic lymphedema of B/L legs -podiatry on consult, no further recommendations, local wound care for now - not currently draining/weeping -repeat ext US shows possible right SFA occlusive disease, limited study due to artifact -wound culture grew Enterobacter Cloacae, E. faecalis - superficial bacteria colonizers -PT recommends [facility] -daily PT rehab Microcytic anemia -s/p total 11 units pRBCs, 2 FFPs -oral iron started -endoscopy showed 3 non bleeding gastric ulcers, largest one 8mm -iron studies shows likely iron deficiency -Head CT unremarkable -CTAP shows adenopathy of the hepatic gastric ligament -GI on consult, Dr. Melo Fever - resolved -afebrile, no WBC -positive flu type A, completed course of tamiflu -completed course of merrem for UTI with klebsiella -CXR showed moderate cardiomegaly, vascular congestion -blood culture shows no growth after 5 days Elevated BNP -BNP 56864 on admission -Echo showed EF of 68%, mild TR/MR, mild pulm HTN, borderline LVH PPX/Diet -protonix, heparin -renal, fiber diet Patient seen and case discussed with attending, Dr. Ojeda <Sagrario Ojeda - Last Filed: 04/29/18 13:42> Objective - Vital Signs/Intake and Output Vital Signs (last 24 hours): Temp Pulse Resp BP Pulse Ox 98 F 60 20 100/64 97 04/29/18 06:00 04/29/18 06:00 04/29/18 06:00 04/29/18 06:00 04/29/18 06:00 - Medications Medications: Current Medications Acetaminophen (Tylenol 325mg Tab) 650 mg PO Q6 PRN PRN Reason: Fever >100.4 F Last Admin: 04/13/18 05:56 Dose: 650 mg Albuterol/Ipratropium (Duoneb 3 Mg/0.5 Mg (3 Ml) Ud) 3 ml IH [id number] Last Admin: 04/29/18 13:24 Dose: 3 ml Albuterol/Ipratropium (Duoneb 3 Mg/0.5 Mg (3 Ml) Ud) 3 ml IH Q2H PRN PRN Reason: Shortness of Breath Last Admin: 04/21/18 00:50 Dose: 3 ml Alprazolam (Xanax) 0.25 mg PO TID PRN; Protocol PRN Reason: Anxiety Last Admin: 04/28/18 18:29 Dose: 0.25 mg Benzonatate (Tessalon Perles) 100 mg PO TID PRN PRN Reason: Cough Last Admin: 04/25/18 15:43 Dose: 100 mg Darbepoetin Fletcher (Aranesp) 200 mcg IVP QWK [facility] Ergocalciferol (Drisdol 50,000 Intl Units Cap) 1 cap PO Q7D [facility] Last Admin: 04/29/18 08:33 Dose: 1 cap Fluoxetine HCl (Prozac) 20 mg PO DAILY [facility] Heparin Sodium (Porcine) (Heparin) 5,000 units SC Q8 [facility]; Protocol Last Admin: 04/28/18 21:57 Dose: 5,000 units Heparin Sodium (Porcine) (Heparin) 2,000 units IVP [facility]; Protocol Last Admin: 04/25/18 12:25 Dose: 2,000 units Iron Sucrose 100 mg/ Sodium (Chloride) 105 mls @ 210 mls/hr IVPB QWK [facility] Stop: 05/18/18 10:29 Last Admin: 04/27/18 11:13 Dose: 210 mls/hr Midodrine (Proamatine) 10 mg PO MWF [facility] Last Admin: 04/27/18 12:14 Dose: 10 mg Multi-Ingredient Ointment (Hydrophor Oint) 0 gm TOP Q12 [facility] Last Admin: 04/29/18 11:10 Dose: 1 appl Nystatin (Nystop Topical Powder) 0 gm TOP BID [facility] Last Admin: 04/29/18 11:11 Dose: 1 appl Pantoprazole Sodium (Protonix Ec Tab) 40 mg PO 0600,1600 [facility] Last Admin: 04/29/18 05:36 Dose: 40 mg Spironolactone (Aldactone) 50 mg PO DAILY [facility] Stop: 05/25/18 10:01 Last Admin: 04/29/18 11:10 Dose: 50 mg Vancomycin HCl (Vancocin 25 Mg/Ml (Oral Use)) 125 mg PO QID [facility]; Protocol Stop: 05/04/18 14:00 Last Admin: 04/29/18 11:09 Dose: 125 mg Vitamin B Complex/Vit C/Folic Acid (Nephro-Bhupinder) 1 tab PO 0800 [facility] Last Admin: 04/29/18 08:30 Dose: 1 tab Zolpidem Tartrate (Ambien) 10 mg PO HS [facility]; Protocol - Labs Labs: 04/28/18 06:30 04/28/18 06:30 PT 13.2 SECONDS (9.4-12.5) H 04/03/18 15:44 INR 1.15 04/03/18 15:44 APTT 30.7 Seconds (25.1-36.5) 04/03/18 15:44 Attending/Attestation - Attestation I have personally seen and examined this patient.: Yes I have fully participated in the care of the patient.: Yes I have reviewed all pertinent clinical information, including history, physical exam and plan: Yes Notes (Text): 04/29/18 13:40 Medical record note made by the resident after discussion with my direction and input after the patient was personally seen and examined by me. I have reviewed the chart and agree that the record accurately reflects by personal performance of the history, physical exam, data review, and medical decision-making, in the course for the patient. I have also personally directed the plan of care. 52 year old female with past medical history of liver failure, alcohol abuse, depression and gastric bypass surgery who presented with complaint of generalized weakness, fatigue and dark stools. She was found to have acute microcytic anemia and severe metabolic acidosis with acute renal failure. She is s/p multiple PRBC transfusions. She is s/p EGD which showed multiple gastric ulcers.Patient is also SP treatment for Influenza . Patient developed diarrhea this week and is found to have C diff colitis. C diff colitis. Diarrhea is improving, on oral Vancomycin day # 6 Anemia.She is on protonix and H/H has been stable. ESRD . Patient is on hemodialysis 3 times a week MWF.Nephrology is following PT has recommended [facility] ,Patient is awaiting placement. Management plan was discussed in detail with patient. Education was provided. 04/29/18 13:41
--- NOTE | 2018-04-29 12:48 | CP.PCM.PN ---
Subjective - Date & Time of Evaluation Date of Evaluation: 04/29/18 Time of Evaluation: 12:47 - Subjective Subjective: Nephrology Consultation Note: Assessment: stable oligoanuric Acute Kidney Injury (N17.9) likely due to ATN, pre-renal state, intrasvasc hypovolemia, impaired renal perfusion, HD 04/05/18: first session anasarca severe symptomatic anemia due to GI bleed with gastric ulcers mild hyperkalemia and HAGMA, hyperphos hx of cirrhosis and etoh intra-ab lymphadenopathy morbid obesity acute influenza C diff colitis Plan HD tolerated well so far, on MWF schedule. 24 hr crcl: 6 and volume 200 mL. Maintain hemodynamics stable. Avoid hypotension. Patient not on ACEI/ARB due to recent FELIPE. added midodrine pre HD Monitor Input/Output, daily weights and renal function with basic metabolic panel held phos binders due to diarrhoea PRBC as needed. s/p 1 gram IV iron, now on weekly aranesp/IV iron GI consult, pt on PPI work up for FELIPE and anemia as ordered. GN work up neg hence will defer kidney biopsy. also pt with liver disease and morbidly obese. started weekly vit d consider further work up for ascites. started on aldactone 50 mg/d to reduce portal HTN on antibiotics for c.diff Dose meds/antibiotics for reduced GFR. Avoid fleets enema/magnesium based laxatives. Avoid nephrotoxins/NSAIDs/ iodinated contrast (unless needed emergen tly) Glycemic control Further work up/management as per primary team she is arranged for outpt HD. Av access will be planned later as outpt if no renal recovery in 3 months Thanks for allowing me to participate in care of your patient. Will follow patient with you. Please call if any Qs. had d/w team Dr Kenji Salmeron Office: [phone] Chief Complaint; fatigue Reason for consult: Acute Kidney Injury HPI: Pt is a 52 F with hx of alcoholism in past, cirrhosis (pt states got better on its own in past) but no regular follow up with PMD presented with complaints of fatigue and tiredness for last few days, found to have severe anemia and FELIPE Denies OTC/herbal meds but NSAIDs as alleve for last few days No recent iodinated contrast exposure. Noted obvious episodes of low BP. reports chronic leg swelling but more now denies smoking or etoh now ROS: c/o swelling in leg. had gastric ulcers on EGD Cardiovascular: No chest pain. Pulmonary: improved shortness of breath but with cough Gastrointestinal: denies abdominal pain No nausea. No vomiting. had loose stool multiple episodes Genitourinary: not much UOP All other negative except as mentioned in HPI feels sad that she is still bed-bound Physical Examination: General Appearance: Comfortable, in no acute respiratory distress, co-operative . morbid obese Vitals reviewed and noted as below Head; Atraumatic, normocephalic ENT: no ulcers no thrush. Tongue is midline. Oropharynx: no rash or ulcers. EYES: Pupils are equal, round and reactive to light accommodation. Eye muscles and extraocular movement intact. Sclera is anicteric. Neck; supple no lymphadenopathy, no thyromegaly or bruit Lungs: Normal respiratory rate/effort. Breath sounds bilateral clear Heart: Normal rate. s1s2 normal. No rub or gallop. Extremities: 2-3+ edema. Neurological: Patient is alert, awake and oriented to person, place and time. No focal deficit. Strength bilateral appropriate and equal Skin: Warm and dry. Normal turgor. spider angioma rash upper chest. Palpitation: Normal elasticity for age Abdomen: Abdomen is soft. Bowel sounds +. There is no abdominal tenderness, no guarding/rigidity no organomegaly. limited due to obesity and abd wall edema Psych: normal insight and flat affect/mood MSK: no joint tenderness or swelling. Digits and nails normal, no deformity : kidney or bladder not palpable. has access as permacath Labs/imaging reviewed. Past medical history, past surgical history, family history, social history, allergy reviewed and noted as below Family hx: no hx of CKD. Rest non-contributory fena 0.3% intra-ab lymphadenopathy Objective - Vital Signs/Intake and Output Vital Signs (last 24 hours): Temp Pulse Resp BP Pulse Ox 98 F 60 20 100/64 97 04/29/18 06:00 04/29/18 06:00 04/29/18 06:00 04/29/18 06:00 04/29/18 06:00 - Medications Medications: Current Medications Acetaminophen (Tylenol 325mg Tab) 650 mg PO Q6 PRN PRN Reason: Fever >100.4 F Last Admin: 04/13/18 05:56 Dose: 650 mg Albuterol/Ipratropium (Duoneb 3 Mg/0.5 Mg (3 Ml) Ud) 3 ml IH [id number] [facility] Last Admin: 04/29/18 07:24 Dose: 3 ml Albuterol/Ipratropium (Duoneb 3 Mg/0.5 Mg (3 Ml) Ud) 3 ml IH Q2H PRN PRN Reason: Shortness of Breath Last Admin: 04/21/18 00:50 Dose: 3 ml Alprazolam (Xanax) 0.25 mg PO TID PRN; Protocol PRN Reason: Anxiety Last Admin: 04/28/18 18:29 Dose: 0.25 mg Benzonatate (Tessalon Perles) 100 mg PO TID PRN PRN Reason: Cough Last Admin: 04/25/18 15:43 Dose: 100 mg Darbepoetin Fletcher (Aranesp) 200 mcg IVP QWK [facility] Ergocalciferol (Drisdol 50,000 Intl Units Cap) 1 cap PO Q7D [facility] Last Admin: 04/29/18 08:33 Dose: 1 cap Fluoxetine HCl (Prozac) 20 mg PO DAILY [facility] Heparin Sodium (Porcine) (Heparin) 5,000 units SC Q8 [facility]; Protocol Last Admin: 04/28/18 21:57 Dose: 5,000 units Heparin Sodium (Porcine) (Heparin) 2,000 units IVP MWF [facility]; Protocol Last Admin: 04/25/18 12:25 Dose: 2,000 units Iron Sucrose 100 mg/ Sodium (Chloride) 105 mls @ 210 mls/hr IVPB QWK [facility] Stop: 05/18/18 10:29 Last Admin: 04/27/18 11:13 Dose: 210 mls/hr Midodrine (Proamatine) 10 mg PO MWF [facility] Last Admin: 04/27/18 12:14 Dose: 10 mg Multi-Ingredient Ointment (Hydrophor Oint) 0 gm TOP Q12 [facility] Last Admin: 04/29/18 11:10 Dose: 1 appl Nystatin (Nystop Topical Powder) 0 gm TOP BID [facility] Last Admin: 04/29/18 11:11 Dose: 1 appl Pantoprazole Sodium (Protonix Ec Tab) 40 mg PO 0600,1600 [facility] Last Admin: 04/29/18 05:36 Dose: 40 mg Spironolactone (Aldactone) 50 mg PO DAILY [facility] Stop: 05/25/18 10:01 Last Admin: 04/29/18 11:10 Dose: 50 mg Vancomycin HCl (Vancocin 25 Mg/Ml (Oral Use)) 125 mg PO QID [facility]; Protocol Stop: 05/04/18 14:00 Last Admin: 04/29/18 11:09 Dose: 125 mg Vitamin B Complex/Vit C/Folic Acid (Nephro-Bhupinder) 1 tab PO 0800 [facility] Last Admin: 04/29/18 08:30 Dose: 1 tab Zolpidem Tartrate (Ambien) 10 mg PO HS [facility]; Protocol - Labs Labs: 04/28/18 06:30 04/28/18 06:30 PT 13.2 SECONDS (9.4-12.5) H 04/03/18 15:44 INR 1.15 04/03/18 15:44 APTT 30.7 Seconds (25.1-36.5) 04/03/18 15:44
--- NOTE | 2018-04-29 13:47 | CON ---
DATE: 04/29/2018 HISTORY OF PRESENT ILLNESS: The patient is a 52-year-old female who Psychiatry is following up because of depression and anxiety which has appeared to improve with the initiation of Prozac, Ambien, and Xanax. I reviewed Dr. Maradiaga's consultations and met with the patient at bedside. The patient continues to be depressed and feels very frustrated with the of her hospitalization. At times, she feels that it is hopeless; however, she denies that she has any active thoughts of ending her life and, in fact, she wants the circumstances of her medical condition to improve, so she can live life to its fullest. The patient is tolerating her current medications. She feels the Xanax has been helping for anxiety. She still has some sleepless nights and this is also contributing to her low frustration tolerance and low mood and lack of energy. The patient is not hallucinating. She is in fair control. There have been no major behavioral issues. Insight and judgement are fair. Vital signs and labs were reviewed. MEDICATIONS: Include Xanax 0.25 three times daily, Prozac 10 mg daily, Ambien at bedtime. IMPRESSION: Mood disorder due to general medical condition, rule out major depressive disorder and anxiety disorder. PLAN: We will increase to 20 mg daily. Continue Xanax and increase Ambien to help with sleep at night. Psychiatry will continue to follow up with the patient. Next followup will be on 05/01/2018, by Dr. Maradiaga. Kaya Saxena MD
--- NOTE | 2018-04-29 14:48 | PN ---
DATE: 04/29/2018 SUBJECTIVE: The patient is in bed in no acute distress. Nontoxic. PHYSICAL EXAMINATION: VITAL SIGNS: Temperature is 98, blood pressure 100/60, respiratory rate of 20. HEENT: Unremarkable. NECK: Supple. LUNGS: Decreased breath sounds. HEART: Normal S1 and S2. ABDOMEN: Soft. LABORATORY DATA: Revealed a white count of 9.7 and creatinine is 2.8. ASSESSMENT AND PLAN: This is a 52-year-old female with pseudomembranous colitis, on day #6 of vancomycin, would complete 10 to 14 days. Review of orders revealed the vancomycin oral is still active. Orion Thompson MD
[2018-04-30] MEDS: Albuterol-Ipratrop 3 mg / 0.5 (3 ml) UD IH SCH ×4 (02:28→20:45)
[2018-04-30] MEDS: Pantoprazole 40 mg EC Tab PO SCH ×2 (05:15→17:23)
[2018-04-30 07:08] LABS: BASO # 0.04 K/mm3 (0.0-2.0); BASO % 0.4 % (0.0-3.0); EOS # 0.5 (0.0-0.7); EOS % 5.3 % (1.5-5.0); GRAN # 6.68 (1.4-6.5); GRAN % 73.8 % (50.0-68.0); LYMPH # 1.1 (1.2-3.4); LYMPH % 11.6 % (22.0-35.0); MEAN CORPUSCULAR HEMOGLOBIN 27.5 pg (25.0-35.0); MEAN CORPUSCULAR HGB CONC 30.9 g/dl (31.0-37.0); MEAN PLATELET VOLUME 8.4 fl (7.0-11.0); MONO # 0.8 (0.1-0.6); MONO % 8.9 % (1.0-6.0); RBC 3.27 10^6/uL (3.5-6.1); RED CELL DISTRIBUTION WIDTH 19.4 % (11.5-14.5); WHITE BLOOD COUNT 9.1 10^3/uL (4.5-11.0)
[2018-04-30 07:31] LABS: ALB/GLOB RATIO 0.6 (1.1-1.8); ALBUMIN 2.1 g/dL (3.0-4.8)
[2018-04-30] MEDS ORDERED: Vancomycin 25 MG/ML PO SCH (10:00)
[2018-04-30] MEDS: Multivitamin Vitamin B Complex (Nephro-Vite) Tab PO SCH (11:37)
[2018-04-30] MEDS: Petrolatum-Mineral Oil Oint (100gm) TOP SCH ×2 (11:37→22:00)
[2018-04-30] MEDS: Nystatin 100,000 Units/gm Topical Pow(15 gm) TOP SCH (11:38)
--- NOTE | 2018-04-30 12:29 | CP.PCM.PN ---
<Robina Garrett - Last Filed: 04/30/18 16:45> Subjective - Date & Time of Evaluation Date of Evaluation: 04/30/18 Time of Evaluation: 12:18 - Subjective Subjective: Robina Garrett, PGY-1 Medicine Progress Note for Dr. Ross Pt was seen and examined this AM at bedside. Pt states that she had not had any additional diarrhea since 6:30 pm yesterday. She states that she was able to sleep through the night and had no acute events. She also states that she is tolerating her diet and is not having any abdominal pain. She denies fevers, chills, cp, sob, cough, abd pain, n/v, c/d, or dysuria. Objective - Vital Signs/Intake and Output Vital Signs (last 24 hours): Temp Pulse Resp BP Pulse Ox 98.3 F 90 20 109/61 98 04/30/18 06:00 04/30/18 06:00 04/30/18 06:00 04/30/18 06:00 04/30/18 06:00 - Medications Medications: Current Medications Acetaminophen (Tylenol 325mg Tab) 650 mg PO Q6 PRN PRN Reason: Fever >100.4 F Last Admin: 04/13/18 05:56 Dose: 650 mg Albuterol/Ipratropium (Duoneb 3 Mg/0.5 Mg (3 Ml) Ud) 3 ml IH [id number] [facility] Last Admin: 04/30/18 08:23 Dose: 3 ml Albuterol/Ipratropium (Duoneb 3 Mg/0.5 Mg (3 Ml) Ud) 3 ml IH Q2H PRN PRN Reason: Shortness of Breath Last Admin: 04/21/18 00:50 Dose: 3 ml Alprazolam (Xanax) 0.25 mg PO TID PRN; Protocol PRN Reason: Anxiety Last Admin: 04/28/18 18:29 Dose: 0.25 mg Benzonatate (Tessalon Perles) 100 mg PO TID PRN PRN Reason: Cough Last Admin: 04/25/18 15:43 Dose: 100 mg Darbepoetin Fletcher (Aranesp) 200 mcg IVP QWK [facility] Last Admin: 04/30/18 09:36 Dose: 200 mcg Ergocalciferol (Drisdol 50,000 Intl Units Cap) 1 cap PO Q7D [facility] Last Admin: 04/29/18 08:33 Dose: 1 cap Fluoxetine HCl (Prozac) 20 mg PO DAILY [facility] Last Admin: 04/30/18 11:39 Dose: Not Given Heparin Sodium (Porcine) (Heparin) 5,000 units SC Q8 [facility]; Protocol Last Admin: 04/30/18 05:15 Dose: 5,000 units Heparin Sodium (Porcine) (Heparin) 2,000 units IVP MWF [facility]; Protocol Last Admin: 04/30/18 09:37 Dose: 2,000 units Iron Sucrose 100 mg/ Sodium (Chloride) 105 mls @ 210 mls/hr IVPB QWK [facility] Stop: 05/18/18 10:29 Last Admin: 04/27/18 11:13 Dose: 210 mls/hr Metronidazole (Flagyl) 500 mg PO TID [facility]; Protocol Stop: 05/07/18 14:01 Midodrine (Proamatine) 10 mg PO MWF [facility] Last Admin: 04/30/18 11:38 Dose: Not Given Multi-Ingredient Ointment (Hydrophor Oint) 0 gm TOP Q12 [facility] Last Admin: 04/30/18 11:37 Dose: Not Given Pantoprazole Sodium (Protonix Ec Tab) 40 mg PO 0600,1600 [facility] Last Admin: 04/30/18 05:15 Dose: 40 mg Spironolactone (Aldactone) 50 mg PO DAILY [facility] Stop: 05/25/18 10:01 Last Admin: 04/30/18 11:37 Dose: Not Given Vancomycin HCl (Vancocin 25 Mg/Ml (Oral Use)) 250 mg PO QID [facility]; Protocol Vitamin B Complex/Vit C/Folic Acid (Nephro-Bhupinder) 1 tab PO 0800 [facility] Last Admin: 04/30/18 11:37 Dose: Not Given Zolpidem Tartrate (Ambien) 10 mg PO HS [facility]; Protocol Last Admin: 04/29/18 21:18 Dose: 10 mg - Labs Labs: 04/30/18 06:50 04/30/18 06:50 PT 13.2 SECONDS (9.4-12.5) H 04/03/18 15:44 INR 1.15 04/03/18 15:44 APTT 30.7 Seconds (25.1-36.5) 04/03/18 15:44 - Constitutional Appears: Non-toxic, No Acute Distress - Head Exam Head Exam: ATRAUMATIC, NORMAL INSPECTION, NORMOCEPHALIC - Eye Exam Eye Exam: EOMI, Normal appearance, PERRL - Respiratory Exam Respiratory Exam: Clear to Ausculation Bilateral, NORMAL BREATHING PATTERN. absent: Accessory Muscle Use, Decreased Breath Sounds, Rales, Rhonchi, Wheezes, Respiratory Distress, Stridor - Cardiovascular Exam Cardiovascular Exam: RRR, +S1, +S2. absent: Rubs, Murmur - GI/Abdominal Exam GI & Abdominal Exam: Soft, Normal Bowel Sounds. absent: Distended, Firm, Guarding, Rigid, Tenderness - Extremities Exam Extremities Exam: Normal Capillary Refill, Pedal Edema (3+ pitting edema, ). absent: Calf Tenderness, Joint Swelling - Back Exam Back Exam: NORMAL INSPECTION. absent: CVA tenderness (L), CVA tenderness (R) - Neurological Exam Neurological Exam: Alert, Awake, Oriented x3 - Psychiatric Exam Psychiatric exam: Normal Affect, Normal Mood - Skin Additional comments: Stage 1-2 ulcer on the right thigh, non draining/bleeding/pus Assessment and Plan - Assessment and Plan (Free Text) Assessment: Pt is a 52 yo F with past medical history liver failure, morbid obesity, and EtOH abuse presents to [facility] for worsening weakness and admitted for management of anemia and FELIPE with metabolic acidosis. Focusing on outpatient HD placement and PT at this time. Pt is awaiting placement for HD center and [facility]. Plan: 1) C. Diff - C. diff antigen and toxin positive - PO vancomycin day 6 out of 10 - had one episode of watery diarrhea last night at 6:30pm and has not had one since - Leukocytosis - resolved, WBC now wnl - contact precautions 2) Depression -Psych on consult, Dr. Ramos -continue xanax prn, prozac and ambien 3) Acute renal failure - improved - on HD MWF - Had HD today - Working with caser up for outpatient HD setup, working on placement - will get blood work every other day - Renal US is unremarkable - Strict I's and O's - Nephrology on consult, Dr. Salmeron, recs appreciated 4) Chronic lymphedema of B/L legs - Improving - Pt states improvement after multiple HD sessions - podiatry on consult, no further recommendations, local wound care for now - not currently draining/weeping - repeat ext US shows possible right SFA occlusive disease, limited study due to artifact - wound culture grew Enterobacter Cloacae, E. faecalis - superficial bacteria colonizers - PT recommends [facility] - daily PT rehab 5) Microcytic anemia - s/p total 11 units pRBCs, 2 FFPs - oral iron started - endoscopy showed 3 non bleeding gastric ulcers, largest one 8mm - Iron studies shows likely iron deficiency - Head CT unremarkable - CTAP shows adenopathy of the hepatic gastric ligament - GI on consult, Dr. Melo - recs appreciated 6) Fever - resolved -afebrile, no WBC -positive flu type A, completed course of tamiflu -completed course of merrem for UTI with klebsiella -CXR showed moderate cardiomegaly, vascular congestion -blood culture shows no growth after 5 days 7) Elevated BNP -BNP 60431 on admission -Echo showed EF of 68%, mild TR/MR, mild pulm HTN, borderline LVH PPX/Diet -protonix, heparin -renal, fiber diet Patient seen and case discussed with attending, Dr. Cody Garrett, PGY-1 <Miko Ross - Last Filed: 04/30/18 17:38> Objective - Vital Signs/Intake and Output Vital Signs (last 24 hours): Temp Pulse Resp BP Pulse Ox 98.8 F 81 18 103/50 L 98 04/30/18 12:44 04/30/18 12:44 04/30/18 12:44 04/30/18 12:44 04/30/18 12:44 - Medications Medications: Current Medications Acetaminophen (Tylenol 325mg Tab) 650 mg PO Q6 PRN PRN Reason: Fever >100.4 F Last Admin: 04/13/18 05:56 Dose: 650 mg Albuterol/Ipratropium (Duoneb 3 Mg/0.5 Mg (3 Ml) Ud) 3 ml IH [id number] [facility] Last Admin: 04/30/18 14:35 Dose: 3 ml Albuterol/Ipratropium (Duoneb 3 Mg/0.5 Mg (3 Ml) Ud) 3 ml IH Q2H PRN PRN Reason: Shortness of Breath Last Admin: 04/21/18 00:50 Dose: 3 ml Alprazolam (Xanax) 0.25 mg PO TID PRN; Protocol PRN Reason: Anxiety Last Admin: 04/30/18 15:05 Dose: 0.25 mg Benzonatate (Tessalon Perles) 100 mg PO TID PRN PRN Reason: Cough Last Admin: 04/25/18 15:43 Dose: 100 mg Darbepoetin Fletcher (Aranesp) 200 mcg IVP QWK [facility] Last Admin: 04/30/18 09:36 Dose: 200 mcg Ergocalciferol (Drisdol 50,000 Intl Units Cap) 1 cap PO Q7D [facility] Last Admin: 04/29/18 08:33 Dose: 1 cap Fluoxetine HCl (Prozac) 20 mg PO DAILY [facility] Last Admin: 04/30/18 11:39 Dose: Not Given Heparin Sodium (Porcine) (Heparin) 5,000 units SC Q8 [facility]; Protocol Last Admin: 04/30/18 15:02 Dose: 5,000 units Heparin Sodium (Porcine) (Heparin) 2,000 units IVP MWF [facility]; Protocol Last Admin: 04/30/18 09:37 Dose: 2,000 units Iron Sucrose 100 mg/ Sodium (Chloride) 105 mls @ 210 mls/hr IVPB QWK [facility] Stop: 05/18/18 10:29 Last Admin: 04/27/18 11:13 Dose: 210 mls/hr Metronidazole (Flagyl) 500 mg PO TID [facility]; Protocol Stop: 05/07/18 14:01 Last Admin: 04/30/18 15:03 Dose: 500 mg Midodrine (Proamatine) 10 mg PO MWF [facility] Last Admin: 04/30/18 11:38 Dose: Not Given Multi-Ingredient Ointment (Hydrophor Oint) 0 gm TOP Q12 [facility] Last Admin: 04/30/18 11:37 Dose: Not Given Pantoprazole Sodium (Protonix Ec Tab) 40 mg PO 0600,1600 [facility] Last Admin: 04/30/18 17:23 Dose: 40 mg Spironolactone (Aldactone) 50 mg PO DAILY [facility] Stop: 05/25/18 10:01 Last Admin: 04/30/18 11:37 Dose: Not Given Vancomycin HCl (Vancocin 25 Mg/Ml (Oral Use)) 250 mg PO QID [facility]; Protocol Last Admin: 04/30/18 15:02 Dose: 250 mg Vitamin B Complex/Vit C/Folic Acid (Nephro-Bhupinder) 1 tab PO 0800 [facility] Last Admin: 04/30/18 11:37 Dose: Not Given Zolpidem Tartrate (Ambien) 10 mg PO HS [facility]; Protocol Last Admin: 04/29/18 21:18 Dose: 10 mg - Labs Labs: 04/30/18 06:50 04/30/18 06:50 PT 13.2 SECONDS (9.4-12.5) H 04/03/18 15:44 INR 1.15 04/03/18 15:44 APTT 30.7 Seconds (25.1-36.5) 04/03/18 15:44 Attending/Attestation - Attestation I have personally seen and examined this patient.: Yes I have fully participated in the care of the patient.: Yes I have reviewed all pertinent clinical information, including history, physical exam and plan: Yes Notes (Text): 04/30/18 17:34 52 year old female with past medical history of liver failures and alcohol abuse who initially presented with weakness found to have anemia and FELIPE. GI workup included EGD which showed 3 non bleeding gastric ulcers. Patient is currently on iron and protonix. H/H has been stable. She has been started on hemodialysis. Nephrology is following. She is s/p treatment for flu and UTI. She is currently on vanco for CDIF. She reports diarrhea is improved today. She is currently pending [facility] placement and outpatient dialysis set up for d/c planning. Miko Ross MD Hospitalist.
[2018-04-30] MEDS: Vancomycin 25 MG/ML PO SCH ×3 (15:02→21:54)
--- NOTE | 2018-04-30 15:03 | CP.PCM.PN ---
Subjective - Date & Time of Evaluation Date of Evaluation: 04/30/18 Time of Evaluation: 15:01 - Subjective Subjective: Nephrology Consultation Note: Assessment: stable oligoanuric Acute Kidney Injury (N17.9) likely due to ATN, pre-renal state, intrasvasc hypovolemia, impaired renal perfusion, HD 04/05/18: first session. probably ESRD anasarca severe symptomatic anemia due to GI bleed with gastric ulcers mild hyperkalemia and HAGMA, hyperphos hx of cirrhosis and etoh intra-ab lymphadenopathy morbid obesity acute influenza C diff colitis Plan HD tolerated well so far, on MWF schedule. 24 hr crcl: 6 and volume 200 mL. no evidence of renal recovery yet. probably ESRD Maintain hemodynamics stable. Avoid hypotension. Patient not on ACEI/ARB due to recent FELIPE. added midodrine pre HD Monitor Input/Output, daily weights and renal function with basic metabolic panel held phos binders due to diarrhoea PRBC as needed. s/p 1 gram IV iron, now on weekly aranesp/IV iron GI consult, pt on PPI work up for FELIPE and anemia as ordered. GN work up neg hence will defer kidney biopsy. also pt with liver disease and morbidly obese. started weekly vit d consider further work up for ascites. started on aldactone 50 mg/d to reduce portal HTN on antibiotics for c.diff as d/w ID and primary team Dose meds/antibiotics for reduced GFR. Avoid fleets enema/magnesium based laxatives. Avoid nephrotoxins/NSAIDs/ iodinated contrast (unless needed emergently) Glycemic control Further work up/management as per primary team she is arranged for outpt HD. Thanks for allowing me to participate in care of your patient. Will follow patient with you. Please call if any Qs. had d/w team Dr Kenji Salmeron Office: [phone] Chief Complaint; fatigue Reason for consult: Acute Kidney Injury HPI: Pt is a 52 F with hx of alcoholism in past, cirrhosis (pt states got better on its own in past) but no regular follow up with PMD presented with complaints of fatigue and tiredness for last few days, found to have severe anemia and FELIPE Denies OTC/herbal meds but NSAIDs as alleve for last few days No recent iodinated contrast exposure. Noted obvious episodes of low BP. reports chronic leg swelling but more now denies smoking or etoh now ROS: c/o swelling in leg. had gastric ulcers on EGD Cardiovascular: No chest pain. Pulmonary: improved shortness of breath but with cough Gastrointestinal: denies abdominal pain No nausea. No vomiting. diarrhoea better Genitourinary: not much UOP All other negative except as mentioned in HPI feels sad that she is still bed-bound Physical Examination: General Appearance: Comfortable, in no acute respiratory distress, co-operative . morbid obese Vitals reviewed and noted as below Head; Atraumatic, normocephalic ENT: no ulcers no thrush. Tongue is midline. Oropharynx: no rash or ulcers. EYES: Pupils are equal, round and reactive to light accommodation. Eye muscles and extraocular movement intact. Sclera is anicteric. Neck; supple no lymphadenopathy, no thyromegaly or bruit Lungs: Normal respiratory rate/effort. Breath sounds bilateral clear Heart: Normal rate. s1s2 normal. No rub or gallop. Extremities: 2-3+ edema. Neurological: Patient is alert, awake and oriented to person, place and time. No focal deficit. Strength bilateral appropriate and equal Skin: Warm and dry. Normal turgor. spider angioma rash upper chest. Palpitation: Normal elasticity for age Abdomen: Abdomen is soft. Bowel sounds +. There is no abdominal tenderness, no guarding/rigidity no organomegaly. limited due to obesity and abd wall edema Psych: normal insight and flat affect/mood MSK: no joint tenderness or swelling. Digits and nails normal, no deformity : kidney or bladder not palpable. has access as permacath Labs/imaging reviewed. Past medical history, past surgical history, family history, social history, allergy reviewed and noted as below Family hx: no hx of CKD. Rest non-contributory fena 0.3% intra-ab lymphadenopathy Objective - Vital Signs/Intake and Output Vital Signs (last 24 hours): Temp Pulse Resp BP Pulse Ox 98.8 F 81 18 103/50 L 98 04/30/18 12:44 04/30/18 12:44 04/30/18 12:44 04/30/18 12:44 04/30/18 12:44 - Medications Medications: Current Medications Acetaminophen (Tylenol 325mg Tab) 650 mg PO Q6 PRN PRN Reason: Fever >100.4 F Last Admin: 04/13/18 05:56 Dose: 650 mg Albuterol/Ipratropium (Duoneb 3 Mg/0.5 Mg (3 Ml) Ud) 3 ml IH [id number] [facility] Last Admin: 04/30/18 14:35 Dose: 3 ml Albuterol/Ipratropium (Duoneb 3 Mg/0.5 Mg (3 Ml) Ud) 3 ml IH Q2H PRN PRN Reason: Shortness of Breath Last Admin: 04/21/18 00:50 Dose: 3 ml Alprazolam (Xanax) 0.25 mg PO TID PRN; Protocol PRN Reason: Anxiety Last Admin: 04/28/18 18:29 Dose: 0.25 mg Benzonatate (Tessalon Perles) 100 mg PO TID PRN PRN Reason: Cough Last Admin: 04/25/18 15:43 Dose: 100 mg Darbepoetin Fletcher (Aranesp) 200 mcg IVP QWK [facility] Last Admin: 04/30/18 09:36 Dose: 200 mcg Ergocalciferol (Drisdol 50,000 Intl Units Cap) 1 cap PO Q7D [facility] Last Admin: 04/29/18 08:33 Dose: 1 cap Fluoxetine HCl (Prozac) 20 mg PO DAILY [facility] Last Admin: 04/30/18 11:39 Dose: Not Given Heparin Sodium (Porcine) (Heparin) 5,000 units SC Q8 [facility]; Protocol Last Admin: 04/30/18 05:15 Dose: 5,000 units Heparin Sodium (Porcine) (Heparin) 2,000 units IVP MWF [facility]; Protocol Last Admin: 04/30/18 09:37 Dose: 2,000 units Iron Sucrose 100 mg/ Sodium (Chloride) 105 mls @ 210 mls/hr IVPB QWK [facility] Stop: 05/18/18 10:29 Last Admin: 04/27/18 11:13 Dose: 210 mls/hr Metronidazole (Flagyl) 500 mg PO TID [facility]; Protocol Stop: 05/07/18 14:01 Midodrine (Proamatine) 10 mg PO MWF [facility] Last Admin: 04/30/18 11:38 Dose: Not Given Multi-Ingredient Ointment (Hydrophor Oint) 0 gm TOP Q12 [facility] Last Admin: 04/30/18 11:37 Dose: Not Given Pantoprazole Sodium (Protonix Ec Tab) 40 mg PO 0600,1600 [facility] Last Admin: 04/30/18 05:15 Dose: 40 mg Spironolactone (Aldactone) 50 mg PO DAILY [facility] Stop: 05/25/18 10:01 Last Admin: 04/30/18 11:37 Dose: Not Given Vancomycin HCl (Vancocin 25 Mg/Ml (Oral Use)) 250 mg PO QID [facility]; Protocol Vitamin B Complex/Vit C/Folic Acid (Nephro-Bhupinder) 1 tab PO 0800 [facility] Last Admin: 04/30/18 11:37 Dose: Not Given Zolpidem Tartrate (Ambien) 10 mg PO HS [facility]; Protocol Last Admin: 04/29/18 21:18 Dose: 10 mg - Labs Labs: 04/30/18 06:50 04/30/18 06:50 PT 13.2 SECONDS (9.4-12.5) H 04/03/18 15:44 INR 1.15 04/03/18 15:44 APTT 30.7 Seconds (25.1-36.5) 04/03/18 15:44
--- NOTE | 2018-04-30 15:55 | CP.PCM.PN ---
Subjective - Date & Time of Evaluation Date of Evaluation: 04/30/18 Time of Evaluation: 09:10 - Subjective Subjective: Comfortable, not in distress. Objective - Vital Signs/Intake and Output Vital Signs (last 24 hours): Temp Pulse Resp BP Pulse Ox 98.8 F 81 18 103/50 L 98 04/30/18 12:44 04/30/18 12:44 04/30/18 12:44 04/30/18 12:44 04/30/18 12:44 - Medications Medications: Current Medications Acetaminophen (Tylenol 325mg Tab) 650 mg PO Q6 PRN PRN Reason: Fever >100.4 F Last Admin: 04/13/18 05:56 Dose: 650 mg Albuterol/Ipratropium (Duoneb 3 Mg/0.5 Mg (3 Ml) Ud) 3 ml IH [id number] [facility] Last Admin: 04/30/18 14:35 Dose: 3 ml Albuterol/Ipratropium (Duoneb 3 Mg/0.5 Mg (3 Ml) Ud) 3 ml IH Q2H PRN PRN Reason: Shortness of Breath Last Admin: 04/21/18 00:50 Dose: 3 ml Alprazolam (Xanax) 0.25 mg PO TID PRN; Protocol PRN Reason: Anxiety Last Admin: 04/30/18 15:05 Dose: 0.25 mg Benzonatate (Tessalon Perles) 100 mg PO TID PRN PRN Reason: Cough Last Admin: 04/25/18 15:43 Dose: 100 mg Darbepoetin Fletcher (Aranesp) 200 mcg IVP QWK [facility] Last Admin: 04/30/18 09:36 Dose: 200 mcg Ergocalciferol (Drisdol 50,000 Intl Units Cap) 1 cap PO Q7D [facility] Last Admin: 04/29/18 08:33 Dose: 1 cap Fluoxetine HCl (Prozac) 20 mg PO DAILY [facility] Last Admin: 04/30/18 11:39 Dose: Not Given Heparin Sodium (Porcine) (Heparin) 5,000 units SC Q8 [facility]; Protocol Last Admin: 04/30/18 15:02 Dose: 5,000 units Heparin Sodium (Porcine) (Heparin) 2,000 units IVP MWF [facility]; Protocol Last Admin: 04/30/18 09:37 Dose: 2,000 units Iron Sucrose 100 mg/ Sodium (Chloride) 105 mls @ 210 mls/hr IVPB QWK [facility] Stop: 05/18/18 10:29 Last Admin: 04/27/18 11:13 Dose: 210 mls/hr Metronidazole (Flagyl) 500 mg PO TID [facility]; Protocol Stop: 05/07/18 14:01 Last Admin: 04/30/18 15:03 Dose: 500 mg Midodrine (Proamatine) 10 mg PO MWF [facility] Last Admin: 04/30/18 11:38 Dose: Not Given Multi-Ingredient Ointment (Hydrophor Oint) 0 gm TOP Q12 [facility] Last Admin: 04/30/18 11:37 Dose: Not Given Pantoprazole Sodium (Protonix Ec Tab) 40 mg PO 0600,1600 [facility] Last Admin: 04/30/18 05:15 Dose: 40 mg Spironolactone (Aldactone) 50 mg PO DAILY [facility] Stop: 05/25/18 10:01 Last Admin: 04/30/18 11:37 Dose: Not Given Vancomycin HCl (Vancocin 25 Mg/Ml (Oral Use)) 250 mg PO QID [facility]; Protocol Last Admin: 04/30/18 15:02 Dose: 250 mg Vitamin B Complex/Vit C/Folic Acid (Nephro-Bhupinder) 1 tab PO 0800 [facility] Last Admin: 04/30/18 11:37 Dose: Not Given Zolpidem Tartrate (Ambien) 10 mg PO HS [facility]; Protocol Last Admin: 04/29/18 21:18 Dose: 10 mg - Labs Labs: 04/30/18 06:50 04/30/18 06:50 PT 13.2 SECONDS (9.4-12.5) H 04/03/18 15:44 INR 1.15 04/03/18 15:44 APTT 30.7 Seconds (25.1-36.5) 04/03/18 15:44 - Constitutional Appears: Chronically Ill - Head Exam Head Exam: NORMAL INSPECTION - Respiratory Exam Respiratory Exam: Decreased Breath Sounds - Cardiovascular Exam Cardiovascular Exam: +S1, +S2 - GI/Abdominal Exam GI & Abdominal Exam: Soft. absent: Tenderness Assessment and Plan - Assessment and Plan (Free Text) Plan: Assessment C. diff. colitis S/P treatment of Influenza A infection S/P UTI with Klebsiella chronic lymphedema of lower extremities without evidence of cellulitis morbid obesity with BMI 52 chronic renal failure on dialysis R/O peripheral vascular disease Plan will continue PO Vancomycin day 7 for 10-14 days continue to monitor clinically
[2018-05-01] MEDS: Albuterol-Ipratrop 3 mg / 0.5 (3 ml) UD IH SCH ×4 (02:08→21:15)
[2018-05-01] MEDS: Pantoprazole 40 mg EC Tab PO SCH ×2 (06:30→18:39)
[2018-05-01] MEDS: Vancomycin 25 MG/ML PO SCH ×4 (09:30→21:25)
[2018-05-01] MEDS: Multivitamin Vitamin B Complex (Nephro-Vite) Tab PO SCH (09:32)
--- NOTE | 2018-05-01 12:42 | CP.PCM.PN ---
Subjective - Date & Time of Evaluation Date of Evaluation: 05/01/18 Time of Evaluation: 12:42 - Subjective Subjective: Nephrology Consultation Note: Assessment: stable oligoanuric Acute Kidney Injury (N17.9) likely due to ATN, pre-renal state, intrasvasc hypovolemia, impaired renal perfusion, HD 04/05/18: first session. probably ESRD anasarca severe symptomatic anemia due to GI bleed with gastric ulcers mild hyperkalemia and HAGMA, hyperphos hx of cirrhosis and etoh intra-ab lymphadenopathy morbid obesity acute influenza C diff colitis Plan HD tolerated well so far, on MWF schedule. 24 hr crcl: 6 and volume 200 mL. no evidence of renal recovery yet. probably ESRD Maintain hemodynamics stable. Avoid hypotension. Patient not on ACEI/ARB due to recent FELIPE. added midodrine pre HD Monitor Input/Output, daily weights and renal function with basic metabolic panel held phos binders due to diarrhoea PRBC as needed. s/p 1 gram IV iron, now on weekly aranesp/IV iron GI consult, pt on PPI work up for FELIPE and anemia as ordered. GN work up neg hence will defer kidney biopsy. also pt with liver disease and morbidly obese. started weekly vit d consider further work up for ascites. started on aldactone 50 mg/d to reduce portal HTN on antibiotics for c.diff Dose meds/antibiotics for reduced GFR. Avoid fleets enema/magnesium based laxatives. Avoid nephrotoxins/NSAIDs/ iodinated contrast (unless needed emergently) Glycemic control Further work up/management as per primary team she is arranged for outpt HD. Thanks for allowing me to participate in care of your patient. Will follow patient with you. Please call if any Qs. had d/w team Dr Kenji Salmeron Office: [phone] Chief Complaint; fatigue Reason for consult: Acute Kidney Injury HPI: Pt is a 52 F with hx of alcoholism in past, cirrhosis (pt states got better on its own in past) but no regular follow up with PMD presented with complaints of fatigue and tiredness for last few days, found to have severe anemia and FELIPE Denies OTC/herbal meds but NSAIDs as alleve for last few days No recent iodinated contrast exposure. Noted obvious episodes of low BP. reports chronic leg swelling but more now denies smoking or etoh now ROS: c/o swelling in leg. had gastric ulcers on EGD Cardiovascular: No chest pain. Pulmonary: improved shortness of breath but with cough Gastrointestinal: denies abdominal pain No nausea. No vomiting. diarrhoea better Genitourinary: not much UOP All other negative except as mentioned in HPI feels sad that she is still bed-bound Physical Examination: General Appearance: Comfortable, in no acute respiratory distress, co-operative . morbid obese Vitals reviewed and noted as below Head; Atraumatic, normocephalic ENT: no ulcers no thrush. Tongue is midline. Oropharynx: no rash or ulcers. EYES: Pupils are equal, round and reactive to light accommodation. Eye muscles and extraocular movement intact. Sclera is anicteric. Neck; supple no lymphadenopathy, no thyromegaly or bruit Lungs: Normal respiratory rate/effort. Breath sounds bilateral clear Heart: Normal rate. s1s2 normal. No rub or gallop. Extremities: 2-3+ edema. Neurological: Patient is alert, awake and oriented to person, place and time. No focal deficit. Strength bilateral appropriate and equal Skin: Warm and dry. Normal turgor. spider angioma rash upper chest. Palpitation: Normal elasticity for age Abdomen: Abdomen is soft. Bowel sounds +. There is no abdominal tenderness, no guarding/rigidity no organomegaly. limited due to obesity and abd wall edema Psych: normal insight and flat affect/mood MSK: no joint tenderness or swelling. Digits and nails normal, no deformity : kidney or bladder not palpable. has access as permacath Labs/imaging reviewed. Past medical history, past surgical history, family history, social history, allergy reviewed and noted as below Family hx: no hx of CKD. Rest non-contributory fena 0.3% intra-ab lymphadenopathy Objective - Vital Signs/Intake and Output Vital Signs (last 24 hours): Temp Pulse Resp BP Pulse Ox 98.5 F 82 20 96/54 L 96 04/30/18 21:35 05/01/18 06:00 05/01/18 06:00 05/01/18 06:00 05/01/18 06:00 - Medications Medications: Current Medications Acetaminophen (Tylenol 325mg Tab) 650 mg PO Q6 PRN PRN Reason: Fever >100.4 F Last Admin: 04/13/18 05:56 Dose: 650 mg Albuterol/Ipratropium (Duoneb 3 Mg/0.5 Mg (3 Ml) Ud) 3 ml IH [id number] [facility] Last Admin: 05/01/18 07:18 Dose: 3 ml Albuterol/Ipratropium (Duoneb 3 Mg/0.5 Mg (3 Ml) Ud) 3 ml IH Q2H PRN PRN Reason: Shortness of Breath Last Admin: 04/21/18 00:50 Dose: 3 ml Alprazolam (Xanax) 0.25 mg PO TID PRN; Protocol PRN Reason: Anxiety Last Admin: 04/30/18 15:05 Dose: 0.25 mg Benzonatate (Tessalon Perles) 100 mg PO TID PRN PRN Reason: Cough Last Admin: 04/25/18 15:43 Dose: 100 mg Darbepoetin Fletcher (Aranesp) 200 mcg IVP QWK [facility] Last Admin: 04/30/18 09:36 Dose: 200 mcg Ergocalciferol (Drisdol 50,000 Intl Units Cap) 1 cap PO Q7D [facility] Last Admin: 04/29/18 08:33 Dose: 1 cap Fluoxetine HCl (Prozac) 20 mg PO DAILY [facility] Last Admin: 05/01/18 09:31 Dose: 20 mg Heparin Sodium (Porcine) (Heparin) 5,000 units SC Q8 [facility]; Protocol Last Admin: 05/01/18 06:31 Dose: 5,000 units Heparin Sodium (Porcine) (Heparin) 2,000 units IVP MWF [facility]; Protocol Last Admin: 04/30/18 09:37 Dose: 2,000 units Iron Sucrose 100 mg/ Sodium (Chloride) 105 mls @ 210 mls/hr IVPB QWK [facility] Stop: 05/18/18 10:29 Last Admin: 04/27/18 11:13 Dose: 210 mls/hr Midodrine (Proamatine) 10 mg PO MWF [facility] Last Admin: 04/30/18 11:38 Dose: Not Given Multi-Ingredient Ointment (Hydrophor Oint) 0 gm TOP Q12 [facility] Last Admin: 04/30/18 22:00 Dose: 1 appl Pantoprazole Sodium (Protonix Ec Tab) 40 mg PO 0600,1600 [facility] Last Admin: 05/01/18 06:30 Dose: 40 mg Spironolactone (Aldactone) 50 mg PO DAILY [facility] Stop: 05/25/18 10:01 Last Admin: 05/01/18 09:31 Dose: 50 mg Vancomycin HCl (Vancocin 25 Mg/Ml (Oral Use)) 250 mg PO QID [facility]; Protocol Last Admin: 05/01/18 09:30 Dose: 250 mg Vitamin B Complex/Vit C/Folic Acid (Nephro-Bhupinder) 1 tab PO 0800 [facility] Last Admin: 05/01/18 09:32 Dose: 1 tab Zolpidem Tartrate (Ambien) 10 mg PO HS [facility]; Protocol Last Admin: 04/30/18 21:51 Dose: 10 mg - Labs Labs: 04/30/18 06:50 04/30/18 06:50 PT 13.2 SECONDS (9.4-12.5) H 04/03/18 15:44 INR 1.15 04/03/18 15:44 APTT 30.7 Seconds (25.1-36.5) 04/03/18 15:44
--- NOTE | 2018-05-01 12:51 | CP.PCM.PN ---
<Robina Garrett - Last Filed: 05/01/18 21:02> Subjective - Date & Time of Evaluation Date of Evaluation: 05/01/18 Time of Evaluation: 12:50 - Subjective Subjective: Robina Garrett, PGY-1 Medicine Progress Note for Dr. Ross Pt was seen and examined this AM at bedside. Pt states that she . She states that she was able to sleep through the night and had no acute events. She also states that she is tolerating her diet and is not having any abdominal pain. She denies fevers, chills, cp, sob, cough, abd pain, n/v, c/d, or dysuria. Objective - Vital Signs/Intake and Output Vital Signs (last 24 hours): Temp Pulse Resp BP Pulse Ox 98.5 F 82 20 96/54 L 96 04/30/18 21:35 05/01/18 06:00 05/01/18 06:00 05/01/18 06:00 05/01/18 06:00 - Medications Medications: Current Medications Acetaminophen (Tylenol 325mg Tab) 650 mg PO Q6 PRN PRN Reason: Fever >100.4 F Last Admin: 04/13/18 05:56 Dose: 650 mg Albuterol/Ipratropium (Duoneb 3 Mg/0.5 Mg (3 Ml) Ud) 3 ml IH [id number] [facility] Last Admin: 05/01/18 07:18 Dose: 3 ml Albuterol/Ipratropium (Duoneb 3 Mg/0.5 Mg (3 Ml) Ud) 3 ml IH Q2H PRN PRN Reason: Shortness of Breath Last Admin: 04/21/18 00:50 Dose: 3 ml Alprazolam (Xanax) 0.25 mg PO TID PRN; Protocol PRN Reason: Anxiety Last Admin: 04/30/18 15:05 Dose: 0.25 mg Benzonatate (Tessalon Perles) 100 mg PO TID PRN PRN Reason: Cough Last Admin: 04/25/18 15:43 Dose: 100 mg Darbepoetin Fletcher (Aranesp) 200 mcg IVP QWK [facility] Last Admin: 04/30/18 09:36 Dose: 200 mcg Ergocalciferol (Drisdol 50,000 Intl Units Cap) 1 cap PO Q7D [facility] Last Admin: 04/29/18 08:33 Dose: 1 cap Fluoxetine HCl (Prozac) 20 mg PO DAILY [facility] Last Admin: 05/01/18 09:31 Dose: 20 mg Heparin Sodium (Porcine) (Heparin) 5,000 units SC Q8 [facility]; Protocol Last Admin: 05/01/18 06:31 Dose: 5,000 units Heparin Sodium (Porcine) (Heparin) 2,000 units IVP MWF [facility]; Protocol Last Admin: 04/30/18 09:37 Dose: 2,000 units Iron Sucrose 100 mg/ Sodium (Chloride) 105 mls @ 210 mls/hr IVPB QWK [facility] Stop: 05/18/18 10:29 Last Admin: 04/27/18 11:13 Dose: 210 mls/hr Midodrine (Proamatine) 10 mg PO MWF [facility] Last Admin: 04/30/18 11:38 Dose: Not Given Multi-Ingredient Ointment (Hydrophor Oint) 0 gm TOP Q12 [facility] Last Admin: 04/30/18 22:00 Dose: 1 appl Pantoprazole Sodium (Protonix Ec Tab) 40 mg PO 0600,1600 [facility] Last Admin: 05/01/18 06:30 Dose: 40 mg Spironolactone (Aldactone) 50 mg PO DAILY [facility] Stop: 05/25/18 10:01 Last Admin: 05/01/18 09:31 Dose: 50 mg Vancomycin HCl (Vancocin 25 Mg/Ml (Oral Use)) 250 mg PO QID [facility]; Protocol Last Admin: 05/01/18 09:30 Dose: 250 mg Vitamin B Complex/Vit C/Folic Acid (Nephro-Bhupinder) 1 tab PO 0800 [facility] Last Admin: 05/01/18 09:32 Dose: 1 tab Zolpidem Tartrate (Ambien) 10 mg PO HS [facility]; Protocol Last Admin: 04/30/18 21:51 Dose: 10 mg - Labs Labs: 04/30/18 06:50 04/30/18 06:50 PT 13.2 SECONDS (9.4-12.5) H 04/03/18 15:44 INR 1.15 04/03/18 15:44 APTT 30.7 Seconds (25.1-36.5) 04/03/18 15:44 - Constitutional Appears: Non-toxic, No Acute Distress - Head Exam Head Exam: ATRAUMATIC, NORMAL INSPECTION, NORMOCEPHALIC - Respiratory Exam Respiratory Exam: Clear to Ausculation Bilateral, NORMAL BREATHING PATTERN. a bsent: Accessory Muscle Use, Rales, Rhonchi, Wheezes, Respiratory Distress, Stridor - Cardiovascular Exam Cardiovascular Exam: RRR, +S1, +S2. absent: Gallop, Rubs, Murmur - GI/Abdominal Exam GI & Abdominal Exam: Soft, Normal Bowel Sounds. absent: Distended, Firm, Guarding, Tenderness - Extremities Exam Extremities Exam: Normal Capillary Refill, Pedal Edema (3+). absent: Calf Te nderness - Back Exam Back Exam: NORMAL INSPECTION. absent: CVA tenderness (L), CVA tenderness (R) - Neurological Exam Neurological Exam: Alert, Awake, Oriented x3 - Psychiatric Exam Psychiatric exam: Normal Affect, Normal Mood - Skin Additional comments: Stage 1-2 ulcer on the right thigh, non draining/bleeding/pus Assessment and Plan - Assessment and Plan (Free Text) Assessment: Pt is a 52 yo F with past medical history liver failure, morbid obesity, and EtOH abuse [place] [facility] and admitted for management of anemia and FELIPE with metabolic acidosis. Focusing on outpatient HD placement and PT at this time. Pt is awaiting placement for [facility]. Plan: 1) C. Diff - C. diff antigen and toxin positive - PO vancomycin day 7 out of 10, flagyl was stopped because pt was responding well to PO vanc treatment - had one episode of watery diarrhea last night at midnight and has not had one since - Leukocytosis - resolved, WBC now wnl - contact precautions 2) Depression -Psych on consult, Dr. Ramos -continue xanax prn, prozac and ambien 3) Acute renal failure - improved - on HD MWF - Working with case making machine operator for outpatient HD setup - Found HD placement, awaiting [facility] placement - will get blood work every other day - Renal US is unremarkable - Strict I's and O's - Nephrology on consult, Dr. Salmeron, recs appreciated 4) Chronic lymphedema of B/L legs - Improving - Pt states improvement after multiple HD sessions - podiatry on consult, no further recommendations, local wound care for now - not currently draining/weeping - repeat ext US shows possible right SFA occlusive disease, limited study due to artifact - wound culture grew Enterobacter Cloacae, E. faecalis - superficial bacteria colonizers - PT recommends JENNA, awaiting placement 5) Microcytic anemia - s/p total 11 units pRBCs, 2 FFPs - oral iron started - endoscopy showed 3 non bleeding gastric ulcers, largest one 8mm - Iron studies shows likely iron deficiency - Head CT unremarkable - CTAP shows adenopathy of the hepatic gastric ligament - GI on consult, Dr. Melo - recs appreciated 6) Fever - resolved -afebrile, no WBC -positive flu type A, completed course of tamiflu -completed course of merrem for UTI with klebsiella -CXR showed moderate cardiomegaly, vascular congestion -blood culture shows no growth after 5 days 7) Elevated BNP -BNP 06815 on admission -Echo showed EF of 68%, mild TR/MR, mild pulm HTN, borderline LVH PPX/Diet -protonix, heparin -renal, fiber diet Patient seen and case discussed with attending, Dr. Cody Garrett, PGY-1 <Miko Ross - Last Filed: 05/02/18 08:00> Objective - Vital Signs/Intake and Output Vital Signs (last 24 hours): Temp Pulse Resp BP Pulse Ox 98.8 F 76 20 122/76 98 05/01/18 22:53 05/01/18 22:53 05/01/18 22:53 05/01/18 22:53 05/01/18 22:53 - Medications Medications: Current Medications Acetaminophen (Tylenol 325mg Tab) 650 mg PO Q6 PRN PRN Reason: Fever >100.4 F Last Admin: 04/13/18 05:56 Dose: 650 mg Albuterol/Ipratropium (Duoneb 3 Mg/0.5 Mg (3 Ml) Ud) 3 ml IH [id number] Last Admin: 05/02/18 07:21 Dose: 3 ml Albuterol/Ipratropium (Duoneb 3 Mg/0.5 Mg (3 Ml) Ud) 3 ml IH Q2H PRN PRN Reason: Shortness of Breath Last Admin: 04/21/18 00:50 Dose: 3 ml Alprazolam (Xanax) 0.25 mg PO TID PRN; Protocol PRN Reason: Anxiety Last Admin: 04/30/18 15:05 Dose: 0.25 mg Benzonatate (Tessalon Perles) 100 mg PO TID PRN PRN Reason: Cough Last Admin: 04/25/18 15:43 Dose: 100 mg Cyclobenzaprine HCl (Flexeril) 5 mg PO TID [facility] Last Admin: 05/01/18 18:39 Dose: 5 mg Darbepoetin Fletcher (Aranesp) 200 mcg IVP QWK [facility] Last Admin: 04/30/18 09:36 Dose: 200 mcg Ergocalciferol (Drisdol 50,000 Intl Units Cap) 1 cap PO Q7D [facility] Last Admin: 04/29/18 08:33 Dose: 1 cap Fluoxetine HCl (Prozac) 30 mg PO DAILY [facility] Heparin Sodium (Porcine) (Heparin) 5,000 units SC Q8 [facility]; Protocol Last Admin: 05/02/18 05:01 Dose: 5,000 units Heparin Sodium (Porcine) (Heparin) 2,000 units IVP MWF [facility]; Protocol Last Admin: 04/30/18 09:37 Dose: 2,000 units Iron Sucrose 100 mg/ Sodium (Chloride) 105 mls @ 210 mls/hr IVPB QWK [facility] Stop: 05/18/18 10:29 Last Admin: 04/27/18 11:13 Dose: 210 mls/hr Midodrine (Proamatine) 10 mg PO MWF [facility] Last Admin: 04/30/18 11:38 Dose: Not Given Multi-Ingredient Ointment (Hydrophor Oint) 0 gm TOP Q12 [facility] Last Admin: 05/01/18 21:24 Dose: 1 appl Pantoprazole Sodium (Protonix Ec Tab) 40 mg PO 0600,1600 [facility] Last Admin: 05/02/18 05:27 Dose: 40 mg Spironolactone (Aldactone) 50 mg PO DAILY [facility] Stop: 05/25/18 10:01 Last Admin: 05/01/18 09:31 Dose: 50 mg Vancomycin HCl (Vancocin 25 Mg/Ml (Oral Use)) 250 mg PO QID [facility]; Protocol Last Admin: 05/01/18 21:25 Dose: 250 mg Vitamin B Complex/Vit C/Folic Acid (Nephro-Bhupinder) 1 tab PO 0800 [facility] Last Admin: 05/01/18 09:32 Dose: 1 tab Zolpidem Tartrate (Ambien) 10 mg PO HS [facility]; Protocol Last Admin: 04/30/18 21:51 Dose: 10 mg - Labs Labs: 04/30/18 06:50 04/30/18 06:50 PT 13.2 SECONDS (9.4-12.5) H 04/03/18 15:44 INR 1.15 04/03/18 15:44 APTT 30.7 Seconds (25.1-36.5) 04/03/18 15:44 Attending/Attestation - Attestation I have personally seen and examined this patient.: Yes I have fully participated in the care of the patient.: Yes I have reviewed all pertinent clinical information, including history, physical exam and plan: Yes Notes (Text): 05/01/18 52 year old female with past medical history of liver failures and alcohol abuse who initially presented with weakness found to have anemia and FELIPE. GI workup included EGD which showed 3 non bleeding gastric ulcers. Patient is currently on iron and protonix. H/H has been stable. She has been started on hemodialysis. Nephrology is following. She is s/p treatment for flu and UTI. She is on po vanco for CDIF. She is currently pending [facility]NA placement and outpatient dialysis set up for d/c planning. Miko Ross MD Hospitalist.
[2018-05-01] MEDS: Petrolatum-Mineral Oil Oint (100gm) TOP SCH ×2 (14:00→21:24)
--- NOTE | 2018-05-01 16:20 | CP.PCM.PN ---
Subjective - Date & Time of Evaluation Date of Evaluation: 05/01/18 Time of Evaluation: 08:20 - Subjective Subjective: Comfortable in bed, afebrile. Objective - Vital Signs/Intake and Output Vital Signs (last 24 hours): Temp Pulse Resp BP Pulse Ox 98.8 F 81 18 103/50 L 98 04/30/18 12:44 04/30/18 12:44 04/30/18 12:44 04/30/18 12:44 04/30/18 12:44 - Medications Medications: Current Medications Acetaminophen (Tylenol 325mg Tab) 650 mg PO Q6 PRN PRN Reason: Fever >100.4 F Last Admin: 04/13/18 05:56 Dose: 650 mg Albuterol/Ipratropium (Duoneb 3 Mg/0.5 Mg (3 Ml) Ud) 3 ml IH [id number] [facility] Last Admin: 04/30/18 14:35 Dose: 3 ml Albuterol/Ipratropium (Duoneb 3 Mg/0.5 Mg (3 Ml) Ud) 3 ml IH Q2H PRN PRN Reason: Shortness of Breath Last Admin: 04/21/18 00:50 Dose: 3 ml Alprazolam (Xanax) 0.25 mg PO TID PRN; Protocol PRN Reason: Anxiety Last Admin: 04/30/18 15:05 Dose: 0.25 mg Benzonatate (Tessalon Perles) 100 mg PO TID PRN PRN Reason: Cough Last Admin: 04/25/18 15:43 Dose: 100 mg Darbepoetin Fletcher (Aranesp) 200 mcg IVP QWK [facility] Last Admin: 04/30/18 09:36 Dose: 200 mcg Ergocalciferol (Drisdol 50,000 Intl Units Cap) 1 cap PO Q7D [facility] Last Admin: 04/29/18 08:33 Dose: 1 cap Fluoxetine HCl (Prozac) 20 mg PO DAILY [facility] Last Admin: 04/30/18 11:39 Dose: Not Given Heparin Sodium (Porcine) (Heparin) 5,000 units SC Q8 [facility]; Protocol Last Admin: 04/30/18 15:02 Dose: 5,000 units Heparin Sodium (Porcine) (Heparin) 2,000 units IVP MWF [facility]; Protocol Last Admin: 04/30/18 09:37 Dose: 2,000 units Iron Sucrose 100 mg/ Sodium (Chloride) 105 mls @ 210 mls/hr IVPB QWK [facility] Stop: 05/18/18 10:29 Last Admin: 04/27/18 11:13 Dose: 210 mls/hr Metronidazole (Flagyl) 500 mg PO TID [facility]; Protocol Stop: 05/07/18 14:01 Last Admin: 04/30/18 15:03 Dose: 500 mg Midodrine (Proamatine) 10 mg PO MWF [facility] Last Admin: 04/30/18 11:38 Dose: Not Given Multi-Ingredient Ointment (Hydrophor Oint) 0 gm TOP Q12 [facility] Last Admin: 04/30/18 11:37 Dose: Not Given Pantoprazole Sodium (Protonix Ec Tab) 40 mg PO 0600,1600 [facility] Last Admin: 04/30/18 05:15 Dose: 40 mg Spironolactone (Aldactone) 50 mg PO DAILY [facility] Stop: 05/25/18 10:01 Last Admin: 04/30/18 11:37 Dose: Not Given Vancomycin HCl (Vancocin 25 Mg/Ml (Oral Use)) 250 mg PO QID [facility]; Protocol Last Admin: 04/30/18 15:02 Dose: 250 mg Vitamin B Complex/Vit C/Folic Acid (Nephro-Bhupinder) 1 tab PO 0800 [facility] Last Admin: 04/30/18 11:37 Dose: Not Given Zolpidem Tartrate (Ambien) 10 mg PO HS [facility]; Protocol Last Admin: 04/29/18 21:18 Dose: 10 mg - Labs Labs: 04/30/18 06:50 04/30/18 06:50 PT 13.2 SECONDS (9.4-12.5) H 04/03/18 15:44 INR 1.15 04/03/18 15:44 APTT 30.7 Seconds (25.1-36.5) 04/03/18 15:44 - Constitutional Appears: No Acute Distress, Chronically Ill - Head Exam Head Exam: NORMAL INSPECTION - Neck Exam Neck Exam: absent: Meningismus - Respiratory Exam Respiratory Exam: Decreased Breath Sounds - Cardiovascular Exam Cardiovascular Exam: +S1, +S2 - GI/Abdominal Exam GI & Abdominal Exam: Soft. absent: Tenderness Assessment and Plan - Assessment and Plan (Free Text) Plan: Assessment C. diff. colitis S/P treatment of Influenza A infection S/P UTI with Klebsiella chronic lymphedema of lower extremities without evidence of cellulitis morbid obesity with BMI 52 chronic renal failure on dialysis R/O peripheral vascular disease Plan will continue PO Vancomycin day 8 for 10-14 days continue to monitor clinically
--- NOTE | 2018-05-01 19:19 | PN ---
DATE: 05/01/2018 SUBJECTIVE: The patient was seen today. The patient presented to be tearful. The patient reported that she still has feelings of hopelessness and wish never been born. The patient denied that she has any thoughts of killing herself. The patient reported that she feels overwhelmed with her medical condition. So far the patient tolerates medications well, no side effects observed or reported. The patient is willing to increase the Prozac to 30 mg daily. The patient reported that she sleeps better on Ambien and Xanax is helping her with her anxiety symptoms. The patient denied any psychotic symptoms and the patient does not present to be psychotic. PHYSICAL EXAMINATION: Vital signs seems to be stable. MEDICATIONS: Medications reviewed in regards of psychotropic medication, the patient is on 0.25 mg of Xanax three times a day as needed. The patient is on Flexeril. The patient also is on Ambien 10 mg at the nighttime as well as Prozac will be increased to 30 mg daily for depression and anxiety. LABORATORY DATA: Reviewed. Most recent was from today. Microbiology reviewed. MENTAL STATUS EXAMINATION: As this publicity writer described above. The patient presented to be tearful, depressed mood described as feeling hopeless, wish never been born, thought process seems to be coherent and goal directed. Thought content, the patient denied visual, auditory, tactile hallucinations. Denied paranoid ideation. The patient verbalized feeling of hopelessness and passive wish to be . Insight and judgment seems to be limited. Impulses are well controlled. IMPRESSION: Rule out major depressive disorder, rule-out mood disorder due to general medical condition. PLAN: This publicity writer increase the dose of Prozac. Ambien was increased by Dr. Saxena. For anxiety, we will follow up and advise accordingly. CBT was provided today. The patient was receptive. Thank you very much for letting me participate in care of your patient. Rachel Maradiaga MD
[2018-05-02] MEDS: Albuterol-Ipratrop 3 mg / 0.5 (3 ml) UD IH SCH ×2 (02:48→07:21)
[2018-05-02] MEDS: Pantoprazole 40 mg EC Tab PO SCH ×2 (05:27→17:11)
[2018-05-02] MEDS: Multivitamin Vitamin B Complex (Nephro-Vite) Tab PO SCH (07:59)
[2018-05-02 08:15] LABS: BASO # 0.03 K/mm3 (0.0-2.0); BASO % 0.4 % (0.0-3.0); EOS # 0.5 (0.0-0.7); EOS % 6.4 % (1.5-5.0); GRAN # 5.57 (1.4-6.5); GRAN % 66.7 % (50.0-68.0); HEMOGLOBIN 8.6 g/dL (12.0-16.0); LYMPH # 1.4 (1.2-3.4); LYMPH % 16.4 % (22.0-35.0); MEAN CORPUSCULAR HEMOGLOBIN 27.1 pg (25.0-35.0); MEAN CORPUSCULAR HGB CONC 30.5 g/dl (31.0-37.0); MEAN PLATELET VOLUME 7.9 fl (7.0-11.0); MONO # 0.8 (0.1-0.6); MONO % 10.1 % (1.0-6.0); RBC 3.17 10^6/uL (3.5-6.1); RED CELL DISTRIBUTION WIDTH 19.4 % (11.5-14.5); WHITE BLOOD COUNT 8.3 10^3/uL (4.5-11.0)
[2018-05-02 08:24] LABS: ALB/GLOB RATIO 0.6 (1.1-1.8); CALCIUM 7.9 mg/dL (8.4-10.5)
[2018-05-02] MEDS: Petrolatum-Mineral Oil Oint (100gm) TOP SCH ×2 (10:58→21:32)
[2018-05-02] MEDS: Vancomycin 25 MG/ML PO SCH ×4 (10:59→21:29)
--- NOTE | 2018-05-02 14:18 | CP.PCM.PN ---
<Robina Garrett - Last Filed: 05/02/18 15:55> Subjective - Date & Time of Evaluation Date of Evaluation: 05/02/18 Time of Evaluation: 14:15 - Subjective Subjective: Robina Garrett, PGY-1 Medicine Progress Note for Dr. Ross Pt was seen and examined this AM at bedside. Pt is scheduled for dialysis later today, she had 2 bouts of diarrhea today. She states that she was able to sleep through the night and had no acute events. She also states that she is tolerating her diet and is not having any abdominal pain. She denies fevers, chills, cp, sob, cough, abd pain, n/v, c/d, or dysuria. Objective - Vital Signs/Intake and Output Vital Signs (last 24 hours): Temp Pulse Resp BP Pulse Ox 98.8 F 76 20 122/76 98 05/01/18 22:53 05/01/18 22:53 05/01/18 22:53 05/01/18 22:53 05/01/18 22:53 - Medications Medications: Current Medications Acetaminophen (Tylenol 325mg Tab) 650 mg PO Q6 PRN PRN Reason: Fever >100.4 F Last Admin: 04/13/18 05:56 Dose: 650 mg Alprazolam (Xanax) 0.25 mg PO TID PRN; Protocol PRN Reason: Anxiety Last Admin: 04/30/18 15:05 Dose: 0.25 mg Benzonatate (Tessalon Perles) 100 mg PO TID PRN PRN Reason: Cough Last Admin: 04/25/18 15:43 Dose: 100 mg Cyclobenzaprine HCl (Flexeril) 5 mg PO TID [facility] Last Admin: 05/02/18 13:25 Dose: 5 mg Darbepoetin Fletcher (Aranesp) 200 mcg IVP QWK [facility] Last Admin: 04/30/18 09:36 Dose: 200 mcg Ergocalciferol (Drisdol 50,000 Intl Units Cap) 1 cap PO Q7D [facility] Last Admin: 04/29/18 08:33 Dose: 1 cap Fluoxetine HCl (Prozac) 30 mg PO DAILY [facility] Last Admin: 05/02/18 13:25 Dose: 30 mg Heparin Sodium (Porcine) (Heparin) 5,000 units SC Q8 [facility]; Protocol Last Admin: 05/02/18 05:01 Dose: 5,000 units Heparin Sodium (Porcine) (Heparin) 2,000 units IVP [facility]; Protocol Last Admin: 05/02/18 11:29 Dose: 2,000 units Iron Sucrose 100 mg/ Sodium (Chloride) 105 mls @ 210 mls/hr IVPB QWK [facility] Stop: 05/18/18 10:29 Last Admin: 04/27/18 11:13 Dose: 210 mls/hr Midodrine (Proamatine) 10 mg PO [facility] Last Admin: 05/02/18 13:26 Dose: 10 mg Multi-Ingredient Ointment (Hydrophor Oint) 0 gm TOP Q12 [facility] Last Admin: 05/02/18 10:58 Dose: Not Given Pantoprazole Sodium (Protonix Ec Tab) 40 mg PO 0600,1600 [facility] Last Admin: 05/02/18 05:27 Dose: 40 mg Spironolactone (Aldactone) 50 mg PO DAILY [facility] Stop: 05/25/18 10:01 Last Admin: 05/02/18 10:57 Dose: Not Given Vancomycin HCl (Vancocin 25 Mg/Ml (Oral Use)) 250 mg PO QID [facility]; Protocol Last Admin: 05/02/18 13:21 Dose: 250 mg Vitamin B Complex/Vit C/Folic Acid (Nephro-Bhupinder) 1 tab PO 0800 [facility] Last Admin: 05/02/18 07:59 Dose: 1 tab Zolpidem Tartrate (Ambien) 10 mg PO HS [facility]; Protocol Last Admin: 04/30/18 21:51 Dose: 10 mg - Labs Labs: 05/02/18 08:04 05/02/18 08:04 PT 13.2 SECONDS (9.4-12.5) H 04/03/18 15:44 INR 1.15 04/03/18 15:44 APTT 30.7 Seconds (25.1-36.5) 04/03/18 15:44 - Constitutional Appears: Non-toxic, No Acute Distress - Head Exam Head Exam: ATRAUMATIC, NORMAL INSPECTION, NORMOCEPHALIC - Eye Exam Eye Exam: EOMI, Normal appearance, PERRL - Respiratory Exam Respiratory Exam: Clear to Ausculation Bilateral, NORMAL BREATHING PATTERN. absent: Accessory Muscle Use, Decreased Breath Sounds, Rhonchi, Wheezes, Respiratory Distress, Stridor - Cardiovascular Exam Cardiovascular Exam: RRR, +S1, +S2. absent: Gallop, Rubs - GI/Abdominal Exam GI & Abdominal Exam: Soft, Normal Bowel Sounds. absent: Distended, Firm, Guarding, Rigid, Tenderness - Extremities Exam Extremities Exam: Normal Capillary Refill, Pedal Edema (3+ pitting edema) - Back Exam Back Exam: NORMAL INSPECTION. absent: CVA tenderness (L), CVA tenderness (R) - Neurological Exam Neurological Exam: Alert, Awake, Oriented x3 - Psychiatric Exam Psychiatric exam: Normal Affect, Normal Mood - Skin Additional comments: Stage 1-2 ulcer on the right thigh, non draining/bleeding/pus Assessment and Plan - Assessment and Plan (Free Text) Assessment: Pt is a 52 yo F with past medical history liver failure, morbid obesity, and EtOH abuse presents to [facility] for worsening weakness and admitted for management of anemia and FELIPE with metabolic acidosis. Focusing on outpatient HD placement and PT at this time. Pt is awaiting placement for [facility]. Plan: 1) C. Diff - C. diff antigen and toxin positive - PO vancomycin day 8 out of 10 - had 2 bouts of diarrhea last night - Leukocytosis - resolved, WBC now wnl - contact precautions 2) Depression -Psych on consult, Dr. Ramos -continue xanax prn, prozac and ambien 3) Acute renal failure - improved - on HD MWF - Had HD today - Working with nurse case manager for outpatient HD setup - Found HD placement, awaiting [facility] placement - will get blood work every other day - Renal US is unremarkable - Strict I's and O's - Nephrology on consult, Dr. Salmeron, recs appreciated 4) Chronic lymphedema of B/L legs - Improving - Pt states improvement after multiple HD sessions - podiatry on consult, no further recommendations, local wound care for now - not currently draining/weeping - repeat ext US shows possible right SFA occlusive disease, limited study due to artifact - wound culture grew Enterobacter Cloacae, E. faecalis - superficial bacteria colonizers - PT recommends J[facility]NA, awaiting placement 5) Microcytic anemia - s/p total 11 units pRBCs, 2 FFPs - oral iron started - endoscopy showed 3 non bleeding gastric ulcers, largest one 8mm - Iron studies shows likely iron deficiency - Head CT unremarkable - CTAP shows adenopathy of the hepatic gastric ligament - GI on consult, Dr. Melo - recs appreciated 6) Fever - resolved -afebrile, no WBC -positive flu type A, completed course of tamiflu -completed course of merrem for UTI with klebsiella -CXR showed moderate cardiomegaly, vascular congestion -blood culture shows no growth after 5 days 7) Elevated BNP -BNP 14355 on admission -Echo showed EF of 68%, mild TR/MR, mild pulm HTN, borderline LVH PPX/Diet -protonix, heparin -renal, fiber diet Patient seen and case discussed with attending, Dr. Cody Garrett, PGY-1 <Miko Ross - Last Filed: 05/02/18 17:39> Objective - Vital Signs/Intake and Output Vital Signs (last 24 hours): Temp Pulse Resp BP Pulse Ox 98.4 F 77 20 112/59 L 99 05/02/18 14:00 05/02/18 14:00 05/02/18 14:00 05/02/18 14:00 05/02/18 14:00 - Medications Medications: Current Medications Acetaminophen (Tylenol 325mg Tab) 650 mg PO Q6 PRN PRN Reason: Fever >100.4 F Last Admin: 04/13/18 05:56 Dose: 650 mg Alprazolam (Xanax) 0.25 mg PO TID PRN; Protocol PRN Reason: Anxiety Last Admin: 04/30/18 15:05 Dose: 0.25 mg Benzonatate (Tessalon Perles) 100 mg PO TID PRN PRN Reason: Cough Last Admin: 04/25/18 15:43 Dose: 100 mg Cyclobenzaprine HCl (Flexeril) 5 mg PO TID [facility] Last Admin: 05/02/18 17:11 Dose: 5 mg Darbepoetin Fletcher (Aranesp) 200 mcg IVP QWK [facility] Last Admin: 04/30/18 09:36 Dose: 200 mcg Ergocalciferol (Drisdol 50,000 Intl Units Cap) 1 cap PO Q7D [facility] Last Admin: 04/29/18 08:33 Dose: 1 cap Fluoxetine HCl (Prozac) 30 mg PO DAILY [facility] Last Admin: 05/02/18 13:25 Dose: 30 mg Heparin Sodium (Porcine) (Heparin) 5,000 units SC Q8 [facility]; Protocol Last Admin: 05/02/18 14:17 Dose: Not Given Heparin Sodium (Porcine) (Heparin) 2,000 units IVP [facility]; Protocol Last Admin: 05/02/18 11:29 Dose: 2,000 units Iron Sucrose 100 mg/ Sodium (Chloride) 105 mls @ 210 mls/hr IVPB QWK [facility] Stop: 05/18/18 10:29 Last Admin: 04/27/18 11:13 Dose: 210 mls/hr Midodrine (Proamatine) 10 mg PO F [facility] Last Admin: 05/02/18 13:26 Dose: 10 mg Multi-Ingredient Ointment (Hydrophor Oint) 0 gm TOP Q12 [facility] Last Admin: 05/02/18 10:58 Dose: Not Given Pantoprazole Sodium (Protonix Ec Tab) 40 mg PO 0600,1600 [facility] Last Admin: 05/02/18 17:11 Dose: 40 mg Spironolactone (Aldactone) 50 mg PO DAILY [facility] Stop: 05/25/18 10:01 Last Admin: 05/02/18 10:57 Dose: Not Given Vancomycin HCl (Vancocin 25 Mg/Ml (Oral Use)) 250 mg PO QID [facility]; Protocol Last Admin: 05/02/18 17:11 Dose: 250 mg Vitamin B Complex/Vit C/Folic Acid (Nephro-Bhupinder) 1 tab PO 0800 [facility] Last Admin: 05/02/18 07:59 Dose: 1 tab Zolpidem Tartrate (Ambien) 10 mg PO HS [facility]; Protocol Last Admin: 04/30/18 21:51 Dose: 10 mg - Labs Labs: 05/02/18 08:04 05/02/18 08:04 PT 13.2 SECONDS (9.4-12.5) H 04/03/18 15:44 INR 1.15 04/03/18 15:44 APTT 30.7 Seconds (25.1-36.5) 04/03/18 15:44 Attending/Attestation - Attestation I have personally seen and examined this patient.: Yes I have fully participated in the care of the patient.: Yes I have reviewed all pertinent clinical information, including history, physical exam and plan: Yes Notes (Text): 05/02/18 17:39 52 year old female with past medical history of liver failures and alcohol abuse who initially presented with weakness found to have anemia and FELPIE. GI workup included EGD which showed 3 non bleeding gastric ulcers. Patient is currently on iron and protonix. H/H has been stable. She has been started on hemodialysis. Nephrology is following. Outpatient dialysis has been arranged. She is s/p treatment for flu and UTI. She is on po vanco for CDIF. She is currently pending [facility] placement for d/c planning. Miko Ross MD Hospitalist.
--- NOTE | 2018-05-02 15:22 | CP.PCM.PN ---
Subjective - Date & Time of Evaluation Date of Evaluation: 05/02/18 Time of Evaluation: 15:21 - Subjective Subjective: Nephrology Consultation Note: Assessment: stable oligoanuric Acute Kidney Injury (N17.9) likely due to ATN, pre-renal state, intrasvasc hypovolemia, impaired renal perfusion, HD 04/05/18: first session. probably ESRD anasarca severe symptomatic anemia due to GI bleed with gastric ulcers mild hyperkalemia and HAGMA, hyperphos hx of cirrhosis and etoh intra-ab lymphadenopathy morbid obesity acute influenza C diff colitis Plan HD tolerated well so far, on MWF schedule. 24 hr crcl: 6 and volume 200 mL. no evidence of renal recovery yet. probably ESRD Maintain hemodynamics stable. Avoid hypotension. Patient not on ACEI/ARB due to recent FELIPE. added midodrine pre HD Monitor Input/Output, daily weights and renal function with basic metabolic panel held phos binders due to diarrhoea PRBC as needed. s/p 1 gram IV iron, now on weekly aranesp/IV iron GI consult, pt on PPI work up for FELIPE and anemia as ordered. GN work up neg hence will defer kidney biopsy. also pt with liver disease and morbidly obese. started weekly vit d consider further work up for ascites. started on aldactone 50 mg/d to reduce portal HTN on antibiotics for c.diff Dose meds/antibiotics for reduced GFR. Avoid fleets enema/magnesium based laxatives. Avoid nephrotoxins/NSAIDs/ iodinated contrast (unless needed emergently) Glycemic control Further work up/management as per primary team she is arranged for outpt HD. Thanks for allowing me to participate in care of your patient. Will follow patient with you. Please call if any Qs. had d/w team Dr Kenji Salmeron Office: [phone] Chief Complaint; fatigue Reason for consult: Acute Kidney Injury HPI: Pt is a 52 F with hx of alcoholism in past, cirrhosis (pt states got better on its own in past) but no regular follow up with PMD presented with complaints of fatigue and tiredness for last few days, found to have severe anemia and FELIPE Denies OTC/herbal meds but NSAIDs as alleve for last few days No recent iodinated contrast exposure. Noted obvious episodes of low BP. reports chronic leg swelling but more now denies smoking or etoh now ROS: c/o swelling in leg. had gastric ulcers on EGD Cardiovascular: No chest pain. Pulmonary: improved shortness of breath but with cough Gastrointestinal: denies abdominal pain No nausea. No vomiting. diarrhoea resol jerrell. Genitourinary: not much UOP All other negative except as mentioned in HPI feels sad that she is still bed-bound Physical Examination: General Appearance: Comfortable, in no acute respiratory distress, co-operative . morbid obese Vitals reviewed and noted as below Head; Atraumatic, normocephalic ENT: no ulcers no thrush. Tongue is midline. Oropharynx: no rash or ulcers. EYES: Pupils are equal, round and reactive to light accommodation. Eye muscles and extraocular movement intact. Sclera is anicteric. Neck; supple no lymphadenopathy, no thyromegaly or bruit Lungs: Normal respiratory rate/effort. Breath sounds bilateral clear Heart: Normal rate. s1s2 normal. No rub or gallop. Extremities: 2-3+ edema. Neurological: Patient is alert, awake and oriented to person, place and time. No focal deficit. Strength bilateral appropriate and equal Skin: Warm and dry. Normal turgor. spider angioma rash upper chest. Palpitation: Normal elasticity for age Abdomen: Abdomen is soft. Bowel sounds +. There is no abdominal tenderness, no guarding/rigidity no organomegaly. limited due to obesity and abd wall edema Psych: normal insight and flat affect/mood MSK: no joint tenderness or swelling. Digits and nails normal, no deformity : kidney or bladder not palpable. has access as permacath Labs/imaging reviewed. Past medical history, past surgical history, family history, social history, allergy reviewed and noted as below Family hx: no hx of CKD. Rest non-contributory fena 0.3% intra-ab lymphadenopathy Objective - Vital Signs/Intake and Output Vital Signs (last 24 hours): Temp Pulse Resp BP Pulse Ox 98.8 F 76 20 122/76 98 05/01/18 22:53 05/01/18 22:53 05/01/18 22:53 05/01/18 22:53 05/01/18 22:53 - Medications Medications: Current Medications Acetaminophen (Tylenol 325mg Tab) 650 mg PO Q6 PRN PRN Reason: Fever >100.4 F Last Admin: 04/13/18 05:56 Dose: 650 mg Alprazolam (Xanax) 0.25 mg PO TID PRN; Protocol PRN Reason: Anxiety Last Admin: 04/30/18 15:05 Dose: 0.25 mg Benzonatate (Tessalon Perles) 100 mg PO TID PRN PRN Reason: Cough Last Admin: 04/25/18 15:43 Dose: 100 mg Cyclobenzaprine HCl (Flexeril) 5 mg PO TID [facility] Last Admin: 05/02/18 13:25 Dose: 5 mg Darbepoetin Fletcher (Aranesp) 200 mcg IVP QWK [facility] Last Admin: 04/30/18 09:36 Dose: 200 mcg Ergocalciferol (Drisdol 50,000 Intl Units Cap) 1 cap PO Q7D [facility] Last Admin: 04/29/18 08:33 Dose: 1 cap Fluoxetine HCl (Prozac) 30 mg PO DAILY [facility] Last Admin: 05/02/18 13:25 Dose: 30 mg Heparin Sodium (Porcine) (Heparin) 5,000 units SC Q8 [facility]; Protocol Last Admin: 05/02/18 05:01 Dose: 5,000 units Heparin Sodium (Porcine) (Heparin) 2,000 units IVP MWF [facility]; Protocol Last Admin: 05/02/18 11:29 Dose: 2,000 units Iron Sucrose 100 mg/ Sodium (Chloride) 105 mls @ 210 mls/hr IVPB QWK [facility] Stop: 05/18/18 10:29 Last Admin: 04/27/18 11:13 Dose: 210 mls/hr Midodrine (Proamatine) 10 mg PO MWF [facility] Last Admin: 05/02/18 13:26 Dose: 10 mg Multi-Ingredient Ointment (Hydrophor Oint) 0 gm TOP Q12 [facility] Last Admin: 05/02/18 10:58 Dose: Not Given Pantoprazole Sodium (Protonix Ec Tab) 40 mg PO 0600,1600 [facility] Last Admin: 05/02/18 05:27 Dose: 40 mg Spironolactone (Aldactone) 50 mg PO DAILY [facility] Stop: 05/25/18 10:01 Last Admin: 05/02/18 10:57 Dose: Not Given Vancomycin HCl (Vancocin 25 Mg/Ml (Oral Use)) 250 mg PO QID [facility]; Protocol Last Admin: 05/02/18 13:21 Dose: 250 mg Vitamin B Complex/Vit C/Folic Acid (Nephro-Bhupinder) 1 tab PO 0800 [facility] Last Admin: 05/02/18 07:59 Dose: 1 tab Zolpidem Tartrate (Ambien) 10 mg PO HS [facility]; Protocol Last Admin: 04/30/18 21:51 Dose: 10 mg - Labs Labs: 05/02/18 08:04 05/02/18 08:04 PT 13.2 SECONDS (9.4-12.5) H 04/03/18 15:44 INR 1.15 04/03/18 15:44 APTT 30.7 Seconds (25.1-36.5) 04/03/18 15:44
--- NOTE | 2018-05-02 19:10 | CP.PCM.PN ---
Subjective - Date & Time of Evaluation Date of Evaluation: 05/02/18 Time of Evaluation: 08:30 - Subjective Subjective: Still having diarrhea but a little better, no fevers, not in distress. Objective - Vital Signs/Intake and Output Vital Signs (last 24 hours): Temp Pulse Resp BP Pulse Ox 98.5 F 90 20 111/54 L 99 05/01/18 14:00 05/01/18 14:00 05/01/18 14:00 05/01/18 14:00 05/01/18 14:00 - Medications Medications: Current Medications Acetaminophen (Tylenol 325mg Tab) 650 mg PO Q6 PRN PRN Reason: Fever >100.4 F Last Admin: 04/13/18 05:56 Dose: 650 mg Albuterol/Ipratropium (Duoneb 3 Mg/0.5 Mg (3 Ml) Ud) 3 ml IH [id number] [facility] Last Admin: 05/01/18 13:26 Dose: 3 ml Albuterol/Ipratropium (Duoneb 3 Mg/0.5 Mg (3 Ml) Ud) 3 ml IH Q2H PRN PRN Reason: Shortness of Breath Last Admin: 04/21/18 00:50 Dose: 3 ml Alprazolam (Xanax) 0.25 mg PO TID PRN; Protocol PRN Reason: Anxiety Last Admin: 04/30/18 15:05 Dose: 0.25 mg Benzonatate (Tessalon Perles) 100 mg PO TID PRN PRN Reason: Cough Last Admin: 04/25/18 15:43 Dose: 100 mg Cyclobenzaprine HCl (Flexeril) 5 mg PO TID [facility] Last Admin: 05/01/18 14:45 Dose: 5 mg Darbepoetin Fletcher (Aranesp) 200 mcg IVP QWK [facility] Last Admin: 04/30/18 09:36 Dose: 200 mcg Ergocalciferol (Drisdol 50,000 Intl Units Cap) 1 cap PO Q7D [facility] Last Admin: 04/29/18 08:33 Dose: 1 cap Fluoxetine HCl (Prozac) 20 mg PO DAILY [facility] Last Admin: 05/01/18 09:31 Dose: 20 mg Heparin Sodium (Porcine) (Heparin) 5,000 units SC Q8 [facility]; Protocol Last Admin: 05/01/18 14:04 Dose: 5,000 units Heparin Sodium (Porcine) (Heparin) 2,000 units IVP [facility] [place] [facility]; Protocol Last Admin: 04/30/18 09:37 Dose: 2,000 units Iron Sucrose 100 mg/ Sodium (Chloride) 105 mls @ 210 mls/hr IVPB QWK [facility] Stop: 05/18/18 10:29 Last Admin: 04/27/18 11:13 Dose: 210 mls/hr Midodrine (Proamatine) 10 mg PO [facility] Last Admin: 04/30/18 11:38 Dose: Not Given Multi-Ingredient Ointment (Hydrophor Oint) 0 gm TOP Q12 [facility] Last Admin: 05/01/18 14:00 Dose: 1 appl Pantoprazole Sodium (Protonix Ec Tab) 40 mg PO 0600,1600 [facility] Last Admin: 05/01/18 06:30 Dose: 40 mg Spironolactone (Aldactone) 50 mg PO DAILY [facility] Stop: 05/25/18 10:01 Last Admin: 05/01/18 09:31 Dose: 50 mg Vancomycin HCl (Vancocin 25 Mg/Ml (Oral Use)) 250 mg PO QID [facility]; Protocol Last Admin: 05/01/18 14:01 Dose: 250 mg Vitamin B Complex/Vit C/Folic Acid (Nephro-Bhupinder) 1 tab PO 0800 [facility] Last Admin: 05/01/18 09:32 Dose: 1 tab Zolpidem Tartrate (Ambien) 10 mg PO HS [facility]; Protocol Last Admin: 04/30/18 21:51 Dose: 10 mg - Labs Labs: 04/30/18 06:50 04/30/18 06:50 PT 13.2 SECONDS (9.4-12.5) H 04/03/18 15:44 INR 1.15 04/03/18 15:44 APTT 30.7 Seconds (25.1-36.5) 04/03/18 15:44 - Constitutional Appears: Chronically Ill - Head Exam Head Exam: NORMAL INSPECTION - Neck Exam Neck Exam: absent: Meningismus - Respiratory Exam Respiratory Exam: Decreased Breath Sounds - Cardiovascular Exam Cardiovascular Exam: +S1, +S2 - GI/Abdominal Exam GI & Abdominal Exam: Soft. absent: Tenderness Assessment and Plan - Assessment and Plan (Free Text) Plan: Assessment C. diff. colitis S/P treatment of Influenza A infection S/P UTI with Klebsiella chronic lymphedema of lower extremities without evidence of cellulitis morbid obesity with BMI 52 chronic renal failure on dialysis R/O peripheral vascular disease Plan will continue PO Vancomycin day 9 for 10-14 days continue to monitor clinically
[2018-05-03] MEDS: Pantoprazole 40 mg EC Tab PO SCH ×2 (05:44→17:19)
[2018-05-03] MEDS: Multivitamin Vitamin B Complex (Nephro-Vite) Tab PO SCH (08:31)
[2018-05-03] MEDS: Vancomycin 25 MG/ML PO SCH ×4 (10:30→22:33)
[2018-05-03] MEDS: Petrolatum-Mineral Oil Oint (100gm) TOP SCH ×2 (10:31→23:44)
--- NOTE | 2018-05-03 14:44 | CP.PCM.PN ---
Subjective - Date & Time of Evaluation Date of Evaluation: 05/03/18 Time of Evaluation: 14:44 - Subjective Subjective: Nephrology Consultation Note: Assessment: stable oligoanuric Acute Kidney Injury (N17.9) likely due to ATN, pre-renal state, intrasvasc hypovolemia, impaired renal perfusion, HD 04/05/18: first session. probably ESRD anasarca severe symptomatic anemia due to GI bleed with gastric ulcers mild hyperkalemia and HAGMA, hyperphos hx of cirrhosis and etoh intra-ab lymphadenopathy morbid obesity acute influenza C diff colitis Plan HD tolerated well so far, on MWF schedule. 24 hr crcl: 6 and volume 200 mL. no evidence of renal recovery yet. probably ESRD Maintain hemodynamics stable. Avoid hypotension. Patient not on ACEI/ARB due to recent FELIPE. added midodrine pre HD Monitor Input/Output, daily weights and renal function with basic metabolic panel held phos binders due to diarrhoea PRBC as needed. s/p 1 gram IV iron, now on weekly aranesp/IV iron GI consult, pt on PPI work up for FELIPE and anemia as ordered. GN work up neg hence will defer kidney biopsy. also pt with liver disease and morbidly obese. started weekly vit d consider further work up for ascites. started on aldactone 50 mg/d to reduce portal HTN on antibiotics for c.diff Dose meds/antibiotics for reduced GFR. Avoid fleets enema/magnesium based laxatives. Avoid nephrotoxins/NSAIDs/ iodinated contrast (unless needed emergently) Glycemic control Further work up/management as per primary team she is arranged for outpt HD. Thanks for allowing me to participate in care of your patient. Will follow patient with you. Please call if any Qs. had d/w team Dr Kenji Salmeron Office: [phone] Chief Complaint; fatigue Reason for consult: Acute Kidney Injury HPI: Pt is a 52 F with hx of alcoholism in past, cirrhosis (pt states got better on its own in past) but no regular follow up with PMD presented with complaints of fatigue and tiredness for last few days, found to have severe anemia and FELIPE Denies OTC/herbal meds but NSAIDs as alleve for last few days No recent iodinated contrast exposure. Noted obvious episodes of low BP. reports chronic leg swelling but more now denies smoking or etoh now ROS: c/o swelling in leg. had gastric ulcers on EGD Cardiovascular: No chest pain. Pulmonary: improved shortness of breath but with cough Gastrointestinal: denies abdominal pain No nausea. No vomiting. diarrhoea resol jerrell. Genitourinary: not much UOP All other negative except as mentioned in HPI feels sad that she is still bed-bound Physical Examination: General Appearance: Comfortable, in no acute respiratory distress, co-operative . morbid obese Vitals reviewed and noted as below Head; Atraumatic, normocephalic ENT: no ulcers no thrush. Tongue is midline. Oropharynx: no rash or ulcers. EYES: Pupils are equal, round and reactive to light accommodation. Eye muscles and extraocular movement intact. Sclera is anicteric. Neck; supple no lymphadenopathy, no thyromegaly or bruit Lungs: Normal respiratory rate/effort. Breath sounds bilateral clear Heart: Normal rate. s1s2 normal. No rub or gallop. Extremities: 2-3+ edema. Neurological: Patient is alert, awake and oriented to person, place and time. No focal deficit. Strength bilateral appropriate and equal Skin: Warm and dry. Normal turgor. spider angioma rash upper chest. Palpitation: Normal elasticity for age Abdomen: Abdomen is soft. Bowel sounds +. There is no abdominal tenderness, no guarding/rigidity no organomegaly. limited due to obesity and abd wall edema Psych: normal insight and flat affect/mood MSK: no joint tenderness or swelling. Digits and nails normal, no deformity : kidney or bladder not palpable. has access as permacath Labs/imaging reviewed. Past medical history, past surgical history, family history, social history, allergy reviewed and noted as below Family hx: no hx of CKD. Rest non-contributory fena 0.3% intra-ab lymphadenopathy Objective - Vital Signs/Intake and Output Vital Signs (last 24 hours): Temp Pulse Resp BP Pulse Ox 98.2 F 86 20 115/56 L 98 05/03/18 06:00 05/03/18 06:00 05/03/18 06:00 05/03/18 06:00 05/03/18 06:00 - Medications Medications: Current Medications Acetaminophen (Tylenol 325mg Tab) 650 mg PO Q6 PRN PRN Reason: Fever >100.4 F Last Admin: 04/13/18 05:56 Dose: 650 mg Alprazolam (Xanax) 0.25 mg PO TID PRN; Protocol PRN Reason: Anxiety Last Admin: 04/30/18 15:05 Dose: 0.25 mg Benzonatate (Tessalon Perles) 100 mg PO TID PRN PRN Reason: Cough Last Admin: 04/25/18 15:43 Dose: 100 mg Cyclobenzaprine HCl (Flexeril) 5 mg PO TID [facility] Last Admin: 05/03/18 13:44 Dose: 5 mg Darbepoetin Fletcher (Aranesp) 200 mcg IVP QWK [facility] Last Admin: 04/30/18 09:36 Dose: 200 mcg Ergocalciferol (Drisdol 50,000 Intl Units Cap) 1 cap PO Q7D [facility] Last Admin: 04/29/18 08:33 Dose: 1 cap Fluoxetine HCl (Prozac) 30 mg PO DAILY [facility] Last Admin: 05/03/18 10:30 Dose: 30 mg Heparin Sodium (Porcine) (Heparin) 5,000 units SC Q8 [facility]; Protocol Last Admin: 05/03/18 05:44 Dose: 5,000 units Heparin Sodium (Porcine) (Heparin) 2,000 units IVP MWF [facility]; Protocol Last Admin: 05/03/18 13:43 Dose: 2,000 units Iron Sucrose 100 mg/ Sodium (Chloride) 105 mls @ 210 mls/hr IVPB QWK [facility] Stop: 05/18/18 10:29 Last Admin: 04/27/18 11:13 Dose: 210 mls/hr Midodrine (Proamatine) 10 mg PO MWF [facility] Last Admin: 05/02/18 13:26 Dose: 10 mg Multi-Ingredient Ointment (Hydrophor Oint) 0 gm TOP Q12 [facility] Last Admin: 05/03/18 10:31 Dose: 1 appl Pantoprazole Sodium (Protonix Ec Tab) 40 mg PO 0600,1600 [facility] Last Admin: 05/03/18 05:44 Dose: 40 mg Spironolactone (Aldactone) 50 mg PO DAILY [facility] Stop: 05/25/18 10:01 Last Admin: 05/03/18 10:31 Dose: 50 mg Vancomycin HCl (Vancocin 25 Mg/Ml (Oral Use)) 250 mg PO QID [facility]; Protocol Last Admin: 05/03/18 13:44 Dose: 250 mg Vitamin B Complex/Vit C/Folic Acid (Nephro-Bhupinder) 1 tab PO 0800 [facility] Last Admin: 05/03/18 08:31 Dose: 1 tab Zolpidem Tartrate (Ambien) 10 mg PO HS [facility]; Protocol Last Admin: 05/02/18 21:30 Dose: 10 mg - Labs Labs: 05/02/18 08:04 05/02/18 08:04 PT 13.2 SECONDS (9.4-12.5) H 04/03/18 15:44 INR 1.15 04/03/18 15:44 APTT 30.7 Seconds (25.1-36.5) 04/03/18 15:44
--- NOTE | 2018-05-03 15:54 | CP.PCM.PN ---
Subjective - Date & Time of Evaluation Date of Evaluation: 05/03/18 Time of Evaluation: 09:15 - Subjective Subjective: Comfortable, no fevers, diarrhea is improving, no nausea, no abdominal pain. Objective - Vital Signs/Intake and Output Vital Signs (last 24 hours): Temp Pulse Resp BP Pulse Ox 98.4 F 77 20 112/59 L 99 05/02/18 14:00 05/02/18 14:00 05/02/18 14:00 05/02/18 14:00 05/02/18 14:00 - Medications Medications: Current Medications Acetaminophen (Tylenol 325mg Tab) 650 mg PO Q6 PRN PRN Reason: Fever >100.4 F Last Admin: 04/13/18 05:56 Dose: 650 mg Alprazolam (Xanax) 0.25 mg PO TID PRN; Protocol PRN Reason: Anxiety Last Admin: 04/30/18 15:05 Dose: 0.25 mg Benzonatate (Tessalon Perles) 100 mg PO TID PRN PRN Reason: Cough Last Admin: 04/25/18 15:43 Dose: 100 mg Cyclobenzaprine HCl (Flexeril) 5 mg PO TID [facility] Last Admin: 05/02/18 17:11 Dose: 5 mg Darbepoetin Fletcher (Aranesp) 200 mcg IVP QWK [facility] Last Admin: 04/30/18 09:36 Dose: 200 mcg Ergocalciferol (Drisdol 50,000 Intl Units Cap) 1 cap PO Q7D [facility] Last Admin: 04/29/18 08:33 Dose: 1 cap Fluoxetine HCl (Prozac) 30 mg PO DAILY [facility] Last Admin: 05/02/18 13:25 Dose: 30 mg Heparin Sodium (Porcine) (Heparin) 5,000 units SC Q8 [facility]; Protocol Last Admin: 05/02/18 14:17 Dose: Not Given Heparin Sodium (Porcine) (Heparin) 2,000 units IVP [facility]; Protocol Last Admin: 05/02/18 11:29 Dose: 2,000 units Iron Sucrose 100 mg/ Sodium (Chloride) 105 mls @ 210 mls/hr IVPB QWK [facility] Stop: 05/18/18 10:29 Last Admin: 04/27/18 11:13 Dose: 210 mls/hr Midodrine (Proamatine) 10 mg PO F [facility] Last Admin: 05/02/18 13:26 Dose: 10 mg Multi-Ingredient Ointment (Hydrophor Oint) 0 gm TOP Q12 [facility] Last Admin: 05/02/18 10:58 Dose: Not Given Pantoprazole Sodium (Protonix Ec Tab) 40 mg PO 0600,1600 [facility] Last Admin: 05/02/18 17:11 Dose: 40 mg Spironolactone (Aldactone) 50 mg PO DAILY [facility] Stop: 05/25/18 10:01 Last Admin: 05/02/18 10:57 Dose: Not Given Vancomycin HCl (Vancocin 25 Mg/Ml (Oral Use)) 250 mg PO QID [facility]; Protocol Last Admin: 05/02/18 17:11 Dose: 250 mg Vitamin B Complex/Vit C/Folic Acid (Nephro-Bhupinder) 1 tab PO 0800 [facility] Last Admin: 05/02/18 07:59 Dose: 1 tab Zolpidem Tartrate (Ambien) 10 mg PO HS [facility]; Protocol Last Admin: 04/30/18 21:51 Dose: 10 mg - Labs Labs: 05/02/18 08:04 05/02/18 08:04 PT 13.2 SECONDS (9.4-12.5) H 04/03/18 15:44 INR 1.15 04/03/18 15:44 APTT 30.7 Seconds (25.1-36.5) 04/03/18 15:44 - Constitutional Appears: Chronically Ill - Head Exam Head Exam: NORMAL INSPECTION - Neck Exam Neck Exam: absent: Meningismus - Respiratory Exam Respiratory Exam: Decreased Breath Sounds - Cardiovascular Exam Cardiovascular Exam: +S1, +S2 - GI/Abdominal Exam GI & Abdominal Exam: Soft. absent: Tenderness Assessment and Plan - Assessment and Plan (Free Text) Plan: Assessment C. diff. colitis S/P treatment of Influenza A infection S/P UTI with Klebsiella chronic lymphedema of lower extremities without evidence of cellulitis morbid obesity with BMI 52 chronic renal failure on dialysis R/O peripheral vascular disease Plan will continue PO Vancomycin day 10 for 10-14 days continue to monitor clinically
--- NOTE | 2018-05-03 17:41 | CP.PCM.PN ---
<Robina Garrett - Last Filed: 05/03/18 23:08> Subjective - Date & Time of Evaluation Date of Evaluation: 05/03/18 Time of Evaluation: 16:25 - Subjective Subjective: Robina Garrett, PGY-1 Medicine Progress Note for Dr. Ross Pt was seen and examined this AM at bedside. Pt is scheduled for dialysis tomorrow, she had 1 bout of diarrhea since last night. She states that she was able to sleep through the night and had no acute events. She also states that she is tolerating her diet and is not having any abdominal pain. She denies fevers, chills, cp, sob, cough, abd pain, n/v, c/d, or dysuria. Objective - Vital Signs/Intake and Output Vital Signs (last 24 hours): Temp Pulse Resp BP Pulse Ox 98.2 F 81 20 115/58 L 97 05/03/18 14:00 05/03/18 14:00 05/03/18 14:00 05/03/18 14:00 05/03/18 14:00 - Medications Medications: Current Medications Acetaminophen (Tylenol 325mg Tab) 650 mg PO Q6 PRN PRN Reason: Fever >100.4 F Last Admin: 04/13/18 05:56 Dose: 650 mg Alprazolam (Xanax) 0.25 mg PO TID PRN; Protocol PRN Reason: Anxiety Last Admin: 04/30/18 15:05 Dose: 0.25 mg Benzonatate (Tessalon Perles) 100 mg PO TID PRN PRN Reason: Cough Last Admin: 04/25/18 15:43 Dose: 100 mg Cyclobenzaprine HCl (Flexeril) 5 mg PO TID [facility] Last Admin: 05/03/18 17:19 Dose: 5 mg Darbepoetin Fletcher (Aranesp) 200 mcg IVP QWK [facility] Last Admin: 04/30/18 09:36 Dose: 200 mcg Ergocalciferol (Drisdol 50,000 Intl Units Cap) 1 cap PO Q7D [facility] Last Admin: 04/29/18 08:33 Dose: 1 cap Fluoxetine HCl (Prozac) 40 mg PO DAILY [facility] Heparin Sodium (Porcine) (Heparin) 5,000 units SC Q8 [facility]; Protocol Last Admin: 05/03/18 05:44 Dose: 5,000 units Heparin Sodium (Porcine) (Heparin) 2,000 units IVP [facility] [place]; Protocol Last Admin: 05/03/18 13:43 Dose: 2,000 units Iron Sucrose 100 mg/ Sodium (Chloride) 105 mls @ 210 mls/hr IVPB QWK [facility] Stop: 05/18/18 10:29 Last Admin: 04/27/18 11:13 Dose: 210 mls/hr Midodrine (Proamatine) 10 mg PO [facility] Last Admin: 05/02/18 13:26 Dose: 10 mg Multi-Ingredient Ointment (Hydrophor Oint) 0 gm TOP Q12 [facility] Last Admin: 05/03/18 10:31 Dose: 1 appl Pantoprazole Sodium (Protonix Ec Tab) 40 mg PO 0600,1600 [facility] Last Admin: 05/03/18 17:19 Dose: 40 mg Spironolactone (Aldactone) 50 mg PO DAILY [facility] Stop: 05/25/18 10:01 Last Admin: 05/03/18 10:31 Dose: 50 mg Vancomycin HCl (Vancocin 25 Mg/Ml (Oral Use)) 250 mg PO QID [facility]; Protocol Last Admin: 05/03/18 17:17 Dose: 250 mg Vitamin B Complex/Vit C/Folic Acid (Nephro-Bhupinder) 1 tab PO 0800 [facility] Last Admin: 05/03/18 08:31 Dose: 1 tab Zolpidem Tartrate (Ambien) 10 mg PO HS [facility]; Protocol Last Admin: 05/02/18 21:30 Dose: 10 mg - Labs Labs: 05/02/18 08:04 05/02/18 08:04 PT 13.2 SECONDS (9.4-12.5) H 04/03/18 15:44 INR 1.15 04/03/18 15:44 APTT 30.7 Seconds (25.1-36.5) 04/03/18 15:44 - Constitutional Appears: Non-toxic, No Acute Distress - Head Exam Head Exam: ATRAUMATIC, NORMAL INSPECTION, NORMOCEPHALIC - Eye Exam Eye Exam: EOMI, Normal appearance, PERRL - Respiratory Exam Respiratory Exam: Clear to Ausculation Bilateral, NORMAL BREATHING PATTERN. absent: Accessory Muscle Use, Rales, Rhonchi, Wheezes, Respiratory Distress, Stridor - Cardiovascular Exam Cardiovascular Exam: RRR, +S1, +S2. absent: Gallop, Rubs, Murmur - GI/Abdominal Exam GI & Abdominal Exam: Soft, Normal Bowel Sounds. absent: Firm, Guarding, Rigid, Tenderness - Extremities Exam Extremities Exam: Normal Inspection, Pedal Edema (3+) - Back Exam Back Exam: NORMAL INSPECTION. absent: CVA tenderness (L), CVA tenderness (R) - Neurological Exam Neurological Exam: Alert, Awake, Oriented x3 - Psychiatric Exam Psychiatric exam: Normal Affect, Normal Mood - Skin Skin Exam: Dry, Normal Color, Warm Assessment and Plan - Assessment and Plan (Free Text) Assessment: Pt is a 52 yo F with past medical history liver failure, morbid obesity, and EtOH abuse presents to [facility] [place] for worsening weakness and admitted for management of anemia and FELIPE with metabolic acidosis. Focusing on outpatient HD placement and PT at this time. Pt is awaiting placement for J[facility]. Plan: 1) C. Diff - C. diff antigen and toxin positive - PO vancomycin day 9 out of 10 - had 1 bout of diarrhea last night - Leukocytosis - resolved, WBC now wnl - contact precautions 2) Depression -Psych on consult, Dr. Ramos -continue xanax prn, prozac and ambien 3) Acute renal failure - improved - on HD MWF - Had HD yesterday - Working with block and case maker for outpatient HD setup - Found HD placement, awaiting [facility]NA placement - will get blood work every other day - Renal US is unremarkable - Strict I's and O's - Nephrology on consult, Dr. Salmeron, recs appreciated 4) Chronic lymphedema of B/L legs - Improving - Pt states improvement after multiple HD sessions - podiatry on consult, no further recommendations, local wound care for now - not currently draining/weeping - repeat ext US shows possible right SFA occlusive disease, limited study due to artifact - wound culture grew Enterobacter Cloacae, E. faecalis - superficial bacteria colonizers - PT recommends JENNA, awaiting placement 5) Microcytic anemia - s/p total 11 units pRBCs, 2 FFPs - oral iron started - endoscopy showed 3 non bleeding gastric ulcers, largest one 8mm - Iron studies shows likely iron deficiency - Head CT unremarkable - CTAP shows adenopathy of the hepatic gastric ligament - GI on consult, Dr. Melo - recs appreciated 6) Fever - resolved -afebrile, no WBC -positive flu type A, completed course of tamiflu -completed course of merrem for UTI with klebsiella -CXR showed moderate cardiomegaly, vascular congestion -blood culture shows no growth after 5 days 7) Elevated BNP -BNP 38317 on admission -Echo showed EF of 68%, mild TR/MR, mild pulm HTN, borderline LVH PPX/Diet -protonix, heparin -renal, fiber diet Patient seen and case discussed with attending, Dr. Cody Garrett, PGY-1 <Miko Ross - Last Filed: 05/04/18 07:55> Objective - Vital Signs/Intake and Output Vital Signs (last 24 hours): Temp Pulse Resp BP Pulse Ox 98.2 F 81 20 115/58 L 97 05/03/18 14:00 05/03/18 14:00 05/03/18 14:00 05/03/18 14:00 05/03/18 14:00 - Medications Medications: Current Medications Acetaminophen (Tylenol 325mg Tab) 650 mg PO Q6 PRN PRN Reason: Fever >100.4 F Last Admin: 04/13/18 05:56 Dose: 650 mg Alprazolam (Xanax) 0.25 mg PO TID PRN; Protocol PRN Reason: Anxiety Last Admin: 04/30/18 15:05 Dose: 0.25 mg Benzonatate (Tessalon Perles) 100 mg PO TID PRN PRN Reason: Cough Last Admin: 04/25/18 15:43 Dose: 100 mg Cyclobenzaprine HCl (Flexeril) 5 mg PO TID [facility] Last Admin: 05/03/18 17:19 Dose: 5 mg Darbepoetin Fletcher (Aranesp) 200 mcg IVP QWK [facility] Last Admin: 04/30/18 09:36 Dose: 200 mcg Ergocalciferol (Drisdol 50,000 Intl Units Cap) 1 cap PO Q7D [facility] Last Admin: 04/29/18 08:33 Dose: 1 cap Fluoxetine HCl (Prozac) 40 mg PO DAILY [facility] Heparin Sodium (Porcine) (Heparin) 5,000 units SC Q8 [facility]; Protocol Last Admin: 05/04/18 05:46 Dose: 5,000 units Heparin Sodium (Porcine) (Heparin) 2,000 units IVP MWF [facility]; Protocol Last Admin: 05/03/18 13:43 Dose: 2,000 units Iron Sucrose 100 mg/ Sodium (Chloride) 105 mls @ 210 mls/hr IVPB QWK [facility] Stop: 05/18/18 10:29 Last Admin: 04/27/18 11:13 Dose: 210 mls/hr Midodrine (Proamatine) 10 mg PO MWF [facility] Last Admin: 05/02/18 13:26 Dose: 10 mg Multi-Ingredient Ointment (Hydrophor Oint) 0 gm TOP Q12 [facility] Last Admin: 05/03/18 23:44 Dose: 1 appl Pantoprazole Sodium (Protonix Ec Tab) 40 mg PO 0600,1600 [facility] Last Admin: 05/04/18 05:46 Dose: 40 mg Spironolactone (Aldactone) 50 mg PO DAILY [facility] Stop: 05/25/18 10:01 Last Admin: 05/03/18 10:31 Dose: 50 mg Vancomycin HCl (Vancocin 25 Mg/Ml (Oral Use)) 250 mg PO QID [facility]; Protocol Last Admin: 05/03/18 22:33 Dose: 250 mg Vitamin B Complex/Vit C/Folic Acid (Nephro-Bhupinder) 1 tab PO 0800 [facility] Last Admin: 05/03/18 08:31 Dose: 1 tab Zolpidem Tartrate (Ambien) 10 mg PO HS [facility]; Protocol Last Admin: 05/03/18 22:32 Dose: 10 mg - Labs Labs: 05/04/18 06:20 05/04/18 06:20 PT 13.2 SECONDS (9.4-12.5) H 04/03/18 15:44 INR 1.15 04/03/18 15:44 APTT 30.7 Seconds (25.1-36.5) 04/03/18 15:44 Attending/Attestation - Attestation I have personally seen and examined this patient.: Yes I have fully participated in the care of the patient.: Yes I have reviewed all pertinent clinical information, including history, physical exam and plan: Yes Notes (Text): 05/03/18 52 year old female with past medical history of liver failures and alcohol abuse who initially presented with weakness found to have anemia and FELIPE. GI workup included EGD which showed 3 non bleeding gastric ulcers. Patient is currently on iron and protonix. H/H has been stable. She has been started on hemodialysis. Nephrology is following. Outpatient dialysis has been arranged. She is s/p treatment for flu and UTI. She is on po vanco for CDIF. Diarrhea has improved. She is currently pending [facility] placement for d/c planning. Will follow up with CMx/Sw. Miko Ross MD Hospitalist.
--- NOTE | 2018-05-03 19:04 | PN ---
DATE: 05/03/2018 SUBJECTIVE: Shortly, the patient is a 52-year-old female with multiple medical issues. The patient is in the hospital for past 4-6 weeks. The patient has a lot of medical comorbidities, please see medical team notes for more detailed information. This policy writer got involved into the patient care because of depression, anxiety, and inability to sleep. Please see previous notes for more detailed information. The patient was followed up by this policy writer to make sure that she tolerates Prozac well, which was switched from trazodone. The patient presented more energetic. The patient presented less anxious. Affect was more reactive, mood congruent. The patient reports that most likely Prozac is more efficient for her. The patient reported that her mood is fine. She works with the physical therapy three times already. The patient reported that right now, she wants to get better and wants to participate in physical therapy. LABORATORY DATA: Reviewed. MEDICATIONS: Reviewed. Discussed with the nursing staff. As per nursing staff, the patient is compliant with the treatment, compliant with the medications, and participated with physical therapy session. MENTAL STATUS EXAMINATION: The patient presented to be alert, pleasant, and cooperative. Fair eye contact. Mood described "I feel little better." Affect was more reactive and mood congruent. Thought process coherent and goal directed. Thought content, the patient denied visual, auditory, or tactile hallucinations. Denies paranoid ideation. The patient denied thoughts of harming herself or others. Denied intent or plan. Insight and judgment seems to be improving. Impulses are well controlled. IMPRESSION: Most likely, the patient has adjustment disorder with depressed and anxious mood versus mood disorder due to general medical condition, rule out major depressive disorder and generalized anxiety disorder, but it is questionable. PLAN: Continue current management. Continue current medication. Prozac will be optimized. This policy writer would continue Xanax as well as Ambien. We will follow up every other day and advise accordingly. Thank you very much for letting me to participate in the care of your patient. Should you have any questions, give me a call back. Rachel Maradiaga MD MTDD
[2018-05-04] MEDS: Pantoprazole 40 mg EC Tab PO SCH ×2 (05:46→15:29)
[2018-05-04 06:56] LABS: BASO # 0.03 K/mm3 (0.0-2.0); BASO % 0.4 % (0.0-3.0); EOS # 0.6 (0.0-0.7); EOS % 7.9 % (1.5-5.0); GRAN # 5.09 (1.4-6.5); HEMOGLOBIN 9.6 g/dL (12.0-16.0); LYMPH # 1.2 (1.2-3.4); LYMPH % 15.2 % (22.0-35.0); MEAN CELL VOLUME 89.7 fl (80.0-105.0); MEAN CORPUSCULAR HEMOGLOBIN 27.4 pg (25.0-35.0); MEAN CORPUSCULAR HGB CONC 30.6 g/dl (31.0-37.0); MEAN PLATELET VOLUME 8.9 fl (7.0-11.0); MONO # 0.8 (0.1-0.6); MONO % 10.5 % (1.0-6.0); RBC 3.5 10^6/uL (3.5-6.1); WHITE BLOOD COUNT 7.7 10^3/uL (4.5-11.0)
[2018-05-04 07:03] LABS: ALB/GLOB RATIO 0.6 (1.1-1.8); ALBUMIN 2.1 g/dL (3.0-4.8); CALCIUM 8.2 mg/dL (8.4-10.5)
[2018-05-04] MEDS: Multivitamin Vitamin B Complex (Nephro-Vite) Tab PO SCH (08:17)
[2018-05-04] MEDS: Petrolatum-Mineral Oil Oint (100gm) TOP SCH ×2 (10:45→21:21)
[2018-05-04] MEDS: Vancomycin 25 MG/ML PO SCH ×4 (10:46→21:22)
--- NOTE | 2018-05-04 14:02 | CP.PCM.PN ---
<Robina Garrett - Last Filed: 05/05/18 01:16> Subjective - Date & Time of Evaluation Date of Evaluation: 05/05/18 Time of Evaluation: 01:17 - Subjective Subjective: Robina Garrett, PGY-1 Medicine Progress Note for Dr. Ross Pt was seen and examined this AM at bedside. Pt is scheduled for dialysis tomorrow, she had 2 bouts of diarrhea since last night. She states that she was able to sleep through the night and had no acute events. She also states that she is tolerating her diet and is not having any abdominal pain. She denies fevers, chills, cp, sob, cough, abd pain, n/v, c/d, or dysuria. She does admit to R leg pain which is related to pulling her muscle with PT yesterday. Objective - Vital Signs/Intake and Output Vital Signs (last 24 hours): Temp Pulse Resp BP Pulse Ox 98.1 F 83 20 108/59 L 98 05/04/18 06:00 05/04/18 06:00 05/04/18 06:00 05/04/18 06:00 05/04/18 06:00 - Medications Medications: Current Medications Acetaminophen (Tylenol 325mg Tab) 650 mg PO Q6 PRN PRN Reason: Fever >100.4 F Last Admin: 04/13/18 05:56 Dose: 650 mg Alprazolam (Xanax) 0.25 mg PO TID PRN; Protocol PRN Reason: Anxiety Last Admin: 04/30/18 15:05 Dose: 0.25 mg Benzonatate (Tessalon Perles) 100 mg PO TID PRN PRN Reason: Cough Last Admin: 04/25/18 15:43 Dose: 100 mg Cyclobenzaprine HCl (Flexeril) 5 mg PO TID [facility] Last Admin: 05/04/18 13:01 Dose: 5 mg Darbepoetin Fletcher (Aranesp) 200 mcg IVP QWK [facility] Last Admin: 04/30/18 09:36 Dose: 200 mcg Ergocalciferol (Drisdol 50,000 Intl Units Cap) 1 cap PO Q7D [facility] Last Admin: 04/29/18 08:33 Dose: 1 cap Fluoxetine HCl (Prozac) 40 mg PO DAILY [facility] Last Admin: 05/04/18 10:46 Dose: Not Given Heparin Sodium (Porcine) (Heparin) 5,000 units SC Q8 [facility]; Protocol Last Admin: 05/04/18 13:01 Dose: 5,000 units Heparin Sodium (Porcine) (Heparin) 2,000 units IVP [facility]; Protocol Last Admin: 05/04/18 10:18 Dose: 2,000 units Iron Sucrose 100 mg/ Sodium (Chloride) 105 mls @ 210 mls/hr IVPB QWK [facility] Stop: 05/18/18 10:29 Last Admin: 05/04/18 12:59 Dose: 210 mls/hr Midodrine (Proamatine) 10 mg PO MWF [facility] Last Admin: 05/02/18 13:26 Dose: 10 mg Multi-Ingredient Ointment (Hydrophor Oint) 0 gm TOP Q12 [facility] Last Admin: 05/04/18 10:45 Dose: Not Given Pantoprazole Sodium (Protonix Ec Tab) 40 mg PO 0600,1600 [facility] Last Admin: 05/04/18 05:46 Dose: 40 mg Spironolactone (Aldactone) 50 mg PO DAILY [facility] Stop: 05/25/18 10:01 Last Admin: 05/04/18 10:45 Dose: Not Given Vancomycin HCl (Vancocin 25 Mg/Ml (Oral Use)) 250 mg PO QID [facility]; Protocol Last Admin: 05/04/18 13:34 Dose: 250 mg Vitamin B Complex/Vit C/Folic Acid (Nephro-Bhupinder) 1 tab PO 0800 [facility] Last Admin: 05/04/18 08:17 Dose: 1 tab Zolpidem Tartrate (Ambien) 10 mg PO HS [facility]; Protocol Last Admin: 05/03/18 22:32 Dose: 10 mg - Labs Labs: 05/04/18 06:20 05/04/18 06:20 PT 13.2 SECONDS (9.4-12.5) H 04/03/18 15:44 INR 1.15 04/03/18 15:44 APTT 30.7 Seconds (25.1-36.5) 04/03/18 15:44 - Constitutional Appears: Non-toxic, No Acute Distress - Head Exam Head Exam: ATRAUMATIC, NORMAL INSPECTION, NORMOCEPHALIC - Eye Exam Eye Exam: EOMI, Normal appearance, PERRL - Respiratory Exam Respiratory Exam: Clear to Ausculation Bilateral, NORMAL BREATHING PATTERN. absent: Accessory Muscle Use, Rales, Rhonchi, Wheezes - Cardiovascular Exam Cardiovascular Exam: RRR, +S1, +S2. absent: Gallop, Rubs - GI/Abdominal Exam GI & Abdominal Exam: Soft, Normal Bowel Sounds. absent: Firm, Guarding, Rigid, Tenderness - Extremities Exam Extremities Exam: Pedal Edema (3+), Tenderness. absent: Calf Tenderness - Back Exam Back Exam: NORMAL INSPECTION. absent: CVA tenderness (L), CVA tenderness (R) - Neurological Exam Neurological Exam: Alert, Awake, Oriented x3 - Psychiatric Exam Psychiatric exam: Normal Affect, Normal Mood - Skin Skin Exam: Dry, Normal Color, Warm Assessment and Plan - Assessment and Plan (Free Text) Assessment: Pt is a 52 yo F with past medical history liver failure, morbid obesity, and EtOH abuse [place] [facility] for [place] weakness and admitted for management of anemia and FELIPE with metabolic acidosis. Focusing on outpatient HD placement and PT at this time. Pt is awaiting placement for [facility]. Plan: 1) C. Diff - C. diff antigen and toxin positive - PO vancomycin day 10 out of 10 - had 2 bouts of diarrhea last night - Leukocytosis - resolved, WBC now wnl - contact precautions 2) Depression -Psych on consult, Dr. Ramos -continue xanax prn, prozac and ambien 3) Acute renal failure - improved - on HD MWF - Had HD yesterday - Working with business case analyst for outpatient HD setup - Found HD placement, awaiting [facility] placement - will get blood work every other day - Renal US is unremarkable - Strict I's and O's - Nephrology on consult, Dr. Salmeron, recs appreciated 4) Chronic lymphedema of B/L legs - Improving - Pt states improvement after multiple HD sessions - podiatry on consult, no further recommendations, local wound care for now - not currently draining/weeping - repeat ext US shows possible right SFA occlusive disease, limited study due to artifact - wound culture grew Enterobacter Cloacae, E. faecalis - superficial bacteria colonizers - PT recommends J[facility], awaiting placement 5) Microcytic anemia - s/p total 11 units pRBCs, 2 FFPs - oral iron started - endoscopy showed 3 non bleeding gastric ulcers, largest one 8mm - Iron studies shows likely iron deficiency - Head CT unremarkable - CTAP shows adenopathy of the hepatic gastric ligament - GI on consult, Dr. Melo - recs appreciated 6) Fever - resolved -afebrile, no WBC -positive flu type A, completed course of tamiflu -completed course of merrem for UTI with klebsiella -CXR showed moderate cardiomegaly, vascular congestion -blood culture shows no growth after 5 days 7) Elevated BNP -BNP 36295 on admission -Echo showed EF of 68%, mild TR/MR, mild pulm HTN, borderline LVH PPX/Diet -protonix, heparin -renal, fiber diet Patient seen and case discussed with attending, Dr. Cody Garrett, PGY-1 <Miko Ross - Last Filed: 05/05/18 07:40> Objective - Vital Signs/Intake and Output Vital Signs (last 24 hours): Temp Pulse Resp BP Pulse Ox 98.7 F 82 16 115/53 L 94 L 05/04/18 22:26 05/04/18 22:26 05/04/18 22:26 05/04/18 22:26 05/04/18 22:26 - Medications Medications: Current Medications Acetaminophen (Tylenol 325mg Tab) 650 mg PO Q6 PRN PRN Reason: Fever >100.4 F Last Admin: 04/13/18 05:56 Dose: 650 mg Alprazolam (Xanax) 0.25 mg PO TID PRN; Protocol PRN Reason: Anxiety Last Admin: 04/30/18 15:05 Dose: 0.25 mg Benzonatate (Tessalon Perles) 100 mg PO TID PRN PRN Reason: Cough Last Admin: 04/25/18 15:43 Dose: 100 mg Cyclobenzaprine HCl (Flexeril) 5 mg PO TID [facility] Last Admin: 05/04/18 17:30 Dose: 5 mg Darbepoetin Fletcher (Aranesp) 200 mcg IVP QWK [facility] Last Admin: 04/30/18 09:36 Dose: 200 mcg Ergocalciferol (Drisdol 50,000 Intl Units Cap) 1 cap PO Q7D [facility] Last Admin: 04/29/18 08:33 Dose: 1 cap Fluoxetine HCl (Prozac) 40 mg PO DAILY [facility] Last Admin: 05/04/18 10:46 Dose: Not Given Heparin Sodium (Porcine) (Heparin) 5,000 units SC Q8 [facility]; Protocol Last Admin: 05/05/18 06:17 Dose: 5,000 units Heparin Sodium (Porcine) (Heparin) 2,000 units IVP F [facility]; Protocol Last Admin: 05/04/18 10:18 Dose: 2,000 units Iron Sucrose 100 mg/ Sodium (Chloride) 105 mls @ 210 mls/hr IVPB QWK [facility] Stop: 05/18/18 10:29 Last Admin: 05/04/18 12:59 Dose: 210 mls/hr Midodrine (Proamatine) 10 mg PO MWF [facility] Last Admin: 05/04/18 08:14 Dose: 10 mg Multi-Ingredient Ointment (Hydrophor Oint) 0 gm TOP Q12 [facility] Last Admin: 05/04/18 21:21 Dose: 1 appl Pantoprazole Sodium (Protonix Ec Tab) 40 mg PO 0600,1600 [facility] Last Admin: 05/05/18 06:17 Dose: 40 mg Spironolactone (Aldactone) 50 mg PO DAILY [facility] Stop: 05/25/18 10:01 Last Admin: 05/04/18 10:45 Dose: Not Given Vancomycin HCl (Vancocin 25 Mg/Ml (Oral Use)) 250 mg PO QID [facility]; Protocol Last Admin: 05/04/18 21:22 Dose: 250 mg Vitamin B Complex/Vit C/Folic Acid (Nephro-Bhupinder) 1 tab PO 0800 [facility] Last Admin: 05/04/18 08:17 Dose: 1 tab Zolpidem Tartrate (Ambien) 10 mg PO HS [facility]; Protocol Last Admin: 05/04/18 21:20 Dose: 10 mg - Labs Labs: 05/04/18 06:20 05/04/18 06:20 PT 13.2 SECONDS (9.4-12.5) H 04/03/18 15:44 INR 1.15 04/03/18 15:44 APTT 30.7 Seconds (25.1-36.5) 04/03/18 15:44 Attending/Attestation - Attestation I have personally seen and examined this patient.: Yes I have fully participated in the care of the patient.: Yes I have reviewed all pertinent clinical information, including history, physical exam and plan: Yes Notes (Text): 05/04/18 52 year old female with past medical history of liver failures and alcohol abuse who initially presented with weakness found to have anemia and FELIPE. GI workup included EGD which showed 3 non bleeding gastric ulcers. Patient is currently on iron and protonix. H/H has been stable. Continue with hemodialysis as per nephrology. Outpatient dialysis has been arranged. She is s/p treatment for flu and UTI. She is on po vanco for CDIF. Diarrhea has improved. She is currently pending [facility] placement for d/c planning. Miko Ross MD Hospitalist.
--- NOTE | 2018-05-04 15:18 | CP.PCM.PN ---
Subjective - Date & Time of Evaluation Date of Evaluation: 05/04/18 Time of Evaluation: 15:18 - Subjective Subjective: Nephrology Consultation Note: Assessment: stable oligoanuric Acute Kidney Injury (N17.9) likely due to ATN, pre-renal state, intrasvasc hypovolemia, impaired renal perfusion, HD 04/05/18: first session. probably ESRD anasarca severe symptomatic anemia due to GI bleed with gastric ulcers mild hyperkalemia and HAGMA, hyperphos hx of cirrhosis and etoh intra-ab lymphadenopathy morbid obesity acute influenza C diff colitis Plan HD tolerated well so far, on MWF schedule. 24 hr crcl: 6 and volume 200 mL. no evidence of renal recovery yet. probably ESRD Maintain hemodynamics stable. Avoid hypotension. Patient not on ACEI/ARB due to recent FELIPE. added midodrine pre HD Monitor Input/Output, daily weights and renal function with basic metabolic panel held phos binders due to diarrhoea PRBC as needed. s/p 1 gram IV iron, now on weekly aranesp/IV iron GI consult, pt on PPI work up for FELIPE and anemia as ordered. GN work up neg hence will defer kidney biopsy. also pt with liver disease and morbidly obese. started weekly vit d consider further work up for ascites. started on aldactone 50 mg/d to reduce portal HTN on antibiotics for c.diff Dose meds/antibiotics for reduced GFR. Avoid fleets enema/magnesium based laxatives. Avoid nephrotoxins/NSAIDs/ iodinated contrast (unless needed emergently) Glycemic control Further work up/management as per primary team she is arranged for outpt HD. Thanks for allowing me to participate in care of your patient. Will follow patient with you. Please call if any Qs. had d/w team Dr Kenji Salmeron Office: [phone] Chief Complaint; fatigue Reason for consult: Acute Kidney Injury HPI: Pt is a 52 F with hx of alcoholism in past, cirrhosis (pt states got better on its own in past) but no regular follow up with PMD presented with complaints of fatigue and tiredness for last few days, found to have severe anemia and FELIPE Denies OTC/herbal meds but NSAIDs as alleve for last few days No recent iodinated contrast exposure. Noted obvious episodes of low BP. reports chronic leg swelling but more now denies smoking or etoh now ROS: c/o swelling in leg. had gastric ulcers on EGD Cardiovascular: No chest pain. Pulmonary: improved shortness of breath but with cough Gastrointestinal: denies abdominal pain No nausea. No vomiting. diarrhoea resol jerrell. Genitourinary: not much UOP All other negative except as mentioned in HPI feels sad that she is still bed-bound Physical Examination: General Appearance: Comfortable, in no acute respiratory distress, co-operative . morbid obese Vitals reviewed and noted as below Head; Atraumatic, normocephalic ENT: no ulcers no thrush. Tongue is midline. Oropharynx: no rash or ulcers. EYES: Pupils are equal, round and reactive to light accommodation. Eye muscles and extraocular movement intact. Sclera is anicteric. Neck; supple no lymphadenopathy, no thyromegaly or bruit Lungs: Normal respiratory rate/effort. Breath sounds bilateral clear Heart: Normal rate. s1s2 normal. No rub or gallop. Extremities: 2-3+ edema. Neurological: Patient is alert, awake and oriented to person, place and time. No focal deficit. Strength bilateral appropriate and equal Skin: Warm and dry. Normal turgor. spider angioma rash upper chest. Palpitation: Normal elasticity for age Abdomen: Abdomen is soft. Bowel sounds +. There is no abdominal tenderness, no guarding/rigidity no organomegaly. limited due to obesity and abd wall edema Psych: normal insight and flat affect/mood MSK: no joint tenderness or swelling. Digits and nails normal, no deformity : kidney or bladder not palpable. has access as permacath Labs/imaging reviewed. Past medical history, past surgical history, family history, social history, allergy reviewed and noted as below Family hx: no hx of CKD. Rest non-contributory fena 0.3% intra-ab lymphadenopathy Objective - Vital Signs/Intake and Output Vital Signs (last 24 hours): Temp Pulse Resp BP Pulse Ox 98.6 F 81 20 98/51 L 98 05/04/18 14:00 05/04/18 14:00 05/04/18 14:00 05/04/18 14:00 05/04/18 14:00 - Medications Medications: Current Medications Acetaminophen (Tylenol 325mg Tab) 650 mg PO Q6 PRN PRN Reason: Fever >100.4 F Last Admin: 04/13/18 05:56 Dose: 650 mg Alprazolam (Xanax) 0.25 mg PO TID PRN; Protocol PRN Reason: Anxiety Last Admin: 04/30/18 15:05 Dose: 0.25 mg Benzonatate (Tessalon Perles) 100 mg PO TID PRN PRN Reason: Cough Last Admin: 04/25/18 15:43 Dose: 100 mg Cyclobenzaprine HCl (Flexeril) 5 mg PO TID [facility] Last Admin: 05/04/18 14:06 Dose: 5 mg Darbepoetin Fletcher (Aranesp) 200 mcg IVP QWK [facility] Last Admin: 04/30/18 09:36 Dose: 200 mcg Ergocalciferol (Drisdol 50,000 Intl Units Cap) 1 cap PO Q7D [facility] Last Admin: 04/29/18 08:33 Dose: 1 cap Fluoxetine HCl (Prozac) 40 mg PO DAILY [facility] Last Admin: 05/04/18 10:46 Dose: Not Given Heparin Sodium (Porcine) (Heparin) 5,000 units SC Q8 [facility]; Protocol Last Admin: 05/04/18 13:01 Dose: 5,000 units Heparin Sodium (Porcine) (Heparin) 2,000 units IVP MWF [facility]; Protocol Last Admin: 05/04/18 10:18 Dose: 2,000 units Iron Sucrose 100 mg/ Sodium (Chloride) 105 mls @ 210 mls/hr IVPB QWK [facility] Stop: 05/18/18 10:29 Last Admin: 05/04/18 12:59 Dose: 210 mls/hr Midodrine (Proamatine) 10 mg PO MWF [facility] Last Admin: 05/04/18 08:14 Dose: 10 mg Multi-Ingredient Ointment (Hydrophor Oint) 0 gm TOP Q12 [facility] Last Admin: 05/04/18 10:45 Dose: Not Given Pantoprazole Sodium (Protonix Ec Tab) 40 mg PO 0600,1600 [facility] Last Admin: 05/04/18 05:46 Dose: 40 mg Spironolactone (Aldactone) 50 mg PO DAILY [facility] Stop: 05/25/18 10:01 Last Admin: 05/04/18 10:45 Dose: Not Given Vancomycin HCl (Vancocin 25 Mg/Ml (Oral Use)) 250 mg PO QID [facility]; Protocol Last Admin: 05/04/18 13:34 Dose: 250 mg Vitamin B Complex/Vit C/Folic Acid (Nephro-Bhupinder) 1 tab PO 0800 [facility] Last Admin: 05/04/18 08:17 Dose: 1 tab Zolpidem Tartrate (Ambien) 10 mg PO HS [facility]; Protocol Last Admin: 05/03/18 22:32 Dose: 10 mg - Labs Labs: 05/04/18 06:20 05/04/18 06:20 PT 13.2 SECONDS (9.4-12.5) H 04/03/18 15:44 INR 1.15 04/03/18 15:44 APTT 30.7 Seconds (25.1-36.5) 04/03/18 15:44
--- NOTE | 2018-05-04 16:41 | CP.PCM.PN ---
Subjective - Date & Time of Evaluation Date of Evaluation: 05/04/18 Time of Evaluation: 15:00 - Subjective Subjective: Comfortable in bed, no fevers, no abdominal pain, diarrhea is improving. Objective - Vital Signs/Intake and Output Vital Signs (last 24 hours): Temp Pulse Resp BP Pulse Ox 98.2 F 81 20 115/58 L 97 05/03/18 14:00 05/03/18 14:00 05/03/18 14:00 05/03/18 14:00 05/03/18 14:00 - Medications Medications: Current Medications Acetaminophen (Tylenol 325mg Tab) 650 mg PO Q6 PRN PRN Reason: Fever >100.4 F Last Admin: 04/13/18 05:56 Dose: 650 mg Alprazolam (Xanax) 0.25 mg PO TID PRN; Protocol PRN Reason: Anxiety Last Admin: 04/30/18 15:05 Dose: 0.25 mg Benzonatate (Tessalon Perles) 100 mg PO TID PRN PRN Reason: Cough Last Admin: 04/25/18 15:43 Dose: 100 mg Cyclobenzaprine HCl (Flexeril) 5 mg PO TID [facility] Last Admin: 05/03/18 13:44 Dose: 5 mg Darbepoetin Fletcher (Aranesp) 200 mcg IVP QWK [facility] Last Admin: 04/30/18 09:36 Dose: 200 mcg Ergocalciferol (Drisdol 50,000 Intl Units Cap) 1 cap PO Q7D [facility] Last Admin: 04/29/18 08:33 Dose: 1 cap Fluoxetine HCl (Prozac) 30 mg PO DAILY [facility] Last Admin: 05/03/18 10:30 Dose: 30 mg Heparin Sodium (Porcine) (Heparin) 5,000 units SC Q8 [facility]; Protocol Last Admin: 05/03/18 05:44 Dose: 5,000 units Heparin Sodium (Porcine) (Heparin) 2,000 units IVP [facility]; Protocol Last Admin: 05/03/18 13:43 Dose: 2,000 units Iron Sucrose 100 mg/ Sodium (Chloride) 105 mls @ 210 mls/hr IVPB QWK [facility] Stop: 05/18/18 10:29 Last Admin: 04/27/18 11:13 Dose: 210 mls/hr Midodrine (Proamatine) 10 mg PO F [facility] Last Admin: 05/02/18 13:26 Dose: 10 mg Multi-Ingredient Ointment (Hydrophor Oint) 0 gm TOP Q12 [facility] Last Admin: 05/03/18 10:31 Dose: 1 appl Pantoprazole Sodium (Protonix Ec Tab) 40 mg PO 0600,1600 [facility] Last Admin: 05/03/18 05:44 Dose: 40 mg Spironolactone (Aldactone) 50 mg PO DAILY [facility] Stop: 05/25/18 10:01 Last Admin: 05/03/18 10:31 Dose: 50 mg Vancomycin HCl (Vancocin 25 Mg/Ml (Oral Use)) 250 mg PO QID [facility]; Protocol Last Admin: 05/03/18 13:44 Dose: 250 mg Vitamin B Complex/Vit C/Folic Acid (Nephro-Bhupinder) 1 tab PO 0800 [facility] Last Admin: 05/03/18 08:31 Dose: 1 tab Zolpidem Tartrate (Ambien) 10 mg PO HS [facility]; Protocol Last Admin: 05/02/18 21:30 Dose: 10 mg - Labs Labs: 05/02/18 08:04 05/02/18 08:04 PT 13.2 SECONDS (9.4-12.5) H 04/03/18 15:44 INR 1.15 04/03/18 15:44 APTT 30.7 Seconds (25.1-36.5) 04/03/18 15:44 - Constitutional Appears: No Acute Distress, Chronically Ill - Head Exam Head Exam: NORMAL INSPECTION - Respiratory Exam Respiratory Exam: Decreased Breath Sounds - Cardiovascular Exam Cardiovascular Exam: +S1, +S2 - GI/Abdominal Exam GI & Abdominal Exam: Soft. absent: Tenderness Assessment and Plan - Assessment and Plan (Free Text) Plan: Assessment C. diff. colitis S/P treatment of Influenza A infection S/P UTI with Klebsiella chronic lymphedema of lower extremities without evidence of cellulitis morbid obesity with BMI 52 chronic renal failure on dialysis R/O peripheral vascular disease Plan will continue PO Vancomycin day 11 for up to 14 days continue to monitor clinically
[2018-05-04 17:08] LABS: HEPATITIS B SURFACE AG Negative (NEGATIVE)
[2018-05-04 17:13] LABS: HEPATITIS B CORE AB NEGATIVE (NEGATIVE)
[2018-05-05] MEDS: Pantoprazole 40 mg EC Tab PO SCH ×2 (06:17→18:08)
--- NOTE | 2018-05-05 09:23 | CP.PCM.CON ---
<Freddy Anaya - Last Filed: 05/05/18 09:07> History of Present Illness - History of Present Illness History of Present Illness: Podiatry Consult: Dr. Montalvo 52 y/o F patient with PMHx of CHF, former alcohol abuse, depression, gastric surgery, morbid obesity seen and evaluated for R leg burning pain. Patient is AAO X 3 and NAD. Patient was sleeping comfortably in her bed. She states that her R leg started to get burning sensation 2-3 days ago. She states that it's the same since it started. She denies any trauma or injury to her leg. She denies any other pedal complaints at this time. Denies any recent N/V/F/C/CP. PMHx: CHF, former alcohol abuse, depression, gastric surgery, morbid obesity PSHx: Gastric surgery Allergies: NKDA SHx: Former alcohol abuse, denies elicit drug use, denies tobacco use Review of Systems - Review of Systems Review of Systems: As per HPI - Constitutional Constitutional: As Per HPI Past Patient History - Past Social History Smoking Status: Former Smoker - CARDIAC Hx Congestive Heart Failure: Yes - NEUROLOGICAL Hx Neurological Disorder: No - HEENT Hx HEENT Problems: No - RENAL Hx Renal Failure: Yes - HEMATOLOGICAL/ONCOLOGICAL Hx Cirrhosis: Yes - INTEGUMENTARY Hx Dermatological Problems: No - MUSCULOSKELETAL/RHEUMATOLOGICAL Hx Musculoskeletal Disorders: No Hx Falls: Yes - GASTROINTESTINAL Hx Gastrointestinal Disorders: No - GENITOURINARY/GYNECOLOGICAL Hx Genitourinary Disorders: No - PSYCHIATRIC Hx Psychophysiologic Disorder: No Hx Depression: Yes Hx Substance Use: No - SURGICAL HISTORY Hx Surgeries: Yes Hx Cholecystectomy: Yes - ANESTHESIA Hx Anesthesia: Yes Meds Allergies/Adverse Reactions: Allergies Allergy/AdvReac Type Severity Reaction Status Date / Time No Known Allergies Allergy Verified 04/03/18 14:56 - Medications Medications: Current Medications Acetaminophen (Tylenol 325mg Tab) 650 mg PO Q6 PRN PRN Reason: Fever >100.4 F Last Admin: 04/13/18 05:56 Dose: 650 mg Alprazolam (Xanax) 0.25 mg PO TID PRN; Protocol PRN Reason: Anxiety Last Admin: 04/30/18 15:05 Dose: 0.25 mg Benzonatate (Tessalon Perles) 100 mg PO TID PRN PRN Reason: Cough Last Admin: 04/25/18 15:43 Dose: 100 mg Cyclobenzaprine HCl (Flexeril) 5 mg PO TID [facility] Last Admin: 05/04/18 17:30 Dose: 5 mg Darbepoetin Fletcher (Aranesp) 200 mcg IVP QWK [facility] Last Admin: 04/30/18 09:36 Dose: 200 mcg Ergocalciferol (Drisdol 50,000 Intl Units Cap) 1 cap PO Q7D [facility] Last Admin: 04/29/18 08:33 Dose: 1 cap Fluoxetine HCl (Prozac) 40 mg PO DAILY [facility] Last Admin: 05/04/18 10:46 Dose: Not Given Heparin Sodium (Porcine) (Heparin) 5,000 units SC Q8 [facility]; Protocol Last Admin: 05/05/18 06:17 Dose: 5,000 units Heparin Sodium (Porcine) (Heparin) 2,000 units IVP MWF [facility]; Protocol Last Admin: 05/04/18 10:18 Dose: 2,000 units Iron Sucrose 100 mg/ Sodium (Chloride) 105 mls @ 210 mls/hr IVPB QWK [facility] Stop: 05/18/18 10:29 Last Admin: 05/04/18 12:59 Dose: 210 mls/hr Midodrine (Proamatine) 10 mg PO MWF [facility] Last Admin: 05/04/18 08:14 Dose: 10 mg Multi-Ingredient Ointment (Hydrophor Oint) 0 gm TOP Q12 [facility] Last Admin: 05/04/18 21:21 Dose: 1 appl Mupirocin (Bactroban Ointment) 1 gm TOP BID [facility] Pantoprazole Sodium (Protonix Ec Tab) 40 mg PO 0600,1600 [facility] Last Admin: 05/05/18 06:17 Dose: 40 mg Spironolactone (Aldactone) 50 mg PO DAILY [facility] Stop: 05/25/18 10:01 Last Admin: 05/04/18 10:45 Dose: Not Given Vancomycin HCl (Vancocin 25 Mg/Ml (Oral Use)) 250 mg PO QID [facility]; Protocol Last Admin: 05/04/18 21:22 Dose: 250 mg Vitamin B Complex/Vit C/Folic Acid (Nephro-Bhupinder) 1 tab PO 0800 [facility] Last Admin: 05/04/18 08:17 Dose: 1 tab Zolpidem Tartrate (Ambien) 10 mg PO HS [facility]; Protocol Last Admin: 05/04/18 21:20 Dose: 10 mg Physical Exam - Constitutional Appears: Well, Non-toxic, No Acute Distress - Head Exam Head Exam: ATRAUMATIC, NORMOCEPHALIC - Extremities Exam Additional comments: B/L lower extremity exam: Vascular: DP/PT non palpable secondary to edema, Cap refill < 3 seconds, Temp gradient warm to cool, no pedal hair present, +2 pitting edema to bilateral lower extremities beginning at the tibial tuberosity and extending distally to the digits Neuro: Gross sensation intact, protective sensation diminished. Derm: No open lesions, No clinical signs of active infection. b/l heels looksmildly erythematous. No Calf erythema noted. MSK: Tenderness to palpation of the R calf, no gross deformities noted, MMT 4/5 to all groups. - Neurological Exam Neurological exam: Alert, Oriented x3 - Psychiatric Exam Psychiatric exam: Normal Affect, Normal Mood Results - Vital Signs Recent Vital Signs: Last Vital Signs Temp 98.9 F 05/05/18 06:00 Pulse 80 05/05/18 06:00 Resp 18 05/05/18 06:00 BP 98/52 L 05/05/18 06:00 Pulse Ox 95 05/05/18 06:00 - Labs Result Diagrams: 05/04/18 06:20 05/04/18 06:20 Labs: Laboratory Results - last 24 hr 05/04/18 05/04/18 09:30 09:30 Hep Bs Antigen Negative Hep Bs Antibody Negative Hep B Core IgM Ab Negative Assessment & Plan - Assessment and Plan (Free Text) Assessment: 52 y/o F patient with PMHx of alcohol abuse, depression, gastric surgery, morbid obesity seen and evaluated for R leg burning pain. Plan: Patient seen and evaluated with all questions and concerns addressed by Dr Chelsy Montalvo Plan discussed with Dr. Montalvo Chart, vitals, labs reviewed; afebrile, absent leukocytosis B/L LE US venous(04/03); no evidence of DVT to bilateral lower extremities B/L LE US arterial (04/08): Possible right SFA occlusion. Ordered new venous duplex LE. Ordered multipodus boot. Patient to apply the multipodus boot all the times while in bed. Applied optifoam and kerlix to b/l heel Podiatry sign off the patient Thank you for the consult and allowing us to partake in the care of this patient - Date & Time Date: 05/05/18 Time: 09:24 <Bart Montalvo - Last Filed: 05/05/18 11:16> Meds - Medications Medications: Current Medications Acetaminophen (Tylenol 325mg Tab) 650 mg PO Q6 PRN PRN Reason: Fever >100.4 F Last Admin: 04/13/18 05:56 Dose: 650 mg Alprazolam (Xanax) 0.25 mg PO TID PRN; Protocol PRN Reason: Anxiety Last Admin: 04/30/18 15:05 Dose: 0.25 mg Benzonatate (Tessalon Perles) 100 mg PO TID PRN PRN Reason: Cough Last Admin: 05/05/18 10:57 Dose: 100 mg Cyclobenzaprine HCl (Flexeril) 5 mg PO TID [facility] Last Admin: 05/05/18 10:55 Dose: 5 mg Darbepoetin Fletcher (Aranesp) 200 mcg IVP QWK [facility] Last Admin: 04/30/18 09:36 Dose: 200 mcg Ergocalciferol (Drisdol 50,000 Intl Units Cap) 1 cap PO Q7D [facility] Last Admin: 04/29/18 08:33 Dose: 1 cap Fluoxetine HCl (Prozac) 40 mg PO DAILY [facility] Last Admin: 05/05/18 10:56 Dose: 40 mg Heparin Sodium (Porcine) (Heparin) 5,000 units SC Q8 [facility]; Protocol Last Admin: 05/05/18 06:17 Dose: 5,000 units Heparin Sodium (Porcine) (Heparin) 2,000 units IVP F [facility]; Protocol Last Admin: 05/04/18 10:18 Dose: 2,000 units Iron Sucrose 100 mg/ Sodium (Chloride) 105 mls @ 210 mls/hr IVPB QWK [facility] Stop: 05/18/18 10:29 Last Admin: 05/04/18 12:59 Dose: 210 mls/hr Midodrine (Proamatine) 10 mg PO MWF [facility] Last Admin: 05/04/18 08:14 Dose: 10 mg Multi-Ingredient Ointment (Hydrophor Oint) 0 gm TOP Q12 [facility] Last Admin: 05/05/18 10:56 Dose: 1 appl Pantoprazole Sodium (Protonix Ec Tab) 40 mg PO 0600,1600 [facility] Last Admin: 05/05/18 06:17 Dose: 40 mg Spironolactone (Aldactone) 50 mg PO DAILY [facility] Stop: 05/25/18 10:01 Last Admin: 05/05/18 10:56 Dose: 50 mg Vancomycin HCl (Vancocin 25 Mg/Ml (Oral Use)) 250 mg PO QID [facility]; Protocol Last Admin: 05/05/18 10:57 Dose: 250 mg Vitamin B Complex/Vit C/Folic Acid (Nephro-Bhupinder) 1 tab PO 0800 [facility] Last Admin: 05/05/18 10:56 Dose: 1 tab Zolpidem Tartrate (Ambien) 10 mg PO HS [facility]; Protocol Last Admin: 05/04/18 21:20 Dose: 10 mg Results - Vital Signs Recent Vital Signs: Last Vital Signs Temp 98.9 F 05/05/18 06:00 Pulse 80 05/05/18 06:00 Resp 18 05/05/18 06:00 BP 98/52 L 05/05/18 06:00 Pulse Ox 95 05/05/18 06:00 - Labs Result Diagrams: 05/04/18 06:20 05/04/18 06:20 Labs: Laboratory Results - last 24 hr 05/04/18 05/04/18 09:30 09:30 Hep Bs Antigen Negative Hep Bs Antibody Negative Hep B Core IgM Ab Negative Attending/Attestation - Attestation I have personally seen and examined this patient.: Yes I have fully participated in the care of the patient.: Yes I have reviewed all pertinent clinical information: Yes
[2018-05-05] MEDS ORDERED: Mupirocin 2% Ointment 15 GM TUBE TOP SCH (10:00)
[2018-05-05] MEDS: Petrolatum-Mineral Oil Oint (100gm) TOP SCH ×2 (10:56→21:51)
[2018-05-05] MEDS: Multivitamin Vitamin B Complex (Nephro-Vite) Tab PO SCH (10:56)
[2018-05-05] MEDS: Vancomycin 25 MG/ML PO SCH ×4 (10:57→21:52)
--- NOTE | 2018-05-05 11:38 | CP.PCM.PN ---
Subjective - Date & Time of Evaluation Date of Evaluation: 05/05/18 Time of Evaluation: 08:30 - Subjective Subjective: Stool is not watery anymore, soft, no fevers, no abdominal pain. Objective - Vital Signs/Intake and Output Vital Signs (last 24 hours): Temp Pulse Resp BP Pulse Ox 98.6 F 81 20 98/51 L 98 05/04/18 14:00 05/04/18 14:00 05/04/18 14:00 05/04/18 14:00 05/04/18 14:00 - Medications Medications: Current Medications Acetaminophen (Tylenol 325mg Tab) 650 mg PO Q6 PRN PRN Reason: Fever >100.4 F Last Admin: 04/13/18 05:56 Dose: 650 mg Alprazolam (Xanax) 0.25 mg PO TID PRN; Protocol PRN Reason: Anxiety Last Admin: 04/30/18 15:05 Dose: 0.25 mg Benzonatate (Tessalon Perles) 100 mg PO TID PRN PRN Reason: Cough Last Admin: 04/25/18 15:43 Dose: 100 mg Cyclobenzaprine HCl (Flexeril) 5 mg PO TID [facility] Last Admin: 05/04/18 14:06 Dose: 5 mg Darbepoetin Fletcher (Aranesp) 200 mcg IVP QWK [facility] Last Admin: 04/30/18 09:36 Dose: 200 mcg Ergocalciferol (Drisdol 50,000 Intl Units Cap) 1 cap PO Q7D [facility] Last Admin: 04/29/18 08:33 Dose: 1 cap Fluoxetine HCl (Prozac) 40 mg PO DAILY [facility] Last Admin: 05/04/18 10:46 Dose: Not Given Heparin Sodium (Porcine) (Heparin) 5,000 units SC Q8 [facility]; Protocol Last Admin: 05/04/18 13:01 Dose: 5,000 units Heparin Sodium (Porcine) (Heparin) 2,000 units IVP F [facility]; Protocol Last Admin: 05/04/18 10:18 Dose: 2,000 units Iron Sucrose 100 mg/ Sodium (Chloride) 105 mls @ 210 mls/hr IVPB QWK [facility] Stop: 05/18/18 10:29 Last Admin: 05/04/18 12:59 Dose: 210 mls/hr Midodrine (Proamatine) 10 mg PO MWF [facility] Last Admin: 05/04/18 08:14 Dose: 10 mg Multi-Ingredient Ointment (Hydrophor Oint) 0 gm TOP Q12 [facility] Last Admin: 05/04/18 10:45 Dose: Not Given Pantoprazole Sodium (Protonix Ec Tab) 40 mg PO 0600,1600 [facility] Last Admin: 05/04/18 15:29 Dose: 40 mg Spironolactone (Aldactone) 50 mg PO DAILY [facility] Stop: 05/25/18 10:01 Last Admin: 05/04/18 10:45 Dose: Not Given Vancomycin HCl (Vancocin 25 Mg/Ml (Oral Use)) 250 mg PO QID [facility]; Protocol Last Admin: 05/04/18 13:34 Dose: 250 mg Vitamin B Complex/Vit C/Folic Acid (Nephro-Bhupinder) 1 tab PO 0800 [facility] Last Admin: 05/04/18 08:17 Dose: 1 tab Zolpidem Tartrate (Ambien) 10 mg PO HS [facility]; Protocol Last Admin: 05/03/18 22:32 Dose: 10 mg - Labs Labs: 05/04/18 06:20 05/04/18 06:20 PT 13.2 SECONDS (9.4-12.5) H 04/03/18 15:44 INR 1.15 04/03/18 15:44 APTT 30.7 Seconds (25.1-36.5) 04/03/18 15:44 - Constitutional Appears: Chronically Ill - Head Exam Head Exam: NORMAL INSPECTION - Respiratory Exam Respiratory Exam: Decreased Breath Sounds - Cardiovascular Exam Cardiovascular Exam: +S1, +S2 - GI/Abdominal Exam GI & Abdominal Exam: Soft. absent: Tenderness Assessment and Plan - Assessment and Plan (Free Text) Plan: Assessment C. diff. colitis S/P treatment of Influenza A infection S/P UTI with Klebsiella chronic lymphedema of lower extremities without evidence of cellulitis morbid obesity with BMI 52 chronic renal failure on dialysis R/O peripheral vascular disease Plan will continue PO Vancomycin day 12 for up to 14 days continue to monitor clinically
--- NOTE | 2018-05-05 12:10 | CP.PCM.PN ---
<Charbel Perdue - Last Filed: 05/05/18 12:06> Subjective - Date & Time of Evaluation Date of Evaluation: 05/05/18 Time of Evaluation: 09:20 - Subjective Subjective: Charbel Perdue, PGY-1 Progress Note for Hospitalist Service Patient seen and evaluated at bedside. No acute events reported overnight. Patient scheduled for next HD session on Monday. She does admit to residual R crampy leg pain which was likely related to activity performed during PT session. She also states that she is tolerating her diet without abdominal pain. She denies fevers, chills, chest pain, shortness of breath, cough, abd pain, nausea, vomiting, persistent diarrhea. One episode of soft brown stool overnight. Objective - Vital Signs/Intake and Output Vital Signs (last 24 hours): Temp Pulse Resp BP Pulse Ox 98.9 F 80 18 98/52 L 95 05/05/18 06:00 05/05/18 06:00 05/05/18 06:00 05/05/18 06:00 05/05/18 06:00 - Medications Medications: Current Medications Acetaminophen (Tylenol 325mg Tab) 650 mg PO Q6 PRN PRN Reason: Fever >100.4 F Last Admin: 04/13/18 05:56 Dose: 650 mg Alprazolam (Xanax) 0.25 mg PO TID PRN; Protocol PRN Reason: Anxiety Last Admin: 04/30/18 15:05 Dose: 0.25 mg Benzonatate (Tessalon Perles) 100 mg PO TID PRN PRN Reason: Cough Last Admin: 05/05/18 10:57 Dose: 100 mg Cyclobenzaprine HCl (Flexeril) 5 mg PO TID [facility] Last Admin: 05/05/18 10:55 Dose: 5 mg Darbepoetin Fletcher (Aranesp) 200 mcg IVP QWK [facility] Last Admin: 04/30/18 09:36 Dose: 200 mcg Ergocalciferol (Drisdol 50,000 Intl Units Cap) 1 cap PO Q7D [facility] Last Admin: 04/29/18 08:33 Dose: 1 cap Fluoxetine HCl (Prozac) 40 mg PO DAILY [facility] Last Admin: 05/05/18 10:56 Dose: 40 mg Heparin Sodium (Porcine) (Heparin) 5,000 units SC Q8 [facility]; Protocol Last Admin: 05/05/18 06:17 Dose: 5,000 units Heparin Sodium (Porcine) (Heparin) 2,000 units IVP [facility]; Protocol Last Admin: 05/04/18 10:18 Dose: 2,000 units Iron Sucrose 100 mg/ Sodium (Chloride) 105 mls @ 210 mls/hr IVPB QWK [facility] Stop: 05/18/18 10:29 Last Admin: 05/04/18 12:59 Dose: 210 mls/hr Midodrine (Proamatine) 10 mg PO [facility] Last Admin: 05/04/18 08:14 Dose: 10 mg Multi-Ingredient Ointment (Hydrophor Oint) 0 gm TOP Q12 [facility] Last Admin: 05/05/18 10:56 Dose: 1 appl Pantoprazole Sodium (Protonix Ec Tab) 40 mg PO 0600,1600 [facility] Last Admin: 05/05/18 06:17 Dose: 40 mg Spironolactone (Aldactone) 50 mg PO DAILY [facility] Stop: 05/25/18 10:01 Last Admin: 05/05/18 10:56 Dose: 50 mg Vancomycin HCl (Vancocin 25 Mg/Ml (Oral Use)) 250 mg PO QID [facility]; Protocol Last Admin: 05/05/18 10:57 Dose: 250 mg Vitamin B Complex/Vit C/Folic Acid (Nephro-Bhupinder) 1 tab PO 0800 [facility] Last Admin: 05/05/18 10:56 Dose: 1 tab Zolpidem Tartrate (Ambien) 10 mg PO HS [facility]; Protocol Last Admin: 05/04/18 21:20 Dose: 10 mg - Labs Labs: 05/04/18 06:20 05/04/18 06:20 PT 13.2 SECONDS (9.4-12.5) H 04/03/18 15:44 INR 1.15 04/03/18 15:44 APTT 30.7 Seconds (25.1-36.5) 04/03/18 15:44 - Additional Findings Additional findings: - Constitutional Appears: Non-toxic, No Acute Distress - Head Exam Head Exam: ATRAUMATIC, NORMAL INSPECTION, NORMOCEPHALIC - Eye Exam Eye Exam: EOMI, Normal appearance, PERRL - Respiratory Exam Respiratory Exam: Clear to Ausculation Bilateral, NORMAL BREATHING PATTERN. absent: Accessory Muscle Use, Rales, Rhonchi, Wheezes - Cardiovascular Exam Cardiovascular Exam: RRR, +S1, +S2. absent: Gallop, Rubs - GI/Abdominal Exam GI & Abdominal Exam: Soft, Normal Bowel Sounds. absent: Firm, Guarding, Rigid, Tenderness - Extremities Exam Extremities Exam: Pedal Edema (3+) with chronic dermatologic changes, Tenderness. absent: Calf Tenderness - Back Exam Back Exam: NORMAL INSPECTION. absent: CVA tenderness (L), CVA tenderness (R) - Neurological Exam Neurological Exam: Alert, Awake, Oriented x3 - Psychiatric Exam Psychiatric exam: Normal Affect, Normal Mood - Skin Skin Exam: Dry, Normal Color, Warm Assessment and Plan - Assessment and Plan (Free Text) Assessment: 52 year old F with past medical history of liver failure, morbid obesity, and EtOH abuse presents to [facility] [place] for worsening weakness and admitted for management of anemia and FELIPE with metabolic acidosis. Currently being treated with HD MWF. Pt is awaiting placement for [facility]. Plan: C. Diff - C. diff antigen and toxin positive - Continue PO vancomycin day 12 out of 14 per ID recs - had 1 bout of diarrhea last night - Leukocytosis - resolved, WBC now wnl - contact precautions Depression -Psych on consult, Dr. Ramos -continue xanax prn, prozac and ambien Acute renal failure - improved - on HD MWF - Had HD yesterday - Working with social work case manager for outpatient HD setup - Found HD placement, awaiting [facility] placement - will get blood work every other day - Renal US is unremarkable - Strict I's and O's - Nephrology on consult, Dr. Salmeron, recs appreciated - Continue with Aldactone, Midodrine Chronic lymphedema of B/L legs - Improving - Pt states improvement after multiple HD sessions - podiatry on consult, no further recommendations, local wound care for now - not currently draining/weeping - repeat ext US shows possible right SFA occlusive disease, limited study due to artifact - wound culture grew Enterobacter Cloacae, E. faecalis - superficial bacteria colonizers - f/u LE venous duplex study per podiatry - PT recommends [facility], awaiting placement Microcytic anemia - s/p total 11 units pRBCs, 2 FFPs - Continue IV iron per Nephro - endoscopy showed 3 non bleeding gastric ulcers, largest one 8mm - Iron studies shows likely iron deficiency - Head CT unremarkable - CTAP shows adenopathy of the hepatic gastric ligament - GI on consult, Dr. Melo - ginger appreciated Fever - resolved -afebrile, no WBC -positive flu type A, completed course of tamiflu -completed course of merrem for UTI with klebsiella, continue with Vanc -CXR showed moderate cardiomegaly, vascular congestion -blood culture shows no growth after 5 days Elevated BNP -BNP 16657 on admission -Echo showed EF of 68%, mild TR/MR, mild pulm HTN, borderline LVH PPX/Diet -protonix, heparin -renal, fiber diet Patient seen, case reviewed and plan approved by Dr. Ross. Charbel Perdue, PGY-1 <Miko Ross - Last Filed: 05/05/18 13:32> Objective - Vital Signs/Intake and Output Vital Signs (last 24 hours): Temp Pulse Resp BP Pulse Ox 98.9 F 80 18 98/52 L 95 05/05/18 06:00 05/05/18 06:00 05/05/18 06:00 05/05/18 06:00 05/05/18 06:00 - Medications Medications: Current Medications Acetaminophen (Tylenol 325mg Tab) 650 mg PO Q6 PRN PRN Reason: Fever >100.4 F Last Admin: 04/13/18 05:56 Dose: 650 mg Alprazolam (Xanax) 0.25 mg PO TID PRN; Protocol PRN Reason: Anxiety Last Admin: 04/30/18 15:05 Dose: 0.25 mg Benzonatate (Tessalon Perles) 100 mg PO TID PRN PRN Reason: Cough Last Admin: 05/05/18 10:57 Dose: 100 mg Cyclobenzaprine HCl (Flexeril) 5 mg PO TID [facility] Last Admin: 05/05/18 10:55 Dose: 5 mg Darbepoetin Fletcher (Aranesp) 200 mcg IVP QWK [facility] Last Admin: 04/30/18 09:36 Dose: 200 mcg Ergocalciferol (Drisdol 50,000 Intl Units Cap) 1 cap PO Q7D [facility] Last Admin: 04/29/18 08:33 Dose: 1 cap Fluoxetine HCl (Prozac) 40 mg PO DAILY [facility] Last Admin: 05/05/18 10:56 Dose: 40 mg Heparin Sodium (Porcine) (Heparin) 5,000 units SC Q8 [facility]; Protocol Last Admin: 05/05/18 06:17 Dose: 5,000 units Heparin Sodium (Porcine) (Heparin) 2,000 units IVP [facility]; Protocol Last Admin: 05/04/18 10:18 Dose: 2,000 units Iron Sucrose 100 mg/ Sodium (Chloride) 105 mls @ 210 mls/hr IVPB QWK [facility] Stop: 05/18/18 10:29 Last Admin: 05/04/18 12:59 Dose: 210 mls/hr Midodrine (Proamatine) 10 mg PO MWF [facility] Last Admin: 05/04/18 08:14 Dose: 10 mg Multi-Ingredient Ointment (Hydrophor Oint) 0 gm TOP Q12 [facility] Last Admin: 05/05/18 10:56 Dose: 1 appl Pantoprazole Sodium (Protonix Ec Tab) 40 mg PO 0600,1600 [facility] Last Admin: 05/05/18 06:17 Dose: 40 mg Spironolactone (Aldactone) 50 mg PO DAILY [facility] Stop: 05/25/18 10:01 Last Admin: 05/05/18 10:56 Dose: 50 mg Vancomycin HCl (Vancocin 25 Mg/Ml (Oral Use)) 250 mg PO QID [facility]; Protocol Last Admin: 05/05/18 10:57 Dose: 250 mg Vitamin B Complex/Vit C/Folic Acid (Nephro-Bhupinder) 1 tab PO 0800 [facility] Last Admin: 05/05/18 10:56 Dose: 1 tab Zolpidem Tartrate (Ambien) 10 mg PO HS [facility]; Protocol Last Admin: 05/04/18 21:20 Dose: 10 mg - Labs Labs: 05/04/18 06:20 05/04/18 06:20 PT 13.2 SECONDS (9.4-12.5) H 04/03/18 15:44 INR 1.15 04/03/18 15:44 APTT 30.7 Seconds (25.1-36.5) 04/03/18 15:44 Attending/Attestation - Attestation I have personally seen and examined this patient.: Yes I have fully participated in the care of the patient.: Yes I have reviewed all pertinent clinical information, including history, physical exam and plan: Yes Notes (Text): 05/05/18 13:31 52 year old female with past medical history of liver failures and alcohol abuse who initially presented with weakness found to have anemia and FELIPE. GI workup included EGD which showed 3 non bleeding gastric ulcers. Patient is currently on iron and protonix. H/H has been stable. Continue with hemodialysis. Nephrology is following. Outpatient dialysis has been arranged. She is on po vanco for CDIF. Diarrhea has improved. She is s/p treatment for flu and UTI. She is currently pending [facility] placement for d/c planning. Miko Ross MD Hospitalist.
--- NOTE | 2018-05-05 12:52 | CP.PCM.PN ---
Subjective - Date & Time of Evaluation Date of Evaluation: 05/05/18 Time of Evaluation: 12:51 - Subjective Subjective: Nephrology Consultation Note: Assessment: stable oligoanuric Acute Kidney Injury (N17.9) likely due to ATN, pre-renal state, intrasvasc hypovolemia, impaired renal perfusion, HD 04/05/18: first session. probably ESRD anasarca severe symptomatic anemia due to GI bleed with gastric ulcers mild hyperkalemia and HAGMA, hyperphos hx of cirrhosis and etoh intra-ab lymphadenopathy morbid obesity acute influenza C diff colitis Plan Continue HD on MWF schedule. 24 hr crcl: 6 and volume 200 mL. no evidence of renal recovery yet. probably ESRD Maintain hemodynamics stable. Avoid hypotension. Patient not on ACEI/ARB due to recent FELIPE. Monitor Input/Output, daily weights and renal function with basic metabolic panel PRBC as needed. s/p 1 gram IV iron, now on weekly aranesp/IV iron work up for FELIPE and anemia as ordered. GN work up neg hence will defer kidney biopsy. also pt with liver disease and morbidly obese. on oral vit d abx per primary team dose for ESRD S: complains of diarrhea Physical Examination: General Appearance: Comfortable, in no acute respiratory distress, co-operative . morbid obese Vitals reviewed and noted as below Head; Atraumatic, normocephalic ENT: no ulcers no thrush. Tongue is midline. Oropharynx: no rash or ulcers. EYES: Pupils are equal, round and reactive to light accommodation. Eye muscles and extraocular movement intact. Sclera is anicteric. Neck; supple no lymphadenopathy, no thyromegaly or bruit Lungs: Normal respiratory rate/effort. Breath sounds bilateral clear Heart: Normal rate. s1s2 normal. No rub or gallop. Extremities: 2+ edema. Neurological: Patient is alert, awake and oriented to person, place and time. No focal deficit. Strength bilateral appropriate and equal Skin: Warm and dry. Normal turgor. Palpitation: Normal elasticity for age Abdomen: Abdomen is soft. Bowel sounds +. There is no abdominal tenderness, no guarding/rigidity no organomegaly. limited due to obesity and abd wall edema Psych: normal insight and flat affect/mood MSK: no joint tenderness or swelling. Digits and nails normal, no deformity : kidney or bladder not palpable. has access as permacath Labs/imaging reviewed. Past medical history, past surgical history, family history, social history, allergy reviewed and noted as below Family hx: no hx of CKD. Rest non-contributory fena 0.3% intra-ab lymphadenopathy Objective - Vital Signs/Intake and Output Vital Signs (last 24 hours): Temp Pulse Resp BP Pulse Ox 98.9 F 80 18 98/52 L 95 05/05/18 06:00 05/05/18 06:00 05/05/18 06:00 05/05/18 06:00 05/05/18 06:00 - Medications Medications: Current Medications Acetaminophen (Tylenol 325mg Tab) 650 mg PO Q6 PRN PRN Reason: Fever >100.4 F Last Admin: 04/13/18 05:56 Dose: 650 mg Alprazolam (Xanax) 0.25 mg PO TID PRN; Protocol PRN Reason: Anxiety Last Admin: 04/30/18 15:05 Dose: 0.25 mg Benzonatate (Tessalon Perles) 100 mg PO TID PRN PRN Reason: Cough Last Admin: 05/05/18 10:57 Dose: 100 mg Cyclobenzaprine HCl (Flexeril) 5 mg PO TID [facility] Last Admin: 05/05/18 10:55 Dose: 5 mg Darbepoetin Fletcher (Aranesp) 200 mcg IVP QWK [facility] Last Admin: 04/30/18 09:36 Dose: 200 mcg Ergocalciferol (Drisdol 50,000 Intl Units Cap) 1 cap PO Q7D [facility] Last Admin: 04/29/18 08:33 Dose: 1 cap Fluoxetine HCl (Prozac) 40 mg PO DAILY [facility] Last Admin: 05/05/18 10:56 Dose: 40 mg Heparin Sodium (Porcine) (Heparin) 5,000 units SC Q8 [facility]; Protocol Last Admin: 05/05/18 06:17 Dose: 5,000 units Heparin Sodium (Porcine) (Heparin) 2,000 units IVP MWF [facility]; Protocol Last Admin: 05/04/18 10:18 Dose: 2,000 units Iron Sucrose 100 mg/ Sodium (Chloride) 105 mls @ 210 mls/hr IVPB QWK [facility] Stop: 05/18/18 10:29 Last Admin: 05/04/18 12:59 Dose: 210 mls/hr Midodrine (Proamatine) 10 mg PO MWF [facility] Last Admin: 05/04/18 08:14 Dose: 10 mg Multi-Ingredient Ointment (Hydrophor Oint) 0 gm TOP Q12 [facility] Last Admin: 05/05/18 10:56 Dose: 1 appl Pantoprazole Sodium (Protonix Ec Tab) 40 mg PO 0600,1600 [facility] Last Admin: 05/05/18 06:17 Dose: 40 mg Spironolactone (Aldactone) 50 mg PO DAILY [facility] Stop: 05/25/18 10:01 Last Admin: 05/05/18 10:56 Dose: 50 mg Vancomycin HCl (Vancocin 25 Mg/Ml (Oral Use)) 250 mg PO QID [facility]; Protocol Last Admin: 05/05/18 10:57 Dose: 250 mg Vitamin B Complex/Vit C/Folic Acid (Nephro-Bhupinder) 1 tab PO 0800 [facility] Last Admin: 05/05/18 10:56 Dose: 1 tab Zolpidem Tartrate (Ambien) 10 mg PO HS [facility]; Protocol Last Admin: 05/04/18 21:20 Dose: 10 mg - Labs Labs: 05/04/18 06:20 05/04/18 06:20 PT 13.2 SECONDS (9.4-12.5) H 04/03/18 15:44 INR 1.15 04/03/18 15:44 APTT 30.7 Seconds (25.1-36.5) 04/03/18 15:44
[2018-05-06] MEDS: Pantoprazole 40 mg EC Tab PO SCH ×2 (05:50→16:22)
[2018-05-06] MEDS: Multivitamin Vitamin B Complex (Nephro-Vite) Tab PO SCH (08:28)
[2018-05-06] MEDS: Petrolatum-Mineral Oil Oint (100gm) TOP SCH ×2 (10:16→22:09)
[2018-05-06] MEDS: Ergocalciferol 50,000 Intl Units Cap PO SCH (10:16)
[2018-05-06] MEDS: Vancomycin 25 MG/ML PO SCH ×4 (10:16→22:11)
--- NOTE | 2018-05-06 12:49 | CP.PCM.PN ---
<Fab Kilgore - Last Filed: 05/06/18 13:35> Subjective - Date & Time of Evaluation Date of Evaluation: 05/06/18 Time of Evaluation: 08:00 - Subjective Subjective: Fab Kilgore PGY1 Medicine Progress Note for Dr. Ross Patient was seen and examined at bedside this morning. No adverse overnight events. Patient planned for HD session on Monday. She still endorses some cramping in her legs. Tolerating diet. Denies cp, sob, abdominal pain, fevers, chills, diarrhea. A full 12 point ROS was conducted and unremarkable except as stated above. Objective - Vital Signs/Intake and Output Vital Signs (last 24 hours): Temp Pulse Resp BP Pulse Ox 98.4 F 84 20 110/55 L 98 05/06/18 06:00 05/06/18 06:00 05/06/18 06:00 05/06/18 06:00 05/06/18 06:00 Intake and Output: 05/06/18 05/06/18 06:59 18:59 Intake Total 400 Balance 400 - Medications Medications: Current Medications Acetaminophen (Tylenol 325mg Tab) 650 mg PO Q6 PRN PRN Reason: Fever >100.4 F Last Admin: 04/13/18 05:56 Dose: 650 mg Alprazolam (Xanax) 0.25 mg PO TID PRN; Protocol PRN Reason: Anxiety Last Admin: 04/30/18 15:05 Dose: 0.25 mg Benzonatate (Tessalon Perles) 100 mg PO TID PRN PRN Reason: Cough Last Admin: 05/05/18 10:57 Dose: 100 mg Cyclobenzaprine HCl (Flexeril) 5 mg PO TID [facility] Last Admin: 05/06/18 10:13 Dose: 5 mg Darbepoetin Fletcher (Aranesp) 200 mcg IVP QWK [facility] Last Admin: 04/30/18 09:36 Dose: 200 mcg Ergocalciferol (Drisdol 50,000 Intl Units Cap) 1 cap PO Q7D [facility] Last Admin: 05/06/18 10:16 Dose: 1 cap Fluoxetine HCl (Prozac) 40 mg PO DAILY [facility] Last Admin: 05/06/18 10:12 Dose: 40 mg Heparin Sodium (Porcine) (Heparin) 5,000 units SC Q8 [facility]; Protocol Last Admin: 05/06/18 05:50 Dose: 5,000 units Heparin Sodium (Porcine) (Heparin) 2,000 units IVP [facility] [place]; Protocol Last Admin: 05/04/18 10:18 Dose: 2,000 units Iron Sucrose 100 mg/ Sodium (Chloride) 105 mls @ 210 mls/hr IVPB QWK [facility] Stop: 05/18/18 10:29 Last Admin: 05/04/18 12:59 Dose: 210 mls/hr Midodrine (Proamatine) 10 mg PO F [facility] Last Admin: 05/04/18 08:14 Dose: 10 mg Multi-Ingredient Ointment (Hydrophor Oint) 0 gm TOP Q12 [facility] Last Admin: 05/06/18 10:16 Dose: 1 appl Pantoprazole Sodium (Protonix Ec Tab) 40 mg PO 0600,1600 [facility] Last Admin: 05/06/18 05:50 Dose: 40 mg Spironolactone (Aldactone) 50 mg PO DAILY [facility] Stop: 05/25/18 10:01 Last Admin: 05/06/18 10:13 Dose: 50 mg Vancomycin HCl (Vancocin 25 Mg/Ml (Oral Use)) 250 mg PO QID [facility]; Protocol Last Admin: 05/06/18 10:16 Dose: 250 mg Vitamin B Complex/Vit C/Folic Acid (Nephro-Bhupinder) 1 tab PO 0800 [facility] Last Admin: 05/06/18 08:28 Dose: 1 tab Zolpidem Tartrate (Ambien) 10 mg PO HS [facility]; Protocol Last Admin: 05/05/18 21:52 Dose: 10 mg - Labs Labs: 05/04/18 06:20 05/04/18 06:20 PT 13.2 SECONDS (9.4-12.5) H 04/03/18 15:44 INR 1.15 04/03/18 15:44 APTT 30.7 Seconds (25.1-36.5) 04/03/18 15:44 - Constitutional Appears: No Acute Distress - Head Exam Head Exam: ATRAUMATIC, NORMAL INSPECTION, NORMOCEPHALIC - Eye Exam Eye Exam: EOMI - ENT Exam ENT Exam: Mucous Membranes Moist - Respiratory Exam Respiratory Exam: Clear to Ausculation Bilateral. absent: Rales, Rhonchi, Wheezes - Cardiovascular Exam Cardiovascular Exam: RRR, +S1, +S2 - GI/Abdominal Exam GI & Abdominal Exam: Soft, Normal Bowel Sounds. absent: Tenderness - Extremities Exam Extremities Exam: absent: Calf Tenderness, Full ROM, Tenderness Additional comments: +3 pitting edema with chronic skin changes and venous stasis. Mild tenderness to palpation. - Back Exam Back Exam: NORMAL INSPECTION - Neurological Exam Neurological Exam: Alert, Awake, Oriented x3 - Psychiatric Exam Psychiatric exam: Normal Affect, Normal Mood Assessment and Plan - Assessment and Plan (Free Text) Assessment: Patient is a 52 year old F with PMHx Liver failure, morbid obesity, and EtOH abuse who [place] [facility] [place] and admitted for management of anemia and FELIPE. Patient had EGD that showed 3 non-bleeding gastric ulcers. She is on HD with outpatient dialysis arranged. Patient was also febrile due to UTI and flu positive during hospital course. She is also being managed for C. diff. Patient is awaiting placement for [facility]. Plan: C. Diff - C. diff antigen and toxin positive - c/w PO vancomycin as per ID recs - diarrhea improved - Leukocytosis improved; afebrile - c/w contact precautions Depression -Psych on consult. Recs appreciated. -c/w xanax prn, prozac and ambien Acute renal failure - improved - on HD MWF; plan for next HD session on Monday - Working with insurance case manager for outpatient HD setup - Found HD placement, awaiting [facility] placement - will get blood work every other day - Renal US is unremarkable - Strict I's and O's - Nephrology on consult, Dr. Salmeron, recs appreciated - c/w Aldactone, Midodrine Chronic lymphedema of B/L legs - Improving - LE venous duplex study is negative for DVT - Pt states improvement after multiple HD sessions - podiatry on consult, no further recommendations, local wound care for now - not currently draining/weeping - repeat ext US shows possible right SFA occlusive disease, limited study due to artifact - wound culture grew Enterobacter Cloacae, E. faecalis - superficial bacteria colonizers - PT recommends [facility], awaiting placement Microcytic anemia - s/p EGD showing x3 non-bleeding gastric ulcers - s/p total x11 units pRBCs, x2 FFPs - Continue IV iron per Nephro - endoscopy showed 3 non bleeding gastric ulcers, largest one 8mm - Iron studies shows likely iron deficiency - Head CT unremarkable - CTAP shows adenopathy of the hepatic gastric ligament - GI on consult, Dr. Melo - ginger appreciated Fever 2/2 Flu vs UTI - resolved - currently afebrile, no WBC - positive flu type A, completed course of tamiflu - completed course of merrem for UTI with klebsiella, continue with Vanc - CXR showed moderate cardiomegaly, vascular congestion - blood culture shows no growth after 5 days PPX/Diet -protonix, heparin -renal, fiber diet Dispo: Will continue to monitor the patient on the floor. Pending [facility] placement. Case was reviewed and discussed with Attending Physician, Dr. Ross <Miko Ross - Last Filed: 05/06/18 14:01> Objective - Vital Signs/Intake and Output Vital Signs (last 24 hours): Temp Pulse Resp BP Pulse Ox 98.4 F 84 20 110/55 L 98 05/06/18 06:00 05/06/18 06:00 05/06/18 06:00 05/06/18 06:00 05/06/18 06:00 Intake and Output: 05/06/18 05/06/18 06:59 18:59 Intake Total 400 Balance 400 - Medications Medications: Current Medications Acetaminophen (Tylenol 325mg Tab) 650 mg PO Q6 PRN PRN Reason: Fever >100.4 F Last Admin: 04/13/18 05:56 Dose: 650 mg Alprazolam (Xanax) 0.25 mg PO TID PRN; Protocol PRN Reason: Anxiety Last Admin: 04/30/18 15:05 Dose: 0.25 mg Benzonatate (Tessalon Perles) 100 mg PO TID PRN PRN Reason: Cough Last Admin: 05/05/18 10:57 Dose: 100 mg Cyclobenzaprine HCl (Flexeril) 5 mg PO TID [facility] Last Admin: 05/06/18 10:13 Dose: 5 mg Darbepoetin Fletcher (Aranesp) 200 mcg IVP QWK [facility] Last Admin: 04/30/18 09:36 Dose: 200 mcg Ergocalciferol (Drisdol 50,000 Intl Units Cap) 1 cap PO Q7D [facility] Last Admin: 05/06/18 10:16 Dose: 1 cap Fluoxetine HCl (Prozac) 40 mg PO DAILY [facility] Last Admin: 05/06/18 10:12 Dose: 40 mg Heparin Sodium (Porcine) (Heparin) 5,000 units SC Q8 [facility]; Protocol Last Admin: 05/06/18 05:50 Dose: 5,000 units Heparin Sodium (Porcine) (Heparin) 2,000 units IVP MWF [facility]; Protocol Last Admin: 05/04/18 10:18 Dose: 2,000 units Iron Sucrose 100 mg/ Sodium (Chloride) 105 mls @ 210 mls/hr IVPB QWK [facility] Stop: 05/18/18 10:29 Last Admin: 05/04/18 12:59 Dose: 210 mls/hr Midodrine (Proamatine) 10 mg PO MWF [facility] Last Admin: 05/04/18 08:14 Dose: 10 mg Multi-Ingredient Ointment (Hydrophor Oint) 0 gm TOP Q12 [facility] Last Admin: 05/06/18 10:16 Dose: 1 appl Pantoprazole Sodium (Protonix Ec Tab) 40 mg PO 0600,1600 [facility] Last Admin: 05/06/18 05:50 Dose: 40 mg Spironolactone (Aldactone) 50 mg PO DAILY [facility] Stop: 05/25/18 10:01 Last Admin: 05/06/18 10:13 Dose: 50 mg Vancomycin HCl (Vancocin 25 Mg/Ml (Oral Use)) 250 mg PO QID [facility]; Protocol Last Admin: 05/06/18 10:16 Dose: 250 mg Vitamin B Complex/Vit C/Folic Acid (Nephro-Bhupinder) 1 tab PO 0800 [facility] Last Admin: 05/06/18 08:28 Dose: 1 tab Zolpidem Tartrate (Ambien) 10 mg PO HS [facility]; Protocol Last Admin: 05/05/18 21:52 Dose: 10 mg - Labs Labs: 05/04/18 06:20 05/04/18 06:20 PT 13.2 SECONDS (9.4-12.5) H 04/03/18 15:44 INR 1.15 04/03/18 15:44 APTT 30.7 Seconds (25.1-36.5) 04/03/18 15:44 Attending/Attestation - Attestation I have personally seen and examined this patient.: Yes I have fully participated in the care of the patient.: Yes I have reviewed all pertinent clinical information, including history, physical exam and plan: Yes Notes (Text): 05/06/18 14:01 52 year old female with past medical history of liver failures and alcohol abuse who initially presented with weakness found to have anemia and FELIPE. GI workup included EGD which showed 3 non bleeding gastric ulcers. Patient is currently on iron and protonix. H/H has been stable. Continue with hemodialysis. Nephrology is following. Outpatient dialysis has been arranged. She is on po vanco for CDIF. She is s/p treatment for flu and UTI. She is currently pending [facility] placement for d/c planning. Miko Ross MD Hospitalist.
--- NOTE | 2018-05-06 12:56 | US ---
HISTORY: Leg pain and swelling. Evaluate for DVT PHYSICIAN(S): Ramsey Ny MD. TECHNIQUE: Duplex sonography and color-flow Doppler with graded compression were used to evaluate the deep venous systems of both lower extremities. The exam is limited by body habitus and edema. The tibial veins are not well seen FINDINGS: The visualized deep venous systems of both lower extremities are sonographically normal and compressible. Normal wave forms and augmentation are seen. There is no sonographic evidence for deep venous thrombosis in the visualized segments of both lower extremities. IMPRESSION: No sonographic evidence for deep venous thrombosis in the visualized segments of both lower extremities. Limited study.
--- NOTE | 2018-05-06 14:31 | CP.PCM.PN ---
Subjective - Date & Time of Evaluation Date of Evaluation: 05/06/18 Time of Evaluation: 09:15 - Subjective Subjective: Comfortable in bed, no fevers, diarrhea continues to improve. Objective - Vital Signs/Intake and Output Vital Signs (last 24 hours): Temp Pulse Resp BP Pulse Ox 98.9 F 80 18 98/52 L 95 05/05/18 06:00 05/05/18 06:00 05/05/18 06:00 05/05/18 06:00 05/05/18 06:00 - Medications Medications: Current Medications Acetaminophen (Tylenol 325mg Tab) 650 mg PO Q6 PRN PRN Reason: Fever >100.4 F Last Admin: 04/13/18 05:56 Dose: 650 mg Alprazolam (Xanax) 0.25 mg PO TID PRN; Protocol PRN Reason: Anxiety Last Admin: 04/30/18 15:05 Dose: 0.25 mg Benzonatate (Tessalon Perles) 100 mg PO TID PRN PRN Reason: Cough Last Admin: 05/05/18 10:57 Dose: 100 mg Cyclobenzaprine HCl (Flexeril) 5 mg PO TID [facility] Last Admin: 05/05/18 10:55 Dose: 5 mg Darbepoetin Fletcher (Aranesp) 200 mcg IVP QWK [facility] Last Admin: 04/30/18 09:36 Dose: 200 mcg Ergocalciferol (Drisdol 50,000 Intl Units Cap) 1 cap PO Q7D [facility] Last Admin: 04/29/18 08:33 Dose: 1 cap Fluoxetine HCl (Prozac) 40 mg PO DAILY [facility] Last Admin: 05/05/18 10:56 Dose: 40 mg Heparin Sodium (Porcine) (Heparin) 5,000 units SC Q8 [facility]; Protocol Last Admin: 05/05/18 06:17 Dose: 5,000 units Heparin Sodium (Porcine) (Heparin) 2,000 units IVP F [facility]; Protocol Last Admin: 05/04/18 10:18 Dose: 2,000 units Iron Sucrose 100 mg/ Sodium (Chloride) 105 mls @ 210 mls/hr IVPB QWK [facility] Stop: 05/18/18 10:29 Last Admin: 05/04/18 12:59 Dose: 210 mls/hr Midodrine (Proamatine) 10 mg PO F [facility] Last Admin: 05/04/18 08:14 Dose: 10 mg Multi-Ingredient Ointment (Hydrophor Oint) 0 gm TOP Q12 [facility] Last Admin: 05/05/18 10:56 Dose: 1 appl Pantoprazole Sodium (Protonix Ec Tab) 40 mg PO 0600,1600 [facility] Last Admin: 05/05/18 06:17 Dose: 40 mg Spironolactone (Aldactone) 50 mg PO DAILY [facility] Stop: 05/25/18 10:01 Last Admin: 05/05/18 10:56 Dose: 50 mg Vancomycin HCl (Vancocin 25 Mg/Ml (Oral Use)) 250 mg PO QID [facility]; Protocol Last Admin: 05/05/18 10:57 Dose: 250 mg Vitamin B Complex/Vit C/Folic Acid (Nephro-Bhupinder) 1 tab PO 0800 [facility] Last Admin: 05/05/18 10:56 Dose: 1 tab Zolpidem Tartrate (Ambien) 10 mg PO HS [facility]; Protocol Last Admin: 05/04/18 21:20 Dose: 10 mg - Labs Labs: 05/04/18 06:20 05/04/18 06:20 PT 13.2 SECONDS (9.4-12.5) H 04/03/18 15:44 INR 1.15 04/03/18 15:44 APTT 30.7 Seconds (25.1-36.5) 04/03/18 15:44 - Constitutional Appears: Chronically Ill - Head Exam Head Exam: NORMAL INSPECTION - Respiratory Exam Respiratory Exam: Decreased Breath Sounds - Cardiovascular Exam Cardiovascular Exam: +S1, +S2 - GI/Abdominal Exam GI & Abdominal Exam: Soft. absent: Tenderness Assessment and Plan - Assessment and Plan (Free Text) Plan: Assessment C. diff. colitis S/P treatment of Influenza A infection S/P UTI with Klebsiella chronic lymphedema of lower extremities without evidence of cellulitis morbid obesity with BMI 52 chronic renal failure on dialysis R/O peripheral vascular disease Plan will continue PO Vancomycin day 13 for up to 14 days continue to monitor clinically
--- NOTE | 2018-05-06 20:33 | CON ---
DATE: 05/06/2018 HISTORY OF PRESENT ILLNESS: The patient is a 52-year-old female, followed by psychiatry for depression while she is being treated on medical floor. Please see medical team notes for more detailed information regarding medical comorbidity. I reviewed Dr. Maradiaga's notes. I have met with the patient at the bedside during prior consultation. The patient presents as alert and oriented and brighter today. Reports that she is sleeping better. Denies having any concerns, reveals that her mood is improving a little bit and her affect is congruent with this. She denies any acute concerns or side effects from medications at this time. Thought process is coherent. Her insight and judgement are improving. The patient indicates that she is hopeful. LABORATORY DATA: Labs and vitals were reviewed. MEDICATIONS: Relevant psychiatric medications include Xanax 0.25 mg p.o. t.i.d. p.r.n., Prozac 40 mg daily, and Ambien 10 mg at bedtime. IMPRESSION: Likely adjustment disorder with mood and anxiety, generalized anxiety disorder, rule out major depressive disorder and as well as mood disorder due to general medical condition. PLAN: We will continue current management, current medications. Psychiatric will sign off at this time. Please re-consult p.r.n., if there are any changes to the patient's presentation. Kaya Saxena MD
[2018-05-07] MEDS: Pantoprazole 40 mg EC Tab PO SCH ×2 (06:39→17:07)
[2018-05-07] MEDS: Multivitamin Vitamin B Complex (Nephro-Vite) Tab PO SCH (08:13)
--- NOTE | 2018-05-07 08:13 | CP.PCM.PN ---
<Robina Garrett - Last Filed: 05/07/18 16:05> Subjective - Date & Time of Evaluation Date of Evaluation: 05/07/18 Time of Evaluation: 08:13 - Subjective Subjective: Robina Garrett, PGY-1 Medicine Progress Note for Dr. Ojeda: Pt was seen and examined this AM at bedside. Pt is scheduled for dialysis tomorrow, she had 4 bouts of diarrhea since last night, but they are more formed. She states that she was able to sleep through the night and had no acute events. She also states that she is tolerating her diet and is not having any abdominal pain. She denies fevers, chills, cp, sob, cough, abd pain, n/v, c/d, or dysuria. She states that her R leg pain which is related to pulling her muscle with PT yesterday is improving and that she is working with PT again. Objective - Vital Signs/Intake and Output Vital Signs (last 24 hours): Temp Pulse Resp BP Pulse Ox 98.6 F 84 18 114/59 L 96 05/06/18 22:00 05/06/18 22:00 05/06/18 22:00 05/06/18 22:00 05/06/18 22:00 - Medications Medications: Current Medications Acetaminophen (Tylenol 325mg Tab) 650 mg PO Q6 PRN PRN Reason: Fever >100.4 F Last Admin: 04/13/18 05:56 Dose: 650 mg Alprazolam (Xanax) 0.25 mg PO TID PRN; Protocol PRN Reason: Anxiety Last Admin: 04/30/18 15:05 Dose: 0.25 mg Benzonatate (Tessalon Perles) 100 mg PO TID PRN PRN Reason: Cough Last Admin: 05/05/18 10:57 Dose: 100 mg Cyclobenzaprine HCl (Flexeril) 5 mg PO TID [facility] Last Admin: 05/06/18 18:45 Dose: 5 mg Darbepoetin Fletcher (Aranesp) 200 mcg IVP QWK [facility] [place] Last Admin: 04/30/18 09:36 Dose: 200 mcg Ergocalciferol (Drisdol 50,000 Intl Units Cap) 1 cap PO Q7D [facility] [place] Last Admin: 05/06/18 10:16 Dose: 1 cap Fluoxetine HCl (Prozac) 40 mg PO DAILY [facility] [place] Last Admin: 05/06/18 10:12 Dose: 40 mg Heparin Sodium (Porcine) (Heparin) 5,000 units SC Q8 [facility] [place]; Protocol Last Admin: 05/07/18 06:39 Dose: 5,000 units Heparin Sodium (Porcine) (Heparin) 2,000 units IVP MWF [facility] [place]; Protocol Last Admin: 05/04/18 10:18 Dose: 2,000 units Iron Sucrose 100 mg/ Sodium (Chloride) 105 mls @ 210 mls/hr IVPB QWK [facility] [place] Stop: 05/18/18 10:29 Last Admin: 05/04/18 12:59 Dose: 210 mls/hr Midodrine (Proamatine) 10 mg PO MWF [facility] [place] Last Admin: 05/04/18 08:14 Dose: 10 mg Multi-Ingredient Ointment (Hydrophor Oint) 0 gm TOP Q12 [facility] [place] Last Admin: 05/06/18 22:09 Dose: 1 appl Pantoprazole Sodium (Protonix Ec Tab) 40 mg PO 0600,1600 [facility] [place] Last Admin: 05/07/18 06:39 Dose: 40 mg Spironolactone (Aldactone) 50 mg PO DAILY [facility] [place] Stop: 05/25/18 10:01 Last Admin: 05/06/18 10:13 Dose: 50 mg Vancomycin HCl (Vancocin 25 Mg/Ml (Oral Use)) 250 mg PO QID [facility] [place]; Protocol Last Admin: 05/06/18 22:11 Dose: 250 mg Vitamin B Complex/Vit C/Folic Acid (Nephro-Bhupinder) 1 tab PO 0800 [facility] [place] Last Admin: 05/06/18 08:28 Dose: 1 tab Zolpidem Tartrate (Ambien) 10 mg PO HS [facility] [place]; Protocol Last Admin: 05/06/18 22:14 Dose: 10 mg - Labs Labs: 05/04/18 06:20 05/04/18 06:20 PT 13.2 SECONDS (9.4-12.5) H 04/03/18 15:44 INR 1.15 04/03/18 15:44 APTT 30.7 Seconds (25.1-36.5) 04/03/18 15:44 - Constitutional Appears: Non-toxic, No Acute Distress - Head Exam Head Exam: ATRAUMATIC, NORMAL INSPECTION, NORMOCEPHALIC - Eye Exam Eye Exam: EOMI, Normal appearance, PERRL - Respiratory Exam Respiratory Exam: Clear to Ausculation Bilateral, NORMAL BREATHING PATTERN. absent: Accessory Muscle Use, Rales, Rhonchi, Wheezes, Respiratory Distress, Stridor - Cardiovascular Exam Cardiovascular Exam: RRR, +S1, +S2. absent: Gallop, Rubs - GI/Abdominal Exam GI & Abdominal Exam: Soft, Normal Bowel Sounds. absent: Firm, Guarding, Rigid, Tenderness - Extremities Exam Extremities Exam: Normal Capillary Refill, Pedal Edema (3+ pitting edema). absent: Calf Tenderness - Back Exam Back Exam: NORMAL INSPECTION. absent: CVA tenderness (L), CVA tenderness (R) - Neurological Exam Neurological Exam: Alert, Awake, Oriented x3 - Psychiatric Exam Psychiatric exam: Normal Affect, Normal Mood - Skin Skin Exam: Dry, Normal Color, Warm Assessment and Plan - Assessment and Plan (Free Text) Assessment: Pt is a 52 yo F with past medical history liver failure, morbid obesity, and EtOH abuse presents to [facility] for worsening weakness and admitted for management of anemia and FELIPE with metabolic acidosis. Focusing on outpatient HD placement and PT at this time. Pt is awaiting placement for [facility]. Plan: 1) C. Diff - Improving - C. diff antigen and toxin positive - PO vancomycin day 10 out of 10 - had 4 bouts of diarrhea last night, more formed from previous - Leukocytosis - resolved, WBC now wnl - contact precautions 2) Depression - Psych on consult, Dr. Ramos - continue xanax prn, prozac and ambien 3) Acute renal failure - Improved - On HD MWF - Had HD yesterday - Working with block and case maker for outpatient HD setup - Found HD placement, awaiting [facility] placement - Will get blood work weekly - Renal US is unremarkable - Strict I's and O's - Nephrology on consult, Dr. Salmeron, recs appreciated - Continue Aldactone, midodrine 4) Chronic lymphedema of B/L legs - Improving - Pt states improvement after multiple HD sessions - podiatry on consult, no further recommendations, local wound care for now - not currently draining/weeping - repeat ext US shows possible right SFA occlusive disease, limited study due to artifact - wound culture grew Enterobacter Cloacae, E. faecalis - superficial bacteria colonizers - PT recommends [facility], awaiting placement 5) Microcytic anemia - s/p total 11 units pRBCs, 2 FFPs - endoscopy showed 3 non bleeding gastric ulcers, largest one 8mm - oral iron started - Iron studies shows likely iron deficiency - Head CT unremarkable - CTAP shows adenopathy of the hepatic gastric ligament - GI on consult, Dr. Melo - recs appreciated 6) Fever - resolved -afebrile, no WBC -positive flu type A, completed course of tamiflu -completed course of merrem for UTI with klebsiella -CXR showed moderate cardiomegaly, vascular congestion -blood culture shows no growth after 5 days 7) Elevated BNP -BNP 23316 on admission -Echo showed EF of 68%, mild TR/MR, mild pulm HTN, borderline LVH PPX/Diet -protonix, heparin -renal, fiber diet Dispo: Awaiting [facility] placement Patient seen and case discussed with attending, Dr. Rusty Garrett, PGY-1 <Sagrario Ojeda - Last Filed: 05/08/18 17:36> Objective - Vital Signs/Intake and Output Vital Signs (last 24 hours): Temp Pulse Resp BP Pulse Ox 98.3 F 87 20 120/58 L 98 05/07/18 23:02 05/07/18 23:02 05/07/18 23:02 05/07/18 23:02 05/07/18 23:02 Intake and Output: 05/08/18 05/08/18 06:59 18:59 Output Total 240 Balance -240 - Medications Medications: Current Medications Acetaminophen (Tylenol 325mg Tab) 650 mg PO Q6 PRN PRN Reason: Fever >100.4 F Last Admin: 04/13/18 05:56 Dose: 650 mg Alprazolam (Xanax) 0.25 mg PO TID PRN; Protocol PRN Reason: Anxiety Last Admin: 04/30/18 15:05 Dose: 0.25 mg Cyclobenzaprine HCl (Flexeril) 5 mg PO TID [facility] Last Admin: 05/08/18 13:31 Dose: 5 mg Darbepoetin Fletcher (Aranesp) 200 mcg IVP QWK [facility] [place] Last Admin: 04/30/18 09:36 Dose: 200 mcg Ergocalciferol (Drisdol 50,000 Intl Units Cap) 1 cap PO Q7D [facility] [place] Stop: 06/26/18 13:01 Last Admin: 05/08/18 13:31 Dose: 1 cap Fluoxetine HCl (Prozac) 40 mg PO DAILY [facility] [place] Last Admin: 05/08/18 09:21 Dose: 40 mg Heparin Sodium (Porcine) (Heparin) 5,000 units SC Q8 [facility] [place]; Protocol Last Admin: 05/08/18 13:31 Dose: 5,000 units Heparin Sodium (Porcine) (Heparin) 2,000 units IVP MWF [facility] [place]; Protocol Last Admin: 05/04/18 10:18 Dose: 2,000 units Iron Sucrose 100 mg/ Sodium (Chloride) 105 mls @ 210 mls/hr IVPB QWK [facility] [place] Stop: 05/18/18 10:29 Last Admin: 05/04/18 12:59 Dose: 210 mls/hr Midodrine (Proamatine) 10 mg PO MWF [facility] [place] Last Admin: 05/07/18 13:45 Dose: 10 mg Multi-Ingredient Ointment (Hydrophor Oint) 0 gm TOP Q12 [facility] [place] Last Admin: 05/08/18 09:24 Dose: 1 appl Pantoprazole Sodium (Protonix Ec Tab) 40 mg PO 0600,1600 [facility] [place] Last Admin: 05/08/18 15:20 Dose: 40 mg Spironolactone (Aldactone) 50 mg PO DAILY [facility] [place] Stop: 05/25/18 10:01 Last Admin: 05/08/18 09:22 Dose: 50 mg Vitamin B Complex/Vit C/Folic Acid (Nephro-Bhupinder) 1 tab PO 0800 [facility] [place] Last Admin: 05/08/18 09:22 Dose: 1 tab Zolpidem Tartrate (Ambien) 10 mg PO HS [facility] [place]; Protocol Last Admin: 05/07/18 21:53 Dose: 10 mg - Labs Labs: 05/07/18 10:00 05/07/18 10:00 PT 13.2 SECONDS (9.4-12.5) H 04/03/18 15:44 INR 1.15 04/03/18 15:44 APTT 30.7 Seconds (25.1-36.5) 04/03/18 15:44 Attending/Attestation - Attestation I have personally seen and examined this patient.: Yes I have fully participated in the care of the patient.: Yes I have reviewed all pertinent clinical information, including history, physical exam and plan: Yes Notes (Text): 05/08/18 17:35 Medical record note made by the resident after discussion with my direction and input after the patient was personally seen and examined by me. I have reviewed the chart and agree that the record accurately reflects by personal performance of the history, physical exam, data review, and medical decision-making, in the course for the patient. I have also personally directed the plan of care.
[2018-05-07 10:13] LABS: HEMOGLOBIN 9.3 g/dL (12.0-16.0); MEAN CELL VOLUME 89.5 fl (80.0-105.0); MEAN CORPUSCULAR HEMOGLOBIN 27.8 pg (25.0-35.0); MEAN CORPUSCULAR HGB CONC 31.1 g/dl (31.0-37.0); RBC 3.34 10^6/uL (3.5-6.1); RED CELL DISTRIBUTION WIDTH 20.3 % (11.5-14.5); WHITE BLOOD COUNT 7.4 10^3/uL (4.5-11.0)
[2018-05-07 10:20] LABS: ALB/GLOB RATIO 0.6 (1.1-1.8); CALCIUM 7.7 mg/dL (8.4-10.5)
--- NOTE | 2018-05-07 12:41 | CP.PCM.PN ---
Subjective - Date & Time of Evaluation Date of Evaluation: 05/07/18 Time of Evaluation: 12:10 - Subjective Subjective: Went for dialysis today, diarrhea is improving. No fevers. Objective - Vital Signs/Intake and Output Vital Signs (last 24 hours): Temp Pulse Resp BP Pulse Ox 98.4 F 84 20 110/55 L 98 05/06/18 06:00 05/06/18 06:00 05/06/18 06:00 05/06/18 06:00 05/06/18 06:00 Intake and Output: 05/06/18 05/06/18 06:59 18:59 Intake Total 400 Balance 400 - Medications Medications: Current Medications Acetaminophen (Tylenol 325mg Tab) 650 mg PO Q6 PRN PRN Reason: Fever >100.4 F Last Admin: 04/13/18 05:56 Dose: 650 mg Alprazolam (Xanax) 0.25 mg PO TID PRN; Protocol PRN Reason: Anxiety Last Admin: 04/30/18 15:05 Dose: 0.25 mg Benzonatate (Tessalon Perles) 100 mg PO TID PRN PRN Reason: Cough Last Admin: 05/05/18 10:57 Dose: 100 mg Cyclobenzaprine HCl (Flexeril) 5 mg PO TID [facility] Last Admin: 05/06/18 10:13 Dose: 5 mg Darbepoetin Fletcher (Aranesp) 200 mcg IVP QWK [facility] Last Admin: 04/30/18 09:36 Dose: 200 mcg Ergocalciferol (Drisdol 50,000 Intl Units Cap) 1 cap PO Q7D [facility] Last Admin: 05/06/18 10:16 Dose: 1 cap Fluoxetine HCl (Prozac) 40 mg PO DAILY [facility] Last Admin: 05/06/18 10:12 Dose: 40 mg Heparin Sodium (Porcine) (Heparin) 5,000 units SC Q8 [facility]; Protocol Last Admin: 05/06/18 05:50 Dose: 5,000 units Heparin Sodium (Porcine) (Heparin) 2,000 units IVP MWF [facility]; Protocol Last Admin: 05/04/18 10:18 Dose: 2,000 units Iron Sucrose 100 mg/ Sodium (Chloride) 105 mls @ 210 mls/hr IVPB QWK [facility] Stop: 05/18/18 10:29 Last Admin: 05/04/18 12:59 Dose: 210 mls/hr Midodrine (Proamatine) 10 mg PO MWF [facility] Last Admin: 05/04/18 08:14 Dose: 10 mg Multi-Ingredient Ointment (Hydrophor Oint) 0 gm TOP Q12 [facility] Last Admin: 05/06/18 10:16 Dose: 1 appl Pantoprazole Sodium (Protonix Ec Tab) 40 mg PO 0600,1600 [facility] Last Admin: 05/06/18 05:50 Dose: 40 mg Spironolactone (Aldactone) 50 mg PO DAILY [facility] Stop: 05/25/18 10:01 Last Admin: 05/06/18 10:13 Dose: 50 mg Vancomycin HCl (Vancocin 25 Mg/Ml (Oral Use)) 250 mg PO QID [facility]; Protocol Last Admin: 05/06/18 10:16 Dose: 250 mg Vitamin B Complex/Vit C/Folic Acid (Nephro-Bhupinder) 1 tab PO 0800 [facility] Last Admin: 05/06/18 08:28 Dose: 1 tab Zolpidem Tartrate (Ambien) 10 mg PO HS [facility]; Protocol Last Admin: 05/05/18 21:52 Dose: 10 mg - Labs Labs: 05/04/18 06:20 05/04/18 06:20 PT 13.2 SECONDS (9.4-12.5) H 04/03/18 15:44 INR 1.15 04/03/18 15:44 APTT 30.7 Seconds (25.1-36.5) 04/03/18 15:44 - Constitutional Appears: Chronically Ill - Head Exam Head Exam: NORMAL INSPECTION - Respiratory Exam Respiratory Exam: Decreased Breath Sounds - Cardiovascular Exam Cardiovascular Exam: +S1, +S2 - GI/Abdominal Exam GI & Abdominal Exam: Soft. absent: Tenderness Assessment and Plan - Assessment and Plan (Free Text) Plan: Assessment C. diff. colitis S/P treatment of Influenza A infection S/P UTI with Klebsiella chronic lymphedema of lower extremities without evidence of cellulitis morbid obesity with BMI 52 chronic renal failure on dialysis R/O peripheral vascular disease Plan will continue PO Vancomycin day 14 for up to 14 days continue to monitor clinically
--- NOTE | 2018-05-07 12:51 | CP.PCM.PN ---
Subjective - Date & Time of Evaluation Date of Evaluation: 05/07/18 Time of Evaluation: 12:50 - Subjective Subjective: Nephrology Consultation Note: Assessment: stable oligoanuric Acute Kidney Injury (N17.9) likely due to ATN, pre-renal state, intrasvasc hypovolemia, impaired renal perfusion, HD 04/05/18: first session. probably ESRD anasarca severe symptomatic anemia due to GI bleed with gastric ulcers mild hyperkalemia and HAGMA, hyperphos hx of cirrhosis and etoh intra-ab lymphadenopathy morbid obesity acute influenza C diff colitis Plan HD tolerated well so far, on MWF schedule. 24 hr crcl: 6 and volume 200 mL. no evidence of renal recovery yet. probably ESRD Maintain hemodynamics stable. Avoid hypotension. Patient not on ACEI/ARB due to recent FELIPE. added midodrine pre HD Monitor Input/Output, daily weights and renal function with basic metabolic panel held phos binders due to diarrhoea PRBC as needed. s/p 1 gram IV iron, now on weekly aranesp/IV iron GI consult, pt on PPI work up for FELIPE and anemia as ordered. GN work up neg hence will defer kidney biopsy. also pt with liver disease and morbidly obese. started weekly vit d consider further work up for ascites. started on aldactone 50 mg/d to reduce portal HTN on antibiotics for c.diff Dose meds/antibiotics for reduced GFR. Avoid fleets enema/magnesium based laxatives. Avoid nephrotoxins/NSAIDs/ iodinated contrast (unless needed emergently) Glycemic control Further work up/management as per primary team she is arranged for outpt HD. Thanks for allowing me to participate in care of your patient. Will follow patient with you. Please call if any Qs. had d/w team Dr Kenji Salmeron Office: [phone] Chief Complaint; fatigue Reason for consult: Acute Kidney Injury HPI: Pt is a 52 F with hx of alcoholism in past, cirrhosis (pt states got better on its own in past) but no regular follow up with PMD presented with complaints of fatigue and tiredness for last few days, found to have severe anemia and FELIPE Denies OTC/herbal meds but NSAIDs as alleve for last few days No recent iodinated contrast exposure. Noted obvious episodes of low BP. reports chronic leg swelling but more now denies smoking or etoh now ROS: c/o swelling in leg. had gastric ulcers on EGD Cardiovascular: No chest pain. Pulmonary: improved shortness of breath but with cough Gastrointestinal: denies abdominal pain No nausea. No vomiting. diarrhoea reso lved. Genitourinary: not much UOP All other negative except as mentioned in HPI feels sad that she is still bed-bound Physical Examination: seen on HD General Appearance: Comfortable, in no acute respiratory distress, co-operative . morbid obese Vitals reviewed and noted as below Head; Atraumatic, normocephalic ENT: no ulcers no thrush. Tongue is midline. Oropharynx: no rash or ulcers. EYES: Pupils are equal, round and reactive to light accommodation. Eye muscles and extraocular movement intact. Sclera is anicteric. Neck; supple no lymphadenopathy, no thyromegaly or bruit Lungs: Normal respiratory rate/effort. Breath sounds bilateral clear Heart: Normal rate. s1s2 normal. No rub or gallop. Extremities: 1-2+ edema. Neurological: Patient is alert, awake and oriented to person, place and time. No focal deficit. Strength bilateral appropriate and equal Skin: Warm and dry. Normal turgor. spider angioma rash upper chest. Palpitation: Normal elasticity for age Abdomen: Abdomen is soft. Bowel sounds +. There is no abdominal tenderness, no guarding/rigidity no organomegaly. limited due to obesity and abd wall edema Psych: normal insight and flat affect/mood MSK: no joint tenderness or swelling. Digits and nails normal, no deformity : kidney or bladder not palpable. has access as permacath Labs/imaging reviewed. Past medical history, past surgical history, family history, social history, allergy reviewed and noted as below Family hx: no hx of CKD. Rest non-contributory fena 0.3% intra-ab lymphadenopathy Objective - Vital Signs/Intake and Output Vital Signs (last 24 hours): Temp Pulse Resp BP Pulse Ox 98 F 79 20 105/55 L 98 05/07/18 06:00 05/07/18 06:00 05/07/18 06:00 05/07/18 06:00 05/07/18 06:00 - Medications Medications: Current Medications Acetaminophen (Tylenol 325mg Tab) 650 mg PO Q6 PRN PRN Reason: Fever >100.4 F Last Admin: 04/13/18 05:56 Dose: 650 mg Alprazolam (Xanax) 0.25 mg PO TID PRN; Protocol PRN Reason: Anxiety Last Admin: 04/30/18 15:05 Dose: 0.25 mg Benzonatate (Tessalon Perles) 100 mg PO TID PRN PRN Reason: Cough Last Admin: 05/05/18 10:57 Dose: 100 mg Cyclobenzaprine HCl (Flexeril) 5 mg PO TID [facility] Last Admin: 05/06/18 18:45 Dose: 5 mg Darbepoetin Fletcher (Aranesp) 200 mcg IVP QWK [facility] Last Admin: 04/30/18 09:36 Dose: 200 mcg Fluoxetine HCl (Prozac) 40 mg PO DAILY [facility] Last Admin: 05/06/18 10:12 Dose: 40 mg Heparin Sodium (Porcine) (Heparin) 5,000 units SC Q8 [facility]; Protocol Last Admin: 05/07/18 06:39 Dose: 5,000 units Heparin Sodium (Porcine) (Heparin) 2,000 units IVP MWF [facility]; Protocol Last Admin: 05/04/18 10:18 Dose: 2,000 units Iron Sucrose 100 mg/ Sodium (Chloride) 105 mls @ 210 mls/hr IVPB QWK [facility] Stop: 05/18/18 10:29 Last Admin: 05/04/18 12:59 Dose: 210 mls/hr Midodrine (Proamatine) 10 mg PO MWF [facility] Last Admin: 05/04/18 08:14 Dose: 10 mg Multi-Ingredient Ointment (Hydrophor Oint) 0 gm TOP Q12 [facility] Last Admin: 05/06/18 22:09 Dose: 1 appl Pantoprazole Sodium (Protonix Ec Tab) 40 mg PO 0600,1600 [facility] Last Admin: 05/07/18 06:39 Dose: 40 mg Spironolactone (Aldactone) 50 mg PO DAILY [facility] Stop: 05/25/18 10:01 Last Admin: 05/06/18 10:13 Dose: 50 mg Vancomycin HCl (Vancocin 25 Mg/Ml (Oral Use)) 250 mg PO QID [facility]; Protocol Last Admin: 05/06/18 22:11 Dose: 250 mg Vitamin B Complex/Vit C/Folic Acid (Nephro-Bhupinder) 1 tab PO 0800 [facility] Last Admin: 05/07/18 08:13 Dose: 1 tab Zolpidem Tartrate (Ambien) 10 mg PO HS [facility]; Protocol Last Admin: 05/06/18 22:14 Dose: 10 mg - Labs Labs: 05/07/18 10:00 05/07/18 10:00 PT 13.2 SECONDS (9.4-12.5) H 04/03/18 15:44 INR 1.15 04/03/18 15:44 APTT 30.7 Seconds (25.1-36.5) 04/03/18 15:44
[2018-05-07] MEDS: Vancomycin 25 MG/ML PO SCH ×4 (13:38→21:54)
[2018-05-07] MEDS: Petrolatum-Mineral Oil Oint (100gm) TOP SCH ×2 (13:47→21:54)
[2018-05-08] MEDS: Pantoprazole 40 mg EC Tab PO SCH ×2 (06:18→15:20)
--- NOTE | 2018-05-08 06:54 | CP.PCM.PN ---
<Robina Garrett - Last Filed: 05/08/18 15:48> Subjective - Date & Time of Evaluation Date of Evaluation: 05/08/18 Time of Evaluation: 08:51 - Subjective Subjective: Robina Garrett, PGY-1 Medicine Progress Note for Dr. Ojeda: Pt was seen and examined this AM at bedside. Pt is scheduled for dialysis tomorrow, she had 2 bouts of diarrhea since last night, but they are more formed. She states that she was able to sleep through the night and had no acute events. She also states that she is tolerating her diet and is not having any abdominal pain. She denies fevers, chills, cp, sob, cough, abd pain, n/v, c/d, or dysuria. Still awaiting JENNA placement. Objective - Vital Signs/Intake and Output Vital Signs (last 24 hours): Temp Pulse Resp BP Pulse Ox 98.3 F 87 20 120/58 L 98 05/07/18 23:02 05/07/18 23:02 05/07/18 23:02 05/07/18 23:02 05/07/18 23:02 Intake and Output: 05/07/18 05/08/18 18:59 06:59 Output Total 240 Balance -240 - Medications Medications: Current Medications Acetaminophen (Tylenol 325mg Tab) 650 mg PO Q6 PRN PRN Reason: Fever >100.4 F Last Admin: 04/13/18 05:56 Dose: 650 mg Alprazolam (Xanax) 0.25 mg PO TID PRN; Protocol PRN Reason: Anxiety Last Admin: 04/30/18 15:05 Dose: 0.25 mg Benzonatate (Tessalon Perles) 100 mg PO TID PRN PRN Reason: Cough Last Admin: 05/05/18 10:57 Dose: 100 mg Cyclobenzaprine HCl (Flexeril) 5 mg PO TID [facility] Last Admin: 05/07/18 17:08 Dose: 5 mg Darbepoetin Fletcher (Aranesp) 200 mcg IVP QWK [facility] Last Admin: 04/30/18 09:36 Dose: 200 mcg Ergocalciferol (Drisdol 50,000 Intl Units Cap) 1 cap PO Q7D [facility] Stop: 06/26/18 13:01 Fluoxetine HCl (Prozac) 40 mg PO DAILY [facility] Last Admin: 05/07/18 13:40 Dose: 40 mg Heparin Sodium (Porcine) (Heparin) 5,000 units SC Q8 [facility]; Protocol Last Admin: 05/08/18 06:21 Dose: 5,000 units Heparin Sodium (Porcine) (Heparin) 2,000 units IVP MWF [facility]; Protocol Last Admin: 05/04/18 10:18 Dose: 2,000 units Iron Sucrose 100 mg/ Sodium (Chloride) 105 mls @ 210 mls/hr IVPB QWK [facility] Stop: 05/18/18 10:29 Last Admin: 05/04/18 12:59 Dose: 210 mls/hr Midodrine (Proamatine) 10 mg PO MWF [facility] Last Admin: 05/07/18 13:45 Dose: 10 mg Multi-Ingredient Ointment (Hydrophor Oint) 0 gm TOP Q12 [facility] Last Admin: 05/07/18 21:54 Dose: 1 appl Pantoprazole Sodium (Protonix Ec Tab) 40 mg PO 0600,1600 [facility] Last Admin: 05/08/18 06:18 Dose: 40 mg Spironolactone (Aldactone) 50 mg PO DAILY [facility] Stop: 05/25/18 10:01 Last Admin: 05/07/18 13:39 Dose: 50 mg Vitamin B Complex/Vit C/Folic Acid (Nephro-Bhupinder) 1 tab PO 0800 [facility] Last Admin: 05/07/18 08:13 Dose: 1 tab Zolpidem Tartrate (Ambien) 10 mg PO HS [facility]; Protocol Last Admin: 05/07/18 21:53 Dose: 10 mg - Labs Labs: 05/07/18 10:00 05/07/18 10:00 PT 13.2 SECONDS (9.4-12.5) H 04/03/18 15:44 INR 1.15 04/03/18 15:44 APTT 30.7 Seconds (25.1-36.5) 04/03/18 15:44 - Constitutional Appears: Non-toxic, No Acute Distress - Head Exam Head Exam: ATRAUMATIC, NORMAL INSPECTION, NORMOCEPHALIC - Eye Exam Eye Exam: EOMI, Normal appearance, PERRL - Respiratory Exam Respiratory Exam: Clear to Ausculation Bilateral, NORMAL BREATHING PATTERN. absent: Accessory Muscle Use, Rales, Rhonchi, Wheezes, Respiratory Distress - Cardiovascular Exam Cardiovascular Exam: RRR, +S1, +S2. absent: Gallop, Rubs - GI/Abdominal Exam GI & Abdominal Exam: Soft, Normal Bowel Sounds. absent: Firm, Guarding, Rigid, Tenderness - Extremities Exam Extremities Exam: Normal Capillary Refill, Pedal Edema (3+ b/l pitting edema). absent: Calf Tenderness, Tenderness - Back Exam Back Exam: NORMAL INSPECTION. absent: CVA tenderness (L), CVA tenderness (R) - Neurological Exam Neurological Exam: Alert, Awake, Oriented x3 - Psychiatric Exam Psychiatric exam: Normal Affect, Normal Mood - Skin Skin Exam: Dry, Normal Color, Warm Assessment and Plan - Assessment and Plan (Free Text) Assessment: Pt is a 52 yo F with past medical history liver failure, morbid obesity, and EtOH abuse presents to [facility] for worsening weakness and admitted for management of anemia and FELIPE with metabolic acidosis. Focusing on outpatient HD placement and PT at this time. Pt is awaiting placement for JENNA. Plan: 1) C. Diff - Improved - C. diff antigen and toxin positive - Vanc d/nick, pt has improved symptomatically - Leukocytosis - resolved, WBC now wnl - contact precautions 2) Depression - Psych on consult, Dr. Ramos - continue xanax prn, prozac and ambien 3) Acute renal failure - Improved - On HD MWF - Had HD yesterday - Working with case hardener for outpatient HD setup - Found HD placement, awaiting JENNA placement - Will get blood work weekly - Renal US is unremarkable - Strict I's and O's - Nephrology on consult, Dr. Salmeron, recs appreciated - Continue Aldactone, midodrine 4) Chronic lymphedema of B/L legs - Improving - Pt states improvement after multiple HD sessions - podiatry on consult, no further recommendations, local wound care for now - not currently draining/weeping - repeat ext US shows possible right SFA occlusive disease, limited study due to artifact - wound culture grew Enterobacter Cloacae, E. faecalis - superficial bacteria colonizers - PT recommends JENNA, awaiting placement 5) Microcytic anemia - s/p total 11 units pRBCs, 2 FFPs - endoscopy showed 3 non bleeding gastric ulcers, largest one 8mm - oral iron started - Iron studies shows likely iron deficiency - Head CT unremarkable - CTAP shows adenopathy of the hepatic gastric ligament - GI on consult, Dr. Melo - recs appreciated 6) Fever - resolved -afebrile, no WBC -positive flu type A, completed course of tamiflu -completed course of merrem for UTI with klebsiella -CXR showed moderate cardiomegaly, vascular congestion -blood culture shows no growth after 5 days 7) Elevated BNP -BNP 45594 on admission -Echo showed EF of 68%, mild TR/MR, mild pulm HTN, borderline LVH PPX/Diet -protonix, heparin -renal, fiber diet Dispo: Awaiting JENNA placement Patient seen and case discussed with attending, Dr. Rusty Garrett, PGY-1 <Sagrario Ojeda - Last Filed: 05/08/18 17:34> Objective - Vital Signs/Intake and Output Vital Signs (last 24 hours): Temp Pulse Resp BP Pulse Ox 98.3 F 87 20 120/58 L 98 05/07/18 23:02 05/07/18 23:02 05/07/18 23:02 05/07/18 23:02 05/07/18 23:02 Intake and Output: 05/08/18 05/08/18 06:59 18:59 Output Total 240 Balance -240 - Medications Medications: Current Medications Acetaminophen (Tylenol 325mg Tab) 650 mg PO Q6 PRN PRN Reason: Fever >100.4 F Last Admin: 04/13/18 05:56 Dose: 650 mg Alprazolam (Xanax) 0.25 mg PO TID PRN; Protocol PRN Reason: Anxiety Last Admin: 04/30/18 15:05 Dose: 0.25 mg Cyclobenzaprine HCl (Flexeril) 5 mg PO TID [facility] Last Admin: 05/08/18 13:31 Dose: 5 mg Darbepoetin Feltcher (Aranesp) 200 mcg IVP QWK [facility] Last Admin: 04/30/18 09:36 Dose: 200 mcg Ergocalciferol (Drisdol 50,000 Intl Units Cap) 1 cap PO Q7D [facility] Stop: 06/26/18 13:01 Last Admin: 05/08/18 13:31 Dose: 1 cap Fluoxetine HCl (Prozac) 40 mg PO DAILY [facility] Last Admin: 05/08/18 09:21 Dose: 40 mg Heparin Sodium (Porcine) (Heparin) 5,000 units SC Q8 [facility]; Protocol Last Admin: 05/08/18 13:31 Dose: 5,000 units Heparin Sodium (Porcine) (Heparin) 2,000 units IVP [facility]; Protocol Last Admin: 05/04/18 10:18 Dose: 2,000 units Iron Sucrose 100 mg/ Sodium (Chloride) 105 mls @ 210 mls/hr IVPB QWK [facility] Stop: 05/18/18 10:29 Last Admin: 05/04/18 12:59 Dose: 210 mls/hr Midodrine (Proamatine) 10 mg PO F [facility] Last Admin: 05/07/18 13:45 Dose: 10 mg Multi-Ingredient Ointment (Hydrophor Oint) 0 gm TOP Q12 [facility] Last Admin: 05/08/18 09:24 Dose: 1 appl Pantoprazole Sodium (Protonix Ec Tab) 40 mg PO 0600,1600 [facility] Last Admin: 05/08/18 15:20 Dose: 40 mg Spironolactone (Aldactone) 50 mg PO DAILY [facility] Stop: 05/25/18 10:01 Last Admin: 05/08/18 09:22 Dose: 50 mg Vitamin B Complex/Vit C/Folic Acid (Nephro-Bhupinder) 1 tab PO 0800 [facility] Last Admin: 05/08/18 09:22 Dose: 1 tab Zolpidem Tartrate (Ambien) 10 mg PO [facility]; Protocol Last Admin: 05/07/18 21:53 Dose: 10 mg - Labs Labs: 05/07/18 10:00 05/07/18 10:00 PT 13.2 SECONDS (9.4-12.5) H 04/03/18 15:44 INR 1.15 04/03/18 15:44 APTT 30.7 Seconds (25.1-36.5) 04/03/18 15:44 Attending/Attestation - Attestation I have personally seen and examined this patient.: Yes I have fully participated in the care of the patient.: Yes I have reviewed all pertinent clinical information, including history, physical exam and plan: Yes Notes (Text): 05/08/18 17:34 Medical record note made by the resident after discussion with my direction and input after the patient was personally seen and examined by me. I have reviewed the chart and agree that the record accurately reflects by personal performance of the history, physical exam, data review, and medical decision-making, in the course for the patient. I have also personally directed the plan of care.
--- NOTE | 2018-05-08 09:07 | CP.PCM.PCO ---
Physician Communication Note - Physician Communication Note Physician Communication Note: Psych team signed off, please reconsult in case of worsening of symptoms
[2018-05-08] MEDS: Multivitamin Vitamin B Complex (Nephro-Vite) Tab PO SCH (09:22)
[2018-05-08] MEDS: Petrolatum-Mineral Oil Oint (100gm) TOP SCH ×2 (09:24→23:06)
--- NOTE | 2018-05-08 12:39 | CP.PCM.PN ---
Subjective - Date & Time of Evaluation Date of Evaluation: 05/08/18 Time of Evaluation: 12:39 - Subjective Subjective: Nephrology Consultation Note: Assessment: stable oligoanuric Acute Kidney Injury (N17.9) likely due to ATN, pre-renal state, intrasvasc hypovolemia, impaired renal perfusion, HD 04/05/18: first session. probably ESRD anasarca severe symptomatic anemia due to GI bleed with gastric ulcers mild hyperkalemia and HAGMA, hyperphos hx of cirrhosis and etoh intra-ab lymphadenopathy morbid obesity acute influenza C diff colitis Plan HD tolerated well so far, on MWF schedule. 24 hr crcl: 6 and volume 200 mL. no evidence of renal recovery yet. probably ESRD Maintain hemodynamics stable. Avoid hypotension. Patient not on ACEI/ARB due to recent FELIPE. added midodrine pre HD Monitor Input/Output, daily weights and renal function with basic metabolic panel held phos binders due to diarrhoea PRBC as needed. s/p 1 gram IV iron, now on weekly aranesp/IV iron GI consult, pt on PPI work up for FELIPE and anemia as ordered. GN work up neg hence will defer kidney biopsy. also pt with liver disease and morbidly obese. started weekly vit d consider further work up for ascites. started on aldactone 50 mg/d to reduce portal HTN on antibiotics for c.diff Dose meds/antibiotics for reduced GFR. Avoid fleets enema/magnesium based laxatives. Avoid nephrotoxins/NSAIDs/ iodinated contrast (unless needed emergently) Glycemic control Further work up/management as per primary team she is arranged for outpt HD. Thanks for allowing me to participate in care of your patient. Will follow patient with you. Please call if any Qs. had d/w team Dr Kenji Salmeron Office: [phone] Chief Complaint; fatigue Reason for consult: Acute Kidney Injury HPI: Pt is a 52 F with hx of alcoholism in past, cirrhosis (pt states got better on its own in past) but no regular follow up with PMD presented with complaints of fatigue and tiredness for last few days, found to have severe anemia and FELIPE Denies OTC/herbal meds but NSAIDs as alleve for last few days No recent iodinated contrast exposure. Noted obvious episodes of low BP. reports chronic leg swelling but more now denies smoking or etoh now ROS: Cardiovascular: No chest pain. Pulmonary: no shortness of breath no cough Gastrointestinal: denies abdominal pain No nausea. No vomiting. diarrhoea resolved. Genitourinary: not much UOP All other negative except as mentioned in HPI Physical Examination: General Appearance: Comfortable, in no acute respiratory distress, co-operative . morbid obese Vitals reviewed and noted as below Head; Atraumatic, normocephalic ENT: no ulcers no thrush. Tongue is midline. Oropharynx: no rash or ulcers. EYES: Pupils are equal, round and reactive to light accommodation. Eye muscles and extraocular movement intact. Sclera is anicteric. Neck; supple no lymphadenopathy, no thyromegaly or bruit Lungs: Normal respiratory rate/effort. Breath sounds bilateral clear Heart: Normal rate. s1s2 normal. No rub or gallop. Extremities: 1-2+ edema. Neurological: Patient is alert, awake and oriented to person, place and time. No focal deficit. Strength bilateral appropriate and equal Skin: Warm and dry. Normal turgor. spider angioma rash upper chest. Palpitation: Normal elasticity for age Abdomen: Abdomen is soft. Bowel sounds +. There is no abdominal tenderness, no guarding/rigidity no organomegaly. limited due to obesity and abd wall edema Psych: normal insight and flat affect/mood MSK: no joint tenderness or swelling. Digits and nails normal, no deformity : kidney or bladder not palpable. has access as permacath Labs/imaging reviewed. Past medical history, past surgical history, family history, social history, allergy reviewed and noted as below Family hx: no hx of CKD. Rest non-contributory fena 0.3% intra-ab lymphadenopathy Objective - Vital Signs/Intake and Output Vital Signs (last 24 hours): Temp Pulse Resp BP Pulse Ox 98.3 F 87 20 120/58 L 98 05/07/18 23:02 05/07/18 23:02 05/07/18 23:02 05/07/18 23:02 05/07/18 23:02 Intake and Output: 05/08/18 05/08/18 06:59 18:59 Output Total 240 Balance -240 - Medications Medications: Current Medications Acetaminophen (Tylenol 325mg Tab) 650 mg PO Q6 PRN PRN Reason: Fever >100.4 F Last Admin: 04/13/18 05:56 Dose: 650 mg Alprazolam (Xanax) 0.25 mg PO TID PRN; Protocol PRN Reason: Anxiety Last Admin: 04/30/18 15:05 Dose: 0.25 mg Benzonatate (Tessalon Perles) 100 mg PO TID PRN PRN Reason: Cough Last Admin: 05/05/18 10:57 Dose: 100 mg Cyclobenzaprine HCl (Flexeril) 5 mg PO TID [facility] Last Admin: 05/08/18 09:22 Dose: 5 mg Darbepoetin Fletcher (Aranesp) 200 mcg IVP QWK [facility] Last Admin: 04/30/18 09:36 Dose: 200 mcg Ergocalciferol (Drisdol 50,000 Intl Units Cap) 1 cap PO Q7D [facility] Stop: 06/26/18 13:01 Fluoxetine HCl (Prozac) 40 mg PO DAILY [facility] Last Admin: 05/08/18 09:21 Dose: 40 mg Heparin Sodium (Porcine) (Heparin) 5,000 units SC Q8 [facility]; Protocol Last Admin: 05/08/18 06:21 Dose: 5,000 units Heparin Sodium (Porcine) (Heparin) 2,000 units IVP MWF [facility]; Protocol Last Admin: 05/04/18 10:18 Dose: 2,000 units Iron Sucrose 100 mg/ Sodium (Chloride) 105 mls @ 210 mls/hr IVPB QWK [facility] Stop: 05/18/18 10:29 Last Admin: 05/04/18 12:59 Dose: 210 mls/hr Midodrine (Proamatine) 10 mg PO MWF [facility] Last Admin: 05/07/18 13:45 Dose: 10 mg Multi-Ingredient Ointment (Hydrophor Oint) 0 gm TOP Q12 [facility] Last Admin: 05/08/18 09:24 Dose: 1 appl Pantoprazole Sodium (Protonix Ec Tab) 40 mg PO 0600,1600 [facility] Last Admin: 05/08/18 06:18 Dose: 40 mg Spironolactone (Aldactone) 50 mg PO DAILY [facility] Stop: 05/25/18 10:01 Last Admin: 05/08/18 09:22 Dose: 50 mg Vitamin B Complex/Vit C/Folic Acid (Nephro-Bhupinder) 1 tab PO 0800 [facility] Last Admin: 05/08/18 09:22 Dose: 1 tab Zolpidem Tartrate (Ambien) 10 mg PO HS [facility]; Protocol Last Admin: 05/07/18 21:53 Dose: 10 mg - Labs Labs: 05/07/18 10:00 05/07/18 10:00 PT 13.2 SECONDS (9.4-12.5) H 04/03/18 15:44 INR 1.15 04/03/18 15:44 APTT 30.7 Seconds (25.1-36.5) 04/03/18 15:44
[2018-05-08] MEDS ORDERED: Ergocalciferol 50,000 Intl Units Cap PO SCH (13:00)
--- NOTE | 2018-05-08 13:57 | CP.PCM.PN ---
Subjective - Date & Time of Evaluation Date of Evaluation: 05/08/18 Time of Evaluation: 10:10 - Subjective Subjective: Comfortable in bed, no diarrhea, no nausea, no abdominal pain. Objective - Vital Signs/Intake and Output Vital Signs (last 24 hours): Temp Pulse Resp BP Pulse Ox 98 F 79 20 105/55 L 98 05/07/18 06:00 05/07/18 06:00 05/07/18 06:00 05/07/18 06:00 05/07/18 06:00 - Medications Medications: Current Medications Acetaminophen (Tylenol 325mg Tab) 650 mg PO Q6 PRN PRN Reason: Fever >100.4 F Last Admin: 04/13/18 05:56 Dose: 650 mg Alprazolam (Xanax) 0.25 mg PO TID PRN; Protocol PRN Reason: Anxiety Last Admin: 04/30/18 15:05 Dose: 0.25 mg Benzonatate (Tessalon Perles) 100 mg PO TID PRN PRN Reason: Cough Last Admin: 05/05/18 10:57 Dose: 100 mg Cyclobenzaprine HCl (Flexeril) 5 mg PO TID [facility] Last Admin: 05/06/18 18:45 Dose: 5 mg Darbepoetin Fletcher (Aranesp) 200 mcg IVP QWK [facility] Last Admin: 04/30/18 09:36 Dose: 200 mcg Fluoxetine HCl (Prozac) 40 mg PO DAILY [facility] Last Admin: 05/06/18 10:12 Dose: 40 mg Heparin Sodium (Porcine) (Heparin) 5,000 units SC Q8 [facility]; Protocol Last Admin: 05/07/18 06:39 Dose: 5,000 units Heparin Sodium (Porcine) (Heparin) 2,000 units IVP F [facility]; Protocol Last Admin: 05/04/18 10:18 Dose: 2,000 units Iron Sucrose 100 mg/ Sodium (Chloride) 105 mls @ 210 mls/hr IVPB QWK [facility] Stop: 05/18/18 10:29 Last Admin: 05/04/18 12:59 Dose: 210 mls/hr Midodrine (Proamatine) 10 mg PO MWF [facility] Last Admin: 05/04/18 08:14 Dose: 10 mg Multi-Ingredient Ointment (Hydrophor Oint) 0 gm TOP Q12 [facility] Last Admin: 05/06/18 22:09 Dose: 1 appl Pantoprazole Sodium (Protonix Ec Tab) 40 mg PO 0600,1600 [facility] Last Admin: 05/07/18 06:39 Dose: 40 mg Spironolactone (Aldactone) 50 mg PO DAILY [facility] Stop: 05/25/18 10:01 Last Admin: 05/06/18 10:13 Dose: 50 mg Vancomycin HCl (Vancocin 25 Mg/Ml (Oral Use)) 250 mg PO QID [facility]; Protocol Last Admin: 05/06/18 22:11 Dose: 250 mg Vitamin B Complex/Vit C/Folic Acid (Nephro-Bhupinder) 1 tab PO 0800 [facility] Last Admin: 05/07/18 08:13 Dose: 1 tab Zolpidem Tartrate (Ambien) 10 mg PO HS [facility]; Protocol Last Admin: 05/06/18 22:14 Dose: 10 mg - Labs Labs: 05/07/18 10:00 05/07/18 10:00 PT 13.2 SECONDS (9.4-12.5) H 04/03/18 15:44 INR 1.15 04/03/18 15:44 APTT 30.7 Seconds (25.1-36.5) 04/03/18 15:44 - Constitutional Appears: Chronically Ill - Head Exam Head Exam: NORMAL INSPECTION - Respiratory Exam Respiratory Exam: Decreased Breath Sounds - Cardiovascular Exam Cardiovascular Exam: +S1, +S2 - GI/Abdominal Exam GI & Abdominal Exam: Soft. absent: Tenderness Assessment and Plan - Assessment and Plan (Free Text) Plan: Assessment S/P C. diff. colitis S/P treatment of Influenza A infection S/P UTI with Klebsiella chronic lymphedema of lower extremities without evidence of cellulitis morbid obesity with BMI 52 chronic renal failure on dialysis R/O peripheral vascular disease Plan completed 14 day course of PO Vancomycin continue to monitor clinically off antibiotics since she is at risk for nosocomial infections
[2018-05-09] MEDS: Pantoprazole 40 mg EC Tab PO SCH (05:55)
--- NOTE | 2018-05-09 06:59 | CP.PCM.PN ---
<Robina Garrett - Last Filed: 05/09/18 21:50> Subjective - Date & Time of Evaluation Date of Evaluation: 05/09/18 Time of Evaluation: 17:21 - Subjective Subjective: Robina Garrett, PGY-1 Medicine Progress Note for Dr. Ojeda: Pt was seen and examined this AM at bedside. Pt is scheduled for dialysis today. She denies any bouts of diarrhea yesterday and states that her stools are now well formed. She states that she was able to sleep through the night and had no acute events. She also states that she is tolerating her diet and is not having any abdominal pain. She denies fevers, chills, cp, sob, cough, abd pain, n/v, c/d, or dysuria. She continues to work with PT, and is still awaiting JENNA placement. Objective - Vital Signs/Intake and Output Vital Signs (last 24 hours): Temp Pulse Resp BP Pulse Ox 98 F 84 18 109/44 L 97 05/08/18 23:23 05/08/18 23:23 05/08/18 23:23 05/08/18 23:23 05/08/18 23:23 - Medications Medications: Current Medications Acetaminophen (Tylenol 325mg Tab) 650 mg PO Q6 PRN PRN Reason: Fever >100.4 F Last Admin: 04/13/18 05:56 Dose: 650 mg Alprazolam (Xanax) 0.25 mg PO TID PRN; Protocol PRN Reason: Anxiety Last Admin: 04/30/18 15:05 Dose: 0.25 mg Cyclobenzaprine HCl (Flexeril) 5 mg PO TID [facility] Last Admin: 05/08/18 17:35 Dose: 5 mg Darbepoetin Fletcher (Aranesp) 200 mcg IVP QWK [facility] Last Admin: 04/30/18 09:36 Dose: 200 mcg Ergocalciferol (Drisdol 50,000 Intl Units Cap) 1 cap PO Q7D [facility] Stop: 06/26/18 13:01 Last Admin: 05/08/18 13:31 Dose: 1 cap Fluoxetine HCl (Prozac) 40 mg PO DAILY [facility] Last Admin: 05/08/18 09:21 Dose: 40 mg Heparin Sodium (Porcine) (Heparin) 5,000 units SC Q8 [facility]; Protocol Last Admin: 05/08/18 23:03 Dose: 5,000 units Heparin Sodium (Porcine) (Heparin) 2,000 units [place]P [facility] Last Admin: 05/04/18 10:18 Dose: 2,000 units Iron Sucrose 100 mg/ Sodium (Chloride) 105 mls @ 210 mls/hr IVPB QWK [facility] Stop: 05/18/18 10:29 Last Admin: 05/04/18 12:59 Dose: 210 mls/hr Midodrine (Proamatine) 10 mg PO [facility] [place] Admin: 05/07/18 13:45 Dose: 10 mg Multi-Ingredient Ointment (Hydrophor Oint) 0 gm TOP Q12 [facility] Last Admin: 05/08/18 23:06 Dose: 1 appl Pantoprazole Sodium (Protonix Ec Tab) 40 mg PO 0600,1600 [facility] Last Admin: 05/08/18 15:20 Dose: 40 mg Spironolactone (Aldactone) 50 mg PO DAILY [facility] Stop: 05/25/18 10:01 Last Admin: 05/08/18 09:22 Dose: 50 mg Vitamin B Complex/Vit C/Folic Acid (Nephro-Bhupinder) 1 tab PO 0800 [facility] Last Admin: 05/08/18 09:22 Dose: 1 tab Zolpidem Tartrate (Ambien) 10 mg PO [facility]; Protocol Last Admin: 05/08/18 23:03 Dose: 10 mg - Labs Labs: 05/07/18 10:00 05/07/18 10:00 PT 13.2 SECONDS (9.4-12.5) H 04/03/18 15:44 INR 1.15 04/03/18 15:44 APTT 30.7 Seconds (25.1-36.5) 04/03/18 15:44 - Constitutional Appears: Non-toxic, No Acute Distress - Head Exam Head Exam: ATRAUMATIC, NORMAL INSPECTION, NORMOCEPHALIC - Eye Exam Eye Exam: EOMI, Normal appearance, PERRL - Respiratory Exam Respiratory Exam: Clear to Ausculation Bilateral, NORMAL BREATHING PATTERN. absent: Accessory Muscle Use, Rales, Rhonchi, Wheezes, Respiratory Distress, Stridor - Cardiovascular Exam Cardiovascular Exam: RRR, +S1, +S2. absent: Gallop, Rubs - GI/Abdominal Exam GI & Abdominal Exam: Soft, Normal Bowel Sounds. absent: Firm, Guarding, Rigid, Tenderness - Extremities Exam Extremities Exam: Normal Capillary Refill, Pedal Edema (3+ b/l pitting edema). absent: Calf Tenderness, Tenderness - Back Exam Back Exam: NORMAL INSPECTION. absent: CVA tenderness (L), CVA tenderness (R) - Neurological Exam Neurological Exam: Alert, Awake, Oriented x3 - Psychiatric Exam Psychiatric exam: Normal Affect, Normal Mood - Skin Skin Exam: Dry, Normal Color, Warm Assessment and Plan - Assessment and Plan (Free Text) Assessment: Pt is a 52 yo F with past medical history liver failure, morbid obesity, and EtOH abuse presents to [facility] [place] for worsening weakness and admitted for management of anemia and FELIPE with metabolic acidosis. Focusing on outpatient HD placement and PT at this time. Pt is awaiting placement for JENNA. Plan: 1) C. Diff - Resolved - C. diff antigen and toxin positive - Vanc d/nick, pt has improved symptomatically - Leukocytosis - resolved, WBC now wnl - contact precautions d/nick 2) Depression - Psych on consult, Dr. Ramos - continue xanax prn, prozac and ambien 3) Acute renal failure - Improved - On HD MWF - Had HD today - Working with pillowcase cutter for outpatient HD setup - Found HD placement, awaiting JENNA placement - Will get blood work weekly - Renal US is unremarkable - Strict I's and O's - Nephrology on consult, Dr. Salmeron, recs appreciated - Continue Aldactone, midodrine 4) Chronic lymphedema of B/L legs - Improving - Pt states improvement after multiple HD sessions - podiatry on consult, no further recommendations, local wound care for now - not currently draining/weeping - repeat ext US shows possible right SFA occlusive disease, limited study due to artifact - wound culture grew Enterobacter Cloacae, E. faecalis - superficial bacteria colonizers - PT recommends JENNA, awaiting placement 5) Microcytic anemia - s/p total 11 units pRBCs, 2 FFPs - endoscopy showed 3 non bleeding gastric ulcers, largest one 8mm - oral iron started - Iron studies shows likely iron deficiency - Head CT unremarkable - CTAP shows adenopathy of the hepatic gastric ligament - GI on consult, Dr. Melo - recs appreciated 6) Fever - resolved -afebrile, no WBC -positive flu type A, completed course of tamiflu -completed course of merrem for UTI with klebsiella -CXR showed moderate cardiomegaly, vascular congestion -blood culture shows no growth after 5 days 7) Elevated BNP -BNP 34858 on admission -Echo showed EF of 68%, mild TR/MR, mild pulm HTN, borderline LVH PPX/Diet -protonix, heparin -renal, fiber diet Dispo: Awaiting JENNA placement Patient seen and case discussed with attending, Dr. Rusty Garrett, PGY-1 <Sagrario Ojeda - Last Filed: 05/12/18 13:44> Objective - Vital Signs/Intake and Output Vital Signs (last 24 hours): Temp Pulse Resp BP Pulse Ox 98.3 F 82 18 106/54 L 98 05/11/18 14:00 05/11/18 14:00 05/11/18 14:00 05/11/18 14:00 05/11/18 14:00 - Labs Labs: 05/09/18 08:30 05/09/18 08:30 PT 13.2 SECONDS (9.4-12.5) H 04/03/18 15:44 INR 1.15 04/03/18 15:44 APTT 30.7 Seconds (25.1-36.5) 04/03/18 15:44 Attending/Attestation - Attestation I have personally seen and examined this patient.: Yes I have fully participated in the care of the patient.: Yes I have reviewed all pertinent clinical information, including history, physical exam and plan: Yes Notes (Text): 05/12/18 13:44 Medical record note made by the resident after discussion with my direction and input after the patient was personally seen and examined by me. I have reviewed the chart and agree that the record accurately reflects by personal performance of the history, physical exam, data review, and medical decision-making, in the course for the patient. I have also personally directed the plan of care
[2018-05-09 08:59] LABS: HEMOGLOBIN 8.9 g/dL (12.0-16.0); MEAN CELL VOLUME 90.6 fl (80.0-105.0); MEAN CORPUSCULAR HEMOGLOBIN 27.9 pg (25.0-35.0); MEAN CORPUSCULAR HGB CONC 30.8 g/dl (31.0-37.0); MEAN PLATELET VOLUME 8.3 fl (7.0-11.0); RBC 3.19 10^6/uL (3.5-6.1); RED CELL DISTRIBUTION WIDTH 20.5 % (11.5-14.5); WHITE BLOOD COUNT 6.3 10^3/uL (4.5-11.0)
[2018-05-09 09:25] LABS: CALCIUM 7.9 mg/dL (8.4-10.5)
[2018-05-09] MEDS: Multivitamin Vitamin B Complex (Nephro-Vite) Tab PO SCH (12:37)
[2018-05-09] MEDS: Petrolatum-Mineral Oil Oint (100gm) TOP SCH ×2 (12:37→21:32)
--- NOTE | 2018-05-09 16:34 | CP.PCM.PN ---
Subjective - Date & Time of Evaluation Date of Evaluation: 05/09/18 Time of Evaluation: 16:34 - Subjective Subjective: Nephrology Consultation Note: Assessment: stable oligoanuric Acute Kidney Injury (N17.9) likely due to ATN, pre-renal state, intrasvasc hypovolemia, impaired renal perfusion, HD 04/05/18: first session. probably ESRD anasarca severe symptomatic anemia due to GI bleed with gastric ulcers mild hyperkalemia and HAGMA, hyperphos hx of cirrhosis and etoh intra-ab lymphadenopathy morbid obesity acute influenza C diff colitis Plan HD tolerated well so far, on MWF schedule. 24 hr crcl: 6 and volume 200 mL. no evidence of renal recovery yet. probably ESRD Maintain hemodynamics stable. Avoid hypotension. Patient not on ACEI/ARB due to recent FELIPE. added midodrine pre HD Monitor Input/Output, daily weights and renal function with basic metabolic panel held phos binders due to diarrhoea PRBC as needed. s/p 1 gram IV iron, now on weekly aranesp/IV iron GI consult, pt on PPI work up for FELIPE and anemia as ordered. GN work up neg hence will defer kidney biopsy. also pt with liver disease and morbidly obese. started weekly vit d consider further work up for ascites. started on aldactone 50 mg/d to reduce portal HTN on antibiotics for c.diff Dose meds/antibiotics for reduced GFR. Avoid fleets enema/magnesium based laxatives. Avoid nephrotoxins/NSAIDs/ iodinated contrast (unless needed emergently) Glycemic control Further work up/management as per primary team she is arranged for outpt HD. Thanks for allowing me to participate in care of your patient. Will follow patient with you. Please call if any Qs. had d/w team Dr Kenji Salmeron Office: [phone] Chief Complaint; fatigue Reason for consult: Acute Kidney Injury HPI: Pt is a 52 F with hx of alcoholism in past, cirrhosis (pt states got better on its own in past) but no regular follow up with PMD presented with complaints of fatigue and tiredness for last few days, found to have severe anemia and FELIPE Denies OTC/herbal meds but NSAIDs as alleve for last few days No recent iodinated contrast exposure. Noted obvious episodes of low BP. reports chronic leg swelling but more now denies smoking or etoh now ROS: Cardiovascular: No chest pain. Pulmonary: no shortness of breath no cough Gastrointestinal: denies abdominal pain No nausea. No vomiting. diarrhoea resolved. Genitourinary: not much UOP All other negative except as mentioned in HPI Physical Examination: seen on HD General Appearance: Comfortable, in no acute respiratory distress, co-operative . morbid obese Vitals reviewed and noted as below Head; Atraumatic, normocephalic ENT: no ulcers no thrush. Tongue is midline. Oropharynx: no rash or ulcers. EYES: Pupils are equal, round and reactive to light accommodation. Eye muscles and extraocular movement intact. Sclera is anicteric. Neck; supple no lymphadenopathy, no thyromegaly or bruit Lungs: Normal respiratory rate/effort. Breath sounds bilateral clear Heart: Normal rate. s1s2 normal. No rub or gallop. Extremities: 1-2+ edema. Neurological: Patient is alert, awake and oriented to person, place and time. No focal deficit. Strength bilateral appropriate and equal Skin: Warm and dry. Normal turgor. spider angioma rash upper chest. Palpitation: Normal elasticity for age Abdomen: Abdomen is soft. Bowel sounds +. There is no abdominal tenderness, no guarding/rigidity no organomegaly. limited due to obesity and abd wall edema Psych: normal insight and flat affect/mood MSK: no joint tenderness or swelling. Digits and nails normal, no deformity : kidney or bladder not palpable. has access as permacath Labs/imaging reviewed. Past medical history, past surgical history, family history, social history, allergy reviewed and noted as below Family hx: no hx of CKD. Rest non-contributory fena 0.3% intra-ab lymphadenopathy Objective - Vital Signs/Intake and Output Vital Signs (last 24 hours): Temp Pulse Resp BP Pulse Ox 98.6 F 85 18 96/45 L 94 L 05/09/18 14:00 05/09/18 14:00 05/09/18 14:00 05/09/18 14:00 05/09/18 14:00 - Medications Medications: Current Medications Acetaminophen (Tylenol 325mg Tab) 650 mg PO Q6 PRN PRN Reason: Fever >100.4 F Last Admin: 04/13/18 05:56 Dose: 650 mg Alprazolam (Xanax) 0.25 mg PO TID PRN; Protocol PRN Reason: Anxiety Last Admin: 04/30/18 15:05 Dose: 0.25 mg Cyclobenzaprine HCl (Flexeril) 5 mg PO TID [facility] Last Admin: 05/09/18 14:01 Dose: 5 mg Darbepoetin Fletcher (Aranesp) 200 mcg IVP QWK [facility] Last Admin: 04/30/18 09:36 Dose: 200 mcg Ergocalciferol (Drisdol 50,000 Intl Units Cap) 1 cap PO Q7D [facility] Stop: 06/26/18 13:01 Last Admin: 05/08/18 13:31 Dose: 1 cap Famotidine (Pepcid) 40 mg PO [facility] Fluoxetine HCl (Prozac) 40 mg PO DAILY [facility] Last Admin: 05/09/18 12:35 Dose: 40 mg Heparin Sodium (Porcine) (Heparin) 5,000 units SC Q8 [facility]; Protocol Last Admin: 05/09/18 14:01 Dose: 5,000 units Heparin Sodium (Porcine) (Heparin) 2,000 units IVP MWF [facility]; Protocol Last Admin: 05/09/18 12:36 Dose: Not Given Iron Sucrose 100 mg/ Sodium (Chloride) 105 mls @ 210 mls/hr IVPB QWK [facility] Stop: 05/18/18 10:29 Last Admin: 05/04/18 12:59 Dose: 210 mls/hr Midodrine (Proamatine) 10 mg PO MWF [facility] Last Admin: 05/09/18 09:04 Dose: 10 mg Multi-Ingredient Ointment (Hydrophor Oint) 0 gm TOP Q12 [facility] Last Admin: 05/09/18 12:37 Dose: 1 appl Spironolactone (Aldactone) 50 mg PO DAILY [facility] Stop: 05/25/18 10:01 Last Admin: 05/09/18 12:37 Dose: 50 mg Vitamin B Complex/Vit C/Folic Acid (Nephro-Bhupinder) 1 tab PO 0800 [facility] Last Admin: 05/09/18 12:37 Dose: Not Given Zolpidem Tartrate (Ambien) 10 mg PO [facility]; Protocol Last Admin: 05/08/18 23:03 Dose: 10 mg - Labs Labs: 05/09/18 08:30 05/09/18 08:30 PT 13.2 SECONDS (9.4-12.5) H 04/03/18 15:44 INR 1.15 04/03/18 15:44 APTT 30.7 Seconds (25.1-36.5) 04/03/18 15:44
--- NOTE | 2018-05-09 16:41 | CP.PCM.PN ---
Subjective - Date & Time of Evaluation Date of Evaluation: 05/09/18 Time of Evaluation: 09:00 - Subjective Subjective: Comfortable in bed, no fevers, not in distress. Objective - Vital Signs/Intake and Output Vital Signs (last 24 hours): Temp Pulse Resp BP Pulse Ox 98.3 F 87 20 120/58 L 98 05/07/18 23:02 05/07/18 23:02 05/07/18 23:02 05/07/18 23:02 05/07/18 23:02 Intake and Output: 05/08/18 05/08/18 06:59 18:59 Output Total 240 Balance -240 - Medications Medications: Current Medications Acetaminophen (Tylenol 325mg Tab) 650 mg PO Q6 PRN PRN Reason: Fever >100.4 F Last Admin: 04/13/18 05:56 Dose: 650 mg Alprazolam (Xanax) 0.25 mg PO TID PRN; Protocol PRN Reason: Anxiety Last Admin: 04/30/18 15:05 Dose: 0.25 mg Benzonatate (Tessalon Perles) 100 mg PO TID PRN PRN Reason: Cough Last Admin: 05/05/18 10:57 Dose: 100 mg Cyclobenzaprine HCl (Flexeril) 5 mg PO TID [facility] Last Admin: 05/08/18 13:31 Dose: 5 mg Darbepoetin Fletcher (Aranesp) 200 mcg IVP QWK [facility] Last Admin: 04/30/18 09:36 Dose: 200 mcg Ergocalciferol (Drisdol 50,000 Intl Units Cap) 1 cap PO Q7D [facility] Stop: 06/26/18 13:01 Last Admin: 05/08/18 13:31 Dose: 1 cap Fluoxetine HCl (Prozac) 40 mg PO DAILY [facility] Last Admin: 05/08/18 09:21 Dose: 40 mg Heparin Sodium (Porcine) (Heparin) 5,000 units SC Q8 [facility]; Protocol Last Admin: 05/08/18 13:31 Dose: 5,000 units Heparin Sodium (Porcine) (Heparin) 2,000 units IVP MWF [facility]; Protocol Last Admin: 05/04/18 10:18 Dose: 2,000 units Iron Sucrose 100 mg/ Sodium (Chloride) 105 mls @ 210 mls/hr IVPB QWK [facility] Stop: 05/18/18 10:29 Last Admin: 05/04/18 12:59 Dose: 210 mls/hr Midodrine (Proamatine) 10 mg PO MWF [facility] Last Admin: 05/07/18 13:45 Dose: 10 mg Multi-Ingredient Ointment (Hydrophor Oint) 0 gm TOP Q12 [facility] Last Admin: 05/08/18 09:24 Dose: 1 appl Pantoprazole Sodium (Protonix Ec Tab) 40 mg PO 0600,1600 [facility] Last Admin: 05/08/18 06:18 Dose: 40 mg Spironolactone (Aldactone) 50 mg PO DAILY [facility] Stop: 05/25/18 10:01 Last Admin: 05/08/18 09:22 Dose: 50 mg Vitamin B Complex/Vit C/Folic Acid (Nephro-Bhupinder) 1 tab PO 0800 [facility] Last Admin: 05/08/18 09:22 Dose: 1 tab Zolpidem Tartrate (Ambien) 10 mg PO [facility]; Protocol Last Admin: 05/07/18 21:53 Dose: 10 mg - Labs Labs: 05/07/18 10:00 05/07/18 10:00 PT 13.2 SECONDS (9.4-12.5) H 04/03/18 15:44 INR 1.15 04/03/18 15:44 APTT 30.7 Seconds (25.1-36.5) 04/03/18 15:44 - Constitutional Appears: Chronically Ill - Head Exam Head Exam: NORMAL INSPECTION - Respiratory Exam Respiratory Exam: Decreased Breath Sounds - Cardiovascular Exam Cardiovascular Exam: +S1, +S2 - GI/Abdominal Exam GI & Abdominal Exam: Soft. absent: Tenderness Assessment and Plan - Assessment and Plan (Free Text) Plan: Assessment S/P C. diff. colitis S/P treatment of Influenza A infection S/P UTI with Klebsiella chronic lymphedema of lower extremities without evidence of cellulitis morbid obesity with BMI 52 chronic renal failure on dialysis R/O peripheral vascular disease Plan completed 14 day course of PO Vancomycin continue to monitor clinically off antibiotics since she is at risk for hospital-acquired infections
--- NOTE | 2018-05-10 06:25 | CP.PCM.PN ---
<Robina Garrett - Last Filed: 05/10/18 21:21> Subjective - Date & Time of Evaluation Date of Evaluation: 05/10/18 Time of Evaluation: 10:13 - Subjective Subjective: Robina Garrett, PGY-1 Medicine Progress Note for Dr. Ojeda: Pt was seen and examined this AM at bedside. Pt is scheduled for dialysis tomorrow. She states that yesterday she was unable to participate with PT for therapy due to lightheadedness s/p dialysis. She denies any bouts of diarrhea yesterday and states that her stools are now well formed. She states that she was able to sleep through the night and had no acute events. She also states that she is tolerating her diet and is not having any abdominal pain. She denies fevers, chills, cp, sob, cough, abd pain, n/v, c/d, or dysuria. She continues to work with PT, and is still awaiting JENNA placement. Objective - Vital Signs/Intake and Output Vital Signs (last 24 hours): Temp Pulse Resp BP Pulse Ox 99 F 83 20 102/47 L 96 05/09/18 23:30 05/09/18 23:30 05/09/18 23:30 05/09/18 23:30 05/09/18 23:30 Intake and Output: 05/09/18 05/10/18 18:59 06:59 Intake Total 0 Balance 0 - Medications Medications: Current Medications Acetaminophen (Tylenol 325mg Tab) 650 mg PO Q6 PRN PRN Reason: Fever >100.4 F Last Admin: 04/13/18 05:56 Dose: 650 mg Alprazolam (Xanax) 0.25 mg PO TID PRN; Protocol PRN Reason: Anxiety Last Admin: 05/09/18 19:00 Dose: 0.25 mg Cyclobenzaprine HCl (Flexeril) 5 mg PO TID [facility] Last Admin: 05/09/18 17:29 Dose: 5 mg Darbepoetin Fletcher (Aranesp) 200 mcg IVP QWK [facility] Last Admin: 04/30/18 09:36 Dose: 200 mcg Ergocalciferol (Drisdol 50,000 Intl Units Cap) 1 cap PO Q7D [facility] Stop: 06/26/18 13:01 Last Admin: 05/08/18 13:31 Dose: 1 cap Famotidine (Pepcid) [address] [facility] Last Admin: 05/09/18 21:31 Dose: 40 mg Fluoxetine HCl (Prozac) 40 mg PO DAILY [facility] Last Admin: 05/09/18 12:35 Dose: 40 mg Heparin Sodium (Porcine) (Heparin) 5,000 units SC Q8 [facility]; Protocol Last Admin: 05/10/18 06:00 Dose: 5,000 units Heparin Sodium (Porcine) (Heparin) 2,000 [facility]; Protocol Last Admin: 05/09/18 12:36 Dose: Not Given Iron Sucrose 100 mg/ Sodium (Chloride) 105 mls @ 210 mls/hr IVPB QWK [facility] Stop: 05/18/18 10:29 Last Admin: 05/04/18 12:59 Dose: 210 mls/hr Midodrine (Proamatine) 10 mg PO [facility] Last Admin: 05/09/18 09:04 Dose: 10 mg Multi-Ingredient Ointment (Hydrophor Oint) 0 gm TOP Q12 [facility] Last Admin: 05/09/18 21:32 Dose: 1 appl Spironolactone (Aldactone) 50 mg PO DAILY [facility] Stop: 05/25/18 10:01 Last Admin: 05/09/18 12:37 Dose: 50 mg Vitamin B Complex/Vit C/Folic Acid (Nephro-Bhupinder) 1 tab PO 0800 [facility] Last Admin: 05/09/18 12:37 Dose: Not Given Zolpidem Tartrate (Ambien) [address] [facility]; Protocol Last Admin: 05/09/18 21:35 Dose: 10 mg - Labs Labs: 05/09/18 08:30 05/09/18 08:30 PT 13.2 SECONDS (9.4-12.5) H 04/03/18 15:44 INR 1.15 04/03/18 15:44 APTT 30.7 Seconds (25.1-36.5) 04/03/18 15:44 - Constitutional Appears: Non-toxic, No Acute Distress - Head Exam Head Exam: ATRAUMATIC, NORMAL INSPECTION, NORMOCEPHALIC - Eye Exam Eye Exam: EOMI, Normal appearance, PERRL - Respiratory Exam Respiratory Exam: Clear to Ausculation Bilateral, NORMAL BREATHING PATTERN. absent: Accessory Muscle Use, Rales, Rhonchi, Wheezes, Respiratory Distress, Stridor - Cardiovascular Exam Cardiovascular Exam: RRR, +S1, +S2. absent: Gallop, Rubs - GI/Abdominal Exam GI & Abdominal Exam: Soft, Normal Bowel Sounds. absent: Firm, Guarding, Rigid, Tenderness - Extremities Exam Extremities Exam: Pedal Edema (3+ b/l pitting edema). absent: Calf Tenderness, Tenderness - Back Exam Back Exam: NORMAL INSPECTION. absent: CVA tenderness (L), CVA tenderness (R) - Neurological Exam Neurological Exam: Alert, Awake, Oriented x3 - Psychiatric Exam Psychiatric exam: Normal Affect, Normal Mood - Skin Skin Exam: Dry, Normal Color, Warm Assessment and Plan - Assessment and Plan (Free Text) Assessment: Pt is a 52 yo F with past medical history liver failure, morbid obesity, and EtOH abuse presents to [facility] [place] for worsening weakness and admitted for management of anemia and FELIPE with metabolic acidosis. Focusing on outpatient HD placement and PT at this time. Pt is awaiting placement for JENNA. Plan: 1) C. Diff - Resolved - C. diff antigen and toxin positive - Vanc d/nick, pt has improved symptomatically - Leukocytosis - resolved, WBC now wnl - contact precautions d/nick 2) Depression - Psych on consult, Dr. Ramos - continue xanax prn, prozac and ambien 3) Acute renal failure - On HD MWF - Had HD today - Working with cyanide case hardener for outpatient HD setup - Found HD placement, awaiting JENNA placement - Will get blood work weekly - Renal US is unremarkable - Strict I's and O's - Nephrology on consult, Dr. Salmeron, recs appreciated - Per Nephro - Will reassess for AV fistula in 3-6 weeks - Continue Aldactone, midodrine 4) Chronic lymphedema of B/L legs - Improving - Pt states improvement after multiple HD sessions - podiatry on consult, no further recommendations, local wound care for now - not currently draining/weeping - repeat ext US shows possible right SFA occlusive disease, limited study due to artifact - wound culture grew Enterobacter Cloacae, E. faecalis - superficial bacteria colonizers - PT recommends JENNA, awaiting placement 5) Microcytic anemia - s/p total 11 units pRBCs, 2 FFPs - endoscopy showed 3 non bleeding gastric ulcers, largest one 8mm - oral iron started - Iron studies shows likely iron deficiency - Head CT unremarkable - CTAP shows adenopathy of the hepatic gastric ligament - GI on consult, Dr. Melo - recs appreciated 6) Fever - resolved -afebrile, no WBC -positive flu type A, completed course of tamiflu -completed course of merrem for UTI with klebsiella -CXR showed moderate cardiomegaly, vascular congestion -blood culture shows no growth after 5 days 7) Elevated BNP -BNP 56793 on admission -Echo showed EF of 68%, mild TR/MR, mild pulm HTN, borderline LVH PPX/Diet -protonix, heparin -renal, fiber diet Dispo: Awaiting JENNA placement Patient seen and case discussed with attending, Dr. Rusty Garrett, PGY-1 <Sagrario Ojeda - Last Filed: 05/12/18 13:44> Objective - Vital Signs/Intake and Output Vital Signs (last 24 hours): Temp Pulse Resp BP Pulse Ox 98.3 F 82 18 106/54 L 98 05/11/18 14:00 05/11/18 14:00 05/11/18 14:00 05/11/18 14:00 05/11/18 14:00 - Labs Labs: 05/09/18 08:30 05/09/18 08:30 PT 13.2 SECONDS (9.4-12.5) H 04/03/18 15:44 INR 1.15 04/03/18 15:44 APTT 30.7 Seconds (25.1-36.5) 04/03/18 15:44 Attending/Attestation - Attestation I have personally seen and examined this patient.: Yes I have fully participated in the care of the patient.: Yes I have reviewed all pertinent clinical information, including history, physical exam and plan: Yes Notes (Text): 05/12/18 13:44 Medical record note made by the resident after discussion with my direction and input after the patient was personally seen and examined by me. I have reviewed the chart and agree that the record accurately reflects by personal performance of the history, physical exam, data review, and medical decision-making, in the course for the patient. I have also personally directed the plan of care
[2018-05-10] MEDS: Multivitamin Vitamin B Complex (Nephro-Vite) Tab PO SCH (09:48)
[2018-05-10] MEDS: Petrolatum-Mineral Oil Oint (100gm) TOP SCH (09:49)
--- NOTE | 2018-05-10 14:24 | CP.PCM.PN ---
Subjective - Date & Time of Evaluation Date of Evaluation: 05/10/18 Time of Evaluation: 14:23 - Subjective Subjective: Nephrology Consultation Note: Assessment: stable oligoanuric Acute Kidney Injury (N17.9) likely due to ATN, pre-renal state, intrasvasc hypovolemia, impaired renal perfusion, HD 04/05/18: first session. probably ESRD anasarca severe symptomatic anemia due to GI bleed with gastric ulcers mild hyperkalemia and HAGMA, hyperphos hx of cirrhosis and etoh intra-ab lymphadenopathy morbid obesity acute influenza C diff colitis Plan HD tolerated well so far, on MWF schedule. 04/20/18: 24 hr crcl: 6 and volume 200 mL. no evidence of renal recovery yet. probably ESRD. will repeat 24 hr crcl Maintain hemodynamics stable. Avoid hypotension. Patient not on ACEI/ARB due to recent FELIPE. added midodrine pre HD Monitor Input/Output, daily weights and renal function with basic metabolic panel held phos binders due to diarrhoea PRBC as needed. s/p 1 gram IV iron, now on weekly aranesp/IV iron GI consult, pt on PPI work up for FELIPE and anemia as ordered. GN work up neg hence will defer kidney biopsy. also pt with liver disease and morbidly obese. started weekly vit d consider further work up for ascites. started on aldactone 50 mg/d to reduce portal HTN on antibiotics for c.diff Dose meds/antibiotics for reduced GFR. Avoid fleets enema/magnesium based laxatives. Avoid nephrotoxins/NSAIDs/ iodinated contrast (unless needed emergently) Glycemic control Further work up/management as per primary team she is arranged for outpt HD. Thanks for allowing me to participate in care of your patient. Will follow patient with you. Please call if any Qs. had d/w team Dr Kenji Salmeron Office: [phone] Chief Complaint; fatigue Reason for consult: Acute Kidney Injury HPI: Pt is a 52 F with hx of alcoholism in past, cirrhosis (pt states got better on its own in past) but no regular follow up with PMD presented with complaints of fatigue and tiredness for last few days, found to have severe anemia and FELIPE Denies OTC/herbal meds but NSAIDs as alleve for last few days No recent iodinated contrast exposure. Noted obvious episodes of low BP. reports chronic leg swelling but more now denies smoking or etoh now ROS: Cardiovascular: No chest pain. Pulmonary: no shortness of breath no cough Gastrointestinal: denies abdominal pain No nausea. No vomiting. diarrhoea resolved. Genitourinary: not much UOP All other negative except as mentioned in HPI Physical Examination: General Appearance: Comfortable, in no acute respiratory distress, co-operative . morbid obese Vitals reviewed and noted as below Head; Atraumatic, normocephalic ENT: no ulcers no thrush. Tongue is midline. Oropharynx: no rash or ulcers. EYES: Pupils are equal, round and reactive to light accommodation. Eye muscles and extraocular movement intact. Sclera is anicteric. Neck; supple no lymphadenopathy, no thyromegaly or bruit Lungs: Normal respiratory rate/effort. Breath sounds bilateral clear Heart: Normal rate. s1s2 normal. No rub or gallop. Extremities: 1-2+ edema. Neurological: Patient is alert, awake and oriented to person, place and time. No focal deficit. Strength bilateral appropriate and equal Skin: Warm and dry. Normal turgor. spider angioma rash upper chest. Palpitation: Normal elasticity for age Abdomen: Abdomen is soft. Bowel sounds +. There is no abdominal tenderness, no guarding/rigidity no organomegaly. limited due to obesity and abd wall edema Psych: normal insight and flat affect/mood MSK: no joint tenderness or swelling. Digits and nails normal, no deformity : kidney or bladder not palpable. has access as permacath Labs/imaging reviewed. Past medical history, past surgical history, family history, social history, allergy reviewed and noted as below Family hx: no hx of CKD. Rest non-contributory fena 0.3% intra-ab lymphadenopathy Objective - Vital Signs/Intake and Output Vital Signs (last 24 hours): Temp Pulse Resp BP Pulse Ox 98 F 82 18 109/58 L 93 L 05/10/18 06:00 05/10/18 06:00 05/10/18 06:00 05/10/18 06:00 05/10/18 06:00 Intake and Output: 05/10/18 05/10/18 06:59 18:59 Intake Total 0 Balance 0 - Medications Medications: Current Medications Acetaminophen (Tylenol 325mg Tab) 650 mg PO Q6 PRN PRN Reason: Fever >100.4 F Last Admin: 04/13/18 05:56 Dose: 650 mg Alprazolam (Xanax) 0.25 mg PO TID PRN; Protocol PRN Reason: Anxiety Last Admin: 05/10/18 12:25 Dose: 0.25 mg Cyclobenzaprine HCl (Flexeril) 5 mg PO TID [facility] Last Admin: 05/10/18 13:50 Dose: 5 mg Darbepoetin Fletcher (Aranesp) 200 mcg IVP QWK [facility] Last Admin: 04/30/18 09:36 Dose: 200 mcg Ergocalciferol (Drisdol 50,000 Intl Units Cap) 1 cap PO Q7D [facility] Stop: 06/26/18 13:01 Last Admin: 05/08/18 13:31 Dose: 1 cap Famotidine (Pepcid) 40 mg PO [facility] Last Admin: 05/09/18 21:31 Dose: 40 mg Fluoxetine HCl (Prozac) 40 mg PO DAILY [facility] Last Admin: 05/10/18 09:48 Dose: 40 mg Heparin Sodium (Porcine) (Heparin) 5,000 units SC Q8 [facility]; Protocol Last Admin: 05/10/18 13:50 Dose: 5,000 units Heparin Sodium (Porcine) (Heparin) 2,000 units IVP MWF [facility]; Protocol Last Admin: 05/09/18 12:36 Dose: Not Given Iron Sucrose 100 mg/ Sodium (Chloride) 105 mls @ 210 mls/hr IVPB QWK [facility] Stop: 05/18/18 10:29 Last Admin: 05/04/18 12:59 Dose: 210 mls/hr Midodrine (Proamatine) 10 mg PO MWF [facility] Last Admin: 05/09/18 09:04 Dose: 10 mg Multi-Ingredient Ointment (Hydrophor Oint) 0 gm TOP Q12 [facility] Last Admin: 05/10/18 09:49 Dose: Not Given Spironolactone (Aldactone) 50 mg PO DAILY [facility] Stop: 05/25/18 10:01 Last Admin: 05/10/18 09:47 Dose: 50 mg Vitamin B Complex/Vit C/Folic Acid (Nephro-Bhupinder) 1 tab PO 0800 [facility] Last Admin: 05/10/18 09:48 Dose: 1 tab Zolpidem Tartrate (Ambien) 10 mg PO HS [facility]; Protocol Last Admin: 05/09/18 21:35 Dose: 10 mg - Labs Labs: 05/09/18 08:30 05/09/18 08:30 PT 13.2 SECONDS (9.4-12.5) H 04/03/18 15:44 INR 1.15 04/03/18 15:44 APTT 30.7 Seconds (25.1-36.5) 04/03/18 15:44
--- NOTE | 2018-05-10 14:37 | CP.PCM.PN ---
Subjective - Date & Time of Evaluation Date of Evaluation: 05/10/18 Time of Evaluation: 09:55 - Subjective Subjective: No fevers, not in distress. Objective - Vital Signs/Intake and Output Vital Signs (last 24 hours): Temp Pulse Resp BP Pulse Ox 98.6 F 85 18 96/45 L 94 L 05/09/18 14:00 05/09/18 14:00 05/09/18 14:00 05/09/18 14:00 05/09/18 14:00 - Medications Medications: Current Medications Acetaminophen (Tylenol 325mg Tab) 650 mg PO Q6 PRN PRN Reason: Fever >100.4 F Last Admin: 04/13/18 05:56 Dose: 650 mg Alprazolam (Xanax) 0.25 mg PO TID PRN; Protocol PRN Reason: Anxiety Last Admin: 04/30/18 15:05 Dose: 0.25 mg Cyclobenzaprine HCl (Flexeril) 5 mg PO TID [facility] Last Admin: 05/09/18 14:01 Dose: 5 mg Darbepoetin Fletcher (Aranesp) 200 mcg IVP QWK [facility] Last Admin: 04/30/18 09:36 Dose: 200 mcg Ergocalciferol (Drisdol 50,000 Intl Units Cap) 1 cap PO Q7D [facility] Stop: 06/26/18 13:01 Last Admin: 05/08/18 13:31 Dose: 1 cap Famotidine (Pepcid) 40 mg PO HS [facility] Fluoxetine HCl (Prozac) 40 mg PO DAILY [facility] Last Admin: 05/09/18 12:35 Dose: 40 mg Heparin Sodium (Porcine) (Heparin) 5,000 units SC Q8 [facility]; Protocol Last Admin: 05/09/18 14:01 Dose: 5,000 units Heparin Sodium (Porcine) (Heparin) 2,000 units IVP MWF [facility]; Protocol Last Admin: 05/09/18 12:36 Dose: Not Given Iron Sucrose 100 mg/ Sodium (Chloride) 105 mls @ 210 mls/hr IVPB QWK [facility] Stop: 05/18/18 10:29 Last Admin: 05/04/18 12:59 Dose: 210 mls/hr Midodrine (Proamatine) 10 mg PO MWF [facility] Last Admin: 05/09/18 09:04 Dose: 10 mg Multi-Ingredient Ointment (Hydrophor Oint) 0 gm TOP Q12 [facility] Last Admin: 05/09/18 12:37 Dose: 1 appl Spironolactone (Aldactone) 50 mg PO DAILY [facility] Stop: 05/25/18 10:01 Last Admin: 05/09/18 12:37 Dose: 50 mg Vitamin B Complex/Vit C/Folic Acid (Nephro-Bhupinder) 1 tab PO 0800 [facility] Last Admin: 05/09/18 12:37 Dose: Not Given Zolpidem Tartrate (Ambien) 10 mg PO HS [facility]; Protocol Last Admin: 05/08/18 23:03 Dose: 10 mg - Labs Labs: 05/09/18 08:30 05/09/18 08:30 PT 13.2 SECONDS (9.4-12.5) H 04/03/18 15:44 INR 1.15 04/03/18 15:44 APTT 30.7 Seconds (25.1-36.5) 04/03/18 15:44 - Constitutional Appears: Chronically Ill - Head Exam Head Exam: NORMAL INSPECTION - Respiratory Exam Respiratory Exam: Decreased Breath Sounds - Cardiovascular Exam Cardiovascular Exam: +S1, +S2 - GI/Abdominal Exam GI & Abdominal Exam: Soft. absent: Tenderness Assessment and Plan - Assessment and Plan (Free Text) Plan: Assessment S/P C. diff. colitis S/P treatment of Influenza A infection S/P UTI with Klebsiella chronic lymphedema of lower extremities without evidence of cellulitis morbid obesity with BMI 52 chronic renal failure on dialysis R/O peripheral vascular disease Plan completed 14 day course of PO Vancomycin continue to monitor clinically off antibiotics since she is at risk for healthcare-associated infections
[2018-05-11] MEDS: Multivitamin Vitamin B Complex (Nephro-Vite) Tab PO SCH ×2 (09:26→14:49)
--- NOTE | 2018-05-11 11:41 | CP.PCM.PN ---
Objective - Vital Signs/Intake and Output Vital Signs (last 24 hours): Temp Pulse Resp BP Pulse Ox 98.9 F 87 20 98/44 L 95 05/11/18 06:00 05/11/18 06:00 05/11/18 06:00 05/11/18 06:00 05/11/18 06:00 Intake and Output: 05/11/18 05/11/18 06:59 18:59 Intake Total 420 Balance 420 - Medications Medications: Current Medications Acetaminophen (Tylenol 325mg Tab) 650 mg PO Q6 PRN PRN Reason: Fever >100.4 F Last Admin: 04/13/18 05:56 Dose: 650 mg Alprazolam (Xanax) 0.25 mg PO TID PRN; Protocol PRN Reason: Anxiety Last Admin: 05/10/18 12:25 Dose: 0.25 mg Cyclobenzaprine HCl (Flexeril) 5 mg PO TID [facility] Last Admin: 05/10/18 17:07 Dose: 5 mg Darbepoetin Fletcher (Aranesp) 200 mcg IVP QWK [facility] Last Admin: 04/30/18 09:36 Dose: 200 mcg Ergocalciferol (Drisdol 50,000 Intl Units Cap) 1 cap PO Q7D [facility] Stop: 06/26/18 13:01 Last Admin: 05/08/18 13:31 Dose: 1 cap Famotidine (Pepcid) 40 mg PO HS [facility] Last Admin: 05/10/18 23:04 Dose: 40 mg Fluoxetine HCl (Prozac) 40 mg PO DAILY [facility] Last Admin: 05/10/18 09:48 Dose: 40 mg Heparin Sodium (Porcine) (Heparin) 5,000 units SC Q8 [facility]; Protocol Last Admin: 05/11/18 05:33 Dose: 5,000 units Heparin Sodium (Porcine) (Heparin) 2,000 units IVP MWF [facility]; Protocol Last Admin: 05/09/18 12:36 Dose: Not Given Iron Sucrose 100 mg/ Sodium (Chloride) 105 mls @ 210 mls/hr IVPB QWK [facility] Stop: 05/18/18 10:29 Last Admin: 05/04/18 12:59 Dose: 210 mls/hr Midodrine (Proamatine) 10 mg PO F [facility] Last Admin: 05/09/18 09:04 Dose: 10 mg Multi-Ingredient Ointment (Hydrophor Oint) 0 gm TOP Q12 [facility] Last Admin: 05/10/18 09:49 Dose: Not Given Spironolactone (Aldactone) 50 mg PO DAILY [facility] Stop: 05/25/18 10:01 Last Admin: 05/10/18 09:47 Dose: 50 mg Vitamin B Complex/Vit C/Folic Acid (Nephro-Bhupinder) 1 tab PO 0800 [facility] Last Admin: 05/10/18 09:48 Dose: 1 tab Zolpidem Tartrate (Ambien) 10 mg PO HS [facility]; Protocol Last Admin: 05/10/18 23:04 Dose: 10 mg - Labs Labs: 05/09/18 08:30 05/09/18 08:30 PT 13.2 SECONDS (9.4-12.5) H 04/03/18 15:44 INR 1.15 04/03/18 15:44 APTT 30.7 Seconds (25.1-36.5) 04/03/18 15:44
--- NOTE | 2018-05-11 13:47 | CP.PCM.DIS ---
<Robina Garrett - Last Filed: 05/12/18 01:05> Provider - Provider Date of Admission: 04/03/18 16:52 Attending physician: Sagrario Ojeda MD Consults: 04/25/18 12:44 Physician Consult Routine Comment: Consulting Provider: Rachel Maradiaga Consulting Physician: Rachel Maradiaga Reason for Consult: depressed mood on Trazadone 04/26/18 15:49 Nursing Referral for Wound Care Routine Comment: FREQUENT BOWEL MOVEMENTS CDIFF Physician Instructions: Reason For Exam: MASD, SKIN BREAK TO SKIN FOLDS BUTTOCK AREA 04/29/18 14:02 Nursing Referral for Wound Care Routine Comment: Physician Instructions: Reason For Exam: MASD 04/29/18 20:53 Nursing Referral for Wound Care Routine Comment: Physician Instructions: Reason For Exam: MASD 05/04/18 18:03 Orthopedic Consult Routine Comment: Consulting Provider: Bart Montalvo Consulting Physician: Bart Montalvo Reason for Consult: Burning sensation on right lower extremity 04/03/18 18:05 Gastroenterology Consult Stat Comment: Consulting Provider: Be Melo Consulting Physician: Be Mleo Reason for Consult: ? GI bleed 04/03/18 18:15 Nephrology Consult Routine Comment: Consulting Provider: Kenji Salmeron Consulting Physician: Kenji Salmeron Reason for Consult: renal failure 04/03/18 18:26 Psychiatry Consult Routine Comment: Consulting Provider: Rachel Maradiaga Consulting Physician: Rachel Maradiaga Reason for Consult: severe depression 04/04/18 05:58 Nursing Referral for Wound Care Routine Comment: PRESSURE FROM BED Physician Instructions: HEELS REDDENED Reason For Exam: BILATERAL HEEL DECUBITUS 04/05/18 07:02 Radiology Consult Routine Comment: Consulting Provider: Ramsey Ny Consulting Physician: Ramsey Ny Reason for Consult: Permacath placement for HD 04/06/18 09:44 Podiatry Consult Routine Comment: Consulting Provider: Darline Rice Consulting Physician: Darline Rice Reason for Consult: B/L leg weeping 04/07/18 09:06 Consult [Physician Consult] Routine Comment: review C & S results Consulting Provider: Orion Thompson Consulting Physician: Orion Thompson Reason for Consult: review C & S results 04/09/18 12:40 Hairspring Vibrator [Case Management Referral] Routine Comment: Physician Instructions: Reason For Exam: evaluate for outpatient hemodialysis Reason for Referral: Discharge Planning 04/16/18 17:12 Case Management Referral Routine Comment: Form left in patient's chart, please advise Physician Instructions: Unclear home situation-unsure whether to sign form Reason For Exam: Pt's partner requesting FMLA form signed by doctor Reason for Referral: Hairspring Vibrator Scotty Time Spent in preparation of Discharge (in minutes): 65 Diagnosis - Discharge Diagnosis (1) UTI (urinary tract infection) Status: Acute (2) Anemia Status: Acute (3) Obesity Status: Acute (4) Renal failure Status: Acute Hospital Course - Lab Results Lab Results: Micro Results 04/24/18 00:50 Stool C. difficile Antigen & Toxins A,B - Final 04/13/18 09:25 Blood-Venous Blood Culture - Final NO GROWTH AFTER 5 DAYS 04/13/18 09:25 Blood-Venous Gram Stain - Final TEST NOT PERFORMED 04/13/18 09:15 Blood-Venous Blood Culture - Final NO GROWTH AFTER 5 DAYS 04/13/18 09:15 Blood-Venous Gram Stain - Final TEST NOT PERFORMED 04/13/18 16:46 Urine,Catheterized Urine Culture - Final Klebsiella Ozaenae Yeast Species 04/03/18 18:35 Blood Blood Culture - Final NO GROWTH AFTER 5 DAYS 04/03/18 18:35 Blood Gram Stain - Final TEST NOT PERFORMED 04/03/18 18:30 Blood Blood Culture - Final NO GROWTH AFTER 5 DAYS 04/03/18 18:30 Blood Gram Stain - Final TEST NOT PERFORMED 04/06/18 16:30 Leg - Left Gram Stain - Final 04/06/18 16:30 Leg - Left Wound Culture - Final Enterobacter Cloacae Ssp Cloac Enterococcus Faecalis 04/05/18 20:20 Urine,[place] Urine Culture - Final Escherichia Coli 04/03/18 21:54 Nose MRSA Culture (Admit) - Final MRSA NOT DETECTED 04/03/18 19:20 Urine,Clean Catch Urine Culture - Final 50-100,000 CFU/ML. MULTIPLE SPECIES. SUGGEST REPEAT SPECIMEN. Most Recent Lab Values WBC 6.3 10^3/uL (4.5-11.0) 05/09/18 08:30 RBC 3.19 10^6/uL (3.5-6.1) L 05/09/18 08:30 Hgb 8.9 g/dL (12.0-16.0) L 05/09/18 08:30 Hct 28.9 % (36.0-48.0) L 05/09/18 08:30 MCV 90.6 fl (80.0-105.0) 05/09/18 08:30 MCH 27.9 pg (25.0-35.0) 05/09/18 08:30 MCHC 30.8 g/dl (31.0-37.0) L 05/09/18 08:30 RDW 20.5 % (11.5-14.5) H 05/09/18 08:30 Plt Count 131 10^3/uL (120.0-450.0) 05/09/18 08:30 MPV 8.3 fl (7.0-11.0) 05/09/18 08:30 Gran % 66.0 % (50.0-68.0) 05/04/18 06:20 Lymph % (Auto) 15.2 % (22.0-35.0) L 05/04/18 06:20 Duval % (Auto) 10.5 % (1.0-6.0) H 05/04/18 06:20 Eos % (Auto) 7.9 % (1.5-5.0) H 05/04/18 06:20 Baso % (Auto) 0.4 % (0.0-3.0) 05/04/18 06:20 Gran # 5.09 (1.4-6.5) 05/04/18 06:20 Lymph # (Auto) 1.2 (1.2-3.4) 05/04/18 06:20 [place] # (Auto) 0.8 (0.1-0.6) H 05/04/18 06:20 Eos # (Auto) 0.6 (0.0-0.7) 05/04/18 06:20 Baso # (Auto) 0.03 K/mm3 (0.0-2.0) 05/04/18 06:20 Neutrophils % (Manual) 88 % (50.0-70.0) H 04/12/18 06:00 Lymphocytes % (Manual) 1 % (22.0-35.0) L 04/12/18 06:00 Monocytes % (Manual) 7 % (1.0-6.0) H 04/12/18 06:00 Eosinophils % (Manual) 4 % (0.0-3.0) H 04/12/18 06:00 Platelet Evaluation Low (NORMAL) 04/12/18 06:00 Anisocytosis (manual) 1+ 04/12/18 06:00 Macrocytosis (manual) Slight 04/12/18 06:00 Retic Count 5.63 % (0.5-1.5) H 04/03/18 18:15 Haptoglobin 63.4 mg/dL (30.0-200.0) 04/03/18 19:00 PT 13.2 SECONDS (9.4-12.5) H 04/03/18 15:44 INR 1.15 04/03/18 15:44 APTT 30.7 Seconds (25.1-36.5) 04/03/18 15:44 pCO2 24 mm/Hg (35-45) L 04/04/18 01:30 pO2 164.0 mm/Hg (80-100) H 04/04/18 01:30 HCO3 10.8 mmol/L (21-28) L 04/04/18 01:30 ABG pH 7.26 (7.35-7.45) L 04/04/18 01:30 ABG Total CO2 11.5 mmol.L (22-28) L 04/04/18 01:30 ABG O2 Saturation 98.9 % (95-98) H 04/04/18 01:30 ABG O2 Content 7.2 ML/dl (15-23) L 04/04/18 01:30 ABG Base Excess -15.0 mmol/L (-2.0-3.0) L 04/04/18 01:30 ABG Hemoglobin 5.0 g/dL (11.7-17.4) L 04/04/18 01:30 ABG Carboxyhemoglobin 2.2 % (0.5-1.5) H 04/04/18 01:30 POC ABG HHb (Measured) 1.1 % (0-5) 04/04/18 01:30 ABG Methemoglobin 1.2 % (0.0-3.0) 04/04/18 01:30 ABG O2 Capacity 7.3 mL/dl (16-24) L 04/04/18 01:30 Hgb O2 Saturation 95.5 % (95.0-98.0) 04/04/18 01:30 FiO2 32.0 % 04/04/18 01:30 Sodium 136 mmol/L (132-148) 05/09/18 08:30 Potassium 3.4 mmol/L (3.6-5.0) L 05/09/18 08:30 Chloride 102 mmol/L (98-107) 05/09/18 08:30 Carbon Dioxide 28 mmol/L (21-33) 05/09/18 08:30 Anion Gap 9 (10-20) L 05/09/18 08:30 BUN 23 mg/dL (7-21) H 05/09/18 08:30 Creatinine 3.3 mg/dl (0.7-1.2) H 05/09/18 08:30 Est GFR ( Amer) 18 05/09/18 08:30 Est GFR (Non-Af Amer) 15 05/09/18 08:30 POC Glucose (mg/dL) 70 mg/dL (65-110) 05/09/18 06:55 Random Glucose 98 mg/dL (70-110) 05/09/18 08:30 Calcium 7.9 mg/dL (8.4-10.5) L 05/09/18 08:30 Phosphorus 3.3 mg/dL (2.5-4.5) 05/07/18 10:00 Magnesium 1.9 mg/dL (1.7-2.2) 05/07/18 10:00 Iron 19 ug/dL (45-180) L 04/03/18 18:13 TIBC 338 ug/dL (265-497) 04/03/18 18:13 % Saturation 6 % (20-55) L 04/03/18 18:13 Ferritin 16.1 ng/mL 04/03/18 18:13 Total Bilirubin 1.8 mg/dL (0.2-1.3) H 05/07/18 10:00 AST 39 U/L (14-36) H 05/07/18 10:00 ALT 27 U/L (7-56) 05/07/18 10:00 Alkaline Phosphatase 324 U/L (38-126) H 05/07/18 10:00 Ammonia 39 umol/L (9-33) H 04/03/18 15:44 Lactate Dehydrogenase 518 U/L (333-699) 04/03/18 15:44 Total Creatine Kinase 291 U/L (35-230) H 04/03/18 15:44 CK-MB (CK-2) 5.0 ng/mL (0.0-3.6) H 04/03/18 15:44 CK-MB (CK-2) % 1.7 % (2.5-3.0) L 04/03/18 15:44 Troponin I 0.11 ng/mL 04/03/18 15:44 NT-Pro-B Natriuret Pep 94268 pg/mL (0-450) H 04/03/18 15:44 Total Protein 5.7 g/dL (5.8-8.3) L 05/07/18 10:00 Total Protein (PEP) 4.8 g/dL (6.1-8.1) L 04/07/18 08:30 Albumin 2.0 g/dL (3.0-4.8) L 05/07/18 10:00 Albumin (PEP) 2.1 g/dL (3.8-4.8) L 04/07/18 08:30 Globulin 3.7 gm/dL 05/07/18 10:00 Albumin/Globulin Ratio 0.6 (1.1-1.8) L 05/07/18 10:00 Xvlou-2-Yfwnzyyhn 0.4 g/dL (0.2-0.3) H 04/07/18 08:30 Obrhe-5-Hcgnxzmdj 0.3 g/dL (0.5-0.9) L 04/07/18 08:30 Wqzz-5-Qaurohsz 0.4 g/dL (0.4-0.6) 04/07/18 08:30 Huqp-2-Yqocsauc 0.4 g/dL (0.2-0.5) 04/07/18 08:30 Gamma Globulins 1.3 g/dL (0.8-1.7) 04/07/18 08:30 Abnorm Protein Band 1 TEST NOT PERFORMED 04/07/18 08:30 Abnorm Protein Band 2 TEST NOT PERFORMED 04/07/18 08:30 Abnorm Protein Band 3 TEST NOT PERFORMED 04/07/18 08:30 Vitamin B12 950 pg/mL (239-931) H 04/03/18 19:00 25-OH Vitamin D Total < 12.8 NG/ML (30.0-100.0) L 04/07/18 08:30 Folate 13.3 ng/mL 04/03/18 19:00 Procalcitonin 0.77 NG/ML (0.19-0.49) H 04/13/18 09:15 Free T4 0.91 ng/dL (0.78-2.19) 04/04/18 13:10 Total T3 0.53 ng/mL (0.97-1.69) L 04/04/18 13:10 TSH 3rd Generation 6.37 mIU/mL (0.46-4.68) H 04/03/18 15:44 PTH Intact Whole Molec 321 pg/mL (14-64) H 04/06/18 10:50 Urine Color Light brown (YELLOW) 04/13/18 16:46 Urine Appearance Cloudy (CLEAR) 04/13/18 16:46 Urine pH 5.5 (4.7-8.0) 04/13/18 16:46 Ur Specific [place] 1.025 (1.005-1.035) 04/13/18 16:46 Urine Protein 100 mg/dL (<30 mg/dL) H 04/13/18 16:46 Urine Glucose (UA) Negative mg/dL (NEGATIVE) 04/13/18 16:46 Urine Ketones Trace mg/dL (NEGATIVE) H 04/13/18 16:46 Urine Blood Large (NEGATIVE) H 04/13/18 16:46 Urine Nitrate Positive (NEGATIVE) H 04/13/18 16:46 Urine Bilirubin Moderate (NEGATIVE) H 04/13/18 16:46 Urine Urobilinogen 1.0 E.U./dL (<1 E.U./dL) H 04/13/18 16:46 Ur Leukocyte Esterase Moderate Johnie/uL (NEGATIVE) H 04/13/18 16:46 Urine RBC 25 - 30 /hpf (0-2) H 04/13/18 16:46 Urine WBC Tntc /hpf (0-6) H 04/13/18 16:46 Ur Epithelial Cells 6 - 8 /hpf (0-5) H 04/13/18 16:46 Urine Bacteria Many /hpf (NONE) 04/13/18 16:46 Urine Other Uyeast /hpf 04/13/18 16:46 Ur Random Creatinine 139 mg/dL 04/13/18 16:46 U Random Total Protein 930 mg/g creat (21-161) H 04/07/18 05:00 Ur Random Sodium 55 meq/L 04/13/18 16:46 Ur Random Potassium 29.8 meq/L 04/13/18 16:46 Ur Random Urea Nitrogn 301 mg/dL 04/04/18 06:30 Urine Collection Time 24 HOURS 04/20/18 18:21 Urine Total Volume 200 mL (800-1400) L 04/20/18 18:21 Creatinine Clearance 6.0 ml/min (80-120) L 04/20/18 18:21 Urine Total Volume 38.5 mg/dL 04/07/18 05:00 Microalb/Creat Ratio 245 (<30) H 04/07/18 05:00 Urine Opiates Screen Negative (NEGATIVE) 04/03/18 17:39 Urine Methadone Screen Negative (NEGATIVE) 04/03/18 17:39 Ur Barbiturates Screen Negative (NEGATIVE) 04/03/18 17:39 Ur Phencyclidine Scrn Negative (NEGATIVE) 04/03/18 17:39 Ur Amphetamines Screen Negative (NEGATIVE) 04/03/18 17:39 U Benzodiazepines Scrn Negative (NEGATIVE) 04/03/18 17:39 U Oth Cocaine Metabols Negative (NEGATIVE) 04/03/18 17:39 U Cannabinoids Screen Negative (NEGATIVE) 04/03/18 17:39 Alcohol, Quantitative < 10 mg/dL (0-10) 04/03/18 15:44 OTIS & SPEP Interp See note 04/07/18 08:30 Serum Immunofixation Not detected 04/07/18 08:30 HORACE Screen Negative (Negative) 04/06/18 10:50 HORACE Titer TEST NOT PERFORMED 04/06/18 10:50 HORACE Titer 2 TEST NOT PERFORMED 04/06/18 10:50 HORACE Pattern TEST NOT PERFORMED 04/06/18 10:50 HORACE Pattern 2 TEST NOT PERFORMED 04/06/18 10:50 ANCA Screen Negative (NEGATIVE) 04/06/18 10:50 c-ANCA Titer TNP 04/06/18 10:50 Proteinase 3 (PR3) <1.0 AI (<1.0) 04/06/18 10:50 p-ANCA Titer TNP 04/06/18 10:50 Atypical p-ANCA Titer TNP 04/06/18 10:50 Myeloperoxidase Ab <1.0 AI (<1.0) 04/06/18 10:50 Double Strand DNA Ab 1 IU/mL 04/06/18 10:50 Complement C3 48.0 mg/dL (88.0-165.0) L 04/06/18 10:50 Complement C4 14.0 mg/dL (14.0-44.0) 04/06/18 10:[address] [place] [address]/Lambda Ratio 2.25 (1.29-2.55) 04/07/18 08:[address] [place] Light Chain Anal 437 mg/dL (176-443) 04/07/18 08:30 Lambda Light Chain Anal 194 mg/dL (91-240) 04/07/18 08:30 Hepatitis A IgM Ab Negative (NEGATIVE) 04/04/18 13:10 Hep Bs Antigen Negative (NEGATIVE) 05/04/18 09:30 Hep Bs Antibody Negative (NEGATIVE) 05/04/18 09:30 Hep B Core IgM Ab Negative (NEGATIVE) 05/04/18 09:30 Hepatitis C Antibody Non reactive (Non Reactive) 04/05/18 12:45 Hep C Ab Signal/Cutoff 0.05 (<1.0) 04/05/18 12:45 HIV 1&2 Ag/Ab, 4th Gen Nonreactive (Nonreactive) 04/04/18 13:10 Influenza Typ A,B (EIA) Pos for influenza a (NEGATIVE) H 04/13/18 16:46 Blood Type B NEGATIVE 04/06/18 10:00 Blood Type Confirm B NEGATIVE 04/03/18 18:50 Antibody Screen Negative 04/06/18 10:00 Crossmatch See Detail 04/06/18 10:00 BBK History Checked Patient has bt 04/06/18 10:00 - Hospital Course Hospital Course: Upon Admission: Patient is a 52 yo F with PMH with liver failure, morbid obesity, alcohol abuse and depression [place] [facility] [place] worsening fatigue, weakness, and dark stools. Patient states that she has had diarrhea for the past 3 days that have been black and tarry. Patient states that she has had a lot of personal issues at home that caused her to abuse alcohol 4-5 years ago, she subsequently went into liver failure. However, her liver improved without transplant and cessation of alcohol. Patient reports taking large amounts of Aleve, B6, and folate to help her weakness. Patient is mostly bed bound and only moves a few steps a day in her home. Patient does not follow with a PMD. Patient denied CP, n/v, abdominal pain, fever, chills, AYALA, or dizziness. Hospital Course: Pt was initially being worked up for anemia, which given hx upon presentation was likely thought to be 2/2 GI bleed. Pt was transfused 6 units pRBCs, 2 FFP and 1 unit of platelets. Pt was also started on protonix and octreotide drip. Pt was noted to have Hgb of 2.3 upon initial presentation [facility] then improved to 5.4, 5.9 and then finally to 7.5 the next day (04/04/18). Pts hgb remained in the 7's until 04/07 in which it improved to 8.7. Pt was transfused another 3 units pRBCs from 04/04-04/06. Non-contrast abd/pelvic CT showed ascites, anasarca, b/l pleural effusions and upper abdominal adenopathy, cardiomegaly and is noted to be s/p gastric bypass. Pt got an endoscopy per GI and pt was noted to have 3 non-bleeding cratered gastric ulcers with no stigmata of bleeding, with the largest ulcer measuring 8mm in dimension. Biopsy was taken and noted to show benign small bowel with intact villi and mild patchy inflammation. Echo done 04/04 and was noted to have LVEF of 68, with mild MR, TR and mild-mod pulm HTN. CXR showed no acute disease, and renal u/s was unremarkable. R IJ dialysis cath was placed by IR. GI stated that after the endoscopy pt can return to normal activity. Written discharge instructions were given per GI team and emergency contact number also provided per GI. Pt started on CLD per GI and recommended to continue current medical management and signed off the case. Pt then developed Flu and was noted to have UTI. Pt being given HD MWF during hospitlization and is awaiting placement foor HD center and [facility] per PT notes. For the Flu pt was started on tamiflu per ID. Pt noted to have asymptomatic UTI, followed ID recs. Pt then later developed C. diff colitis where she was started on PO Vanc for 10 days. After 9 days the pt began to feel better symptomatically. Pt is now awaiting placement for [facility], as pt has been accepted fro HD. Pt accepted to [facility] today and the plan for discharge was explained to the pt. She expressed understanding and agreement with the medical plan. All of the pts questions and concerns were addressed prior to d/c. For further details please refer to the medical charts for this visit. Discharge Exam - Head Exam Head Exam: ATRAUMATIC, NORMAL INSPECTION, NORMOCEPHALIC - Eye Exam Eye Exam: EOMI, Normal appearance, PERRL - Respiratory Exam Respiratory Exam: Clear to PA & Lateral, NORMAL BREATHING PATTERN, UNREMARKABLE. absent: Rales, Rhonchi, Wheezes, Respiratory Distress - Cardiovascular Exam Cardiovascular Exam: RRR, +S1, +S2. absent: Gallop, Rubs - GI/Abdominal Exam GI & Abdominal Exam: Normal Bowel Sounds, Soft, Unremarkable. absent: Distended, Firm, Guarding, Tenderness - Extremities Exam Extremities exam: normal capillary refill, pedal edema (3+ pitting edema present b/l), pedal pulses present - Back Exam Back exam: NORMAL INSPECTION. absent: CVA tenderness (L), CVA tenderness (R) - Neurological Exam Neurological exam: Alert, Oriented x3 - Psychiatric Exam Psychiatric exam: Normal Affect, Normal Mood - Skin Skin Exam: Dry, Normal Color, Warm Discharge Plan - Follow Up Plan Condition: CRITICAL Disposition: TRANSF TO SNF Instructions: Hemodialysis, Antibiotic-Associated Diarrhea (C. difficile Infection), Flu, Adult (DC), Kidney Failure (DC), Chronic Kidney Disease, End Stage Kidney Disease (DC), Flu Vaccine Additional Instructions: Continue your medications as directed: Flexeril 5 mg 1 tab three times a day Aranesp 200 mcg IV every week Drisdol 1 tablet every week. Pepcid 40 mg daily Prozac 40 mg daily Midodrine 10 mg 1 tab every Monday, Monday, Monday, prior to hemodialysis Nephrovite Zolpidem 10 mg at bedtime Heparin 5000 units subq three times a day. Take additional 2000 units IV every Monday, Monday, Monday. Follow up with your primary care doctor in 1 week upon discharge from rehab program. Obtain a referral for a Marketing Consultant for your end stage renal disease. Your are on hemodialysis [facility], continue your dialysis at the rehab. Evaluate further with your owner/operator whether you need continuation of your dialysis. Return to the ER for any concerns. Referrals: Kenji Salmeron MD [Staff Provider] - <Sagrario Ojeda - Last Filed: 05/12/18 13:43> Provider - Provider Date of Admission: 04/03/18 16:52 Attending physician: Sagrario Ojeda MD Consults: 04/25/18 12:44 Physician Consult Routine Comment: Consulting Provider: Rachel Maradiaga Consulting Physician: Rachel Maradiaga Reason for Consult: depressed mood on Trazadone 04/26/18 15:49 Nursing Referral for Wound Care Routine Comment: FREQUENT BOWEL MOVEMENTS CDIFF Physician Instructions: Reason For Exam: MASD, SKIN BREAK TO SKIN FOLDS BUTTOCK AREA 04/29/18 14:02 Nursing Referral for Wound Care Routine Comment: Physician Instructions: Reason For Exam: MASD 04/29/18 20:53 Nursing Referral for Wound Care Routine Comment: Physician Instructions: Reason For Exam: MASD 05/04/18 18:03 Orthopedic Consult Routine Comment: Consulting Provider: Bart Montalvo Consulting Physician: Bart Montalvo Reason for Consult: Burning sensation on right lower extremity 04/03/18 18:05 Gastroenterology Consult Stat Comment: Consulting Provider: Be Melo Consulting Physician: Be Melo Reason for Consult: ? GI bleed 04/03/18 18:15 Nephrology Consult Routine Comment: Consulting Provider: Kenji Salmeron Consulting Physician: Kenji Salmeron Reason for Consult: renal failure 04/03/18 18:26 Psychiatry Consult Routine Comment: Consulting Provider: Rachel Maradiaga Consulting Physician: Rachel Maradiaga Reason for Consult: severe depression 04/04/18 05:58 Nursing Referral for Wound Care Routine Comment: PRESSURE FROM BED Physician Instructions: HEELS REDDENED Reason For Exam: BILATERAL HEEL DECUBITUS 04/05/18 07:02 Radiology Consult Routine Comment: Consulting Provider: Ramsey Ny Consulting Physician: Ramsey Ny Reason for Consult: Permacath placement for HD 04/06/18 09:44 Podiatry Consult Routine Comment: Consulting Provider: Darline Rice Consulting Physician: Darline Rice Reason for Consult: B/L leg weeping 04/07/18 09:06 Consult [Physician Consult] Routine Comment: review C & S results Consulting Provider: Orion Thompson Consulting Physician: Orion Thompson Reason for Consult: review C & S results 04/09/18 12:40 Hairspring Vibrator [Case Management Referral] Routine Comment: Physician Instructions: Reason For Exam: evaluate for outpatient hemodialysis Reason for Referral: Discharge Planning 04/16/18 17:12 Case Management Referral Routine Comment: Form left in patient's chart, please advise Physician Instructions: Unclear home situation-unsure whether to sign form Reason For Exam: Pt's partner requesting FMLA form signed by doctor Reason for Referral: Hairspring Vibrator Va Hospital Course - Lab Results Lab Results: Micro Results 04/24/18 00:50 Stool C. difficile Antigen & Toxins A,B - Final 04/13/18 09:25 Blood-Venous Blood Culture - Final NO GROWTH AFTER 5 DAYS 04/13/18 09:25 Blood-Venous Gram Stain - Final TEST NOT PERFORMED 04/13/18 09:15 Blood-Venous Blood Culture - Final NO GROWTH AFTER 5 DAYS 04/13/18 09:15 Blood-Venous Gram Stain - Final TEST NOT PERFORMED 04/13/18 16:46 Urine,Catheterized Urine Culture - Final Klebsiella Ozaenae Yeast Species 04/03/18 18:35 Blood Blood Culture - Final NO GROWTH AFTER 5 DAYS 04/03/18 18:35 Blood Gram Stain - Final TEST NOT PERFORMED 04/03/18 18:30 Blood Blood Culture - Final NO GROWTH AFTER 5 DAYS 04/03/18 18:30 Blood Gram Stain - Final TEST NOT PERFORMED 04/06/18 16:30 Leg - Left Gram Stain - Final 04/06/18 16:30 Leg - Left Wound Culture - Final Enterobacter Cloacae Ssp Cloac Enterococcus Faecalis 04/05/18 20:20 Urine,[place] Urine Culture - Final Escherichia Coli 04/03/18 21:54 Nose MRSA Culture (Admit) - Final MRSA NOT DETECTED 04/03/18 19:20 Urine,Clean Catch Urine Culture - Final 50-100,000 CFU/ML. MULTIPLE SPECIES. SUGGEST REPEAT SPECIMEN. Most Recent Lab Values WBC 6.3 10^3/uL (4.5-11.0) 05/09/18 08:30 RBC 3.19 10^6/uL (3.5-6.1) L 05/09/18 08:30 Hgb 8.9 g/dL (12.0-16.0) L 05/09/18 08:30 Hct 28.9 % (36.0-48.0) L 05/09/18 08:30 MCV 90.6 fl (80.0-105.0) 05/09/18 08:30 MCH 27.9 pg (25.0-35.0) 05/09/18 08:30 MCHC 30.8 g/dl (31.0-37.0) L 05/09/18 08:30 RDW 20.5 % (11.5-14.5) H 05/09/18 08:30 Plt Count 131 10^3/uL (120.0-450.0) 05/09/18 08:30 MPV 8.3 fl (7.0-11.0) 05/09/18 08:30 Gran % 66.0 % (50.0-68.0) 05/04/18 06:20 Lymph % (Auto) 15.2 % (22.0-35.0) L 05/04/18 06:20 [place] % (Auto) 10.5 % (1.0-6.0) H 05/04/18 06:20 Eos % (Auto) 7.9 % (1.5-5.0) H 05/04/18 06:20 Baso % (Auto) 0.4 % (0.0-3.0) 05/04/18 06:20 Gran # 5.09 (1.4-6.5) 05/04/18 06:20 Lymph # (Auto) 1.2 (1.2-3.4) 05/04/18 06:20 [place] # (Auto) 0.8 (0.1-0.6) H 05/04/18 06:20 Eos # (Auto) 0.6 (0.0-0.7) 05/04/18 06:20 Baso # (Auto) 0.03 K/mm3 (0.0-2.0) 05/04/18 06:20 Neutrophils % (Manual) 88 % (50.0-70.0) H 04/12/18 06:00 Lymphocytes % (Manual) 1 % (22.0-35.0) L 04/12/18 06:00 Monocytes % (Manual) 7 % (1.0-6.0) H 04/12/18 06:00 Eosinophils % (Manual) 4 % (0.0-3.0) H 04/12/18 06:00 Platelet Evaluation Low (NORMAL) 04/12/18 06:00 Anisocytosis (manual) 1+ 04/12/18 06:00 Macrocytosis (manual) Slight 04/12/18 06:00 Retic Count 5.63 % (0.5-1.5) H 04/03/18 18:15 Haptoglobin 63.4 mg/dL (30.0-200.0) 04/03/18 19:00 PT 13.2 SECONDS (9.4-12.5) H 04/03/18 15:44 INR 1.15 04/03/18 15:44 APTT 30.7 Seconds (25.1-36.5) 04/03/18 15:44 pCO2 24 mm/Hg (35-45) L 04/04/18 01:30 pO2 164.0 mm/Hg (80-100) H 04/04/18 01:30 HCO3 10.8 mmol/L (21-28) L 04/04/18 01:30 ABG pH 7.26 (7.35-7.45) L 04/04/18 01:30 ABG Total CO2 11.5 mmol.L (22-28) L 04/04/18 01:30 ABG O2 Saturation 98.9 % (95-98) H 04/04/18 01:30 ABG O2 Content 7.2 ML/dl (15-23) L 04/04/18 01:30 ABG Base Excess -15.0 mmol/L (-2.0-3.0) L 04/04/18 01:30 ABG Hemoglobin 5.0 g/dL (11.7-17.4) L 04/04/18 01:30 ABG Carboxyhemoglobin 2.2 % (0.5-1.5) H 04/04/18 01:30 POC ABG HHb (Measured) 1.1 % (0-5) 04/04/18 01:30 ABG Methemoglobin 1.2 % (0.0-3.0) 04/04/18 01:30 ABG O2 Capacity 7.3 mL/dl (16-24) L 04/04/18 01:30 Hgb O2 Saturation 95.5 % (95.0-98.0) 04/04/18 01:30 FiO2 32.0 % 04/04/18 01:30 Sodium 136 mmol/L (132-148) 05/09/18 08:30 Potassium 3.4 mmol/L (3.6-5.0) L 05/09/18 08:30 Chloride 102 mmol/L (98-107) 05/09/18 08:30 Carbon Dioxide 28 mmol/L (21-33) 05/09/18 08:30 Anion Gap 9 (10-20) L 05/09/18 08:30 BUN 23 mg/dL (7-21) H 05/09/18 08:30 Creatinine 3.3 mg/dl (0.7-1.2) H 05/09/18 08:30 Est GFR ( Amer) 18 05/09/18 08:30 Est GFR (Non-Af Amer) 15 05/09/18 08:30 POC Glucose (mg/dL) 70 mg/dL (65-110) 05/09/18 06:55 Random Glucose 98 mg/dL (70-110) 05/09/18 08:30 Calcium 7.9 mg/dL (8.4-10.5) L 05/09/18 08:30 Phosphorus 3.3 mg/dL (2.5-4.5) 05/07/18 10:00 Magnesium 1.9 mg/dL (1.7-2.2) 05/07/18 10:00 Iron 19 ug/dL (45-180) L 04/03/18 18:13 TIBC 338 ug/dL (265-497) 04/03/18 18:13 % Saturation 6 % (20-55) L 04/03/18 18:13 Ferritin 16.1 ng/mL 04/03/18 18:13 Total Bilirubin 1.8 mg/dL (0.2-1.3) H 05/07/18 10:00 AST 39 U/L (14-36) H 05/07/18 10:00 ALT 27 U/L (7-56) 05/07/18 10:00 Alkaline Phosphatase 324 U/L (38-126) H 05/07/18 10:00 Ammonia 39 umol/L (9-33) H 04/03/18 15:44 Lactate Dehydrogenase 518 U/L (333-699) 04/03/18 15:44 Total Creatine Kinase 291 U/L (35-230) H 04/03/18 15:44 CK-MB (CK-2) 5.0 ng/mL (0.0-3.6) H 04/03/18 15:44 CK-MB (CK-2) % 1.7 % (2.5-3.0) L 04/03/18 15:44 Troponin I 0.11 ng/mL 04/03/18 15:44 NT-Pro-B Natriuret Pep 28819 pg/mL (0-450) H 04/03/18 15:44 Total Protein 5.7 g/dL (5.8-8.3) L 05/07/18 10:00 Total Protein (PEP) 4.8 g/dL (6.1-8.1) L 04/07/18 08:30 Albumin 2.0 g/dL (3.0-4.8) L 05/07/18 10:00 Albumin (PEP) 2.1 g/dL (3.8-4.8) L 04/07/18 08:30 Globulin 3.7 gm/dL 05/07/18 10:00 Albumin/Globulin Ratio 0.6 (1.1-1.8) L 05/07/18 10:00 Akvou-2-Atpqelind 0.4 g/dL (0.2-0.3) H 04/07/18 08:30 Bnwgo-3-Wgqpnhpfr 0.3 g/dL (0.5-0.9) L 04/07/18 08:30 Gorb-5-Ufolyytb 0.4 g/dL (0.4-0.6) 04/07/18 08:30 Gmjx-0-Hjyvkmpj 0.4 g/dL (0.2-0.5) 04/07/18 08:30 Gamma Globulins 1.3 g/dL (0.8-1.7) 04/07/18 08:30 Abnorm Protein Band 1 TEST NOT PERFORMED 04/07/18 08:30 Abnorm Protein Band 2 TEST NOT PERFORMED 04/07/18 08:30 Abnorm Protein Band 3 TEST NOT PERFORMED 04/07/18 08:30 Vitamin B12 950 pg/mL (239-931) H 04/03/18 19:00 25-OH Vitamin D Total < 12.8 NG/ML (30.0-100.0) L 04/07/18 08:30 Folate 13.3 ng/mL 04/03/18 19:00 Procalcitonin 0.77 NG/ML (0.19-0.49) H 04/13/18 09:15 Free T4 0.91 ng/dL (0.78-2.19) 04/04/18 13:10 Total T3 0.53 ng/mL (0.97-1.69) L 04/04/18 13:10 TSH 3rd Generation 6.37 mIU/mL (0.46-4.68) H 04/03/18 15:44 PTH Intact Whole Molec 321 pg/mL (14-64) H 04/06/18 10:50 Urine Color Light brown (YELLOW) 04/13/18 16:46 Urine Appearance Cloudy (CLEAR) 04/13/18 16:46 Urine pH 5.5 (4.7-8.0) 04/13/18 16:46 Ur Specific [place] 1.025 (1.005-1.035) 04/13/18 16:46 Urine Protein 100 mg/dL (<30 mg/dL) H 04/13/18 16:46 Urine Glucose (UA) Negative mg/dL (NEGATIVE) 04/13/18 16:46 Urine Ketones Trace mg/dL (NEGATIVE) H 04/13/18 16:46 Urine Blood Large (NEGATIVE) H 04/13/18 16:46 Urine Nitrate Positive (NEGATIVE) H 04/13/18 16:46 Urine Bilirubin Moderate (NEGATIVE) H 04/13/18 16:46 Urine Urobilinogen 1.0 E.U./dL (<1 E.U./dL) H 04/13/18 16:46 Ur Leukocyte Esterase Moderate Johnie/uL (NEGATIVE) H 04/13/18 16:46 Urine RBC 25 - 30 /hpf (0-2) H 04/13/18 16:46 Urine WBC Tntc /hpf (0-6) H 04/13/18 16:46 Ur Epithelial Cells 6 - 8 /hpf (0-5) H 04/13/18 16:46 Urine Bacteria Many /hpf (NONE) 04/13/18 16:46 Urine Other Uyeast /hpf 04/13/18 16:46 Ur Random Creatinine 139 mg/dL 04/13/18 16:46 U Random Total Protein 930 mg/g creat (21-161) H 04/07/18 05:00 Ur Random Sodium 55 meq/L 04/13/18 16:46 Ur Random Potassium 29.8 meq/L 04/13/18 16:46 Ur Random Urea Nitrogn 301 mg/dL 04/04/18 06:30 Urine Collection Time 24 HOURS 04/20/18 18:21 Urine Total Volume 200 mL (800-1400) L 04/20/18 18:21 Creatinine Clearance 6.0 ml/min (80-120) L 04/20/18 18:21 Urine Total Volume 38.5 mg/dL 04/07/18 05:00 Microalb/Creat Ratio 245 (<30) H 04/07/18 05:00 Urine Opiates Screen Negative (NEGATIVE) 04/03/18 17:39 Urine Methadone Screen Negative (NEGATIVE) 04/03/18 17:39 Ur Barbiturates Screen Negative (NEGATIVE) 04/03/18 17:39 Ur Phencyclidine Scrn Negative (NEGATIVE) 04/03/18 17:39 Ur Amphetamines Screen Negative (NEGATIVE) 04/03/18 17:39 U Benzodiazepines Scrn Negative (NEGATIVE) 04/03/18 17:39 U Oth Cocaine Metabols Negative (NEGATIVE) 04/03/18 17:39 U Cannabinoids Screen Negative (NEGATIVE) 04/03/18 17:39 Alcohol, Quantitative < 10 mg/dL (0-10) 04/03/18 15:44 OTIS & SPEP Interp See note 04/07/18 08:30 Serum Immunofixation Not detected 04/07/18 08:30 HORACE Screen Negative (Negative) 04/06/18 10:50 HORACE Titer TEST NOT PERFORMED 04/06/18 10:50 HORACE Titer 2 TEST NOT PERFORMED 04/06/18 10:50 HORACE Pattern TEST NOT PERFORMED 04/06/18 10:50 HORACE Pattern 2 TEST NOT PERFORMED 04/06/18 10:50 ANCA Screen Negative (NEGATIVE) 04/06/18 10:50 c-ANCA Titer TNP 04/06/18 10:50 Proteinase 3 (PR3) <1.0 AI (<1.0) 04/06/18 10:50 p-ANCA Titer TNP 04/06/18 10:50 Atypical p-ANCA Titer TNP 04/06/18 10:50 Myeloperoxidase Ab <1.0 AI (<1.0) 04/06/18 10:50 Double Strand DNA Ab 1 IU/mL 04/06/18 10:50 Complement C3 48.0 mg/dL (88.0-165.0) L 04/06/18 10:50 Complement C4 14.0 mg/dL (14.0-44.0) 04/06/18 10:[address] [place] [address]/Lambda Ratio 2.25 (1.29-2.55) 04/07/18 08:[address] [place] Light Chain Anal 437 mg/dL (176-443) 04/07/18 08:30 Lambda Light Chain Anal 194 mg/dL (91-240) 04/07/18 08:30 Hepatitis A IgM Ab Negative (NEGATIVE) 04/04/18 13:10 Hep Bs Antigen Negative (NEGATIVE) 05/04/18 09:30 Hep Bs Antibody Negative (NEGATIVE) 05/04/18 09:30 Hep B Core IgM Ab Negative (NEGATIVE) 05/04/18 09:30 Hepatitis C Antibody Non reactive (Non Reactive) 04/05/18 12:45 Hep C Ab Signal/Cutoff 0.05 (<1.0) 04/05/18 12:45 HIV 1&2 Ag/Ab, 4th Gen Nonreactive (Nonreactive) 04/04/18 13:10 Influenza Typ A,B (EIA) Pos for influenza a (NEGATIVE) H 04/13/18 16:46 Blood Type B NEGATIVE 04/06/18 10:00 Blood Type Confirm B NEGATIVE 04/03/18 18:50 Antibody Screen Negative 04/06/18 10:00 Crossmatch See Detail 04/06/18 10:00 BBK History Checked Patient has bt 04/06/18 10:00 Attending/Attestation - Attestation I have personally seen and examined this patient.: Yes I have fully participated in the care of the patient.: Yes I have reviewed all pertinent clinical information, including history, physical exam and plan: Yes Notes (Text): 05/12/18 13:37 Medical record note made by the resident after discussion with my direction and input after the patient was personally seen and examined by me. I have reviewed the chart and agree that the record accurately reflects by personal performance of the history, physical exam, data review, and medical decision-making, in the course for the patient. I have also personally directed the plan of care 52 year old female with past medical history of liver failure, alcohol abuse, depression and gastric bypass surgery who presented with complaint of generalized weakness, fatigue and dark stools. She was found to have acute mi crocytic anemia (Hemoglobin was 2.3)and severe metabolic acidosis with acute renal failure. (Creatinin was 7.1) She is s/p multiple PRBC transfusions. She is s/p EGD which showed multiple gastric ulcers. Patient is on PPI. Hemoglobin is stable. Patient was treated with hemodialysis for renal failure, currently on on hemodialysis 3 times a week MWF Patient developed diarrhea and was found to have C diff colitis.Patient is SP treatment for C diff colitis and Influenza infection. Physical therapy recommended [facility] , Patient will be discharged to [facility] for rehabilitation. Management plan was discussed in detail with patient. Education was provided 05/12/18 13:38 05/12/18 13:39
--- NOTE | 2018-05-11 14:02 | CP.PCM.PN ---
Subjective - Date & Time of Evaluation Date of Evaluation: 05/11/18 Time of Evaluation: 10:30 - Subjective Subjective: No fevers, not in distress, no diarrhea. Objective - Vital Signs/Intake and Output Vital Signs (last 24 hours): Temp Pulse Resp BP Pulse Ox 98 F 82 18 109/58 L 93 L 05/10/18 06:00 05/10/18 06:00 05/10/18 06:00 05/10/18 06:00 05/10/18 06:00 Intake and Output: 05/10/18 05/10/18 06:59 18:59 Intake Total 0 Balance 0 - Medications Medications: Current Medications Acetaminophen (Tylenol 325mg Tab) 650 mg PO Q6 PRN PRN Reason: Fever >100.4 F Last Admin: 04/13/18 05:56 Dose: 650 mg Alprazolam (Xanax) 0.25 mg PO TID PRN; Protocol PRN Reason: Anxiety Last Admin: 05/10/18 12:25 Dose: 0.25 mg Cyclobenzaprine HCl (Flexeril) 5 mg PO TID [facility] Last Admin: 05/10/18 13:50 Dose: 5 mg Darbepoetin Fletcher (Aranesp) 200 mcg IVP QWK [facility] Last Admin: 04/30/18 09:36 Dose: 200 mcg Ergocalciferol (Drisdol 50,000 Intl Units Cap) 1 cap PO Q7D [facility] Stop: 06/26/18 13:01 Last Admin: 05/08/18 13:31 Dose: 1 cap Famotidine (Pepcid) 40 mg PO HS [facility] Last Admin: 05/09/18 21:31 Dose: 40 mg Fluoxetine HCl (Prozac) 40 mg PO DAILY [facility] Last Admin: 05/10/18 09:48 Dose: 40 mg Heparin Sodium (Porcine) (Heparin) 5,000 units SC Q8 [facility]; Protocol Last Admin: 05/10/18 13:50 Dose: 5,000 units Heparin Sodium (Porcine) (Heparin) 2,000 units IVP MWF [facility]; Protocol Last Admin: 05/09/18 12:36 Dose: Not Given Iron Sucrose 100 mg/ Sodium (Chloride) 105 mls @ 210 mls/hr IVPB QWK [facility] Stop: 05/18/18 10:29 Last Admin: 05/04/18 12:59 Dose: 210 mls/hr Midodrine (Proamatine) 10 mg PO MWF [facility] Last Admin: 05/09/18 09:04 Dose: 10 mg Multi-Ingredient Ointment (Hydrophor Oint) 0 gm TOP Q12 [facility] Last Admin: 05/10/18 09:49 Dose: Not Given Spironolactone (Aldactone) 50 mg PO DAILY [facility] Stop: 05/25/18 10:01 Last Admin: 05/10/18 09:47 Dose: 50 mg Vitamin B Complex/Vit C/Folic Acid (Nephro-Bhupinder) 1 tab PO 0800 [facility] Last Admin: 05/10/18 09:48 Dose: 1 tab Zolpidem Tartrate (Ambien) 10 mg PO HS [facility]; Protocol Last Admin: 05/09/18 21:35 Dose: 10 mg - Labs Labs: 05/09/18 08:30 05/09/18 08:30 PT 13.2 SECONDS (9.4-12.5) H 04/03/18 15:44 INR 1.15 04/03/18 15:44 APTT 30.7 Seconds (25.1-36.5) 04/03/18 15:44 - Constitutional Appears: Chronically Ill - Head Exam Head Exam: NORMAL INSPECTION - Respiratory Exam Respiratory Exam: Decreased Breath Sounds - Cardiovascular Exam Cardiovascular Exam: +S1, +S2 - GI/Abdominal Exam GI & Abdominal Exam: Soft. absent: Tenderness Assessment and Plan - Assessment and Plan (Free Text) Plan: Assessment S/P C. diff. colitis S/P treatment of Influenza A infection S/P UTI with Klebsiella chronic lymphedema of lower extremities without evidence of cellulitis morbid obesity with BMI 52 chronic renal failure on dialysis R/O peripheral vascular disease Plan completed 14 day course of PO Vancomycin continue to monitor clinically off antibiotics since she is at risk for nosoc omial infections
--- NOTE | 2018-05-11 14:09 | CP.PCM.PN ---
Subjective - Date & Time of Evaluation Date of Evaluation: 05/11/18 Time of Evaluation: 10:00 - Subjective Subjective: Nephrology Consultation Note: Assessment: stable oligoanuric Acute Kidney Injury (N17.9) likely due to ATN, pre-renal state, intrasvasc hypovolemia, impaired renal perfusion, HD 04/05/18: first session. probably ESRD anasarca severe symptomatic anemia due to GI bleed with gastric ulcers mild hyperkalemia and HAGMA, hyperphos hx of cirrhosis and etoh intra-ab lymphadenopathy morbid obesity acute influenza C diff colitis Plan HD tolerated well so far, on MWF schedule. 04/20/18: 24 hr crcl: 6 and volume 200 mL. no evidence of renal recovery yet. probably ESRD. will repeat 24 hr crcl Maintain hemodynamics stable. Avoid hypotension. Patient not on ACEI/ARB due to recent FELIPE. added midodrine pre HD Monitor Input/Output, daily weights and renal function with basic metabolic panel held phos binders due to diarrhoea PRBC as needed. s/p 1 gram IV iron, now on weekly aranesp/IV iron GI consult, pt on PPI work up for FELIPE and anemia as ordered. GN work up neg hence will defer kidney biopsy. also pt with liver disease and morbidly obese. started weekly vit d consider further work up for ascites. started on aldactone 50 mg/d to reduce portal HTN completed antibiotics for c.diff Dose meds/antibiotics for reduced GFR. Avoid fleets enema/magnesium based laxatives. Avoid nephrotoxins/NSAIDs/ iodinated contrast (unless needed esequiel gently) Glycemic control Further work up/management as per primary team she is arranged for outpt HD. Thanks for allowing me to participate in care of your patient. Will follow patient with you. Please call if any Qs. had d/w team Dr Kenji Salmeron Office: [phone] Chief Complaint; fatigue Reason for consult: Acute Kidney Injury HPI: Pt is a 52 F with hx of alcoholism in past, cirrhosis (pt states got better on its own in past) but no regular follow up with PMD presented with complaints of fatigue and tiredness for last few days, found to have severe anemia and FELIPE Denies OTC/herbal meds but NSAIDs as alleve for last few days No recent iodinated contrast exposure. Noted obvious episodes of low BP. reports chronic leg swelling but more now denies smoking or etoh now ROS: Cardiovascular: No chest pain. Pulmonary: no shortness of breath no cough Gastrointestinal: denies abdominal pain No nausea. No vomiting. diarrhoea resolved. Genitourinary: not much UOP All other negative except as mentioned in HPI Physical Examination: seen on HD General Appearance: Comfortable, in no acute respiratory distress, co-operative . morbid obese Vitals reviewed and noted as below Head; Atraumatic, normocephalic ENT: no ulcers no thrush. Tongue is midline. Oropharynx: no rash or ulcers. EYES: Pupils are equal, round and reactive to light accommodation. Eye muscles and extraocular movement intact. Sclera is anicteric. Neck; supple no lymphadenopathy, no thyromegaly or bruit Lungs: Normal respiratory rate/effort. Breath sounds bilateral clear Heart: Normal rate. s1s2 normal. No rub or gallop. Extremities: 1-2+ edema. Neurological: Patient is alert, awake and oriented to person, place and time. No focal deficit. Strength bilateral appropriate and equal Skin: Warm and dry. Normal turgor. spider angioma rash upper chest. Palpitation: Normal elasticity for age Abdomen: Abdomen is soft. Bowel sounds +. There is no abdominal tenderness, no guarding/rigidity no organomegaly. limited due to obesity and abd wall edema Psych: normal insight and flat affect/mood MSK: no joint tenderness or swelling. Digits and nails normal, no deformity : kidney or bladder not palpable. has access as permacath Labs/imaging reviewed. Past medical history, past surgical history, family history, social history, allergy reviewed and noted as below Family hx: no hx of CKD. Rest non-contributory fena 0.3% intra-ab lymphadenopathy Objective - Vital Signs/Intake and Output Vital Signs (last 24 hours): Temp Pulse Resp BP Pulse Ox 98.9 F 87 20 98/44 L 95 05/11/18 06:00 05/11/18 06:00 05/11/18 06:00 05/11/18 06:00 05/11/18 06:00 Intake and Output: 05/11/18 05/11/18 06:59 18:59 Intake Total 420 Balance 420 - Medications Medications: Current Medications Cyclobenzaprine HCl (Flexeril) 5 mg PO TID [facility] Last Admin: 05/10/18 17:07 Dose: 5 mg Darbepoetin Fletcher (Aranesp) 200 mcg IVP QWK [facility] Last Admin: 04/30/18 09:36 Dose: 200 mcg Ergocalciferol (Drisdol 50,000 Intl Units Cap) 1 cap PO Q7D [facility] Stop: 06/26/18 13:01 Last Admin: 05/08/18 13:31 Dose: 1 cap Famotidine (Pepcid) 40 mg PO HS [facility] Last Admin: 05/10/18 23:04 Dose: 40 mg Fluoxetine HCl (Prozac) 40 mg PO DAILY [facility] Last Admin: 05/10/18 09:48 Dose: 40 mg Heparin Sodium (Porcine) (Heparin) 5,000 units SC Q8 [facility]; Protocol Last Admin: 05/11/18 05:33 Dose: 5,000 units Heparin Sodium (Porcine) (Heparin) 2,000 units IVP MWF [facility]; Protocol Last Admin: 05/11/18 11:44 Dose: 2,000 units Iron Sucrose 100 mg/ Sodium (Chloride) 105 mls @ 210 mls/hr IVPB QWK [facility] Stop: 05/18/18 10:29 Last Admin: 05/04/18 12:59 Dose: 210 mls/hr Midodrine (Proamatine) 10 mg PO MWF [facility] Last Admin: 05/09/18 09:04 Dose: 10 mg Multi-Ingredient Ointment (Hydrophor Oint) 0 gm TOP Q12 [facility] Last Admin: 05/10/18 09:49 Dose: Not Given Spironolactone (Aldactone) 50 mg PO DAILY [facility] Stop: 05/25/18 10:01 Last Admin: 05/10/18 09:47 Dose: 50 mg Vitamin B Complex/Vit C/Folic Acid (Nephro-Bhupinder) 1 tab PO 0800 [facility] Last Admin: 05/10/18 09:48 Dose: 1 tab Zolpidem Tartrate (Ambien) 10 mg PO [facility]; Protocol Last Admin: 05/10/18 23:04 Dose: 10 mg - Labs Labs: 05/09/18 08:30 05/09/18 08:30 PT 13.2 SECONDS (9.4-12.5) H 04/03/18 15:44 INR 1.15 04/03/18 15:44 APTT 30.7 Seconds (25.1-36.5) 04/03/18 15:44
[2018-05-11] MEDS: Petrolatum-Mineral Oil Oint (100gm) TOP SCH (14:26)
[2018-05-11 15:03] VITALS: BP 106/54; PULSE 82; RESP 18; TEMP 98.3; O2SAT 98
== END 2018-05-11 18:14 | DRG 469 ==
LOC: ED 14:35 → ERH 16:52 → CCU 21:22 → 2RNO 04-06 14:22 → 5RNO 04-12 14:24
PROVIDERS: ADMIT Internal Medicine; ATTEND Internal Medicine
PROC: 30233K1 Transfusion of Nonautologous Frozen Plasma into Peripheral Vein, Percutaneous Approach (ICD-10-PCS; 2018-04-03)
PROC: 30233N1 Transfusion of Nonautologous Red Blood Cells into Peripheral Vein, Percutaneous Approach (ICD-10-PCS; 2018-04-04)
PROC: B543ZZA Ultrasonography of Right Jugular Veins, Guidance (ICD-10-PCS; 2018-04-05)
PROC: 5A1D70Z Performance of Urinary Filtration, Intermittent, Less than 6 Hours Per Day (ICD-10-PCS; 2018-04-05)
PROC: 0DB68ZX Excision of Stomach, Via Natural or Artificial Opening Endoscopic, Diagnostic (ICD-10-PCS; 2018-04-05)
PROC: 02H633Z Insertion of Infusion Device into Right Atrium, Percutaneous Approach (ICD-10-PCS; principal; 2018-04-05 11:45)
DX: N17.0 Acute kidney failure with tubular necrosis (principal); K25.4 Chronic or unspecified gastric ulcer with hemorrhage; A41.89 Other specified sepsis; J11.1 Influenza due to unidentified influenza virus with other respiratory manifestations; A04.72 Enterocolitis due to Clostridium difficile, not specified as recurrent; L97.429 Non-pressure chronic ulcer of left heel and midfoot with unspecified severity; N39.0 Urinary tract infection, site not specified; E87.2 Acidosis; N18.6 End stage renal disease; E83.39 Other disorders of phosphorus metabolism; E87.5 Hyperkalemia; E86.1 Hypovolemia; K76.6 Portal hypertension; I27.20 Pulmonary hypertension, unspecified; D50.0 Iron deficiency anemia secondary to blood loss (chronic); F06.30 Mood disorder due to known physiological condition, unspecified; F32.9 Major depressive disorder, single episode, unspecified; F43.23 Adjustment disorder with mixed anxiety and depressed mood; K70.31 Alcoholic cirrhosis of liver with ascites; I89.0 Lymphedema, not elsewhere classified; F10.21 Alcohol dependence, in remission; G47.00 Insomnia, unspecified; B95.2 Enterococcus as the cause of diseases classified elsewhere; B96.89 Other specified bacterial agents as the cause of diseases classified elsewhere; B96.20 Unspecified Escherichia coli [E. coli] as the cause of diseases classified elsewhere; B96.1 Klebsiella pneumoniae [K. pneumoniae] as the cause of diseases classified elsewhere; F41.1 Generalized anxiety disorder; E66.01 Morbid (severe) obesity due to excess calories; Z68.43 Body mass index [BMI] 50.0-59.9, adult; Z75.1 Person awaiting admission to adequate facility elsewhere; Z87.891 Personal history of nicotine dependence; Z99.2 Dependence on renal dialysis; Z74.01 Bed confinement status; Z98.84 Bariatric surgery status